=== PATIENT | female | born 1965 | race Two or more races ===

== ENCOUNTER → 2020-04-19 07:55 | Outpatient (BNVA) | payer OTHER, SELFPAY | PROVIDERS: PCP Family Medicine; Visit Provider Hospitalist | DX: J44.9 Chronic obstructive pulmonary disease, unspecified (principal); R91.8 Other nonspecific abnormal finding of lung field; F17.200 Nicotine dependence, unspecified, uncomplicated | CPT/HCPCS: 99204 ==

== ENCOUNTER 2020-05-05 11:10 | Outpatient (REF) | payer OTHER, SELFPAY ==
[2020-05-05 13:09] LABS: Erythrocyte Sedimentation Rate 40 MM/HR (0-20)
[2020-05-05 13:16] LABS: Vitamin B12 470 pg/mL (200-900)
[2020-05-05 13:20] LABS: TSH reflex Free T4 < 0.01 mIU/mL (0.32-4.0)
[2020-05-05 13:58] LABS: Anion Gap 15 (12-20); Blood Urea Nitrogen 10 mg/dL (9-16); C Reactive Protein 1.69 mg/dL (< or = 0.50); Calcium 9.7 mg/dL (8.4-10.2); Carbon Dioxide 27 mmol/L (22-29); Chloride 104 mmol/L (96-108); Estimated Glomerular Filt Rate > 60; Glucose Random 114 mg/dL (60-115); Lactate Dehydrogenase 202 U/L (122-220); Potassium 4.5 mmol/l (3.3-5.1); Sodium 141 mmol/L (135-145)
[2020-05-05 14:18] LABS: Free T4 (Free Thyroxine) 1.94 ng/dL (0.71-1.85)
== END 2020-05-05 11:11 | disposition home or self-care (01) ==
LOC: HO.LAB 11:10
PROVIDERS: PCP Family Medicine; Visit Provider Family Medicine
DX: M79.89 Other specified soft tissue disorders (principal); R00.2 Palpitations; R25.2 Cramp and spasm
CPT/HCPCS: 36415; 80048; 82550; 82607; 83615; 83735; 84439; 84443; 85652; 86140

== ENCOUNTER 2020-05-07 07:56 | Outpatient (REF) | payer OTHER, SELFPAY ==
--- NOTE | 2020-05-07 08:00 | CT_ITS ---
EXAMINATION: CT CHEST WITHOUT CONTRAST CLINICAL INFORMATION: Pulmonary nodules. COMPARISON: CTA chest 04/01/2020. TECHNIQUE: Multidetector volumetric CT imaging of the chest was done. Axial MIP volume rendering provided. Sagittal and coronal reformatted images were obtained. This CT examination was performed using dose optimization techniques as appropriate, variously including the following: *Automated exposure control *Adjustment of mA and/or kV according to patient size (this includes techniques or standardized protocols for targeted exams where dose is matched to indication/reason for exam; i.e. extremities or head) *Use of iterative reconstruction technique DLP: 146 mGy-cm. FINDINGS: CASH APPLICATION CLERK: Unremarkable. LUNGS: The lungs are hyperinflated from centrilobular emphysema but no acute pneumonic process. There are small right apical cyst. There is a 2 mm calcified nodule left upper lobe image 185/5, a subpleural 2 mm nodular density right upper lobe axial image 186/5, a 2 mm calcified nodule left upper lobe axial image 246/5, a 1 mm intrabronchial nodules in right upper lobe on axial image 222/5 and 229/5, a 3 mm nodule right lower lobe superior segment axial image 244/5 and a 7 mm nodule right upper lower lobe adjacent to the major fissure axial image 260/5. There are several additional calcified and noncalcified scattered nodules throughout both lungs. There are 3 mm nodules along the right minor fissure axial image 269/5. MEDIASTINUM: The thyroid lobes are symmetric and normal. The central trachea and the bronchi are widely patent. Heart size and the great vessels are normal caliber. There is a 1 cm pretracheal lymph node and small shotty lymph nodes in the para-aortic space. PLEURA: There is no pleural effusion. No pleural mass or thickening. AXILLA: No abnormal size lymph nodes seen. UPPER ABDOMEN: Visualized liver, spleen, pancreas and bilateral adrenal glands are unremarkable. The gallbladder has been surgically removed. OSSEOUS STRUCTURES: No lytic or sclerotic process seen. CT/CT chest wo con IMPRESSION: Bilateral scattered pulmonary nodules, largest nodule measuring 7 mm in the right lower lobe superior segment adjacent to the major fissure appears stable dating to 11/20/2019 exam. Additional smaller pulmonary nodules and daniela fissural nodules are stable as well. No new nodules. No acute process.
--- NOTE | 2020-05-07 09:10 | MR_ITS ---
EXAMINATION: MR KNEE WITHOUT AND WITH CONTRAST, LEFT CLINICAL INFORMATION: Soft tissue mass left tibial tuberosity COMPARISON: Radiographs 02/11/2020 ultrasound 03/17/2020 TECHNIQUE: MRI of the knee was performed before and after the intravenous administration of 10 mL Gadavist on a high-field scanner. The area of palpable concern is outlined by skin markers. FINDINGS: MENISCI: Medial meniscus: Minimal inner margin irregularity of the posterior horn. Otherwise intact. Lateral meniscus: Intact. LIGAMENTS: Cruciate: Intact. Collateral: Intact. EXTENSOR MECHANISM: Intact. ARTICULAR CARTILAGE/BONE: Patellofemoral compartment: Mild articular cartilage thinning of the central trochlea. Medial compartment: Mild cartilage thinning throughout the weightbearing aspect with mild surface irregularity of the posterolateral weightbearing femoral condyle. Lateral compartment: Normal. JOINT FLUID AND BURSAE: No significant joint effusion. There is no focal fluid collection, soft tissue mass, or abnormal enhancement in the area of palpable concern, between the skin markers superficial to the proximal tibia/tibial tubercle. MR/MR knee LT wo/w con IMPRESSION: No enhancing soft tissue mass or focal fluid collection to account for a clinically palpable abnormality at the anterior aspect of the proximal tibia. Minimal inner margin irregularity of the posterior horn of the medial meniscus. Menisci are otherwise intact. Mild patellofemoral/medial compartment osteoarthritis.
== END 2020-05-07 07:57 | disposition home or self-care (01) ==
LOC: HO.CT 07:56
PROVIDERS: PCP Family Medicine; Visit Provider Hospitalist
DX: M79.89 Other specified soft tissue disorders (principal); R91.8 Other nonspecific abnormal finding of lung field
CPT/HCPCS: 71250; 73723

== ENCOUNTER 2020-05-07 08:35 | Outpatient (REF) | payer OTHER, SELFPAY | END 2020-05-07 08:36 | disposition home or self-care (01) | LOC: HO.MRI 08:35 | PROVIDERS: PCP Family Medicine; Visit Provider Family Medicine | DX: Z13.89 Encounter for screening for other disorder (principal) ==

== ENCOUNTER → 2020-05-13 09:47 | Outpatient (BNVA) | payer OTHER, SELFPAY | PROVIDERS: PCP Family Medicine; Referring Provider Family Medicine; Visit Provider Internal Medicine Cardiovascular Disease | DX: R00.2 Palpitations (principal); I10 Essential (primary) hypertension; E05.90 Thyrotoxicosis, unspecified without thyrotoxic crisis or storm; F17.200 Nicotine dependence, unspecified, uncomplicated | CPT/HCPCS: 93005; 99202 ==

== ENCOUNTER 2020-05-17 07:45 | Outpatient (REF) | payer OTHER, SELFPAY ==
--- NOTE | 2020-05-17 | PFT_ITS ---
FLOWS: FEV1 of 55% of predicted at 1.73 L. FVC 68% of predicted at 2.61 L. FEV1 to FVC ratio of 0.66. Positive bronchodilator response. LUNG VOLUMES: Total lung capacity 83% of predicted at 4.70 L. Residual volume 117% of predicted at 2.44 L. Slow vital capacity 63% of predicted at 2.27 L. Expiratory reserve volume 24% of predicted at 0.38 L. Diffusion capacity is moderately decreased. IMPRESSION: Moderate to severe obstructive ventilatory defect with positive bronchodilator response. Decreased expiratory reserve volume suggests extrathoracic restriction likely secondary to abdominal obesity. Decreased diffusion capacity suggests emphysema. MD YANY Santoyo/MODL / [id number]
== END 2020-05-17 07:46 | disposition home or self-care (01) ==
LOC: HO.RESP 07:45
PROVIDERS: PCP Family Medicine; Visit Provider Family Medicine
DX: J44.9 Chronic obstructive pulmonary disease, unspecified (principal)
CPT/HCPCS: 94060; 94727; 94729

== ENCOUNTER 2020-05-26 12:20 | Outpatient (REF) | payer OTHER, SELFPAY ==
[2020-05-26 13:11] LABS: MANUAL DIFF FLAG NO
[2020-05-26 13:22] LABS: Basophils Percent Auto 0.4 % (0-2); Eosinophils Absolute Auto 0.1 X10*3/uL (0.0-0.4); Eosinophils Percent Auto 2.2 % (0-4); Hemoglobin 13.3 g/dl (12.0-16.0); Imm Gran Abs Auto 0.01 X10*3/uL (0.00-0.03); Imm Gran Pct Auto 0.2 % (0.0-0.4); Lymphocytes Absolute Auto 1.7 X10*3/uL (1.2-4.9); Lymphocytes Percent Auto 30.5 % (20-40); Mean Corpuscular HGB Conc 31.7 g/dl (31.0-35.0); Mean Corpuscular Hemoglobin 25.2 pg (27.0-33.0); Mean Corpuscular Volume 79.5 fL (80-98); Mean Platelet Volume 9.7 fL (9.4-12.3); Monocytes Absolute Auto 0.4 X10*3/uL (0.1-1.2); Monocytes Percent Auto 7.4 % (2-11); Neutrophils Absolute Auto 3.3 X10*3/uL (2.0-8.3); Neutrophils Percent Auto 59.3 % (45-73); Platelet Count 390 X10*3/uL (160-400); Red Blood Count 5.28 X10*6/uL (4.20-5.50); Red Cell Distribution Width 13.6 % (11.0-16.0); White Blood Count 5.6 X10*3/uL (4.8-10.8)
[2020-05-26 13:32] LABS: Alanine Aminotransferase 30 U/L (0-31); Albumin Level 4.2 g/dL (3.5-5.0); Alkaline Phosphatase 101 U/L (39-117); Anion Gap 13 (12-20); Aspartate Amino Transferase 26 U/L (5-31); Bilirubin Total 0.4 mg/dL (0.0-1.0); Blood Urea Nitrogen 11 mg/dL (9-16); Calcium 9.1 mg/dL (8.4-10.2); Carbon Dioxide 29 mmol/L (22-29); Chloride 101 mmol/L (96-108); Estimated Glomerular Filt Rate > 60; Glucose Random 109 mg/dL (60-115); Potassium 4.4 mmol/l (3.3-5.1); Sodium 139 mmol/L (135-145); Total Protein 7.2 g/dL (6.5-8.0)
[2020-05-26 13:56] LABS: T4 Thyroxine 7.2 ug/dL (4.5-12.0); TSH reflex Free T4 < 0.01 mIU/mL (0.32-4.0)
[2020-05-26 14:33] LABS: Free T4 (Free Thyroxine) 0.91 ng/dL (0.71-1.85)
[2020-05-27 07:42] LABS: Triiodothyronine T3 Free 2.9 pg/mL (2.3-4.2); Triiodothyronine T3 Total 92 ng/dL (76-181)
[2020-05-27 09:37] LABS: Thyroglobulin Antibodies 234 IU/mL (< or = 1)
[2020-05-31 19:11] LABS: Thyroid Stimulating Immunoglob 104 % baseline (<140)
== END 2020-05-26 12:21 | disposition home or self-care (01) ==
LOC: HO.LAB 12:20
PROVIDERS: PCP Family Medicine; Visit Provider Family Medicine
DX: E05.90 Thyrotoxicosis, unspecified without thyrotoxic crisis or storm (principal)
CPT/HCPCS: 36415; 80053; 84436; 84439; 84443; 84445; 84480; 84481; 85025; 86800

== ENCOUNTER 2020-05-27 12:31 | Outpatient (REF) | payer OTHER, SELFPAY | END 2020-05-27 12:32 | disposition home or self-care (01) | LOC: HO.LAB 12:31 | PROVIDERS: Visit Provider Internal Medicine | DX: Z20.828 Contact with and (suspected) exposure to other viral communicable diseases (principal) | CPT/HCPCS: C9803; U0003 ==

== ENCOUNTER 2020-06-02 10:42 | Outpatient (REF) | payer OTHER, SELFPAY ==
--- NOTE | 2020-06-02 | MM_ITS ---
EXAMINATION: MM SCREENING DIGITAL BREAST TOMOSYNTHESIS, BILATERAL CLINICAL INFORMATION: Screening. Asymptomatic. The lifetime risk of breast cancer based on the Tyrer-Cuzick Model is 17%. COMPARISON: Outside mammography 01/08/2018, 06/14/2017, 12/13/2016, 12/08/2016, 06/18/2014 ([place]). TECHNIQUE: Digital breast tomosynthesis is performed in both the craniocaudal and mediolateral oblique views along with computer-aided detection (CAD). Synthesized 2D images are generated from the tomosynthesis. FINDINGS: The breasts are heterogeneously dense, which may obscure small masses (ACR BI-RADS breast composition Category c). There are regional bilateral punctate and moderately coarse calcifications in each breast, more numerous on the left. Calcifications are overall increased since prior outside exams. There is no focal suspicious grouping or ductal distribution. There are scattered bilateral oil cysts with fine calcified rims, left outer quadrant and at least 3 on the right. There is no significant mass or architectural abnormality or developing density 4.8 cm mass central right breast noted on prior exam is no longer demonstrated. The axilla and skin contours are unremarkable. MM/MM tomosynthesis screening BI IMPRESSION: No significant changes from prior studies. ASSESSMENT: BI-RADS 2: Benign RECOMMENDATION: Routine annual mammography screening. This patient's information was entered into a reminder system with a target due date for their next mammogram.
== END 2020-06-02 10:43 | disposition home or self-care (01) ==
LOC: HO.MAMMO 10:42
PROVIDERS: PCP Family Medicine; Visit Provider Family Medicine
DX: Z12.31 Encounter for screening mammogram for malignant neoplasm of breast (principal)
CPT/HCPCS: 77063; 77067

== ENCOUNTER → 2020-06-04 09:38 | Outpatient (REF) | payer OTHER, SELFPAY ==
--- NOTE | 2020-06-04 09:43 | CA_ITS ---
Transthoracic Echocardiogram Patient (Last, First, Middle): Virginie Martins, Gender: Female Date of : 1965 Age: 54 Procedure Date: 06/04/2020 Procedure Type: Transthoracic Echocardiogram Location: OP Height: 172.72 cm Weight: 99.79 kg BSA: 2.13 m2 Heart Rate: bpm BP: 138 / 66 mmHg Prison Officer: Cristina MD: Vikas Bañuelos MD Symptoms: I10 - Essential (primary) hypertension Study Quality: Good ECG Rhythm: Sinus Conclusions: - The left ventricular systolic function is normal. The visually estimated ejection fraction is between 60-65%. - No obvious valvular pathology seen on this study. Findings Left Ventricle Normal left ventricular cavity size. There is normal left ventricular wall thickness. The left ventricular systolic function is normal. The visually estimated ejection fraction is between 60-65%. There is no evidence of regional wall motion abnormalities. Diastolic function is normal for age. Right Ventricle Normal right ventricular cavity size and systolic function. Atria Both atria are normal in size. Aortic Valve There is a normal trileaflet aortic valve. There is no aortic valve stenosis. There is no aortic valve regurgitation. Mitral Valve The mitral valve appears normal. There is trace mitral valve regurgitation. There is no mitral valve stenosis. Pulmonic Valve The pulmonic valve was not well visualized. Tricuspid Valve Normal tricuspid valve structure. There is trace tricuspid valve regurgitation. The pulmonary artery systolic pressure is normal. Great Vessels The aortic annulus, sinuses of valsalva, and asc aorta are normal in size. Venous The inferior vena cava is normal in size and collapses greater than 50% with inspiration. Pericardium/Pleural There is no evidence of pericardial effusion. Prior Study Comparison No prior study available for comparison. Recommendations, Care & Conclusions No obvious valvular pathology seen on this study. Measurements 2D Linear Measurements RVIDd: 2.18 RVIDd Index: 1.02 IVSd: 0.96 0.6-0.9/0.6-1.0 cm LVIDd: 5.51 3.9-5.3/4.2-5.9 cm LVIDd Index: 2.59 2.4-3.2/2.2-3.1 cm/m2 LVIDs: 3.53 2.0-3.6 cm LVPWd: 0.92 0.7-1.1 cm Ao Root: 2.60 2.1-3.5 cm LA Diam: 3.70 2.7-3.8/3.0-4.0 cm LAIDs Index: 1.74 1.5-2.3 cm/m2 LV Mass: 246.43 67-162/88-224 g LV Mass Index: 115.70 43-95/49-115 g/m2 LVOT Diam: 2.00 3.0+(-)1.3 cm 2D Systolic Function EF 4C: 57.60 >55% EF 2C: 68.50 >55% EF BiP: 62.70 >55% Mitral Valve MV Pk E: 0.88 MV PK A: 0.92 MV Decel Time: 252.00 E/A: 1.00 E'Lateral: 8.27 E'Medial: 10.10 E/E' Med: 8.70 E/E' Lat: 10.70 Aortic Valve AoV Pk Benito: 1.64 AoV Mn Benito: 1.20 AoV VTI: 0.37 AoV Pk Grad: 11.00 Aov Mn Grad: 6.00 LYNSEY Cont.VTI: 2.54 LVOT LVOT Pk Benito: 1.29 LVOT Mn Benito: 0.86 LVOT VTI: 0.30 LVOT Pk Grad: 7.00 LVOT Mn Grad: 3.00 LVOT Diam: 2.00 LVOT Area: 3.14 Diastolic Function MV Pk E: 0.88 MV Pk A: 0.92 E/A: 1.00 E'Medial: 10.10 E/E' Med: 8.70 E' Laterial: 8.27 E/E' Lat: 10.70 Tricuspid Valve TR Pk Benito: 2.42 TR Pk Grad: 23.00 RA Press: 3.00 RVSP: 26.00 Great Vessels Aorta Ao Root-2D: 2.60 2.0-3.7 cm Ao Asc: 3.00 2.1-3.4 cm Ao Arch: 2.70 Updated in Other Vendor System with Status of Final Aníbal Sparks MD electronically signed on 06/05/2020 1:17:30 PM with status of Final
== END ==
LOC: HO.CARD 09:38
PROVIDERS: Visit Provider Internal Medicine Cardiovascular Disease
DX: I10 Essential (primary) hypertension (principal); R00.2 Palpitations
CPT/HCPCS: 93306

== ENCOUNTER 2020-06-17 08:47 | Outpatient (REF) | payer OTHER, SELFPAY ==
--- NOTE | 2020-06-17 | US_ITS ---
EXAMINATION: US THYROID CLINICAL INFORMATION: Thyrotoxicosis. COMPARISON: None TECHNIQUE: Linear transducer marie-scale and color Doppler examination with attention to the region of the thyroid. FINDINGS: SIZE: Measurements of the thyroid lobes and nodules are given in sagittal, anteroposterior and transverse dimensions respectively. Right Thyroid Lobe: 4.3 x 1.8 x 1.6 cm, volume 6.5 mL. Parenchyma: The gland echotexture is homogeneous. Thyroid vascularity is normal. Left Thyroid Lobe: 3.2 x 1.5 x 1.4 cm, volume 3.5 mL. Parenchyma: The gland echotexture is homogeneous. Thyroid vascularity is normal. Isthmus: 0.3 cm in maximum AP dimension. RIGHT THYROID LOBE: No nodules. ISTHMUS: No nodules. LEFT THYROID LOBE: No nodules. NODES: No lymphadenopathy is seen in the tissue surrounding the thyroid gland. US/US thyroid IMPRESSION: Mild right thyroid lobe enlargement compared to left. No focal lesion seen.
== END 2020-06-17 08:48 | disposition home or self-care (01) ==
LOC: HO.US 08:47
PROVIDERS: Visit Provider Family Medicine
DX: E05.90 Thyrotoxicosis, unspecified without thyrotoxic crisis or storm (principal)
CPT/HCPCS: 76536

== ENCOUNTER → 2020-07-01 10:49 | Outpatient (BNVA) | payer OTHER, SELFPAY | PROVIDERS: PCP Family Medicine; Referring Provider Family Medicine; Visit Provider Internal Medicine | DX: Z13.89 Encounter for screening for other disorder (principal) | CPT/HCPCS: Q3014 ==

== ENCOUNTER 2020-07-19 08:39 | Outpatient (REF) | payer OTHER, SELFPAY ==
[2020-07-19 12:00] LABS: Free T4 (Free Thyroxine) 0.41 ng/dL (0.71-1.85); Thyroid Stimulating Hormone 56.42 uIU/mL (0.32-4.0)
[2020-07-20 07:57] LABS: Triiodothyronine T3 Total 41 ng/dL (76-181)
[2020-07-20 12:12] LABS: Thyroglobulin Antibodies 106 IU/mL (< or = 1); Thyroid Peroxidase Antibodies 54 IU/mL (<9)
[2020-07-22 14:33] LABS: Thyroid Stimulating Immunoglob 111 % baseline (<140)
[2020-07-24 23:13] LABS: Thyrotropin Receptor Antibody >40.00 IU/L (<=2.00)
== END 2020-07-19 08:40 | disposition home or self-care (01) ==
LOC: HO.LAB 08:39
PROVIDERS: Absent Provider Internal Medicine; PCP Family Medicine; Visit Provider Hospitalist
DX: J44.9 Chronic obstructive pulmonary disease, unspecified (principal); R91.8 Other nonspecific abnormal finding of lung field; R00.2 Palpitations; G47.33 Obstructive sleep apnea (adult) (pediatric); E05.90 Thyrotoxicosis, unspecified without thyrotoxic crisis or storm
CPT/HCPCS: 36415; 83520; 84439; 84443; 84445; 84480; 86376; 86800; 99212

== ENCOUNTER → 2020-08-09 12:50 | Outpatient (BNVA) | payer OTHER, SELFPAY | PROVIDERS: PCP Family Medicine; Visit Provider Internal Medicine Cardiovascular Disease | DX: Z76.89 Persons encountering health services in other specified circumstances (principal) | CPT/HCPCS: Q3014 ==

== ENCOUNTER → 2020-08-25 11:20 | Outpatient (BNVA) | payer OTHER, SELFPAY | PROVIDERS: Visit Provider Internal Medicine | DX: Z76.89 Persons encountering health services in other specified circumstances (principal) | CPT/HCPCS: Q3014 ==

== ENCOUNTER 2020-08-26 09:42 | Outpatient (REF) | payer OTHER, SELFPAY ==
[2020-08-26 11:21] LABS: Thyroid Stimulating Hormone 32.71 uIU/mL (0.32-4.0)
[2020-08-27 07:48] LABS: Triiodothyronine T3 Total 68 ng/dL (76-181)
== END 2020-08-26 09:43 | disposition home or self-care (01) ==
LOC: HO.LAB 09:42
PROVIDERS: Visit Provider Internal Medicine
DX: E03.9 Hypothyroidism, unspecified (principal)
CPT/HCPCS: 36415; 84439; 84443; 84480

== ENCOUNTER → 2020-09-22 09:10 | Outpatient (BNVA) | payer OTHER, SELFPAY | PROVIDERS: PCP Internal Medicine; Visit Provider Hospitalist | DX: J44.9 Chronic obstructive pulmonary disease, unspecified (principal); R91.8 Other nonspecific abnormal finding of lung field; G47.33 Obstructive sleep apnea (adult) (pediatric) | CPT/HCPCS: Q3014 ==

== ENCOUNTER → 2020-10-06 12:41 | Outpatient (REF) | payer OTHER, SELFPAY ==
[2020-10-06 14:56] LABS: Free T4 (Free Thyroxine) 1.04 ng/dL (0.71-1.85); Thyroid Stimulating Hormone 5.42 uIU/mL (0.32-4.0)
[2020-10-07 04:11] LABS: Triiodothyronine T3 Total 94 ng/dL (76-181)
== END ==
LOC: HO.SL 12:41
PROVIDERS: Absent Provider Internal Medicine; PCP Internal Medicine; Visit Provider Hospitalist
DX: G47.33 Obstructive sleep apnea (adult) (pediatric) (principal); E03.9 Hypothyroidism, unspecified
CPT/HCPCS: 36415; 84439; 84443; 84480; 95806

== ENCOUNTER → 2020-10-20 09:34 | Outpatient (BNVA) | payer OTHER, SELFPAY | PROVIDERS: PCP Internal Medicine; Visit Provider Internal Medicine Endocrinology, Diabetes & Metabolism | DX: Z13.89 Encounter for screening for other disorder (principal) | CPT/HCPCS: Q3014 ==

== ENCOUNTER → 2020-10-22 13:20 | Outpatient (BNVA) | payer OTHER, SELFPAY | PROVIDERS: PCP Internal Medicine; Visit Provider Hospitalist | DX: G47.33 Obstructive sleep apnea (adult) (pediatric) (principal); R91.8 Other nonspecific abnormal finding of lung field; J44.9 Chronic obstructive pulmonary disease, unspecified; F17.200 Nicotine dependence, unspecified, uncomplicated | CPT/HCPCS: 99212 ==

== ENCOUNTER → 2020-10-25 12:52 | Outpatient (BNVA) | payer OTHER, SELFPAY | PROVIDERS: PCP Internal Medicine; Visit Provider Internal Medicine Cardiovascular Disease | DX: I10 Essential (primary) hypertension (principal); J44.9 Chronic obstructive pulmonary disease, unspecified; R00.2 Palpitations | CPT/HCPCS: Q3014 ==

== ENCOUNTER 2020-11-11 08:01 | Outpatient (REF) | payer OTHER, SELFPAY ==
[2020-11-11 09:04] LABS: Glucose Fasting 145 mg/dL (60-99)
[2020-11-11 09:14] LABS: Estimated Average Glucose 117 mg/dL; Hemoglobin A1c % 5.7 %
[2020-11-11 09:30] LABS: Free T4 (Free Thyroxine) 0.99 ng/dL (0.71-1.85)
== END 2020-11-11 08:02 | disposition home or self-care (01) ==
LOC: HO.LAB 08:01
PROVIDERS: Internal Medicine; PCP Internal Medicine; Visit Provider Internal Medicine Endocrinology, Diabetes & Metabolism
DX: E05.90 Thyrotoxicosis, unspecified without thyrotoxic crisis or storm (principal); R73.03 Prediabetes
CPT/HCPCS: 36415; 82947; 83036; 84439; 84443

== ENCOUNTER 2020-11-12 08:01 | Outpatient (REF) | payer OTHER, SELFPAY ==
[2020-11-12 09:17] LABS: Glucose Fasting 145 mg/dL (60-99)
[2020-11-12 10:30] LABS: Glucose 1 Hour 316 mg/dL
[2020-11-12 11:38] LABS: Glucose 2 Hour 234 mg/dL
== END 2020-11-12 08:02 | disposition home or self-care (01) ==
LOC: HO.LAB 08:01
PROVIDERS: PCP Internal Medicine; Visit Provider Internal Medicine Endocrinology, Diabetes & Metabolism
DX: R73.03 Prediabetes (principal)
CPT/HCPCS: 36415

== ENCOUNTER 2020-12-04 08:39 | Emergency (ER) | payer OTHER, SELFPAY | END 2020-12-04 10:09 | disposition left against medical advice (07) | PROVIDERS: Emergency Provider Emergency Medicine; PCP Internal Medicine | DX: R07.9 Chest pain, unspecified (principal) ==

== ENCOUNTER 2020-12-19 15:14 | Emergency (ER) | payer OTHER, SELFPAY ==
--- NOTE | ~2020-12-19 | XR_ITS ---
EXAMINATION: XR TIBIA AND FIBULA, LEFT CLINICAL INFORMATION: Pain COMPARISON: 02/11/2020 plain films of the knee TECHNIQUE: AP and lateral views of the left tibia and fibula were obtained. FINDINGS: The bones and soft tissues are normal. No fracture. No osseous lesions. XR/XR tibia fibula LT 2V IMPRESSION: Normal left tibia and fibula.
[2020-12-19 15:47] VITALS: BP 143/67; PULSE 72; RESP 16; TEMP 36.7; O2SAT 97; BMI 33.4
[2020-12-19 16:43] LABS: MANUAL DIFF FLAG NO
[2020-12-19 16:47] LABS: Basophils Percent Auto 0.4 % (0-2); Eosinophils Absolute Auto 0.2 X10*3/uL (0.0-0.4); Eosinophils Percent Auto 2.9 % (0-4); Hematocrit 43.8 % (37-47); Hemoglobin 14.3 g/dl (12.0-16.0); Imm Gran Abs Auto 0.01 X10*3/uL (0.00-0.03); Imm Gran Pct Auto 0.2 % (0.0-0.4); Lymphocytes Absolute Auto 1.9 X10*3/uL (1.2-4.9); Lymphocytes Percent Auto 33.9 % (20-40); Mean Corpuscular HGB Conc 32.6 g/dl (31.0-35.0); Mean Corpuscular Hemoglobin 28.4 pg (27.0-33.0); Mean Corpuscular Volume 87.1 fL (80-98); Mean Platelet Volume 9.7 fL (9.4-12.3); Monocytes Absolute Auto 0.3 X10*3/uL (0.1-1.2); Monocytes Percent Auto 5.6 % (2-11); Neutrophils Absolute Auto 3.2 X10*3/uL (2.0-8.3); Platelet Count 304 X10*3/uL (160-400); Red Blood Count 5.03 X10*6/uL (4.20-5.50); Red Cell Distribution Width 13.9 % (11.0-16.0); White Blood Count 5.5 X10*3/uL (4.8-10.8)
[2020-12-19 16:51] LABS: Prothrombin Time 12.3 SEC (10.8-13.0)
[2020-12-19 17:21] LABS: Anion Gap 15 (12-20); Blood Urea Nitrogen 10 mg/dL (9-16); Calcium 9.6 mg/dL (8.4-10.2); Carbon Dioxide 25 mmol/L (22-29); Chloride 105 mmol/L (96-108); Creatinine Clr Calc Pharmacy 96.9; Estimated Glomerular Filt Rate > 60; Glucose Random 161 mg/dL (60-115); Potassium 4.2 mmol/L (3.3-5.1); Sodium 141 mmol/L (135-145)
--- NOTE | 2020-12-19 18:03 | ED.EXTPRO ---
HPI - Extremity Problem General Chief complaint: Extremity Problem Stated complaint: lump behind knee Time Seen by Provider: 12/19/20 17:02 History of Present Illness HPI Narrative: Patient complains of painful lump on the bright area, triage note said in the back of the leg but she has no complaints in the back of her leg all complaints are about a painful lump over the bright area, she denies any calf pain she denies any posterior leg pain she denies any chest pain or shortness of breath no fever chills no injury Related Data Home Medications Medication Instructions Recorded Confirmed albuterol sulfate 2.5 mg INHALATION QID PRN 04/10/20 12/31/20 albuterol sulfate 90 mcg/actuation 2 puff INHALATION Q4-6H PRN 04/10/20 12/31/20 aerosol inhaler alprazolam 1 mg tablet 1 mg PO BID PRN 04/10/20 12/31/20 nicotine 10 mg inhalation cartridge 0 inh INHALATION 04/10/20 12/31/20 omeprazole 20 mg capsule,delayed 20 mg PO BID 04/10/20 12/31/20 release sumatriptan 20 mg/actuation nasal 20 mg INTRANASAL DAILY PRN 04/10/20 12/31/20 spray vitamin B complex-folic acid 0.4 1 tab PO DAILY 04/10/20 12/31/20 mg tablet escitalopram oxalate 20 mg tablet 20 mg PO DAILY 04/19/20 12/31/20 ropinirole 1 mg tablet 3 mg PO BID tab 10/20/20 12/31/20 ondansetron HCl 4 mg tablet 4 mg PO TID PRN 12/31/20 12/31/20 Previous Rx's Medication Instructions Recorded umeclidinium 62.5 mcg-vilanterol 1 inh INHALATION DAILY 30 Days #60 04/19/20 25 mcg/actuation powdr for ea inhalation fluticasone propionate 220 1 puff INHALATION BID 30 Days #12 g 09/22/20 mcg/actuation HFA aerosol inhaler blood sugar diagnostic #50 ea 11/16/20 lancets 28 gauge #50 ea 11/16/20 blood-glucose meter 1 ea MISCELLANEOUS .Once a day 30 12/14/20 Days #1 ea levothyroxine 100 mcg tablet 100 mcg PO DAILY 90 Days #90 tab 12/31/20 metformin 500 mg tablet,extended 500 mg PO DAILY 30 Days #30 tab 12/31/20 release 24hr Allergies Allergy/AdvReac Type Severity Reaction Status Date / Time Tetanus Vaccines and Toxoid Allergy Intermediate SWELLING, Verified 12/19/20 15:53 [TETANUS VACCINES & TOXOID] REDNESS adhesive tape Allergy Unknown BLISTERS Verified 12/19/20 15:53 surgical tape Allergy Unknown hives/boils Uncoded 12/19/20 15:53 Review of Systems Review of Systems: Positive for lump on right leg Negatives are no fever no chills no dizziness no weakness no fainting no numbness weakness or tingling no chest pain no shortness of breath no calf pain no leg swelling no rash Yes all other systems are reviewed and are negative PMFSH Past Medical History Source: nursing notes reviewed Medical History Asthma-COPD overlap syndrome Hypertension Hypothyroidism Obesity (BMI 30-39.9) BOY (obstructive sleep apnea) Palpitations Prediabetes Pulmonary nodules Tobacco dependence Type 2 diabetes mellitus Surgical History H/O arthroscopy of right knee H/O excision of ganglion cyst H/O hand surgery H/O release of tendon H/O wrist surgery History of colon resection History of esophagogastroduodenoscopy (EGD) Hx of cholecystectomy Hx of colonoscopy Hx of lithotripsy Status post tendon repair Status post trigger finger release Family History Family History Father Myocardial infarction Hypertension Diabetes CVD (cardiovascular disease) Mother Restless leg syndrome Diabetes Paternal Aunt Breast cancer Uterine cancer Social History Social History (Updated 12/31/20 @ 09:04 by CHRISTA Tatum) Patient Tobacco Use Status: Former Tobacco user Years Smoked: 36 Physical Exam Vital Signs: Vital Signs: Last Vital Signs Temp 98.1 F 12/19/20 15:47 Pulse 72 12/19/20 15:47 Resp 16 12/19/20 15:47 BP 143/67 H 12/19/20 15:47 Pulse Ox 97 12/19/20 15:47 Body Mass Index 33.4 General appearance no acute distress Head is normocephalic atraumatic Neck is supple Respiratory no distress Extremities full range of motion x4 including right foot ankle knee and hip The right lower leg has a pretibial mass which is normal in color it is not red warm or fluctuant it is mildly tender, skin is intact there is no discharge or wound, there is no calf tenderness no posterior leg tenderness, neurovascular intact distal The back normal range of motion The skin no rash Neuro no gross motor or sensory deficits Course Course Course Narrative: X-ray was normal, no evidence of any malignancy on x-ray I advised patient I am not sure what the lump on her right leg is and it would be rivera to follow-up to see if it needs removal or biopsy and she understands that she needs to follow closely for further evaluation of this mass on her pretibial area MDM - Extremity (Nontraumatic) Lab Data Result diagrams: 12/19/20 16:39 12/19/20 16:39 Labs: Lab Results 12/19/20 12/19/20 12/19/20 Range/Units 16:39 16:39 16:39 WBC 5.5 (4.8-10.8) X10*3/uL RBC 5.03 (4.20-5.50) X10*6/uL Hgb 14.3 (12.0-16.0) g/dl Hct 43.8 (37-47) % MCV 87.1 (80-98) fL MCH 28.4 (27.0-33.0) pg MCHC 32.6 (31.0-35.0) g/dl RDW 13.9 (11.0-16.0) % Plt Count 304 (160-400) X10*3/uL MPV 9.7 (9.4-12.3) fL Immature Gran % (Auto) 0.2 (0.0-0.4) % Neut % (Auto) 57.0 (45-73) % Lymph % (Auto) 33.9 (20-40) % [place] % (Auto) 5.6 (2-11) % Eos % (Auto) 2.9 (0-4) % Baso % (Auto) 0.4 (0-2) % Lymph # (Auto) 1.9 (1.2-4.9) X10*3/uL [place] # (Auto) 0.3 (0.1-1.2) X10*3/uL Eos # (Auto) 0.2 (0.0-0.4) X10*3/uL Baso # (Auto) 0.0 (0.0-0.2) X10*3/uL Abs Immat Gran (auto) 0.01 (0.00-0.03) X10*3/uL Absolute Neuts (auto) 3.2 (2.0-8.3) X10*3/uL Absolute Nucleated RBC 0.000 (0.0-0.012) X10*3/uL Nucleated RBC % (auto) 0.0 (0.0-0.2) /100WBC PT 12.3 (10.8-13.0) SEC INR 1.0 (0.9-1.1) Sodium 141 (135-145) mmol/L Potassium 4.2 (3.3-5.1) mmol/L Chloride 105 (96-108) mmol/L Carbon Dioxide 25 (22-29) mmol/L Anion Gap 15 (12-20) BUN 10 (9-16) mg/dL Creatinine 0.81 (0.5-1.4) mg/dL Estim Creat Clear Calc 96.9 Estimated GFR > 60 Random Glucose 161 H D (60-115) mg/dL Calcium 9.6 (8.4-10.2) mg/dL Magnesium 2.0 (1.6-2.6) mg/dL Discharge Plan Discharge Clinical Impression: Lower leg mass Patient Disposition: Home, Self-Care Additional Instructions: X-ray of her lower leg was normal The painful lump is likely a soft tissue mass , as I am not sure what it is it is important that you follow-up with both primary doctor and orthopedist or surgeon for further evaluation They will decide if it should be removed or biopsied or further imaging Return any time any worse condition or concerns Prescriptions: No Action (DME) FreeStyle Test Strip See Rx Instructions .ROUTE .MEDSUPPLY Qty: 50 RF: 6 (DME) lancets [FreeStyle Lancets] 28 gauge misc See Rx Instructions .ROUTE .MEDSUPPLY Qty: 50 RF: 6 blood-glucose meter [FreeStyle Lite Meter] Kit 1 ea miscellaneous .Once a day 30 Days Qty: 1 RF: 0 escitalopram oxalate [Lexapro] 20 mg tablet 20 mg PO DAILY RF: 0 Anoro Ellipta 62.5-25 mcg/actuation blister with device 1 inh inhalation DAILY 30 Days Qty: 60 RF: 11 Nicotrol 10 mg cartridge 0 inh inhalation RF: 0 alprazolam 1 mg tablet 1 mg PO BID PRN (Reason: anxiety) RF: 0 vitamin B complex-folic acid 0.4 mg tablet 1 tab PO DAILY RF: 0 sumatriptan 20 mg/actuation spray,non-aerosol 20 mg intranasal DAILY PRNRF: 0 albuterol sulfate 90 mcg/actuation HFA aerosol inhaler 2 puff inhalation Q4-6H PRNRF: 0 albuterol sulfate 2.5 mg /3 mL (0.083 %) solution for nebulization 2.5 mg inhalation QID PRNRF: 0 omeprazole 20 mg capsule,delayed release(DR/EC) 20 mg PO BID RF: 0 ropinirole 1 mg tablet 3 mg PO BID RF: 0 ondansetron HCl 4 mg tablet 4 mg PO TID PRN (Reason: anxiety) RF: 0 Flovent HFA 220 mcg/actuation HFA aerosol inhaler 1 puff inhalation BID 30 Days Qty: 12 RF: 11 levothyroxine 100 mcg tablet 100 mcg PO DAILY 90 Days Qty: 90 RF: 1 metformin 500 mg tablet extended release 24hr 500 mg PO DAILY 30 Days Qty: 30 RF: 4 Referrals: Gladis Phillip MD [Physician] - 2 days (Painful left leg lump) Hayes Phan MD [Physician] - 2 days (Left leg painful soft tissue lump) Interventions: ED Discharge Assessment Last Done: 12/19/20 18:22 Discharge Date/Time: 12/19/20 18:24
== END 2020-12-19 18:24 | disposition home or self-care (01) ==
PROVIDERS: Emergency Provider Emergency Medicine; PCP Internal Medicine
DX: R22.42 Localized swelling, mass and lump, left lower limb (principal); M79.662 Pain in left lower leg; E11.9 Type 2 diabetes mellitus without complications; F17.210 Nicotine dependence, cigarettes, uncomplicated
CPT/HCPCS: 36415; 73590; 80048; 83735; 85025; 85610; 99283

== ENCOUNTER 2020-12-28 10:03 | Outpatient (REF) | payer OTHER, SELFPAY ==
--- NOTE | ~2020-12-28 | XR_ITS ---
EXAMINATION: XR KNEE, RIGHT XR KNEE, LEFT CLINICAL INFORMATION: Knee pain COMPARISON: Radiographs left lower leg 12/19/2020, left knee 02/11/2020. TECHNIQUE: The right knee is imaged in 5 views including upright AP view with weightbearing. The left knee is imaged in 4 views including upright AP view with weightbearing. FINDINGS: Right: Normal bony mineralization. No fracture, dislocation, or suprapatellar effusion. There is no joint narrowing or erosive change or chondrocalcinosis. Axial view patella shows no lateralization or tilting. Hoffa's fat pad unremarkable. Left: Normal bony mineralization. No fracture, dislocation, or suprapatellar effusion. There is no joint narrowing or erosive change or chondrocalcinosis. Axial view patella shows no lateralization or tilting. Hoffa's fat pad unremarkable. XR/XR knee RT 4V IMPRESSION: Normal bilateral knees.
--- NOTE | ~2020-12-28 | XR_ITS ---
EXAMINATION: XR KNEE, RIGHT XR KNEE, LEFT CLINICAL INFORMATION: Knee pain COMPARISON: Radiographs left lower leg 12/19/2020, left knee 02/11/2020. TECHNIQUE: The right knee is imaged in 5 views including upright AP view with weightbearing. The left knee is imaged in 4 views including upright AP view with weightbearing. FINDINGS: Right: Normal bony mineralization. No fracture, dislocation, or suprapatellar effusion. There is no joint narrowing or erosive change or chondrocalcinosis. Axial view patella shows no lateralization or tilting. Hoffa's fat pad unremarkable. Left: Normal bony mineralization. No fracture, dislocation, or suprapatellar effusion. There is no joint narrowing or erosive change or chondrocalcinosis. Axial view patella shows no lateralization or tilting. Hoffa's fat pad unremarkable. XR/XR knee LT 4V IMPRESSION: Normal bilateral knees.
[2020-12-28 11:58] LABS: Rheumatoid Factor < 15.0 IU/mL (<15.0)
[2020-12-28 12:06] LABS: Free T4 (Free Thyroxine) 0.81 ng/dL (0.71-1.85); Thyroid Stimulating Hormone 5.14 uIU/mL (0.32-4.0)
[2020-12-31 10:07] LABS: Anti Nuclear Antibody Pattern Nuclear, Homogeneous; Anti Nuclear Antibody Screen POSITIVE (NEGATIVE)
[2020-12-31 14:36] LABS: Cyclic Citrullinated Peptide <16 UNITS
== END 2020-12-28 10:04 | disposition home or self-care (01) ==
LOC: HO.LAB 10:03
PROVIDERS: Absent Provider Internal Medicine; PCP Internal Medicine; Visit Provider Internal Medicine Endocrinology, Diabetes & Metabolism
DX: M25.561 Pain in right knee (principal); M25.562 Pain in left knee; E03.8 Other specified hypothyroidism; E06.3 Autoimmune thyroiditis
CPT/HCPCS: 36415; 73564; 84439; 84443; 86038; 86039; 86200; 86431

== ENCOUNTER → 2020-12-31 09:01 | Outpatient (BNVA) | payer OTHER, SELFPAY | PROVIDERS: PCP Internal Medicine; Visit Provider Internal Medicine Endocrinology, Diabetes & Metabolism | CPT/HCPCS: Q3014 ==

== ENCOUNTER → 2021-01-03 09:28 | Outpatient (BNVA) | payer OTHER, SELFPAY | PROVIDERS: PCP Internal Medicine; Visit Provider Dietitian, Registered | DX: E11.9 Type 2 diabetes mellitus without complications (principal) | CPT/HCPCS: 97802 ==

== ENCOUNTER → 2021-01-05 14:43 | Outpatient (BNVA) | payer OTHER, SELFPAY | PROVIDERS: PCP Internal Medicine; Visit Provider Surgery | DX: R22.42 Localized swelling, mass and lump, left lower limb (principal); I10 Essential (primary) hypertension; E11.9 Type 2 diabetes mellitus without complications; E03.9 Hypothyroidism, unspecified; E66.9 Obesity, unspecified; G47.33 Obstructive sleep apnea (adult) (pediatric); Z68.33 Body mass index [BMI] 33.0-33.9, adult; Z87.891 Personal history of nicotine dependence; Z88.7 Allergy status to serum and vaccine; Z88.8 Allergy status to other drugs, medicaments and biological substances; Z79.51 Long term (current) use of inhaled steroids; Z79.84 Long term (current) use of oral hypoglycemic drugs; Z79.899 Other long term (current) drug therapy | CPT/HCPCS: 99202 ==

== ENCOUNTER 2021-01-20 11:00 | Outpatient (REF) | payer OTHER, SELFPAY ==
[2021-01-20 13:44] LABS: Free T4 (Free Thyroxine) 0.88 ng/dL (0.71-1.85); Thyroid Stimulating Hormone 6.45 uIU/mL (0.32-4.0)
[2021-01-20 14:02] LABS: Erythrocyte Sedimentation Rate 10 MM/HR (0-20)
[2021-01-21 11:11] LABS: Complement C3 121 mg/dL (83-193)
[2021-01-22 14:42] LABS: Anti DNA DS Antibody 1 IU/mL; Antibody to SS-A Antigen <1.0 NEG AI (<1.0 NEG); Antibody to SS-B Antigen <1.0 NEG AI (<1.0 NEG)
[2021-01-26 14:11] LABS: Cyclic Citrullinated Peptide <16 UNITS
== END 2021-01-20 11:01 | disposition home or self-care (01) ==
LOC: HO.LAB 11:00
PROVIDERS: Internal Medicine Endocrinology, Diabetes & Metabolism; PCP Internal Medicine; Visit Provider Hospitalist
DX: J44.9 Chronic obstructive pulmonary disease, unspecified (principal); R91.8 Other nonspecific abnormal finding of lung field; G47.33 Obstructive sleep apnea (adult) (pediatric); E03.8 Other specified hypothyroidism; E06.3 Autoimmune thyroiditis; F17.200 Nicotine dependence, unspecified, uncomplicated; Z79.899 Other long term (current) drug therapy
CPT/HCPCS: 36415; 84439; 84443; 85652; 86160; 86200; 86225; 86235; 99212

== ENCOUNTER → 2021-02-28 12:01 | Outpatient (BNVA) | payer OTHER, SELFPAY | PROVIDERS: PCP Internal Medicine; Visit Provider Dietitian, Registered | DX: E11.9 Type 2 diabetes mellitus without complications (principal); Z79.84 Long term (current) use of oral hypoglycemic drugs | CPT/HCPCS: 97803 ==

== ENCOUNTER 2021-03-02 15:36 | Emergency (ER) | payer OTHER, SELFPAY | END 2021-03-02 17:59 | disposition left against medical advice (07) | PROVIDERS: Emergency Provider Emergency Medicine; PCP Internal Medicine | DX: R22.2 Localized swelling, mass and lump, trunk (principal) ==

== ENCOUNTER 2021-03-27 00:29 | Emergency (ER) | payer OTHER, SELFPAY ==
--- NOTE | ~2021-03-27 | CT_ITS ---
EXAMINATION: CT ABDOMEN AND PELVIS WITH CONTRAST CLINICAL INFORMATION: Epigastric pain. COMPARISON: 01/14/2020 TECHNIQUE: Multidetector volumetric images were obtained from the superior aspect of the liver through the pubic symphysis following administration 85 mL of Omnipaque 350 intravenous contrast. Sagittal and coronal reformatted images were obtained on the technologist's workstation. Oral contrast: No This CT examination was performed using dose optimization techniques as appropriate, variously including the following: *Automated exposure control *Adjustment of mA and/or kV according to patient size (this includes techniques or standardized protocols for targeted exams where dose is matched to indication/reason for exam; i.e. extremities or head) *Use of iterative reconstruction technique DLP: 807 mGy-cm FINDINGS: LUNG BASES: The visualized lung bases are unremarkable. LIVER, GALLBLADDER, AND BILIARY TREE: The liver is normal in size, shape, and attenuation. No focal hepatic lesion or biliary ductal dilatation is present. Cholecystectomy. PANCREAS: Unremarkable. SPLEEN: Unremarkable. ADRENAL GLANDS: Unremarkable. KIDNEYS AND URETERS: The kidneys are normal in size, shape, and attenuation. There are a few bilateral punctate nonobstructive intrarenal calculi suspected. No ureteral calculi. No hydronephrosis. No perinephric stranding. BLADDER: Unremarkable. GASTROINTESTINAL TRACT: Status post sigmoid colectomy with intact anastomosis within the pelvis. Scattered colonic diverticula. No evidence of diverticulitis. Normal appendix. Stomach and small bowel unremarkable. ABDOMINAL WALL: Small epigastric midline omental fat-containing hernia without inflammation. LYMPH NODES: Normal. VASCULAR: Unremarkable. PELVIC VISCERA: Unremarkable. OSSEOUS STRUCTURES: Unremarkable. CT/CT abdomen pelvis w con IMPRESSION: No acute findings within the abdomen or pelvis to explain the patient's symptomatology. Scattered colonic diverticula without evidence of diverticulitis. Cholecystectomy. Query punctate bilateral nonobstructive intrarenal calculi.
--- NOTE | ~2021-03-27 | XR_ITS ---
EXAMINATION: XR CHEST CLINICAL INFORMATION: Palpitations COMPARISON: CT chest dated 05/07/2020 TECHNIQUE: Frontal view of the chest was obtained. FINDINGS: No significant abnormality is noted involving the heart, lungs, mediastinum, bony thorax or soft tissues. XR/XR chest 1V IMPRESSION: Unremarkable examination.
[2021-03-27 00:33] VITALS: BP 242/120; PULSE 68; O2SAT 98
[2021-03-27 00:34] VITALS: BP 153/60; PULSE 65; RESP 14; TEMP 37; O2SAT 98; BMI 33.4
--- NOTE | 2021-03-27 00:43 | ECG_ITS ---
Test Reason : PALPITATIONS Blood Pressure : / mmHG Vent. Rate : 065 BPM Atrial Rate : 065 BPM P-R Int : 134 ms QRS Dur : 094 ms QT Int : 412 ms P-R-T Axes : 053 023 013 degrees QTc Int : 428 ms Normal sinus rhythm Normal ECG When compared with ECG of 01-APR-2020 15:18, No significant change was found Referred By: Generic ED Physician Electronically Signed By:LUKAS MILLER
[2021-03-27 00:50] LABS: MANUAL DIFF FLAG NO
[2021-03-27 00:51] LABS: Basophils Percent Auto 0.6 % (0-2); Eosinophils Absolute Auto 0.3 X10*3/uL (0.0-0.4); Eosinophils Percent Auto 3.5 % (0-4); Hematocrit 41.8 % (37-47); Imm Gran Abs Auto 0.01 X10*3/uL (0.00-0.03); Imm Gran Pct Auto 0.1 % (0.0-0.4); Lymphocytes Percent Auto 42.1 % (20-40); Mean Corpuscular HGB Conc 33.5 g/dl (31.0-35.0); Mean Corpuscular Hemoglobin 29.7 pg (27.0-33.0); Mean Corpuscular Volume 88.7 fL (80-98); Mean Platelet Volume 9.6 fL (9.4-12.3); Monocytes Absolute Auto 0.5 X10*3/uL (0.1-1.2); Monocytes Percent Auto 6.8 % (2-11); Neutrophils Absolute Auto 3.4 X10*3/uL (2.0-8.3); Neutrophils Percent Auto 46.9 % (45-73); Platelet Count 275 X10*3/uL (160-400); Red Blood Count 4.71 X10*6/uL (4.20-5.50); Red Cell Distribution Width 15.5 % (11.0-16.0); White Blood Count 7.2 X10*3/uL (4.8-10.8)
[2021-03-27 01:07] LABS: Anion Gap 12 (12-20); Blood Urea Nitrogen 14 mg/dL (9-16); Carbon Dioxide 28 mmol/L (22-29); Chloride 105 mmol/L (96-108); Creatinine Clr Calc Pharmacy 90.2; Estimated Glomerular Filt Rate > 60; Glucose Random 146 mg/dL (60-115); Sodium 141 mmol/L (135-145)
[2021-03-27 01:11] VITALS: BP 155/62; PULSE 68; RESP 15; O2SAT 97
[2021-03-27 01:12] LABS: Troponin-I High Sensitivity < 3.5 ng/L (<3.5-17.0)
[2021-03-27 01:28] LABS: Thyroid Stimulating Hormone 28.86 uIU/mL (0.32-4.0)
--- NOTE | 2021-03-27 01:46 | ED_ITS ---
HPI - Arrhythmia/Palpitations General Chief Complaint: Arrhythmia/Palpitations Stated Complaint: Heart palpitations Time Seen by Provider: 03/27/21 00:50 Source: patient Mode of arrival: EMS History of Present Illness HPI narrative: 55-year-old female with history diabetes, Michael's, BOY, COPD who is brought in via EMS for onset of palpitations while watching TV and this was associated with headache some mild dizziness and patient states that she had arm discomfort ?if felt heavy?. But otherwise denies any visual/speech/auditory abnormalities in denies any unilateral weakness/numbness/tingling. Otherwise patient has had some mild nausea and states that she had some pain radiating into her neck. Related Data Home Medications Medication Instructions Recorded Confirmed albuterol sulfate 2.5 mg INHALATION QID PRN 04/10/20 01/20/21 albuterol sulfate 90 mcg/actuation 2 puff INHALATION Q4-6H PRN 04/10/20 01/20/21 aerosol inhaler alprazolam 1 mg tablet 1 mg PO BID PRN 04/10/20 01/20/21 nicotine 10 mg inhalation cartridge 0 inh INHALATION 04/10/20 01/20/21 omeprazole 20 mg capsule,delayed 20 mg PO BID 04/10/20 01/20/21 release sumatriptan 20 mg/actuation nasal 20 mg INTRANASAL DAILY PRN 04/10/20 01/20/21 spray vitamin B complex-folic acid 0.4 1 tab PO DAILY 04/10/20 01/20/21 mg tablet escitalopram oxalate 20 mg tablet 20 mg PO DAILY 04/19/20 01/20/21 (Lexapro) ropinirole 1 mg tablet 3 mg PO BID tab 10/20/20 01/20/21 ondansetron HCl 4 mg tablet 4 mg PO TID PRN 12/31/20 01/20/21 fluticasone propionate 50 spray INTRANASAL 01/20/21 01/20/21 mcg/actuation nasal spray,suspension meloxicam 15 mg tablet 15 mg PO DAILY 01/20/21 01/20/21 nabumetone 750 mg tablet 750 mg PO BID 01/20/21 01/20/21 tizanidine 2 mg tablet 2 mg PO Q8H PRN 01/20/21 01/20/21 vitamin B complex 1 tab PO DAILY 01/20/21 01/20/21 Previous Rx's Medication Instructions Recorded umeclidinium 62.5 mcg-vilanterol 1 inh INHALATION DAILY 30 Days #60 04/19/20 25 mcg/actuation powdr for ea inhalation (Anoro Ellipta) fluticasone propionate 220 1 puff INHALATION BID 30 Days #12 g 09/22/20 mcg/actuation HFA aerosol inhaler (Flovent HFA) blood sugar diagnostic (FreeStyle #50 ea 11/16/20 Test) lancets 28 gauge (FreeStyle #50 ea 11/16/20 Lancets) blood-glucose meter (FreeStyle 1 ea MISCELLANEOUS .Once a day 30 12/14/20 Lite Meter) Days #1 ea metformin 500 mg tablet,extended 500 mg PO DAILY 30 Days #30 tab 12/31/20 release 24hr hydroxychloroquine 200 mg tablet 200 mg PO DAILY #90 tab 01/20/21 levothyroxine 112 mcg tablet 112 mcg PO DAILY 30 Days #30 tab 03/01/21 Allergies Allergy/AdvReac Type Severity Reaction Status Date / Time adhesive tape Allergy Severe BLISTERS Verified 01/20/21 11:37 Tetanus Vaccines and Toxoid Allergy Intermediate SWELLING, Verified 01/20/21 11:37 [TETANUS VACCINES & TOXOID] REDNESS surgical tape Allergy Severe hives/boils Uncoded 01/20/21 11:37 Review of Systems Review of Systems: Pertinent positives and negatives as stated in HPI 10 point review of systems otherwise negative. [facility] Past Medical History Source: nursing notes reviewed Medical History Asthma-COPD overlap syndrome Hypertension Hypothyroidism Obesity (BMI 30-39.9) BOY (obstructive sleep apnea) Palpitations Prediabetes Pulmonary nodules Tobacco dependence Type 2 diabetes mellitus Surgical History H/O arthroscopy of right knee H/O excision of ganglion cyst H/O hand surgery H/O release of tendon H/O wrist surgery History of colon resection History of esophagogastroduodenoscopy (EGD) Hx of cholecystectomy Hx of colonoscopy Hx of lithotripsy Status post tendon repair Status post trigger finger release Family History Family History Father Myocardial infarction Hypertension Diabetes CVD (cardiovascular disease) Mother Restless leg syndrome Diabetes Paternal Aunt Breast cancer Uterine cancer Social History Social History Patient Tobacco Use Status: Former Tobacco user Years Smoked: 36 Advance Directives: No Advance Directives Information Provided: No Physical Exam Vital Signs: Vital Signs: Last Vital Signs Temp 98.6 F 03/27/21 00:34 Pulse 61 03/27/21 03:46 Resp 16 03/27/21 03:46 BP 166/62 H 03/27/21 03:46 Pulse Ox 98 03/27/21 03:46 Body Mass Index 33.4 VITAL SIGNS: Reviewed. GENERAL: Well developed, well nourished, in no acute distress. HEAD: Normocephalic/atraumatic EYES: PERRLA, EOMI OROPHARYNX: no oral lesions noted, posterior pharynx clear LUNGS: Normal breath sounds. No adventitious sounds or accessory muscle use. SpO2<97> CARDIOVASCULAR: Regular rate and rhythm without noted murmurs, no JVD or lower extremity edema, symmetrical radial ABDOMEN: Soft, small mass possible hernia at incision on abdomen, non-distended with bowel sounds. SKIN: Inspection of the skin reveals no rashes NEUROLOGIC: Alert and oriented x 4. Strength and sensation to light touch were grossly intact x 4. Course Course Course Narrative: 55-year-old female with history and clinical presentation concerning for possible incarcerated hernia and patient currently feeling better than prior to EMS arrival and transportation. Review of all investigations without acute findings other than an elevated TSH level which was communicated with the patient. She was recommended to follow up with the primary care provider for adjustment of her Synthroid. Otherwise, no specific etiology was identified for patient's presenting symptoms to was encouraged once again to follow-up with her primary care provider. MDM - Arrhythmia/Palpitations Lab Data Result diagrams: 03/27/21 00:46 03/27/21 00:46 Labs: Lab Results 03/27/21 03/27/21 03/27/21 Range/Units 00:46 00:46 00:46 WBC 7.2 (4.8-10.8) X10*3/uL RBC 4.71 (4.20-5.50) X10*6/uL Hgb 14.0 (12.0-16.0) g/dl Hct 41.8 (37-47) % MCV 88.7 (80-98) fL MCH 29.7 (27.0-33.0) pg MCHC 33.5 (31.0-35.0) g/dl RDW 15.5 (11.0-16.0) % Plt Count 275 (160-400) X10*3/uL MPV 9.6 (9.4-12.3) fL Immature Gran % (Auto) 0.1 (0.0-0.4) % Neut % (Auto) 46.9 (45-73) % Lymph % (Auto) 42.1 H (20-40) % [place] % (Auto) 6.8 (2-11) % Eos % (Auto) 3.5 (0-4) % Baso % (Auto) 0.6 (0-2) % Lymph # (Auto) 3.0 (1.2-4.9) X10*3/uL [place] # (Auto) 0.5 (0.1-1.2) X10*3/uL Eos # (Auto) 0.3 (0.0-0.4) X10*3/uL Baso # (Auto) 0.0 (0.0-0.2) X10*3/uL Abs Immat Gran (auto) 0.01 (0.00-0.03) X10*3/uL Absolute Neuts (auto) 3.4 (2.0-8.3) X10*3/uL Absolute Nucleated RBC 0.000 (0.0-0.012) X10*3/uL Nucleated RBC % (auto) 0.0 (0.0-0.2) /100WBC Sodium 141 (135-145) mmol/L Potassium 4.0 (3.3-5.1) mmol/L Chloride 105 (96-108) mmol/L Carbon Dioxide 28 (22-29) mmol/L Anion Gap 12 (12-20) BUN 14 (9-16) mg/dL Creatinine 0.87 (0.5-1.4) mg/dL Estim Creat Clear Calc 90.2 Estimated GFR > 60 Random Glucose 146 H (60-115) mg/dL Calcium 10.0 (8.4-10.2) mg/dL Troponin I High Sens < 3.5 (<3.5-17.0) ng/L Lipase 72 (8-78) U/L TSH 28.86 H (0.32-4.0) uIU/mL Ethyl Alcohol mg/dL 03/27/21 Range/Units 00:46 WBC (4.8-10.8) X10*3/uL RBC (4.20-5.50) X10*6/uL Hgb (12.0-16.0) g/dl Hct (37-47) % MCV (80-98) fL MCH (27.0-33.0) pg MCHC (31.0-35.0) g/dl RDW (11.0-16.0) % Plt Count (160-400) X10*3/uL MPV (9.4-12.3) fL Immature Gran % (Auto) (0.0-0.4) % Neut % (Auto) (45-73) % Lymph % (Auto) (20-40) % [place] % (Auto) (2-11) % Eos % (Auto) (0-4) % Baso % (Auto) (0-2) % Lymph # (Auto) (1.2-4.9) X10*3/uL [place] # (Auto) (0.1-1.2) X10*3/uL Eos # (Auto) (0.0-0.4) X10*3/uL Baso # (Auto) (0.0-0.2) X10*3/uL Abs Immat Gran (auto) (0.00-0.03) X10*3/uL Absolute Neuts (auto) (2.0-8.3) X10*3/uL Absolute Nucleated RBC (0.0-0.012) X10*3/uL Nucleated RBC % (auto) (0.0-0.2) /100WBC Sodium (135-145) mmol/L Potassium (3.3-5.1) mmol/L Chloride (96-108) mmol/L Carbon Dioxide (22-29) mmol/L Anion Gap (12-20) BUN (9-16) mg/dL Creatinine (0.5-1.4) mg/dL Estim Creat Clear Calc Estimated GFR Random Glucose (60-115) mg/dL Calcium (8.4-10.2) mg/dL Troponin I High Sens (<3.5-17.0) ng/L Lipase (8-78) U/L TSH (0.32-4.0) uIU/mL Ethyl Alcohol < 10 mg/dL Discharge Plan Discharge Clinical Impression: Palpitations, Hypothyroidism Patient Disposition: Home, Self-Care Instructions: Heart Palpitations (ED) Additional Instructions: 1. Resume all home medications as prescribed. 2. Please follow-up with your primary care provider to did discuss adjustment of your levo thyroxine as well as possible Gastroenterology referral for stomach fullness. Return to the ER for acute worsening of your symptoms. Prescriptions: No Action (DME) FreeStyle Test Strip See Rx Instructions .ROUTE .MEDSUPPLY Qty: 50 RF: 6 (DME) lancets [FreeStyle Lancets] 28 gauge misc See Rx Instructions .ROUTE .MEDSUPPLY Qty: 50 RF: 6 blood-glucose meter [FreeStyle Lite Meter] Kit 1 ea miscellaneous .Once a day 30 Days Qty: 1 RF: 0 hydroxychloroquine 200 mg tablet 200 mg PO DAILY Qty: 90 RF: 0 levothyroxine 112 mcg tablet 112 mcg PO DAILY 30 Days Qty: 30 RF: 3 escitalopram oxalate [Lexapro] 20 mg tablet 20 mg PO DAILY RF: 0 Anoro Ellipta 62.5-25 mcg/actuation blister with device 1 inh inhalation DAILY 30 Days Qty: 60 RF: 11 Nicotrol 10 mg cartridge 0 inh inhalation RF: 0 alprazolam 1 mg tablet 1 mg PO BID PRN (Reason: anxiety) RF: 0 vitamin B complex-folic acid 0.4 mg tablet 1 tab PO DAILY RF: 0 sumatriptan 20 mg/actuation spray,non-aerosol 20 mg intranasal DAILY PRNRF: 0 albuterol sulfate 90 mcg/actuation HFA aerosol inhaler 2 puff inhalation Q4-6H PRNRF: 0 albuterol sulfate 2.5 mg /3 mL (0.083 %) solution for nebulization 2.5 mg inhalation QID PRNRF: 0 omeprazole 20 mg capsule,delayed release(DR/EC) 20 mg PO BID RF: 0 ropinirole 1 mg tablet 3 mg PO BID RF: 0 ondansetron HCl 4 mg tablet 4 mg PO TID PRN (Reason: anxiety) RF: 0 Flovent HFA 220 mcg/actuation HFA aerosol inhaler 1 puff inhalation BID 30 Days Qty: 12 RF: 11 metformin 500 mg tablet extended release 24hr 500 mg PO DAILY 30 Days Qty: 30 RF: 4 tizanidine 2 mg tablet 2 mg PO Q8H PRN (Reason: muscle spasm) RF: 0 nabumetone 750 mg tablet 750 mg PO BID RF: 0 fluticasone propionate 50 mcg/actuation spray,suspension intranasal RF: 0 vitamin B complex Tablet 1 tab PO DAILY RF: 0 meloxicam 15 mg tablet 15 mg PO DAILY RF: 0 Referrals: Physician,Unknown [Primary Care Provider] - 2 days
[2021-03-27 02:32] LABS: Ethanol < 10 mg/dL
[2021-03-27 02:34] LABS: Lipase 72 U/L (8-78)
[2021-03-27] MEDS: iohexoL 350 MG/ML 100 ML INFUS..BTL 85 ML IV (03:04)
[2021-03-27 03:46] VITALS: BP 166/62; PULSE 61; RESP 16; O2SAT 98
== END 2021-03-27 04:58 | disposition home or self-care (01) ==
PROVIDERS: Emergency Provider Student in an Organized Health Care Education/Training Program
DX: R00.2 Palpitations (principal); E03.9 Hypothyroidism, unspecified; E11.9 Type 2 diabetes mellitus without complications; G47.33 Obstructive sleep apnea (adult) (pediatric); Z79.899 Other long term (current) drug therapy; Z87.891 Personal history of nicotine dependence
CPT/HCPCS: 36415; 71045; 74177; 80048; 82077; 83690; 84443; 84484; 85025; 93005; 96365; 96375; 99284; Q9967

== ENCOUNTER 2021-04-13 09:04 | Outpatient (REF) | payer OTHER, SELFPAY ==
--- NOTE | ~2021-04-13 | CT_ITS ---
EXAMINATION: CT CHEST WITHOUT CONTRAST CLINICAL INFORMATION: Follow-up pulmonary nodules COMPARISON: Previous chest CT scan most recent April 2020 TECHNIQUE: Multidetector volumetric CT imaging of the chest was done. Axial MIP volume rendering provided. Sagittal and coronal reformatted images were obtained. This CT examination was performed using dose optimization techniques as appropriate, variously including the following: *Automated exposure control *Adjustment of mA and/or kV according to patient size (this includes techniques or standardized protocols for targeted exams where dose is matched to indication/reason for exam; i.e. extremities or head) *Use of iterative reconstruction technique DLP: 171 mGy-cm FINDINGS: LUNGS: There is a new peripheral or subpleural slightly semisolid right lower lobe nodule axial image 404 series 4 measuring 4 mm. On sagittal and coronal reconstructed images this appears linear and may represent an area of scarring or atelectasis. There is new or increasing scarring or subsegmental atelectasis seen in the posterior medial costophrenic sulcus of the right lower lobe adjacent to a small diaphragmatic hernia axial image 4 series 4, coronal reconstructed image 3 and sagittal reconstructed image 85. Pulmonary nodules are otherwise stable. Largest pulmonary nodule is a 4 x 7 mm peripheral or subpleural right lower lobe nodule adjacent axial image there is evidence of mild paraseptal emphysema. No endobronchial or endotracheal lesion is seen. MEDIASTINUM: The mediastinum is normal. PLEURA: There is no pleural effusion. No pleural mass or thickening. AXILLA: No lymphadenopathy. UPPER ABDOMEN: The gallbladder has been removed. OSSEOUS STRUCTURES: Unremarkable. CT/CT chest wo con IMPRESSION: Small right posterior medial diaphragmatic hernia containing fat and increasing atelectasis or scarring in the adjacent right lower lobe. New 4 mm semisolid peripheral or subpleural right lower lobe nodule slightly more superiorly. On sagittal and coronal constructed images this appears linear and may represent scarring or subsegmental atelectasis as well. Otherwise small pulmonary nodules are stable.
== END 2021-04-13 09:05 | disposition home or self-care (01) ==
LOC: HO.CT 09:04
PROVIDERS: Visit Provider Hospitalist
DX: R91.8 Other nonspecific abnormal finding of lung field (principal)
CPT/HCPCS: 71250

== ENCOUNTER → 2021-04-18 12:41 | Outpatient (BNVA) | payer OTHER, SELFPAY | PROVIDERS: PCP Internal Medicine; Referring Provider Internal Medicine; Visit Provider Internal Medicine Cardiovascular Disease | DX: R00.2 Palpitations (principal) | CPT/HCPCS: 99212 ==

== ENCOUNTER 2021-04-28 09:15 | Outpatient (REF) | payer OTHER, SELFPAY ==
[2021-04-28 10:47] LABS: Free T4 (Free Thyroxine) 1.26 ng/dL (0.71-1.85); Thyroid Stimulating Hormone 5.94 uIU/mL (0.32-4.0)
== END 2021-04-28 09:16 | disposition home or self-care (01) ==
LOC: HO.LAB 09:15
PROVIDERS: PCP Internal Medicine; Visit Provider Internal Medicine
DX: G47.33 Obstructive sleep apnea (adult) (pediatric) (principal); R91.8 Other nonspecific abnormal finding of lung field; J44.9 Chronic obstructive pulmonary disease, unspecified; E03.8 Other specified hypothyroidism; E06.3 Autoimmune thyroiditis; F17.200 Nicotine dependence, unspecified, uncomplicated; Z71.6 Tobacco abuse counseling
CPT/HCPCS: 36415; 84439; 84443; 99212

== ENCOUNTER → 2021-05-02 09:29 | Outpatient (BNVA) | payer OTHER, SELFPAY | PROVIDERS: PCP Internal Medicine; Visit Provider Internal Medicine ==

== ENCOUNTER → 2021-05-18 08:19 | Outpatient (BNVA) | payer OTHER, SELFPAY | PROVIDERS: PCP Internal Medicine; Visit Provider Internal Medicine | DX: E03.9 Hypothyroidism, unspecified (principal); Z79.899 Other long term (current) drug therapy | CPT/HCPCS: Q3014 ==

== ENCOUNTER 2021-06-12 12:19 | Emergency (ER) | payer OTHER, SELFPAY ==
[2021-06-12 12:24] VITALS: BP 200/100; PULSE 74; O2SAT 98; BMI 34.2
--- NOTE | 2021-06-12 12:26 | ED_ITS ---
HPI - Abdominal Pain General Chief Complaint: Abdominal Pain Stated Complaint: abd pain Time Seen by Provider: 06/12/21 12:26 Source: patient Mode of arrival: EMS Limitations: no limitations History of Present Illness HPI narrative: 55-year-old female presents for 2 days of left flank pain that radiates to her left abdomen. Pain is intermittent. She has had left abdomen pain before, but today is that it is much worse when she bends down or lifts something heavy. States it feels like kidney stone which she has had in the past. She is nauseous. She has had diarrhea for the past 3 days. No vomiting. No dark, tarry, or bloody stools. No fevers. She is postmenopausal. She is vaccinated for COVID. She feels nauseous when she eats. The pain is worse after she eats. No chest pain, no shortness of breath, no cough, no fever. She is newly diagnosed with abdominal hernias, she reports umbilical and hiatal. Sees Dr. Morse, surgeon at [facility]. She is waiting for an appointment to obtain surgery for her hernias. She has had cholecystectomy and bowel resection for diverticulitis MD elicited complaint: abdominal pain and flank pain Pertinent past history: kidney stones and other (abd hernias) Onset (ago): day(s) (2) Pain Consistency: intermittent Location: LUQ, LLQ and L flank Severity: severe Pain scale (0-10): 10 Quality: stabbing and sharp Radiation: LUQ and LLQ Exacerbating factors: eating Relieving factors: rest Context: history of similar episodes Associated symptoms: nausea and diarrhea Related Data Hx Last Menstrual Period: post menopausal Home Medications Medication Instructions Recorded Confirmed albuterol sulfate 2.5 mg INHALATION QID PRN 04/10/20 05/18/21 albuterol sulfate 90 mcg/actuation 2 puff INHALATION Q4-6H PRN 04/10/20 05/18/21 aerosol inhaler alprazolam 1 mg tablet 1 mg PO BID PRN 04/10/20 05/18/21 nicotine 10 mg inhalation cartridge 0 inh INHALATION 04/10/20 05/18/21 omeprazole 20 mg capsule,delayed 20 mg PO BID 04/10/20 05/18/21 release sumatriptan 20 mg/actuation nasal 20 mg INTRANASAL DAILY PRN 04/10/20 05/18/21 spray vitamin B complex-folic acid 0.4 1 tab PO DAILY 04/10/20 05/18/21 mg tablet escitalopram oxalate 20 mg tablet 20 mg PO DAILY 04/19/20 05/18/21 (Lexapro) ropinirole 1 mg tablet 3 mg PO BID tab 10/20/20 05/18/21 ondansetron HCl 4 mg tablet 4 mg PO TID PRN 12/31/20 05/18/21 fluticasone propionate 50 spray INTRANASAL 01/20/21 05/18/21 mcg/actuation nasal spray,suspension meloxicam 15 mg tablet 15 mg PO DAILY 01/20/21 05/18/21 nabumetone 750 mg tablet 750 mg PO BID 01/20/21 05/18/21 tizanidine 2 mg tablet 2 mg PO Q8H PRN 01/20/21 05/18/21 vitamin B complex 1 tab PO DAILY 01/20/21 05/18/21 trazodone 50 mg tablet 50 - 150 mg PO BEDTIME PRN 04/28/21 05/18/21 Previous Rx's Medication Instructions Recorded fluticasone propionate 220 1 puff INHALATION BID 30 Days #12 g 09/22/20 mcg/actuation HFA aerosol inhaler (Flovent HFA) blood sugar diagnostic (FreeStyle #50 ea 11/16/20 Test) lancets 28 gauge (FreeStyle #50 ea 11/16/20 Lancets) blood-glucose meter (FreeStyle 1 ea MISCELLANEOUS .Once a day 30 12/14/20 Lite Meter) Days #1 ea metformin 500 mg tablet,extended 500 mg PO DAILY 30 Days #30 tab 12/31/20 release 24hr hydroxychloroquine 200 mg tablet 200 mg PO DAILY #90 tab 01/20/21 umeclidinium 62.5 mcg-vilanterol 1 ea PO DAILY #60 ea 04/13/21 25 mcg/actuation powdr for inhalation (Anoro Ellipta) levothyroxine 137 mcg tablet 137 mcg PO DAILY 30 Days #30 tab 05/18/21 Allergies Allergy/AdvReac Type Severity Reaction Status Date / Time adhesive tape Allergy Severe BLISTERS Verified 05/18/21 08:37 Tetanus Vaccines and Toxoid Allergy Intermediate SWELLING, Verified 05/18/21 08:37 [TETANUS VACCINES & TOXOID] REDNESS surgical tape Allergy Severe hives/boils Uncoded 05/18/21 08:37 Review of Systems Constitutional: Denies body ache(s), Denies chills, Denies fatigue, Denies fever(s), Denies headache(s), Denies malaise and Denies weakness Eyes: Denies diplopia Denies vertigo, Denies dizziness, Denies otalgia, Denies headache(s), Denies mouth pain, Denies post nasal drip, Denies sinus pain, Denies sinus pressure, Denies sore throat and Denies throat swelling Cardiovascular: Denies chest pain, Denies syncope, Denies leg edema, Denies lightheadedness, Denies Loss of Consciousness, Denies palpitations and Denies dyspnea Respiratory: Denies chest congestion, Denies cough and Denies dyspnea Gastrointestinal: Reports abdominal pain, Reports bloating, Denies hematochezia, Denies coffee ground emesis, Denies constipation, Denies fecal incontinence, Reports diarrhea, Reports nausea, Denies vomiting and Denies hematemesis Genitourinary: Denies hematuria, Denies dysuria, Denies pelvic pain, Reports flank pain (left), Denies urinary incontinence, Denies urinary hesitancy and Denies urinary urgency Skin/Breast: Denies rash Denies confusion, Denies vertigo, Denies dizziness, Denies syncope, Denies headache(s) and Denies weakness Psychiatric: Denies anxiety, Denies confusion and Denies depression Endocrine: Denies fatigue and Denies palpitations Allergic/Immunologic: Denies throat swelling Physical Exam Vital Signs: Vital Signs: Last Vital Signs Temp 98.3 F 06/12/21 12:28 Pulse 63 06/12/21 12:28 BP 180/74 H 06/12/21 12:28 Pulse Ox 99 06/12/21 12:28 Body Mass Index 34.2 Const: General: alert, awake and acute distress (d/t pain) moderate; No confusion Nutritional Appearance: obese morbidly obese Orientation/consciousness: patient oriented x3 and No confusion Limitations: no limitations HENMT: Head: Yes normal to inspection, Yes normocephalic and Yes atraumatic Ears: hearing grossly normal bilaterally, external ears normal, TM's normal bilaterally and EAC's normal General nose exam: Normal external nose present Face and sinus: Yes normal facial exam and Yes sinuses nontender Mouth: Normal oral and palatal mucosa present Throat: Yes posterior oropharynx normal Eyes: Conjunctivae: conjunctivae normal Pupils: Equal, round and reactive pupils present EOM: EOMs intact bilaterally Neck: Neck: Yes full ROM, Yes no lymphadenopathy and Yes supple Resp: Effort & Inspection: normal respiratory effort and able to speak in complete sentences Auscultation: clear to auscultation bilaterally, no c rackles, no rales, no rhonchi and no wheezes Cardio: Rate: regular rate Rhythm: regular rhythm Heart sounds: S1 normal heart sound present and S2 normal heart sound present GI: Inspection: Yes Abdominal panniculus present and Yes obesity Palpation (GI): Soft to palpation, Tenderness to palpation present (GI) in the RUQ, Guarding due to palpation present (GI) in the RUQ and not rigid Percussion: Yes normal to percussion Auscultation: normal bowel sounds : General: Yes CVA tenderness on the left Back/Spine/Pelvis: Back: CVA tenderness Skin: General skin exam: no rashes or lesions noted Neuro: General: patient oriented x3 and No confusion Cranial nerves: Yes Equal, round and reactive pupils present Extrem: General: Yes normal to inspection and Yes full ROM Psych: Appearance: grossly normal Affect: normal affect Attitude: cooperative Thought process: Normal thought process present Course Course Course Narrative: 55-year-old female the radiates to her left type abdomen and lower abdomen. On exam, patient is in, is moaning. She has left CVA tenderness. Patient is not tender on her upper left or lower left abdomen, abdomen is soft with normal bowel sounds, patient has right upper quadrant pain and tenderness. Patient was only tender in her right upper quadrant during my palpation. Pt has had a cholecystectomy. Will get labs,, CT abdomen pelvis. Reevaluation(s) Reevaluation #1: RN tells me that patient became tearful and agitated because she was in a bed in the hallway and another patient was on BiPAP which reminded her of her mother. Patient eloped before further workup could be done Discharge Plan Discharge Clinical Impression: Acute left flank pain Patient Disposition: Elopement Prescriptions: No Action (DME) FreeStyle Test Strip See Rx Instructions .ROUTE .MEDSUPPLY Qty: 50 RF: 6 (DME) lancets [FreeStyle Lancets] 28 gauge misc See Rx Instructions .ROUTE .MEDSUPPLY Qty: 50 RF: 6 blood-glucose meter [FreeStyle Lite Meter] Kit 1 ea miscellaneous .Once a day 30 Days Qty: 1 RF: 0 hydroxychloroquine 200 mg tablet 200 mg PO DAILY Qty: 90 RF: 0 Anoro Ellipta 62.5-25 mcg/actuation blister with device 1 ea PO DAILY Qty: 60 RF: 3 escitalopram oxalate [Lexapro] 20 mg tablet 20 mg PO DAILY RF: 0 Nicotrol 10 mg cartridge 0 inh inhalation RF: 0 alprazolam 1 mg tablet 1 mg PO BID PRN (Reason: anxiety) RF: 0 vitamin B complex-folic acid 0.4 mg tablet 1 tab PO DAILY RF: 0 sumatriptan 20 mg/actuation spray,non-aerosol 20 mg intranasal DAILY PRNRF: 0 albuterol sulfate 90 mcg/actuation HFA aerosol inhaler 2 puff inhalation Q4-6H PRNRF: 0 albuterol sulfate 2.5 mg /3 mL (0.083 %) solution for nebulization 2.5 mg inhalation QID PRNRF: 0 omeprazole 20 mg capsule,delayed release(DR/EC) 20 mg PO BID RF: 0 ropinirole 1 mg tablet 3 mg PO BID RF: 0 ondansetron HCl 4 mg tablet 4 mg PO TID PRN (Reason: anxiety) RF: 0 Flovent HFA 220 mcg/actuation HFA aerosol inhaler 1 puff inhalation BID 30 Days Qty: 12 RF: 11 metformin 500 mg tablet extended release 24hr 500 mg PO DAILY 30 Days Qty: 30 RF: 4 trazodone 50 mg tablet 50 - 150 mg PO BEDTIME PRNRF: 0 tizanidine 2 mg tablet 2 mg PO Q8H PRN (Reason: muscle spasm) RF: 0 nabumetone 750 mg tablet 750 mg PO BID RF: 0 fluticasone propionate 50 mcg/actuation spray,suspension intranasal RF: 0 vitamin B complex Tablet 1 tab PO DAILY RF: 0 meloxicam 15 mg tablet 15 mg PO DAILY RF: 0 levothyroxine 137 mcg tablet 137 mcg PO DAILY 30 Days Qty: 30 RF: 4 PMFSH Past Medical History Medical History Asthma-COPD overlap syndrome Hypertension Hypothyroidism Obesity (BMI 30-39.9) BOY (obstructive sleep apnea) Palpitations Prediabetes Pulmonary nodules Tobacco dependence Type 2 diabetes mellitus Surgical History H/O arthroscopy of right knee H/O excision of ganglion cyst H/O hand surgery H/O release of tendon H/O wrist surgery History of colon resection History of esophagogastroduodenoscopy (EGD) Hx of cholecystectomy Hx of colonoscopy Hx of lithotripsy Status post tendon repair Status post trigger finger release Hx Last Menstrual Period: post menopausal Family History Family History Father Myocardial infarction Hypertension Diabetes CVD (cardiovascular disease) Mother Restless leg syndrome Diabetes Paternal Aunt Breast cancer Uterine cancer Social History Social History Alcohol intake: never Patient Tobacco Use Status: Current everyday Tobacco user Years Smoked: 36 Use of substances other than those prescribed or required for medical reasons: No Advance Directives: No Advance Directives Information Provided: No
[2021-06-12 12:28] VITALS: BP 180/74; PULSE 63; TEMP 36.8; O2SAT 99
--- NOTE | 2021-06-12 13:44 | PC.NURSE ---
pt requested to have her bed moved as she is outside the room of a pt who is on biPap and it is giving her PTSD as her mom of COPD. pt tearful. explained there is limited space, will re-evaluate after IV and blood work completed. IV not completed as pt a difficult stick, pt not at bedside when t/w returned to explain that another RN will look for an IV with an u/s.
--- NOTE | 2021-06-12 13:58 | PC.NURSE ---
Pt not in bed, NICHO Murphy made aware
== END 2021-06-12 14:20 | disposition left against medical advice (07) ==
PROVIDERS: Emergency Provider Emergency Medicine; PCP Internal Medicine
DX: R10.9 Unspecified abdominal pain (principal); Z87.442 Personal history of urinary calculi; E11.9 Type 2 diabetes mellitus without complications; I10 Essential (primary) hypertension; F17.200 Nicotine dependence, unspecified, uncomplicated
CPT/HCPCS: 99284

== ENCOUNTER 2021-07-17 11:37 | Emergency (ER) | payer OTHER, SELFPAY ==
[2021-07-17 12:52] VITALS: BP 149/64; PULSE 68; RESP 18; TEMP 36; O2SAT 97; BMI 34.9
[2021-07-17 14:14] VITALS: BP 95/76; PULSE 70; RESP 16; TEMP 35.2; O2SAT 98
--- NOTE | 2021-07-17 14:38 | ED.SKABFB ---
HPI - Skin/Abscess/Foreign Bdy General Chief complaint: Skin/Abscess/Foreign Body Stated complaint: cyst on back Time Seen by Provider: 07/17/21 14:38 History of Present Illness HPI narrative: Patient complains of lump on back that has become increasingly painful over past several days Related Data Home Medications Medication Instructions Recorded Confirmed albuterol sulfate 2.5 mg INHALATION QID PRN 04/10/20 05/18/21 albuterol sulfate 90 mcg/actuation 2 puff INHALATION Q4-6H PRN 04/10/20 05/18/21 aerosol inhaler alprazolam 1 mg tablet 1 mg PO BID PRN 04/10/20 05/18/21 nicotine 10 mg inhalation cartridge 0 inh INHALATION 04/10/20 05/18/21 omeprazole 20 mg capsule,delayed 20 mg PO BID 04/10/20 05/18/21 release sumatriptan 20 mg/actuation nasal 20 mg INTRANASAL DAILY PRN 04/10/20 05/18/21 spray vitamin B complex-folic acid 0.4 1 tab PO DAILY 04/10/20 05/18/21 mg tablet escitalopram oxalate 20 mg tablet 20 mg PO DAILY 04/19/20 05/18/21 (Lexapro) ropinirole 1 mg tablet 3 mg PO BID tab 10/20/20 05/18/21 ondansetron HCl 4 mg tablet 4 mg PO TID PRN 12/31/20 05/18/21 fluticasone propionate 50 spray INTRANASAL 01/20/21 05/18/21 mcg/actuation nasal spray,suspension meloxicam 15 mg tablet 15 mg PO DAILY 01/20/21 05/18/21 nabumetone 750 mg tablet 750 mg PO BID 01/20/21 05/18/21 tizanidine 2 mg tablet 2 mg PO Q8H PRN 01/20/21 05/18/21 vitamin B complex 1 tab PO DAILY 01/20/21 05/18/21 trazodone 50 mg tablet 50 - 150 mg PO BEDTIME PRN 04/28/21 05/18/21 Previous Rx's Medication Instructions Recorded fluticasone propionate 220 1 puff INHALATION BID 30 Days #12 g 09/22/20 mcg/actuation HFA aerosol inhaler (Flovent HFA) blood sugar diagnostic (FreeStyle #50 ea 11/16/20 Test) lancets 28 gauge (FreeStyle #50 ea 11/16/20 Lancets) blood-glucose meter (FreeStyle 1 ea MISCELLANEOUS .Once a day 30 12/14/20 Lite Meter) Days #1 ea metformin 500 mg tablet,extended 500 mg PO DAILY 30 Days #30 tab 12/31/20 release 24hr hydroxychloroquine 200 mg tablet 200 mg PO DAILY #90 tab 01/20/21 umeclidinium 62.5 mcg-vilanterol 1 ea PO DAILY #60 ea 04/13/21 25 mcg/actuation powdr for inhalation (Anoro Ellipta) levothyroxine 137 mcg tablet 137 mcg PO DAILY 30 Days #30 tab 05/18/21 doxycycline hyclate 100 mg capsule 100 mg PO BID 7 Days #14 cap 07/17/21 ibuprofen 600 mg tablet 600 mg PO Q6H PRN #14 tab 07/17/21 oxycodone 5 mg tablet 5 mg PO Q6H PRN #10 tab 07/17/21 Allergies Allergy/AdvReac Type Severity Reaction Status Date / Time adhesive tape Allergy Severe BLISTERS Verified 05/18/21 08:37 Tetanus Vaccines and Toxoid Allergy Intermediate SWELLING, Verified 05/18/21 08:37 [TETANUS VACCINES & TOXOID] REDNESS surgical tape Allergy Severe hives/boils Uncoded 05/18/21 08:37 Review of Systems Review of Systems: Positive for painful lump on back Negative no fever no chills no abdominal pain no other back pain no changes to bowel or bladder no numbness weakness or tingling Yes all other systems are reviewed and are negative PMFSH Past Medical History Source: nursing notes reviewed Medical History Asthma-COPD overlap syndrome Hypertension Hypothyroidism Obesity (BMI 30-39.9) BOY (obstructive sleep apnea) Palpitations Prediabetes Pulmonary nodules Tobacco dependence Type 2 diabetes mellitus Surgical History H/O arthroscopy of right knee H/O excision of ganglion cyst H/O hand surgery H/O release of tendon H/O wrist surgery History of colon resection History of esophagogastroduodenoscopy (EGD) Hx of cholecystectomy Hx of colonoscopy Hx of lithotripsy Status post tendon repair Status post trigger finger release Family History Family History Father Myocardial infarction Hypertension Diabetes CVD (cardiovascular disease) Mother Restless leg syndrome Diabetes Paternal Aunt Breast cancer Uterine cancer Social History Social History Alcohol intake: never Patient Tobacco Use Status: Current everyday Tobacco user Years Smoked: 36 Advance Directives: No Advance Directives Information Provided: No Patient : No Physical Exam Vital Signs: Vital Signs: Last Vital Signs Temp 95.3 F L 07/17/21 14:14 Pulse 70 07/17/21 14:14 Resp 16 07/17/21 14:14 BP 95/76 07/17/21 14:14 Pulse Ox 98 07/17/21 14:14 BMI result Body Mass Index 34.9 General appearance no distress Head is normocephalic atraumatic neck is supple Respiratory no distress Extremities full range of motion x4 The back in the central mid back there is of fluctuant tender area that is not red or warm with no discharge no surrounding erythema Back otherwise has full range of motion with no other tenderness Neurovascular intact distal, motor and say bright are symmetric and intact Course Course Course Narrative: Procedure note for back abscess Anesthesia is 6 cc of 1% lidocaine Wound cleaned with Betadine A small incision is made with discharge of copious pus and thick itch easy whitish material as well Packing was placed and dressing is applied Discharge Plan Discharge Clinical Impression: Infected sebaceous cyst of skin Patient Disposition: Home, Self-Care Additional Instructions: The cyst on her back had become infected so when I drained it there was lots of thick white cystic material as well as copious pus Packing was placed and needs to be removed in 2 days You can return to the ER in 2 days for packing removal wound check Return any time for fever, worse pain and swelling, spreading redness any sign of infection or worsening infection You can follow routinely with surgeon to see if any other procedures needed for complete cyst removal Prescriptions: New doxycycline hyclate 100 mg capsule 100 mg PO BID 7 Days Qty: 14 RF: 0 ibuprofen 600 mg tablet 600 mg PO Q6H PRN (Reason: pain) Qty: 14 RF: 0 oxycodone 5 mg tablet 5 mg PO Q6H PRN (Reason: pain) Qty: 10 RF: 0 No Action (DME) FreeStyle Test Strip See Rx Instructions .ROUTE .MEDSUPPLY Qty: 50 RF: 6 (DME) lancets [FreeStyle Lancets] 28 gauge misc See Rx Instructions .ROUTE .MEDSUPPLY Qty: 50 RF: 6 blood-glucose meter [FreeStyle Lite Meter] Kit 1 ea miscellaneous .Once a day 30 Days Qty: 1 RF: 0 hydroxychloroquine 200 mg tablet 200 mg PO DAILY Qty: 90 RF: 0 Anoro Ellipta 62.5-25 mcg/actuation blister with device 1 ea PO DAILY Qty: 60 RF: 3 escitalopram oxalate [Lexapro] 20 mg tablet 20 mg PO DAILY RF: 0 Nicotrol 10 mg cartridge 0 inh inhalation RF: 0 alprazolam 1 mg tablet 1 mg PO BID PRN (Reason: anxiety) RF: 0 vitamin B complex-folic acid 0.4 mg tablet 1 tab PO DAILY RF: 0 sumatriptan 20 mg/actuation spray,non-aerosol 20 mg intranasal DAILY PRNRF: 0 albuterol sulfate 90 mcg/actuation HFA aerosol inhaler 2 puff inhalation Q4-6H PRNRF: 0 albuterol sulfate 2.5 mg /3 mL (0.083 %) solution for nebulization 2.5 mg inhalation QID PRNRF: 0 omeprazole 20 mg capsule,delayed release(DR/EC) 20 mg PO BID RF: 0 ropinirole 1 mg tablet 3 mg PO BID RF: 0 ondansetron HCl 4 mg tablet 4 mg PO TID PRN (Reason: anxiety) RF: 0 Flovent HFA 220 mcg/actuation HFA aerosol inhaler 1 puff inhalation BID 30 Days Qty: 12 RF: 11 metformin 500 mg tablet extended release 24hr 500 mg PO DAILY 30 Days Qty: 30 RF: 4 trazodone 50 mg tablet 50 - 150 mg PO BEDTIME PRNRF: 0 tizanidine 2 mg tablet 2 mg PO Q8H PRN (Reason: muscle spasm) RF: 0 nabumetone 750 mg tablet 750 mg PO BID RF: 0 fluticasone propionate 50 mcg/actuation spray,suspension intranasal RF: 0 vitamin B complex Tablet 1 tab PO DAILY RF: 0 meloxicam 15 mg tablet 15 mg PO DAILY RF: 0 levothyroxine 137 mcg tablet 137 mcg PO DAILY 30 Days Qty: 30 RF: 4 Referrals: Vernon Parsons MD [Physician] - 10 days (Infected sebaceous cyst drained but cyst cavity remains) Stand Alone Forms: Work/School Release
== END 2021-07-17 15:15 | disposition home or self-care (01) ==
PROVIDERS: Emergency Provider Emergency Medicine; PCP Internal Medicine
DX: L02.212 Cutaneous abscess of back [any part, except buttock and flank] (principal); L72.3 Sebaceous cyst; I10 Essential (primary) hypertension; E11.9 Type 2 diabetes mellitus without complications
CPT/HCPCS: 10060; 99284

== ENCOUNTER 2021-07-19 10:11 | Emergency (ER) | payer OTHER, SELFPAY ==
[2021-07-19 11:09] VITALS: BP 149/78; PULSE 71; RESP 18; TEMP 36.3; O2SAT 98; BMI 37.1
--- NOTE | 2021-07-19 11:23 | ED.SKABFB ---
HPI - Skin/Abscess/Foreign Bdy General Chief complaint: Skin/Abscess/Foreign Body Stated complaint: cyst packing removal Time Seen by Provider: 07/19/21 11:23 Source: patient Mode of arrival: ambulatory Limitations: no limitations History of Present Illness HPI narrative: 55-year-old female with abscess to her back that was incised and drained and packed approximately 3 days ago. States he has been very itchy since it was done states is coming in for packing removal. She denies fevers chills cough nausea vomiting or diarrhea. States he has an appointment to have this patient's cyst removed this week. MD complaint: abscess/boil Onset (ago): day(s) Tetanus up to date: yes Location: back Severity: mild Severity scale (1-10): 1 Quality: pruritic Pain Consistency: constant Related Data Home Medications Medication Instructions Recorded Confirmed albuterol sulfate 2.5 mg INHALATION QID PRN 04/10/20 05/18/21 albuterol sulfate 90 mcg/actuation 2 puff INHALATION Q4-6H PRN 04/10/20 05/18/21 aerosol inhaler alprazolam 1 mg tablet 1 mg PO BID PRN 04/10/20 05/18/21 nicotine 10 mg inhalation cartridge 0 inh INHALATION 04/10/20 05/18/21 omeprazole 20 mg capsule,delayed 20 mg PO BID 04/10/20 05/18/21 release sumatriptan 20 mg/actuation nasal 20 mg INTRANASAL DAILY PRN 04/10/20 05/18/21 spray vitamin B complex-folic acid 0.4 1 tab PO DAILY 04/10/20 05/18/21 mg tablet escitalopram oxalate 20 mg tablet 20 mg PO DAILY 04/19/20 05/18/21 (Lexapro) ropinirole 1 mg tablet 3 mg PO BID tab 10/20/20 05/18/21 ondansetron HCl 4 mg tablet 4 mg PO TID PRN 12/31/20 05/18/21 fluticasone propionate 50 spray INTRANASAL 01/20/21 05/18/21 mcg/actuation nasal spray,suspension meloxicam 15 mg tablet 15 mg PO DAILY 01/20/21 05/18/21 nabumetone 750 mg tablet 750 mg PO BID 01/20/21 05/18/21 tizanidine 2 mg tablet 2 mg PO Q8H PRN 01/20/21 05/18/21 vitamin B complex 1 tab PO DAILY 01/20/21 05/18/21 trazodone 50 mg tablet 50 - 150 mg PO BEDTIME PRN 04/28/21 05/18/21 Previous Rx's Medication Instructions Recorded fluticasone propionate 220 1 puff INHALATION BID 30 Days #12 g 09/22/20 mcg/actuation HFA aerosol inhaler (Flovent HFA) blood sugar diagnostic (FreeStyle #50 ea 11/16/20 Test) lancets 28 gauge (FreeStyle #50 ea 11/16/20 Lancets) blood-glucose meter (FreeStyle 1 ea MISCELLANEOUS .Once a day 12/14/20 Lite Meter) Days #1 ea metformin 500 mg tablet,extended 500 mg PO DAILY 30 Days #30 tab 12/31/20 release 24hr hydroxychloroquine 200 mg tablet 200 mg PO DAILY #90 tab 01/20/21 umeclidinium 62.5 mcg-vilanterol 1 ea PO DAILY #60 ea 04/13/21 25 mcg/actuation powdr for inhalation (Anoro Ellipta) levothyroxine 137 mcg tablet 137 mcg PO DAILY 30 Days #30 tab 05/18/21 doxycycline hyclate 100 mg capsule 100 mg PO BID 7 Days #14 cap 07/17/21 ibuprofen 600 mg tablet 600 mg PO Q6H PRN #14 tab 07/17/21 oxycodone 5 mg tablet 5 mg PO Q6H PRN #10 tab 07/17/21 Allergies Allergy/AdvReac Type Severity Reaction Status Date / Time adhesive tape Allergy Severe BLISTERS Verified 07/19/21 11:09 Tetanus Vaccines and Toxoid Allergy Intermediate SWELLING, Verified 07/19/21 11:09 [TETANUS VACCINES & TOXOID] REDNESS surgical tape Allergy Severe hives/boils Uncoded 05/18/21 08:37 Review of Systems Review of Systems: Review of systems: General: Patient denies any fever chills recent illness or falls Musculoskeletal: Denies back pain or body aches or other injuries HEENT: denies headache, runny nose, ear pain Respiratory: denies shortness of breath, cough Cardiovascular: no chest pain or palpitations : denies dysuria, frequency Abdomen: no nausea vomiting denies abdominal pain Extremities: no swelling, no pain Skin: no diaphoresis Yes all other systems are reviewed and are negative [facility] Past Medical History Medical History Asthma-COPD overlap syndrome Hypertension Hypothyroidism Obesity (BMI 30-39.9) BOY (obstructive sleep apnea) Palpitations Prediabetes Pulmonary nodules Tobacco dependence Type 2 diabetes mellitus Surgical History H/O arthroscopy of right knee H/O excision of ganglion cyst H/O hand surgery H/O release of tendon H/O wrist surgery History of colon resection History of esophagogastroduodenoscopy (EGD) Hx of cholecystectomy Hx of colonoscopy Hx of lithotripsy Status post tendon repair Status post trigger finger release Family History Family History Father Myocardial infarction Hypertension Diabetes CVD (cardiovascular disease) Mother Restless leg syndrome Diabetes Paternal Aunt Breast cancer Uterine cancer Social History Social History Alcohol intake: never Patient Tobacco Use Status: Current everyday Tobacco user Years Smoked: 36 Advance Directives: No Advance Directives Information Provided: No Physical Exam Vital Signs: Vital Signs: Last Vital Signs Temp 97.4 F 07/19/21 11:09 Pulse 71 07/19/21 11:09 Resp 18 07/19/21 11:09 BP 149/78 H 07/19/21 11:09 Pulse Ox 98 07/19/21 11:09 BMI result Body Mass Index 37.1 A focus exam was done to the back patient had dressing placed over the wound was able to remove the dressing and the packing came right out short space packing patient tolerated procedure well General: Well-appearing well-nourished in no signs of distress HEENT: Normocephalic atraumatic Neck: No signs of JVD, no masses no tenderness or lymphadenopathy Cardiovascular: Regular rate and rhythm Respiratory: Clear to auscultation bilaterally Abdomen: Soft nontender no masses Extremities: Normal pedal pulses no signs of edema Skin: Dry warm no rashes Back: No tenderness full ROM Course Course Course Narrative: Packing was removed and give patient a lot does have an appointment to see surgeon and tires patient's sister next week. Discharge Plan Discharge Clinical Impression: Abscess of skin or subcutaneous tissue Patient Disposition: Home, Self-Care Instructions: Abscess Follow-up (ED) Additional Instructions: Please keep your appointment to see the doctor please replace her dressing and clean the area and shower for approximately 2 minutes twice a day. If you have any other concerns or pain please do not hesitate to return to the emergency department. Prescriptions: No Action (DME) FreeStyle Test Strip See Rx Instructions .ROUTE .MEDSUPPLY Qty: 50 RF: 6 (DME) lancets [FreeStyle Lancets] 28 gauge misc See Rx Instructions .ROUTE .MEDSUPPLY Qty: 50 RF: 6 blood-glucose meter [FreeStyle Lite Meter] Kit 1 ea miscellaneous .Once a day 30 Days Qty: 1 RF: 0 hydroxychloroquine 200 mg tablet 200 mg PO DAILY Qty: 90 RF: 0 Anoro Ellipta 62.5-25 mcg/actuation blister with device 1 ea PO DAILY Qty: 60 RF: 3 doxycycline hyclate 100 mg capsule 100 mg PO BID 7 Days Qty: 14 RF: 0 ibuprofen 600 mg tablet 600 mg PO Q6H PRN (Reason: pain) Qty: 14 RF: 0 oxycodone 5 mg tablet 5 mg PO Q6H PRN (Reason: pain) Qty: 10 RF: 0 escitalopram oxalate [Lexapro] 20 mg tablet 20 mg PO DAILY RF: 0 Nicotrol 10 mg cartridge 0 inh inhalation RF: 0 alprazolam 1 mg tablet 1 mg PO BID PRN (Reason: anxiety) RF: 0 vitamin B complex-folic acid 0.4 mg tablet 1 tab PO DAILY RF: 0 sumatriptan 20 mg/actuation spray,non-aerosol 20 mg intranasal DAILY PRNRF: 0 albuterol sulfate 90 mcg/actuation HFA aerosol inhaler 2 puff inhalation Q4-6H PRNRF: 0 albuterol sulfate 2.5 mg /3 mL (0.083 %) solution for nebulization 2.5 mg inhalation QID PRNRF: 0 omeprazole 20 mg capsule,delayed release(DR/EC) 20 mg PO BID RF: 0 ropinirole 1 mg tablet 3 mg PO BID RF: 0 ondansetron HCl 4 mg tablet 4 mg PO TID PRN (Reason: anxiety) RF: 0 Flovent HFA 220 mcg/actuation HFA aerosol inhaler 1 puff inhalation BID 30 Days Qty: 12 RF: 11 metformin 500 mg tablet extended release 24hr 500 mg PO DAILY 30 Days Qty: 30 RF: 4 trazodone 50 mg tablet 50 - 150 mg PO BEDTIME PRNRF: 0 tizanidine 2 mg tablet 2 mg PO Q8H PRN (Reason: muscle spasm) RF: 0 nabumetone 750 mg tablet 750 mg PO BID RF: 0 fluticasone propionate 50 mcg/actuation spray,suspension intranasal RF: 0 vitamin B complex Tablet 1 tab PO DAILY RF: 0 meloxicam 15 mg tablet 15 mg PO DAILY RF: 0 levothyroxine 137 mcg tablet 137 mcg PO DAILY 30 Days Qty: 30 RF: 4
== END 2021-07-19 11:43 | disposition home or self-care (01) ==
PROVIDERS: Emergency Provider Student in an Organized Health Care Education/Training Program; PCP Internal Medicine
DX: Z48.01 Encounter for change or removal of surgical wound dressing (principal); L02.212 Cutaneous abscess of back [any part, except buttock and flank]; I10 Essential (primary) hypertension; E11.9 Type 2 diabetes mellitus without complications; F17.200 Nicotine dependence, unspecified, uncomplicated
CPT/HCPCS: 99283

== ENCOUNTER → 2021-07-21 15:22 | Outpatient (BNVA) | payer OTHER, SELFPAY | PROVIDERS: PCP Internal Medicine; Referring Provider Internal Medicine; Visit Provider Surgery | DX: Z48.817 Encounter for surgical aftercare following surgery on the skin and subcutaneous tissue (principal); L72.3 Sebaceous cyst | CPT/HCPCS: 99202 ==

== ENCOUNTER → 2021-08-18 08:29 | Outpatient (BNVA) | payer OTHER, SELFPAY | PROVIDERS: PCP Internal Medicine; Visit Provider Nurse Practitioner Family | DX: L72.9 Follicular cyst of the skin and subcutaneous tissue, unspecified (principal); M79.7 Fibromyalgia; E66.9 Obesity, unspecified; E06.3 Autoimmune thyroiditis; M47.816 Spondylosis without myelopathy or radiculopathy, lumbar region; E11.9 Type 2 diabetes mellitus without complications; R91.8 Other nonspecific abnormal finding of lung field | CPT/HCPCS: 99202; 99212 ==

== ENCOUNTER 2021-08-24 09:18 | Outpatient (REF) | payer OTHER, SELFPAY ==
[2021-08-24 12:40] LABS: Free T4 (Free Thyroxine) 1.15 ng/dL (0.71-1.85); Thyroid Stimulating Hormone 0.91 uIU/mL (0.32-4.0)
== END 2021-08-24 09:19 | disposition home or self-care (01) ==
LOC: HO.LAB 09:18
PROVIDERS: PCP Internal Medicine; Visit Provider Internal Medicine
DX: E03.9 Hypothyroidism, unspecified (principal)
CPT/HCPCS: 36415; 84439; 84443

== ENCOUNTER → 2021-08-31 13:31 | Outpatient (BNVA) | payer OTHER, SELFPAY | PROVIDERS: PCP Internal Medicine; Visit Provider Internal Medicine | DX: E03.9 Hypothyroidism, unspecified (principal) | CPT/HCPCS: 99212 ==

== ENCOUNTER → 2021-09-01 08:11 | Outpatient (BNVA) | payer OTHER, SELFPAY | PROVIDERS: PCP Internal Medicine; Visit Provider Nurse Practitioner Family | DX: M47.816 Spondylosis without myelopathy or radiculopathy, lumbar region (principal); M79.7 Fibromyalgia; M25.511 Pain in right shoulder | CPT/HCPCS: 99212 ==

== ENCOUNTER → 2021-09-19 13:54 | Outpatient (BNVA) | payer OTHER, SELFPAY | PROVIDERS: PCP Internal Medicine; Referring Provider Internal Medicine; Visit Provider Internal Medicine Cardiovascular Disease | DX: R06.00 Dyspnea, unspecified (principal); R00.2 Palpitations; E03.9 Hypothyroidism, unspecified; E06.3 Autoimmune thyroiditis; E55.9 Vitamin D deficiency, unspecified; E11.9 Type 2 diabetes mellitus without complications; I10 Essential (primary) hypertension; J44.9 Chronic obstructive pulmonary disease, unspecified; M79.7 Fibromyalgia; R91.8 Other nonspecific abnormal finding of lung field; F17.210 Nicotine dependence, cigarettes, uncomplicated; Z88.7 Allergy status to serum and vaccine; Z88.9 Allergy status to unspecified drugs, medicaments and biological substances; Z79.84 Long term (current) use of oral hypoglycemic drugs; Z79.899 Other long term (current) drug therapy | CPT/HCPCS: 99212 ==

== ENCOUNTER 2021-09-23 12:40 | Outpatient (REF) | payer OTHER, SELFPAY ==
[2021-09-23 13:13] VITALS: BP 160/64; PULSE 80; RESP 16; TEMP 36.4; O2SAT 96
[2021-09-23 13:15] VITALS: BMI 36.5
--- NOTE | 2021-09-23 15:19 | P.OP_ITS ---
Operative Note Operative Note Date of Service: 09/23/21 Narrative: Preoperative diagnosis: Sebaceous cyst midback Postoperative diagnosis: Sebaceous cyst midback Procedure: Excision of sebaceous cyst midback Surgeon: Vernon Parsons MD Animal Care Service Worker: No physician Anesthesia: Local lidocaine 1% with epinephrine Indications for procedure: 55-year-old female with a previous history of an infected sebaceous cyst of the midback presenting today for wider excision. Operative findings: 1.5 cm epidermal inclusion cyst/sebaceous cyst with some inflammatory changes surrounding the cyst but no evidence of abscess. Specimen: Sebaceous cyst cyst midback Estimated blood loss: 2 mL Complications: None Procedure details: Patient was brought to the OR and placed in a left lateral decubitus position. The site of the cyst was identified by the patient in the mid back. After assuring informed consent the skin was prepped with Betadine and draped in a sterile fashion. Local anesthesia consisting of lidocaine 1% with epinephrine was infiltrated around the lesion. Elliptical incision oriented longitudinally was then created carried out through subcutaneous tissue. Incision was continued around the cyst wall using sharp dissection. The lesion was completely excised and sent to pathology for further examination. After assuring adequate hemostasis the dermis was reapproximated using interrupted 3-0 Polysorb sutures. Skin was then closed using interrupted 3-0 nylon sutures. Sterile dressings consisting of 2 x 2 gauze and Tegaderm were then applied. The patient tolerated the procedure well. Sponge, instrument, and needle counts were reported as correct. The patient was transferred to PACU in stable condition.
== END 2021-09-23 12:41 | disposition home or self-care (01) ==
LOC: HO.MS 12:40
PROVIDERS: PCP Internal Medicine; Visit Provider Surgery
PROC: (CPT 11402; principal; 2021-09-23 13:20)
DX: L72.3 Sebaceous cyst (principal)
CPT/HCPCS: 11402; 88304

== ENCOUNTER → 2021-09-29 08:12 | Outpatient (BNVA) | payer OTHER, SELFPAY | PROVIDERS: PCP Internal Medicine; Visit Provider Nurse Practitioner Family | DX: Z51.81 Encounter for therapeutic drug level monitoring (principal); F11.20 Opioid dependence, uncomplicated; M47.816 Spondylosis without myelopathy or radiculopathy, lumbar region; M25.511 Pain in right shoulder; M79.7 Fibromyalgia | CPT/HCPCS: 99212 ==

== ENCOUNTER → 2021-09-30 09:55 | Outpatient (BNVA) | payer OTHER, SELFPAY | PROVIDERS: PCP Internal Medicine; Referring Provider Internal Medicine; Visit Provider Surgery | DX: Z48.817 Encounter for surgical aftercare following surgery on the skin and subcutaneous tissue (principal); Z87.2 Personal history of diseases of the skin and subcutaneous tissue | CPT/HCPCS: 99211 ==

== ENCOUNTER → 2021-10-06 12:52 | Outpatient (BNVA) | payer OTHER, SELFPAY | PROVIDERS: PCP Internal Medicine; Referring Provider Internal Medicine; Visit Provider Surgery | DX: Z09 Encounter for follow-up examination after completed treatment for conditions other than malignant neoplasm (principal); Z87.2 Personal history of diseases of the skin and subcutaneous tissue | CPT/HCPCS: 99212 ==

== ENCOUNTER → 2021-10-27 08:06 | Outpatient (BNVA) | payer OTHER, SELFPAY | PROVIDERS: PCP Internal Medicine; Visit Provider Nurse Practitioner Family | DX: Z51.81 Encounter for therapeutic drug level monitoring (principal); F11.20 Opioid dependence, uncomplicated; M47.816 Spondylosis without myelopathy or radiculopathy, lumbar region; M25.511 Pain in right shoulder; M79.7 Fibromyalgia; Z98.890 Other specified postprocedural states | CPT/HCPCS: 99212 ==

== ENCOUNTER → 2021-11-24 08:00 | Outpatient (BNVA) | payer OTHER, SELFPAY | PROVIDERS: PCP Internal Medicine; Visit Provider Nurse Practitioner Family | DX: Z51.81 Encounter for therapeutic drug level monitoring (principal); F11.20 Opioid dependence, uncomplicated; M47.816 Spondylosis without myelopathy or radiculopathy, lumbar region; M79.7 Fibromyalgia; Z98.890 Other specified postprocedural states | CPT/HCPCS: 99212 ==

== ENCOUNTER 2021-11-28 09:25 | Outpatient (REF) | payer OTHER, SELFPAY ==
[2021-11-28 11:08] LABS: MANUAL DIFF FLAG NO
[2021-11-28 11:47] LABS: Basophils Percent Auto 0.5 % (0-2); Eosinophils Absolute Auto 0.1 X10*3/uL (0.0-0.4); Eosinophils Percent Auto 1.7 % (0-4); Hematocrit 41.9 % (37.0-47.0); Imm Gran Abs Auto 0.02 X10*3/uL (0.00-0.03); Imm Gran Pct Auto 0.3 % (0.0-0.4); Lymphocytes Absolute Auto 2.1 X10*3/uL (1.2-4.9); Lymphocytes Percent Auto 33.4 % (20-40); Mean Corpuscular HGB Conc 33.4 g/dl (31.0-35.0); Mean Corpuscular Hemoglobin 28.2 pg (27.0-33.0); Mean Corpuscular Volume 84.5 fL (80.0-98.0); Mean Platelet Volume 9.6 fL (9.4-12.3); Monocytes Absolute Auto 0.4 X10*3/uL (0.1-1.2); Monocytes Percent Auto 6.9 % (2-11); Neutrophils Absolute Auto 3.6 x10*3/uL (2.0-8.3); Neutrophils Percent Auto 57.2 % (45-73); Platelet Count 305 X10*3/uL (160-400); Red Blood Count 4.96 X10*6/uL (4.20-5.50); Red Cell Distribution Width 14.2 % (11.0-16.0); White Blood Count 6.3 X10*3/uL (4.8-10.8)
[2021-11-28 12:02] LABS: Estimated Average Glucose 160 mg/dL; Hemoglobin A1c % 7.2 %
[2021-11-28 12:15] LABS: Anion Gap 13 (12-20); Blood Urea Nitrogen 9 mg/dL (9-16); Calcium 9.5 mg/dL (8.4-10.2); Carbon Dioxide 27 mmol/L (22-29); Chloride 101 mmol/L (96-108); Cholesterol 220 mg/dL; Estimated Glomerular Filt Rate > 60; Glucose Random 143 mg/dL (60-115); HDL Cholesterol 46 mg/dL; LDL Cholesterol Calculated 136 mg/dl; Sodium 137 mmol/L (135-145); Triglycerides 191 mg/dL
[2021-11-28 12:47] LABS: Creatinine Urine 39.55 mg/dL; Microalbumin Urine < 5.0 mg/L
== END 2021-11-28 09:26 | disposition home or self-care (01) ==
LOC: HO.LAB 09:25
PROVIDERS: PCP Internal Medicine; Referring Provider Internal Medicine; Visit Provider Internal Medicine Cardiovascular Disease
DX: Z00.00 Encounter for general adult medical examination without abnormal findings (principal); R00.2 Palpitations; I10 Essential (primary) hypertension
CPT/HCPCS: 36415; 80048; 80061; 82043; 83036; 85025; 93005; 99212

== ENCOUNTER → 2021-12-22 09:22 | Outpatient (BNVA) | payer OTHER, SELFPAY | PROVIDERS: PCP Internal Medicine; Visit Provider Nurse Practitioner Family | DX: Z51.81 Encounter for therapeutic drug level monitoring (principal); F11.20 Opioid dependence, uncomplicated; M47.816 Spondylosis without myelopathy or radiculopathy, lumbar region; M79.7 Fibromyalgia; Z98.890 Other specified postprocedural states | CPT/HCPCS: 99212 ==

== ENCOUNTER 2022-01-18 11:27 | Emergency (ER) | payer OTHER, SELFPAY ==
--- NOTE | ~2022-01-18 | CT_ITS ---
EXAMINATION: CT ABDOMEN AND PELVIS WITHOUT CONTRAST CLINICAL INFORMATION: Bilateral flank pain with question of calculi or hydronephrosis COMPARISON: CT abdomen pelvis 03/27/2021 TECHNIQUE: Multidetector volumetric imaging was performed from the superior aspect of the liver through the pubic symphysis. Sagittal and coronal reformatted images were obtained on the technologist's workstation. This CT examination was performed using dose optimization techniques as appropriate, variously including the following: *Automated exposure control *Adjustment of mA and/or kV according to patient size (this includes techniques or standardized protocols for targeted exams where dose is matched to indication/reason for exam; i.e. extremities or head) *Use of iterative reconstruction technique DLP: 814 mGy-cm FINDINGS: LUNG BASES: The visualized lung bases are unremarkable. LIVER, GALLBLADDER, AND BILIARY TREE: The liver is enlarged measuring 17.5 cm in greatest length and demonstrates decreased attenuation compared to the spleen consistent with hepatic steatosis. No focal hepatic lesion or biliary ductal dilatation is present. Status post cholecystectomy. PANCREAS: Unremarkable. SPLEEN: Unremarkable. ADRENAL GLANDS: Unremarkable. KIDNEYS AND URETERS: The kidneys are normal in size, shape, and attenuation. Again seen is a tiny punctate nonobstructing stone in the left kidney. No hydronephrosis, hydroureter, or other calculi seen. No perinephric stranding. BLADDER: Unremarkable. GASTROINTESTINAL TRACT: A sigmoid anastomosis is present with no evidence of a recurrent mass or obstruction. The small and large bowel are otherwise unremarkable. The appendix is unremarkable. ABDOMINAL WALL: No significant hernia is appreciated. LYMPH NODES: No retroperitoneal lymphadenopathy. VASCULAR: Calcific plaque present in the abdominal aorta without aneurysm. PELVIC VISCERA: Unremarkable. OSSEOUS STRUCTURES: Unremarkable. CT/CT abdomen pelvis wo con IMPRESSION: 1. A cause for the bilateral flank pain has not been found. 2. Mildly enlarged fatty liver 3. Stable appearance of punctate nonobstructing left renal calculus. 4. Rectal anastomosis without recurrent mass or obstruction. Fleischner guidelines were followed.
[2022-01-18 12:10] VITALS: BP 127/71; PULSE 82; RESP 18; TEMP 36.7; O2SAT 96; BMI 37.6
[2022-01-18 13:16] LABS: Appearance Urine CLEAR; Color Urine YELLOW; Glucose Urine UA NEG (NEG); Leukocyte Esterase Urine NEG (NEG); Nitrite Urine NEG (NEG); Urine Blood NEG (NEG); Urine Ketones NEG (NEG); Urine Protein NEG (NEG-TRACE)
[2022-01-18 14:06] LABS: MANUAL DIFF FLAG NO
[2022-01-18 14:07] LABS: Basophils Percent Auto 0.4 % (0-2); Eosinophils Absolute Auto 0.1 X10*3/uL (0.0-0.4); Eosinophils Percent Auto 2.4 % (0-4); Hematocrit 41.2 % (37.0-47.0); Hemoglobin 13.3 g/dl (12.0-16.0); Imm Gran Abs Auto 0.01 X10*3/uL (0.00-0.03); Imm Gran Pct Auto 0.2 % (0.0-0.4); Mean Corpuscular HGB Conc 32.3 g/dl (31.0-35.0); Mean Corpuscular Hemoglobin 27.1 pg (27.0-33.0); Mean Corpuscular Volume 84.1 fL (80.0-98.0); Mean Platelet Volume 9.2 fL (9.4-12.3); Monocytes Absolute Auto 0.3 X10*3/uL (0.1-1.2); Monocytes Percent Auto 5.3 % (2-11); Neutrophils Percent Auto 55.7 % (45-73); Platelet Count 313 X10*3/uL (160-400); Red Cell Distribution Width 14.6 % (11.0-16.0); White Blood Count 5.4 X10*3/uL (4.8-10.8)
[2022-01-18 14:44] LABS: Alanine Aminotransferase 26 U/L (0-31); Albumin Level 4.1 g/dL (3.5-5.0); Alkaline Phosphatase 115 U/L (39-117); Aspartate Amino Transferase 16 U/L (5-31); Bilirubin Total 0.4 mg/dL (0.0-1.0); Blood Urea Nitrogen 8 mg/dL (9-16); Calcium 9.3 mg/dL (8.4-10.2); Creatinine Clr Calc Pharmacy 100.6; Estimated Glomerular Filt Rate > 60; Glucose Random 148 mg/dL (60-115)
[2022-01-18 14:52] LABS: Anion Gap 13 (12-20); Carbon Dioxide 29 mmol/L (22-29); Chloride 100 mmol/L (96-108); Potassium 4.2 mmol/L (3.3-5.1); Sodium 138 mmol/L (135-145)
--- NOTE | 2022-01-18 17:15 | ED_ITS ---
HPI - Abdominal Pain General Chief Complaint: Abdominal Pain Stated Complaint: pain in both kidneys traveling to abd Time Seen by Provider: 01/18/22 16:54 Source: patient Mode of arrival: ambulatory Limitations: no limitations History of Present Illness HPI narrative: 56-year-old female who presents emergency department for evaluation of bilateral flank pain radiating to her lower abdomen since 11/25/2021. The patient states she has a history of kidney stones. She states that on 11/25/2021 she had a sudden onset of bilateral flank pain and this pain radiates to her lower abdominal area bilaterally. She states the pain has been constant since onset. The pain is a sharp pain which is 10/10 and does not wax or wane in intensity. The patient did see her urologist and had an ultrasound on 01/04/2022 which re vealed a left kidney stone otherwise was unremarkable. The neurologist wanted the patient to get a CT scan to further evaluate the pain but this test is not been scheduled yet. Patient states that the pain is gotten worse since she cannot tolerate the pain so she came to the emergency room to be evaluated. Patient states she does have chronic pain secondary to fibromyalgia and she takes oxycodone 5 mg 3 times a day. She denied fever, chills, sore throat, cough, chest pain, shortness of breath, dyspnea on exertion, nausea, vomiting, diarrhea. She has noted urinary frequency with no dysuria. She denies change in bowel movements, dark black stools or bloody stools. She states that she has gained approximately 20 lb she attributes this to her thyroid disease. Patient has a history of diverticulitis and states that she had 1 ft of colon removed proximally 5 years ago. She also has a history of a cholecystectomy. MD elicited complaint: flank pain Pertinent past history: diverticulitis and kidney stones Onset (ago): month(s) (3) Pain Consistency: constant Location: L flank and R flank Severity: severe Pain scale (0-10): 10 Quality: stabbing and sharp Radiation: LLQ and RLQ Migration to: no migration Exacerbating factors: nothing Relieving factors: nothing Associated symptoms: other (Frequency) Treatments prior to arrival: prescription analgesics (Oxycodone for abnormalities) Related Data Home Medications Medication Instructions Recorded Confirmed albuterol sulfate 90 mcg/actuation 2 puff inhalation Q4-6H PRN 04/10/20 09/30/21 aerosol inhaler alprazolam 1 mg tablet 1 mg PO BID PRN anxiety 04/10/20 09/30/21 duloxetine 60 mg capsule,delayed 60 mg PO DAILY 08/18/21 09/30/21 release ropinirole 3 mg tablet 3 mg PO BEDTIME 10/06/21 amitriptyline 75 mg tablet 75 mg PO BEDTIME 11/28/21 omeprazole 20 mg capsule,delayed 20 mg PO BID 11/28/21 release Previous Rx's Medication Instructions Recorded lancets 28 gauge (FreeStyle #50 ea 11/16/20 Lancets) umeclidinium 62.5 mcg-vilanterol 1 ea PO DAILY #60 ea 04/13/21 25 mcg/actuation powdr for inhalation (Anoro Ellipta) diclofenac sodium 1 % topical gel 4 g topical QID PRN pain 30 days 09/01/21 (Arthritis Pain (diclofenac)) #100 grams naloxone 4 mg/actuation nasal 4 mg intranasal Q2M PRN opioid 09/01/21 spray (Narcan) overdose #2 ea albuterol sulfate 2.5 mg (3 mL) inhalation QID PRN 09/19/21 shortness of breath or wheezing #180 mL hydrochlorothiazide 12.5 mg tablet 12.5 mg PO DAILY #60 tabs 09/19/21 levothyroxine 137 mcg tablet 137 mcg PO DAILY 30 days #30 tabs 10/12/21 Flovent HFA 220 mcg/actuation 1 puff PO BID #12 grams 12/20/21 aerosol inhaler (fluticasone propionate) oxycodone 5 mg tablet 5 mg PO TID PRN pain 30 days #90 12/22/21 tabs Allergies Allergy/AdvReac Type Severity Reaction Status Date / Time adhesive tape Allergy Severe BLISTERS Verified 01/18/22 12:10 Tetanus Vaccines and Toxoid Allergy Intermediate SWELLING, Verified 01/18/22 12:10 [TETANUS VACCINES & TOXOID] REDNESS surgical tape Allergy Severe hives/boils Uncoded 11/28/21 09:57 Review of Systems Review of Systems Yes all other systems are reviewed and are negative [facility] Past Medical History [facility] Narrative: Social history: She smokes 6 cigarettes per day times 38 years, she denies alcohol use she states she has not drank alcohol in the 18 years. She denies drug use. Medical History Asthma-COPD overlap syndrome Fibromyalgia Michael's thyroiditis Hypertension Hypothyroidism Mixed irritable bowel syndrome Obesity (BMI 30-39.9) BOY (obstructive sleep apnea) Palpitations Prediabetes Pulmonary nodules Tobacco dependence Type 2 diabetes mellitus Vitamin D deficiency Surgical History H/O arthroscopy of right knee H/O excision of ganglion cyst H/O hand surgery H/O release of tendon H/O wrist surgery History of colon resection History of esophagogastroduodenoscopy (EGD) History of excision of mass (09/28/21) Hx of cholecystectomy Hx of colonoscopy Hx of lithotripsy Status post tendon repair Status post trigger finger release Family History Family History Father Myocardial infarction Hypertension Diabetes CVD (cardiovascular disease) Mother Restless leg syndrome Diabetes Paternal Aunt Breast cancer Uterine cancer Social History Social History Alcohol intake: former Patient Tobacco Use Status: Current everyday Tobacco user Cigarettes Per Day: 2 Years Smoked: 30 +/- Advance Directives: Yes Advance Directives Information Provided: No Advance Directives on File: No Physical Exam ED Vital Signs: Vital Signs - 24 hr 01/18/22 12:10 01/18/22 17:31 Temperature 98.0 F 98.0 F Pulse Rate 82 71 Respiratory Rate 18 18 Blood Pressure 127/71 143/80 H Pulse Oximetry 96 98 Oxygen Delivery Method Room Air Room Air BMI result Body Mass Index 37.6 Const General: cooperative and no acute distress Orientation/consciousness: oriented to person and oriented to place Limitations: no limitations HENMT Head: Yes normal to inspection, Yes normocephalic and Yes atraumatic Ears: external ears normal General nose exam: Normal external nose present Face and sinus: Yes normal facial exam Mouth: Normal oral and palatal mucosa present Throat: Yes posterior oropharynx normal Eyes General: appearance normal, both eyes and all related structures Pupils: Equal, round and reactive pupils present Neck Neck: Yes normal visual inspection, Yes no lymphadenopathy, Yes trachea midline and Yes supple Chest Chest palpation & inspection: normal inspection of the chest and normal palpation of entire chest wall Resp Effort & Inspection: normal respiratory effort and able to speak in complete sentences Auscultation: clear to auscultation bilaterally Cardio Rate: regular rate Rhythm: regular rhythm Heart sounds: S1 normal heart sound present, S2 normal heart sound present and no murmurs GI Inspection: Yes normal to inspection Palpation (GI): Soft to palpation, Tenderness to palpation present (GI) in the LLQ (Moderate) and in the RLQ (Moderate) and no guarding Auscultation: normal bowel sounds General: Yes no CVA tenderness Back/Spine/Pelvis Back: no CVA tenderness Skin General skin exam: no rashes or lesions noted Neuro General: oriented to person and oriented to place Cranial nerves: Yes CN's II-XII intact bilaterally and Yes Equal, round and reactive pupils present Cognition (Neuro): normal cognition Motor exam (neuro): 5/5 motor strength present throughout Extrem General: Yes normal to inspection Psych Appearance: grossly normal Speech and movement: Normal speech and movement present Affect: normal affect Attitude: cooperative Thought process: Normal thought process present Thought content: Normal thought content present Course Course Course Narrative: 17 20: 56-year-old female who presents emergency department for evaluation of bilateral flank pain radiating to her lower abdomen with sudden onset on 11/25, the pain is been constant and 10/10 not relieved by her oxycodone that she takes for fibromyalgia. Patient had an ultrasound on 01/04/2022 that really revealed a left kidney stone otherwise was unremarkable. Patient's vital signs were normal. Physical examination did reveal bilateral lower abdominal tenderness. Laboratory evaluation revealed a normal CBC. CMP revealed a glucose of 148 otherwise was unremarkable. Lipase was normal at 17. I did order a CT scan of the abdomen pelvis without IV contrast to further evaluate her abdominal pain. She was also given oxycodone 10 mg orally. 1939: The patient's CT scan of the abdomen pelvis without IV contrast did reveal a punctate left renal stone otherwise has no other acute finding to explain the patient's symptoms. I did discuss this with the patient is possible this could be secondary to musculoskeletal pain or related to her fibromyalgia. Patient did feel better after receiving 10 mg of oxycodone orally. She was advised to contact her fibromyalgia provider to discuss further pain management options. Patient was given printed and verbal instructions and discharged home. MDM - Abdominal Pain Lab Data Result diagrams: 01/18/22 14:02 01/18/22 14:02 Labs: Lab Results 01/18/22 01/18/22 01/18/22 Range/Units 12:51 14:02 14:02 WBC 5.4 (4.8-10.8) X10*3/uL RBC 4.90 (4.20-5.50) X10*6/uL Hgb 13.3 (12.0-16.0) g/dl Hct 41.2 (37.0-47.0) % MCV 84.1 (80.0-98.0) fL MCH 27.1 (27.0-33.0) pg MCHC 32.3 (31.0-35.0) g/dl RDW 14.6 (11.0-16.0) % Plt Count 313 (160-400) X10*3/uL MPV 9.2 L (9.4-12.3) fL Immature Gran % (Auto) 0.2 (0.0-0.4) % Neut % (Auto) 55.7 (45-73) % Lymph % (Auto) 36.0 (20-40) % [place] % (Auto) 5.3 (2-11) % Eos % (Auto) 2.4 (0-4) % Baso % (Auto) 0.4 (0-2) % Lymph # (Auto) 2.0 (1.2-4.9) X10*3/uL [place] # (Auto) 0.3 (0.1-1.2) X10*3/uL Eos # (Auto) 0.1 (0.0-0.4) X10*3/uL Baso # (Auto) 0.0 (0.0-0.2) X10*3/uL Abs Immat Gran (auto) 0.01 (0.00-0.03) X10*3/uL Absolute Neuts (auto) 3.0 (2.0-8.3) x10*3/uL Absolute Nucleated RBC 0.000 (0.0-0.012) X10*3/uL Nucleated RBC % (auto) 0.0 (0.0-0.2) /100WBC Sodium 138 (135-145) mmol/L Potassium 4.2 (3.3-5.1) mmol/L Chloride 100 (96-108) mmol/L Carbon Dioxide 29 (22-29) mmol/L Anion Gap 13 (12-20) BUN 8 L (9-16) mg/dL Creatinine 0.82 (0.5-1.4) mg/dL Estim Creat Clear Calc 100.6 Estimated GFR > 60 Random Glucose 148 H (60-115) mg/dL Calcium 9.3 (8.4-10.2) mg/dL Total Bilirubin 0.4 (0.0-1.0) mg/dL AST 16 (5-31) U/L ALT 26 (0-31) U/L Alkaline Phosphatase 115 (39-117) U/L Total Protein 7.0 (6.5-8.0) g/dL Albumin 4.1 (3.5-5.0) g/dL Lipase 17 (8-78) U/L Urine Color YELLOW Urine Appearance CLEAR Urine pH 7.0 (5.0-8.0) Ur Specific [place] 1.010 (1.005-1.025) Urine Protein NEG (NEG-TRACE) MG/DL Urine Glucose (UA) NEG (NEG) MG/DL Urine Ketones NEG (NEG) MG/DL Urine Blood NEG (NEG) Urine Nitrite NEG (NEG) Ur Leukocyte Esterase NEG (NEG) Discharge Plan Discharge Clinical Impression: Bilateral flank pain Patient Disposition: Home, Self-Care Instructions: Flank Pain (ED) Additional Instructions: Your complete blood count was normal. Your comprehensive metabolic panel was normal. Your lipase was normal Your urinalysis was negative blood in the urine. The CT scan of your abdomen pelvis revealed a punctate stone in the left kidney but this is not the cause of your pain. Please see the radiology impression below and show this to your urologist. Your pain may be due to musculoskeletal pain an I advised you to contact your fibromyalgia provider to discuss further management of your pain. You should also discussed your pain with your urologist. Follow-up with your doctor in 2 days. Please return to the emergency department if your symptoms get worse or if you develop any symptoms that are concerning to you. CT abdomen pelvis 03/27/2021 IMPRESSION: 1.? A cause for the bilateral flank pain has not been found. 2.? Mildly enlarged fatty liver 3.? Stable appearance of punctate nonobstructing left renal calculus. 4.? Rectal anastomosis without recurrent mass or obstruction. Dictated By:Jose Ryan MD Prescriptions: No Action (DME) lancets [FreeStyle Lancets] 28 gauge misc See Rx Instructions .ROUTE .MEDSUPPLY Qty: 50 6RF Rx Instructions: Once a day Anoro Ellipta 62.5-25 mcg/actuation blister with device 1 ea PO DAILY Qty: 60 3RF albuterol sulfate 2.5 mg /3 mL (0.083 %) solution for nebulization 2.5 mg inhalation QID PRN (Reason: shortness of breath or wheezing) Qty: 180 0RF levothyroxine 137 mcg tablet 137 mcg PO DAILY 30 Days Qty: 30 2RF Flovent HFA 220 mcg/actuation HFA aerosol inhaler 1 puff PO BID Qty: 12 0RF alprazolam 1 mg tablet 1 mg PO BID PRN (Reason: anxiety) albuterol sulfate 90 mcg/actuation HFA aerosol inhaler 2 puff inhalation Q4-6H PRN hydrochlorothiazide 12.5 mg tablet 12.5 mg PO DAILY Qty: 60 3RF diclofenac sodium [Arthritis Pain (diclofenac)] 1 % gel 4 g topical QID PRN (Reason: pain) 30 Days Qty: 100 0RF Rx Instructions: apply to affected areas up to four times per day. naloxone [Narcan] 4 mg/actuation spray,non-aerosol 4 mg intranasal Q2M PRN (Reason: opioid overdose) Qty: 2 1RF Rx Instructions: spray 1 dose into ONE nostril; alternate nostrils w each dose until help arrives amitriptyline 75 mg tablet 75 mg PO BEDTIME omeprazole 20 mg capsule,delayed release(DR/EC) 20 mg PO BID ropinirole 3 mg tablet 3 mg PO BEDTIME oxycodone 5 mg tablet 5 mg PO TID PRN (Reason: pain) 30 Days Qty: 90 0RF Rx Instructions: Partial Fill upon patient request. duloxetine 60 mg capsule,delayed release(DR/EC) 60 mg PO DAILY
[2022-01-18 17:19] LABS: Lipase 17 U/L (8-78)
[2022-01-18] MEDS: oxyCODONE HCl Immed Release 5 MG TABLET 10 MG PO (17:29)
[2022-01-18 17:31] VITALS: BP 143/80; PULSE 71; RESP 18; TEMP 36.7; O2SAT 98
--- NOTE | 2022-01-18 17:35 | PC.NURSE ---
PATIENT A/O 4 PEARRLA . HEART BEAT REGULAR AT 72 BEATS PER MINUTE . LUNGS CLEAR . SKIN PINK WARM AND DRY . ABDOMEN SOFT AND DISTENDED. REBOUND TENDERNESS NOTED ON LEFT SIDE . POSITIVE BOWEL SOUNDS IN ALL FOUR QUADRANTS . PATIENT REPORTS PAIN 10/10 , MEDICATED ORDERED . PATIENT AWAITING TRANSPORT TO CT. AWARE OF PLAN OF CARE .
== END 2022-01-18 19:52 | disposition home or self-care (01) ==
PROVIDERS: Emergency Provider Emergency Medicine Emergency Medical Services; PCP Internal Medicine
DX: R10.9 Unspecified abdominal pain (principal); Z87.442 Personal history of urinary calculi; Z90.49 Acquired absence of other specified parts of digestive tract; E11.9 Type 2 diabetes mellitus without complications; I10 Essential (primary) hypertension; F17.200 Nicotine dependence, unspecified, uncomplicated
CPT/HCPCS: 36415; 74176; 80053; 81003; 83690; 85025; 99284

== ENCOUNTER → 2022-01-19 09:56 | Outpatient (BNVA) | payer OTHER, SELFPAY | PROVIDERS: PCP Internal Medicine; Visit Provider Nurse Practitioner Family | DX: M79.7 Fibromyalgia (principal); G89.29 Other chronic pain; M54.9 Dorsalgia, unspecified; M47.816 Spondylosis without myelopathy or radiculopathy, lumbar region; Z79.891 Long term (current) use of opiate analgesic | CPT/HCPCS: 99212 ==

== ENCOUNTER 2022-01-23 11:24 | Outpatient (REF) | payer OTHER, SELFPAY ==
[2022-01-23 12:56] LABS: Free T4 (Free Thyroxine) 1.48 ng/dL (0.71-1.85); Thyroid Stimulating Hormone 0.28 uIU/mL (0.32-4.0); Vitamin D 25-OH Total 15.6 ng/mL (>30)
== END 2022-01-23 11:25 | disposition home or self-care (01) ==
LOC: HO.LAB 11:24
PROVIDERS: PCP Internal Medicine; Visit Provider Internal Medicine
DX: E03.9 Hypothyroidism, unspecified (principal); E55.9 Vitamin D deficiency, unspecified
CPT/HCPCS: 36415; 82306; 84439; 84443

== ENCOUNTER 2022-02-15 08:43 | Outpatient (REF) | payer OTHER, SELFPAY ==
--- NOTE | ~2022-02-15 | CT_ITS ---
EXAMINATION: CT CHEST WITHOUT CONTRAST CLINICAL INFORMATION: Nonspecific abnormal finding of lungs. COMPARISON: CT chest 04/14/2021. TECHNIQUE: Multidetector volumetric CT imaging of the chest was done. Axial MIP volume rendering provided. Sagittal and coronal reformatted images were obtained. This CT examination was performed using dose optimization techniques as appropriate, variously including the following: *Automated exposure control *Adjustment of mA and/or kV according to patient size (this includes techniques or standardized protocols for targeted exams where dose is matched to indication/reason for exam; i.e. 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 There are bilateral several pulmonary nodules. The largest nodules are an 8 mm nodule right lower lobe adjacent to major fissure, axial image 257/7, stable; 5 mm nodules in right upper and middle lobe attached to the major fissure on axial slice 252/7 and 257/7. Previously visualized 4 mm nodule pleural-based right lower lobe is not visualized at this time. Again visualized is scarring in the posterior medial segment right lower lobe, stable. MEDIASTINUM: The thyroid lobes are symmetrical and normal. The central trachea and the bronchi are widely patent. Heart size and the great vessels are normal caliber. No pericardial effusion seen. No abnormal-size mediastinal or hilar lymph nodes seen. PLEURA: There is no pleural effusion. No pleural mass or thickening. AXILLA: There are small shotty lymph nodes in the axilla with largest lymph node measuring 7 mm. UPPER ABDOMEN: Visualized liver, spleen, pancreas and bilateral adrenal glands unremarkable. The gallbladder has been surgically removed. OSSEOUS STRUCTURES: Unremarkable. CT/CT chest wo con IMPRESSION: Resolution of new nodules seen in the right lower lobe on the last exam. There are no new nodules visualized. Multiple bilateral pulmonary nodules are stable. Patchy area of scarring or atelectasis right lower lobe medial basal segment is stable. No abnormal mediastinal or axillary lymphadenopathy. Fleischner guidelines were followed.
== END 2022-02-15 08:44 | disposition home or self-care (01) ==
LOC: HO.CT 08:43
PROVIDERS: PCP Internal Medicine; Visit Provider Hospitalist
DX: R91.8 Other nonspecific abnormal finding of lung field (principal)
CPT/HCPCS: 71250

== ENCOUNTER 2022-02-15 09:09 | Emergency (ER) | payer OTHER, SELFPAY ==
[2022-02-15 09:46] VITALS: BMI 36.5
[2022-02-15 09:49] VITALS: BP 132/74; PULSE 85; RESP 20; TEMP 37; O2SAT 96
[2022-02-15 10:03] LABS: MANUAL DIFF FLAG NO
[2022-02-15 10:10] LABS: Basophils Percent Auto 0.5 % (0-2); Eosinophils Absolute Auto 0.2 X10*3/uL (0.0-0.4); Eosinophils Percent Auto 2.7 % (0-4); Hematocrit 41.3 % (37.0-47.0); Hemoglobin 13.7 g/dl (12.0-16.0); Imm Gran Abs Auto 0.01 X10*3/uL (0.00-0.03); Imm Gran Pct Auto 0.2 % (0.0-0.4); Lymphocytes Absolute Auto 1.8 X10*3/uL (1.2-4.9); Mean Corpuscular HGB Conc 33.2 g/dl (31.0-35.0); Mean Corpuscular Hemoglobin 27.8 pg (27.0-33.0); Mean Corpuscular Volume 83.8 fL (80.0-98.0); Mean Platelet Volume 9.3 fL (9.4-12.3); Monocytes Absolute Auto 0.4 X10*3/uL (0.1-1.2); Neutrophils Absolute Auto 3.5 x10*3/uL (2.0-8.3); Neutrophils Percent Auto 59.6 % (45-73); Platelet Count 338 X10*3/uL (160-400); Red Blood Count 4.93 X10*6/uL (4.20-5.50); Red Cell Distribution Width 14.7 % (11.0-16.0); White Blood Count 5.9 X10*3/uL (4.8-10.8)
[2022-02-15 10:17] LABS: Appearance Urine HAZY; Color Urine YELLOW; Glucose Urine UA NEG (NEG); Leukocyte Esterase Urine NEG (NEG); Nitrite Urine NEG (NEG); Specific Gravity - Urine <= 1.005 (1.005-1.025); Urine Blood NEG (NEG); Urine Ketones NEG (NEG); Urine Protein NEG (NEG-TRACE)
[2022-02-15 13:45] LABS: Anion Gap 15 (12-20); Blood Urea Nitrogen 7 mg/dL (9-16); Calcium 9.1 mg/dL (8.4-10.2); Carbon Dioxide 25 mmol/L (22-29); Chloride 102 mmol/L (96-108); Creatinine Clr Calc Pharmacy 95.5; Estimated Glomerular Filt Rate > 60; Glucose Random 215 mg/dL (60-115); Potassium 3.9 mmol/L (3.3-5.1); Sodium 138 mmol/L (135-145)
== END 2022-02-15 11:58 | disposition left against medical advice (07) ==
PROVIDERS: Emergency Provider Emergency Medicine; PCP Internal Medicine
DX: R10.9 Unspecified abdominal pain (principal); Z79.899 Other long term (current) drug therapy
CPT/HCPCS: 36415; 80048; 81003; 85025; 99282; 99283

== ENCOUNTER → 2022-02-16 10:18 | Outpatient (BNVA) | payer OTHER, SELFPAY | PROVIDERS: PCP Internal Medicine; Visit Provider Nurse Practitioner Family | DX: M79.7 Fibromyalgia (principal); M54.9 Dorsalgia, unspecified; M47.816 Spondylosis without myelopathy or radiculopathy, lumbar region; G89.29 Other chronic pain; E11.9 Type 2 diabetes mellitus without complications; R25.1 Tremor, unspecified; E05.90 Thyrotoxicosis, unspecified without thyrotoxic crisis or storm; Z98.890 Other specified postprocedural states; Z79.891 Long term (current) use of opiate analgesic | CPT/HCPCS: 99212 ==

== ENCOUNTER 2022-02-28 08:25 | Outpatient (REF) | payer OTHER, SELFPAY ==
[2022-02-28 10:15] LABS: Free T4 (Free Thyroxine) 1.41 ng/dL (0.71-1.85); Thyroid Stimulating Hormone 0.37 uIU/mL (0.32-4.0)
== END 2022-02-28 08:26 | disposition home or self-care (01) ==
LOC: HO.LAB 08:25
PROVIDERS: PCP Internal Medicine; Visit Provider Internal Medicine
DX: E03.9 Hypothyroidism, unspecified (principal)
CPT/HCPCS: 36415; 84439; 84443

== ENCOUNTER → 2022-03-13 12:22 | Outpatient (BNVA) | payer OTHER, SELFPAY | PROVIDERS: PCP Internal Medicine; Visit Provider Internal Medicine | DX: E03.9 Hypothyroidism, unspecified (principal) | CPT/HCPCS: 99212; Q3014 ==

== ENCOUNTER → 2022-03-14 10:08 | Outpatient (BNVA) | payer OTHER, SELFPAY | PROVIDERS: PCP Internal Medicine; Visit Provider Nurse Practitioner Family | DX: Z51.81 Encounter for therapeutic drug level monitoring (principal) | CPT/HCPCS: 99211 ==

== ENCOUNTER → 2022-04-11 11:10 | Outpatient (BNVA) | payer OTHER, SELFPAY | PROVIDERS: PCP Internal Medicine; Visit Provider Nurse Practitioner Family | DX: M79.671 Pain in right foot (principal); M79.672 Pain in left foot; M79.7 Fibromyalgia; M54.9 Dorsalgia, unspecified; G89.29 Other chronic pain; M47.816 Spondylosis without myelopathy or radiculopathy, lumbar region | CPT/HCPCS: 99212 ==

== ENCOUNTER → 2022-04-26 12:37 | Outpatient (BNVA) | payer OTHER, SELFPAY | PROVIDERS: PCP Internal Medicine; Referring Provider Internal Medicine; Visit Provider Internal Medicine Cardiovascular Disease | DX: R00.2 Palpitations (principal); R06.09 Other forms of dyspnea | CPT/HCPCS: 99212 ==

== ENCOUNTER → 2022-05-01 09:53 | Outpatient (BNVA) | payer OTHER, SELFPAY | PROVIDERS: PCP Internal Medicine; Visit Provider Hospitalist | DX: J44.9 Chronic obstructive pulmonary disease, unspecified (principal); G47.33 Obstructive sleep apnea (adult) (pediatric); R91.8 Other nonspecific abnormal finding of lung field; F17.200 Nicotine dependence, unspecified, uncomplicated; Z71.6 Tobacco abuse counseling | CPT/HCPCS: 99212 ==

== ENCOUNTER → 2022-05-11 08:35 | Outpatient (BNVA) | payer OTHER, SELFPAY | PROVIDERS: PCP Internal Medicine; Visit Provider Nurse Practitioner Family | DX: Z51.81 Encounter for therapeutic drug level monitoring (principal); F11.20 Opioid dependence, uncomplicated | CPT/HCPCS: 99211 ==

== ENCOUNTER → 2022-05-24 07:46 | Outpatient (REF) | payer OTHER, SELFPAY ==
--- NOTE | 2022-05-24 07:49 | CA_ITS ---
Acquisition Time: 2022-05-24 08:55:15 Total Exercise Time: 00:03:43 Test Indications: Dyspnea Medications: SEE H Protocol: SANTANA Max HR: 144 BPM 87% of Pred: 164 BPM Max BP: 230/070 mmHG Max Work Load: 5.4 METS Exercise stress test with exercise 3 min 43 sec of Santana protocol, achieving 87% MPHR, with moderate to severe shortness of breath, no chest discomfort, with isolated PVCs and few ventricular cuplets, with hypertensive response to exercise with baseline BP 152/80 which codi to a max of 230/70, with nondiagnostic EKGs for ischemia due to baseline EKG abnormality: downsloping ST depression with T inversion inferiorly and V3-V6. In recovery her breathing improved to baseline and BP came down to 138/78. Test reviewed with Dr Bañuelos. Referred By: Vikas Bañuelos Overread By: AISSATOU FOSTER
--- NOTE | 2022-05-24 07:49 | HM_ITS ---
* Total monitoring time 2 days and 20 hours. * Underlying rhythm is sinus. Average ventricular rate 81/Min. Range 67 to 119/Min. * Rare supraventricular and ventricular ectopy. * No significant pauses or AV blocks. * No diary submitted. MTDD
== END ==
LOC: HO.CARD 07:46
PROVIDERS: PCP Internal Medicine; Visit Provider Internal Medicine Cardiovascular Disease
DX: R06.09 Other forms of dyspnea (principal)
CPT/HCPCS: 93017; 93242

== ENCOUNTER 2022-06-12 09:37 | Outpatient (REF) | payer OTHER, SELFPAY ==
[2022-06-12 11:47] LABS: Anion Gap 17 (12-20); Blood Urea Nitrogen 11 mg/dL (9-16); Calcium 9.9 mg/dL (8.4-10.2); Carbon Dioxide 25 mmol/L (22-29); Chloride 101 mmol/L (96-108); Estimated Glomerular Filt Rate > 60; Glucose Random 120 mg/dL (60-115); Potassium 4.3 mmol/L (3.3-5.1); Sodium 139 mmol/L (135-145)
== END 2022-06-12 09:38 | disposition home or self-care (01) ==
LOC: HO.LAB 09:37
PROVIDERS: PCP Internal Medicine; Visit Provider Nurse Practitioner Family
DX: M79.7 Fibromyalgia (principal); M47.816 Spondylosis without myelopathy or radiculopathy, lumbar region; R94.39 Abnormal result of other cardiovascular function study; G89.29 Other chronic pain; F17.210 Nicotine dependence, cigarettes, uncomplicated; Z79.891 Long term (current) use of opiate analgesic
CPT/HCPCS: 36415; 80048; 99212

== ENCOUNTER 2022-06-20 09:19 | Emergency (ER) | payer OTHER, SELFPAY ==
[2022-06-20 09:21] VITALS: BP 172/71; PULSE 92; RESP 16; TEMP 36.6; O2SAT 95; BMI 36.5
[2022-06-20 09:39] LABS: MANUAL DIFF FLAG NO
[2022-06-20 09:44] LABS: Appearance Urine Clear; Color Urine Yellow; Glucose Urine UA >=1000 mg/dL (Negative); Leukocyte Esterase Urine Negative (Negative); Nitrite Urine Negative (Negative); PH 6.5 (5.0-9.0); Specific Gravity - Urine >= 1.030 (1.005-1.025); UMIC TRIGGER UACC YES; Urine Blood Large (3+) (Negative); Urine Ketones Trace mg/dL (Negative); Urine Protein Trace mg/dL (Neg-Trace)
[2022-06-20 09:45] LABS: Basophils Percent Auto 0.4 % (0-2); Eosinophils Absolute Auto 0.2 X10*3/uL (0.0-0.4); Eosinophils Percent Auto 2.5 % (0-4); Hematocrit 49.1 % (37.0-47.0); Hemoglobin 15.7 g/dl (12.0-16.0); Imm Gran Abs Auto 0.03 X10*3/uL (0.00-0.03); Imm Gran Pct Auto 0.4 % (0.0-0.4); Lymphocytes Absolute Auto 1.8 X10*3/uL (1.2-4.9); Lymphocytes Percent Auto 21.4 % (20-40); Mean Corpuscular Hemoglobin 25.9 pg (27.0-33.0); Mean Corpuscular Volume 80.9 fL (80.0-98.0); Monocytes Absolute Auto 0.4 X10*3/uL (0.1-1.2); Monocytes Percent Auto 4.9 % (2-11); Neutrophils Percent Auto 70.4 % (45-73); Platelet Count 397 X10*3/uL (160-400); Red Blood Count 6.07 X10*6/uL (4.20-5.50); Red Cell Distribution Width 17.4 % (11.0-16.0); White Blood Count 8.4 X10*3/uL (4.8-10.8)
[2022-06-20 09:56] LABS: Bacteria Urine 4+ (None Seen); Hyaline Casts Urine 0-2 /LPF (0-2); WBC Urine 0-5 /HPF (0-5)
[2022-06-20 10:00] LABS: Anion Gap 17 (12-20); Blood Urea Nitrogen 15 mg/dL (9-16); Calcium 9.9 mg/dL (8.4-10.2); Carbon Dioxide 24 mmol/L (22-29); Chloride 100 mmol/L (96-108); Creatinine Clr Calc Pharmacy 83.6; Estimated Glomerular Filt Rate 59; Glucose Random 201 mg/dL (60-115); Potassium 3.7 mmol/L (3.3-5.1); Sodium 137 mmol/L (135-145)
== END 2022-06-20 14:35 | disposition left against medical advice (07) ==
PROVIDERS: Emergency Provider Emergency Medicine; PCP Internal Medicine
DX: N23 Unspecified renal colic (principal); Z79.899 Other long term (current) drug therapy
CPT/HCPCS: 36415; 80048; 81001; 85025; 99282; 99283

== ENCOUNTER → 2022-07-11 08:04 | Outpatient (BNVA) | payer OTHER, SELFPAY | PROVIDERS: PCP Internal Medicine; Visit Provider Nurse Practitioner Family | DX: Z13.89 Encounter for screening for other disorder (principal) ==

== ENCOUNTER → 2022-08-09 08:25 | Outpatient (BNVA) | payer OTHER, SELFPAY | PROVIDERS: PCP Internal Medicine; Referring Provider Internal Medicine; Visit Provider Internal Medicine Cardiovascular Disease | DX: I25.10 Atherosclerotic heart disease of native coronary artery without angina pectoris (principal); R00.2 Palpitations; R06.09 Other forms of dyspnea | CPT/HCPCS: 93005; 99212 ==

== ENCOUNTER 2022-08-10 08:05 | Outpatient (REF) | payer OTHER, SELFPAY ==
--- NOTE | ~2022-08-10 | XR_ITS ---
EXAMINATION: XR LUMBOSACRAL SPINE CLINICAL INFORMATION: Dorsalgia COMPARISON: None TECHNIQUE: Three views of the lumbosacral spine. FINDINGS: There is normal lumbar lordosis. The vertebral heights, alignment and disc heights are normal. No visible acute fracture, dislocation or lytic process seen. The paravertebral soft tissues are normal. There are surgical cece in the right upper quadrant. XR/XR lumbar spine 2-3V IMPRESSION: Unremarkable lumbar spine exam. No visible acute fracture, dislocation or lytic process seen.
== END 2022-08-10 08:06 | disposition home or self-care (01) ==
LOC: HO.XRAY 08:05
PROVIDERS: PCP Internal Medicine; Visit Provider Nurse Practitioner Family
DX: M47.816 Spondylosis without myelopathy or radiculopathy, lumbar region (principal); M54.9 Dorsalgia, unspecified; G89.29 Other chronic pain
CPT/HCPCS: 72100; 99212

== ENCOUNTER → 2022-09-07 08:28 | Outpatient (BNVA) | payer OTHER, SELFPAY | PROVIDERS: PCP Internal Medicine; Visit Provider Nurse Practitioner Family | DX: Z13.89 Encounter for screening for other disorder (principal) ==

== ENCOUNTER → 2022-10-05 08:37 | Outpatient (BNVA) | payer OTHER, SELFPAY | PROVIDERS: PCP Internal Medicine; Visit Provider Anesthesiology ==

== ENCOUNTER → 2022-10-27 10:25 | Outpatient (BNVA) | payer OTHER, SELFPAY | PROVIDERS: PCP Internal Medicine; Visit Provider Hospitalist | DX: J44.9 Chronic obstructive pulmonary disease, unspecified (principal); R91.8 Other nonspecific abnormal finding of lung field; G47.33 Obstructive sleep apnea (adult) (pediatric); F17.210 Nicotine dependence, cigarettes, uncomplicated; Z79.899 Other long term (current) drug therapy | CPT/HCPCS: 99212 ==

== ENCOUNTER → 2022-11-15 09:00 | Outpatient (REF) | payer OTHER, SELFPAY | LOC: HO.SL 09:00 | PROVIDERS: PCP Internal Medicine; Visit Provider Hospitalist | DX: G47.33 Obstructive sleep apnea (adult) (pediatric) (principal) | CPT/HCPCS: 95806 ==

== ENCOUNTER 2022-11-29 18:41 | Emergency (ER) | payer OTHER, SELFPAY ==
--- NOTE | ~2022-11-29 | XR_ITS ---
EXAMINATION: XR ELBOW, RIGHT CLINICAL INFORMATION: Pain COMPARISON: None available. TECHNIQUE: AP, lateral, and oblique views of the right elbow. FINDINGS: The bones and soft tissues are normal. No fracture or joint effusion. Alignment is anatomic. Joint spaces are maintained. XR/XR elbow RT min 3V IMPRESSION: Normal right elbow.
[2022-11-29 19:02] VITALS: BP 140/57; PULSE 84; RESP 18; TEMP 36.8; O2SAT 96; BMI 37.3
--- NOTE | 2022-11-29 19:23 | ED.EXTPRO ---
HPI - Extremity Problem General Chief complaint: Extremity Injury, Upper Stated complaint: R arm pain. Time Seen by Provider: 11/29/22 19:24 Source: patient Mode of arrival: ambulatory Limitations: no limitations History of Present Illness HPI Narrative: 57 yo female with history of asthma/copd, BOY, DM2, CAD, fibromyalgia and chronic back pain on chronic opiates who presents to the ER for evaluation of 6 weeks of right elbow pain s/p tendonitis surgery at [facility]. She reports worsening pain at the medial aspect of the elbow as well as numbness to the skin. He called his surgeon who told her that is was the nerves waking up. She reports she has been taking her prescribed ibuprofen and oxycodone with minimal relief. She states she also has pain in her bicep that is new, she had bicep bruising post-op that resolved. No radiation or pain. No distal numbness, tingling or weakness. She denies any swelling of the upper extremity. She has an appointment with her surgeon tomorrow. MD Complaint: extremity pain and joint pain Onset (ago): week(s) (6) Pain Consistency: constant Location: right and elbow Severity scale (1-10): 8 Quality: aching and sharp Radiation: proximal Relieving factors: nothing Exacerbating factors: range of motion and palpation Associated symptoms: denies other symptoms Context: recent surgery/procedure Related Data Home Medications Medication Instructions Recorded Confirmed alprazolam 1 mg tablet 1 mg PO BID PRN anxiety 04/10/20 10/05/22 duloxetine 60 mg capsule,delayed 60 mg PO DAILY 08/18/21 10/05/22 release ropinirole 3 mg tablet 3 mg PO BEDTIME 10/06/21 10/05/22 amitriptyline 75 mg tablet 75 mg PO BEDTIME 11/28/21 10/05/22 omeprazole 20 mg capsule,delayed 20 mg PO BID 11/28/21 10/05/22 release aripiprazole 2 mg tablet 2 mg PO DAILY 02/16/22 10/05/22 empagliflozin 25 mg tablet 25 mg PO DAILY 04/11/22 10/05/22 (Jardiance) metformin 500 mg tablet 500 mg PO BID 04/26/22 10/05/22 CPAP (CPAP Machine/Device) 10/27/22 nebulizers 10/27/22 Previous Rx's Medication Instructions Recorded lancets 28 gauge (FreeStyle #50 ea 05/04/21 Lancets) naloxone 4 mg/actuation nasal 4 mg intranasal Q2M PRN opioid 09/01/21 spray (Narcan) overdose #2 ea albuterol sulfate 2.5 mg/3 mL 2.5 mg (3 mL) inhalation QID PRN 09/19/21 (0.083 %) solution for nebulization shortness of breath or wheezing #180 mL levothyroxine 125 mcg tablet 125 mcg PO DAILY 30 days #30 tabs 01/23/22 Flovent HFA 220 mcg/actuation 1 puff PO BID #12 grams 02/20/22 aerosol inhaler (fluticasone propionate) albuterol sulfate 90 mcg/actuation 2 puff inhalation Q4-6H PRN 05/01/22 aerosol inhaler shortness of breath or wheezing #8.5 grams umeclidinium 62.5 mcg-vilanterol 1 ea inhalation DAILY #60 ea 05/01/22 25 mcg/actuation powdr for inhalation (Anoro Ellipta) aspirin 81 mg tablet,delayed 81 mg PO DAILY #90 tabs 06/29/22 release (Adult Aspirin Regimen) atorvastatin 40 mg tablet 40 mg PO BEDTIME #90 tabs 06/29/22 Allergies Allergy/AdvReac Type Severity Reaction Status Date / Time adhesive tape Allergy Severe BLISTERS Verified 10/27/22 10:46 Tetanus Vaccines and Toxoid Allergy Intermediate SWELLING, Verified 10/27/22 10:46 [TETANUS VACCINES & TOXOID] REDNESS surgical tape Allergy Severe hives/boils Uncoded 10/27/22 10:46 Review of Systems Review of Systems: Yes all other systems are reviewed and are negative PMFSH Past Medical History Medical History Asthma-COPD overlap syndrome Fibromyalgia Michael's thyroiditis Hypertension Hypothyroidism Mixed irritable bowel syndrome Obesity (BMI 30-39.9) BOY (obstructive sleep apnea) Palpitations Prediabetes Pulmonary nodules Tobacco dependence Type 2 diabetes mellitus Vitamin D deficiency Surgical History H/O arthroscopy of right knee H/O excision of ganglion cyst H/O hand surgery H/O release of tendon H/O wrist surgery History of colon resection History of esophagogastroduodenoscopy (EGD) History of excision of mass (09/28/21) Hx of cholecystectomy Hx of colonoscopy Hx of lithotripsy Status post tendon repair Status post trigger finger release Family History Family History Father Myocardial infarction Hypertension Diabetes CVD (cardiovascular disease) Mother Restless leg syndrome Diabetes Paternal Aunt Breast cancer Uterine cancer Social History Social History Alcohol intake: former Patient Tobacco Use Status: Current everyday Tobacco user Cigarettes Per Day: 3 Years Smoked: 30 +/- Advance Directives: No Advance Directives Information Provided: No Physical Exam Vital Signs: Vital Signs: Last Vital Signs Temp 98.3 F 11/29/22 19:02 Pulse 84 11/29/22 19:02 Resp 18 11/29/22 19:02 BP 140/57 H 11/29/22 19:02 Pulse Ox 96 11/29/22 19:02 O2 Del Method Room Air 11/29/22 19:02 BMI result Body Mass Index 37.3 Appearance: Alert. Oriented X3. No acute distress. HEENT: normal inspection CVS: Normal heart rate and rhythm. Pulses normal. Respiratory: No respiratory distress. Skin: Skin warm and dry. Normal skin color. Normal skin turgor. No rashes. Extremities: well healed surgical scar over the lateral aspect of the posterior right elbow. normal active and passive ROM. the anterior aspect of the medial right elbow is tender with decreased sensation. distal bicep tendon is tender. equal and symmetrical strength throughout. NV intact distally. no swelling of the RUE Neuro: Oriented X 3. No motor deficit. No sensory deficit. Medications Administered Discontinued Medications Generic Name Dose Route Start Last Admin Trade Name Freq PRN Reason Stop Dose Admin Ketorolac Tromethamine 30 mg 11/29/22 19:24 11/29/22 19:47 Ketorolac Tromethamine 30 Mg/Ml Vial IM 11/29/22 19:25 30 mg ONCE ONE Administration Medical Decision Making Medical Decision Making MDM Narrative: 57 yo female presents to the ER for evaluation of right medial elbow pain, numbness and bicep pain s/p surgery on the elbow 6 weeks ago. Exam not c/w DVT. She has some sensory deficit over a patch of skin, ?nerve damage or nerve recovery from sugery. Given IM toradol with improvement in the pain. She is declining need for additional medications at this time. She will f/u with her surgeon tomorrow. Differential Diagnosis Differential Diagnoses: The differential diagnosis associated with the presentation includes post-op neuropathy, muscle strain, nerve damage, tendonitis Independent Interpretation I performed an independent interpretation of an: Plain X-Ray Interpretation: normal right elbow Radiology Impression Discussion of test interpretation with radiology: I have reviewed the radiologist's reading. Radiologist Impression: EXAMINATION: XR ELBOW, RIGHT CLINICAL INFORMATION: Pain? COMPARISON: None available.? TECHNIQUE: AP, lateral, and oblique views of the right elbow. FINDINGS: The bones and soft tissues are normal. No fracture or joint effusion. Alignment is anatomic. Joint spaces are maintained.? XR/XR elbow RT min 3V IMPRESSION: Normal right elbo External Record Review External record reviewed: Outpatient record, Prior outpatient labs and Prior outpatient radiology Tests considered The following testing was considered but not selected: us w/ doppler, but no clinical signs of dvt Prescription Management I considered prescription management with: Pain Medication Chronic Conditions Patient?s care impacted by: Other (chronic pain, fibromyalgia) Critical Care Time Critical Care Time Critical Care Time: No Discharge Plan Discharge Clinical Impression: Elbow pain Patient Disposition: Home, Self-Care Instructions: Arm Pain (ED) Additional Instructions: Follow up with your surgeon tomorrow Take tylenol 975 mg every 6 hours and ibuprofen 800 mg every 6-8 hours (take with food) If you develop new or worsening symptoms call 911 or come back to the ER for further evaluation. Prescriptions: No Action (DME) lancets [FreeStyle Lancets] 28 gauge misc See Rx Instructions .ROUTE .MEDSUPPLY Qty: 50 6RF Rx Instructions: Once a day albuterol sulfate 2.5 mg /3 mL (0.083 %) solution for nebulization 2.5 mg inhalation QID PRN (Reason: shortness of breath or wheezing) Qty: 180 0RF levothyroxine 125 mcg tablet 125 mcg PO DAILY 30 Days Qty: 30 3RF Flovent HFA 220 mcg/actuation HFA aerosol inhaler 1 puff PO BID Qty: 12 0RF aspirin [Adult Aspirin Regimen] 81 mg tablet,delayed release (DR/EC) 81 mg PO DAILY Qty: 90 3RF atorvastatin 40 mg tablet 40 mg PO BEDTIME Qty: 90 3RF alprazolam 1 mg tablet 1 mg PO BID PRN (Reason: anxiety) naloxone [Narcan] 4 mg/actuation spray,non-aerosol 4 mg intranasal Q2M PRN (Reason: opioid overdose) Qty: 2 1RF Rx Instructions: spray 1 dose into ONE nostril; alternate nostrils w each dose until help arrives Anoro Ellipta 62.5-25 mcg/actuation blister with device 1 ea inhalation DAILY Qty: 60 11RF albuterol sulfate 90 mcg/actuation HFA aerosol inhaler 2 puff inhalation Q4-6H PRN (Reason: shortness of breath or wheezing) Qty: 8.5 10RF amitriptyline 75 mg tablet 75 mg PO BEDTIME omeprazole 20 mg capsule,delayed release(DR/EC) 20 mg PO BID ropinirole 3 mg tablet 3 mg PO BEDTIME aripiprazole 2 mg tablet 2 mg PO DAILY duloxetine 60 mg capsule,delayed release(DR/EC) 60 mg PO DAILY Jardiance 25 mg tablet 25 mg PO DAILY metformin 500 mg tablet 500 mg PO BID (DME) nebulizers Misc See Rx Instructions .ROUTE Rx Instructions: As directed (DME) CPAP Machine/Device Device See Rx Instructions .ROUTE Rx Instructions: As directed Interventions: ED Discharge Assessment Last Done: 11/29/22 20:19 Discharge Date/Time: 11/29/22 20:21
[2022-11-29] MEDS: Ketorolac Tromethamine 30 MG/ML VIAL IM (19:47)
== END 2022-11-29 20:21 | disposition home or self-care (01) ==
PROVIDERS: Emergency Provider Emergency Medicine; PCP Internal Medicine
DX: M25.521 Pain in right elbow (principal); F17.210 Nicotine dependence, cigarettes, uncomplicated; E11.9 Type 2 diabetes mellitus without complications; I25.10 Atherosclerotic heart disease of native coronary artery without angina pectoris; Z71.6 Tobacco abuse counseling; Z79.899 Other long term (current) drug therapy; Z79.84 Long term (current) use of oral hypoglycemic drugs
CPT/HCPCS: 73080; 96372; 99283; 99284; J1885

== ENCOUNTER 2022-12-16 07:29 | Outpatient (REF) | payer OTHER, SELFPAY ==
--- NOTE | ~2022-12-16 | MM_ITS ---
EXAMINATION: MM SCREENING DIGITAL BREAST TOMOSYNTHESIS, BILATERAL CLINICAL INFORMATION: Screening. Asymptomatic. The lifetime risk of breast cancer based on the Tyrer-Cuzick Model is 16%. COMPARISON: Mammography: 06/02/2020, outside mammography 01/08/2018 ([place]). TECHNIQUE: Digital breast tomosynthesis is performed in both the craniocaudal and mediolateral oblique views along with computer-aided detection (CAD). Synthesized 2D images are generated from the tomosynthesis. FINDINGS: The breasts are heterogeneously dense, which may obscure small masses (ACR BI-RADS breast composition Category c). There are numerous bilateral regional punctate and some coarse calcifications in each breast similar in number and distribution from prior study. There are also scattered bilateral oil cyst with benign fine calcified rims. The axilla and skin contours are unremarkable. Left breast shows no significant mass and no architectural abnormality or developing density. Right breast has new oval equal attenuation mass with partly obscured margins anterior upper outer breast within 3 cm of nipple measuring approximately 1.6 x 1.2 cm. Patient will be recalled for additional imaging. MM/MM tomosynthesis screening BI IMPRESSION: Right: -Oval mass anterior upper outer quadrant with partly obscured margins 1.6 x 1.2 cm. Left: -No mammographic evidence of malignancy. ASSESSMENT: BI-RADS 0: Incomplete - Need Additional Imaging Evaluation RECOMMENDATION: 1. Additional views right breast for margins: spot CC, spot ML. 2. Targeted ultrasound right breast. 3. Radiology department staff will contact the patient for additional imaging. This patient's information was entered into a reminder system with a target due date for their next mammogram.
== END 2022-12-16 07:30 | disposition home or self-care (01) ==
LOC: HO.MAMMO 07:29
PROVIDERS: PCP Internal Medicine; Visit Provider Internal Medicine
DX: Z12.31 Encounter for screening mammogram for malignant neoplasm of breast (principal)
CPT/HCPCS: 77063; 77067

== ENCOUNTER 2022-12-20 11:07 | Emergency (ER) | payer OTHER, SELFPAY ==
--- NOTE | ~2022-12-20 | CT_ITS ---
EXAMINATION: CT ABDOMEN AND PELVIS WITH CONTRAST CLINICAL INFORMATION: Left lower quadrant pain COMPARISON: 01/18/2022 TECHNIQUE: Multidetector volumetric images were obtained from the superior aspect of the liver through the pubic symphysis following administration 85 mL of Omnipaque 350 intravenous contrast. Sagittal and coronal reformatted images were obtained on the technologist's workstation. Oral contrast: No This CT examination was performed using dose optimization techniques as appropriate, variously including the following: *Automated exposure control *Adjustment of mA and/or kV according to patient size (this includes techniques or standardized protocols for targeted exams where dose is matched to indication/reason for exam; i.e. extremities or head) *Use of iterative reconstruction technique DLP: 770 mGy-cm FINDINGS: LUNG BASES: The visualized lung bases are unremarkable. LIVER, GALLBLADDER, AND BILIARY TREE: The liver is enlarged measuring 18.9 cm in greatest length with decreased attenuation consistent with hepatic steatosis. No focal hepatic lesion or biliary ductal dilatation is present. Status post cholecystectomy. PANCREAS: Unremarkable. SPLEEN: Unremarkable. ADRENAL GLANDS: Unremarkable. KIDNEYS AND URETERS: The kidneys are normal in size, shape, and attenuation. No hydronephrosis, hydroureter, or calculi seen. No perinephric stranding. BLADDER: Unremarkable. GASTROINTESTINAL TRACT: A sigmoid anastomosis is present. Colonic diverticula are present without evidence of diverticulitis. The small and large bowel are otherwise unremarkable. The appendix is unremarkable. ABDOMINAL WALL: No significant hernia is appreciated. LYMPH NODES: Normal. VASCULAR: Unremarkable. PELVIC VISCERA: The uterus and adnexa are unremarkable. OSSEOUS STRUCTURES: Unremarkable. CT/CT abdomen pelvis w IV con IMPRESSION: 1. A cause for the patient's acute left lower quadrant pain has not been found. 2. Incidental note made of an enlarged fatty liver, sigmoid anastomosis without obstruction, colonic diverticula without diverticulitis and other findings described above. Fleischner guidelines were followed.
[2022-12-20 12:24] VITALS: BP 137/70; PULSE 76; RESP 18; TEMP 36.6; O2SAT 98; BMI 35.4
--- NOTE | 2022-12-20 12:26 | ED_ITS ---
HPI - General Adult General Chief complaint: Abdominal Pain Stated complaint: kiney pain/ diverticulitis Time Seen by Provider: 12/20/22 14:01 Source: patient Mode of arrival: ambulatory Limitations: no limitations History of Present Illness HPI narrative: 57-year-old female history of diverticulitis with bowel resection approximately 6 years ago at [facility] presents to the emergency department concerned that she is having another flare of this. She states the past 2 weeks she has been having nausea some loose stools and left lower quadrant abdominal pain. She has had this in the past and is taking Bentyl with relief. She states she is no longer getting any relief she denies fevers or chills denies chest pain cough or shortness of breath. Related Data Home Medications Medication Instructions Recorded Confirmed alprazolam 1 mg tablet 1 mg PO BID PRN anxiety 04/10/20 12/20/22 duloxetine 60 mg capsule,delayed 60 mg PO DAILY 08/18/21 12/20/22 release ropinirole 3 mg tablet 3 mg PO BEDTIME 10/06/21 12/20/22 amitriptyline 75 mg tablet 75 mg PO BEDTIME 11/28/21 12/20/22 omeprazole 20 mg capsule,delayed 20 mg PO BID 11/28/21 12/20/22 release aripiprazole 2 mg tablet 2 mg PO DAILY 02/16/22 12/20/22 empagliflozin 25 mg tablet 25 mg PO DAILY 04/11/22 12/20/22 (Jardiance) metformin 500 mg tablet 500 mg PO BID 04/26/22 12/20/22 CPAP (CPAP Machine/Device) 10/27/22 nebulizers 10/27/22 glipizide 2.5 mg tablet, extended 2.5 mg PO DAILY 12/20/22 12/20/22 release 24 hr hydrochlorothiazide 12.5 mg tablet 12.5 mg PO DAILY 12/20/22 12/20/22 ibuprofen 800 mg tablet 800 mg PO Q8H PRN Pain 12/20/22 12/20/22 meloxicam 15 mg tablet 15 mg PO DAILY 12/20/22 12/20/22 oxycodone 5 mg tablet 5 mg PO TID PRN Pain 12/20/22 12/20/22 Previous Rx's Medication Instructions Recorded lancets 28 gauge (FreeStyle #50 ea 11/16/20 Lancets) naloxone 4 mg/actuation nasal 4 mg intranasal Q2M PRN opioid 09/01/21 spray (Narcan) overdose #2 ea albuterol sulfate 2.5 mg/3 mL 2.5 mg (3 mL) inhalation QID PRN 09/19/21 (0.083 %) solution for nebulization shortness of breath or wheezing #180 mL levothyroxine 125 mcg tablet 125 mcg PO DAILY 30 days #30 tabs 01/23/22 albuterol sulfate 90 mcg/actuation 2 puff inhalation Q4-6H PRN 05/01/22 aerosol inhaler shortness of breath or wheezing #8.5 grams umeclidinium 62.5 mcg-vilanterol 1 ea inhalation DAILY #60 ea 05/01/22 25 mcg/actuation powdr for inhalation (Anoro Ellipta) aspirin 81 mg tablet,delayed 81 mg PO DAILY #90 tabs 06/29/22 release (Adult Aspirin Regimen) atorvastatin 40 mg tablet 40 mg PO BEDTIME #90 tabs 06/29/22 Flovent HFA 220 mcg/actuation 1 puff inhalation BID #12 grams 12/13/22 aerosol inhaler (fluticasone propionate) ondansetron 4 mg disintegrating 4 mg PO Q6H #14 tabs 12/20/22 tablet Allergies Allergy/AdvReac Type Severity Reaction Status Date / Time adhesive tape Allergy Severe BLISTERS Verified 12/20/22 12:24 Tetanus Vaccines and Toxoid Allergy Intermediate SWELLING, Verified 12/20/22 12:24 [TETANUS VACCINES & TOXOID] REDNESS surgical tape Allergy Severe hives/boils Uncoded 12/20/22 12:24 Review of Systems Review of Systems: Review of systems: General: Patient denies any fever chills recent illness or falls Musculoskeletal: Denies back pain or body aches or other injuries HEENT: denies headache, runny nose, ear pain Respiratory: denies shortness of breath, cough Cardiovascular: no chest pain or palpitations : denies dysuria, frequency Abdomen: diarrhea nausea no vomiting llq abdominal pain Extremities: no swelling, no pain Skin: no diaphoresis Yes all other systems are reviewed and are negative PMFSH Past Medical History Medical History Asthma-COPD overlap syndrome Fibromyalgia Michael's thyroiditis Hypertension Hypothyroidism Mixed irritable bowel syndrome Obesity (BMI 30-39.9) BOY (obstructive sleep apnea) Palpitations Prediabetes Pulmonary nodules Tobacco dependence Type 2 diabetes mellitus Vitamin D deficiency Surgical History H/O arthroscopy of right knee H/O excision of ganglion cyst H/O hand surgery H/O release of tendon H/O wrist surgery History of colon resection History of esophagogastroduodenoscopy (EGD) History of excision of mass (09/28/21) Hx of cholecystectomy Hx of colonoscopy Hx of lithotripsy Status post tendon repair Status post trigger finger release Family History Family History Father Myocardial infarction Hypertension Diabetes CVD (cardiovascular disease) Mother Restless leg syndrome Diabetes Paternal Aunt Breast cancer Uterine cancer Social History Social History Alcohol intake: former Patient Tobacco Use Status: Current everyday Tobacco user Cigarettes Per Day: 3 Years Smoked: 30 +/- Advance Directives: No Physical Exam ED Vital Signs: Vital Signs - 24 hr 12/20/22 12:24 12/20/22 14:56 Temperature 98 F Pulse Rate 76 Respiratory Rate 18 18 Blood Pressure 137/70 Pulse Oximetry 98 BMI result Body Mass Index 35.4 General: Well-appearing well-nourished in no signs of distress HEENT: Normocephalic atraumatic Neck: No signs of JVD, no masses no tenderness or lymphadenopathy Cardiovascular: Regular rate and rhythm Respiratory: Clear to auscultation bilaterally Abdomen: Soft llq tenderness does have a mass above some midline scarring from previous resection Extremities: Normal pedal pulses no signs of edema Skin: Dry warm no rashes Back: No tenderness full ROM Course Course Course Narrative: RME- 57-year-old female presents for evaluation of left lower quadrant abdominal pain with diarrhea, nausea. History of diverticulitis reports this feels similar. Plan for labs, CT scan of the abdomen pelvis. The patient reports symptoms started 2 weeks ago. Reevaluation(s) Reevaluation #1: 1631 Patient is feeling much better CT and labs are all okay. I will send home with PCP follow up. Medications Administered Discontinued Medications Generic Name Dose Route Start Last Admin Trade Name Freq PRN Reason Stop Dose Admin Sodium Chloride 1,000 mls @ 999 mls/hr 12/20/22 14:15 12/20/22 15:57 Ns IV 12/20/22 15:15 Infused .Q1H1M HOME Infusion Iohexol 100 ml 12/20/22 15:31 12/20/22 15:31 Iohexol 350 Mg/Ml 100 Ml Infus..Btl IV 12/20/22 15:32 85 ml ONCE ONE Administration Morphine Sulfate 4 mg 12/20/22 14:13 12/20/22 14:56 Morphine Sulfate 4 Mg/Ml Cartridge IVPUSH 12/20/22 14:14 4 mg ONCE ONE Administration Protocol Ondansetron HCl 4 mg 12/20/22 14:13 12/20/22 14:56 Ondansetron Hcl 4 Mg/2 Ml Vial IVPUSH 12/20/22 14:14 4 mg ONCE ONE Administration Medical Decision Making Medical Decision Making MDM Narrative: Concern for intraabdominal issue will need CT labs so far Differential Diagnosis Differential Diagnoses: The differential diagnosis associated with the presentation includes Hernia bowel obstruction, diverticulitis Admission/Observation Consideration of admission/observation: Escalation of care including admission/observation considered with normal labs and negative CT not warranted. Lab Data [facility] Lab Attestation statement: I reviewed the patient's lab results. 12/20/22 13:26 12/20/22 13:26 Labs: Lab Results 12/20/22 12/20/22 Range/Units 13:26 13:26 WBC 6.1 (4.8-10.8) X10*3/uL RBC 5.45 (4.20-5.50) X10*6/uL Hgb 14.6 (12.0-16.0) g/dl Hct 45.5 (37.0-47.0) % MCV 83.5 (80.0-98.0) fL MCH 26.8 L (27.0-33.0) pg MCHC 32.1 (31.0-35.0) g/dl RDW 15.9 (11.0-16.0) % Plt Count 283 D (160-400) X10*3/uL MPV 9.3 L (9.4-12.3) fL Immature Gran % (Auto) 0.2 (0.0-0.4) % Neut % (Auto) 45.3 (45-73) % Lymph % (Auto) 40.1 H (20-40) % [place] % (Auto) 6.4 (2-11) % Eos % (Auto) 7.2 H (0-4) % Baso % (Auto) 0.8 (0-2) % Lymph # (Auto) 2.5 (1.2-4.9) X10*3/uL [place] # (Auto) 0.4 (0.1-1.2) X10*3/uL Eos # (Auto) 0.4 (0.0-0.4) X10*3/uL Baso # (Auto) 0.1 (0.0-0.2) X10*3/uL Abs Immat Gran (auto) 0.01 (0.00-0.03) X10*3/uL Absolute Neuts (auto) 2.8 (2.0-8.3) x10*3/uL Absolute Nucleated RBC 0.000 (0.0-0.012) X10*3/uL Nucleated RBC % (auto) 0.0 (0.0-0.2) /100WBC Sodium 141 (135-145) mmol/L Potassium 4.1 (3.3-5.1) mmol/L Chloride 105 (96-108) mmol/L Carbon Dioxide 24 (22-29) mmol/L Anion Gap 16 (12-20) BUN 11 (9-16) mg/dL Creatinine 0.83 (0.5-1.4) mg/dL Estim Creat Clear Calc 95.1 Estimated GFR > 60 Random Glucose 146 H (60-115) mg/dL Calcium 10.0 (8.4-10.2) mg/dL Total Bilirubin 0.4 (0.0-1.0) mg/dL AST 17 (5-31) U/L ALT 25 (0-31) U/L Alkaline Phosphatase 104 (39-117) U/L Total Protein 7.3 (6.5-8.0) g/dL Albumin 4.1 (3.5-5.0) g/dL Lipase 28 (8-78) U/L Independent Interpretation I performed an independent interpretation of an: CT Scan Radiology Impression Discussion of test interpretation with radiology: I have reviewed the radiologist's reading. External Record Review External record reviewed: Inpatient record Has had 2 CT scans for flank pain over the past year as well as visits for abscess Discharge Plan Discharge Clinical Impression: Abdominal pain Patient Disposition: Home, Self-Care Instructions: Abdominal Pain (ED) Additional Instructions: Please call to follow up with your doctor. If you have any other concerns please return to the ED. Prescriptions: New ondansetron 4 mg tablet,disintegrating 4 mg PO Q6H Qty: 14 0RF No Action (DME) lancets [FreeStyle Lancets] 28 gauge misc See Rx Instructions .ROUTE .MEDSUPPLY Qty: 50 6RF Rx Instructions: Once a day albuterol sulfate 2.5 mg /3 mL (0.083 %) solution for nebulization 2.5 mg inhalation QID PRN (Reason: shortness of breath or wheezing) Qty: 180 0RF levothyroxine 125 mcg tablet 125 mcg PO DAILY 30 Days Qty: 30 3RF aspirin [Adult Aspirin Regimen] 81 mg tablet,delayed release (DR/EC) 81 mg PO DAILY Qty: 90 3RF atorvastatin 40 mg tablet 40 mg PO BEDTIME Qty: 90 3RF Flovent HFA 220 mcg/actuation HFA aerosol inhaler 1 puff inhalation BID Qty: 12 0RF ibuprofen 800 mg tablet 800 mg PO Q8H PRN (Reason: Pain) meloxicam 15 mg tablet 15 mg PO DAILY glipizide 2.5 mg tablet extended release 24hr 2.5 mg PO DAILY oxycodone 5 mg tablet 5 mg PO TID PRN (Reason: Pain) hydrochlorothiazide 12.5 mg tablet 12.5 mg PO DAILY alprazolam 1 mg tablet 1 mg PO BID PRN (Reason: anxiety) naloxone [Narcan] 4 mg/actuation spray,non-aerosol 4 mg intranasal Q2M PRN (Reason: opioid overdose) Qty: 2 1RF Rx Instructions: spray 1 dose into ONE nostril; alternate nostrils w each dose until help arrives Anoro Ellipta 62.5-25 mcg/actuation blister with device 1 ea inhalation DAILY Qty: 60 11RF albuterol sulfate 90 mcg/actuation HFA aerosol inhaler 2 puff inhalation Q4-6H PRN (Reason: shortness of breath or wheezing) Qty: 8.5 10RF amitriptyline 75 mg tablet 75 mg PO BEDTIME omeprazole 20 mg capsule,delayed release(DR/EC) 20 mg PO BID ropinirole 3 mg tablet 3 mg PO BEDTIME aripiprazole 2 mg tablet 2 mg PO DAILY duloxetine 60 mg capsule,delayed release(DR/EC) 60 mg PO DAILY Jardiance 25 mg tablet 25 mg PO DAILY metformin 500 mg tablet 500 mg PO BID (DME) nebulizers Misc See Rx Instructions .ROUTE Rx Instructions: As directed (DME) CPAP Machine/Device Device See Rx Instructions .ROUTE Rx Instructions: As directed
[2022-12-20 13:32] LABS: MANUAL DIFF FLAG NO
[2022-12-20 13:34] LABS: Basophils Absolute Auto 0.1 X10*3/uL (0.0-0.2); Basophils Percent Auto 0.8 % (0-2); Eosinophils Absolute Auto 0.4 X10*3/uL (0.0-0.4); Eosinophils Percent Auto 7.2 % (0-4); Hematocrit 45.5 % (37.0-47.0); Hemoglobin 14.6 g/dl (12.0-16.0); Imm Gran Abs Auto 0.01 X10*3/uL (0.00-0.03); Imm Gran Pct Auto 0.2 % (0.0-0.4); Lymphocytes Absolute Auto 2.5 X10*3/uL (1.2-4.9); Lymphocytes Percent Auto 40.1 % (20-40); Mean Corpuscular HGB Conc 32.1 g/dl (31.0-35.0); Mean Corpuscular Hemoglobin 26.8 pg (27.0-33.0); Mean Corpuscular Volume 83.5 fL (80.0-98.0); Mean Platelet Volume 9.3 fL (9.4-12.3); Monocytes Absolute Auto 0.4 X10*3/uL (0.1-1.2); Monocytes Percent Auto 6.4 % (2-11); Neutrophils Absolute Auto 2.8 x10*3/uL (2.0-8.3); Neutrophils Percent Auto 45.3 % (45-73); Platelet Count 283 X10*3/uL (160-400); Red Blood Count 5.45 X10*6/uL (4.20-5.50); Red Cell Distribution Width 15.9 % (11.0-16.0); White Blood Count 6.1 X10*3/uL (4.8-10.8)
[2022-12-20 13:53] LABS: Alanine Aminotransferase 25 U/L (0-31); Albumin Level 4.1 g/dL (3.5-5.0); Alkaline Phosphatase 104 U/L (39-117); Anion Gap 16 (12-20); Aspartate Amino Transferase 17 U/L (5-31); Bilirubin Total 0.4 mg/dL (0.0-1.0); Blood Urea Nitrogen 11 mg/dL (9-16); Carbon Dioxide 24 mmol/L (22-29); Chloride 105 mmol/L (96-108); Creatinine Clr Calc Pharmacy 95.1; Estimated Glomerular Filt Rate > 60; Glucose Random 146 mg/dL (60-115); Lipase 28 U/L (8-78); Potassium 4.1 mmol/L (3.3-5.1); Sodium 141 mmol/L (135-145); Total Protein 7.3 g/dL (6.5-8.0)
[2022-12-20 14:56] VITALS: RESP 18
[2022-12-20] MEDS: 0.9 % Sodium Chloride 1,000 ML 999 ML IV (14:56)
[2022-12-20] MEDS: Morphine Sulfate 4 MG/ML CARTRIDGE IVPUSH (14:56)
[2022-12-20] MEDS: ondansetron HCL 4 MG/2 ML VIAL IVPUSH (14:56)
--- NOTE | 2022-12-20 15:05 | PHA.MEDREC ---
Pharmacy Consult ? Medication Reconciliation Pharmacy has completed the medication reconciliation. Patient had list at home
[2022-12-20] MEDS: iohexoL 350 MG/ML 100 ML INFUS..BTL IV (15:31)
== END 2022-12-20 16:38 | disposition home or self-care (01) ==
PROVIDERS: Physician Assistant; Emergency Provider Student in an Organized Health Care Education/Training Program; PCP Internal Medicine
DX: R10.32 Left lower quadrant pain (principal); E11.9 Type 2 diabetes mellitus without complications; I10 Essential (primary) hypertension; Z79.891 Long term (current) use of opiate analgesic; Z79.899 Other long term (current) drug therapy; Z79.02 Long term (current) use of antithrombotics/antiplatelets; Z79.84 Long term (current) use of oral hypoglycemic drugs
CPT/HCPCS: 36415; 74177; 80053; 83690; 85025; 96361; 96374; 96375; 99284; J2270; J2405; Q9967

== ENCOUNTER 2023-01-01 12:16 | Outpatient (REF) | payer OTHER, SELFPAY ==
--- NOTE | ~2023-01-01 | MM_ITS ---
EXAMINATION: MM DIAGNOSTIC DIGITAL BREAST TOMOSYNTHESIS, RIGHT US DIAGNOSTIC ULTRASOUND BREAST, RIGHT CLINICAL INFORMATION: Recall from screening for oval mass anterior upper outer right breast with partly obscured margins, under 2 cm. TC score 16%. COMPARISON: Prior mammography exams including most recent 12/16/2022. TECHNIQUE: Digital breast tomosynthesis is performed. 2D images are generated from the tomosynthesis. The following views are obtained: Spot CC, spot ML. Ultrasound right breast is targeted to the upper outer quadrant using grayscale imaging and color Doppler without and with harmonics. FINDINGS: The breasts are heterogeneously dense, which may obscure small masses (ACR BI-RADS breast composition Category c). Additional views confirm a 1.5 cm smooth circumscribed mass upper outer right breast. Ultrasound demonstrates a simple cyst 10:00 position 4 cm from nipple measuring 1.3 cm. Margins are circumscribed. There is increased through-transmission of sound. No associated color flow. The finding corresponds to the mass on mammography. There are a few scattered small satellite cysts in the interrogated area measuring under 0.5 cm. No solid mass or architectural abnormality. Results are discussed with the patient at time of visit. MM/MM tomosynthesis added views R IMPRESSION: -Simple cyst upper outer quadrant right breast corresponding to recent mammography. ASSESSMENT: BI-RADS 2: Benign RECOMMENDATION: Routine annual mammography screening. This patient's information was entered into a reminder system with a target due date for their next mammogram.
== END 2023-01-01 12:17 | disposition home or self-care (01) ==
LOC: HO.MAMMO 12:16
PROVIDERS: PCP Internal Medicine; Visit Provider Internal Medicine
DX: N63.11 Unspecified lump in the right breast, upper outer quadrant (principal)
CPT/HCPCS: 76642; 77061; 77065

== ENCOUNTER 2023-02-02 08:43 | Outpatient (AMB) | payer OTHER, SELFPAY ==
[2023-02-02 08:52] VITALS: BP 132/68; PULSE 81; O2SAT 97; BMI 36.9
--- NOTE | 2023-02-02 08:52 | MHC.OFFVIS ---
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 She states that she has had asthma most of her life as a child and was based on the fact that she was a premature baby. The patient continued to smoke throughout her life. More recently she started developing worsening shortness of breath and cough. She did have a rescue inhaler that she could use as needed. Back in early March the patient started developing worsening shortness of breath in addition to cough and chest discomfort. She was evaluated in the ED and her D-dimer was elevated. She did have a CT scan of the chest PE protocol the ruled out any evidence of pulmonary emboli. However, she did have pulmonary nodules noted some calcified and some noncalcified. It appears that the right-sided nodule has grown slightly from 0.5 cm to 0.[address] last [address] scan. The patient also had evidence of chronic bronchitis and also mild degree of emphysema in the upper lung zones. Currently she is feeling better. She stop smoking about a week ago and she used using the Nicotrol inhaler as needed. Patient also had a DNA swab which was normal for the alpha-1 genotype,MM. 05/01/2022 the patient is here for a pulmonary follow-up visit the patient is still complaining some dyspnea symptoms with activity and cough. The cough tends to be productive in nature. Sepv-ia-vteylnqs severity. She still struggling with smoking although she is down to about 6 cigarettes a day. She is following closely with Cardiology regarding her coronary artery disease and a family history. The patient has a minute pulmonary nodules pick her last CT scan was over the summer demonstrating stable pulmonary nodules no new nodules noted. Therefore, since she is still smoking she is high risk for cancer will go ahead and assigned her to the lung cancer screening program sometime over the summer of 2022. 10/27/2022 the patient is here for pulmonary follow-up visit. She is having significant daytime drowsiness. Her Columbus score is elevated 1224. She was taking care of a sick family member. While she was sleeping with them they became very concerned because she would stop breathing. She was making the other family member very nervous about her health. The patient is also having concerns about heart disease. So therefore she wants to start using CPAP. The patient already has an old CPAP from before she has a diagnosis of sleep apnea. However, she is no longer active with [facility]. Will go ahead and request a home sleep study in order to address her obstructive sleep apnea on to get her active with the [facility] in order to get supplies for her CPAP. She also continues use respiratory medicine was good response. 02/02/2023 the patient is here for pulmonary follow-up visit. The patient did have a sleep study. The patient had a very mild degree of sleep apnea. Her Columbus score was 5.4. in addition to this the patient did have also some hypoxia for about 5 minutes. The the patient can consider positional therapy versus restarting her CPAP. In addition to that she continues with current respiratory therapy that is beer appears to be affecting beneficial. she continues to have sleep dyspnea on exertion. Mild in severity. Does improve with her current respiratory regimen. She would also benefit from pulmonary rehabilitation. The patient is also participating in the lung cancer screening program. Her next CT scans can be arcus of 2022. [facility] Medical History Asthma-COPD overlap syndrome Fibromyalgia Michael's thyroiditis Hypertension Hypothyroidism Mixed irritable bowel syndrome Obesity (BMI 30-39.9) BOY (obstructive sleep apnea) Palpitations Prediabetes Pulmonary nodules Tobacco dependence Type 2 diabetes mellitus Vitamin D deficiency Surgical History H/O arthroscopy of right knee H/O excision of ganglion cyst H/O hand surgery H/O release of tendon H/O wrist surgery History of colon resection History of esophagogastroduodenoscopy (EGD) History of excision of mass (09/28/21) Hx of cholecystectomy Hx of colonoscopy Hx of lithotripsy Status post tendon repair Status post trigger finger release Family History Father Myocardial infarction Hypertension Diabetes CVD (cardiovascular disease) Mother Restless leg syndrome Diabetes Paternal Aunt Breast cancer Uterine cancer Social History Alcohol intake: former Patient Tobacco Use Status: Current everyday Tobacco user Cigarettes Per Day: 3 Years Smoked: 30 +/- Review of Systems Const Reports daytime sleepiness, Reports fatigue, Reports headache(s), Reports snoring and Denies weakness ENT Denies dizziness, Reports headache(s), Denies lip swelling and Denies tongue swelling Card Denies chest pain, Denies chest pain with activity, Denies syncope, Denies rapid heart rate, Denies pedal edema, Denies edema, Denies leg edema, Denies lightheadedness, Denies palpitations, Denies dyspnea, Denies dyspnea on exertion and Denies orthopnea Resp Denies cough, Denies dyspnea, Denies dyspnea on exertion and Reports snoring GI Denies hematochezia and Denies change in stool character Musc Denies abnormal gait, Denies muscle weakness, Denies numbness, Denies radiating pain into limb and Denies tingling Neuro Denies abnormal gait, Denies dizziness, Denies syncope, Reports headache(s), Denies numbness, Denies tingling and Denies weakness Psych Denies no additional complaints Endo Reports fatigue and Denies palpitations Gerson/Lymph Denies easy bleeding and Denies lymphadenopathy Aller/Immun Denies lip swelling and Denies tongue swelling Physical Exam Vital Signs: Last Vital Signs Pulse 81 02/02/23 08:52 BP 132/68 02/02/23 08:52 Pulse Ox 97 02/02/23 08:52 Oxygen Delivery Method Room Air 02/02/23 08:52 BMI result Body Mass Index 36.9 Const General: alert HEENT Head: Yes atraumatic Neck Neck: Yes normal visual inspection, Yes full ROM and Yes no lymphadenopathy Chest Chest palpation & inspection: normal inspection of the chest Resp Auscultation: no wheezes and diminished lung sounds Cardio Rate: regular rate Rhythm: regular rhythm Heart sounds: S1 normal heart sound present and S2 normal heart sound present GI Palpation (GI): Soft to palpation and nontender Auscultation: normal bowel sounds Skin General skin exam: rashes and/or lesions noted Immunizations pneumoc 20-brad conj-dip cr(PF) Performing Provider: Jose Johnson MD Administered by: Ml Arita LPN on 02/02/23 09:46 Dose Route Admin Location Lot Number Expiration Date NDC Computer [employer]ware [employer] 0.5 mL IM Left Deltoid [id number] 05/15/24 0068-1721-19 [employer] VIS Given Date VIS Provided VIS Publication Date 02/02/23 Single Vaccine 22 Eligibility Eligibility Date Funding Source Not VFC Eligible 02/02/23 Private Assessment & Plan Assessment & Plan (1) BOY (obstructive sleep apnea): Code(s): G47.33 - Obstructive sleep apnea (adult) (pediatric) (2) Tobacco dependence: Code(s): F17.200 - Nicotine dependence, unspecified, uncomplicated (3) Pulmonary nodules: Comment: largest nodule 7mm nodule 11/2019, 05/04 was unchanged Code(s): R91.8 - Other nonspecific abnormal finding of lung field (4) Asthma-COPD overlap syndrome: Code(s): J44.9 - Chronic obstructive pulmonary disease, unspecified Plan pulmonary rehab continue Anoro daily continue Flovent HFA short-acting beta agonist as needed LDCT program for 02/2023 positional sleep therapy or restart PAP therapy Follow-up in 6 months Orders: Orders Pneumococcal 20 Immunization 02/02/23 J44.9 - Chronic obstructive pulmonary disease, unspecified Medications: Changed From albuterol sulfate 90 mcg/actuation 2 puffs inhalation Q4-6H PRN 8.5 grams 10RF shortness of breath or wheezing To albuterol sulfate 90 mcg/actuation 2 puffs inhalation Q4-6H PRN 8.5 grams 11RF shortness of breath or wheezing Refilled Flovent HFA 220 mcg/actuation (fluticasone propionate) 1 puff inhalation BID 12 grams 12RF NS Quality Reporting (2019) Adult ([facility] 138//) Smoking risk assessment performed?: Yes Patient Tobacco Use Status: Current everyday Tobacco user Coding Level of Care Code Est Pt Level 4 (09890) Diagnoses BOY (obstructive sleep apnea) G47.33 Tobacco dependence F17.200 Pulmonary nodules R91.8 Asthma-COPD overlap syndrome J44.9 Time Spent (min) 18
== END 2023-02-02 09:17 | disposition home or self-care (01) ==
PROVIDERS: PCP Internal Medicine; Visit Provider Hospitalist
DX: G47.33 Obstructive sleep apnea (adult) (pediatric) (principal); F17.200 Nicotine dependence, unspecified, uncomplicated; R91.8 Other nonspecific abnormal finding of lung field; J44.9 Chronic obstructive pulmonary disease, unspecified
CPT/HCPCS: 99214

== ENCOUNTER → 2023-02-02 08:43 | Outpatient (BNVA) | payer OTHER, SELFPAY | PROVIDERS: Visit Provider Hospitalist | DX: J44.9 Chronic obstructive pulmonary disease, unspecified (principal); G47.33 Obstructive sleep apnea (adult) (pediatric); R91.8 Other nonspecific abnormal finding of lung field; F17.200 Nicotine dependence, unspecified, uncomplicated; Z23 Encounter for immunization | CPT/HCPCS: 90471; 90677; 99212 ==

== ENCOUNTER 2023-02-02 09:36 | Outpatient (REF) | payer OTHER, SELFPAY ==
[2023-02-02 13:55] LABS: MANUAL DIFF FLAG NO
[2023-02-02 14:10] LABS: Basophils Absolute Auto 0.1 X10*3/uL (0.0-0.2); Basophils Percent Auto 1.1 % (0-2); Eosinophils Absolute Auto 0.5 X10*3/uL (0.0-0.4); Eosinophils Percent Auto 7.4 % (0-4); Hematocrit 48.2 % (37.0-47.0); Hemoglobin 15.2 g/dl (12.0-16.0); Imm Gran Abs Auto 0.01 X10*3/uL (0.00-0.03); Imm Gran Pct Auto 0.2 % (0.0-0.4); Lymphocytes Absolute Auto 2.5 X10*3/uL (1.2-4.9); Lymphocytes Percent Auto 38.7 % (20-40); Mean Corpuscular HGB Conc 31.5 g/dl (31.0-35.0); Mean Corpuscular Hemoglobin 27.1 pg (27.0-33.0); Mean Corpuscular Volume 86.1 fL (80.0-98.0); Monocytes Absolute Auto 0.4 X10*3/uL (0.1-1.2); Neutrophils Absolute Auto 3.1 x10*3/uL (2.0-8.3); Neutrophils Percent Auto 46.6 % (45-73); Platelet Count 349 X10*3/uL (160-400); Red Cell Distribution Width 15.6 % (11.0-16.0); White Blood Count 6.5 X10*3/uL (4.8-10.8)
[2023-02-02 14:28] LABS: Cholesterol 203 mg/dL; HDL Cholesterol 40 mg/dL; LDL Cholesterol Calculated 114 mg/dl; Triglycerides 247 mg/dL
[2023-02-02 14:42] LABS: TSH reflex Free T4 0.79 uIU/mL (0.32-4.0)
== END 2023-02-02 09:37 | disposition home or self-care (01) ==
LOC: HO.HHCL 09:36
PROVIDERS: Internal Medicine Cardiovascular Disease; Visit Provider Internal Medicine
DX: Z00.00 Encounter for general adult medical examination without abnormal findings (principal); I25.10 Atherosclerotic heart disease of native coronary artery without angina pectoris; E03.9 Hypothyroidism, unspecified; E06.3 Autoimmune thyroiditis; J44.9 Chronic obstructive pulmonary disease, unspecified; G47.30 Sleep apnea, unspecified; G47.33 Obstructive sleep apnea (adult) (pediatric); F17.200 Nicotine dependence, unspecified, uncomplicated; R91.8 Other nonspecific abnormal finding of lung field; Z23 Encounter for immunization
CPT/HCPCS: 36415; 80061; 84443; 85025; 90471; 90677; 99212

== ENCOUNTER 2023-02-27 09:34 | Outpatient (REF) | payer OTHER, SELFPAY ==
--- NOTE | ~2023-02-27 | US_ITS ---
EXAMINATION: US VENOUS ULTRASOUND WITH DOPPLER LOWER EXTREMITY, LEFT CLINICAL INFORMATION: Left lower extremity pain and edema. COMPARISON: Venous ultrasound dated 02/11/2020. TECHNIQUE: Ultrasound of the deep veins is performed from the hip to the calf with compression sonography and color and pulse Doppler assessment. Spectral analysis with color-flow imaging is performed. FINDINGS: LEFT SIDE: GREATER SAPHENOUS VEIN: The left saphenofemoral junction diameter is 1.0 cm. There is no reflux. The left proximal thigh diameter is 0.5 cm. There is no reflux. The left mid thigh diameter is 0.4 cm. The reflux time is 316 ms. The left above-knee diameter is 0.5 cm. There is no reflux. The left at-knee diameter is 0.5 cm. There is no reflux. The left below-knee diameter is 0.3 cm. There is no reflux. The left mid calf diameter is 0.3 cm. There is no reflux. The left ankle diameter is 0.3 cm. There is no reflux. MEDIAL ACCESSORY GREATER SAPHENOUS VEIN: The left saphenofemoral junction diameter is 0.5 cm. There is no reflux LESSER SAPHENOUS VEIN: The left saphenopopliteal junction diameter is 0.6 cm. There is no reflux. The left mid calf diameter is 0.3 cm. There is no reflux. The left distal calf diameter is 0.3 cm. There is no reflux. LEFT DEEP VENOUS SYSTEM: There is no deep venous thrombosis or reflux on the left. US/US venous duplex LE LT IMPRESSION: There is mild, nonhemodynamically significant reflux of the above-knee segment of the left greater saphenous vein. There is, however, no hemodynamically significant reflux seen of the left greater or lesser saphenous veins.
== END 2023-02-27 09:35 | disposition home or self-care (01) ==
LOC: HO.US 09:34
PROVIDERS: PCP Internal Medicine; Visit Provider Internal Medicine
DX: I87.2 Venous insufficiency (chronic) (peripheral) (principal)
CPT/HCPCS: 93971

== ENCOUNTER 2023-04-26 08:45 | Outpatient (AMB) | payer OTHER, SELFPAY ==
--- NOTE | 2023-04-26 09:05 | A.OFFVIS_ITS ---
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 Pt states she has a soft tissue mass/ fluid build up on her left calf. States this started right before Covid. Pt states she has swelling and pain. Accompanied by: Self / Same As Patient Allergies adhesive tape Allergy (Severe, Verified 04/26/23 09:10) BLISTERS Tetanus Vaccines and Toxoid [TETANUS VACCINES & TOXOID] Allergy (Intermediate, Verified 04/26/23 09:10) SWELLING, REDNESS surgical tape Allergy (Severe, Uncoded 04/26/23 09:10) hives/boils HPI TELEX OPERATOR HHC Referral for VV HPI Details Very pleasant 57-year-old female presents for evaluation regarding left lower extremity pain. Upon discussion with her she denies any significant swelling but has this rib left pretibial lump that has been quite painful for her. She reports that it is pinpoint tenderness there. Not associated with any movement. She of note has been seen by a pain management with a diagnosis of fibromyalgia. In addition had been seen by General surgery for an infected gerson aceous cyst. She now presents for evaluation of this left lower extremity. Of note she has had noninvasive venous reflux testing performed by the primary care team FORMERLY [facility] Medical History Vitamin D deficiency Mixed irritable bowel syndrome Michael's thyroiditis Fibromyalgia Type 2 diabetes mellitus Obesity (BMI 30-39.9) Prediabetes Hypothyroidism BOY (obstructive sleep apnea) Hypertension Palpitations Tobacco dependence Pulmonary nodules Asthma-COPD overlap syndrome Surgical History History of excision of mass (09/28/21) Status post tendon repair History of esophagogastroduodenoscopy (EGD) H/O hand surgery Hx of colonoscopy Hx of lithotripsy Status post trigger finger release History of colon resection H/O excision of ganglion cyst H/O arthroscopy of right knee H/O wrist surgery H/O release of tendon Hx of cholecystectomy Family History Father Myocardial infarction Hypertension Diabetes CVD (cardiovascular disease) Mother Restless leg syndrome Diabetes Paternal Aunt Breast cancer Uterine cancer Social History Alcohol intake: former Patient Tobacco Use Status: Current everyday Tobacco user Cigarettes Per Day: 3 Years Smoked: 30 +/- Review of Systems Const All systems reviewed & are unremarkable except as noted in HPI and below Reports no additional complaints ENT Reports Normal hearing present Card Denies chest pain, Denies chest pain at rest, Denies chest pain with activity and Denies pedal edema Resp Denies cough GI Denies abdominal pain Musc Denies abnormal gait, Denies muscle cramps and Denies radiating pain into limb Skin/Breast Denies skin ulcer and Denies wounds Neuro Reports Normal hearing present and Denies abnormal gait Psych Reports no additional complaints Physical Exam Vital Signs: BMI result Body Mass Index 36.8 Const General: cooperative, healthy appearing and comfortable Orientation/consciousness: oriented to person, oriented to place and oriented to time HEENT Head: Yes normal to inspection Neck Neck: Yes normal visual inspection Carotids: no bruits Chest Chest palpation & inspection: normal inspection of the chest Resp Effort & Inspection: normal respiratory effort and able to speak in complete sentences Auscultation: clear to auscultation bilaterally, no crackles, no rales, no rhonchi and no wheezes Cardio Rate: regular rate Rhythm: regular rhythm Heart sounds: S1 normal heart sound present and S2 normal heart sound present Bruits: no carotid bruits Peripheral pulses: Peripheral pulses 2+ throughout GI Inspection: Yes normal to inspection Skin Other: Left pretibial swelling - palpable dorsalis pedis pulses. Wounds: no wounds Hair: normal Neuro General: oriented to person, oriented to place and oriented to time Cranial nerves: Yes CN's II-XII intact bilaterally and Yes Normal hearing present Cognition (Neuro): normal cognition Motor exam (neuro): 5/5 motor strength present throughout Extrem Other: venous exam: No significant superficial varicosities or spider telangiectasias, minimal edema General: No clubbing, No cyanosis and No edema Psych Appearance: grossly normal Mental Status: mental status grossly normal Speech and movement: Normal speech and movement present Results Reviewed Results Reviewed: Brief summary of venous insufficiency testing is as follows: left great saphenous vein: negative - reflux velocity low end diameter small left small saphenous vein: negative left accessory vein: none present Please note there is no evidence of any venous aneurysms or significant tortuos ity Bedside ultrasound performed no evidence of any significant varicosities in the area of pain Left tib-fib x-ray dated 12/19/2020 was negative for any significant findings. Assessment & Plan Assessment & Plan (1) Mass of left lower extremity: Code(s): R22.42 - Localized swelling, mass and lump, left lower limb Plan: In short there is concern of a left lower extremity mass. It is unusual that there is pinpoint tenderness at that location. Will plan for CT scan of the left lower extremity. Will have patient follow-up after testing. Should this hospitalist nocturnist physician to be a mass may require referral to General surgery. Thank you for allowing us to assist in her care Orders: Orders CT lower leg LT wo IV con Today R22.42 - Localized swelling, mass and lump, left lower limb Quality Reporting (2019) Adult ([facility] 13809/06/68) Smoking risk assessment performed?: Yes Patient Tobacco Use Status: Current everyday Tobacco user Coding Level of Care Code New Pt Level 4 (19179) Diagnoses Mass of left lower extremity R22.42
[2023-04-26 09:06] VITALS: BMI 36.8
== END 2023-04-26 09:58 | disposition home or self-care (01) ==
PROVIDERS: PCP Internal Medicine; Visit Provider Surgery Vascular Surgery
DX: R22.42 Localized swelling, mass and lump, left lower limb (principal)
CPT/HCPCS: 99203

== ENCOUNTER → 2023-04-26 08:45 | Outpatient (BNVA) | payer OTHER, SELFPAY | PROVIDERS: PCP Internal Medicine; Visit Provider Surgery Vascular Surgery ==

== ENCOUNTER 2023-06-13 07:21 | Outpatient (REF) | payer OTHER, SELFPAY ==
--- NOTE | ~2023-06-13 | CT_ITS ---
EXAMINATION: CT LEG WITHOUT CONTRAST, LEFT LOWER CLINICAL INFORMATION: Left pretibial mass. COMPARISON: Left lower extremity venous ultrasound dated 02/27/2023. Left knee radiographs dated 12/28/2020. TECHNIQUE: Contiguous axial CT images of the left lower leg were obtained without contrast. Sagittal and coronal reformats were provided and reviewed. This CT examination was performed using dose optimization techniques as appropriate, variously including the following: *Automated exposure control *Adjustment of mA and/or kV according to patient size (this includes techniques or standardized protocols for targeted exams where dose is matched to indication/reason for exam; i.e. extremities or head) *Use of iterative reconstruction technique DLP: 301 mGy-cm FINDINGS: No acute fracture or dislocation. No joint space narrowing or marginal osteophytes. No concerning lytic or blastic osseous lesion. Mild soft tissue stranding along the anterior aspect of the tibial diaphysis. No discrete fluid collection or significant soft tissue mass. No joint effusion. The visualized muscles and tendons are grossly intact, however, evaluation is limited on CT examination. CT/CT lower leg LT wo IV con IMPRESSION: 1. Mild soft tissue stranding along the anterior aspect of the tibial diaphysis. No discrete fluid collection or soft tissue mass. 2. No acute osseous abnormality.
== END 2023-06-13 07:22 | disposition home or self-care (01) ==
LOC: HO.CT 07:21
PROVIDERS: PCP Internal Medicine; Visit Provider Surgery Vascular Surgery
DX: R22.42 Localized swelling, mass and lump, left lower limb (principal)
CPT/HCPCS: 73700

== ENCOUNTER 2023-06-20 09:25 | Outpatient (AMB) | payer OTHER, SELFPAY ==
[2023-06-20 10:02] VITALS: BP 140/72; PULSE 80; BMI 35.5
--- NOTE | 2023-06-20 10:02 | A.OFFVIS_ITS ---
Intake Vital Signs 06/20/23 10:02 Height 5 ft 8 in Weight 233 lb 3.985 oz BMI 35.5 BP 140/72 H Blood Pressure Location Lt brachial Position Sitting Pulse 80 Pulse Source Pulse Oximeter Intake Visit Reasons: follow up Intake Note: f/ up patient have mild chest pain since yesterday Hunter Required: No Accompanied by: Self / Same As Patient Allergies adhesive tape Allergy (Severe, Verified 06/20/23 10:04) BLISTERS Tetanus Vaccines and Toxoid [TETANUS VACCINES & TOXOID] Allergy (Intermediate, Verified 06/20/23 10:04) SWELLING, REDNESS surgical tape Allergy (Severe, Uncoded 04/26/23 09:10) hives/boils Medication List - Last Reconciled 06/20/23 by Vikas Bañuelos MD albuterol sulfate 2.5 mg (3 mL) inhalation QID PRN albuterol sulfate 90 mcg/actuation 2 puffs inhalation Q4-6H PRN alprazolam 1 mg PO BID PRN amitriptyline 75 mg PO BEDTIME aripiprazole 2 mg PO DAILY CPAP (CPAP Machine/Device) As directed dulaglutide (Trulicity) 1.5 mg subcut QWEEK duloxetine 60 mg PO DAILY ezetimibe 10 mg PO DAILY Flovent HFA 220 mcg/actuation (fluticasone propionate) 1 puff inhalation BID NS glipizide ER 2.5 mg PO DAILY hydrochlorothiazide 12.5 mg PO DAILY ibuprofen 800 mg PO Q8H PRN lancets (FreeStyle Lancets) Once a day levothyroxine 125 mcg PO DAILY 30 days naloxone 4 mg/actuation (Narcan) 4 mg intranasal Q2M PRN nebulizers As directed omeprazole 20 mg PO BID ondansetron 4 mg PO Q6H oxycodone 5 mg PO TID PRN ropinirole 3 mg PO BEDTIME umeclidinium-vilanterol 62.5-25 mcg/actuation (Anoro Ellipta) 1 ea PO DAILY HPI HPI Comments History of Present Illness Details 57-year-old female here for follow-up. She was seen for dyspnea on exertion and palpitations. 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 She has been on levothyroxine at this stage. She is diabetic and has COPD. She has been complaining of shortness of breath with exertion as well as palpitations. She is saying she gets palpitations every day. She also had her Apple watch with her and was showing episodes of atrial fibrillation recorded by the watch . Rhythm strips actually showed sinus rhythm and there was no atrial fibrillation I have reassured her. She has dyspnea on exertion which was previously thought to be due to COPD. She is still smoking few cigarettes a day. I have advised her to stop smoking. She has no exertional chest discomfort. Strong family history of coronary disease with her father dying at age 62 after 3 heart attacks. She was referred for exercise stress test but developed moderate to severe dyspnea the stress test was limited. Subsequent to that she was referred for are coronary CTA. This showed left arm Lint coronary system with normal left main and scattered mild calcifications in proximal to mid segment of the LAD with less than 50% stenosis. Om 1 had less than 50% mild stenosis. PDA was felt to be small in size and patent and some areas could not be seen clearly but overall was felt to be normal. She also had a Holter monitor which did not show any arrhythmia. She is returning and is trying to walk more and lose weight. She still gets short of breath. She is smoking couple of cigarettes a day. No chest discomfort. Occasionally feels palpitations with activity. 06/20/2023: She returns for follow-up. She has been doing well and exercising regularly. Off and on she has felt some pressure-like feeling in his chest lasting for few seconds. She had some symptoms before she came to the office also. We did an EKG which showed nonspecific ST changes. She previously had an exercise stress test which was limited by dyspnea due to underlying COPD and lung disease. She continues to smoke 6 cigarettes per day. We discussed about smoking cessation. She also had background history of Michael's thyroiditis which is stable at this point. Blood pressure is mildly elevated. [facility] Medical History Vitamin D deficiency Mixed irritable bowel syndrome Michael's thyroiditis Fibromyalgia Type 2 diabetes mellitus Obesity (BMI 30-39.9) Prediabetes Hypothyroidism BOY (obstructive sleep apnea) Hypertension Palpitations Tobacco dependence Pulmonary nodules Asthma-COPD overlap syndrome Surgical History History of excision of mass (09/28/21) Status post tendon repair History of esophagogastroduodenoscopy (EGD) H/O hand surgery Hx of colonoscopy Hx of lithotripsy Status post trigger finger release History of colon resection H/O excision of ganglion cyst H/O arthroscopy of right knee H/O wrist surgery H/O release of tendon Hx of cholecystectomy Family History Father Myocardial infarction Hypertension Diabetes CVD (cardiovascular disease) Mother Restless leg syndrome Diabetes Paternal Aunt Breast cancer Uterine cancer Social History Alcohol intake: former Patient Tobacco Use Status: Current everyday Tobacco user Cigarettes Per Day: 3 Years Smoked: 30 +/- Review of Systems Const Reports chills, Reports fatigue, Reports fever(s), Reports frequent falls, Reports weakness, Reports weight gain and Reports weight loss ENT Reports dizziness Card Reports chest pain, Reports leg edema, Reports lightheadedness, Reports palpitations, Reports dyspnea and Reports dyspnea on exertion Resp Reports cough, Reports dyspnea and Reports dyspnea on exertion GI Reports hematochezia Musc Reports abnormal gait, Reports muscle weakness, Reports numbness, Reports radiating pain into limb and Reports tingling Neuro Reports abnormal gait, Reports dizziness, Reports frequent falls, Reports numbness, Reports tingling and Reports weakness Endo Reports fatigue and Reports palpitations Physical Exam Vital Signs: Last Vital Signs Pulse 80 06/20/23 10:02 BP 140/72 H 06/20/23 10:02 BMI result Body Mass Index 35.5 GENERAL APPEARANCE: in no acute distress, pleasant. NECK: no carotid bruit, no jugular venous distention. SKIN: no suspicious lesions, warm and dry. HEART: no murmurs, regular rate and rhythm. LUNGS: clear to auscultation bilaterally. ABDOMEN: soft, nontender. EXTREMITIES: mild edema. PERIPHERAL PULSES: equal. NEUROLOGIC: No gross deficits, AAO X 3 Office Procedures EKG Details: Sinus rhythm 79 beats per minute, normal axis, nonspecific ST changes, QTC 444 milliseconds. [id number], Complete Assessment & Plan Assessment & Plan (1) RIVER (dyspnea on exertion): Code(s): R06.09 - Other forms of dyspnea (2) Abnormal stress ECG with treadmill: Code(s): R94.39 - Abnormal result of other cardiovascular function study (3) Hypertension: Code(s): I10 - Essential (primary) hypertension Plan Pleasant 57 year female who is here for follow-up. She has background history of hypothyroidism due to Michael's thyroiditis. She is stable at this point. She had palpitations previously which were due to hyperthyroidism. She has hypertension and blood pressure is mildly elevated. She is complaining of some pressure-like feeling off and on. She previously had a stress test which was limited due to dyspnea. We discussed about further assessment given the fact that her thyroid issues are stable at this point. We have decided to a coronary CTA which we will arrange. She is taking ezetimibe which was added on top atorvastatin but she thought that this is a replacement and she has stopped using atorvastatin. I have advised her to resume the atorvastatin. We will repeat lipid panel in few months. Follow-up in few months. Thank you for allowing me to participate in the care of your patient. Please feel free to contact me if you have any questions. Orders: Orders CT Cardiac Coronary Angio Today R94.39 - Abnormal result of other cardiovascular function study Medications: New atorvastatin 40 mg PO DAILY 60 tabs 3RF E11.9 - Type 2 diabetes mellitus without complications Changed From ondansetron 4 mg PO Q6H 14 tabs 0RF To ondansetron 4 mg PO Q6H Quality Reporting (2019) Adult ([facility] 138/09/06/68) Smoking risk assessment performed?: Yes Patient Tobacco Use Status: Current everyday Tobacco user Coding Level of Care Code Est Pt Level 4 (95864) Diagnoses RIVER (dyspnea on exertion) R06.09 Abnormal stress ECG with treadmill R94.39 Hypertension I10 CPT Codes EKG - CPT: 71717-[id number], Complete ([id number])
== END 2023-06-20 10:44 | disposition home or self-care (01) ==
PROVIDERS: PCP Internal Medicine; Visit Provider Internal Medicine Cardiovascular Disease
DX: R06.09 Other forms of dyspnea (principal); R94.39 Abnormal result of other cardiovascular function study; I10 Essential (primary) hypertension
CPT/HCPCS: 93010; 99214

== ENCOUNTER → 2023-06-20 09:25 | Outpatient (BNVA) | payer OTHER, SELFPAY | PROVIDERS: PCP Internal Medicine; Visit Provider Internal Medicine Cardiovascular Disease | DX: R06.09 Other forms of dyspnea (principal); R94.39 Abnormal result of other cardiovascular function study; I10 Essential (primary) hypertension | CPT/HCPCS: 93005; 99212 ==

== ENCOUNTER 2023-06-28 09:17 | Outpatient (AMB) | payer OTHER, SELFPAY ==
--- NOTE | 2023-06-28 09:19 | MHC.OFFVIS ---
Intake Intake Visit Reasons: CT Left LE for pretibial Mass Intake Note: pt here for a fallow CT left LE for pretibial Mass .PT states that her swelling on her left leg is getting worst by the day and she has a lot of pain She states that she is on 5mg oxycodone 3 times a day but it only helps a little Allergies adhesive tape Allergy (Severe, Verified 06/28/23 09:23) BLISTERS Tetanus Vaccines and Toxoid [TETANUS VACCINES & TOXOID] Allergy (Intermediate, Verified 06/28/23 09:23) SWELLING, REDNESS surgical tape Allergy (Severe, Uncoded 04/26/23 09:10) hives/boils HPI CT Left LE for pretibial Mass HPI Details Very pleasant 57-year-old female presents for evaluation regarding left lower extremity swelling pain. She has this pretibial swelling that is been of concern for her. She had been seen by General surgery regarding an infected sebaceous cyst. He had been sent over for venous insufficiency testing which had shown to be negative. At her last visit there was concern that the swelling may have some hardness to it. She underwent a CT scan of that leg she now presents for routine follow-up. [facility] Medical History Vitamin D deficiency Mixed irritable bowel syndrome Michael's thyroiditis Fibromyalgia Type 2 diabetes mellitus Obesity (BMI 30-39.9) Prediabetes Hypothyroidism BOY (obstructive sleep apnea) Hypertension Palpitations Tobacco dependence Pulmonary nodules Asthma-COPD overlap syndrome Surgical History History of excision of mass (09/28/21) Status post tendon repair History of esophagogastroduodenoscopy (EGD) H/O hand surgery Hx of colonoscopy Hx of lithotripsy Status post trigger finger release History of colon resection H/O excision of ganglion cyst H/O arthroscopy of right knee H/O wrist surgery H/O release of tendon Hx of cholecystectomy Family History Father Myocardial infarction Hypertension Diabetes CVD (cardiovascular disease) Mother Restless leg syndrome Diabetes Paternal Aunt Breast cancer Uterine cancer Social History Alcohol intake: former Patient Tobacco Use Status: Current everyday Tobacco user Cigarettes Per Day: 3 Years Smoked: 30 +/- Review of Systems Const Reports as per HPI ENT Reports no additional complaints Card Denies chest pain, Denies chest pain at rest and Denies chest pain with activity Resp Denies chest congestion and Denies cough GI Reports no additional complaints Musc Details: pain over varicosities, aching of lower extremities, swelling, cramping, heaviness and tiredness, itching Denies abnormal gait Skin/Breast Reports pruritus and Denies wounds Neuro Reports no additional complaints and Denies abnormal gait Psych Denies no additional complaints Physical Exam Const General: cooperative, healthy appearing and comfortable Orientation/consciousness: oriented to person, oriented to place and oriented to time Neck Carotids: no bruits Chest Chest palpation & inspection: normal inspection of the chest and normal palpation of entire chest wall Resp Effort & Inspection: normal respiratory effort and able to speak in complete sentences Cardio Rate: regular rate Heart sounds: S1 normal heart sound present and S2 normal heart sound present Peripheral pulses: Peripheral pulses 2+ throughout GI Inspection: Yes normal to inspection Skin Other: +2 edema, large rope-like varicosities greater than 4 mm CEAP Classification C4 - skin color changes Ep - Etiology Primary As - superficial veins P - reflux General skin exam: dry skin Neuro General: oriented to person, oriented to place and oriented to time Extrem Other: Right in cm: Thigh 71 Knee 54 Calf 49.5 Ankle 28.5 Left in cm: Thigh 73 Knee 55 Calf 51 Ankle 29 Hip/abdomen 109 Right lower extremity: full ROM, normal capillary refill and edema Left lower extremity: full ROM, normal capillary refill and edema Psych Mental Status: mental status grossly normal Results Reviewed Results Reviewed: CT scan dated 06/13/2023 demonstrates no concern of a discrete mass Assessment & Plan Assessment & Plan (1) Mass of left lower extremity: Code(s): R22.42 - Localized swelling, mass and lump, left lower limb Plan: CT scan was negative for any discrete mass. Will plan for lymphedema treatment (2) Lymphedema: Code(s): I89.0 - Lymphedema, not elsewhere classified Plan: In short the patient has late on sent lymphedema. The patient has been on conservative treatment for at least 3 months with minimal relief. Patient has tried 30 mm of mercury compression garments, elevation, exercise healthy diet and doing manual says self MLD to the best of their ability for over 4 weeks but with no significant relief. She has been compliant with the program but has provided minimal relief. In addition on physical we are noticing hyperpigmentation, lymphorrhea, and hyperplasia. It appears that she has stage 2 lymphedema. Patient has completed multiple forms of conservative therapy yet significant symptoms remain. Patient requires the use of a pneumatic compression device which we will assist in trying to have the patient obtain them. A pneumatic compression device will help reduce swelling and other lymphedema comorbidities. Thank you for allowing us to assist in this patient's care. Quality Reporting (2019) Adult ([facility] 138/09/06/68) Smoking risk assessment performed?: Yes Patient Tobacco Use Status: Current everyday Tobacco user Coding Level of Care Code Est Pt Level 4 (11256) Diagnoses Mass of left lower extremity R22.42 Lymphedema I89.0
== END 2023-06-28 09:52 | disposition home or self-care (01) ==
PROVIDERS: PCP Internal Medicine; Visit Provider Surgery Vascular Surgery
DX: I89.0 Lymphedema, not elsewhere classified (principal); R22.42 Localized swelling, mass and lump, left lower limb
CPT/HCPCS: 99214

== ENCOUNTER → 2023-06-28 09:17 | Outpatient (BNVA) | payer OTHER, SELFPAY | PROVIDERS: PCP Internal Medicine; Visit Provider Surgery Vascular Surgery | DX: I89.0 Lymphedema, not elsewhere classified (principal); R22.42 Localized swelling, mass and lump, left lower limb | CPT/HCPCS: 99212 ==

== ENCOUNTER 2023-08-10 08:24 | Outpatient (AMB) | payer OTHER, SELFPAY ==
[2023-08-10 08:48] VITALS: PULSE 86; O2SAT 96; BMI 35.1
--- NOTE | 2023-08-10 08:48 | A.OFFVIS_ITS ---
Intake Vital Signs 08/10/23 08:48 Height 5 ft 8 in Weight 231 lb 2 oz BMI 35.1 Pulse 86 Pulse Source Pulse Oximeter Pulse Oximetry (%) 96 Oxygen Delivery Method Room Air Intake Visit Reasons: copd Endoscopy Technican Required: No Allergies adhesive tape Allergy (Severe, Verified 08/10/23 08:49) BLISTERS Tetanus Vaccines and Toxoid [TETANUS VACCINES & TOXOID] Allergy (Intermediate, Verified 08/10/23 08:49) SWELLING, REDNESS surgical tape Allergy (Severe, Uncoded 08/10/23 08:49) hives/boils HPI HPI Comments History of Present Illness Details The patient is a 57-year-old woman with a known history of asthma in addition to tobacco dependency. She states that she has had asthma most of her life as a child and was based on the fact that she was a premature baby. The patient continued to smoke throughout her life. More recently she started developing worsening shortness of breath and cough. She did have a rescue inhaler that she could use as needed. Back in early March the patient started developing worsening shortness of breath in addition to cough and chest discomfort. She was evaluated in the ED and her D-dimer was elevated. She did have a CT scan of the chest PE protocol the ruled out any evidence of pulmonary emboli. However, she did have pulmonary nodules noted some calcified and some noncalcified. It appears that the right-sided nodule has grown slightly from 0.5 cm to 0.[address] scan. The patient also had evidence of chronic bronchitis and also mild degree of emphysema in the upper lung zones. Currently she is feeling better. She stop smoking about a week ago and she used using the Nicotrol inhaler as needed. Patient also had a DNA swab which was normal for the alpha-1 genotype,MM. 05/01/2022 the patient is here for a pul monary follow-up visit the patient is still complaining some dyspnea symptoms with activity and cough. The cough tends to be productive in nature. Iemx-wl-clolkfjr severity. She still struggling with smoking although she is down to about 6 cigarettes a day. She is following closely with Cardiology regarding her coronary artery disease and a family history. The patient has a minute pulmonary nodules pick her last CT scan was over the summer demonstrating stable pulmonary nodules no new nodules noted. Therefore, since she is still smoking she is high risk for cancer will go ahead and assigned her to the lung cancer screening program sometime over the summer of 2022. 10/27/2022 the patient is here for pulmigue arias follow-up visit. She is having significant daytime drowsiness. Her Vermillion score is elevated 12/24. She was taking care of a sick family member. While she was sleeping with them they became very concerned because she would stop breathing. She was making the other family member very nervous about her health. The patient is also having concerns about heart disease. So therefore she wants to start using CPAP. The patient already has an old CPAP from before she has a diagnosis of sleep apnea. However, she is no longer active with [employer]. Will go ahead and request a home sleep study in order to address her obstructive sleep apnea on to get her active with the [employer] in order to get supplies for her CPAP. She also continues use respiratory medicine was good response. 02/02/2023 the patient is here for pulmonary follow-up visit. The patient did have a sleep study. The patient had a very mild degree of sleep apnea. Her Vermillion score was 5.4. in addition to this the patient did have also some hypoxia for about 5 minutes. The the patient can consider positional therapy versus restarting her CPAP. In addition to that she continues with current resp iratory therapy that is beer appears to be affecting beneficial. she continues to have sleep dyspnea on exertion. Mild in severity. Does improve with her current respiratory regimen. She would also benefit from pulmonary rehabilitation. The patient is also participating in the lung cancer screening program. Her next CT scans can be arc of 2022. 08/10/2023 the patient is here for a pulkate riversary follow-up visit. She is complaining of significant dyspnea on exertion. In with minimal activity she is getting very winded. She has a hard time going up a flight of stairs. She does need to go up a flight of stairs to get to her home. She usually leads to stopping between. Denies any chest pressures. Sometimes she does have palpitations any increased heart rate even at rest. She has been using Anoro that has been effective for. She does feel some chest tightness and wheezing. Mild in severity. We did look at her CT scan of the chest she had back in 2021. She does have pulmonary nodules that had not changed from 2020. Still the patient has had risk and does require to have a CT scan at this time. If the nodules are stable in her next CT scan no additional imaging studies may be warranted. In the meantime we did go for walking oximetry. The patient did become significantly dyspneic with a dyspnea score of 8/10. Heart rate was initially not increasing staying about 100 to throughout the ambulation. However, then when she has had down the heart rate quickly jumped to 130 beats per minute. Seems to be narrow complex and regular. We did look at her coronary artery CT scan. Appeared that she had a mild single-vessel disease of the obtuse marginal branch. I am concerned with the potential cardiac component so therefore I will go ahead and order a stress echo. In the meantime will also follow-up with PFTs and CT scan to follow-up pulmonary nodules. Will optimize respiratory regimen by switching her from the Anoro to Trelegy. If the patient has any worsening symptoms or increased palpitations then she should quickly be evaluated. FORMERLY [facility], [facility] Medical History (Updated 08/10/23 @ 09:24 by Jose Johnson MD) Dyspnea Vitamin D deficiency Mixed irritable bowel syndrome Michael's thyroiditis Fibromyalgia Type 2 diabetes mellitus Obesity (BMI 30-39.9) Prediabetes Hypothyroidism BOY (obstructive sleep apnea) Hypertension Palpitations Tobacco dependence Pulmonary nodules Asthma-COPD overlap syndrome Surgical History History of excision of mass (09/28/21) Status post tendon repair History of esophagogastroduodenoscopy (EGD) H/O hand surgery Hx of colonoscopy Hx of lithotripsy Status post trigger finger release History of colon resection H/O excision of ganglion cyst H/O arthroscopy of right knee H/O wrist surgery H/O release of tendon Hx of cholecystectomy Family History Father Myocardial infarction Hypertension Diabetes CVD (cardiovascular disease) Mother Restless leg syndrome Diabetes Paternal Aunt Breast cancer Uterine cancer Social History Alcohol intake: former Patient Tobacco Use Status: Current everyday Tobacco user Cigarettes Per Day: 3 Years Smoked: 30 +/- Review of Systems Const Reports daytime sleepiness, Reports fatigue, Reports headache(s), Reports snoring and Denies weakness ENT Denies dizziness, Reports headache(s), Denies lip swelling and Denies tongue swelling Card Denies chest pain, Denies chest pain with activity, Denies syncope, Denies rapid heart rate, Denies pedal edema, Denies edema, Denies leg edema, Denies lightheadedness, Reports palpitations, Denies dyspnea, Reports dyspnea on exertion and Denies orthopnea Resp Denies cough, Denies dyspnea, Reports dyspnea on exertion, Reports snoring and Reports wheezing GI Denies hematochezia and Denies change in stool character Musc Denies abnormal gait, Denies muscle weakness, Denies numbness, Denies radiating pain into limb and Denies tingling Neuro Denies abnormal gait, Denies dizziness, Denies syncope, Reports headache(s), Denies numbness, Denies tingling and Denies weakness Psych Denies no additional complaints Endo Reports fatigue and Reports palpitations Gerson/Lymph Denies easy bleeding and Denies lymphadenopathy Aller/Immun Denies lip swelling, Denies tongue swelling and Reports wheezing Physical Exam Vital Signs: Last Vital Signs Pulse 86 08/10/23 08:48 Pulse Ox 96 08/10/23 08:48 Oxygen Delivery Method Room Air 08/10/23 08:48 BMI result Body Mass Index 35.1 Const General: alert HEENT Head: Yes atraumatic Neck Neck: Yes normal visual inspection, Yes full ROM and Yes no lymphadenopathy Chest Chest palpation & inspection: normal inspection of the chest Resp Effort & Inspection: normal respiratory effort Auscultation: wheezes and diminished lung sounds Cardio Rate: regular rate and tachycardic (sinus tach after exercise 130) Rhythm: regular rhythm Heart sounds: S1 normal heart sound present and S2 normal heart sound present GI Palpation (GI): Soft to palpation and nontender Auscultation: normal bowel sounds Skin General skin exam: rashes and/or lesions noted Assessment & Plan Assessment & Plan (1) Dyspnea: Code(s): R06.00 - Dyspnea, unspecified Qualifiers: Dyspnea type: dyspnea on exertion Qualified Code(s): R06.09 - Other forms of dyspnea (2) BOY (obstructive sleep apnea): Comment: very mild Code(s): G47.33 - Obstructive sleep apnea (adult) (pediatric) (3) Tobacco dependence: Code(s): F17.200 - Nicotine dependence, unspecified, uncomplicated (4) Pulmonary nodules: Comment: largest nodule 7mm nodule 11/2019, 05/04 was unchanged Code(s): R91.8 - Other nonspecific abnormal finding of lung field (5) Asthma-COPD overlap syndrome: Code(s): J44.9 - Chronic obstructive pulmonary disease, unspecified Plan stop Anoro daily and start Trelegy 200 short-acting beta agonist as needed CT chest PFTs positional sleep therapy or restart PAP therapy Follow-up in 2 months Orders: Orders CT chest wo IV con 4 Weeks R91.8 - Other nonspecific abnormal finding of lung field PFT pulmonary function test 6 Weeks J44.9 - Chronic obstructive pulmonary disease, unspecified CA echo stress exercise Today R06.00 - Dyspnea, unspecified Medications: New wiiabwnlhsr-fkxckffog-mtllyhis 200-62.5-25 mcg (Trelegy Ellipta) 1 inh inhalation DAILY 30 days 60 ea 12RF Refilled albuterol sulfate 2.5 mg (3 mL) inhalation QID PRN 180 mL 11RF shortness of breath or wheezing J44.9 - Chronic obstructive pulmonary disease, unspecified Quality Reporting (2019) Adult ([facility] 138//) Smoking risk assessment performed?: Yes Patient Tobacco Use Status: Current everyday Tobacco user Coding Level of Care Code Est Pt Level 4 (19723) Diagnoses Dyspnea on exertion R06.09 Dyspnea type: dyspnea on exertion BOY (obstructive sleep apnea) G47.33 Tobacco dependence F17.200 Pulmonary nodules R91.8 Asthma-COPD overlap syndrome J44.9 Time Spent (min) 18
== END 2023-08-10 09:15 | disposition home or self-care (01) ==
PROVIDERS: PCP Internal Medicine; Visit Provider Hospitalist
DX: R06.09 Other forms of dyspnea (principal); G47.33 Obstructive sleep apnea (adult) (pediatric); F17.200 Nicotine dependence, unspecified, uncomplicated; R91.8 Other nonspecific abnormal finding of lung field; J44.9 Chronic obstructive pulmonary disease, unspecified
CPT/HCPCS: 99214

== ENCOUNTER → 2023-08-10 08:24 | Outpatient (BNVA) | payer OTHER, SELFPAY | PROVIDERS: PCP Internal Medicine; Visit Provider Hospitalist | DX: J44.9 Chronic obstructive pulmonary disease, unspecified (principal); R06.09 Other forms of dyspnea; R91.8 Other nonspecific abnormal finding of lung field; G47.33 Obstructive sleep apnea (adult) (pediatric) | CPT/HCPCS: 99212 ==

== ENCOUNTER 2023-08-27 10:24 | Outpatient (REF) | payer OTHER, SELFPAY ==
[2023-08-27 12:40] LABS: Creatinine Urine 59.53 mg/dL; Microalbumin Urine < 5.0 mg/L
== END 2023-08-27 10:25 | disposition home or self-care (01) ==
LOC: HO.HHCL 10:24
PROVIDERS: Visit Provider Internal Medicine
DX: E11.65 Type 2 diabetes mellitus with hyperglycemia (principal)
CPT/HCPCS: 82043; 82570

== ENCOUNTER 2023-09-07 07:03 | Outpatient (REF) | payer OTHER, SELFPAY ==
--- NOTE | ~2023-09-07 | CT_ITS ---
EXAMINATION: CT CHEST WITHOUT CONTRAST CLINICAL INFORMATION: Abnormal lung findings COMPARISON: 02/15/2022 TECHNIQUE: Multidetector volumetric CT imaging of the chest was done. Axial MIP volume rendering provided. Sagittal and coronal reformatted images were obtained. This CT examination was performed using dose optimization techniques as appropriate, variously including the following: *Automated exposure control *Adjustment of mA and/or kV according to patient size (this includes techniques or standardized protocols for targeted exams where dose is matched to indication/reason for exam; i.e. extremities or head) *Use of iterative reconstruction technique DLP: 206 mGy-cm FINDINGS: LUNGS: Central airways are patent. Left upper lobe 3 mm nodule (6:209) and 3 mm nodule (6:166) are unchanged since 2021. Right middle lobe 3 mm nodule (6:269), unchanged. Right lower lobe 9 mm nodule adjacent to the major fissure may reflect intrapulmonary lymph node. Right upper lobe 3 mm nodule (6:99), unchanged. No new or enlarging pulmonary nodule. PLEURA: No pleural effusion. MEDIASTINUM: No cardiomegaly. Aorta and pulmonary artery are normal in caliber. No mediastinal adenopathy. Lack of IV contrast limits evaluation for hilar adenopathy. CORONARY ARTERY CALCIFICATION: Coronary artery calcification is present. CHEST WALL/AXILLA: No axillary or internal mammary lymphadenopathy. UPPER ABDOMEN: Status post cholecystectomy. OSSEOUS STRUCTURES: Unremarkable. CT/CT chest wo IV con IMPRESSION: Bilateral pulmonary nodules measuring up to 9 mm are unchanged. No new or enlarging pulmonary nodule. According to the UPDATED 2017 Fleischner Society recommendations, the advised followup imaging for multiple solid nodules, the largest measuring 6 mm or greater, is: LOW RISK PATIENT: CT at 3-6 months, then consider CT at 18-24 months. HIGH RISK PATIENT: CT at 3-6 months, then at 18-24 months.
== END 2023-09-07 07:04 | disposition home or self-care (01) ==
LOC: HO.CT 07:03
PROVIDERS: PCP Internal Medicine; Visit Provider Hospitalist
DX: R91.8 Other nonspecific abnormal finding of lung field (principal)
CPT/HCPCS: 71250

== ENCOUNTER → 2023-09-10 12:25 | Outpatient (REF) | payer OTHER, SELFPAY ==
--- NOTE | 2023-09-10 12:28 | CA_ITS ---
Acquisition Time: 2023-09-10 12:44:06 Total Exercise Time: 00:03:00 Test Indications: Dyspnea Medications: SEE H Protocol: JAYME Max HR: 166 BPM 101% of Pred: 163 BPM Max BP: 206/070 mmHG Max Work Load: 4.6 METS Exercise stress test exercise 3 min of Jayme protocol achieving 92% MPHR, with moderate to severe SOB, no chest discomfort, with isolated PVCs and PACs and atrial runs, with exaggerated response to exercise, with hotizontal depression V4, and scooping V5-V6. Echo images obtained by tech at rest and immediately post peak exercise. Definiy contrast used.Test reviewed with Dr. Sparks. Referred By: Jose Johnson Overread By: Martina Main
== END ==
LOC: HO.CARD 12:25
PROVIDERS: PCP Internal Medicine; Visit Provider Hospitalist
DX: R06.00 Dyspnea, unspecified (principal)
CPT/HCPCS: 93350; Q9957

== ENCOUNTER → 2023-09-10 12:28 | Outpatient (BNV) | payer OTHER, SELFPAY | PROVIDERS: PCP Internal Medicine; Visit Provider Nurse Practitioner | DX: R06.02 Shortness of breath (principal) | CPT/HCPCS: 93016; 93018; 93350; 93352 ==

== ENCOUNTER 2023-09-15 | Outpatient (REF) | payer OTHER, SELFPAY ==
--- NOTE | 2023-09-15 09:19 | PFT_ITS ---
Flows: FEV1: 65 % of predicted at 1.89 L FVC: 74 % of predicted at 2.76 L FEV1/FVC: 68 % Bronchodilator response: Absent Volumes: No lung volume measurements available secondary to a technical issue. Diffusion capacity: Mildly decreased, corrects to normal after adjustment for alveolar ventilation. Impression: Moderate obstructive ventilatory defect with no bronchodilator response. No lung volume measurements available secondary to a technical issue. Decreased diffusion capacity suggests emphysema. MTDD
[2023-09-15 11:23] VITALS: PULSE 92; RESP 16; O2SAT 96
== END 2023-09-15 00:01 | disposition home or self-care (01) ==
LOC: HO.RESP
PROVIDERS: PCP Internal Medicine; Visit Provider Hospitalist
DX: J44.9 Chronic obstructive pulmonary disease, unspecified (principal)
CPT/HCPCS: 94010; 94640; 94727; 94729

== ENCOUNTER → 2023-09-15 09:19 | Outpatient (BNV) | payer OTHER, SELFPAY | PROVIDERS: PCP Internal Medicine; Visit Provider Internal Medicine Pulmonary Disease | DX: J44.9 Chronic obstructive pulmonary disease, unspecified (principal) | CPT/HCPCS: 94060; 94729 ==

== ENCOUNTER 2023-10-12 08:48 | Outpatient (AMB) | payer MEDICARE, SELFPAY ==
--- NOTE | 2023-10-12 09:02 | A.OFFVIS_ITS ---
Intake Vital Signs 10/12/23 09:03 Height 5 ft 8 in Weight 229 lb 15.074 oz BMI 35.0 Pulse 82 Pulse Source Pulse Oximeter Pulse Oximetry (%) 96 Oxygen Delivery Method Room Air Intake Visit Reasons: copd Radiologic Therapist Required: No Allergies adhesive tape Allergy (Severe, Verified 10/12/23 09:05) BLISTERS Tetanus Vaccines and Toxoid [TETANUS VACCINES & TOXOID] Allergy (Intermediate, Verified 10/12/23 09:05) SWELLING, REDNESS surgical tape Allergy (Severe, Uncoded 10/12/23 09:05) hives/boils HPI HPI Comments History of Present Illness Details The patient is a 58-year-old woman with a known history of asthma in addition to tobacco dependency. She states that she has had asthma most of her life as a child and was based on the fact that she was a premature baby. The patient continued to smoke throughout her life. More recently she started developing worsening shortness of breath and cough. She did have a rescue inhaler that she could use as needed. Back in early March the patient started developing worsening shortness of breath in addition to cough and chest discomfort. She was evaluated in the ED and her D-dimer was elevated. She did have a CT scan of the chest PE protocol the ruled out any evidence of pulmonary emboli. However, she did have pulmonary nodules noted some calcified and some noncalcified. It appears that the right-sided nodule has grown slightly from 0.5 cm to 0.[address] scan. The patient also had evidence of chronic bronchitis and also mild degree of emphysema in the upper lung zones. Currently she is feeling better. She stop smoking about a week ago and she used using the Nicotrol inhaler as needed. Patient also had a DNA swab which was normal for the alpha-1 genotype,MM. 02/02/2023 the patient is here for pulmon juana follow-up visit. The patient did have a sleep study. The patient had a very mild degree of sleep apnea. Her Bejou score was 5.4. in addition to this the patient did have also some hypoxia for about 5 minutes. The the patient can consider positional therapy versus restarting her CPAP. In addition to that she continues with current respiratory therapy that is beer appears to be affecting beneficial. she continues to have sleep dyspnea on exertion. Mild in severity. Does improve with her current respiratory regimen. She would also benefit from pulmonary rehabilitation. The patient is also participating in the lung cancer screening program. Her next CT scans can be arcus of 2022. 08/10/2023 the patient is here for a pulm onary follow-up visit. She is complaining of significant dyspnea on exertion. In with minimal activity she is getting very winded. She has a hard time going up a flight of stairs. She does need to go up a flight of stairs to get to her home. She usually leads to stopping between. Denies any chest pressures. Sometimes she does have palpitations any increased heart rate even at rest. She has been using Anoro that has been effective for. She does feel some chest tightness and wheezing. Mild in severity. We did look at her CT scan of the chest she had back in 2021. She does have pulmonary nodules that had not changed from 2020. Still the patient has had risk and does require to have a CT scan at this time. If the nodules are stable in her next CT scan no additional imaging studies may be warranted. In the meantime we did go for walking oximetry. The patient did become significantly dyspneic with a dyspnea score of 8/10. Heart rate was initially not increasing staying about 100 to throughout the ambulation. However, then when she has had down the heart rate quickly jumped to 130 beats per minute. Seems to be narrow complex and regular. We did look at her coronary artery CT scan. Appeared that she had a mild single-vessel disease of the obtuse marginal branch. I am concerned with the potential cardiac component so therefore I will go ahead and order a stress echo. In the meantime will also follow-up with PFTs and CT scan to follow-up pulmonary nodules. Will optimize respiratory regimen by switching her from the Anoro to Trelegy. If the patient has any worsening symptoms or increased palpitations then she should quickly be evaluated. 10/12/2023 the patient is here for a pulm onary follow-up visit. The patient cristo tran has been complaining of increasing dyspnea on exertion. Ozdh-tz-qrsivbam severity. He feels like he has been getting worse the Trelegy inhaler has been helpful. She does have a rescue inhaler she does not typically use. The patient will benefit from pulmonary rehabilitation at this time. She unfortunately continues to smoke although she is cut down significantly down to about 2-3 cigarettes a day. We talked about smoking cessation whenever she is ready completely she should come up with a quit date. We did look at her last CT scan of the chest. Her pulmonary nodules appear to be stable. The patient also underwent pulmonary function studies demonstrating moderate COPD although it appears that is improved when compared to a few years back suggesting that the medications are helping. The patient also had a abnormal stress test. She will be following up with a senior devops engineer soon. If Cardiology feels that she is doing okay she should start to pulmonary rehabilitation. FORMERLY [facility], [facility] Medical History (Updated 10/12/23 @ 09:27 by Jose Johnson MD) Pulmonary hypertension Dyspnea Vitamin D deficiency Mixed irritable bowel syndrome Michael's thyroiditis Fibromyalgia Type 2 diabetes mellitus Obesity (BMI 30-39.9) Prediabetes Hypothyroidism BOY (obstructive sleep apnea) Hypertension Palpitations Tobacco dependence Pulmonary nodules Asthma-COPD overlap syndrome Surgical History History of excision of mass (09/28/21) Status post tendon repair History of esophagogastroduodenoscopy (EGD) H/O hand surgery Hx of colonoscopy Hx of lithotripsy Status post trigger finger release History of colon resection H/O excision of ganglion cyst H/O arthroscopy of right knee H/O wrist surgery H/O release of tendon Hx of cholecystectomy Family History Father Myocardial infarction Hypertension Diabetes CVD (cardiovascular disease) Mother Restless leg syndrome Diabetes Paternal Aunt Breast cancer Uterine cancer Social History Alcohol intake: former Patient Tobacco Use Status: Current everyday Tobacco user Cigarettes Per Day: 3 Years Smoked: 30 +/- Review of Systems Const Reports daytime sleepiness, Reports fatigue, Reports headache(s), Reports snoring and Denies weakness ENT Denies dizziness, Reports headache(s), Denies lip swelling and Denies tongue swelling Card Denies chest pain, Denies chest pain with activity, Denies syncope, Denies rapid heart rate, Denies pedal edema, Denies edema, Denies leg edema, Denies lightheadedness, Reports palpitations, Denies dyspnea, Reports dyspnea on exertion and Denies orthopnea Resp Denies cough, Denies dyspnea, Reports dyspnea on exertion, Reports snoring and Reports wheezing GI Denies hematochezia and Denies change in stool character Musc Denies abnormal gait, Denies muscle weakness, Denies numbness, Denies radiating pain into limb and Denies tingling Neuro Denies abnormal gait, Denies dizziness, Denies syncope, Reports headache(s), Denies numbness, Denies tingling and Denies weakness Psych Denies no additional complaints Endo Reports fatigue and Reports palpitations Gerson/Lymph Denies easy bleeding and Denies lymphadenopathy Aller/Immun Denies lip swelling, Denies tongue swelling and Reports wheezing Physical Exam Vital Signs: Last Vital Signs Pulse 82 10/12/23 09:03 Pulse Ox 96 10/12/23 09:03 Oxygen Delivery Method Room Air 10/12/23 09:03 BMI result Body Mass Index 35.0 Const General: alert HEENT Head: Yes atraumatic Neck Neck: Yes normal visual inspection, Yes full ROM and Yes no lymphadenopathy Chest Chest palpation & inspection: normal inspection of the chest Resp Effort & Inspection: normal respiratory effort Auscultation: wheezes and diminished lung sounds Cardio Rate: regular rate and tachycardic (sinus tach after exercise 130) Rhythm: regular rhythm Heart sounds: S1 normal heart sound present and S2 normal heart sound present GI Palpation (GI): Soft to palpation and nontender Auscultation: normal bowel sounds Skin General skin exam: rashes and/or lesions noted Assessment & Plan Assessment & Plan (1) Dyspnea: Code(s): R06.00 - Dyspnea, unspecified Qualifiers: Dyspnea type: dyspnea on exertion Qualified Code(s): R06.09 - Other forms of dyspnea (2) BOY (obstructive sleep apnea): Comment: very mild Code(s): G47.33 - Obstructive sleep apnea (adult) (pediatric) (3) Tobacco dependence: Code(s): F17.200 - Nicotine dependence, unspecified, uncomplicated (4) Pulmonary nodules: Comment: largest nodule 7mm nodule 11/2019, 05/04 was unchanged Code(s): R91.8 - Other nonspecific abnormal finding of lung field (5) Asthma-COPD overlap syndrome: Code(s): J44.9 - Chronic obstructive pulmonary disease, unspecified (6) Pulmonary hypertension: Code(s): I27.20 - Pulmonary hypertension, unspecified Plan continue Trelegy 200 short-acting beta agonist as needed start Pulmonary rehab once her cardiac evaluation is completed Lasix x 3 days overnight oximetry Follow-up in 3-4 months Orders: Orders Overnight Pulse Oximetry 10/12/23 Medications: New furosemide (Lasix) 20 mg PO DAILY 7 days 7 tabs 0RF Quality Reporting (2019) Adult ([facility] 138/09/06/68) Smoking risk assessment performed?: Yes Patient Tobacco Use Status: Current everyday Tobacco user Coding Level of Care Code Est Pt Level 4 (84671) Diagnoses Dyspnea on exertion R06.09 Dyspnea type: dyspnea on exertion BOY (obstructive sleep apnea) G47.33 Tobacco dependence F17.200 Pulmonary nodules R91.8 Asthma-COPD overlap syndrome J44.9 Pulmonary hypertension I27.20 Time Spent (min) 17
[2023-10-12 09:03] VITALS: PULSE 82; O2SAT 96; BMI 35.0
== END 2023-10-12 09:35 | disposition home or self-care (01) ==
PROVIDERS: PCP Internal Medicine; Visit Provider Hospitalist
DX: R06.09 Other forms of dyspnea (principal); G47.33 Obstructive sleep apnea (adult) (pediatric); F17.200 Nicotine dependence, unspecified, uncomplicated; R91.8 Other nonspecific abnormal finding of lung field; J44.9 Chronic obstructive pulmonary disease, unspecified; I27.20 Pulmonary hypertension, unspecified
CPT/HCPCS: 99214

== ENCOUNTER → 2023-10-12 08:48 | Outpatient (BNVA) | payer MEDICARE, SELFPAY | PROVIDERS: PCP Internal Medicine; Visit Provider Hospitalist | DX: J44.9 Chronic obstructive pulmonary disease, unspecified (principal); G47.33 Obstructive sleep apnea (adult) (pediatric); R91.8 Other nonspecific abnormal finding of lung field; R06.09 Other forms of dyspnea; I27.20 Pulmonary hypertension, unspecified; F17.210 Nicotine dependence, cigarettes, uncomplicated | CPT/HCPCS: 99212 ==

== ENCOUNTER 2023-11-07 09:15 | Outpatient (AMB) | payer OTHER, SELFPAY ==
[2023-11-07 09:45] VITALS: BP 140/70; BMI 36.6
--- NOTE | 2023-11-07 09:45 | MHC.OFFVIS ---
Vital Signs 11/07/23 09:45 Height 5 ft 8 in Weight 240 lb 11.916 oz BMI 36.6 BP 140/70 H Blood Pressure Location Lt brachial Position Sitting Pulse Source Pulse Oximeter Intake Visit Reasons: 4 mth f/up Intake Note: pt states that she its doing fine. 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 Accompanied by: Self / Same As Patient Allergies adhesive tape Allergy (Severe, Verified 10/12/23 09:05) BLISTERS Tetanus Vaccines and Toxoid [TETANUS VACCINES & TOXOID] Allergy (Intermediate, Verified 10/12/23 09:05) SWELLING, REDNESS surgical tape Allergy (Severe, Uncoded 10/12/23 09:05) hives/boils Medication List - Last Reconciled 11/07/23 by Vikas Bañuelos MD albuterol sulfate 90 mcg/actuation 2 puffs inhalation Q4-6H PRN albuterol sulfate 2.5 mg (3 mL) inhalation QID PRN alprazolam 0.5 mg PO QID PRN amitriptyline 75 mg PO BEDTIME aripiprazole 2 mg PO DAILY atorvastatin 40 mg PO DAILY CPAP (CPAP Machine/Device) As directed dulaglutide (Trulicity) mg subcut duloxetine 60 mg PO DAILY ezetimibe 10 mg PO DAILY ukbnbeksdhw-enqxxsxqe-hhjfimvu 200-62.5-25 mcg (Trelegy Ellipta) 1 inh inhalation DAILY 30 days hydrochlorothiazide 12.5 mg PO DAILY ibuprofen 800 mg PO Q8H PRN lancets (FreeStyle Lancets) Once a day levothyroxine 125 mcg PO DAILY 30 days naloxone 4 mg/actuation (Narcan) 4 mg intranasal Q2M PRN nebulizers As directed nebulizers As directed omeprazole 20 mg PO BID oxycodone 5 mg PO TID PRN ropinirole 3 mg PO BEDTIME HPI Comments Details: 58-year-old female here for follow-up. She was seen for dyspnea on exertion and palpitations. 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 She has been on levothyroxine at this stage. She is diabetic and has COPD. She has been complaining of shortness of breath with exertion as well as palpitations. She is saying she gets palpitations every day. She also had her Apple watch with her and was showing episodes of atrial fibrillation recorded by the watch . Rhythm strips actually showed sinus rhythm and there was no atrial fibrillation I have reassured her. She has dyspnea on exertion which was previously thought to be due to COPD. She is still smoking few cigarettes a day. I have advised her to stop smoking. She has no exertional chest discomfort. Strong family history of coronary disease with her father dying at age 62 after 3 heart attacks. She was referred for exercise stress test but developed moderate to severe dyspnea the stress test was limited. Subsequent to that she was referred for are coronary CTA. This showed left arm Lint coronary system with normal left main and scattered mild calcifications in proximal to mid segment of the LAD with less than 50% stenosis. Om 1 had less than 50% mild stenosis. PDA was felt to be small in size and patent and some areas could not be seen clearly but overall was felt to be normal. She also had a Holter monitor which did not show any arrhythmia. She is returning and is trying to walk more and lose weight. She still gets short of breath. She is smoking couple of cigarettes a day. No chest discomfort. Occasionally feels palpitations with activity. 06/20/2023: She returns for follow-up. She has been doing well and exercising regularly. Off and on she has felt some pressure-like feeling in his chest lasting for few seconds. She had some symptoms before she came to the office also. We did an EKG which showed nonspecific ST changes. She previously had an exercise stress test which was limited by dyspnea due to underlying COPD and lung disease. She continues to smoke 6 cigarettes per day. We discussed about smoking cessation. She also had background history of Michael's thyroiditis which is stable at this point. Blood pressure is mildly elevated. 11/07/23: She returns for follow-up. She previously had coronary CTA performed with chest discomfort which showed less than 50% lad and less than 50% circumflex stenosis. Blood pressure is mildly elevated. She had a chest CT performed through pulmonology which showed coronary calcifications. She would subsequently underwent stress echocardiogram. She was able to exercise for 3 minutes on Santana protocol achieving 4.6 metabolic equivalents with a maximum blood pressure of 2/0 6 x 70. She had moderate to severe shortness of breath with some horizontal ST depressions in V4. Echo images were essentially normal. She did have exercise induced mild pulmonary hypertension likely due to underlying diastolic dysfunction. She was getting some Lasix for lower extremity edema and was saying that her breathing was better while taking it. Her blood pressure today is 140/70. She already is taking hydrochlorothiazide 12.5 mg daily. She gets some migraine headaches and has taken nitroglycerin before with reasonable tolerance. [facility]LY [facility] Medical History (Updated 10/12/23 @ 09:27 by Jose Johnson MD) Pulmonary hypertension Dyspnea Vitamin D deficiency Mixed irritable bowel syndrome Michael's thyroiditis Fibromyalgia Type 2 diabetes mellitus Obesity (BMI 30-39.9) Prediabetes Hypothyroidism BOY (obstructive sleep apnea) Hypertension Palpitations Tobacco dependence Pulmonary nodules Asthma-COPD overlap syndrome Surgical History History of excision of mass (09/28/21) Status post tendon repair History of esophagogastroduodenoscopy (EGD) H/O hand surgery Hx of colonoscopy Hx of lithotripsy Status post trigger finger release History of colon resection H/O excision of ganglion cyst H/O arthroscopy of right knee H/O wrist surgery H/O release of tendon Hx of cholecystectomy Family History Father Myocardial infarction Hypertension Diabetes CVD (cardiovascular disease) Mother Restless leg syndrome Diabetes Paternal Aunt Breast cancer Uterine cancer Social History Alcohol intake: former Patient Tobacco Use Status: Current everyday Tobacco user Cigarettes Per Day: 3 Years Smoked: 30 +/- Review of Systems Const Denies chills, Denies fatigue, Denies fever(s), Denies frequent falls, Denies weakness, Denies weight gain and Denies weight loss ENT Denies dizziness Card Denies chest pain, Denies leg edema, Denies lightheadedness, Denies palpitations, Denies dyspnea and Denies dyspnea on exertion Resp Denies cough, Denies dyspnea and Denies dyspnea on exertion GI Denies hematochezia Musc Denies abnormal gait, Denies muscle weakness, Denies numbness, Denies radiating pain into limb and Denies tingling Neuro Denies abnormal gait, Denies dizziness, Denies frequent falls, Denies numbness, Denies tingling and Denies weakness Endo Denies fatigue and Denies palpitations Physical Exam Vital Signs: Last Vital Signs BP 140/70 H 11/07/23 09:45 BMI result Body Mass Index 36.6 GENERAL APPEARANCE: in no acute distress, pleasant. NECK: no carotid bruit, no jugular venous distention. SKIN: no suspicious lesions, warm and dry. HEART: no murmurs, regular rate and rhythm. LUNGS: clear to auscultation bilaterally. ABDOMEN: soft, nontender. EXTREMITIES: mild edema. PERIPHERAL PULSES: equal. NEUROLOGIC: No gross deficits, AAO X 3 Quality Reporting (2019) Adult ([facility] 138/09/06/68) Smoking risk assessment performed?: Yes Patient Tobacco Use Status: Current everyday Tobacco user Assessment & Plan Assessment & Plan (1) Pulmonary hypertension: Code(s): I27.20 - Pulmonary hypertension, unspecified Category: Medical (2) Dyspnea: Code(s): R06.00 - Dyspnea, unspecified Category: Medical Qualifiers: Dyspnea type: dyspnea on exertion Qualified Code(s): R06.09 - Other forms of dyspnea (3) Hypertension: Code(s): I10 - Essential (primary) hypertension Category: Medical Plan 58-year-old female who is here for follow-up. She had dyspnea on exertion and had coronary CTA performed which showed less than 50% lad and circumflex stenosis with calcification. She had chest CT performed which did show coronary calcification and I have explained to her that she will see this in her future reports also. She is already on atorvastatin 40 mg daily. She had an exercise stress test where she had hypertensive response to exercise and was only able to exercise for 3 minutes on treadmill with shortness of breath. She had exercise-related elevation of pulmonary pressures which is usually a marker for elevated left ventricular end-diastolic pressure with exercise due to diastolic dysfunction. Her main complaint is shortness of breath. She also has felt better with diuretics in the past. Currently because she is on hydrochlorothiazide I do not want to mix furosemide with that because of electrolyte issues. Adding isosorbide mononitrate 30 mg daily. If she tolerates it well then we will titrate it to 60 mg. I have advised her to take Tylenol with it for few days so she does not get bad headaches and stop the medication. She will see us back in few months. I think she is fine to start pulmonary rehabilitation. This will help her functional capacity and if she loses some weight it may help her diastolic dysfunction too. Thank you for allowing me to participate in the care of your patient. Please feel free to contact me if you have any questions. Coding Level of Care Code Est Pt Level 4 (87438) Diagnoses Pulmonary hypertension I27.20 Dyspnea on exertion R06.09 Dyspnea type: dyspnea on exertion Hypertension I10
== END 2023-11-07 10:13 | disposition home or self-care (01) ==
PROVIDERS: PCP Internal Medicine; Visit Provider Internal Medicine Cardiovascular Disease
DX: I27.20 Pulmonary hypertension, unspecified (principal); R06.09 Other forms of dyspnea; I10 Essential (primary) hypertension
CPT/HCPCS: 99214

== ENCOUNTER → 2023-11-07 09:15 | Outpatient (BNVA) | payer OTHER, SELFPAY | PROVIDERS: PCP Internal Medicine; Visit Provider Internal Medicine Cardiovascular Disease | DX: I27.20 Pulmonary hypertension, unspecified (principal); I10 Essential (primary) hypertension; R06.09 Other forms of dyspnea | CPT/HCPCS: 99212 ==

== ENCOUNTER 2023-12-28 08:59 | Outpatient (REF) | payer OTHER, SELFPAY ==
[2023-12-28 11:53] LABS: Creatinine Urine 140.19 mg/dL; Microalbum/Creatinine Ratio Ur 24.2 ug/mg cr (<30)
== END 2023-12-28 09:00 | disposition home or self-care (01) ==
LOC: HO.HHCL 08:59
PROVIDERS: Visit Provider Internal Medicine
DX: Z13.89 Encounter for screening for other disorder (principal)
CPT/HCPCS: 82043; 82570

== ENCOUNTER 2024-01-01 07:32 | Outpatient (REF) | payer OTHER, SELFPAY | END 2024-01-01 07:33 | disposition home or self-care (01) | LOC: HO.MAMMO 07:32 | PROVIDERS: PCP Internal Medicine; Visit Provider Internal Medicine | DX: Z12.31 Encounter for screening mammogram for malignant neoplasm of breast (principal) | CPT/HCPCS: 77063; 77067 ==

== ENCOUNTER → 2024-01-01 07:45 | Outpatient (BNV) | payer OTHER, SELFPAY | PROVIDERS: PCP Internal Medicine; Visit Provider Radiology Diagnostic Radiology | DX: Z12.31 Encounter for screening mammogram for malignant neoplasm of breast (principal) | CPT/HCPCS: 77063; 77067 ==

== ENCOUNTER 2024-03-04 20:57 | Emergency (ER) | payer OTHER, SELFPAY ==
[2024-03-04 21:04] VITALS: BP 170/82; BP 171/72; PULSE 80; PULSE 90; RESP 18; TEMP 36.2; O2SAT 96; O2SAT 98; BMI 36.5
[2024-03-04 21:24] LABS: MANUAL DIFF FLAG NO
[2024-03-04 21:30] LABS: Basophils Percent Auto 0.4 % (0-2); Eosinophils Absolute Auto 0.2 X10*3/uL (0.0-0.4); Eosinophils Percent Auto 2.2 % (0-4); Hematocrit 42.6 % (37.0-47.0); Hemoglobin 14.4 g/dl (12.0-16.0); Imm Gran Abs Auto 0.02 X10*3/uL (0.00-0.03); Imm Gran Pct Auto 0.3 % (0.0-0.4); Lymphocytes Absolute Auto 2.4 X10*3/uL (1.2-4.9); Mean Corpuscular HGB Conc 33.8 g/dl (31.0-35.0); Mean Corpuscular Hemoglobin 27.5 pg (27.0-33.0); Mean Corpuscular Volume 81.3 fL (80.0-98.0); Mean Platelet Volume 9.3 fL (9.4-12.3); Monocytes Absolute Auto 0.5 X10*3/uL (0.1-1.2); Monocytes Percent Auto 6.7 % (2-11); Neutrophils Absolute Auto 4.1 x10*3/uL (2.0-8.3); Neutrophils Percent Auto 56.4 % (45-73); Platelet Count 308 X10*3/uL (160-400); Red Blood Count 5.24 X10*6/uL (4.20-5.50); White Blood Count 7.2 X10*3/uL (4.8-10.8)
[2024-03-04 21:48] LABS: Alanine Aminotransferase 34 U/L (0-31); Albumin Level 4.1 g/dL (3.5-5.0); Alkaline Phosphatase 96 U/L (39-117); Anion Gap 14 (12-20); Aspartate Amino Transferase 18 U/L (5-31); Bilirubin Total 0.3 mg/dL (0.0-1.0); Blood Urea Nitrogen 11 mg/dL (9-16); Carbon Dioxide 24 mmol/L (22-29); Chloride 105 mmol/L (96-108); Creatinine Clr Calc Pharmacy 108.5; Estimated Glomerular Filt Rate > 60; Glucose Random 150 mg/dL (60-115); Potassium 3.4 mmol/L (3.3-5.1); Sodium 140 mmol/L (135-145); Total Protein 7.6 g/dL (6.5-8.0)
== END 2024-03-05 01:11 | disposition left against medical advice (07) ==
PROVIDERS: Emergency Provider Emergency Medicine; PCP Internal Medicine
DX: R51.9 Headache, unspecified (principal); H92.02 Otalgia, left ear; R42 Dizziness and giddiness; Z53.21 Procedure and treatment not carried out due to patient leaving prior to being seen by health care provider
CPT/HCPCS: 36415; 80053; 85025; 99281

== ENCOUNTER 2024-03-21 08:50 | Outpatient (AMB) | payer MEDICARE, SELFPAY ==
[2024-03-21 09:13] VITALS: BP 140/78; PULSE 84; O2SAT 98; BMI 36.5
--- NOTE | 2024-03-21 09:13 | A.OFFVIS_ITS ---
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 She states that she has had asthma most of her life as a child and was based on the fact that she was a premature baby. The patient continued to smoke throughout her life. More recently she started developing worsening shortness of breath and cough. She did have a rescue inhaler that she could use as needed. Back in early March the patient started developing worsening shortness of breath in addition to cough and chest discomfort. She was evaluated in the ED and her D-dimer was elevated. She did have a CT scan of the chest PE protocol the ruled out any evidence of pulmonary emboli. However, she did have pulmonary nodules noted some calcified and some noncalcified. It appears that the right-sided nodule has grown slightly from 0.5 cm to 0.[address] scan. The patient also had evidence of chronic bronchitis and also mild degree of emphysema in the upper lung zones. Currently she is feeling better. She stop smoking about a week ago and she used using the Nicotrol inhaler as needed. Patient also had a DNA swab which was normal for the alpha-1 genotype,MM. 02/02/2023 the patient is here for pulmonary follow-up visit. The patient did have a sleep study. The patient had a very mild degree of sleep apnea. Her Ishpeming score was 5.4. in addition to this the patient did have also some hypoxia for about 5 minutes. The the patient can consider positional therapy versus restarting her CPAP. In addition to that she continues with current respiratory therapy that is beer appears to be affecting beneficial. she continues to have sleep dyspnea on exertion. Mild in severity. Does improve with her current respiratory regimen. She would also benefit from pulmonary rehabilitation. The patient is also participating in the lung cancer screening program. Her next CT scans can be arcus of 2022. 08/10/2023 the patient is here for a pulmonary follow-up visit. She is complaining of significant dyspnea on exertion. In with minimal activity she is getting very winded. She has a hard time going up a flight of stairs. She does need to go up a flight of stairs to get to her home. She usually leads to stopping between. Denies any chest pressures. Sometimes she does have palpitations any increased heart rate even at rest. She has been using Anoro that has been effective for. She does feel some chest tightness and wheezing. Mild in severity. We did look at her CT scan of the chest she had back in 2021. She does have pulmonary nodules that had not changed from 2020. Still the patient has had risk and does require to have a CT scan at this time. If the nodules are stable in her next CT scan no additional imaging studies may be warranted. In the meantime we did go for walking oximetry. The patient did become significantly dyspneic with a dyspnea score of 8/10. Heart rate was initially not increasing staying about 100 to throughout the ambulation. However, then when she has had down the heart rate quickly jumped to 130 beats per minute. Seems to be narrow complex and regular. We did look at her coronary artery CT scan. Appeared that she had a mild single-vessel disease of the obtuse marginal branch. I am concerned with the potential cardiac component so therefore I will go ahead and order a stress echo. In the meantime will also follow-up with PFTs and CT scan to follow-up pulmonary nodules. Will optimize respiratory regimen by switching her from the Anoro to Trelegy. If the patient has any worsening symptoms or increased palpitations then she should quickly be evaluated. 10/12/2023 the patient is here for a pulmonary follow-up visit. The patient overall has been complaining of increasing dyspnea on exertion. Sgfm-oz-fqlmohfz severity. He feels like he has been getting worse the Trelegy inhaler has been helpful. She does have a rescue inhaler she does not typically use. The patient will benefit from pulmonary rehabilitation at this time. She unfortunately continues to smoke although she is cut down significantly down to about 2-3 cigarettes a day. We talked about smoking cessation whenever she is ready completely she should come up with a quit date. We did look at her last CT scan of the chest. Her pulmonary nodules appear to be stable. The patient also underwent pulmonary function studies demonstrating moderate COPD although it appears that is improved when compared to a few years back suggesting that the medications are helping. The patient also had a abnormal stress test. She will be following up with a electrician master soon. If Cardiology feels that she is doing okay she should start to pulmonary rehabilitation. 03/21/2024 the patient is here for pulmonary follow-up visit. Overall she is doing well. She did have a full cardiac workup which was reassuring. She does have some underlying CAD but is currently being treated medically. Therefore, we did review her PFTs and the patient is a great candidate for pulmonary rehabilitation. Will go ahead and submit a referral. The patient will continue with current respiratory therapy. She is having some headaches in the morning. Will go ahead and check an overnight oximetry to make sure the oxygen levels are stable while sleeping. Will continue to monitor her lung cancer screening program. The patient has been working on quitting smoking which is reassuring. Will follow-up in 6-8 months. The patient has any issues prior to that she will call for an earlier assessment. [facility] Medical History (Updated 10/12/23 @ 09:27 by Jose Johnson MD) Pulmonary hypertension Dyspnea Vitamin D deficiency Mixed irritable bowel syndrome Michael's thyroiditis Fibromyalgia Type 2 diabetes mellitus Obesity (BMI 30-39.9) Prediabetes Hypothyroidism BOY (obstructive sleep apnea) Hypertension Palpitations Tobacco dependence Pulmonary nodules Asthma-COPD overlap syndrome Surgical History History of excision of mass (09/28/21) Status post tendon repair History of esophagogastroduodenoscopy (EGD) H/O hand surgery Hx of colonoscopy Hx of lithotripsy Status post trigger finger release History of colon resection H/O excision of ganglion cyst H/O arthroscopy of right knee H/O wrist surgery H/O release of tendon Hx of cholecystectomy Family History Father Myocardial infarction Hypertension Diabetes CVD (cardiovascular disease) Mother Restless leg syndrome Diabetes Paternal Aunt Breast cancer Uterine cancer Social History Alcohol intake: former Patient Tobacco Use Status: Current everyday Tobacco user Cigarettes Per Day: 3 Years Smoked: 30 +/- Review of Systems Const Reports daytime sleepiness, Reports fatigue, Reports headache(s), Reports snoring and Denies weakness ENT Denies dizziness, Reports headache(s), Denies lip swelling and Denies tongue swelling Card Denies chest pain, Denies chest pain with activity, Denies syncope, Denies rapid heart rate, Denies pedal edema, Denies edema, Denies leg edema, Denies lightheadedness, Reports palpitations, Denies dyspnea, Reports dyspnea on exertion and Denies orthopnea Resp Denies cough, Denies dyspnea, Reports dyspnea on exertion, Reports snoring and Reports wheezing GI Denies hematochezia and Denies change in stool character Musc Denies abnormal gait, Denies muscle weakness, Denies numbness, Denies radiating pain into limb and Denies tingling Neuro Denies abnormal gait, Denies dizziness, Denies syncope, Reports headache(s), Denies numbness, Denies tingling and Denies weakness Psych Denies no additional complaints Endo Reports fatigue and Reports palpitations Gerson/Lymph Denies easy bleeding and Denies lymphadenopathy Aller/Immun Denies lip swelling, Denies tongue swelling and Reports wheezing Physical Exam Vital Signs: Last Vital Signs Pulse 84 03/21/24 09:13 BP 140/78 H 03/21/24 09:13 Pulse Ox 98 03/21/24 09:13 Oxygen Delivery Method Room Air 03/21/24 09:13 BMI result Body Mass Index 36.5 Const General: alert HEENT Head: Yes atraumatic Neck Neck: Yes normal visual inspection, Yes full ROM and Yes no lymphadenopathy Chest Chest palpation & inspection: normal inspection of the chest Resp Effort & Inspection: normal respiratory effort Auscultation: diminished lung sounds Cardio Rate: regular rate and tachycardic (sinus tach after exercise 130) Rhythm: regular rhythm Heart sounds: S1 normal heart sound present and S2 normal heart sound present GI Palpation (GI): Soft to palpation and nontender Auscultation: normal bowel sounds Skin General skin exam: rashes and/or lesions noted Quality Reporting (2019) Adult ([facility] 138/2/22/69) Smoking risk assessment performed?: Yes Patient Tobacco Use Status: Current everyday Tobacco user Assessment & Plan Assessment & Plan (1) Pulmonary hypertension: Code(s): I27.20 - Pulmonary hypertension, unspecified Category: Medical (2) Dyspnea: Code(s): R06.00 - Dyspnea, unspecified Category: Medical Qualifiers: Dyspnea type: dyspnea on exertion Qualified Code(s): R06.09 - Other forms of dyspnea (3) Asthma-COPD overlap syndrome: Code(s): J44.9 - Chronic obstructive pulmonary disease, unspecified Category: Medical (4) BOY (obstructive sleep apnea): Comment: very mild Code(s): G47.33 - Obstructive sleep apnea (adult) (pediatric) Category: Medical (5) Tobacco dependence: Code(s): F17.200 - Nicotine dependence, unspecified, uncomplicated Category: Medical (6) Pulmonary nodules: Comment: largest nodule 7mm nodule 11/2019, 05/04 was unchanged Code(s): R91.8 - Other nonspecific abnormal finding of lung field Category: Medical Plan continue Trelegy 200 short-acting beta agonist as needed start singulair start Pulmonary rehab overnight oximetry on RA Follow-up in 3-4 months Orders: Orders Pulmonary Rehab 03/21/24 J44.9 - Chronic obstructive pulmonary disease, unspecified, R06.09 - Other forms of dyspnea Overnight Pulse Oximetry 03/21/24 J44.9 - Chronic obstructive pulmonary disease, unspecified Medications: New montelukast (Singulair) 10 mg PO BEDTIME 30 tabs 11RF 30 days J45.909 - Unspecified asthma, uncomplicated Changed From albuterol sulfate 90 mcg/actuation 2 puffs PO Q4-6H PRN 8.5 grams 0RF for wheezing To albuterol sulfate 90 mcg/actuation 2 puffs PO Q6H PRN 8.5 grams 11RF for wheezing 30 days Coding Level of Care Code Est Pt Level 4 (94664) Complex EM visit Add On G2211 Diagnoses Pulmonary hypertension I27.20 Dyspnea on exertion R06.09 Dyspnea type: dyspnea on exertion Asthma-COPD overlap syndrome J44.9 BOY (obstructive sleep apnea) G47.33 Tobacco dependence F17.200 Pulmonary nodules R91.8 Time Spent (min) 17
== END 2024-03-21 09:31 | disposition home or self-care (01) ==
PROVIDERS: PCP Internal Medicine; Visit Provider Hospitalist
DX: I27.20 Pulmonary hypertension, unspecified (principal); R06.09 Other forms of dyspnea; J44.9 Chronic obstructive pulmonary disease, unspecified; G47.33 Obstructive sleep apnea (adult) (pediatric); F17.200 Nicotine dependence, unspecified, uncomplicated; R91.8 Other nonspecific abnormal finding of lung field
CPT/HCPCS: 99214; G2211

== ENCOUNTER → 2024-03-21 08:50 | Outpatient (BNVA) | payer MEDICARE, SELFPAY | PROVIDERS: PCP Internal Medicine; Visit Provider Hospitalist | DX: J44.9 Chronic obstructive pulmonary disease, unspecified (principal); R06.09 Other forms of dyspnea; R91.8 Other nonspecific abnormal finding of lung field; I27.20 Pulmonary hypertension, unspecified; G47.33 Obstructive sleep apnea (adult) (pediatric); F17.210 Nicotine dependence, cigarettes, uncomplicated | CPT/HCPCS: 99212 ==

== ENCOUNTER 2024-04-22 09:26 | Outpatient (REF) | payer MEDICARE, SELFPAY ==
[2024-04-22 11:39] LABS: MANUAL DIFF FLAG NO
[2024-04-22 11:43] LABS: Basophils Percent Auto 0.3 % (0-2); Eosinophils Absolute Auto 0.1 X10*3/uL (0.0-0.4); Eosinophils Percent Auto 1.7 % (0-4); Hematocrit 44.4 % (37.0-47.0); Hemoglobin 14.7 g/dl (12.0-16.0); Imm Gran Abs Auto 0.01 X10*3/uL (0.00-0.03); Imm Gran Pct Auto 0.2 % (0.0-0.4); Lymphocytes Absolute Auto 2.2 X10*3/uL (1.2-4.9); Lymphocytes Percent Auto 33.7 % (20-40); Mean Corpuscular HGB Conc 33.1 g/dl (31.0-35.0); Mean Corpuscular Hemoglobin 27.3 pg (27.0-33.0); Mean Corpuscular Volume 82.5 fL (80.0-98.0); Monocytes Absolute Auto 0.4 X10*3/uL (0.1-1.2); Monocytes Percent Auto 5.6 % (2-11); Neutrophils Absolute Auto 3.9 x10*3/uL (2.0-8.3); Neutrophils Percent Auto 58.5 % (45-73); Platelet Count 286 X10*3/uL (160-400); Red Blood Count 5.38 X10*6/uL (4.20-5.50); Red Cell Distribution Width 14.6 % (11.0-16.0); White Blood Count 6.6 X10*3/uL (4.8-10.8)
[2024-04-22 12:16] LABS: Creatinine Urine 193.55 mg/dL; Microalbum/Creatinine Ratio Ur 8.2 ug/mg cr (<30)
[2024-04-22 12:25] LABS: Alanine Aminotransferase 20 U/L (0-31); Alkaline Phosphatase 110 U/L (39-117); Anion Gap 15 (12-20); Aspartate Amino Transferase 13 U/L (5-31); Bilirubin Total 0.4 mg/dL (0.0-1.0); Blood Urea Nitrogen 11 mg/dL (9-16); Calcium 9.7 mg/dL (8.4-10.2); Carbon Dioxide 22 mmol/L (22-29); Chloride 106 mmol/L (96-108); Cholesterol 154 mg/dL (<200); Estimated Glomerular Filt Rate > 60; Glucose Random 197 mg/dL (60-115); HDL Cholesterol 46 mg/dL (>40); LDL Cholesterol Calculated 79 mg/dL (<100); Sodium 139 mmol/L (135-145); TSH reflex Free T4 < 0.01 uIU/mL (0.32-4.0); Total Protein 7.4 g/dL (6.5-8.0); Triglycerides 149 mg/dL (<150)
[2024-04-22 12:57] LABS: HIV AB/AG Nonreactive (Nonreactive); HIV Num 1 0.04 S/CO (0.00-0.99)
[2024-04-22 13:35] LABS: Reflex LDLD? No
[2024-04-22 14:06] LABS: Free T4 (Free Thyroxine) 1.75 ng/dL (0.71-1.85)
[2024-04-23 20:18] LABS: HCV Log PCR <1.18 NOT DETECTED Log IU/mL (NOT DETECTED); HepC Viral Load <15 NOT DETECTED IU/mL (NOT DETECTED)
== END 2024-04-22 09:27 | disposition home or self-care (01) ==
LOC: HO.HHCL 09:26
PROVIDERS: Visit Provider Internal Medicine
DX: E11.65 Type 2 diabetes mellitus with hyperglycemia (principal)
CPT/HCPCS: 36415; 80053; 80061; 82043; 82570; 84439; 84443; 85025; 87389; 87522

== ENCOUNTER 2024-05-12 14:21 | Emergency (ER) | payer MEDICARE, SELFPAY ==
--- NOTE | ~2024-05-12 | US_ITS ---
EXAMINATION: US TRIPLEX LOWER EXTREMITY, LEFT CLINICAL INFORMATION: Left lower extremity pain and swelling COMPARISON: None available. TECHNIQUE: Color-flow triplex imaging with spectral analysis and compression Doppler were performed on the left lower extremity. FINDINGS: Respiratory variation, normal compression and augmented flow are noted throughout the left lower extremity. The visualized common femoral vein, superficial femoral vein, profunda femoral vein, popliteal vein and midcalf peroneal and posterior tibial venous segments show no evidence of deep venous thrombosis. There is no Florence's cyst. US/US venous duplex LE LT IMPRESSION: No evidence of deep venous thrombosis involving the left lower extremity. Electronically signed by: Ken Melissa MD 05/12/2024 04:30 PM EDT RP
--- NOTE | ~2024-05-12 | XR_ITS ---
EXAMINATION: XR KNEE, LEFT CLINICAL INFORMATION: Left knee pain, no trauma COMPARISON: None available. TECHNIQUE: Four views of the left knee. FINDINGS: No fracture or joint effusion. Alignment is anatomic. Joint spaces are maintained. No abnormal soft tissue calcification. XR/XR knee LT 3V IMPRESSION: Normal left knee. Electronically signed by: Landon Cristina MD 05/12/2024 03:40 PM EDT
--- NOTE | 2024-05-12 14:52 | ED.LOWEXIN ---
HPI - Extremity Injury (Lower) General Chief Complaint: General Medical Stated Complaint: Lknee pain Time Seen by Provider: 05/12/24 17:08 Source: patient, RN notes reviewed and old records reviewed Mode of arrival: ambulatory History of Present Illness ED Provider: Nisreen Sunshine PA-C HPI Narrative: 58-year-old female with a past medical history pulmonary hypertension, Michael's, fibromyalgia, diabetes, hypothyroid, BOY, HTN, asthma/COPD overlap syndrome, presenting to the ED complaining of atraumatic left knee pain and swelling x3 weeks. Does admit to using stationary bike which is new for her. Denies known injury, direct trauma or fall, numbness, tingling, weakness, SOB. Related Data Home Medications ?Medication ?Instructions ?Recorded ?Confirmed duloxetine 60 mg capsule,delayed 60 mg PO DAILY 08/18/21 11/07/23 release ropinirole 3 mg tablet 3 mg PO BEDTIME 10/06/21 11/07/23 amitriptyline 75 mg tablet 75 mg PO BEDTIME 11/28/21 11/07/23 omeprazole 20 mg capsule,delayed 20 mg PO BID 11/28/21 11/07/23 release aripiprazole 2 mg tablet 2 mg PO DAILY 02/16/22 11/07/23 CPAP (CPAP Machine/Device) 10/27/22 nebulizers 10/27/22 ibuprofen 800 mg tablet 800 mg PO Q8H PRN Pain 12/20/22 11/07/23 oxycodone 5 mg tablet 5 mg PO TID PRN Pain 12/20/22 06/20/23 nebulizers 10/12/23 alprazolam 0.5 mg tablet 0.5 mg PO QID PRN 11/07/23 11/07/23 dulaglutide 3 mg/0.5 mL mg subcut 11/07/23 11/07/23 subcutaneous pen injector (Trulicity) Previous Rx's ?Medication ?Instructions ?Recorded lancets 28 gauge (FreeStyle #50 ea 11/16/20 Lancets) naloxone 4 mg/actuation nasal 4 mg intranasal Q2M PRN opioid 09/01/21 spray (Narcan) overdose #2 ea levothyroxine 125 mcg tablet 125 mcg PO DAILY 30 days #30 tabs 01/23/22 ezetimibe 10 mg tablet 10 mg PO DAILY #60 tabs 02/02/23 atorvastatin 40 mg tablet 40 mg PO DAILY #60 tabs 06/20/23 hydrochlorothiazide 12.5 mg tablet 12.5 mg PO DAILY #90 tabs 06/20/23 albuterol sulfate 2.5 mg/3 mL 2.5 mg (3 mL) inhalation QID PRN 08/10/23 (0.083 %) solution for nebulization shortness of breath or wheezing #180 mL fluticasone fur. 200 mcg-umeclid 1 inh inhalation DAILY 30 days #60 08/10/23 62.5 mcg-vilant 25 mcg ea inhalat.powder (Trelegy Ellipta) isosorbide mononitrate 30 mg 30 mg PO DAILY #60 tabs 11/07/23 tablet,extended release 24 hr albuterol sulfate 90 mcg/actuation 2 puff PO Q6H PRN for wheezing 30 03/21/24 aerosol inhaler days #8.5 grams montelukast 10 mg tablet 10 mg PO BEDTIME 30 days #30 tabs 03/21/24 (Singulair) acetaminophen 500 mg tablet 500 mg PO Q6H PRN fever or pain 05/12/24 (Tylenol Extra Strength) #14 tabs diclofenac sodium 1 % topical gel 2 g topical QID 7 days #100 grams 05/12/24 (Aleve (diclofenac)) naproxen 500 mg tablet 500 mg PO BID PRN pain 10 days #20 05/12/24 tabs Allergies Allergy/AdvReac Type Severity Reaction Status Date / Time adhesive tape Allergy Severe BLISTERS Verified 05/12/24 14:55 Tetanus Vaccines and Toxoid Allergy Intermediate SWELLING, Verified 05/12/24 14:55 [TETANUS VACCINES & TOXOID] REDNESS surgical tape Allergy Severe hives/boils Uncoded 03/21/24 09:15 Review of Systems Review of Systems: Yes all other systems are reviewed and are negative Constitutional: Constitutional: Reports as per [facility] Past Medical History Attestation statement: The following information was validated with the patient. Source: old records reviewed Medical History Pulmonary hypertension Dyspnea Vitamin D deficiency Mixed irritable bowel syndrome Michael's thyroiditis Fibromyalgia Type 2 diabetes mellitus Obesity (BMI 30-39.9) Prediabetes Hypothyroidism BOY (obstructive sleep apnea) Hypertension Palpitations Tobacco dependence Pulmonary nodules Asthma-COPD overlap syndrome Surgical History History of excision of mass (09/28/21) Status post tendon repair History of esophagogastroduodenoscopy (EGD) H/O hand surgery Hx of colonoscopy Hx of lithotripsy Status post trigger finger release History of colon resection H/O excision of ganglion cyst H/O arthroscopy of right knee H/O wrist surgery H/O release of tendon Hx of cholecystectomy Family History Family History Father Myocardial infarction Hypertension Diabetes CVD (cardiovascular disease) Mother Restless leg syndrome Diabetes Paternal Aunt Breast cancer Uterine cancer Social History Social History Alcohol intake: former Patient Tobacco Use Status: Current everyday Tobacco user Cigarettes Per Day: 3 Years Smoked: 30 +/- Do you have a plan to hurt others: No Plan Physical Exam Vital Signs: Vital Signs: Last Vital Signs Temp 98.5 F 05/12/24 14:53 Pulse 91 05/12/24 14:53 Resp 18 05/12/24 14:53 BP 158/64 H 05/12/24 14:53 Pulse Ox 97 05/12/24 14:53 O2 Del Method Room Air 05/12/24 14:53 BMI result Body Mass Index 34.1 Const: General: cooperative, healthy appearing and no acute distress Orientation/consciousness: patient oriented x3 Limitations: no limitations HEENT: Head: Yes normal to inspection and Yes atraumatic Ears: hearing grossly normal bilaterally General nose exam: Normal external nose present Face and sinus: Yes normal facial exam Eyes: General: appearance normal, both eyes and all related structures EOM: EOMs intact bilaterally Neck: Neck: Yes normal visual inspection and Yes no meningeal signs Resp: Effort & Inspection: normal respiratory effort and no respiratory distress Cardio: Rate: regular rate Skin: Rashes: no rashes Wounds: no wounds Neuro: General: patient oriented x3, tone normal and no meningeal signs Cranial nerves: Yes CN's II-XII intact bilaterally Gait exam (Neuro): Normal gait present Extrem: Other: Left knee with appreciable swelling. Diffusely tender to palpation. Limited ROM secondary to pain. Ambulating with antalgic/limping gait. No erythema/warmth. No calf tenderness. Neurovascularly intact distally. No crepitus. No discoloration Course Course Course Narrative: This is a Rapid Medical Exam performed in triage by Nisreen Sunshine PA-C. Full HPI, ROS and PE to be performed by primary ED provider. 58-year-old female with a past medical history pulmonary hypertension, lymphedema, Michael's, fibromyalgia, diabetes, BOY, asthma/COPD presenting to the ED c/o atraumatic left knee pain x3 weeks PE: +LLE swelling appreciated. L knee ttp. NV intact Plan: ultrasound and x-ray 1712-- US venous duplex LE LT IMPRESSION: No evidence of deep venous thrombosis involving the left lower extremity. XR knee LT 3V IMPRESSION: Normal left knee. > Richy wrap applied. Results discussed with patient including worrisome signs and symptoms and strict return precautions, and when to return to the emergency department. They verbalized understanding and feel safe for discharge at this time. Medical Decision Making Medical Decision Making MDM Narrative: 58-year-old female with a past medical history pulmonary hypertension, Michael's, fibromyalgia, diabetes, hypothyroid, BOY, HTN, asthma/COPD overlap syndrome, presenting to the ED complaining of atraumatic left knee pain and swelling x3 weeks. On exam vital signs stable, NAD, nontoxic appearing, physical exam as noted above. Concern for tendinopathy vs MSK pain/strain vs meniscal injury vs DVT. Low suspicion for PE. No evidence of septic joint/arthritis Plan: X-ray, ultrasound Please refer to course for remaining clinical decision making, interpretation of labs/imaging results, and discussions with consultants and/or family members. Differential Diagnosis Differential Diagnoses: The differential diagnosis associated with the presentation includes As above Independent Interpretation I performed an independent interpretation of an: Plain X-Ray and Ultrasound Radiology Impression Discussion of test interpretation with radiology: I have reviewed the radiologist's reading. External Record Review External record reviewed: Inpatient record, Office record, Outpatient record, Prior outpatient labs, Prior outpatient radiology, Primary care record and Outside ED record Tests considered The following testing was considered but not selected: As above Prescription Management I considered prescription management with: Pain Medication Chronic Conditions Patient?s care impacted by: Other Social Determinants Patient?s care significantly limited by Social Determinants of Health including: Low income, Problems related to primary support group, Unemployment, Problems related to employment and Other Social Determinant of Health Discharge Plan Discharge Clinical Impression: Acute knee pain Patient Disposition: Home, Self-Care Instructions: Knee Pain (ED), Arthralgia (ED) Additional Instructions: Your ultrasound and x-ray were unremarkable Wear Richy wrap for compression and stability Ice and elevate Naproxen as an anti-inflammatory/pain medicine, take with food In addition take Tylenol Diclofenac topical gel as a topical anti-inflammatory pain medication, apply to your knee If symptoms persist or worsen, pain becomes unbearable, area becomes red return to the ED Prescriptions: New acetaminophen [Tylenol Extra Strength] 500 mg tablet 500 mg PO Q6H PRN (Reason: fever or pain) Qty: 14 0RF naproxen 500 mg tablet 500 mg PO BID PRN (Reason: pain) 10 Days Qty: 20 0RF diclofenac sodium [Aleve (diclofenac)] 1 % gel 2 g topical QID 7 Days Qty: 100 0RF Rx Instructions: apply to single elbow, wrist or hand; for hand includes palm/fingers/back of hand No Action (DME) lancets [FreeStyle Lancets] [facility] See Rx Instructions .ROUTE .MEDSUPPLY Qty: 50 6RF Rx Instructions: Once a day levothyroxine 125 mcg tablet 125 mcg PO DAILY 30 Days Qty: 30 3RF ezetimibe 10 mg tablet 10 mg PO DAILY Qty: 60 3RF hydrochlorothiazide 12.5 mg tablet 12.5 mg PO DAILY Qty: 90 3RF ibuprofen 800 mg tablet 800 mg PO Q8H PRN (Reason: Pain) oxycodone 5 mg tablet 5 mg PO TID PRN (Reason: Pain) naloxone [Narcan] 4 mg/actuation spray,non-aerosol 4 mg intranasal Q2M PRN (Reason: opioid overdose) Qty: 2 1RF Rx Instructions: spray 1 dose into ONE nostril; alternate nostrils w each dose until help arrives amitriptyline 75 mg tablet 75 mg PO BEDTIME omeprazole 20 mg capsule,delayed release(DR/EC) 20 mg PO BID ropinirole 3 mg tablet 3 mg PO BEDTIME aripiprazole 2 mg tablet 2 mg PO DAILY duloxetine 60 mg capsule,delayed release(DR/EC) 60 mg PO DAILY (DME) nebulizers Misc See Rx Instructions .ROUTE Rx Instructions: As directed (DME) CPAP Machine/Device Device See Rx Instructions .ROUTE Rx Instructions: As directed (DME) nebulizers [facility] [place] See Rx Instructions .ROUTE Rx Instructions: As directed Trelelaury Ellipta 200-62.5-25 mcg blister with device 1 inh inhalation DAILY 30 Days Qty: 60 12RF albuterol sulfate 2.5 mg /3 mL (0.083 %) solution for nebulization 2.5 mg inhalation QID PRN (Reason: shortness of breath or wheezing) Qty: 180 11RF atorvastatin 40 mg tablet 40 mg PO DAILY Qty: 60 3RF Trulicity 3 mg/0.5 mL pen injector subcut alprazolam 0.5 mg tablet 0.5 mg PO QID PRN isosorbide mononitrate 30 mg tablet extended release 24 hr 30 mg PO DAILY Qty: 60 3RF montelukast [Singulair] 10 mg tablet 10 mg PO BEDTIME 30 Days Qty: 30 11RF albuterol sulfate 90 mcg/actuation HFA aerosol inhaler 2 puff PO Q6H PRN (Reason: for wheezing) 30 Days Qty: 8.5 11RF Referrals: [facility] [Provider Group] - 1 week Virginie Monet MD [Primary Care Provider] - Print Language: Lao
[2024-05-12 14:53] VITALS: BP 158/64; PULSE 91; RESP 18; TEMP 36.9; O2SAT 97; BMI 34.1
[2024-05-12 17:21] VITALS: BP 151/63; PULSE 86; RESP 18; TEMP 36.8; O2SAT 97
== END 2024-05-12 17:22 | disposition home or self-care (01) ==
PROVIDERS: Emergency Provider Internal Medicine; PCP Internal Medicine
DX: M25.562 Pain in left knee (principal); M79.662 Pain in left lower leg; M79.89 Other specified soft tissue disorders
CPT/HCPCS: 73562; 93971; 99282; 99284

== ENCOUNTER 2024-05-15 19:05 | Emergency (ER) | payer OTHER, SELFPAY ==
[2024-05-15 19:23] VITALS: BP 176/75; PULSE 111; RESP 18; TEMP 36.3; O2SAT 97; BMI 36.4
--- NOTE | 2024-05-15 19:24 | ED_ITS ---
HPI - General Adult General Chief complaint: General Medical Stated complaint: blood sugar 466 Time Seen by Provider: 05/16/24 00:12 Source: patient Mode of arrival: ambulatory Limitations: no limitations History of Present Illness ED Provider: Dr. Salas HPI narrative: patient is 58 yo DM on ozempic and metformin who presents with increasing sugars. She has had increasing thirst and blurry vision for a week, noticed that she has been urinating a lot and took her sugar today and it was 466. No fever, no UTI symptoms Onset (ago): day(s) Related Data Home Medications ?Medication ?Instructions ?Recorded ?Confirmed duloxetine 60 mg capsule,delayed 60 mg PO DAILY 08/18/21 11/07/23 release ropinirole 3 mg tablet 3 mg PO BEDTIME 10/06/21 11/07/23 amitriptyline 75 mg tablet 75 mg PO BEDTIME 11/28/21 11/07/23 omeprazole 20 mg capsule,delayed 20 mg PO BID 11/28/21 11/07/23 release aripiprazole 2 mg tablet 2 mg PO DAILY 02/16/22 11/07/23 CPAP (CPAP Machine/Device) 10/27/22 nebulizers 10/27/22 ibuprofen 800 mg tablet 800 mg PO Q8H PRN Pain 12/20/22 11/07/23 oxycodone 5 mg tablet 5 mg PO TID PRN Pain 12/20/22 06/20/23 nebulizers 10/12/23 alprazolam 0.5 mg tablet 0.5 mg PO QID PRN 11/07/23 11/07/23 dulaglutide 3 mg/0.5 mL mg subcut 11/07/23 11/07/23 subcutaneous pen injector (Trulicity) Previous Rx's ?Medication ?Instructions ?Recorded lancets 28 gauge (FreeStyle #50 ea 11/16/20 Lancets) naloxone 4 mg/actuation nasal 4 mg intranasal Q2M PRN opioid 09/01/21 spray (Narcan) overdose #2 ea levothyroxine 125 mcg tablet 125 mcg PO DAILY 30 days #30 tabs 01/23/22 ezetimibe 10 mg tablet 10 mg PO DAILY #60 tabs 02/02/23 atorvastatin 40 mg tablet 40 mg PO DAILY #60 tabs 06/20/23 hydrochlorothiazide 12.5 mg tablet 12.5 mg PO DAILY #90 tabs 06/20/23 albuterol sulfate 2.5 mg/3 mL 2.5 mg (3 mL) inhalation QID PRN 08/10/23 (0.083 %) solution for nebulization shortness of breath or wheezing #180 mL fluticasone fur. 200 mcg-umeclid 1 inh inhalation DAILY 30 days #60 08/10/23 62.5 mcg-vilant 25 mcg ea inhalat.powder (Trelegy Ellipta) isosorbide mononitrate 30 mg 30 mg PO DAILY #60 tabs 11/07/23 tablet,extended release 24 hr albuterol sulfate 90 mcg/actuation 2 puff PO Q6H PRN for wheezing 30 03/21/24 aerosol inhaler days #8.5 grams montelukast 10 mg tablet 10 mg PO BEDTIME 30 days #30 tabs 03/21/24 (Singulair) acetaminophen 500 mg tablet 500 mg PO Q6H PRN fever or pain 05/12/24 (Tylenol Extra Strength) #14 tabs diclofenac sodium 1 % topical gel 2 g topical QID 7 days #100 grams 05/12/24 (Aleve (diclofenac)) naproxen 500 mg tablet 500 mg PO BID PRN pain 10 days #20 05/12/24 tabs Allergies Allergy/AdvReac Type Severity Reaction Status Date / Time adhesive tape Allergy Severe BLISTERS Verified 05/15/24 19:25 Tetanus Vaccines and Toxoid Allergy Intermediate SWELLING, Verified 05/15/24 19:25 [TETANUS VACCINES & TOXOID] REDNESS surgical tape Allergy Severe hives/boils Uncoded 05/15/24 19:25 Review of Systems 2 Review of Systems: Yes all other systems are reviewed and are negative Neurologic: Denies Sensory deficit (Neuro) [facility] Past Medical History Medical History Pulmonary hypertension Dyspnea Vitamin D deficiency Mixed irritable bowel syndrome Michael's thyroiditis Fibromyalgia Type 2 diabetes mellitus Obesity (BMI 30-39.9) Prediabetes Hypothyroidism OBY (obstructive sleep apnea) Hypertension Palpitations Tobacco dependence Pulmonary nodules Asthma-COPD overlap syndrome Surgical History History of excision of mass (09/28/21) Status post tendon repair History of esophagogastroduodenoscopy (EGD) H/O hand surgery Hx of colonoscopy Hx of lithotripsy Status post trigger finger release History of colon resection H/O excision of ganglion cyst H/O arthroscopy of right knee H/O wrist surgery H/O release of tendon Hx of cholecystectomy Family History Family History Father Myocardial infarction Hypertension Diabetes CVD (cardiovascular disease) Mother Restless leg syndrome Diabetes Paternal Aunt Breast cancer Uterine cancer Social History Social History Alcohol intake: current Alcohol intake frequency: 3 or more drinks per day Patient Tobacco Use Status: Current everyday Tobacco user Cigarettes Per Day: 3 Years Smoked: 30 +/- Smoked in Last 30 Days: No Use of substances other than those prescribed or required for medical reasons: No Advance Directives: Yes Advance Directives Information Provided: No Advance Directives on File: No Do you have a plan to hurt others: No Plan Physical Exam ED Vital Signs: Vital Signs - 24 hr 05/15/24 19:23 05/16/24 00:39 05/16/24 02:18 Temperature 97.3 F 98.9 F 98.6 F Pulse Rate 111 H 95 96 Respiratory Rate 18 16 16 Blood Pressure 176/75 H 135/90 H 129/62 Pulse Oximetry 97 98 95 Oxygen Delivery Method Room Air Room Air Room Air BMI result Body Mass Index 36.4 Const Nutritional Appearance: obese Orientation/consciousness: oriented to person and patient oriented x3 Limitations: no limitations HENMT Head: Yes normal to inspection Ears: external ears normal General nose exam: Normal external nose present Mouth: Normal oral and palatal mucosa present and oropharynx normal Throat: Yes posterior oropharynx normal Eyes General: appearance normal, both eyes and all related structures Neck Neck: Yes normal visual inspection Chest Chest palpation & inspection: normal inspection of the chest Resp Auscultation: clear to auscultation bilaterally Cardio Jugular venous distension: no JVD Rate: regular rate Rhythm: regular rhythm Heart sounds: S1 normal heart sound present and S2 normal heart sound present GI Inspection: Yes normal to inspection Palpation (GI): Soft to palpation, nontender and No hepatosplenomegaly present Auscultation: normal bowel sounds General: Yes no CVA tenderness Back/Spine/Pelvis Back: no CVA tenderness Skin General skin exam: no rashes or lesions noted Neuro General: oriented to person and patient oriented x3 Cranial nerves: Yes CN's II-XII intact bilaterally Motor exam (neuro): 5/5 motor strength present throughout Sensory Exam: No Sensory deficit (Neuro) Extrem General: Yes normal to inspection Psych Appearance: grossly normal Course Course Course Narrative: RME, this is a rapid medical exam performed by Charanjit Barry please refer to primary provider for complete H&P- 58 year old female with past medical history significant for type 2 diabetes, obesity, coronary artery disease, hypothyroidism, hypertension presents for evaluation of high blood sugar. She reports that her blood sugar was 466 just prior to arrival. Plan for labs including betaohydroxybutyrate. Reevaluation(s) Reevaluation #1: patient hydrated, sugar has come down will dc home Time: 04:14 Medications Administered Discontinued Medications Generic Name Dose Route Start Last Admin Trade Name Freq PRN Reason Stop Dose Admin Sodium Chloride 1,000 mls @ 999 mls/hr 05/16/24 00:30 05/16/24 03:08 Ns IVCONT 05/16/24 02:30 999 mls/hr .Q1H1M HOME Administration Insulin Human Lispro 10 unit 05/16/24 00:19 05/16/24 01:42 Insulin Lispro 100 Unit/Ml 3 Ml Vial SUBCUT 05/16/24 00:20 10 unit ONCE ONE Administration Medical Decision Making Differential Diagnosis Differential Diagnoses: The differential diagnosis associated with the presentation includes (UTI, hyperglycemia, dka) Admission/Observation Consideration of admission/observation: Escalation of care including admission/observation considered (upon arrival patient considered for admission) Lab Data 05/15/24 19:41 05/15/24 19:41 Labs: Lab Results 05/15/24 05/16/24 05/16/24 Range/Units 19:41 00:47 03:15 WBC 7.2 (4.8-10.8) X10*3/uL RBC 5.21 (4.20-5.50) X10*6/uL Hgb 14.2 (12.0-16.0) g/dl Hct 42.0 (37.0-47.0) % MCV 80.6 (80.0-98.0) fL MCH 27.3 (27.0-33.0) pg MCHC 33.8 (31.0-35.0) g/dl RDW 14.0 (11.0-16.0) % Plt Count 311 (160-400) X10*3/uL MPV 9.5 (9.4-12.3) fL Immature Gran % (Auto) 0.3 (0.0-0.4) % Neut % (Auto) 53.1 (45-73) % Lymph % (Auto) 36.5 (20-40) % [place] % (Auto) 7.5 (2-11) % Eos % (Auto) 2.2 (0-4) % Baso % (Auto) 0.4 (0-2) % Lymph # (Auto) 2.6 (1.2-4.9) X10*3/uL [place] # (Auto) 0.5 (0.1-1.2) X10*3/uL Eos # (Auto) 0.2 (0.0-0.4) X10*3/uL Baso # (Auto) 0.0 (0.0-0.2) X10*3/uL Abs Immat Gran (auto) 0.02 (0.00-0.03) X10*3/uL Absolute Neuts (auto) 3.9 (2.0-8.3) x10*3/uL Absolute Nucleated RBC 0.000 (0.0-0.012) X10*3/uL Nucleated RBC % (auto) 0.0 (0.0-0.2) /100WBC Sodium 132 L (135-145) mmol/L Potassium 3.6 (3.3-5.1) mmol/L Chloride 98 (96-108) mmol/L Carbon Dioxide 23 (22-29) mmol/L Anion Gap 15 (12-20) BUN 10 (9-16) mg/dL Creatinine 1.06 (0.5-1.4) mg/dL Estim Creat Clear Calc 74.6 Estimated GFR 53 POC Glucose 264 H (60-115) mg/dL Random Glucose 463 H* (60-115) mg/dL Calcium 9.6 (8.4-10.2) mg/dL Total Bilirubin 0.3 (0.0-1.0) mg/dL AST 11 (5-31) U/L ALT 19 (0-31) U/L Alkaline Phosphatase 121 H (39-117) U/L Total Protein 6.9 (6.5-8.0) g/dL Albumin 3.7 (3.5-5.0) g/dL Lipase 45 (8-78) U/L Beta-Hydroxybutyrate 0.12 (0.02-0.27) mmol/L Urine Color Yellow Urine Appearance Clear Urine pH 6.0 (5.0-9.0) Ur Specific [place] >= 1.030 H (1.005-1.025) Urine Protein Trace (Neg-Trace) mg/dL Urine Glucose (UA) >=1000 H (Negative) mg/dL Urine Ketones Negative (Negative) mg/dL Urine Blood Negative (Negative) Urine Nitrite Negative (Negative) Ur Leukocyte Esterase Negative (Negative) Urine RBC 0-2 (0-2) /HPF Urine WBC 0-5 (0-5) /HPF Ur Squamous Epith Cells 3-5 (0-2) /HPF Urine Bacteria None Seen (None Seen) Hyaline Casts 0-2 (0-2) /LPF External Record Review External record reviewed: Outpatient record and Prior outpatient labs Prescription Management I considered prescription management with: Antibiotic (no evidence of UTI) Chronic Conditions Patient?s care impacted by: Diabetes Discharge Plan Discharge Clinical Impression: Acute hyperglycemia Patient Disposition: Home, Self-Care Instructions: Diabetic Hyperglycemia (ED) Additional Instructions: You must see your doctor soon to make adjustments to your medication Prescriptions: No Action (DME) lancets [FreeStyle Lancets] 28 gauge misc See Rx Instructions .ROUTE .MEDSUPPLY Qty: 50 6RF Rx Instructions: Once a day levothyroxine 125 mcg tablet 125 mcg PO DAILY 30 Days Qty: 30 3RF ezetimibe 10 mg tablet 10 mg PO DAILY Qty: 60 3RF hydrochlorothiazide 12.5 mg tablet 12.5 mg PO DAILY Qty: 90 3RF ibuprofen 800 mg tablet 800 mg PO Q8H PRN (Reason: Pain) oxycodone 5 mg tablet 5 mg PO TID PRN (Reason: Pain) acetaminophen [Tylenol Extra Strength] 500 mg tablet 500 mg PO Q6H PRN (Reason: fever or pain) Qty: 14 0RF naproxen 500 mg tablet 500 mg PO BID PRN (Reason: pain) 10 Days Qty: 20 0RF diclofenac sodium [Aleve (diclofenac)] 1 % gel 2 g topical QID 7 Days Qty: 100 0RF Rx Instructions: apply to single elbow, wrist or hand; for hand includes palm/fingers/back of hand naloxone [Narcan] 4 mg/actuation spray,non-aerosol 4 mg intranasal Q2M PRN (Reason: opioid overdose) Qty: 2 1RF Rx Instructions: spray 1 dose into ONE nostril; alternate nostrils w each dose until help arrives amitriptyline 75 mg tablet 75 mg PO BEDTIME omeprazole 20 mg capsule,delayed release(DR/EC) 20 mg PO BID ropinirole 3 mg tablet 3 mg PO BEDTIME aripiprazole 2 mg tablet 2 mg PO DAILY duloxetine 60 mg capsule,delayed release(DR/EC) 60 mg PO DAILY (DME) nebulizers Misc See Rx Instructions .ROUTE Rx Instructions: As directed (DME) CPAP Machine/Device Device See Rx Instructions .ROUTE Rx Instructions: As directed (DME) nebulizers Misc See Rx Instructions .ROUTE Rx Instructions: As directed Trelegy Ellipta 200-62.5-25 mcg blister with device 1 inh inhalation DAILY 30 Days Qty: 60 12RF albuterol sulfate 2.5 mg /3 mL (0.083 %) solution for nebulization 2.5 mg inhalation QID PRN (Reason: shortness of breath or wheezing) Qty: 180 11RF atorvastatin 40 mg tablet 40 mg PO DAILY Qty: 60 3RF Trulicity 3 mg/0.5 mL pen injector subcut alprazolam 0.5 mg tablet 0.5 mg PO QID PRN isosorbide mononitrate 30 mg tablet extended release 24 hr 30 mg PO DAILY Qty: 60 3RF montelukast [Singulair] 10 mg tablet 10 mg PO BEDTIME 30 Days Qty: 30 11RF albuterol sulfate 90 mcg/actuation HFA aerosol inhaler 2 puff PO Q6H PRN (Reason: for wheezing) 30 Days Qty: 8.5 11RF Referrals: Virginie Monet MD [Primary Care Provider] - 1 day Print Language: Portuguese
[2024-05-15 19:45] LABS: MANUAL DIFF FLAG NO
[2024-05-15 19:46] LABS: Basophils Percent Auto 0.4 % (0-2); Eosinophils Absolute Auto 0.2 X10*3/uL (0.0-0.4); Eosinophils Percent Auto 2.2 % (0-4); Hemoglobin 14.2 g/dl (12.0-16.0); Imm Gran Abs Auto 0.02 X10*3/uL (0.00-0.03); Imm Gran Pct Auto 0.3 % (0.0-0.4); Lymphocytes Absolute Auto 2.6 X10*3/uL (1.2-4.9); Lymphocytes Percent Auto 36.5 % (20-40); Mean Corpuscular HGB Conc 33.8 g/dl (31.0-35.0); Mean Corpuscular Hemoglobin 27.3 pg (27.0-33.0); Mean Corpuscular Volume 80.6 fL (80.0-98.0); Mean Platelet Volume 9.5 fL (9.4-12.3); Monocytes Absolute Auto 0.5 X10*3/uL (0.1-1.2); Monocytes Percent Auto 7.5 % (2-11); Neutrophils Absolute Auto 3.9 x10*3/uL (2.0-8.3); Neutrophils Percent Auto 53.1 % (45-73); Platelet Count 311 X10*3/uL (160-400); Red Blood Count 5.21 X10*6/uL (4.20-5.50); White Blood Count 7.2 X10*3/uL (4.8-10.8)
[2024-05-15 20:04] LABS: Beta-Hydroxybutyrate 0.12 mmol/L (0.02-0.27)
[2024-05-15 20:18] LABS: Alanine Aminotransferase 19 U/L (0-31); Albumin Level 3.7 g/dL (3.5-5.0); Alkaline Phosphatase 121 U/L (39-117); Anion Gap 15 (12-20); Aspartate Amino Transferase 11 U/L (5-31); Bilirubin Total 0.3 mg/dL (0.0-1.0); Blood Urea Nitrogen 10 mg/dL (9-16); Calcium 9.6 mg/dL (8.4-10.2); Carbon Dioxide 23 mmol/L (22-29); Chloride 98 mmol/L (96-108); Creatinine Clr Calc Pharmacy 74.6; Estimated Glomerular Filt Rate 53; Glucose Random 463 mg/dL (60-115); Lipase 45 U/L (8-78); Potassium 3.6 mmol/L (3.3-5.1); Sodium 132 mmol/L (135-145); Total Protein 6.9 g/dL (6.5-8.0)
[2024-05-16 00:39] VITALS: BP 135/90; PULSE 95; RESP 16; TEMP 37.2; O2SAT 98
--- NOTE | 2024-05-16 00:47 | MHC.EDTECH ---
This pct just assumed care of Patient ,vitals taken ,Patient urine sample collected and sent to lab .
[2024-05-16 00:55] LABS: Appearance Urine Clear; Color Urine Yellow; Glucose Urine UA >=1000 mg/dL (Negative); Leukocyte Esterase Urine Negative (Negative); Nitrite Urine Negative (Negative); Specific Gravity - Urine >= 1.030 (1.005-1.025); UMIC TRIGGER UACC YES; Urine Blood Negative (Negative); Urine Ketones Negative (Negative); Urine Protein Trace mg/dL (Neg-Trace)
[2024-05-16 00:57] LABS: Bacteria Urine None Seen (None Seen); Hyaline Casts Urine 0-2 /LPF (0-2); RBC Urine 0-2 /HPF (0-2); WBC Urine 0-5 /HPF (0-5)
--- NOTE | 2024-05-16 01:05 | PC.NURSE ---
Pt is a pleasant 58 y/o female who presents from home for evaluation of a high sugar that has been steadiliy increasing over the past week. Pt reports this has never happened before. Pt reports visual changes, nausea, and left flank pain. No reported fevers. Last food intake was yesterday morning and last fluid intake last night at 1900 hours. Denies any recent fever/chills, recent travel or trauma. IV access established left hand, pt has very tiny veins.
[2024-05-16] MEDS: 0.9 % Sodium Chloride 1,000 ML 999 ML IVCONT ×2 (01:17→03:08)
[2024-05-16] MEDS: Insulin Lispro 100 UNIT/ML 3 ML VIAL 10 UNIT SUBCUT (01:42)
[2024-05-16 02:18] VITALS: BP 129/62; PULSE 96; RESP 16; TEMP 37; O2SAT 95
[2024-05-16 03:22] LABS: Glucose, Whole Blood 264 mg/dL (60-115)
[2024-05-16 04:17] VITALS: BP 141/63; PULSE 90; RESP 16; TEMP 36.7; O2SAT 97
[2024-05-16] MEDS: Insulin Lispro 100 UNIT/ML 3 ML VIAL SUBCUT (04:24)
[2024-05-16 04:40] VITALS: BP 176/75; PULSE 111; RESP 16; TEMP 36.3; O2SAT 97
== END 2024-05-16 04:46 | disposition home or self-care (01) ==
PROVIDERS: Physician Assistant; Emergency Provider Emergency Medicine; PCP Internal Medicine
DX: E11.65 Type 2 diabetes mellitus with hyperglycemia (principal); R35.0 Frequency of micturition; R11.2 Nausea with vomiting, unspecified; Z79.84 Long term (current) use of oral hypoglycemic drugs; Z79.85 Long-term (current) use of injectable non-insulin antidiabetic drugs; F17.210 Nicotine dependence, cigarettes, uncomplicated; Z79.899 Other long term (current) drug therapy
CPT/HCPCS: 36415; 80053; 81001; 82010; 82947; 83690; 85025; 96360; 96361; 99284

== ENCOUNTER 2024-05-20 07:00 | Outpatient (RCR) | payer MEDICARE, OTHER, SELFPAY | END 2024-06-27 07:16 | disposition home or self-care (01) | LOC: HO.PR 07:00 | PROVIDERS: PCP Internal Medicine; Visit Provider Hospitalist | DX: J44.9 Chronic obstructive pulmonary disease, unspecified (principal); R06.09 Other forms of dyspnea | CPT/HCPCS: 94618; 94625; 99212 ==

== ENCOUNTER 2024-07-07 08:19 | Outpatient (AMB) | payer OTHER, SELFPAY ==
[2024-07-07 08:26] VITALS: BMI 36.4
--- NOTE | 2024-07-07 08:26 | A.OFFVIS_ITS ---
Vital Signs 07/07/24 08:26 Height 5 ft 8 in Weight 239 lb 6 oz BMI 36.4 Intake Visit Reasons: Left knee pain and giving way Intake Note: Virginie is a 58 year old female who presents with complaints of progressively worsening left knee pain and giving way. She describes her pain as sharp in nature. The patient states that her symptoms have gotten worse over the last 4 years. Most of the pain is along the medial and anterior aspects of her left knee. She states that her left knee will give out several times per day. She has failed the last 6 weeks of conservative treatment which has included Tylenol, ibuprofen and physical therapy exercises. The patient states that she has not been able to ride a stationary bike because of her pain. Allergies adhesive tape Allergy (Severe, Verified 07/07/24 08:26) BLISTERS Tetanus Vaccines and Toxoid [TETANUS VACCINES & TOXOID] Allergy (Intermediate, Verified 07/07/24 08:26) SWELLING, REDNESS surgical tape Allergy (Severe, Uncoded 07/07/24 08:26) hives/boils Medication List - Last Reconciled 07/07/24 by Pete Varela MD acetaminophen (Tylenol Extra Strength) 500 mg PO Q6H PRN albuterol sulfate 90 mcg/actuation 2 puffs PO Q6H PRN 30 days albuterol sulfate 2.5 mg (3 mL) inhalation QID PRN amitriptyline 75 mg PO BEDTIME aripiprazole 2 mg PO DAILY atorvastatin 40 mg PO DAILY CPAP (CPAP Machine/Device) As directed duloxetine 60 mg PO DAILY [id number] 200-62.5-25 mcg (Trelegy Ellipta) 1 inh inhalation DAILY 30 days hydrochlorothiazide 12.5 mg PO DAILY ibuprofen 800 mg PO Q8H PRN isosorbide mononitrate ER 30 mg PO DAILY lancets (FreeStyle Lancets) Once a day levothyroxine 125 mcg PO DAILY 30 days montelukast (Singulair) 10 mg PO BEDTIME 30 days naloxone 4 mg/actuation (Narcan) 4 mg intranasal Q2M PRN naproxen 500 mg PO BID PRN 10 days nebulizers As directed nebulizers As directed omeprazole 20 mg PO BID oxycodone 5 mg PO TID PRN ropinirole 3 mg PO BEDTIME semaglutide (Ozempic) 0.5 mg subcut QWEEK [facility] Medical History Pulmonary hypertension Dyspnea Vitamin D deficiency Mixed irritable bowel syndrome Michael's thyroiditis Fibromyalgia Type 2 diabetes mellitus Obesity (BMI 30-39.9) Prediabetes Hypothyroidism BOY (obstructive sleep apnea) Hypertension Palpitations Tobacco dependence Pulmonary nodules Asthma-COPD overlap syndrome Surgical History History of excision of mass (09/28/21) Status post tendon repair History of esophagogastroduodenoscopy (EGD) H/O hand surgery Hx of colonoscopy Hx of lithotripsy Status post trigger finger release History of colon resection H/O excision of ganglion cyst H/O arthroscopy of right knee H/O wrist surgery H/O release of tendon Hx of cholecystectomy Family History Father Myocardial infarction Hypertension Diabetes CVD (cardiovascular disease) Mother Restless leg syndrome Diabetes Paternal Aunt Breast cancer Uterine cancer Social History Alcohol intake: current Alcohol intake frequency: 3 or more drinks per day Patient Tobacco Use Status: Current everyday Tobacco user Cigarettes Per Day: 3 Years Smoked: 30 +/- Physical Exam Vital Signs: BMI result Body Mass Index 36.4 Const Other: Well-nourished well-developed very friendly female awake alert and oriented x3 in no acute distress Extrem Other: Bilateral lower extremity examination shows good capillary refill, no skin lesions noted, normal sensation light touch Left knee examination shows a minimal effusion, minimal range of motion, tenderness along her medial joint line, positive Pasquale's test, no instability Quality Reporting (2019) Adult ([facility] 138/09/06/68) Smoking risk assessment performed?: Yes Patient Tobacco Use Status: Current everyday Tobacco user Results Reviewed Results Reviewed: Standing full weight-bearing x-rays of the patient's left knee show mild diffuse joint space narrowing, no acute bony abnormalities Assessment & Plan Assessment & Plan (1) Tear of medial meniscus of left knee: Code(s): S83.242A - Other tear of medial meniscus, current injury, left knee, initial encounter Category: Medical Plan Ms. Martins presents with progressively worsening left knee pain and mechanical symptoms most likely due to a tear of her medial meniscus. I will send the patient for an MRI of her left knee for further evaluation. I will see her back once the MRI is completed to discuss the findings and treatment options. Feel free to call me at any time should questions regarding her orthopedic management arise. Thank you very much for asking me to see this very friendly patient. I spent 20 minutes in reviewing the patient's records and imaging studies, seeing the patient and documenting in the medical record. Orders: Orders MR knee LT wo con Today S83.242A - Other tear of medial meniscus, current injury, left knee, initial encounter Coding Level of Care Code New Pt Level 3 (20819) Complex EM visit Add On G2211 Diagnoses Tear of medial meniscus of left knee S83.242A
== END 2024-07-07 08:55 | disposition home or self-care (01) ==
PROVIDERS: PCP Internal Medicine; Visit Provider Orthopaedic Surgery
DX: S83.242A Other tear of medial meniscus, current injury, left knee, initial encounter (principal)
CPT/HCPCS: 99203; G2211

== ENCOUNTER → 2024-07-07 08:19 | Outpatient (BNVA) | payer OTHER, SELFPAY | PROVIDERS: PCP Internal Medicine; Visit Provider Orthopaedic Surgery | DX: S83.242A Other tear of medial meniscus, current injury, left knee, initial encounter (principal) | CPT/HCPCS: 99202 ==

== ENCOUNTER 2024-08-01 13:53 | Outpatient (REF) | payer OTHER, SELFPAY ==
--- NOTE | ~2024-08-01 | MR_ITS ---
CLINICAL HISTORY: S83.242A - Other tear of medial meniscus, current injury, left knee, ini... MR left knee without gadolinium Comparison: None Findings: No acute fracture or pathologic bone lesion. Moderate-size simple appearing effusion. No tears of the cruciate or collateral ligaments. Patellar retinacula and iliotibial band are intact. Quadriceps, patellar, popliteus, and flexor tendons are intact. There is a tear of the posterior horn of the medial meniscus extending to the inferior articular surface. There are no other meniscal tears. IMPRESSION: Posterior horn medial meniscal tear with joint effusion. This document has been electronically signed by: Landon Steele MD on 08/02/2024 08:54:22
== END 2024-08-01 13:54 | disposition home or self-care (01) ==
LOC: HO.MRI 13:53
PROVIDERS: PCP Internal Medicine; Visit Provider Orthopaedic Surgery
DX: S83.242A Other tear of medial meniscus, current injury, left knee, initial encounter (principal)
CPT/HCPCS: 73721

== ENCOUNTER → 2024-08-01 13:59 | Outpatient (BNV) | payer OTHER, SELFPAY | PROVIDERS: PCP Internal Medicine; Visit Provider Specialist | DX: S83.242A Other tear of medial meniscus, current injury, left knee, initial encounter (principal) | CPT/HCPCS: 73721 ==

== ENCOUNTER 2024-08-13 11:28 | Outpatient (AMB) | payer OTHER, SELFPAY ==
--- NOTE | 2024-08-13 11:30 | MHC.OFFVIS ---
Vital Signs 08/13/24 11:31 Height 5 ft 8 in Weight 239 lb 6 oz BMI 36.4 Intake Visit Reasons: OV-LT knee MRI review Intake Note: Virginie is a 58 year old female who presents with complaints of progressively worsening left knee pain and giving way. She describes her pain as sharp in nature. The patient states that her symptoms have gotten worse over the last 4 years. Most of the pain is along the medial and anterior aspects of her left knee. She states that her left knee will give out several times per day. She has failed the last 6 weeks of conservative treatment which has included Tylenol, ibuprofen and physical therapy exercises. The patient states that she has not been able to ride a stationary bike because of her pain. Allergies adhesive tape Allergy (Severe, Verified 08/13/24 11:31) BLISTERS Tetanus Vaccines and Toxoid [TETANUS VACCINES & TOXOID] Allergy (Intermediate, Verified 08/13/24 11:31) SWELLING, REDNESS surgical tape Allergy (Severe, Uncoded 08/13/24 11:31) hives/boils Medication List - Last Reconciled 08/13/24 by Pete Varela MD acetaminophen (Tylenol Extra Strength) 500 mg PO Q6H PRN albuterol sulfate 90 mcg/actuation 2 puffs PO Q6H PRN 30 days albuterol sulfate 2.5 mg (3 mL) inhalation QID PRN amitriptyline 75 mg PO BEDTIME aripiprazole 2 mg PO DAILY atorvastatin 40 mg PO DAILY CPAP (CPAP Machine/Device) As directed duloxetine 60 mg PO DAILY [id number] 200-62.5-25 mcg (Trelegy Ellipta) 1 inh inhalation DAILY 30 days hydrochlorothiazide 12.5 mg PO DAILY ibuprofen 800 mg PO Q8H PRN isosorbide mononitrate ER 30 mg PO DAILY lancets (FreeStyle Lancets) Once a day levothyroxine 125 mcg PO DAILY 30 days montelukast (Singulair) 10 mg PO BEDTIME 30 days naloxone 4 mg/actuation (Narcan) 4 mg intranasal Q2M PRN naproxen 500 mg PO BID PRN 10 days nebulizers As directed nebulizers As directed omeprazole 20 mg PO BID oxycodone 5 mg PO TID PRN ropinirole 3 mg PO BEDTIME semaglutide (Ozempic) 0.5 mg subcut QWEEK [facility] Medical History Pulmonary hypertension Dyspnea Vitamin D deficiency Mixed irritable bowel syndrome Michael's thyroiditis Fibromyalgia Type 2 diabetes mellitus Obesity (BMI 30-39.9) Prediabetes Hypothyroidism BOY (obstructive sleep apnea) Hypertension Palpitations Tobacco dependence Pulmonary nodules Asthma-COPD overlap syndrome Surgical History History of excision of mass (09/28/21) Status post tendon repair History of esophagogastroduodenoscopy (EGD) H/O hand surgery Hx of colonoscopy Hx of lithotripsy Status post trigger finger release History of colon resection H/O excision of ganglion cyst H/O arthroscopy of right knee H/O wrist surgery H/O release of tendon Hx of cholecystectomy Family History Father Myocardial infarction Hypertension Diabetes CVD (cardiovascular disease) Mother Restless leg syndrome Diabetes Paternal Aunt Breast cancer Uterine cancer Social History Alcohol intake: current Alcohol intake frequency: 3 or more drinks per day Patient Tobacco Use Status: Current everyday Tobacco user Cigarettes Per Day: 3 Years Smoked: 30 +/- Physical Exam Vital Signs: BMI result Body Mass Index 36.4 Const Other: Well-nourished well-developed very friendly female awake alert and oriented x3 in no acute distress Extrem Other: Bilateral lower extremity examination shows good capillary refill, no skin lesions noted, normal sensation light touch Left knee examination shows a minimal effusion, minimal crepitus with range of motion, tenderness along her medial joint line, positive Pasquale's test, no Quality Reporting (2019) Adult ([facility] 138/09/06/68) Smoking risk assessment performed?: Yes Patient Tobacco Use Status: Current everyday Tobacco user Results Reviewed Results Reviewed: Standing full weight-bearing x-rays of the patient's left knee show minimal joint space narrowing, no acute bony abnormalities MRI of the patient's left knee shows mild diffuse degenerative changes as well as a tear of the medial meniscus Assessment & Plan Assessment & Plan (1) Tear of medial meniscus of left knee: Code(s): S83.242A - Other tear of medial meniscus, current injury, left knee, initial encounter Category: Medical Plan Ms. Martins presents with progressively worsening left knee pain and mechanical symptoms due to a medial meniscus tear. I had a lengthy discussion with the patient regarding the treatment options. At this point she has failed continued non operative treatments. The risks and benefits of left knee arthroscopic surgery were discussed at length with the patient. The patient wishes to proceed with surgery. Surgery will most likely involve left knee arthroscopic partial medial meniscectomy. The patient does understand that she may not get 100% relief of her symptoms depending on the severity of her degenerative changes. The patient will be scheduled for next available date. She will follow-up as instructed. Feel free to call me at any time should questions regarding her orthopedic management arise. I spent 22 minutes in reviewing the patient's records and imaging studies, seeing the patient and documenting in the medical record. Coding Level of Care Code Est Pt Level 3 (78779) Complex EM visit Add On G2211 Diagnoses Tear of medial meniscus of left knee S83.242A
[2024-08-13 11:31] VITALS: BMI 36.4
--- OUTSIDE RECORDS SUMMARY | 2024-08-13 13:55 | XMS_ITS | Encounter Summary ---
Author Organization [employer] Address [address] [facility] [address] 7t [place] [address] Care Team Providers Care Oral And Maxillofacial Surgeon Name Role Phone Virginie Monet MD Primary Care Provide r Reason for Visit * Reason Comments Med Refill Encounter Details Date Type Department Care Team ([facility] st Contact Info) Description 01/03/2024 Refill [facility]INE 230 [place], [place] [phone] Virginie Monet MD 230 [place], [place] [phone] Anxiety Social History Tobacco Use Types Packs/Day Years Used Date Smoking Tobacco: Every Day Cigarettes Passive Smoke Exposure: Current Smokeless Tobacco: Never Comments:5 cigarettes daily Alcohol Use Standard Drinks/Week Comments Never 0 (1 standard drink = 0.6 oz pur e alcohol) Alcohol Answer Date Recorded Frequency of Alcohol Consumption Not on file 05/29/2023 Average Number of Drinks Not on file 023 Frequency of Binge Drinking Not on file 05/16 Score 0 05/29/2023 Depression Answer Date Recorded Patient Health Questionnaire-9 Score 0 05/29/2023 Patient Health Questionnaire-9 Score 0 05/29/2023 Last PHQ-9: Questionnaire Data Not on file 1 07/29/2022 Housing Stability Answer Date Recorded What is your housing situation today? I have kamini eason 04/30/[address] you li ve. Do you have problems with any of the following? None of the above 04/30/2023 Food Insecurity Answer Date Recorded Within the past 12 months, y ou worried that your food would run out before you got money to buy more: Never True 04/30/2023 Within the past 12 months,th e food you bought just didn't last and you didn't have enough money to get more: Never True Transportation Answer Date Recorded In the past 12 months, has l ack of transportation kept you from medical appts, meetings, work or from getting things needed for daily living? No 04/30/2023 Utilities Answer Date Recorded In the past 12 months, has t he electric, gas, oil or water company threatened to shut off services in your home? No 04/30/2023 Depression Answer Date Recorded Patient Health Questionnaire-2 Score 0 05/29/2023 Comments Unknown Sex and Gender Information Value Date Recorded Sex Assigned at Female 05/15/2022 10:18 AM EDT Legal Sex Female 10:18 AM EDT Gender Identity Female 05/15/2022 10:18 AM EDT Sexual Orientation Choose not to disclose 2021 10:18 AM EDT documented as of this encounter Plan of Treatment Upcoming Encounters Date Type Department Care Team (Late st Contact Info) Description 09/09/2024 9:45 AM EST Office Visit [address] [address] 09/16/2024 10:45 AM EST Office Visit [address] [address] Virginie Monet MD [address] [place] [address] documented as of this encounter Visit Diagnoses Diagnosis Anxiety Anxiety state, unspecified documented in this encounter Additional Health Concerns Assessment Noted Time PHQ-9 Depression Total Score: 0 05/29/20 23 2:13 PM EST documented as of this encounter Care Teams Oral And Maxillofacial Surgeon Relationship Specialty Start Date End Date Virginie Monet MD [address] [place] [address] PCP - General Family Medicine 07/30/20 documented as of this encounter
--- OUTSIDE RECORDS SUMMARY | 2024-08-13 13:55 | XMS_ITS | Encounter Summary ---
Author Organization [employer] Address 75 [facility] 7t [place] [address] Care Team Providers Care Crusher And Binder Operator Name Role Phone Virginie Monet MD Primary Care Provide r Reason for Visit * Reason Onset Date Comments Med Refill 02/05/2023 Encounter Details Date Type Department Care Team ([facility] st Contact Info) Description 02/05/2023 Telephone [facility] MED[facility]INE 230 [place], [place] [phone] Virginie Monet MD 230 [place] [address] Med Refill Social History Tobacco Use Types Packs/Day Years Used Date Smoking Tobacco: Every Day Cigarettes Smokeless Tobacco: Never Comments:5 cigarettes daily Alcohol Use Standard Drinks/Week Comments Never 0 (1 standard drink = 0.6 oz pur e alcohol) Depression Answer Date Recorded Patient Health Questionnaire-9 Score 0 11/14/2022 Depression Answer Date Recorded Patient Health Questionnaire-2 Score 0 11/14/2022 Comments Unknown Sex and Gender Information Value Date Recorded Sex Assigned at Female 05/15/2022 10:18 AM EDT Legal Sex Female 10:18 AM EDT Gender Identity Female 05/15/2022 10:18 AM EDT Sexual Orientation Choose not to disclose 2021 10:18 AM EDT COVID-19 Exposure Response Date Recorded In the last 10 days, have yo u been in contact with someone who was confirmed or suspected to have Coronavirus/COVID-19? No / Unsure 01/12/2023 8:33 AM EDT documented as of this encounter Miscellaneous Notes * Telephone Encounter - Elsa Ramos - 02/05/2023 12:01 PM EDT Tc from pt requesting med refill for medication oxyCODONE (Roxicodone) 5 MG immediate release tablet. documented in this encounter Plan of Treatment Upcoming Encounters Date Type Department Care Team (Late st Contact Info) Description 09/09/2024 9:45 AM EST Office Visit [facility] [address] [place] [address] 09/16/2024 10:45 AM EST Office Visit [address] [address] Virginie Monet MD [address] [place] [address] documented as of this encounter Visit Diagnoses Not on filedocumented in this encounter Additional Health Concerns Assessment Noted Time PHQ-9 Depression Total Score: 0 11/15/19 23 9:09 AM EDT documented as of this encounter Care Teams Crusher And Binder Operator Relationship Specialty Start Date End Date Virginie Monet MD [address] [place] [phone] PCP - General Family Medicine 07/30/20 documented as of this encounter
--- OUTSIDE RECORDS SUMMARY | 2024-08-13 13:55 | XMS_ITS | Encounter Summary ---
Author Organization [employer] Address 75 [facility] 7t [place] [address] Care Team Providers Care Container Maker Name Role Phone Virginie Monet MD Primary Care Provide r Reason for Visit * Reason Onset Date Comments Appointment Request 02/05/2024 Encounter Details Date Type Department Care Team ([facility] Contact Info) Description 02/05/2024 Telephone [facility] 230 [place], [place] [phone] Virginie Monet MD 230 [place] [address] Appointment Request Social History Tobacco Use Types Packs/Day Years [...] Answer Date Recorded Patient Health Questionnaire-9 Score 15 01/14/2024 Patient Health Questionnaire-9 Score 15 01/14/2024 Last PHQ-9: Questionnaire Data Not on file 0 01/14/2024 Housing Stability Answer Date Recorded What is [...] Answer Date Recorded Patient Health Questionnaire-2 Score 6 01/14/2024 Comments Unknown Sex and Gender Information Value Date Recorded Sex Assigned at Female 05/15/2022 10:18 AM EDT Legal Sex Female 10:18 AM EDT Gender Identity Female 05/15/2022 10:18 AM EDT Sexual Orientation Choose not to disclose 2021 10:18 AM EDT documented as of this encounter Miscellaneous Notes * Telephone Encounter - Chicho Raman - 02/05/2024 8:04 AM EDT Tc from patient calling to cancel appt for 02/04 due to not feeling well please return call to patient to reschedule documented in this encounter Plan of Treatment Upcoming Encounters Date Type Department Care Team (Late st Contact Info) Description 09/09/2024 9:45 AM EST Office Visit [facility] [address] [place] [address] 09/16/2024 10:45 AM EST Office Visit [facility] [address] [place] [address] Virginie Monet MD [address] [place] [address] documented as of this encounter Visit Diagnoses Not on filedocumented in this encounter Additional Health Concerns Assessment Noted Time PHQ-9 Depression Total Score: 15 024 11:32 AM EDT documented as of this encounter Care Teams Container Maker Relationship Specialty Start Date End Date Virginie Monet MD [address] [place] [address] PCP - General Family Medicine 07/30/20 documented as of this encounter
--- OUTSIDE RECORDS SUMMARY | 2024-08-13 13:55 | XMS_ITS | Encounter Summary ---
Author Organization [employer] Address [address] [facility] [address] 7t [place] [address] Care Team Providers Care Nursing Home Assistant Administrator Name Role Phone Virginie Monet MD Primary Care Provide r Encounter Details Date Type Department Care Team ([facility] Contact Info) Description 10/12/2023 Orders Only [facility]INE 230 [place], [place] [phone] Virginie Monet MD [address] [place] [address] Social History Tobacco Use Types Packs/Day Years [...] Description 09/09/2024 9:45 AM EST Office Visit [address] [address] 09/16/2024 10:45 AM EST Office Visit [address] [address] Virginie Monet MD [address] [place] [address] documented as of this encounter Visit Diagnoses Not on filedocumented in this encounter Additional Health Concerns Assessment Noted Time PHQ-9 Depression Total Score: 0 05/29/20 23 2:13 PM EST documented as of this encounter Care Teams Nursing Home Assistant Administrator Relationship Specialty Start Date End Date Virginie Monet MD [address] [place] [address] PCP - General Family Medicine 07/30/20 documented as of this encounter
--- OUTSIDE RECORDS SUMMARY | 2024-08-13 13:55 | XMS_ITS | Encounter Summary ---
Author Organization [employer] Address [address] [facility] [address] 7t [place] [address] Care Team Providers Care Slip Tender Name Role Phone Virginie Monet MD Primary Care Provide r Encounter Details Date Type Department Care Team ([facility] Contact Info) Description 05/19/2024 Orders Only [facility] 230 [place], [place] [phone] Virginie Monet MD 230 [place], [place] [phone] Social History Tobacco Use Types Packs/Day Years [...] Patient Health Questionnaire-2 Score 6 01/14/2024 Comments No Sex and Gender Information Value Date Recorded [...] Description 09/09/2024 9:45 AM EST Office Visit [facility] [address] [place] [address] 09/16/2024 10:45 AM EST Office Visit [address] [address] Virginie Monet MD [address] [place] [address] documented as of this encounter Visit Diagnoses Not on filedocumented in this encounter Additional Health Concerns Assessment Noted Time PHQ-9 Depression Total Score: 15 024 11:32 AM EDT documented as of this encounter Care Teams Slip Tender Relationship Specialty Start Date End Date Virginie Monet MD [address] [place] [address] PCP - General Family Medicine 07/30/20 documented as of this encounter
--- OUTSIDE RECORDS SUMMARY | 2024-08-13 13:55 | XMS_ITS | Encounter Summary ---
Author Organization [employer] Address [address] [facility] [address] 7t [place] [address] Care Team Providers Care Stress Test Technician Name Role Phone Virginie Monet MD Primary Care Provide r Reason for Visit * Reason Comments Med Refill Encounter Details Date Type Department Care Team ([facility] st Contact Info) Description 07/23/2024 Refill [facility] 230 [place], [place] [phone] Virginie Monet MD 230 [place], [place] [phone] Depression, unspecified depression type Social History Tobacco Use Types Packs/Day Years [...] Description 09/09/2024 9:45 AM EST Office Visit [facility] [address] [place] [address] 09/16/2024 10:45 AM EST Office Visit [address] [address] Virginie Monet MD [address] [place] [address] documented as of this encounter Visit Diagnoses Diagnosis Depression, unspecified depression type documented in this encounter Additional Health Concerns Assessment Noted Time PHQ-9 Depression Total Score: 15 024 11:32 AM EDT documented as of this encounter Care Teams Stress Test Technician Relationship Specialty Start Date End Date Virginie Monet MD [address] [place] [address] PCP - General Family Medicine 07/30/20 documented as of this encounter
--- OUTSIDE RECORDS SUMMARY | 2024-08-13 13:55 | XMS_ITS | Encounter Summary ---
Author Organization [employer] Address [address] [facility] [address] 7t [place] [address] Care Team Providers Care Shake Packer Name Role Phone Virginie Monet MD Primary Care Provide r Reason for Visit * Reason Comments Med Refill Encounter Details Date Type Department Care Team ([facility] st Contact Info) Description 08/01/2024 Refill [facility] MEDICINE 230 [place], [place] [phone] Virginie Monet MD 230 [place], [place] [phone] Essential hypertension Social History Tobacco Use Types Packs/Day Years [...] Description 09/09/2024 9:45 AM EST Office Visit [facility] MEDICINE [address] [place] [address] 09/16/2024 10:45 AM EST Office Visit [address] [address] Virginie Monet MD 230 [place] [address] documented as of this encounter Visit Diagnoses Diagnosis Essential hypertension Unspecified essential hypertension documented in this encounter Additional Health Concerns Assessment Noted Time PHQ-9 Depression Total Score: 15 024 11:32 AM EDT documented as of this encounter Care Teams Shake Packer Relationship Specialty Start Date End Date Virginie Monet MD [address] [place] [address] PCP - General Family Medicine 07/30/20 documented as of this encounter
--- OUTSIDE RECORDS SUMMARY | 2024-08-13 13:55 | XMS_ITS | Encounter Summary ---
Author Organization [employer] Address [address] [facility] [address] 7t [place] [address] Care Team Providers Care Preparation Supervisor Freezing Name Role Phone Virginie Monet MD Primary Care Provide r Reason for Visit * Reason Onset Date Comments Nurse Triage 05/19/2024 Encounter Details Date Type Department Care Team ([facility] st Contact Info) Description 05/19/2024 Telephone [facility] MEDICINE 230 [place], [place] [phone] Virginie Monet MD 230 [place] [address] Nurse Triage Social History Tobacco Use Types Packs/Day Years [...] encounter Miscellaneous Notes * Telephone Encounter - Vivien Mercer RN - 05/19/2024 1:25 PM EST Call returned to Virginie Martins to triage below. Reports having elevated BS reading of 406mg/dL. Per pt has not been able to obtain Humalog rx that was sent on 05/16/24. Pt is having mild dry mouth and urianry frequency. Pt denies any MENA. Pt alert and oriented. Pt has already taken AM dose of Metformin. Pt advised of notes from t/c encounter regarding new rx for Humolog sent. Pt advised to follow up with Pharmacy. If not able to obtain insulin today can return to [facility] for exam today and possible insulin admin to reduce BS until Humalog processed at pharmacy. Advised to increase water intake, avoid added sugars, carbs or sugary drinks. Pt agrees. Sent to PCP as FYI> Protocol Used: Diabetes - High Blood Sugar (Adult) Protocol-Based Disposition: Discuss with PCP and Callback by Nurse within 1 Hour Future Appointments Date Time Provider Department Center 05/27/2024 9:45 AM [facility] CHRONIC [facility] MEDICINE [facility] 05/29/2024 11:30 AM [facility] RED TEAM NURSE MEDICINE [facility] Video visit offer not recorded Positive Triage Question: * Blood glucose > 400 mg/dL (22.2 mmol/L) * All higher-acuity triage questions were negative Care Advice Discussed: * High Blood Sugar (Hyperglycemia) * Treatment - Liquids * Continue Insulin * Diabetes Pills * Reasons To Call Back - Blood glucose over 300 mg/dL (16.7 mmol/L), two or more times in a row. - You become worse * Telephone Encounter - Gamaliel Mathew - 05/19/2024 1:08 PM EST Symptom: High Blood Sugar - Caller Reports Outcome: Talk to a nurse or provider within 15 minutes Reason: Known blood sugar above 300 The caller accepted this outcome. Please contact at [phone] documented in this encounter Plan of Treatment Upcoming Encounters Date Type Department Care Team (Late st Contact Info) Description 09/09/2024 9:45 AM EST Office Visit [facility] MEDICINE [address] [place] [address] 09/16/2024 10:45 AM EST Office Visit [address] [address] Virginie Monet MD [address] [place] [address] documented as of this encounter Visit Diagnoses Not on filedocumented in this encounter Additional Health Concerns Assessment Noted Time PHQ-9 Depression Total Score: 15 024 11:32 AM EDT documented as of this encounter Care Teams Preparation Supervisor Freezing Relationship Specialty Start Date End Date Virginie Monet MD [address] [place] [address] PCP - General Family Medicine 07/30/20 documented as of this encounter
--- OUTSIDE RECORDS SUMMARY | 2024-08-13 13:55 | XMS_ITS | Encounter Summary ---
Author Organization [employer] Address 75 [facility] 7t [place] [address] Care Team Providers Care Photographer'S Assistant Name Role Phone Virginie Monet MD Primary Care Provide r Reason for Visit * Reason Onset Date Comments Medication Question 05/19/2024 Encounter Details Date Type Department Care Team ([facility] Contact Info) Description 05/19/2024 Telephone [facility]ICINE 230 [place], [place] [phone] Virginie Monet MD 230 [place] [address] Medication Question Social History Tobacco Use Types Packs/Day Years [...] encounter Miscellaneous Notes * Telephone Encounter - Delmis Mcnamara RN - 05/19/2024 4:24 PM EST Tc [facility] requesting clarification on script for pen needle 31G x 5 mm misc on how often pt should be using pen needle, states directions need to be more specific. Message forwarded to provider for review. * Telephone Encounter - Gamaliel Mathew - 05/19/2024 2:59 PM EST Tc kalie kelly with [facility] requesting clarification on script for pen needle 31G x 5 mmmisc , states directions need to be more specific. Please contact at [phone] documented in this encounter Plan of Treatment Upcoming Encounters Date Type Department Care Team (Late st Contact Info) Description 09/09/2024 9:45 AM EST Office Visit [facility] 230 [place] [address] 09/16/2024 10:45 AM EST Office Visit [facility] 230 [place] [address] Virginie Monet MD 230 [place] [address] documented as of this encounter Visit Diagnoses Not on filedocumented in this encounter Additional Health Concerns Assessment Noted Time PHQ-9 Depression Total Score: 15 024 11:32 AM EDT documented as of this encounter Care Teams Photographer'S Assistant Relationship Specialty Start Date End Date Virginie Monet MD 230 [place] [address] PCP - General Family Medicine 07/30/20 documented as of this encounter
--- OUTSIDE RECORDS SUMMARY | 2024-08-13 13:55 | XMS_ITS | Encounter Summary ---
Author Organization [employer] Address 75 [facility] 7t [place] [address] Care Team Providers Care Special Diet Cook Name Role Phone Virginie Monet MD Primary Care Provide r Reason for Visit * Reason Onset Date Comments Appointment Request 07/28/2024 Encounter Details Date Type Department Care Team ([facility] Contact Info) Description 07/28/2024 Telephone [facility] MEDICINE 230 [place], [place] [phone] Virginie Monet MD 230 [place] [address] Appointment Request Social History Tobacco Use Types [...] encounter Miscellaneous Notes * Telephone Encounter - Benita Mahmood RN - 07/30/2024 8:53 AM EST Return TC to patient, chronic pain group rescheduled for 08/12/24 @ 9:45am * Telephone Encounter - Avel Reyes - 07/28/2024 4:48 PM EST TC from pt tested positive for covid and had to cancel pain management group . Would like to reschedule for the next group . documented in this encounter Plan of Treatment Upcoming Encounters Date Type Department Care Team (Late st Contact Info) Description 09/09/2024 9:45 AM EST Office Visit [facility] MEDICINE [address] [place] [address] 09/16/2024 10:45 AM EST Office Visit [facility] MEDICINE [address] [place] [address] Virginie Monet MD [address] [place] [address] documented as of this encounter Visit Diagnoses Not on filedocumented in this encounter Additional Health Concerns Assessment Noted Time PHQ-9 Depression Total Score: 15 024 11:32 AM EDT documented as of this encounter Care Teams Special Diet Cook Relationship Specialty Start Date End Date Virginie Monet MD 230 [facility] [place] [address] PCP - General Family Medicine 07/30/20 documented as of this encounter
--- OUTSIDE RECORDS SUMMARY | 2024-08-13 13:55 | XMS_ITS | Encounter Summary ---
Author Organization [employer] Address 75 [facility] 7t [place] [address] Care Team Providers Care Heavy Equipment Sales Manager Name Role Phone Virginie Monet MD Primary Care Provide r Reason for Visit * Reason Onset Date Comments Med Refill 06/04/2024 Encounter Details Date Type Department Care Team ([facility] Contact Info) Description 06/04/2024 Telephone [facility]INE 230 [place], [place] [phone] Virginie Monet MD 230 [place] [address] Med Refill Social History Tobacco Use Types [...] * Telephone Encounter - Elsa Ramos - 06/04/2024 8:23 AM EST TC from pt requesting medication refill. Medications needing refill : oxyCODONE (Roxicodone) 5 MG immediate release tablet To be sent to: [id number] - [place], [place] - [address] [facility] documented in this encounter Plan of Treatment Upcoming Encounters Date Type Department Care Team (Late st Contact Info) Description 09/09/2024 9:45 AM EST Office Visit [facility] [address] [place] [phone] 09/16/2024 10:45 AM EST Office Visit [facility] 230 [place] [address] Virginie Monet MD 230 [place] [address] documented as of this encounter Visit Diagnoses Not on filedocumented in this encounter Additional Health Concerns Assessment Noted Time PHQ-9 Depression Total Score: 15 024 11:32 AM EDT documented as of this encounter Care Teams Heavy Equipment Sales Manager Relationship Specialty Start Date End Date Virginie Monet MD 230 [place] [address] PCP - General Family Medicine 07/30/20 documented as of this encounter
--- OUTSIDE RECORDS SUMMARY | 2024-08-13 13:55 | XMS_ITS | Data Portability ---
Author Organization [employer] Address [address] [place] [phone] Care Team Providers Care Medical Accounting Clerk Name Role Phone HIM CCA OTHER SHANKAR SON Primary Care Provider Assessment No assessment recorded. Plan of Treatment Reminders Order Date Submit Date Provider Last Modified By Organization Details Last Modified Time Details Appointments None record ed. Lab None record ed. Referral None record ed. Procedures None record ed. Surgeries None record ed. Imaging None record ed. Medication Orders None record ed. Patient TargetsNo targets recorded. Patient InstructionsNo instructions recorded. Reason for Referral None Reported. Medical Equipment None Reported. Medications Name Sig Start Date Stop Date Status Note LastModified by Organization Details LastModified Time atorvastatin 40 mg tablet TAKE 1 TABLET BY MOUTH DAILY active Not Available Not Available Not Available metformin 500 mg tablet TAKE 1 TABLET BY MOUTH TWICE DAILY WITH THE MORNING AND EVENING MEAL active Not Available Not Available No t Available primidone 50 mg tablet TAKE 1 TABLET BY MOUTH TWICE DAILY active Not Available Not Available No t Available albuterol sulfate 2.5 mg/3 mL (0.083 %) solution for nebulization INHALE 3 MLS FOUR TIMES DAILY NEEDED FOR SHORTNESS OF BREATH OR WHEEZING active Not Available Not Available Not Available ibuprofen 800 mg tablet active Not Available Not Available Not Available amitriptylin e 75 mg tablet active Not Available Not Available Not Available prednisone 20 mg tablet active Not Available Not Available Not Available isosorbide mononitrate ER 30 mg tablet,exten ded release 24 hr TAKE 1 TABLET BY MOUTH DAILY active Not Available Not Available Not Available ropinirole 3 mg tablet TAKE 1 TABLET BY MOUTH DAILY active Not Available Not Available Not Available alprazolam 0.5 mg tablet TAKE 1 TABLET BY MOUTH FOUR TIMES DAILY NEEDED FOR ACUTE ANXIETY active Not Available Not Available No t Available 1-4 [employer] Ultra Test strips USE DIRECTED TWICE DAILY active Not Available Not Available Not Available glipizide ER 2.5 mg tablet, extended release 24 hr active Not Available Not Available Not Available levothyroxin e 125 mcg tablet active Not Available Not Available Not Available omeprazole 20 mg capsule,smita yed release TAKE 1 CAPSULE BY MOUTH IN THE MORNING AND AT BEDTIME active Not Available Not Available No t Available furosemide 20 mg tablet TAKE 1 TABLET BY MOUTH DAILY FOR 7 DAYS active Not Available Not Available N ot Available polyethylene glycol 3350 17 gram/dose oral powder active Not Available Not Available Not Available albuterol sulfate HFA 90 mcg/actuatio n aerosol inhaler INHALE 2 PUFFS BY MOUTH EVERY 4 TO 6 HOURS NEEDED FOR WHEEZING active Not Available Not Available No t Available sumatriptan 20 mg/actuation nasal spray USE 1 SPRAY IN EACH NOSTRIL EVERY DAY NEEDED active Not Available Not Available No t Available amoxicillin 875 mg-potassium clavulanate 125 mg tablet TAKE 1 TABLET BY MOUTH TWICE DAILY active Not Available Not Available No t Available oxycodone 5 mg tablet active Not Available Not Available No t Available duloxetine 60 mg capsule,smita yed release active Not Available Not Available Not Available Flovent HFA 220 mcg/actuatio n aerosol inhaler INHALE 1 PUFF BY MOUTH TWICE DAILY active Not Available Not Available No t Available aripiprazole 2 mg tablet active Not Available Not Available Not Available hydrochlorot hiazide 12.5 mg tablet TAKE 1 TABLET BY MOUTH DAILY active Not Available Not Available Not Available diclofenac 1 % topical gel APPLY 1 INCH TOPICALLY TO AFFECTED AREA EVERY MORNING AND EVERY NIGHT AT BEDTIME active Not Available Not Available N ot Available blood pressure test kit-large cuff USE TO CHECK BLOOD PRESSURE ONCE DAILY active Not Available Not Available N ot Available Anoro Ellipta 62.5 mcg-25 mcg/actuatio n powder for inhalation INHALE 1 PUFF BY MOUTH DAILY active Not Available Not Available Not Available Trulicity 1.5 mg/0.5 mL subcutaneous pen injector INJECT ONE PEN (=1.5MG) SUBCUTANEOU SLY ONCE A WEEK DIRECTED active Not Available Not Available No t Available Trulicity 0.75 mg/0.5 mL subcutaneous pen injector ADMINISTER 0.75 MG UNDER THE SKIN 1 TIME EVERY WEEK active Not Available Not Available N ot Available OneTouch Delica Plus Lancet 30 gauge USE DIRECTED TWICE DAILY active Not Available Not Available Not Available Sodium Fluoride 5000 Plus 1.1 % dental cream BRUSH TEETH EVERY MORNING AND AT BEDTIME DIRECTED active Not Available Not Available Not Available Trulicity 3 mg/0.5 mL subcutaneous pen injector ADMINISTER 3 MG UNDER THE SKIN 1 TIME EVERY WEEK active Not Available Not Available No t Available Trelegy Ellipta 200 mcg-62.5 mcg-25 mcg powder for inhalation INHALE 1 PUFF BY MOUTH DAILY active Not Available Not Available Not Available [employer]ant COVID-19 Rapid At-Home kit TEST DIRECTED TODAY active Not Available Not Available No t Available Ozempic 0.25 mg or 0.5 mg (2 mg/3 mL) subcutaneous pen injector INJECT 0.5 MG UNDER THE SKIN EVERY WEEK active Not Available Not Available N ot Available Vitals Date Recorded Respiratory rate Heart rate Body temperature Oxygen saturation Oxygen saturation in Arterial blood by Pulse oximetry Systolic blood pressure Diastolic blood pressure Provider Name and Address Organization Details Last Updated DateTime 4 16 /min 88 /min 99.2 [degF] 98 % 98 % 200 mm[Hg] 110 mm[Hg] Not Available [facility] - production 4 20:21:08 Social History None recorded. Functional Status None recorded. Mental Status None recorded. Family History Nothing Reported. Medical History No medical history recorded. Gynecological HistoryNo gynecological history recorded. Obstetrics History GPAL:G 0 P 0 0 0 0 Past Encounters Encounter ID Performer Location Encounter Start Date Encounter Closed Date Diagnosis/Indication Diagnosis SNOMED-CT Code Diagnosis ICD10 Code Diagnosis Note [id number] Bryce Rivera MD [facility] [address] [place] [phone] 03/04/2024 20:21:06 03/04/2024 22:03:09 Headache 11620579 R51.9 Reports a history of migraines, but this headache is different. Noted to be significan tly hypertensi ve. Stroke screen negative. Given change in semiology of headache associated with significan t hypertensi on, will refer to the ED for CT imaging, considerat ion of hypertensi ve emergency, etc. Health Concerns Section Related Observation LastModified by Organization Detai ls LastModified Time None Recorded Concern Status LastModified by Organization Details LastModified Time None Recorded Advance Directives Directive None Recorded Payers Encounter Date Sequence Insurance Name Policy Number Policy Wills Covered Member ID Wills Member ID Guarantor Name 03/04/2024 1 [facility] - DOS ON OR AFTER 2022 - DUAL ELIGIBLE - SKILLED NURSING OPTIONS AND ONE CARE (MEDICARE REPLACEMENT/ADV ANTAGE - HMO) Shankar Martins [id number] Shankar Martins Notes Date Note Type Note Provider Name and Address Organization Details Recorded Time 03/04/2024 text/html [facility] Nurse Triage Notes (Racheal Pabon): Reason For Request: Pt reporting severe headache for 3 weeks>suffers from migraines and has taken medication with no improvements>162/90 BP Chief Complaints: Headache PMH: Hypertension, Other Allergies: No Known Pain Assessment: Level 10 out of 10 Comments: Mobile Service Rv Technician verified the member's name//address and phone number. Headache x3 weeks. Left sided headache and left ear. History of Migraines. Took Sumatriptan nasal spray as prescribed. Takes as needed. BP 162/90. Takes Isosorbide daily. No recent changes in BP medicaiton. Denies chest pain or shortness of breath. No head trauma. Speech clear. Answering questions appropriately. Education provided on the response time and the member was advised to monitor reported s/s and seek emergency treatment if needed. ................... ................... ................... ................... ................... ................... ................... ........ Freelance Recruiter Note From Ho Joe: Dispatched to the call address for the patient with a headache. pt. was found alert and oriented x3 in her apartment c/o a tension headache for 3 weeks history of migraines but not feeling similar to her migraine headaches. she had been taking all of her medications and nothing relieved the pain. pt. noted she was concerned her blood pressure was high as well. positive dizziness worsening when standing up and noted a family history of strokes and aneurysm. no blood thinners on medication list. pt. vitals assessed on scene. -stroke scale findings -chest pain -sob -blurred vision -abd pain -nvd -weakness -urinary issues -bowel issues. pt. assessment airway open and patent breathing non labored circulation +radial pulse -heent abnormalities -jvd -tracheal deviation +and= chest rise and fall abd soft and non tender pelvis in tact +cms in all extremities -dcapbtls -stroke scale findings. C contacted and noted the patient should be evaluated at the emergency room due to symptoms and the headache being different than her normal migraines. Pt. agreed to transport and agreed to go by ambulance. 911 contacted [facility] on scene and [facility] took patient care. all times are approx.report completed by sarah joe ................... ................... ................... ................... ................... ................... ................... ........ Disposition: Fulfilled Bryce Rivera MD [address] [place] [address],[address], [place], [phone], [employer] 03/04/2024 21:30:34 OBGyn Episode No OBEpisode recorded.
--- OUTSIDE RECORDS SUMMARY | 2024-08-13 13:55 | XMS_ITS | Encounter Summary ---
Author Organization [employer] Address [address] [place] [address] Care Team Providers Care Director Of Materials Management Name Role Phone Virginie Monet MD Primary Care Provide r Encounter Details Date Type Department Care Team ([facility] Contact Info) Description 10/31/2023 Telephone [facility] [address] [place], [place] [phone] Virginie Monet MD [address] [place] [address] Social History Tobacco Use Types Packs/Day Years [...] encounter Miscellaneous Notes * Telephone Encounter - Valery Braswell RN - 10/31/2023 11:32 AM EDT Faxed referral for NEW CAR SALESPERSON services for Ry today, per patient request. documented in this encounter Plan of Treatment Upcoming Encounters Date Type Department Care Team (Late st Contact Info) Description 09/09/2024 9:45 AM EST Office Visit [address] [address] 09/16/2024 10:45 AM EST Office Visit [facility] [address] [place] [address] Virginie Monet MD [address] [place] [address] documented as of this encounter Visit Diagnoses Not on filedocumented in this encounter Additional Health Concerns Assessment Noted Time PHQ-9 Depression Total Score: 0 05/29/20 23 2:13 PM EST documented as of this encounter Care Teams Director Of Materials Management Relationship Specialty Start Date End Date Virginie Monet MD [address] [place] [phone] PCP - General Family Medicine 07/30/20 documented as of this encounter
--- OUTSIDE RECORDS SUMMARY | 2024-08-13 13:55 | XMS_ITS | Encounter Summary ---
Author Organization [employer] Address [address] [place] [address] Care Team Providers Care E D Tech Name Role Phone Virginie Monet MD Primary Care Provide r Reason for Visit * Reason Comments Med Refill Encounter Details Date Type Department Care Team ([facility] st Contact Info) Description 08/05/2024 Refill [facility] [address] [place], [place] [phone] Virginie Monet MD [address] [place], [place] [phone] Michael's thyroiditis Social History Tobacco Use Types Packs/Day Years [...] Description 09/09/2024 9:45 AM EST Office Visit [facility] [address] [place] [address] 09/16/2024 10:45 AM EST Office Visit [facility] [address] [place] [address] Virginie Monet MD [address] [place] [address] documented as of this encounter Visit Diagnoses Diagnosis Michael's thyroiditis Chronic lymphocytic thyroiditis documented in this encounter Additional Health Concerns Assessment Noted Time PHQ-9 Depression Total Score: 15 024 11:32 AM EDT documented as of this encounter Care Teams E D Tech Relationship Specialty Start Date End Date Virginie Monet MD [address] [place] [address] PCP - General Family Medicine 07/30/20 documented as of this encounter
--- OUTSIDE RECORDS SUMMARY | 2024-08-13 13:55 | XMS_ITS | Encounter Summary ---
Author Organization [employer] Address [address] [facility] 7t [place] [address] Care Team Providers Care Seaming Inspector Name Role Phone Virginie Monet MD Primary Care Provide r Encounter Details Date Type Department Care Team (Latest Contact Info) Description 08/12/2024 Travel Social History Tobacco Use Types Packs/Day Years [...] Description 09/09/2024 9:45 AM EST Office Visit [address] [address] 09/16/2024 10:45 AM EST Office Visit [address] [address] Virginie Monet MD [address] [place] [address] documented as of this encounter Visit Diagnoses Not on filedocumented in this encounter Additional Health Concerns Assessment Noted Time PHQ-9 Depression Total Score: 15 024 11:32 AM EDT documented as of this encounter Care Teams Seaming Inspector Relationship Specialty Start Date End Date Virginie Monet MD [address] [place] [address] PCP - General Family Medicine 07/30/20 documented as of this encounter
--- OUTSIDE RECORDS SUMMARY | 2024-08-13 13:55 | XMS_ITS | Encounter Summary ---
Author Organization [employer] Address [address] [facility] 7t [place] [address] Care Team Providers Care Junior High School Teacher Name Role Phone Virginie Monet MD Primary Care Provide r Reason for Visit * Reason Onset Date Comments Referral 10/02/2022 Encounter Details Date Type Department Care Team ([facility] Contact Info) Description 10/02/2022 Telephone [facility] [address] [place], [place] [phone] Virginie Monet MD [address] [place] [address] Referral Social History Tobacco Use Types Packs/Day Years Used Date Smoking Tobacco: Every Day Cigarettes Smokeless Tobacco: Never Alcohol Use Standard Drinks/Week Comments Never 0 (1 standard drink = 0.6 oz pur e alcohol) Comments Unknown Sex and Gender Information Value [...] suspected to have Coronavirus/COVID-19? No / Unsure 09/29/2022 10:37 AM EDT documented as of this encounter Miscellaneous Notes * Telephone Encounter - Karissa Napoles - 10/03/2022 8:47 AM EDT TC jens Doran regarding message below. Explained to her that we don't generate scripts or referrals for OT evaluation for lift chairs. * Telephone Encounter - Elsa Ramos - 10/02/2022 2:04 PM EDT Tc from [facility]er care asst requesting a referral for occupational therapy evaluation for pt to be able to get a shower chair and electric lift chair . Please call to clarify at phone # [phone]. documented in this encounter Plan of Treatment Upcoming Encounters Date Type Department Care Team (Late st Contact Info) Description 09/09/2024 9:45 AM EST Office Visit [address] [address] 09/16/2024 10:45 AM EST Office Visit [address] [address] Virginie Monet MD [address] [place] [address] documented as of this encounter Visit Diagnoses Not on filedocumented in this encounter Care Teams Junior High School Teacher Relationship Specialty Start Date End Date Virginie Monet MD [address] [place] [address] PCP - General Family Medicine 07/30/20 documented as of this encounter
--- OUTSIDE RECORDS SUMMARY | 2024-08-13 13:55 | XMS_ITS | Encounter Summary ---
Author Organization [employer] Address [address] [facility] 7t [place] [address] Care Team Providers Care Kiln Operator Helper Name Role Phone Virginie Monet MD Primary Care Provide r Encounter Details Date Type Department Care Team ([facility] Contact Info) Description 08/01/2024 Orders Only [facility] External Provider, [facility] Social History Tobacco Use Types Packs/Day Years [...] Description 09/09/2024 9:45 AM EST Office Visit [address] [address] 09/16/2024 10:45 AM EST Office Visit [address] [address] Virginie Monet MD [address] [place] [address] documented as of this encounter Procedures Procedure Name Priority Date/Time Associated Diagnosis Comments MR KNEE WO CONTRAST LEFT Routine 08/02/2024 8:54 AM EST documented in this encounter Results * MR Knee w/o Contrast Left (08/02/2024 8:54 AM EST) Anatomical Region Laterality Modality Magnetic Resonan ce 08/02/2024 8:54 AM EST Narrative 08/02/2024 8:56 AM EST ? [facility] ?[address] ?[place] [address] ? Magnetic Resonance Report ? Signed ? Patient: Martins,Anastasia ?MR#: [id number] ?? 07 ? : 1965 ?Acct:[id number] ? Age/Sex: 58 / F ?ADM Date: 01/17/25 ? Loc: HO.MRI ? Attending Dr: Pete Varela MD ? Ordering Physician: Pete Varela MD ?? Date of Service: 08/01/24 ?? Procedure(s): MR knee LT wo con ?? Accession Number(s): [id number] ? cc: Virginie Monet MD; Pete Varela MD ? CLINICAL HISTORY: S83.242A - Other tear of medial meniscus, current injury, left knee, ini... ? MR left knee without gadolinium ? Comparison: None ? Findings: ?? No acute fracture or pathologic bone lesion. ?? Moderate-size simple appearing effusion. ? No tears of the cruciate or collateral ligaments. ?? Patellar retinacula and iliotibial band are intact. ?? Quadriceps, patellar, popliteus, and flexor tendons are intact. ? There is a tear of the posterior horn of the medial meniscus extending to ?? the inferior articular surface. ?? There are no other meniscal tears. ? IMPRESSION: ?? Posterior horn medial meniscal tear with joint effusion. ? This document has been electronically signed by: Landon Steele MD on ?? 08/02/2024 08:54:22 ? Dictated By: ?Landon Steele MD ? Signed By: ?<Electronically signed by Landon Steele MD in OV> ?08/02/24 0855 ? DD/ 3 ? TD/TT: 08/02/24853 ? Clam Digger: ? Procedure Note Gema, Image - 08/02/2024 [place] [id number] Magnetic Resonance Report Signed Patient: Virginie Martins AMR#: [id number] 07 : 1965Acct:[id number] Age/Sex: 58 / FADM Date: 08/01/24 Loc: HO.MRI Attending Dr: Pete Varela MD Ordering Physician: Pete Varela MD Date of Service: 08/01/24 Procedure(s): MR knee LT wo con Accession Number(s): [id number] cc: Virginie Monet MD; Pete Varela MD CLINICAL HISTORY: S83.242A - Other tear of medial meniscus, currentinjury, left knee, ini... MR left knee without gadolinium Comparison: None Findings: No acute fracture or pathologic bone lesion. Moderate-size simple appearing effusion. No tears of the cruciate or collateral ligaments. Patellar retinacula and iliotibial band are intact. Quadriceps, patellar, popliteus, and flexor tendons are intact. There is a tear of the posterior horn of the medial meniscus extending to the inferior articular surface. There are no other meniscal tears. IMPRESSION: Posterior horn medial meniscal tear with joint effusion. This document has been electronically signed by: Landon Steele MD on 08/02/2024 08:54:22 Dictated By: Landon Steele MD Signed By: <Electronically signed by Landon Steele MD in OV> 08/02/24 0855 DD/ TD/TT: 08/02/2454 Clam Digger: [facility] External Provider IMG MRI PROCEDURES Final Result documented in this encounter Visit Diagnoses Not on filedocumented in this encounter Additional Health Concerns Assessment Noted Time PHQ-9 Depression Total Score: 15 024 11:32 AM EDT documented as of this encounter Care Teams Kiln Operator Helper Relationship Specialty Start Date End Date Virginie Monet MD [address] [place] [phone] PCP - General Family Medicine 07/30/20 documented as of this encounter
--- OUTSIDE RECORDS SUMMARY | 2024-08-13 13:55 | XMS_ITS | Encounter Summary ---
Author Organization [employer] Address [address] 7[address] [place] [address] Care Team Providers Care Placement Coordinator Name Role Phone Virginie Monet MD Primary Care Provide r Reason for Visit * Reason Comments Med Refill Encounter Details Date Type Department Care Team ([facility] st Contact Info) Description 07/17/2024 Refill [facility] 230 [place], [place] [phone] Jerrica Green NP 230 [place], [place] [phone] Type 2 diabetes mellitus with hyperglycemia, without long-term current use of insulin ([facility]) Social History Tobacco Use Types Packs/Day Years [...] the past 12 months, has t he [employer], gas, oil or water company threatened to [...] Description 09/09/2024 9:45 AM EST Office Visit [address] [address] 09/16/2024 10:45 AM EST Office Visit [address] [address] Virginie Monet MD [address] [place] [address] documented as of this encounter Visit Diagnoses Diagnosis Type 2 diabetes mellitus with hyperglycemia, without long-term current use of insulin ([facility]) documented in this encounter Additional Health Concerns Assessment Noted Time PHQ-9 Depression Total Score: 15 024 11:32 AM EDT documented as of this encounter Care Teams Placement Coordinator Relationship Specialty Start Date End Date Virginie Monet MD [address] [place] [address] PCP - General Family Medicine 07/30/20 documented as of this encounter
--- OUTSIDE RECORDS SUMMARY | 2024-08-13 13:55 | XMS_ITS | Encounter Summary ---
Author Organization [employer] Address [address] [place] [address] Care Team Providers Care Treater Helper Name Role Phone Virginie Monet MD Primary Care Provide r Reason for Visit * Reason Onset Date Comments Nurse Triage 12/14/2023 Encounter Details Date Type Department Care Team ([facility] st Contact Info) Description 12/14/2023 Telephone [facility] 230 [place], [place] [phone] Virginie Monet MD 230 [place] [address] Nurse Triage Social History Tobacco Use Types [...] encounter Miscellaneous Notes * Telephone Encounter - Saqib Ramos - 12/14/2023 8:58 AM EDT TC from pt requesting medication refill. Medications needing refill : oxyCODONE (Roxicodone) 5 MG immediate release tablet To be sent to: [facility] documented in this encounter Plan of Treatment Upcoming Encounters Date Type Department Care Team (Late st Contact Info) Description 09/09/2024 9:45 AM EST Office Visit [facility] [address] [place] [address] 09/16/2024 10:45 AM EST Office Visit [facility] [address] [place] [address] Virginie Monet MD [address] [place] [address] documented as of this encounter Visit Diagnoses Diagnosis Chronic bilateral low back pain without sciatica documented in this encounter Additional Health Concerns Assessment Noted Time PHQ-9 Depression Total Score: 0 05/29/20 23 2:13 PM EST documented as of this encounter Care Teams Treater Helper Relationship Specialty Start Date End Date Virginie Monet MD [address] [place] [address] PCP - General Family Medicine 07/30/20 documented as of this encounter
--- OUTSIDE RECORDS SUMMARY | 2024-08-13 13:55 | XMS_ITS | Encounter Summary ---
Author Organization [employer] Address [address] [facility] 7t [place] [address] Care Team Providers Care Canceling And Cutting Control Clerk Name Role Phone Virginie Monet MD Primary Care Provide r Encounter Details Date Type Department Care Team ([facility] Contact Info) Description 08/23/2022 Orders Only [facility] MEDICINE [address] [place] [phone] Yolanda Rose DO [address] [place] [phone] Social History Tobacco Use Types Packs/Day Years Used Date Smoking Tobacco: Never Assessed Comments Unknown Sex and Gender Information Value Date Recorded Sex Assigned at Female 05/15/2022 10:18 AM EDT Legal Sex Female 10:18 AM EDT Gender Identity Female 05/15/2022 10:18 AM EDT Sexual Orientation Choose not to disclose 2021 10:18 AM EDT documented as of this encounter Plan of Treatment Upcoming Encounters Date Type Department Care Team (Late Contact Info) Description 09/09/2024 9:45 AM EST Office Visit [facility] MEDICINE [address] [place] [address] [phone] 09/16/2024 10:45 AM EST Office Visit [facility] MEDICINE [address] [place] [address] [phone] Virginie Monet MD [address] [place] [phone] documented as of this encounter Visit Diagnoses Not on filedocumented in this encounter Care Teams Canceling And Cutting Control Clerk Relationship Specialty Start Date End Date Virginie Monet MD [address] [place] [address] PCP - General Family Medicine 07/30/20 documented as of this encounter
--- OUTSIDE RECORDS SUMMARY | 2024-08-13 13:55 | XMS_ITS | Encounter Summary ---
Author Organization [employer] Address [address] [facility] [address] 7[address] [place] [address] Care Team Providers Care Indoor Plant Technician Name Role Phone Virginie Monet MD Primary Care Provide r Reason for Visit * Reason Comments Med Refill Encounter Details Date Type Department Care Team ([facility] st Contact Info) Description 01/22/2024 Refill [facility] MEDICINE [address] [place], [place] [phone] Virginie Monet MD [address] [place], [place] [phone] Anxiety Social History Tobacco Use Types Packs/Day [...] Description 09/09/2024 9:45 AM EST Office Visit [facility] MEDICINE [address] [place] [phone] 09/16/2024 10:45 AM EST Office Visit [address] [address] Virginie Monet MD [address] [place] [phone] documented as of this encounter Visit Diagnoses Diagnosis Anxiety Anxiety state, unspecified documented in this encounter Additional Health Concerns Assessment Noted Time PHQ-9 Depression Total Score: 15 024 11:32 AM EDT documented as of this encounter Care Teams Indoor Plant Technician Relationship Specialty Start Date End Date Virginie Monet MD [address] [place] [phone] PCP - General Family Medicine 07/30/20 documented as of this encounter
--- OUTSIDE RECORDS SUMMARY | 2024-08-13 13:55 | XMS_ITS | Encounter Summary ---
Author Organization [employer] Address [address] [facility] [address] 7[address] [place] [address] Care Team Providers Care Care Team Assistant Name Role Phone Virginie Monet MD Primary Care Provide r Reason for Visit * Reason Onset Date Comments Med Refill 07/30/2024 Encounter Details Date Type Department Care Team ([facility] st Contact Info) Description 07/30/2024 Refill [facility] MEDICINE [address] [place], [place] [phone] Virginie Monet MD [address] [place] [address] Chronic bilateral low back pain without sciatica Social History Tobacco Use Types Packs/Day Years [...] the past 12 months, has t he [employer] gas, oil or water company threatened to [...] encounter Miscellaneous Notes * Telephone Encounter - Stephen Ross - 07/30/2024 8:47 AM EST TC from pt requesting medication refill. Medications needing refill : oxyCODONE (Roxicodone) 5 MG immediate release tablet To be sent to: [id number] [place] - [address] [facility] [place] documented in this encounter Plan of Treatment Upcoming Encounters Date Type Department Care Team (Late st Contact Info) Description 09/09/2024 9:45 AM EST Office Visit [facility] MEDICINE [address] [place] [phone] 09/16/2024 10:45 AM EST Office Visit [facility] MEDICINE [address] [place] [phone] Virginie Monet MD [address] [place] [address] documented as of this encounter Visit Diagnoses Diagnosis Chronic bilateral low back pain without sciatica documented in this encounter Additional Health Concerns Assessment Noted Time PHQ-9 Depression Total Score: 15 024 11:32 AM EDT documented as of this encounter Care Teams Care Team Assistant Relationship Specialty Start Date End Date Virginie Monet MD [address] [place] [address] PCP - General Family Medicine 07/30/20 documented as of this encounter
--- OUTSIDE RECORDS SUMMARY | 2024-08-13 13:55 | XMS_ITS | Encounter Summary ---
Author Organization [employer] Address [address] [facility] [address] 7[address] [place] [address] Care Team Providers Care Rn Transport Name Role Phone Virginie Monet MD Primary Care Provide r Encounter Details Date Type Department Care Team ([facility] st Contact Info) Description 08/12/2024 9:45 AM EST Office Visit [facility] MEDICINE [address] [place] [address] Racheal Flynn FNP [address] [place] [address] Fibromyalgia (Primary Dx); Long-term current use of opiate analgesic Social History Tobacco Use Types Packs/Day Years [...] AM EDT documented as of this encounter Progress Notes * Racheal Flynn, DESTINY - 08/12/2024 9:45 AM EST Subjective: Virginie Martins is a 58 y.o. female w/ PMH hypothyroidism anxiety asthma, depression, HTN, fibromyalgia, chronic low back pain, DM2, GERD, IBS who presents to the office for - Chronic Pain Clinic Group visits. Initial Group visit: 09/11/23 Group Visit Number: 5 Last PCP visit: 04/08/2024, Dr Shah Group Confidentiality last signed: 09/11/23 Group Topic: Functional Pain Goals - Following with [facility] Ortho for left knee pain and instability. Recently completed MRI and has follow up pending with Ortho team to review results and discuss management/plan Chronic Pain History: Associated Diagnosis: Fibromyalgia Current pharm tx: oxycodone 5mg [id number]; Xanax 0.5mg TID PRN Medication: States taking medication as prescribed. Related Specialists: Ortho Functional Goals: improvement of left knee pain and mobility Other substance use: Tobacco: every day, 1/4 pack Marijuana: never Alcohol: never Illicit substances: denies Review of Systems Constitutional: Negative. Respiratory: Negative. Cardiovascular: Negative. Musculoskeletal: Positive for arthralgias and back pain. Skin: Negative. Physical Exam Constitutional: Appearance: Normal appearance. HENT: Head: Normocephalic and atraumatic. Skin: General: Skin is warm and dry. Capillary Refill: Capillary refill takes less than 2 seconds. Neurological: General: No focal deficit present. Mental Status: She is alert and oriented to person, place, and time. Psychiatric: Mood and Affect: Mood normal. Behavior: Behavior normal. Problem List Items Addressed This Visit Musculoskeletal Fibromyalgia - Primary Current Assessment & Plan - Pt attended and participated in group today - urine tox and pill count as expected - continue to explore and use non-pharmacological modalities for chronic pain treatment Other Long-term current use of opiate analgesic Overview Medication: oxycodone 5mg Q8H PRN Indication: fibromyalgia Last SENIOR DATA QUALITY ANALYST Agreement: 01/09/24 Relevant Orders POCT AIMEE-14 Urine Drug Screen (Completed) Follow up: 1-2 months for [facility]. Follow up as scheduled with PCP, sooner as needed * Krupa Gonzalez RN - 08/12/2024 9:45 AM EST .SENIOR DATA QUALITY ANALYST medical numerical control operator: PDMP reviewed today. Last fill date: 07/30/24 (Oxycodone 5mg tid PRN) count was (51), anticipated (44) to be remaining. ..UTOX completed. Positive for (OXY, THC), Negative for AMP, BAR, BUP, BZO, CLARI, FTY, MDMA, MET, MOP, MTD, PCP, TCA. UTOX as expected. documented in this encounter Miscellaneous Notes * Assessment & Plan Note - DESTINY Banegas - 08/12/2024 2:36 PM ESTAssociated Problem(s): Fibromyalgia - Pt attended and participated in group today - urine tox and pill count as expected - continue to explore and use non-pharmacological modalities for chronic pain treatment documented in this encounter Plan of Treatment Upcoming Encounters Date Type Department Care Team (Late st Contact Info) Description 09/09/2024 9:45 AM EST Office Visit [address] [address] 09/16/2024 10:45 AM EST Office Visit [facility] [address] [place] [address] Virginie Monet MD [address] [place] [address] documented as of this encounter Procedures Procedure Name Priority Date/Time Associated Diagnosis Comments POCT AIMEE-14 URINE DRUG SCREEN Routine 08/12/2024 1:45 PM EST Long-term current use of opiate analgesic documented in this encounter Results * POCT AIMEE-14 Urine Drug Screen (08/12/2024 1:45 PM EST) THC Positive Oxycodone Screen, Urine Positive Urine Urine specimen obtained by clean catch procedure / Unknown 08/12/2024 1:45 PM EST Narrative Krupa Gonzalez RN - 08/12/2024 1:45 PM EST ..UTOX cup Lot#[id number] Exp. 04/09/26 Internal Pass Control Racheal Flynn SUPERVISOR PIT [employer] AUXILIARIES POINT OF CARE TEST ENTER/EDIT ORDERABLES Final Result documented in this encounter Visit Diagnoses Diagnosis Fibromyalgia- Primary Unspecified myalgia and myositis Long-term current use of opiate analgesic Encounter for long-term (current) use of other medications documented in this encounter Additional Health Concerns Assessment Noted Time PHQ-9 Depression Total Score: 15 024 11:32 AM EDT documented as of this encounter Care Teams Rn Transport Relationship Specialty Start Date End Date Virginie Monet MD [address] [place] [phone] PCP - General Family Medicine 07/30/20 documented as of this encounter
--- OUTSIDE RECORDS SUMMARY | 2024-08-13 13:56 | XMS_ITS | Clinical Summary ---
Author Organization [facility] Address [address] [place] [address] Care Team Providers Care Otolaryngology Surgeon Name Role Phone Unavailable Primary Care Provider Unavailabl e Social History Tobacco Use Types Packs/Day Years Used Date Smoking Tobacco: Never Assessed Sex and Gender Information Value Date Recorded Sex Assigned at Not on file Gender Identity Not on file Sexual Orientation Not on file Plan of Treatment Health Maintenance Due Date Last Done Comments DTaP,Tdap,and Td Vaccines (1 - Tdap) 1984 Hepatitis B Vaccines (1 of 3 - 19+ 3-dose series) 1984 Cervical Cancer Screening: Pap Smear 1986 Zoster Vaccines (1 of 2) 10/07/2015 Breast Cancer Screening 01/09/2020 01/09/20 18, 06/14/2017, 12/13/2016, Additional history exists COVID-19 Vaccine ( - 2023- season) 2024 Influenza Vaccine (#1) 2024 04/09/2013 Pneumococcal Vaccine: Pediatrics (0 to 5 Years) and At-Risk Patients (6 to 64 Years) Aged Out 11/16/2016 No longer eligible based on patient's age to complete this topic HIB Vaccines Aged Out No longer eligi ble based on patient's age to complete this topic HPV Vaccines Aged Out No longer eligi ble based on patient's age to complete this topic Hepatitis A Vaccines Aged Out No long er eligible based on patient's age to complete this topic IPV Vaccines Aged Out No longer eligi ble based on patient's age to complete this topic MMR Vaccines Aged Out No longer eligi ble based on patient's age to complete this topic Meningococcal ACWY Vaccine Aged Out N o longer eligible based on patient's age to complete this topic RSV Immunization Patients Under 20 months Aged Out No longer eligible based on patient's age to complete this topic Varicella Vaccines Aged Out No longer eligible based on patient's age to complete this topic Procedures Procedure Name Priority Date/Time Associated Diagnosis Comments DX MAMMO INCL CAD BI Routine 01/08/2018 1:39 PM EDT Mammographic microcalcification found on diagnostic imaging of breast from Last 3 Months or Most Recently Relevant to Health Maintenance Results * DX MAMMO INCL CAD BI (01/08/2018 1:39 PM EDT) Anatomical Region Laterality Modality Mammography 06/14/2017 9:25 AM EST Narrative 03/03/2019 2:37 PM EDT This is a summary report. The complete report is available in the patient's medical record. If you cannot access the medical record, please contact the sending organization for a detailed fax or copy. According to schedulers notation, patient has not responded radiology department's efforts to schedule follow-up mammogram to reassess left breast calcifications. Bilateral diagnostic digital mammogram: History: Follow-up left breast calcifications Bilateral diagnostic digital mammogram interpreted with the benefit of CAD and compared with prior screening studies as remote as 06/11/2013. Magnification views left breast were compared with prior left breast magnification views as remote as 12/13/2016. Breast tissue pattern is diffusely dense bilaterally limiting the sensitivity of mammography. Bilateral breast calcifications are stable in appearance when compared with recent studies. Magnification views left breast in 1 year has been scheduled to achieve two-year stability for scattered calcifications in the upper-outer quadrant. Rounded mass with obscured margins is seen in the central aspect right breast corresponding to large simple cyst demonstrated on 2013 ultrasound. Impression: Probably benign finding. Magnification views left breast at time of patient's anticipated yearly mammogram has been scheduled. BI-RADS 3-probably benign finding Procedure Note Ashu Tiwari - 08/20/2023 This is a summary report. The complete report is available in thepatient's medical record. If you cannot access the medical record, pleasecontact the sending organization for a detailed fax or copy. According to schedulers notation, patient has not responded radiologydepartment's efforts to schedule follow-up mammogram to reassess left breast calcifications. Bilateral diagnostic digital mammogram: History: Follow-up left breast calcifications Bilateral diagnostic digital mammogram interpreted with the benefit of CADand compared with prior screening studies as remote as 06/11/2013.Magnification views left breast were compared with prior left breastmagnification views as remote as 12/13/2016. Breast tissue pattern is diffusely dense bilaterally limiting thesensitivity of mammography. Bilateral breast calcifications are stable inappearance when compared with recent studies. Magnification views leftbreast in 1 year has been scheduled to achieve two-year stability forscattered calcifications in the upper-outer quadrant. Rounded mass with obscured margins is seen in the central aspect rightbreast corresponding to large simple cyst demonstrated on 2013ultrasound. Impression: Probably benign finding. Magnification views left breast attime of patient's anticipated yearly mammogram has been scheduled. BI-RADS 3-probably benign finding Gurpreet Tsai MD IMG BI PROCEDURES from Last 3 Months or Most Recently Relevant to Health Maintenance
--- OUTSIDE RECORDS SUMMARY | 2024-08-13 13:56 | XMS_ITS | Encounter Summary ---
Author Organization [email or web address] Address [address] [place] [address] Care Team Providers Care Immigration Judge Name Role Phone Virginie Monet MD Primary Care Provide r Reason for Visit * Reason Onset Date Comments Appointment Request 06/25/2023 Encounter Details Date Type Department Care Team ([facility] Contact Info) Description 06/25/2023 Telephone [facility] MEDICINE [address] [place], [place] [phone] Virginie Monet MD [address] [place] [address] Appointment Request Social History Tobacco Use Types [...] * Telephone Encounter - Chicho Raman - 06/25/2023 9:57 AM EST Tc from patient requesting a call back to r/s appt on 06/25 fiction and nonfiction writer prose did cancel appt per patient request documented in this encounter Plan of Treatment Upcoming Encounters Date Type Department Care Team (Late st Contact Info) Description 09/09/2024 9:45 AM EST Office Visit [address] [address] 09/16/2024 10:45 AM EST Office Visit [facility] MEDICINE [address] [place] [phone] Virginie Monet MD [address] [place] [phone] documented as of this encounter Visit Diagnoses Not on filedocumented in this encounter Additional Health Concerns Assessment Noted Time PHQ-9 Depression Total Score: 0 05/29/20 23 2:13 PM EST documented as of this encounter Care Teams Immigration Judge Relationship Specialty Start Date End Date Virginie Monet MD [address] [place] [address] PCP - General Family Medicine 07/30/20 documented as of this encounter
--- OUTSIDE RECORDS SUMMARY | 2024-08-13 13:56 | XMS_ITS | Clinical Summary ---
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 Same with red grapes and red onion Banana 11/14/2022 Tetanus Immune Globulin Swelling 09/16/2020 Tetanus Toxoids High 05/12/2024 Other Reaction(s): SWELLING, REDNESS Wound Dressing Adhesive 09/16/2020 Other reaction(s): Blisters Medications * This document contains information received from the source organization and may not represent a complete record from that organization. albuterol 108 (90 Base) MCG/ACT inhaler Inhale 2 puffs every 4 (four) hours. 2020 Active B Complex Vitamins (RA B-Complex with B-12) tablet Take 1 tablet by mouth in the morning. 2020 Active diclofenac (Voltaren) 50 MG EC tablet Take 1 tablet by mouth in the morning and at bedtime. 2020 Active fluticasone (Flonase Allergy Relief) 50 MCG/ACT nasal spray Administer 1-2 sprays into affected nostril(s) in the morning. 2020 Active lactulose (Chronulac) 10 GM/15ML solution Take 15 mL by mouth in the morning and 15 mL at noon and 15 mL in the evening and 15 mL before bedtime. For constipation.. 2017 Active Lidocaine 4 % patch 1 patch by Other route if needed each day. Apply to L upper tibia daily prn daily 2019 Active loperamide (Imodium A-D) 2 MG tablet Take 2 tablets by mouth. Take 2 tablets by oral route after 1st loose stool and 1 tablet (2mg) after each next bowel movement; do not exceed 16 mg in 24 hours 2020 Active ondansetron (Zofran) 4 MG tablet Take 1 tablet by mouth in the morning and at bedtime. Take 2 tablet by oral route 2 times every day 2017 Active rOPINIRole (Requip) 4 MG tablet Take 1 tablet by mouth at bedtime. 2020 Active SUMAtriptan (Imitrex) 20 MG/ACT nasal spray Administer 1 spray into affected nostril(s) See administration instructions. [place] 1 spray by intranasal route once; if headache returns, dose may be repeated once and after 2 hours, do not exceed 40 mg per day. Active tiZANidine (Zanaflex) 6 MG capsule Take 1 capsule by mouth every 6 (six) hours. Take 1 capsule by oral route every 6-8 hours as needed not to exceed 3 doses in 24 hours. 2020 Active Umeclidinium-Cole anterol (Anoro Ellipta) 62.5-25 MCG/ACT aerosol powder Inhale 1 puff in the morning. Inhale 1 puff by inhalation route every day at the same time each day. Active Continuous Blood Gluc Sensor (FreeStyle Shane 2 Sensor) miscIndications: Type 2 diabetes mellitus without complication, without long-term current use of insulin ([facility]) Use 1 sensor every 14 days per package directions 2 each 2022 Active Continuous Blood Gluc Pipe Organ Mechanic Apprentice (FreeStyle Shane 2 [place]) deviceIndication s:Type 2 diabetes mellitus without complication, without long-term current use of insulin ([facility]) Use reader for CGM per package directions 1 each 2022 Active Aspirin Low Dose 81 MG EC tablet Take 81 mg by mouth in the morning. 2021 Active atorvastatin (Lipitor) 40 MG tablet Take 1 tablet by mouth at bedtime. 2022 Active Flovent HFA 220 MCG/ACT inhaler Inhale 1 puff 2 times daily. 2022 Active Narcan 4 MG/0.1ML nasal spray CALL 911. SPR CONTENTS OF ONE SPRAYER (0.1ML) INTO ONE NOSTRIL. REPEAT IN 2-3 MIN IF SYMPTOMS OF OPIOID EMERGENCY PERSIST, ALTERNATE NOSTRILS 2021 Active ondansetron ODT (Zofran-ODT) 4 MG disintegrating tablet DISSOLVE 1 TABLET ON THE TONGUE EVERY 6 HOURS 2022 Active SUMAtriptan (Tosymra) 10 MG/ACT nasal spray Inhale 10 mg. 2020 Active rOPINIRole (Requip) 3 MG tablet Take 3 mg by mouth in the morning. 2022 Active glycerin (Adult) 2 g suppository Insert 1 suppository (2 g) into the rectum if needed each day for constipation. 90 suppository 3 2022 Active mineral oil enema Insert 1 enema into the rectum if needed in the morning and at bedtime for constipation. 266 mL 2 2022 Active Continuous Blood Gluc Sensor (Dexcom G7 Sensor) miscIndications: Type 2 diabetes mellitus with hyperglycemia, without long-term current use of insulin (CMS/HCC) 1 each 3 times daily. 1 each 2022 Active nicotine (Nicotrol) 10 MG inhalerIndicatio ns:Smoker Inhale 1 puff in the morning. Inhale (1 UNITS) by inhalation route 6 times every day as needed for smoking cravings. 168 each 1 2022 Active Blood Glucose Monitoring Suppl (ONE TOUCH ULTRA 2) w/Device kitIndications:T ype 2 diabetes mellitus with hyperglycemia, without long-term current use of insulin (CMS/HCC) Use to monitor blood glucose twice daily 1 kit 2022 Active albuterol (2.5 MG/3ML) 0.083% nebulizer solution Take 3 mL (2.5 mg) by nebulization every 6 (six) hours if needed for wheezing or shortness of breath. 75 mL 1 2022 Active Blood Pressure Monitor kitIndications:E ssential hypertension Use as directed 3x/week 1 kit 2022 Active metFORMIN (Glucophage) 500 MG tabletIndication s:Prediabetes TAKE 1 TABLET BY MOUTH TWICE DAILY WITH THE MORNING AND EVENING MEAL 180 tablet 1 2022 Active primidone (Mysoline) 50 MG tablet Take 50 mg by mouth 2 times daily. 2023 Active meloxicam (Mobic) 15 MG tablet Take 15 mg by mouth in the morning. 2022 Active Trelegy Ellipta 200-62.5-25 MCG/ACT aerosol powder INHALE 1 PUFF BY MOUTH DAILY 2023 Active isosorbide mononitrate ER (Imdur) 30 MG 24 hr tablet Take 30 mg by mouth Once per day. 2023 Active Blood Pressure Monitoring (Blood Pressure Cuff) miscIndications: Essential hypertension 1 each Once daily. 1 each 2023 Active semaglutide (Ozempic) 2 MG/1.5ML solution pen-injectorIndi cations:Type 2 diabetes mellitus with hyperglycemia, without long-term current use of insulin ([facility]) Inject 0.5 mg under the skin 1 (one) time per week. 1 each 12 2023 Active ARIPiprazole (Abilify) 2 MG tabletIndication s:Depression, unspecified depression type TAKE 1 TABLET(2 MG) BY MOUTH IN THE MORNING 30 tablet 1 2023 Active Sodium Fluoride 5000 Plus 1.1 % cream BRUSH TEETH EVERY MORNING AND AT BEDTIME DIRECTED 2023 Active Lancets (ComvivaTouch Delica Plus [id number]) miscIndications: Type 2 diabetes mellitus with hyperglycemia, without long-term current use of insulin ([facility]) USE DIRECTED TWICE DAILY 100 each 11 2023 Active OneTouch Ultra Test test stripIndications :Type 2 diabetes mellitus with hyperglycemia, without long-term current use of insulin ([facility]) USE DIRECTED TWICE DAILY 100 strip 11 2023 Active amitriptyline (Elavil) 75 MG tabletIndication s:Fibromyalgia TAKE 1 TABLET(75 MG) BY MOUTH AT BEDTIME 90 tablet 2023 Active ibuprofen 800 MG tabletIndication s:Pain in both hands TAKE 1 TABLET(800 MG) BY MOUTH EVERY 8 HOURS WITH FOOD NEEDED FOR MODERATE PAIN OR MILD PAIN 30 tablet 1 2023 Active polyethylene glycol, PEG, 3350 (Glycolax) 17 GM/SCOOP powder MIX 17 GRAMS(1 CAPFUL) INTO 8 TO 12 OUNCES OF FLUID LIKE WATER AND DRINK BY MOUTH EVERY NIGHT AT BEDTIME NEEDED CONSTIPATION 510 g 1 2023 Active ALPRAZolam (Xanax) 0.5 MG tabletIndication s:Anxiety TAKE 1 TABLET BY MOUTH NEEDED EVERY MORNING, EVERY AFTERNOON, AND EVERY NIGHT AT BEDTIME FOR UP TO 15 DAYS 45 tablet 2023 Active nicotine (Nicoderm CQ) 21 MG/24HR patch Place 1 patch on the skin 1 (one) time each day at the same time. 30 patch 2023 Active insulin lispro (HumaLOG Jacob KwikPen) 100 UNIT/ML injectionIndicat ions:Type 2 diabetes mellitus with hyperglycemia, without long-term current use of insulin ([facility]) Check blood sugar before 1 meal ( breakfast or lunch) if sugar >250-299 administer 3 units, if 300-349, administer 6 units, if >350 administer 9 units and call office. 1 each 2023 Active pen needle 31G x 5 mm miscIndications: Type 2 diabetes mellitus with hyperglycemia, without long-term current use of insulin ([facility]) Use as instructed 100 each 12 05/16 Active omeprazole (PriLOSEC) [address] capsule TAKE 1 CAPSULE BY MOUTH IN THE MORNING AND AT BEDTIME 180 capsule 1 2023 Active insulin lispro (HumaLOG KWIKPEN) 100 UNIT/ML injectionIndicat ions:Type 2 diabetes mellitus with hyperglycemia, without long-term current use of insulin ([facility]) ADMINISTER ONCE A DAY WITH 1 MEAL, 3U FOR BLOOD SUGAR BETWEEN 250-299, 6U FOR BLOOD SUGAR 300-349,FOR BLOOD SUGAR>400 INJECT 9U AND CALL CLINIC 3 mL 1 2024 Active DULoxetine (Cymbalta) [address] capsuleIndicatio ns:Depression, unspecified depression type TAKE 1 CAPSULE(60 MG) BY MOUTH IN THE MORNING 90 capsule 2024 Active oxyCODONE (Roxicodone) 5 MG immediate release tabletIndication s:Chronic bilateral low back pain without sciatica Take 1 tablet (5 mg) by mouth every 8 (eight) hours if needed for severe pain for up to 28 days. 84 tablet 08/27 Active losartan-hydroCH LOROthiazide (Hyzaar) 50-12.5 MG tabletIndication s:Essential hypertension TAKE 1 TABLET BY MOUTH DAILY 30 tablet 2 2024 Active levothyroxine (Synthroid, Levoxyl) 125 MCG tabletIndication s:Michael's thyroiditis TAKE 1 TABLET(125 MCG) BY MOUTH DAILY BEFORE BREAKFAST 30 tablet 3 2024 Active amoxicillin-clav ulanate (Augmentin) 875-125 MG tablet Take 1 tablet by mouth 2 times daily. 14 tablet 08/12 Discontinued( Therapy completed) HYDROmorphone (Dilaudid) 2 MG tablet Take 2 mg by mouth every 6 (six) hours if needed. 08/12 Discontinued( Therapy completed) levothyroxine (Synthroid, Levoxyl) 125 MCG tabletIndication s:Michael's thyroiditis TAKE 1 TABLET(125 MCG) BY MOUTH DAILY BEFORE BREAKFAST 30 tablet 3 08/06 Discontinued losartan-hydroCH LOROthiazide (Hyzaar) 50-12.5 MG tabletIndication s:Essential hypertension Take 1 tablet by mouth Once per day. 30 tablet 2 08/01 Discontinued DULoxetine (Cymbalta) [address] capsuleIndicatio ns:Depression, unspecified depression type TAKE 1 CAPSULE(60 MG) BY MOUTH IN THE MORNING 90 capsule 07/23 Discontinued insulin lispro (HumaLOG) 100 UNIT/ML injectionIndicat ions:Type 2 diabetes mellitus with hyperglycemia, without long-term current use of insulin ([facility]) For blood sugar between 250-299, administer 3 units, for blood sugar between 300-349 administer 6 units, for blood sugar >400 administer 9 units and call clinic 1 each 1 07/17 Discontinued oxyCODONE (Roxicodone) 5 MG immediate release tabletIndication s:Chronic bilateral low back pain without sciatica Take 1 tablet (5 mg) by mouth every 8 (eight) hours if needed for severe pain for up to 28 days. Do not start before July 02, 2024. 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: 01/09/24 BOY (obstructive sleep apnea) 05/27/2024 Overview (05/27/2024): very mild Pulmonary hypertension 05/27/2024 Right shoulder pain 05/27/2024 Spondylosis of lumbar region without myelopathy or radiculopathy 05/27/2024 Status post trigger finger release 05/27/2024 Overview (05/27/2024): 10/14/2021 Tremor of both hands 05/27/2024 Type 2 diabetes mellitus 05/27/2024 Vitamin D deficiency 05/27/2024 Acute pain of left knee 05/16/2024 Bursitis of left knee 05/16/2024 Assessment & Plan (05/16/2024 2:38 PM EDT): Advised to put ice on affected area, immobilization with knee brace given today at the clinic, she will keep it on for the next 2-3 weeks (can take it off at rest and at night). Use cane for ambulation. Refer to PT and continue Tylenol prn. Diet is high in sugar 05/16/2024 Dizzy 05/16/2024 Anxiety 01/14/2024 Assessment & Plan (04/08/2024 10:43 AM EDT): Dr Radha Schulz (psychiatrist) phone [phone], is now taking over of her mental health and will take over her medications for mental health Diverticular disease 09/11/2023 Epigastric hernia 09/11/2023 Incisional hernia 09/11/2023 Osteoarthritis 09/11/2023 Assessment & Plan (10/11/2023 11:50 AM EDT): C/w PRN meds Patient will go to medical records for guidance for new MAINTENANCE DEPARTMENT TECHNICIAN services Pain in both hands 08/27/2023 Assessment & Plan (10/11/2023 11:51 AM EDT): As above Class 2 severe obesity due t o excess calories with serious comorbidity in adult 05/29/2023 Assessment & Plan (05/16/2024 10:23 AM EDT): Discussed re weight reduction options including exercise, life style modifications, diet and referral to epic cadence specialists. Recommended to decrease soda and sugary beverage consumption, increase protein intake with meals (at least 1 portion of protein with each meal) to assist with satiety, increase dietary fiber Recommended at least 150 min/week of moderate intensity exercise. Colon cancer screening 05/29/2023 Tobacco dependence 04/11/2023 Venous insufficiency 02/14/2023 Assessment & Plan (02/14/2023 2:18 PM EDT): I will order a doppler US to r/o venous insufficiency Constipation 01/05/2023 Assessment & Plan (01/05/2023 8:16 AM EDT): No evidence of acute abdomen for obastuction. -trial of mineral oil enema, glycerin sppositaories, miralax and manual extraction and breathingl manuvers -seek medical care if no bowel movement 24 hours after the above tried, fever, pain or other concerns Acquired hypothyroidism 11/14/2022 Assessment & Plan (11/14/2022 10:12 AM EDT): TSH will be check and medication will be adjust accordingly Chronic bilateral low back pain without sciatica 11/14/2022 Assessment & Plan (04/22/2024 1:32 PM EDT): Virginie participated in chronic pain group to the fullest extent of her desires and abilities Urine tox and pill count not performed, as was as expected one month ago Continue to use multiple modalities of pain management Assessment & Plan (03/11/2024 9:34 PM EDT): Patient participated in chronic pain group to her fullest extent Urine tox and pill count as expected Continue to use multiple modalities of pain management Assessment & Plan (12/31/2023 2:45 PM EDT): Patient will now take oxycodone 10mg in the morning and then 5mg at night Continue to follow with pain management Assessment & Plan (10/11/2023 11:52 AM EDT): MAINTENANCE DEPARTMENT TECHNICIAN services will be requested Assessment & Plan (11/14/2022 10:15 AM EDT): Please refer to HPI, I will re-start patient on oxycodone 5mg Q 8hrs I extensibly explain to her she will be under strict contract for this and I will not either increase dose or continue prescribing this medication under any circumstance if contract is broken Vaginal itching 11/14/2022 Assessment & Plan (11/14/2022 10:20 AM EDT): likley yeast infection, patient on jardiance and with uncontrolled DM, I will prescribe trail of clotrimazole vaginal cream Polycythemia 09/29/2022 Assessment & Plan (11/14/2022 10:12 AM EDT): CBC will be check for monitoring Assessment & Plan (09/29/2022 12:47 PM EDT): Most likely related to smoking Pt is quitting smoking Check CBC in 6 weeks Type 2 diabetes mellitus wit h hyperglycemia, without long-term current use of insulin 09/25/2022 Assessment & Plan (05/16/2024 5:12 PM EDT): Elevated blood sugars in setting of missing dose of ozempic Pt resumed ozemic 0.5 mg dose per week today May utilizing sliding scale one meal per day Educated regarding risk of hypoglycemia Pt comfortable with administration of insulin at home Aware sugars should normalize throughout the week Aware of uc hours Assessment & Plan (05/16/2024 10:22 AM EDT): Reason of Hyperglycemia due to Pt missing Ozempic for 2 weeks. Advised to restart Ozempic and continue all other medications and follow up with PCP as scheduled. Assessment & Plan (04/08/2024 10:41 AM EDT): Diabetes is: not controlled but improved - Lab Results Component Value Date HGBA1C 7.4 (A) 04/08/2024 HGBA1C 8.2 (A) 12/31/2023 HGBA1C 6.9 (A) 08/27/2023 - Lab Results Component Value Date MICROALBUR 34.0 12/28/2023 CREATININE 0.83 12/20/2022 -Changes: none - Diabetic eye exam:referral today - Diabetic foot exam:up to date - Continue lifestyle modifications - Continue current medications - Follow up: 3 months Assessment & Plan (12/31/2023 2:44 PM EDT): Diabetes is: not controlled - Lab Results Component Value Date HGBA1C 8.2 (A) 12/31/2023 HGBA1C 6.9 (A) 08/27/2023 HGBA1C 7.9 (A) 05/29/2023 - Lab Results Component Value Date MICROALBUR 34.0 12/28/2023 CREATININE 0.83 12/20/2022 -Changes: I disocntinue her trulicity and I will start patient on ozempic, it is my medical opinion this will help lower her A1c - Diabetic eye exam:up to date - Diabetic foot exam:up to date - Continue lifestyle modifications - Follow up: 3 months Assessment & Plan (10/11/2023 11:51 AM EDT): I will put again trulicity 1.5mg weekly I ask patient to log glucose for next appointment, continue also with rest of her medications Assessment & Plan (08/27/2023 10:20 AM EST): Improving - Lab Results Component Value Date HGBA1C 6.9 (A) 08/27/2023 HGBA1C 7.9 (A) 05/29/2023 HGBA1C 8.6 (A) 02/14/2023 - Lab Results Component Value Date CREATININE 0.83 12/20/2022 - Diabetic eye exam:has an appointment 10/31/23 - Diabetic foot exam:referral to podiatry today - Continue lifestyle modifications - Continue current medications Assessment & Plan (05/29/2023 3:04 PM EST): Improving - Lab Results Component Value Date HGBA1C 7.9 (A) 05/29/2023 HGBA1C 8.6 (A) 02/14/2023 HGBA1C 8.0 (A) 11/14/2022 - Lab Results Component Value Date CREATININE 0.83 12/20/2022 - - Diabetic eye exam:upcoming appointment - Diabetic foot exam:pending - Continue lifestyle modifications - Continue current medications, I bette up on dose of trulicity Assessment & Plan (02/14/2023 2:20 PM EDT): - Lab Results Component Value Date HGBA1C 8.6 (A) 02/14/2023 HGBA1C 8.0 (A) 11/14/2022 HGBA1C 7.6 (A) 09/29/2022 - Lab Results Component Value Date CREATININE 0.83 12/20/2022 - Diabetic eye exam:up to date - Continue lifestyle modifications -c/w glipizide and metformin , I discontinue jardiance and I started her on trulicity 0.75mg weekly Assessment & Plan (11/14/2022 10:11 AM EDT): A1c is going up to 8 Lab Results Component Value Date HGBA1C 7.6 (A) 09/29/2022 - Lab Results Component Value Date CREATININE 0.97 06/20/2022 - Diabetic eye exam: pending - Diabetic foot exam: pending - Continue lifestyle modifications Continue with metformin and jardiance I added today glipizide 2.5mg daily - Assessment & Plan (09/29/2022 12:47 PM EDT): Significantly improved. No change in medications FU with PCP Blurring of visual image 06/17/2022 Essential hypertension 06/17/2022 Assessment & Plan (05/16/2024 5:13 PM EDT): Above goal today, Return to clinic for bp check with team nursing Monitor at home Assessment & Plan (04/08/2024 10:43 AM EDT): Not control I discontinue hydrochlorothiazide and start her on Hyzaar 12.5/50mg, c/w isosorbide 30mg daily I advise low Na diet and weight reduction Log blood pressure Assessment & Plan (12/31/2023 2:42 PM EDT): - Aerobic exercise to reduce BP. Initial goal of 30 min walk 3-5x/week. Increase as tolerated. - low-sodium diet (goal: <2g/day) and heart healthy diet such as DASH to reduce BP and prevent ASCVD. - Home BP monitoring 1-2 x day with goal of <140/90. - Seek immediate medical attention for chest pain, palpitations, SOB, syncope, or sudden changes in mental status. - Do not change or discontinue current prescriptions without first consulting health care provider Assessment & Plan (08/27/2023 10:19 AM EST): - Aerobic exercise to reduce BP. Initial goal of 30 min walk 3-5x/week. Increase as tolerated. - low-sodium diet (goal: <2g/day) and heart healthy diet such as DASH to reduce BP and prevent ASCVD. - Home BP monitoring 1-2 x day with goal of <140/90. - Seek immediate medical attention for chest pain, palpitations, SOB, syncope, or sudden changes in mental status. - Do not change or discontinue current prescriptions without first consulting health care provider Assessment & Plan (02/14/2023 2:18 PM EDT): - Aerobic exercise to reduce BP. Initial goal of 30 min walk 3-5x/week. Increase as tolerated. - low-sodium diet (goal: <2g/day) and heart healthy diet such as DASH to reduce BP and prevent ASCVD. - Home BP monitoring 1-2 x day with goal of <140/90. - Seek immediate medical attention for chest pain, palpitations, SOB, syncope, or sudden changes in mental status. - Do not change or discontinue current prescriptions without first consulting health care provider Assessment & Plan (11/14/2022 10:09 AM EDT): Maintenance: BMP: up to date Lipid Panel: up to date - Aerobic exercise to reduce BP. Initial goal of 30 min walk 3-5x/week. Increase as tolerated. - low-sodium diet (goal: <2g/day) and heart healthy diet such as DASH to reduce BP and prevent ASCVD. - Home BP monitoring 1-2 x day with goal of <140/90. - Seek immediate medical attention for chest pain, palpitations, SOB, syncope, or sudden changes in mental status. - Do not change or discontinue current prescriptions without first consulting health care provider -Today BP is in the high side it is likely due to acute on chronic pain, If BP is still high after pain is control and is taking medications as prescribed call back Foot pain 06/17/2022 Gastroesophageal reflux disease 06/17/2022 Assessment & Plan (12/31/2023 2:42 PM EDT): I advise patient to avoid NSAIDs, spicy and acid food, I advise to eat at the same time every day, I advise to elevate the head of the bed and take medications as prescribe Hiatal hernia 06/17/2022 Irritable bowel syndrome 06/17/2022 Migraine without aura, not refractory 06/17/2022 Palpitations 06/17/2022 Peripheral venous insufficiency 06/17/2022 Positive REUBEN (antinuclear antibody) 06/17/2022 Restless legs 06/17/2022 Sebaceous cyst 06/17/2022 Skin tag 06/17/2022 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 Assessment & Plan (09/29/2022 12:48 PM EDT): Pt taking suboptimal dose of levothyroxine. prescription for levothyroxine .125 sent to pharmacy. Pt to recheck TSH in 6 weeks. Asthma-chronic obstructive p ulmonary disease overlap syndrome 06/16/2020 Assessment & Plan (08/27/2023 10:18 AM EST): Better control after specialist escalated her treatment she is no on trellegy doing better Hepatitis A 07/02/2019 Fibromyalgia 05/02/2019 Assessment & Plan (08/12/2024 2:36 PM EST): - Pt attended and participated in group today - urine tox and pill count as expected - continue to explore and use non-pharmacological modalities for chronic pain treatment Assessment & Plan (05/27/2024 2:31 PM EST): Pt attended and participated in group today - urine tox and pill count as expected - followup in one month for theme reflections - continue to explore and use non-pharmacological modalities for chronic pain treatment Assessment & Plan (10/11/2023 11:50 AM EDT): Patient was educated about multidisciplinary approach for her condition, it was advise cardiovascular exercise, maintain hydration, treat anxiety/depression and take medications as directed Assessment & Plan (09/12/2023 10:37 AM EST): Urine tox and pill count as expected 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 Restart amitriptyline qhs and levothyroxine .125 Check TSH in 3 weeks Follow up closely with provider, will refer to N. Multiple nodules of lung 11/22/2018 Kidney stone 09/10/2018 Menopausal syndrome 05/09/2018 Dyslipidemia 01/04/2018 Depression, recurrent 12/26/2017 Assessment & Plan (03/11/2024 9:33 PM EDT): Virginie spoke with today about getting a referral for OP therapy Assessment & Plan (09/29/2022 12:49 PM EDT): Pt has been taking lower dose of aripiprazole due to lack of provider Migraine without status migrainosus, not intract able 12/26/2017 Mild intermittent asthma 12/26/2017 Obesity 12/26/2017 Peptic ulcer 12/26/2017 Resolved Problems Problem Noted Date Diagnosed Date Resolved Date Prediabetes 01/04/2018 04/22/2024 Encounters Date Type Department Care Team Description 08/12/2024 9:45 AM EST Office Visit [facility] [address] [place] [phone] Racheal Flynn FNP Fibromyalgia (Primary Dx); Long-term current use of opiate analgesic 08/12/2024 Travel 08/05/2024 Refill [facility] [address] [place] [address] Virginie Monet MD 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 Orders Only [facility] External Provider, [facility] 08/01/2024 Refill [facility] [address] [place] [phone] Virginie Monet MD Essential hypertension 07/30/2024 Refill [facility] [address] [place] [address] Virginie Monet MD Chronic bilateral low back pain without sciatica 07/28/2024 Telephone [facility] [address] [place] [address] Virginie Monet MD Appointment Request 07/23/2024 Refill [facility] [address] [place] [address] Virginie Monet MD Depression, unspecified depression type 07/17/2024 Refill [facility] [address] [place] [address] Jerrica Green NP Type 2 diabetes mellitus with hyperglycemia, without long-term current use of insulin ([facility]) 07/01/2024 Refill [facility] [address] [place] [address] Virginie Monet MD Chronic bilateral low back pain without sciatica 06/30/2024 Telephone [facility] [address] [place] [phone] Virginie Monet MD Durable Medical Equipment 06/24/2024 Telephone [facility] [address] [place] [phone] Virginie Monet MD 06/20/2024 Refill [facility] [address] [place] [address] Bridgette Mahmood MD 06/04/2024 Refill [facility] [address] [place] [address] Krupa Gonzalez RN Chronic bilateral low back pain without sciatica 06/04/2024 Telephone [facility] [address] [place] [phone] Virginie Monet MD Nurse Triage 06/04/2024 Telephone [facility] [address] [place] [address] Virginie Monet MD Med Refill 06/02/2024 Telephone [facility] [address] [place] [phone] Virginie Monet MD Durable Medical Equipment 05/28/2024 Telephone [facility] [address] [place] [phone] Benita Mahmood, KELSEY BPI Scoring 05/27/2024 9:45 AM EST Office Visit [facility] [address] [place] [phone] Dahiana Foreman MD Osteoarthritis, unspecified osteoarthritis type, unspecified site (Primary Dx); Opioid contract exists; Fibromyalgia 05/27/2024 Travel 05/21/2024 Telephone [facility] [address] [place] [phone] Virginie Monet MD Durable Medical Equipment 05/20/2024 Telephone [facility] [address] [place] [phone] Delmis Mcnamara, KELSEY 05/19/2024 Telephone [facility] [address] [place] [phone] Virginie Monet MD Nurse Triage 05/19/[address] [address] Virginie Monet MD Medication Question 05/19/2024 Orders Only [facility] [address] [place] [phone] Virginie Monet MD 05/19/[address] [address] Virginie Monet MD Nurse Triage 05/19/[address] [phone] Virginie Monet MD Medication Question 05/16/2024 3:20 PM EDT Office Visit [facility] [address] [address] Jerrica Green NP Type 2 diabetes mellitus with hyperglycemia, without long-term current use of insulin ([facility]) (Primary Dx); Diet is high in sugar; High blood sugar; Dizzy; Type 2 diabetes mellitus without complication, without long-term current use of insulin ([facility]); Essential hypertension 05/16/2024 9:00 AM EDT Office Visit [address] [phone] Reuben Agarwal MD Bursitis of other bursa of left knee (Primary Dx); Class 2 severe obesity due to excess calories with serious comorbidity and body mass index (BMI) of 36.0 to 36.9 in adult (CMS/HCC); Acute pain of left knee; Type 2 diabetes mellitus with hyperglycemia, without long-term current use of insulin (CMS/HCC); Dietary counseling; Exercise counseling 05/16/[address] [address] Benita Zayas, RN Appointment Request 05/16/[address] [address] Virginie Monet MD ER Follow-up 05/16/2024 Travel 05/16/2024 Orders Only GENERIC EXTERNAL DATA DEPARTMENT Provider, Generic External Data 05/15/2024 Orders Only GENERIC EXTERNAL DATA DEPARTMENT Provider, Generic External Data 05/13/2024 Telephone [facility] [address] [place] [address] [phone] Virginie Monet MD ER Follow-up from Last 3 Months Immunizations Name Administration Dates Next Due Influenza, IIV3, injectable 04/09/2013 Influenza, Split (incl. amandeep fied surface antigen) 12/21/2014,03/06/2014 Influenza, injectable, quadr ivalent, preservative free, pediatric 04/09/2013 Pfizer Covid-19 Vaccine 12+ 08/09/2021,,01/05/2021 Pfizer Covid-19 Vaccine 12+ akin-sucrose (Cabrera Cap) 08/09/2021 Pneumococcal Conjugate PCV 20 02/02/2023 Pneumococcal Polysaccharide PPSV23 11/16/2016 Social History Tobacco Use Types Packs/Day Years Used Date Smoking Tobacco: Every Day Cigarettes Passive Smoke Exposure: Current Smokeless Tobacco: Never Tobacco Cessation:Ready to Q uit: Not Asked; Counseling Given: Not Answered Comments:5 cigarettes daily Alcohol Use Standard Drinks/Week [...] not to disclose 2021 10:18 AM EDT Last Filed Vital Signs Vital Sign Reading Time Taken Comments Blood Pressure 159/80 05/16/2024 3:25 PM EDT Pulse 99 05/16/2024 3:25 PM EDT Temperature 36.8 ??C (98.2 ??F) 05/16/2024 8:49 AM ED T Respiratory Rate 18 05/16/2024 3:25 PM EDT Oxygen Saturation 100% 05/16/2024 3:25 PM EDT Inhaled Oxygen Concentration - - Weight 109 kg (239 lb 8 oz) 05/16/2024 8:49 AM E DT Height 172.7 cm (5' 8 ) 05/16/2024 3:25 PM EDT Body Mass Index 36.42 05/16/2024 8:49 AM EDT Plan of Treatment Upcoming Encounters Date Type Department Care Team (Late st Contact Info) Description 09/09/2024 9:45 AM EST Office Visit [facility] [address] [place] [phone] 09/16/2024 10:45 AM EST Office Visit [facility] [address] [place] [phone] Virginie Monet MD [address] [place] [phone] Health Maintenance Due Date Last Done Comments CT Colonography 1965 Colonoscopy 1965 Colorectal Cancer Screening 1965 FIT DNA/Cologuard 1965 FIT 1965 FOBT 1965 Sigmoidoscopy 1965 Diabetes: Foot Exam 10/07/1975 Eye Exam 10/07/1975 Alcohol/Substance Use Screening 1977 DTaP/Tdap/Td Vaccines (1 - Tdap) 1984 Hepatitis A Vaccines (1 of 2 - Risk 2-dose series) 1984 Hepatitis B Vaccines (1 of 3 - 19+ 3-dose series) 1984 Zoster Vaccines (1 of 2) 10/07/2015 Pap Smear 02/27/2021 02/27/2018 Cervical Cancer Screening 02/27/2023 HPV/Cotest 02/27/2023 02/27/2018 COVID-19 Vaccine ( season) 2024 06/19/2022, 08/09/2021, 08/09/2021, Additional history exists Influenza Vaccine (#1) 2024 5, 03/06/2014, 04/09/2013, Additional history exists Diabetes: Hemoglobin A1C 07/08/2024 024, 12/31/2023, 08/27/2023, Additional history exists Depression Monitoring (PHQ-9) 07/16/2024 01/14/2024, 01/14/2024 SDOH Screening 08/21/2024 08/21/2023 Mammogram 12/31/2024 01/01/2024, 12/14, 01/01/2023, Additional history exists Depression Screening 01/13/2025 01/14/2024, 01/14/20 Diabetes: Urine Protein Screening 04/22/2025 04/22/2024, 12/28/2023, 08/27/2023, Additional history exists Lipid Panel 04/22/2025 04/22/2024, 02/02/2023 Tobacco Screening 05/27/2025 05/27/2024 RSV Patients and Patients Aged 60 years or older (1 - 1-dose 75+ series) 2040 Pneumococcal Vaccine: Pediatrics (0 to 5 Years) and At-Risk Patients (6 to 49) Years) Completed 02/02/2023, 11/16/2016 HIV Screening Completed 04/22/2024 Hepatitis C Screening Completed 04/22/2024 HIB Vaccines Aged Out No longer eligi ble based on patient's age to complete this topic HPV Vaccines Aged Out No longer eligi ble based on patient's age to complete this topic IPV Vaccines Aged Out No longer eligi ble based on patient's age to complete this topic Meningococcal Vaccine Aged Out No mae rodney eligible based on patient's age to complete this topic RSV under 20 months Aged Out No longe r eligible based on patient's age to complete this topic Rotavirus Vaccines Aged Out No longer eligible based on patient's age to complete this topic Procedures Procedure Name Priority Date/Time Associated Diagnosis Comments POCT AIMEE-14 URINE DRUG SCREEN Routine 08/12/2024 1:45 PM EST Long-term current use of opiate analgesic MR KNEE WO CONTRAST LEFT Routine 08/02/2024 8:54 AM EST POCT AIMEE-14 URINE DRUG SCREEN Routine 05/28/2024 7:39 AM EST Osteoarthritis, unspecified osteoarthritis type, unspecified site POCT GLUCOSE Routine 05/16/2024 3:32 PM EDT High blood sugar POCT HEMOGLOBIN Routine 05/16/2024 3:31 PM EDT Dizzy GLUCOSE, WHOLE BLOOD Routine 05/16/2024 3:15 AM EDT URINALYSIS, COMPLETE, WITH REFLEX TO CULTURE Routine 05/16/2024 12:47 AM EDT LIPASE Routine 05/15/2024 7:41 PM EDT COMPREHENSIVE METABOLIC PANEL Routine 05/15/2024 7:41 PM EDT BETA-HYDROXYBUTYRATE Routine 05/15/2024 7:41 PM EDT CBC WITH AUTO DIFFERENTIAL Routine 05/15/2024 7:41 PM EDT HEPATITIS C VIRAL RNA, QUANTITATIVE, REAL-TIME PCR Routine 04/22/2024 9:30 AM EDT Type 2 diabetes mellitus with hyperglycemia, without long-term current use of insulin (CMS/HCC) HIV 1/2 ANTIGEN/ANTIBODY, FOURTH GENERATION W/RFL Routine 04/22/2024 9:30 AM EDT Type 2 diabetes mellitus with hyperglycemia, without long-term current use of insulin (CMS/HCC) ALBUMIN, RANDOM URINE W/CREATININE Routine 04/22/2024 9:30 AM EDT Type 2 diabetes mellitus with hyperglycemia, without long-term current use of insulin (CMS/HCC) LIPID PANEL WITH REFLEX TO DIRECT LDL Routine 04/22/2024 9:30 AM EDT Type 2 diabetes mellitus with hyperglycemia, without long-term current use of insulin (CMS/HCC) POCT GLYCATED HEMOGLOBIN, TOTAL Routine 04/08/2024 9:31 AM EDT Type 2 diabetes mellitus with hyperglycemia, without long-term current use of insulin (CMS/HCC) BI MAMMOGRAM SCREENING TOMOSYNTHESIS BILATERAL Routine 01/01/2024 8:00 AM EDT ZZZ HISTORICAL HPV MRNA E6/E7 Routine 02/27/2018 3:34 PM EDT PAP SMEAR Routine 02/27/2018 12:00 AM EDT from Last 3 Months or Most Recently Relevant to Health Maintenance Results * POCT AIMEE-14 Urine Drug Screen (08/12/2024 1:45 PM EST) Only the most recent of2 resultswithin the time period is included. THC Positive Oxycodone Screen, Urine Positive Urine Urine specimen obtained by clean catch procedure / Unknown 08/12/2024 1:45 PM EST Narrative Krupa Gonzalez RN - 08/12/2024 1:45 PM EST ..UTOX cup Lot#[id number] Exp. 04/09/26 Internal Pass Control us Racheal Flynn PATTERN CHANGER AND REPAIRER POINT OF CARE TEST ENTER/EDIT ORDERABLES Final Result * MR Knee w/o Contrast Left (08/02/2024 8:54 AM EST) Anatomical Region Laterality Modality Magnetic Resonan ce 08/02/2024 8:54 AM EST Narrative 08/02/2024 8:56 AM EST ? [facility] ?[address] ?[place] [address] ? Magnetic Resonance Report ? Signed ? Patient: Martins,Anastasia ?MR#: [id number] ?? 07 ? : 1965 ?Acct:[id number] ? Age/Sex: 58 / F ?ADM Date: 08/01/24 ? Loc: HO.MRI ? Attending Dr: Pete Varela MD ? Ordering Physician: Pete Varela MD ?? Date of Service: 08/01/24 ?? Procedure(s): MR knee LT wo con ?? Accession Number(s): [id number] ? cc: Virginie Monet MD; Pete Varela MD ? CLINICAL HISTORY: S89.993A - Other tear of medial meniscus, current [...] MD in OV> ?08/02/24 0855 ? DD/ 0854 ? TD/TT: 08/02/24 0854 ? Vp Of Global Marketing: ? Procedure Note Mauricio Ribeiro - 08/02/[address] [address] Magnetic Resonance Report Signed Patient: Virginie Martins AMR#: [id number] 07 : 1965Acct:[id number] Age/Sex: 58 / FADM Date: 08/01/24 Loc: HO.MRI Attending Dr: Pete Varela MD Ordering Physician: Pete Varela MD Date of Service: 08/01/24 Procedure(s): MR knee LT wo con Accession Number(s): [id number] cc: Virginie Monet MD; Pete Varela MD [...] Steele MD in OV> 08/02/24 0855 DD/ 0854 TD/TT: 08/02/24 0854 Vp Of Global Marketing: [facility] External Provider IMG MRI PROCEDURES Final Result * (ABNORMAL) POCT Glucose (05/16/2024 3:32 PM EDT) Glucose Blood, POC 406(A) 60 - 200 mg/dL QC Media Lot # [id number] Lot# Expiration Date [id number] Blood Capillary blood specimen / Unknown 05/16/2024 3:32 PM EDT Jerrica Green NP POINT OF CARE TEST ENTER/EDIT OR DERABLES Final Result * POCT Hemoglobin (05/16/2024 3:31 PM EDT) Hemoglobin 13.9 12.0 - 15.0 QC Media Lot # [id number] Lot# Expiration Date Blood 05/16/2024 3:31 PM EDT Jerrica Green NP POINT OF CARE TEST ENTER/EDIT OR DERABLES Final Result * (ABNORMAL) Glucose, Whole Blood (05/16/2024 3:15 AM EDT) Glucose, Whole Blood 264(H) 60 - 115 mg/dL [facility] Comment:METER #: [id number] 05/16/2024 3:15 AM EDT 05/16/2024 3:21 AM EDT Generic External Data Provider LAB BLOOD ORDERAB LES Final Result [facility] [address] [place] [phone] * (ABNORMAL) Urinalysis, Complete, with Reflex to Culture (05/16/2024 12:47 AM EDT) Color Urine Yellow [facility] Appearance Urine Clear [facility] PH 6.0 5.0 - 9.0 [facility] Glucose Urine UA >=1000(A) Negative mg/dL [facility] Urine Blood Negative Negative [facility] Specific [place] - Urine >=1.030(H) 1.005 - 1.025 [facility] Urine Protein Trace Neg-Trace mg/dL [facility] Urine Ketones Negative Negative mg/dL [facility] Nitrite Urine Negative Negative [facility] Leukocyte Esterase Urine Negative Negative [facility] RBC Urine 0-2 0 - 2 /HPF [facility] Urine WBC 0-5 0 - 5 /HPF [facility] Urine Squamous Epithelial Cell 3-5 0 - 2 /HPF [facility] Urine Bacteria None Seen None Seen [facility] Hyaline Casts, Urine 0-2 0 - 2 /LPF [facility] 05/16/2024 12:4 7 AM EDT 05/16/2024 12:51 AM EDT Narrative [facility] - 05/16/2024 12:59 AM EDT [id number], Clean Catch Generic External Data Provider LAB URINE ORDERAB LES Final Result Performing Organization Address City/[facility]/ZIP Co de Phone Number [facility] [address] [place] [phone] * Beta-Hydroxybutyrate (05/15/2024 7:41 PM EDT) Beta-Hydroxybut yrate 0.12 0.02 - 0.27 mmol/L [facility] 05/15/2024 7:41 PM EDT 05/15/2024 7:43 PM EDT Generic External Data Provider LAB BLOOD ORDERAB LES Final Result Performing Organization Address [facility] de Phone Number [facility] [address] [place] [phone] * CBC auto differential (05/15/2024 7:41 PM EDT) White Blood Count 7.2 4.8 - 10.8 X10*3/uL [facility] Red Blood Count 5.21 4.20 - 5.50 X10*6/uL [facility] Hemoglobin 14.2 12.0 - 16.0 g/dl [facility] Hematocrit 42.0 37.0 - 47.0 % [facility] Mean Corpuscular Volume 80.6 80.0 - 98.0 fL [facility] Mean Corpuscular Hemoglobin 27.3 27.0 - 33.0 pg [facility] Mean Corpuscular HGB Conc 33.8 31.0 - 35.0 g/dl [facility] Red Cell Distribution Width 14.0 11.0 - 16.0 % [facility] Platelet Count 311 160 - 400 X10*3/uL [facility] Mean Platelet Volume 9.5 9.4 - 12.3 fL [facility] Neutrophils Percent Auto 53.1 45 - 73 % [facility] Imm Gran Pct Auto 0.3 0.0 - 0.4 % [facility] Lymphocytes Percent Auto 36.5 20 - 40 % [facility] Monocytes Percent Auto 7.5 2 - 11 % [facility] Eosinophils Percent Auto 2.2 0 - 4 % [facility] Basophils Percent Auto 0.4 0 - 2 % [facility] NRBC Pct Auto 0.0 0.0 - 0.2 /100WBC [facility] Neutrophils Absolute Auto 3.9 2.0 - 8.3 x10*3/uL [facility] Imm Gran Abs Auto 0.02 0.00 - 0.03 X10*3/uL [facility] Lymphocytes Absolute Auto 2.6 1.2 - 4.9 X10*3/uL [facility] Monocytes Absolute Auto 0.5 0.1 - 1.2 X10*3/uL [facility] Eosinophils Absolute Auto 0.2 0.0 - 0.4 X10*3/uL [facility] Basophils Absolute Auto 0.0 0.0 - 0.2 X10*3/uL [facility] NRBC Abs Auto 0.000 0.0 - 0.012 X10*3/uL [facility] 05/15/2024 7:41 PM EDT 05/15/2024 7:43 PM EDT us Generic External Data Provider LAB BLOOD ORDERAB LES Final Result [facility] [address] [place] [phone] * Lipase (05/15/2024 7:41 PM EDT) Lipase 45 8 - 78 U/L [facility] 05/15/2024 7:41 PM EDT 05/15/2024 7:43 PM EDT us Generic External Data Provider LAB BLOOD ORDERAB LES Final Result [facility] [address] [place] [phone] * (ABNORMAL) Comprehensive Metabolic Panel (05/15/2024 7:41 PM EDT) Sodium 132(L) 135 - 145 mmol/L [facility] Potassium 3.6 3.3 - 5.1 mmol/L [facility] Chloride 98 96 - 108 mmol/L [facility] Carbon Dioxide 23 22 - 29 mmol/L [facility] Anion Gap 15 12 - 20 [facility] Urea Nitrogen (BUN) 10 9 - 16 mg/dL [facility] Creatinine, Serum 1.06 0.5 - 1.4 mg/dL [facility] Creatinine Clr Calc Pharmacy 74.6 [facility] Comment:Provided height and weight: 172.72 cm,108.6 kg.eGFR (calculated from the MDRD study equation) and eCrCl(calculated from the Cockcroft-Gault equation) are based ondifferent parameters and may not yield comparable results.If eCrCl result is absurd, please check patient'sheight/weight. Estimated Glomerular Filt Rate 53 [facility] Comment:NOTE: For -Am erican individuals, multiply the result by 1.210.Chronic Kidney Disease: Estimated GFR < 60 mL/min/1.40y3Eypvar Kidney Disease: Estimated GFR < 15 mL/min/1.73m2 Glucose 463(HH) 60 - 115 mg/dL [facility] Comment:Critical value for t est(s): GLUR Results called to and readback by:YARA Person calling: KUSF Date: 60-26-70Yqgr:2017 Calcium 9.6 8.4 - 10.2 mg/dL [facility] Bilirubin, Total 0.3 0.0 - 1.0 mg/dL [facility] Aspartate Amino Transferase 11 5 - 31 U/L [facility] Alanine Aminotransferase 19 0 - 31 U/L [facility] Total Protein 6.9 6.5 - 8.0 g/dL [facility] Albumin Level 3.7 3.5 - 5.0 g/dL [facility] Alkaline Phosphatase 121(H) 39 - 117 U/L [facility] 05/15/2024 7:41 PM EDT 05/15/2024 7:43 PM EDT us Generic External Data Provider LAB BLOOD ORDERAB LES Final Result [facility] [address] [place] [phone] * Lipid Panel with Reflex to Direct LDL (04/22/2024 9:30 AM EDT) Triglycerides 149 <150 mg/dL [facility] Comment:Desirable Triglyceri de: less than 150 mg/dLBorderline High Triglyceride 150-199 mg/dLHigh Triglyceride: 200-499 mg/dLVery High Triglyceride: greater than or equal to 5OO mg/dL Cholesterol 154 <200 mg/dL [facility] Comment:Desirable Cholestero l: less than 200 mg/dLBorderline High Cholesterol: 200-239 mg/dLHigh Cholesterol: greater than 239 mg/dL LDL Cholesterol Calculated 79 <100 mg/dL [facility] Comment:Desirable LDL: less than 100 mg/dLNear Optimal/Above Optimal LDL: 110- 129 mg/dLBorderline High LDL: 130-159 mg/dLHigh LDL: 160-189 mg/dLVery High LDL: greater than or equal to 190 mg/dL HDL Cholesterol 46 >40 mg/dL [facility] Comment:Desirable HDL: great er than 40 mg/dL Note: This HDL assay may give artificially low results in patients with liver disease. Blood 04/22/2024 9:30 AM EDT 04/22/2024 11:35 AM EDT us Virginie Lopez MD LAB BLOOD ORDERABLES Final Result Performing Organization Address [facility]/ZIP Co de Phone Number [facility] [address] [place] [phone] * Hepatitis C Viral RNA, Quantitative, Real-Time PCR (04/22/2024 9:30 AM EDT) Hepatitis C Viral Load <15 NOT DETECTED NOT DETECTED IU/mL [facility] HCV Log PCR <1.18 NOT DETECTED NOT DETECTED Log IU/mL [facility] Comment:For additional infor mation, please refer [email or web address]/[email or web address](This link is being provided for informational/educational purposes only.)THIS TEST WAS PERFORMED AT:[employer] [place] [phone] PERRY MD Blood 04/22/2024 9:30 AM EDT 04/22/2024 11:35 AM EDT Virginie Lopez MD LAB BLOOD ORDERABLES Final Result Performing Organization Address [facility] de Phone Number [facility] [address] [place] [phone] * Albumin, Random Urine W/Creatinine (04/22/2024 9:30 AM EDT) Creatinine, Urine 193.55 mg/dL [facility] Microalbumin Urine 16.0 mg/L [facility] Microalbum Creatinine Ratio Ur 8.2 <30 ug/mg cr [facility] Comment:Albumin/Creatinine R atio Reference Ranges: Normal: < 30 ug/mg creatinine Microalbuminuria: 30 - 300 ug/mg creatinineClinical Albuminuria: > 300 ug/mg creatinine Urine (Urine, Random) 04/22/2024 9:30 AM EDT 04/22/2024 11:23 AM EDT Virginie Lopez MD LAB URINE ORDERABLES Final Result Performing Organization Address [facility]/ZIP Co de Phone Number [facility] [address] [place] [phone] * HIV-1/2 Antigen and Antibodies, Fourth Generation, with Reflexes (04/22/2024 9:30 AM EDT) HIV AB/AG Nonreactive Nonreactive [facility] Comment:HIV-1 p24 Ag and/or HIV-1/HIV-2 Ab not detected.A test result that is nonreactive does not exclude thepossibility of exposure to or infection with HIV-1 and/orHIV-2. Nonreactive results in this assay for individualswith prior exposure to HIV-1 and/or HIV-2 may be due toantigen and antibody levels that are below the limit ofdetection of this assay.The OUYA HIV Ag/Ab Combo assay result andsupplemental assay results should be interpreted inconjunction with the patient's clinical presentation,history and other laboratory results. If the results areinconsistent with clinical evidence, additional testing issuggested to confirm the result. Blood Venous blood specimen / Unknown 04/22/2024 9:30 AM EDT 04/22/2024 11:35 AM EDT Virginie Lopez MD LAB BLOOD ORDERABLES Final Result Performing Organization Address [facility] [facility] Co de Phone Number [facility] [address] [place] [phone] * (ABNORMAL) POCT HGB A1C (04/08/2024 9:31 AM EDT) Hemoglobin A1C 7.4(A) 4.0 - 6.0 % QC Media Lot # [id number] Lot# Expiration Date ,889 Blood 04/08/2024 9:31 AM EDT Virginie Lopez MD POINT OF CARE TEST EN TER/EDIT ORDERABLES Final Result * BI Mammogram Screening Tomosynthesis Bilateral (01/01/2024 8:00 AM EDT) Anatomical Region Laterality Modality Breast Bilateral Mammography 01/01/2024 8:00 AM EDT Narrative 01/29/2024 3:53 PM EDT ? [facility] ? [address] ?[place] [address] ? Mammography Report ? Signed ? Patient: Martins,Anastasia ?MR#: [id number] ?? 07 ? : 1965 ?Acct:[id number] ? Age/Sex: 58 / F ?ADM Date: 01/01/24 ? Loc: HO.MAMMO ? Attending Dr: Virginie Lopez MD ? Ordering Physician: Virginie Monet MD ?Results: ?? 1Negative ? Date of Service: 01/01/24 ?Follow Up: 1 Year From Orig ?? inal Mammogram ? Procedure(s): MM tomosynthesis screening BI ?? Accession Number(s): [id number] ? cc: Virginie Monet MD ? EXAMINATION: ?? MM SCREENING DIGITAL BREAST TOMOSYNTHESIS, BILATERAL ? CLINICAL INFORMATION: ? Screening. Asymptomatic. ? COMPARISON: ?? Mammography: This study is compared with prior exams dating back to ?? 2018. ? TECHNIQUE: ?? Digital breast tomosynthesis is performed in both the craniocaudal and ?? mediolateral oblique views along with computer-aided detection (CAD). ?? Synthesized 2D images are generated from the tomosynthesis. ? FINDINGS: ?? The breasts are heterogeneously dense, which may obscure small masses ?? (ACR BI-RADS breast composition Category c). ? There are no significant masses, abnormal calcifications, or other ?? abnormalities. ? MM/MM tomosynthesis screening BI ?? IMPRESSION: ?? No mammographic evidence of malignancy. ? ASSESSMENT: ? BI-RADS BI-RADS 1 - Negative ? RECOMMENDATION: ?? Routine annual mammography screening. ? 1 year F/U ? This examination should not preclude the clinical evaluation of a ?? suspicious palpable abnormality. ? This patient's information was entered into a reminder system with a ?? target due date for their next mammogram. ? Dictated By: ?Rebecca Morales MD ? Signed By: ?<Electronically signed by Rebecca Morales MD in OV> ? 01/29/24 1549 ? DD/ 0800 ? TD/TT: ? Vp Of Global Marketing: ? Procedure Note Mauricio Ribeiro - 01/29/2024 [facility] [address] [place] [address] Mammography Report Signed Patient: Virginie Martins AMR#: [id number] 07 : 1965Acct:[id number] Age/Sex: 58 / FADM Date: 01/01/24 Loc: HO.MAMMO Attending Dr: Virginie Lopez MD Ordering Physician: Virginie Monet MDResults: 1Negative Date of Service: 01/01/24Follow Up: 1 Year From Orig inal Mammogram Procedure(s): MM tomosynthesis screening BI Accession Number(s): [id number] cc: Virginie Monet MD EXAMINATION: MM SCREENING DIGITAL BREAST TOMOSYNTHESIS, BILATERAL CLINICAL INFORMATION: Screening. Asymptomatic. COMPARISON: Mammography: This study is compared with prior exams dating back to 2018. TECHNIQUE: Digital breast tomosynthesis is performed in both the craniocaudal and mediolateral oblique views along with computer-aided detection (CAD). Synthesized 2D images are generated from the tomosynthesis. FINDINGS: The breasts are heterogeneously dense, which may obscure small masses (ACR BI-RADS breast composition Category c). There are no significant masses, abnormal calcifications, or other abnormalities. MM/MM tomosynthesis screening BI IMPRESSION: No mammographic evidence of malignancy. ASSESSMENT: BI-RADS BI-RADS 1 - Negative RECOMMENDATION: Routine annual mammography screening. 1 year F/U This examination should not preclude the clinical evaluation of a suspicious palpable abnormality. This patient's information was entered into a reminder system with a target due date for their next mammogram. Dictated By: Rebecca Morales MD Signed By: <Electronically signed by Rebecca Morales MD in OV> 01/29/24 1549 DD/ 0800 TD/TT: Vp Of Global Marketing: Virginie Lopez MD IMG BI PROCEDURES Fin al Result * HPV mRNA E6/E7 (02/27/2018 3:34 PM EDT) HPV mRNA E6/E7 Not Detected NOT DETECTED [facility] Comment: This test was performed using the APTIMA(R) HPV Assay ([employer] This assay detects E6/E7 viral messenger RNA (mRNA) from 14 high-risk HPV types (16,18,31,33,35,39,45,51, 52,56,58,59,66,68). For additional information please refer to: http://education.[employer].Circle of Moms/faq/DWK133v2 (This link is being provided for informational/ educational purposes only.) The analytical performance characteristics of this assay have been determined by [facility] [place], [place]. The modifications have not been cleared or approved by the FDA. This assay has been validated pursuant to the CLIA regulations and is used for clinical purposes. Test Performed by [facility], [address] [place], [place] Adriel Barclay M.D., Ph.D., Director of Laboratories , [facility] [id number] Please note: ??Effective 03/27/2016, HPV testing will be performed using [employer]'s APTIMA test which targets mRNA. Detecting mRNA instead of DNA, as in older methods, offers significant improvements in specificity. 02/27/2018 3:34 PM EDT Ela Kern CNM HISTORICAL/NON ORDERABLE LABS Final Result [facility] [address] * Pap Smear (02/27/2018 12:00 AM EDT) Swab Ela Kern CNM LAB CYTOLOGY ORDERABLES F inal Result Performing Organization Address City/[facility]/ZIP Co de Phone Number [facility] [address] [place] [address] [phone] from Last 3 Months or Most Recently Relevant to Health Maintenance Insurance - ONE [employer] Care Teams Golf Club Repairer Relationship Specialty Start Date End Date Virginie Monet MD [address] [place] [address] PCP - General Family Medicine 07/30/20
== END 2024-08-13 12:10 | disposition home or self-care (01) ==
PROVIDERS: PCP Internal Medicine; Visit Provider Orthopaedic Surgery
DX: S83.242A Other tear of medial meniscus, current injury, left knee, initial encounter (principal)
CPT/HCPCS: 99213; G2211

== ENCOUNTER → 2024-08-13 11:28 | Outpatient (BNVA) | payer OTHER, SELFPAY | PROVIDERS: PCP Internal Medicine; Visit Provider Orthopaedic Surgery | DX: S83.242A Other tear of medial meniscus, current injury, left knee, initial encounter (principal) | CPT/HCPCS: 99212 ==

== ENCOUNTER 2024-08-26 08:53 | Outpatient (AMB) | payer OTHER, SELFPAY ==
[2024-08-26 09:08] VITALS: BP 152/80; PULSE 78; O2SAT 96; BMI 36.2
--- NOTE | 2024-08-26 09:08 | MHC.OFFVIS ---
Vital Signs 08/26/24 09:08 Height 5 ft 8 in Weight 238 lb BMI 36.2 BP 152/80 H Blood Pressure Location Lt brachial Position Sitting Pulse 78 Pulse Source Pulse Oximeter Pulse Oximetry (%) 96 Oxygen Delivery Method Room Air Intake Visit Reasons: Asthma-COPD/L Knee Arthroscopy (Dr. Varela) Housing And Residence Life Director Required: No Marble Supervisor: Marble Supervisor offered & declined Accompanied by: Self / Same As Patient Allergies adhesive tape Allergy (Severe, Verified 08/26/24 09:10) BLISTERS Tetanus Vaccines and Toxoid [TETANUS VACCINES & TOXOID] Allergy (Intermediate, Verified 08/26/24 09:10) SWELLING, REDNESS surgical tape Allergy (Severe, Uncoded 08/26/24 09:10) hives/boils Medication List - Last Reconciled 08/26/24 by Ml Arita LPN acetaminophen (Tylenol Extra Strength) 500 mg PO Q6H PRN albuterol sulfate 90 mcg/actuation 2 puffs PO Q6H PRN 30 days albuterol sulfate 2.5 mg (3 mL) inhalation QID PRN amitriptyline 75 mg PO BEDTIME aripiprazole 2 mg PO DAILY atorvastatin 40 mg PO DAILY CPAP (CPAP Machine/Device) As directed duloxetine 60 mg PO DAILY lirdvxgxggg-qkgkdbvnp-docunuic 200-62.5-25 mcg (Trelegy Ellipta) 1 inh inhalation DAILY 30 days hydrochlorothiazide 12.5 mg PO DAILY ibuprofen 800 mg PO Q8H PRN isosorbide mononitrate ER 30 mg PO DAILY lancets (FreeStyle Lancets) Once a day levothyroxine 125 mcg PO DAILY 30 days montelukast (Singulair) 10 mg PO BEDTIME 30 days naloxone 4 mg/actuation (Narcan) 4 mg intranasal Q2M PRN naproxen 500 mg PO BID PRN 10 days nebulizers As directed nebulizers As directed omeprazole 20 mg PO BID oxycodone 5 mg PO TID PRN ropinirole 3 mg PO BEDTIME semaglutide (Ozempic) 0.5 mg subcut QWEEK HPI HPI Asthma-COPD/L Knee Arthroscopy (Dr. Varela): Details: Virginie is a pleasant 58 year old female, current smoker, with underlying asthma COPD overlap syndrome, pulmonary hypertension, DMII and hypertension. She is under the care of Dr. Johnson and presents today for preoperative pulmonary evaluation for proposed left knee arthroscopy with Dr. Varela next month. At baseline, she has been well controlled on Trelegy and Singulair, requiring albuterol infrequently. She currently denies any respiratory symptoms and reports improvements in dyspnea since pulmonary rehab. She denies any recent URI or need for abx/prednisone in the last 2-3 months. She denies prior need for supplemental oxygen, prior overnight oximetry unremarkable. PFT performed 09/2023 revealed moderate obstructive defect, with mildly decreased DLCO. [facility] Medical History Pulmonary hypertension Dyspnea Vitamin D deficiency Mixed irritable bowel syndrome Michael's thyroiditis Fibromyalgia Type 2 diabetes mellitus Obesity (BMI 30-39.9) Prediabetes Hypothyroidism BOY (obstructive sleep apnea) Hypertension Palpitations Tobacco dependence Pulmonary nodules Asthma-COPD overlap syndrome Surgical History History of excision of mass (09/28/21) Status post tendon repair History of esophagogastroduodenoscopy (EGD) H/O hand surgery Hx of colonoscopy Hx of lithotripsy Status post trigger finger release History of colon resection H/O excision of ganglion cyst H/O arthroscopy of right knee H/O wrist surgery H/O release of tendon Hx of cholecystectomy Family History Father Myocardial infarction Hypertension Diabetes CVD (cardiovascular disease) Mother Restless leg syndrome Diabetes Paternal Aunt Breast cancer Uterine cancer Social History (Updated 08/26/24 @ 09:13 by Ml Arita LPN) Alcohol intake: current Alcohol intake frequency: 3 or more drinks per day Patient Tobacco Use Status: Current everyday Tobacco user Cigarettes Per Day: 6 Years Smoked: 30 +/- Review of Systems Const Denies chills, Denies excessive sweating, Denies fever(s), Denies headache(s) and Denies night sweats Eyes Denies dry eyes, Denies irritation and Denies itchy eyes ENT Reports Normal hearing present and Denies headache(s) Card Denies chest pain, Denies chest pain at rest, Denies chest pain with activity, Denies claudication, Denies leg edema, Denies dyspnea, Denies dyspnea on exertion, Denies orthopnea and Denies paroxysmal nocturnal dyspnea Resp Denies chest congestion, Denies cough, Denies excessive phlegm production, Denies pain on inspiration, Denies pain with cough, Denies dyspnea, Denies dyspnea on exertion, Denies stridor and Denies wheezing Musc Denies myalgias Neuro Reports Normal hearing present and Denies headache(s) Endo Denies excessive sweating Gerson/Lymph Denies lymphadenopathy Aller/Immun Denies itchy eyes, Denies seasonal rhinorrhea and Denies wheezing Physical Exam Vital Signs: Last Vital Signs Pulse 78 08/26/24 09:08 BP 152/80 H 08/26/24 09:08 Pulse Ox 96 08/26/24 09:08 Oxygen Delivery Method Room Air 08/26/24 09:08 BMI result Body Mass Index 36.2 Const General: cooperative, healthy appearing, comfortable, no acute distress, well developed and alert Nutritional Appearance: obese Orientation/consciousness: patient oriented x3 Limitations: no limitations HEENT Head: Yes normal to inspection, Yes normocephalic and Yes atraumatic Ears: hearing grossly normal bilaterally and external ears normal Eyes General: appearance normal, both eyes and all related structures Eyelids: Yes eyelids normal Sclerae: sclerae normal EOM: EOMs intact bilaterally Neck Neck: Yes normal visual inspection and Yes no lymphadenopathy Lymphatic: no lymphadenopathy noted Chest Chest palpation & inspection: normal inspection of the chest Resp Effort & Inspection: normal respiratory effort, able to speak in complete sentences, no audible wheezes, no cough, no stridor, not tachypneic, no tripod positioning and no use of accessory muscles Auscultation: clear to auscultation bilaterally Cardio Jugular venous distension: no JVD Rate: regular rate Rhythm: regular rhythm Skin Other: warm, dry General skin exam: no rashes or lesions noted Neuro General: patient oriented x3 Cranial nerves: Yes Normal hearing present Cognition (Neuro): normal cognition Gait exam (Neuro): Normal gait present Extrem General: Yes normal to inspection, Yes capillary refill normal, Yes no clubbing, cyanosis or edema and Yes no pedal edema Psych Appearance: grossly normal and well kempt Speech and movement: Normal speech and movement present and Clear speech present Affect: normal affect Attitude: cooperative Thought process: Normal thought process present Thought content: Normal thought content present Insight: Good insight present (Psych) Judgement: Good judgement present (Psych) Quality Reporting (2019) Adult ([facility] 138/2/) Smoking risk assessment performed?: Yes Patient Tobacco Use Status: Current everyday Tobacco user Assessment & Plan Assessment & Plan (1) Pulmonary hypertension: Code(s): I27.20 - Pulmonary hypertension, unspecified Category: Medical (2) Asthma-COPD overlap syndrome: Code(s): J44.9 - Chronic obstructive pulmonary disease, unspecified Category: Medical (3) Tobacco dependence: Code(s): F17.200 - Nicotine dependence, unspecified, uncomplicated Category: Medical (4) Pulmonary nodules: Comment: largest nodule 7mm nodule 11/2019, 05/04 was unchanged Code(s): R91.8 - Other nonspecific abnormal finding of lung field Category: Medical (5) Encounter for preoperative pulmonary examination: Code(s): Z01.811 - Encounter for preprocedural respiratory examination Category: Medical Plan Virginie presents for preoperative pulmonary evaluation for proposed left knee arthroscopy with Dr. Varela. She denies respiratory symptoms at this time, respiratory exam unremarkable and VSS WNL. Smoking cessation reviewed. She has been doing quite well on Trelegy and Singulair, requiring albuterol infrequently and is medically optimized from a pulmonary prospective. She has not required steroids or antibiotics in the last three months. At this time, she is considered low risk for perioperative pulmonary complications. Consider bronchodilators during the perioperative period. All questions were answered and patient is in agreement of plan. Will follow up for regularly scheduled appointment with Dr. Johnson or sooner if needed. Coding Level of Care Code Est Pt Level 4 (21508) Complex EM visit Add On G2211 Diagnoses Pulmonary hypertension I27.20 Asthma-COPD overlap syndrome J44.9 Tobacco dependence F17.200 Pulmonary nodules R91.8 Encounter for preoperative pulmonary examination Z01.811
--- OUTSIDE RECORDS SUMMARY | 2024-08-26 09:34 | XMS_ITS | Encounter Summary ---
Author Organization [employer] Address [address] [place] [address] Care Team Providers Care Sole Splitter Name Role Phone Virginie Monet MD Primary Care Provide r Encounter Details Date Type Department Care Team ([facility] Contact Info) Description 10/12/2023 Orders Only [facility] [address] [place], [place] [phone] Virginie Monet MD [address] [place] [address] Social History Tobacco Use Types Packs/Day Years [...] Description 09/09/2024 9:45 AM EST Office Visit [address] [address] 09/16/2024 10:45 AM EST Office Visit [address] [address] Virginie Monet MD [address] [place] [phone] documented as of this encounter Visit Diagnoses Not on filedocumented in this encounter Additional Health Concerns Assessment Noted Time PHQ-9 Depression Total Score: 0 05/29/20 23 2:13 PM EST documented as of this encounter Care Teams Sole Splitter Relationship Specialty Start Date End Date Virginie Monet MD [address] [place] [phone] PCP - General Family Medicine 07/30/20 documented as of this encounter
--- OUTSIDE RECORDS SUMMARY | 2024-08-26 09:34 | XMS_ITS | Encounter Summary ---
Author Organization [employer] Address [address] [place] [address] Care Team Providers Care Professor Of Psychology Name Role Phone Virginie Monet MD Primary Care Provide r Encounter Details Date Type Department Care Team ([facility] Contact Info) Description 10/31/2023 Telephone [facility] [address] [place], [place] [phone] Virginie Monet MD [address] [place] [address] Social History Tobacco Use Types Packs/Day Years [...] 10/31/2023 11:32 AM EDT Faxed referral for MOVIE THEATER MANAGER services for Ry today, per patient request. documented in this encounter Plan of Treatment Upcoming Encounters Date Type Department Care Team (Late st Contact Info) Description 09/09/2024 9:45 AM EST Office Visit [address] [address] 09/16/2024 10:45 AM EST Office Visit [facility] [address] [place] [phone] Virginie Monet MD [address] [place] [phone] documented as of this encounter Visit Diagnoses Not on filedocumented in this encounter Additional Health Concerns Assessment Noted Time PHQ-9 Depression Total Score: 0 05/29/20 23 2:13 PM EST documented as of this encounter Care Teams Professor Of Psychology Relationship Specialty Start Date End Date Virginie Monet MD [address] [place] [phone] PCP - General Family Medicine 07/30/20 documented as of this encounter
--- OUTSIDE RECORDS SUMMARY | 2024-08-26 09:34 | XMS_ITS | Data Portability ---
Author Organization [employer] Address [address] [place] [phone] Care Team Providers Care Creative Engagement Director Name Role Phone HIM CCA OTHER SHANKAR SON Primary Care Provider [phone] Assessment No assessment recorded. Plan of Treatment [...] Not Available Not Available No t Available [employer] Ultra Test strips USE DIRECTED TWICE DAILY [...] active Not Available Not Available Not Available [employer] COVID-19 Rapid At-Home kit TEST DIRECTED TODAY [...] SNOMED-CT Code Diagnosis ICD10 Code Diagnosis Note [id number] Bryce Rivera MD Main - instED [address] [place] [phone] 03/04/2024 20:21:06 03/04/2024 22:03:09 Headache [id number] R51.9 Reports a history of migraines, but [...] Wills Member ID Guarantor Name 03/04/2024 1 [facility] - DOS ON OR AFTER 2022 - DUAL ELIGIBLE - NURSING HOME OPTIONS AND ONE CARE (MEDICARE REPLACEMENT/ADV ANTAGE - HMO) Shankar Martins [id number] Shankar Martins Notes Date Note Type Note Provider Name and Address Organization Details Recorded Time 03/04/2024 text/html CRC Nurse Triage Notes (Racheal Pabon): Reason For Request: Pt reporting severe headache for 3 weeks>suffers from migraines and has taken medication with no improvements>162/90 BP Chief Complaints: Headache PMH: Hypertension, Other Allergies: No Known Pain Assessment: Level 10 out of 10 Comments: Warper Fixer verified the member's name//address and phone number. [...] ................... ................... ................... ................... ................... ................... ........ Shank Skinner Note From Ho Joe: Dispatched to the [...] agreed to go by ambulance. 911 contacted [facility] on scene and [facility] took patient care. all times are approx.report completed by sarah joe ................... ................... ................... ................... ................... ................... ................... ........ Disposition: Fulfilled Bryce Rivera MD [address] [place] [address],[address], [place], [phone], [employer] 03/04/2024 21:30:34 OBGyn Episode No OBEpisode recorded.
--- OUTSIDE RECORDS SUMMARY | 2024-08-26 09:35 | XMS_ITS | Encounter Summary ---
Author Organization [employer] Address [address]t [place] [address] Care Team Providers Care Plastic Eye Technician Name Role Phone Virginie Monet MD Primary Care Provide r Encounter Details Date Type Department Care Team ([facility] Contact Info) Description 08/23/2022 Orders Only [facility] [address] [place] [phone] Yolanda Roes DO [address] [place] [phone] Social History Tobacco Use Types Packs/Day Years [...] Office Visit [facility] [address] [place] [address] [phone] 09/16/2024 10:45 AM EST Office Visit [facility] [address] [place] [address] [phone] Virginie Monet MD [address] [place] [phone] documented as of this encounter Visit Diagnoses Not on filedocumented in this encounter Care Teams Plastic Eye Technician Relationship Specialty Start Date End Date Virginie Monet MD [address] [place] [address] PCP - General Family Medicine 07/30/20 documented as of this encounter
--- OUTSIDE RECORDS SUMMARY | 2024-08-26 09:35 | XMS_ITS | Encounter Summary ---
Author Organization [employer] Address [address] [place] [address] Care Team Providers Care Hydraulic Jack Adjuster Name Role Phone Virginie Monet MD Primary Care Provide r Reason for Visit * Reason Onset Date Comments Appointment Request 06/25/2023 Encounter Details Date Type Department Care Team ([facility] Contact Info) Description 06/25/2023 Telephone [facility] [address] [place], [place] [phone] Virginie Monet MD [address] [place] [address] Appointment Request Social History Tobacco Use Types [...] call back to r/s appt on 06/25 com writer did cancel appt per patient request documented in this encounter Plan of Treatment Upcoming Encounters Date Type Department Care Team (Late st Contact Info) Description 09/09/2024 9:45 AM EST Office Visit [address] [address] 09/16/2024 10:45 AM EST Office Visit [facility] [address] [place] [phone] Virginie Monet MD [address] [place] [phone] documented as of this encounter Visit Diagnoses Not on filedocumented in this encounter Additional Health Concerns Assessment Noted Time PHQ-9 Depression Total Score: 0 05/29/20 23 2:13 PM EST documented as of this encounter Care Teams Hydraulic Jack Adjuster Relationship Specialty Start Date End Date Virginie Monet MD [address] [place] [address] PCP - General Family Medicine 07/30/20 documented as of this encounter
--- OUTSIDE RECORDS SUMMARY | 2024-08-26 09:35 | XMS_ITS | Encounter Summary ---
Author Organization [employer] Address [address] [facility] 7[address] [place] [address] Care Team Providers Care Remediation Bioanalytics Consultant Name Role Phone Virginie Monet MD Primary Care Provide r Reason for Visit * Reason Onset Date Comments Med Refill 06/04/2024 Encounter Details Date Type Department Care Team ([facility] Contact Info) Description 06/04/2024 Telephone [facility] [address] [place], [place] [phone] Virginie Monet MD [address] [place] [address] Med Refill Social History Tobacco Use Types [...] immediate release tablet To be sent to: [id number] - [place], [place] - [address] [facility] documented in this encounter Plan of Treatment Upcoming Encounters Date Type Department Care Team (Late st Contact Info) Description 09/09/2024 9:45 AM EST Office Visit [facility] [address] [place] [address] [phone] 09/16/2024 10:45 AM EST Office Visit [facility] [address] [place] [address] Virginie Monet MD [address] [place] [address] documented as of this encounter Visit Diagnoses Not on filedocumented in this encounter Additional Health Concerns Assessment Noted Time PHQ-9 Depression Total Score: 15 024 11:32 AM EDT documented as of this encounter Care Teams Remediation Bioanalytics Consultant Relationship Specialty Start Date End Date Virginie Monet MD [address] [place] [address] PCP - General Family Medicine 07/30/20 documented as of this encounter
--- OUTSIDE RECORDS SUMMARY | 2024-08-26 09:35 | XMS_ITS | Encounter Summary ---
Author Organization [employer] Address [address] [place] [address] Care Team Providers Care Correspondence Specialist Name Role Phone Virginie Monet MD Primary Care Provide r Reason for Visit * Reason Onset Date Comments Nurse Triage 05/19/2024 Encounter Details Date Type Department Care Team ([facility] st Contact Info) Description 05/19/2024 Telephone [facility] MEDICINE [address] [place], [place] [phone] Virginie Monet MD [address] [place] [address] Nurse Triage Social History Tobacco Use Types [...] to obtain insulin today can return to [facility] for exam today and possible insulin admin [...] Time Provider Department Center 05/27/2024 9:45 AM [facility] CHRONIC PAIN CLINIC MEDICINE [facility] 05/29/2024 11:30 AM [facility] RED TEAM NURSE MEDICINE [facility] Video visit offer not recorded Positive [...] caller accepted this outcome. Please contact at [phone] documented in this encounter Plan of Treatment Upcoming Encounters Date Type Department Care Team (Late st Contact Info) Description 09/09/2024 9:45 AM EST Office Visit [facility] [address] [place] [phone] 09/16/2024 10:45 AM EST Office Visit [address] [address] Virginie Monet MD [address] [place] [address] documented as of this encounter Visit Diagnoses Not on filedocumented in this encounter Additional Health Concerns Assessment Noted Time PHQ-9 Depression Total Score: 15 024 11:32 AM EDT documented as of this encounter Care Teams Correspondence Specialist Relationship Specialty Start Date End Date Virginie Monet MD [address] [place] [address] PCP - General Family Medicine 07/30/20 documented as of this encounter
--- OUTSIDE RECORDS SUMMARY | 2024-08-26 09:35 | XMS_ITS | Encounter Summary ---
Author Organization [employer] Address [address] 7[address] [place] [address] Care Team Providers Care Aging Box Hand Name Role Phone Virginie Monet MD Primary Care Provide r Reason for Visit * Reason Comments Med Refill Encounter Details Date Type Department Care Team ([facility] st Contact Info) Description 08/01/2024 Refill [facility] MED[facility]INE [address] [place], [place] [phone] Virginie Monet MD [address] [place], [place] [phone] Essential hypertension Social History Tobacco Use Types [...] EST Office Visit [facility] [address] [place] [address] 09/16/2024 10:45 AM EST Office Visit [address] [address] Virginie Monet MD [address] [place] [address] documented as of this encounter Visit Diagnoses Diagnosis Essential hypertension Unspecified essential hypertension documented in this encounter Additional Health Concerns Assessment Noted Time PHQ-9 Depression Total Score: 15 024 11:32 AM EDT documented as of this encounter Care Teams Aging Box Hand Relationship Specialty Start Date End Date Virginie Monet MD [address] [place] [phone] PCP - General Family Medicine 07/30/20 documented as of this encounter
--- OUTSIDE RECORDS SUMMARY | 2024-08-26 09:35 | XMS_ITS | Clinical Summary ---
Author Organization [employer] Address [address] 7t [place] [address] Care Team Providers Care Binding Printer Name Role Phone Virginie Monet MD Primary [...] spray into affected nostril(s) See administration instructions. Banks 1 spray by intranasal route once; if [...] complication, without long-term current use of insulin ([facility]) Use 1 sensor every 14 days per package directions 2 each 2022 Active Continuous Blood Gluc Boat Hand (FreeStyle Shane 2 [place]) deviceIndication s:Type 2 diabetes mellitus without complication, without long-term current use of insulin ([facility]) Use reader for CGM per package directions [...] hyperglycemia, without long-term current use of insulin ([facility]) Inject 0.5 mg under the skin 1 (one) time per week. 1 each 12 2023 Active ARIPiprazole (Abilify) 2 MG tabletIndication s:Depression, unspecified depression type TAKE 1 TABLET(2 MG) BY MOUTH IN THE MORNING 30 tablet 1 2023 Active Sodium Fluoride 5000 Plus 1.1 % cream BRUSH TEETH EVERY MORNING AND AT BEDTIME DIRECTED 2023 Active Lancets (SumZeroTouch Delica Plus Omhemr79W) miscIndications: Type 2 diabetes mellitus with hyperglycemia, without long-term current use of insulin ([facility]) USE DIRECTED TWICE DAILY 100 each 11 2023 Active OneTouch Ultra Test test stripIndications :Type 2 diabetes mellitus with hyperglycemia, without long-term current use of insulin ([facility]) USE DIRECTED TWICE DAILY 100 strip 11 [...] hyperglycemia, without long-term current use of insulin ([facility]) Check blood sugar before 1 meal ( breakfast or lunch) if sugar >250-299 administer 3 units, if 300-349, administer 6 units, if >350 administer 9 units and call office. 1 each 2023 Active pen needle 31G x 5 mm miscIndications: Type 2 diabetes mellitus with hyperglycemia, without long-term current use of insulin ([facility]) Use as instructed 100 each 12 05/16 Active omeprazole (PriLOSEC) [address] capsule TAKE 1 CAPSULE BY MOUTH IN THE MORNING AND AT BEDTIME 180 capsule 1 2023 Active insulin lispro (HumaLOG KWIKPEN) 100 UNIT/ML injectionIndicat ions:Type 2 diabetes mellitus with hyperglycemia, without long-term current use of insulin ([facility]) ADMINISTER ONCE A DAY WITH 1 MEAL, [...] per day. 30 tablet 2 08/01 Discontinued oxyCODONE (Roxicodone) 5 MG immediate release [...] oxycodone 5mg Q8H PRN Indication: fibromyalgia Last [employer] Agreement: 01/09/24 BOY (obstructive sleep apnea) 05/27/2024 [...] AM EDT): Dr Radha Schulz (psychiatrist) phone [phone], is now taking over of her mental health and will take over her medications for mental health Diverticular disease 09/11/2023 Epigastric hernia 09/11/2023 Incisional hernia 09/11/2023 Osteoarthritis 09/11/2023 Assessment & Plan (10/11/2023 11:50 AM EDT): C/w PRN meds Patient will go to medical records for guidance for new WEIGHT ANALYST services Pain in both hands 08/27/2023 Assessment & Plan (10/11/2023 11:51 AM EDT): As above Class 2 severe obesity due t o excess calories with serious comorbidity in adult 05/29/2023 Assessment & Plan (05/16/2024 10:23 AM EDT): Discussed re weight reduction options including exercise, life style modifications, diet and referral to it security specialist. Recommended to decrease soda and sugary beverage [...] Assessment & Plan (10/11/2023 11:52 AM EDT): WEIGHT ANALYST services will be requested Assessment & Plan [...] Assessment & Plan (11/14/2022 10:20 AM EDT): ushaley yeast infection, patient on jardiance and with [...] pill count as expected Pt prefers individual [employer] appointments, will schedule with Benita Mahmood RN [...] in 3 weeks Follow up closely with MH provider, will refer to N. Multiple nodules of lung 11/22/2018 Kidney stone 09/10/2018 Menopausal syndrome 05/09/2018 Dyslipidemia 01/04/2018 Depression, recurrent 12/26/2017 Assessment & Plan (03/11/2024 9:33 PM EDT): Virginie spoke with today about getting a referral for OP therapy Assessment & Plan (09/29/2022 12:49 PM EDT): Pt has been taking lower dose of aripiprazole due to lack of MH provider Migraine without status migrainosus, not intract able 12/26/2017 Mild intermittent asthma 12/26/2017 Obesity 12/26/2017 Peptic ulcer 12/26/2017 Resolved Problems Problem Noted Date Diagnosed Date Resolved Date Prediabetes 01/04/2018 04/22/2024 Encounters Date Type Department Care Team Description 08/12/2024 9:45 AM EST Office Visit [facility] [address] [place] [address] Racheal Flynn, ARNP Fibromyalgia (Primary Dx); Long-term current use of opiate analgesic 08/12/2024 Travel 08/05/[address] 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 [address] [place] [address] Virginie Monet MD Essential hypertension 07/30/2024 Refill [facility] [address] [place] [address] Virginie Monet MD Chronic bilateral low back pain without sciatica 07/28/[address] [facility] [address] [place] [address] Virginie Monet MD Appointment Request 07/23/[address] [facility] [address] [place] [address] Virginie Monet MD Depression, unspecified depression type 07/17/[address] [facility] [address] [place] [address] Jerrica Green NP Type 2 diabetes mellitus with hyperglycemia, without long-term current use of insulin ([facility]) 07/01/[address] [facility] [address] [place] [address] Virginie Monet MD Chronic bilateral low back pain without sciatica 06/30/[address] [facility] [address] [place] [address] Virginie Monet MD Durable Medical Equipment 06/24/[address] [facility] [address] [place] [address] Virginie Monet MD 06/20/[address] [facility] [address] [place], [place] [phone] Bridgette Mahmood MD 06/04/[address] [facility] [address] [place] [address] Krupa Gonzalez, summer nanny bilateral low back pain without sciatica 06/04/[address] [address] Virginie Monet MD Nurse Triage 06/04/[address] [address] Virginie Monet MD Med Refill 06/02/[address] [address] Virginie Monet MD Durable Medical Equipment 05/28/[address] [address] Benita Mahmood RN BPI Scoring 05/27/2024 9:45 AM EST Office Visit [address] [address] Dahiana Foreman MD Osteoarthritis, unspecified osteoarthritis type, unspecified site (Primary Dx); Opioid contract exists; Fibromyalgia 05/27/2024 Travel from Last 3 Months Immunizations Name Administration [...] Description 09/09/2024 9:45 AM EST Office Visit [facility] [address] [place] [address] 09/16/2024 10:45 AM EST Office Visit [facility] [address] [place] [address] Virginie Monet MD [address] [place] [address] Health Maintenance Due Date Last Done Comments [...] - 1-dose 75+ series) 2040 Pneumococcal Vaccine: 50+ Years Completed 02/02/2023, 11/16/2016 HIV Screening Completed 04/22/2024 [...] EST Osteoarthritis, unspecified osteoarthritis type, unspecified site HEPATITIS C VIRAL RNA, QUANTITATIVE, REAL-TIME PCR Routine 04/22/2024 9:30 AM EDT Type 2 diabetes mellitus with hyperglycemia, without long-term current use of insulin ([facility]) HIV 1/2 ANTIGEN/ANTIBODY, FOURTH GENERATION W/RFL Routine 04/22/2024 9:30 AM EDT Type 2 diabetes mellitus with hyperglycemia, without long-term current use of insulin ([facility]/HCC) ALBUMIN, RANDOM URINE W/CREATININE Routine 04/22/2024 9:30 AM EDT Type 2 diabetes mellitus with hyperglycemia, without long-term current use of insulin (CMS/HCC) LIPID PANEL WITH REFLEX TO DIRECT LDL Routine 04/22/2024 9:30 AM EDT Type 2 diabetes mellitus with hyperglycemia, without long-term current use of insulin ([facility]) POCT GLYCATED HEMOGLOBIN, TOTAL Routine 04/08/2024 9:31 AM EDT Type 2 diabetes mellitus with hyperglycemia, without long-term current use of insulin (CMS/[facility]) BI MAMMOGRAM SCREENING TOMOSYNTHESIS BILATERAL Routine 01/01/2024 [...] - 08/12/2024 1:45 PM EST ..[employer] cup Lot#[id number] Exp. 04/09/26 Internal Pass Control Racheal Flynn ARNP POINT OF CARE TEST ENTER/EDIT ORDERABLES Final Result * MR Knee w/o Contrast Left (08/02/2024 8:54 AM EST) Anatomical Region Laterality Modality Magnetic Resonan ce 08/02/2024 8:54 AM EST Narrative 08/02/2024 8:56 AM EST ? [facility] ?[address] ?[place], [place] [address] ? Magnetic Resonance Report ? Signed ? Patient: Martins,Anastasia ?MR#: [id number] ?? 07 ? : 1965 ?Acct:[id number] ? Age/Sex: 58 / F ?ADM Date: 08/01/24 ? Loc: HO.MRI ? Attending Dr: Pete Varela MD ? Ordering Physician: Pete Varela MD ?? Date of Service: 08/01/24 ?? Procedure(s): MR knee LT wo con ?? Accession Number(s): [id number] ? cc: Virginie Monet MD; Pete Varela MD ? CLINICAL HISTORY: S83.032A - Other tear of medial meniscus, current [...] on ?? 08/02/2024 08:54:22 ? Dictated By: ?Bodne,Landon MD ? Signed By: ?<Electronically signed by Landon Steele MD in OV> ?08/02/24 0855 ? DD/ 0854 ? TD/TT: 08/02/24 0854 ? Operational Intelligence Analyst: ? Procedure Note Mauricio Ribeiro - 08/02/[address] [address] Magnetic Resonance Report Signed Patient: Virginie Martins AMR#: [id number] 07 : 1965Acct:[id number] Age/Sex: 58 / FADM Date: 08/01/24 Loc: HO.MRI Attending Dr: Pete Varela MD Ordering Physician: Pete Varela MD Date of Service: 08/01/24 Procedure(s): MR knee LT wo con Accession Number(s): [id number] cc: Virginie Monet MD; Pete Varela MD [...] 08/02/24 0855 DD/ 0854 TD/TT: 08/02/24 0854 Operational Intelligence Analyst: [facility] External Provider IMG MRI PROCEDURES Final Result * Lipid Panel with Reflex to Direct LDL (04/22/2024 9:30 AM EDT) Triglycerides 149 <150 mg/dL [facility] Comment:Desirable Triglyceri de: less than 150 mg/dLBorderline High Triglyceride 150-199 mg/dLHigh Triglyceride: 200-499 mg/dLVery High Triglyceride: greater than or equal to 5OO mg/dL Cholesterol 154 <200 mg/dL [facility] Comment:Desirable Cholestero l: less than 200 mg/dLBorderline High Cholesterol: 200-239 mg/dLHigh Cholesterol: greater than 239 mg/dL LDL Cholesterol Calculated 79 <100 mg/dL [facility] Comment:Desirable LDL: less than 100 mg/dLNear Optimal/Above Optimal LDL: 110- 129 mg/dLBorderline High LDL: 130-159 mg/dLHigh LDL: 160-189 mg/dLVery High LDL: greater than or equal to 190 mg/dL HDL Cholesterol 46 >40 mg/dL [facility] Comment:Desirable HDL: great er than 40 mg/dL Note: This HDL assay may give artificially low results in patients with liver disease. Blood 04/22/2024 9:30 AM EDT 04/22/2024 11:35 AM EDT us Virginie Lopez MD LAB BLOOD ORDERABLES Final Result Performing Organization Address [facility]/ZIP Co de Phone Number [facility] [address] [place] [address] [phone] * Hepatitis C Viral RNA, Quantitative, Real-Time PCR (04/22/2024 9:30 AM EDT) Pathologist [facility] Hepatitis C Viral Load <15 NOT DETECTED NOT DETECTED IU/mL [facility] HCV Log PCR <1.18 NOT DETECTED NOT DETECTED Log IU/mL [facility] Comment:For additional infor mation, please refer tohttp://education.[employer]/faq/CGR87t2(This link is being provided for informational/educational purposes only.)THIS TEST WAS PERFORMED AT:[facility] [place] [id number] PERRY MD Blood 04/22/2024 9:30 AM EDT 04/22/2024 11:35 AM EDT us Virginie Lopez MD LAB BLOOD ORDERABLES Final Result Performing Organization Address [facility]/ZIP Co de Phone Number [facility] [address] [place] [address] [phone] * Albumin, Random Urine W/Creatinine (04/22/2024 9:30 AM EDT) Creatinine, Urine 193.55 mg/dL [facility] Microalbumin Urine 16.0 mg/L [facility] Microalbum Creatinine Ratio Ur 8.2 <30 ug/mg cr [facility] Comment:Albumin/Creatinine R atio Reference Ranges: Normal: < 30 ug/mg creatinine Microalbuminuria: 30 - 300 ug/mg creatinineClinical Albuminuria: > 300 ug/mg creatinine Urine (Urine, Random) 04/22/2024 9:30 AM EDT 04/22/2024 11:23 AM EDT us Virgiine Lopez MD LAB URINE ORDERABLES Final Result Performing Organization Address [facility]/ZIP Co de Phone Number [facility] [address] [place] [address] [phone] * HIV-1/2 Antigen and Antibodies, Fourth Generation, with Reflexes (04/22/2024 9:30 AM EDT) HIV AB/AG Nonreactive Nonreactive [facility] Comment:HIV-1 p24 Ag and/or HIV-1/HIV-2 Ab not detected.A test result that is nonreactive does not exclude thepossibility of exposure to or infection with HIV-1 and/orHIV-2. Nonreactive results in this assay for individualswith prior exposure to HIV-1 and/or HIV-2 may be due toantigen and antibody levels that are below the limit ofdetection of this assay.The [employer] HIV Ag/Ab Combo assay result andsupplemental assay results should be interpreted inconjunction with the patient's clinical presentation,history and other laboratory results. If the results areinconsistent with clinical evidence, additional testing issuggested to confirm the result. Blood Venous blood specimen / Unknown 04/22/2024 9:30 AM EDT 04/22/2024 11:35 AM EDT us Virginie Lopez MD LAB BLOOD ORDERABLES Final Result Performing Organization Address [facility]/ZIP Co de Phone Number [facility] [address] [place] [address] [phone] * (ABNORMAL) POCT HGB A1C (04/08/2024 9:31 AM EDT) Hemoglobin A1C 7.4(A) 4.0 - 6.0 % QC Media Lot # [id number] Lot# Expiration Date Blood 04/08/2024 9:31 AM EDT us Virginie Lopez MD POINT OF CARE TEST EN TER/EDIT ORDERABLES Final Result * BI Mammogram Screening Tomosynthesis Bilateral (01/01/2024 8:00 AM EDT) Anatomical Region Laterality Modality Breast Bilateral Mammography 01/01/2024 8:00 AM EDT Narrative 01/29/2024 3:53 PM EDT ? [facility] ? [address] ?[place] [address] ? Mammography Report ? Signed ? Patient: Virginie Martins ?MR#: [id number] ?? 07 ? : 1965 ?Acct:[id number] ? Age/Sex: 58 / F ?ADM Date: 12/31/ ? Loc: HO.MAMMO ? Attending Dr: Virginie Lopez MD ? Ordering Physician: Virginie Monet MD ?Results: ?? 1Negative ? Date of Service: 12/31/ ?Follow Up: 1 Year From Orig ?? inal Mammogram ? Procedure(s): MM tomosynthesis screening BI ?? Accession Number(s): [id number] ? cc: Virginie Monet MD ? EXAMINATION: [...] 1549 ? DD/ 0800 ? TD/TT: ? Operational Intelligence Analyst: ? Procedure Note Gema, Image - 01/29/2024 [facility] [address] [place] [address] [place] [address] Mammography Report Signed Patient: Virginie Martins AMR#: [id number] 07 : 1965Acct:[id number] Age/Sex: 58 / FADM Date: 01/01/24 Loc: ANA MARIA Attending Dr: Virginie Lopez MD Ordering Physician: Virginie Monet MDResults: 1Negative Date of Service: 01/01/24Follow Up: 1 Year From Orig inal Mammogram Procedure(s): MM tomosynthesis screening BI Accession Number(s): [id number] cc: Virginie Monet MD EXAMINATION: MM SCREENING [...] in OV> 01/29/24 1549 DD/ 0800 TD/TT: Operational Intelligence Analyst: Virginie Lopez MD IM BI PROCEDURES Fin al Result * HPV mRNA E6/E7 (02/27/2018 3:34 PM EDT) HPV mRNA E6/E7 Not Detected NOT DETECTED [facility] Comment: This test was performed using the APTIMA(R) HPV Assay ([employer] This assay detects E6/E7 viral messenger RNA (mRNA) from 14 high-risk HPV types (16,18,31,33,35,39,45,51, 52,56,58,59,66,68). For additional information please refer to: http://education.Clicks for [employer]/faq/BFW077r9 (This link is being provided for informational/ educational purposes only.) The analytical performance characteristics of this assay have been determined by [employer] [place], [place]. The modifications have not been cleared or approved by the FDA. This assay has been validated pursuant to the CLIA regulations and is used for clinical purposes. Test Performed by [employer] [place], [facility], [address] [place] [address] Adriel Barclay M.D., Ph.D., Director of Laboratories , CLIA [id number] Please note: ??Effective 03/27/2016, HPV testing will be performed using [employer] APTIMA test which targets mRNA. Detecting mRNA instead of DNA, as in older methods, offers significant improvements in specificity. 02/27/2018 3:34 PM EDT Ela Kern CNM HISTORICAL/NON ORDERABLE LABS Final Result Performing Organization Address City/[facility]/ZIP Co de Phone Number [facility] [address] [place] [address] * Pap Smear (02/27/2018 12:00 AM EDT) Swab Ela Kern CNM LAB CYTOLOGY ORDERABLES F inal Result Performing Organization Address City/[facility]/ZIP Co de Phone Number [facility] [address] [place] [address] [phone] from Last 3 Months or Most Recently Relevant to Health Maintenance Insurance [facility] * Guarantor: Virginie Martins Account Type Relation to Patient Date of Phone Billing Address Personal/Family Self [address] Care Teams Binding Printer Relationship Specialty Start Date End Date Virginie Monet MD [address] [place] [phone] PCP - General Family Medicine 07/30/20
--- OUTSIDE RECORDS SUMMARY | 2024-08-26 09:35 | XMS_ITS | Encounter Summary ---
Author Organization [employer] Address [address] [place] [address] Care Team Providers Care Open Pit Quarry Supervisor Name Role Phone Virginie Monet MD Primary Care Provide r Encounter Details Date Type Department Care Team ([facility] Contact Info) Description 05/19/2024 Orders Only [facility] [address] [place], [place] [phone] Virginie Monet MD [address] [place], [place] [phone] Social History Tobacco Use Types Packs/Day Years [...] Description 09/09/2024 9:45 AM EST Office Visit [facility] [address] [place] [phone] 09/16/2024 10:45 AM EST Office Visit [address] [address] Virginie Monet MD [address] [place] [address] documented as of this encounter Visit Diagnoses Not on filedocumented in this encounter Additional Health Concerns Assessment Noted Time PHQ-9 Depression Total Score: 15 024 11:32 AM EDT documented as of this encounter Care Teams Open Pit Quarry Supervisor Relationship Specialty Start Date End Date Virginie Monet MD [address] [place] [phone] PCP - General Family Medicine 07/30/20 documented as of this encounter
--- OUTSIDE RECORDS SUMMARY | 2024-08-26 09:35 | XMS_ITS | Encounter Summary ---
Author Organization [employer] Address 75 [facility] 7t [place] [address] Care Team Providers Care Camouflage Specialist Name Role Phone Virginie Monet MD Primary Care Provide r Reason for Visit * Reason Onset Date Comments Appointment Request 07/28/2024 Encounter Details Date Type Department Care Team ([facility] Contact Info) Description 07/28/2024 Telephone [facility] MEDICINE [address] [place], [place] [phone] Virginie Monet MD 230 [place] [address] Appointment Request Social History Tobacco Use Types [...] Description 09/09/2024 9:45 AM EST Office Visit [facility] MEDICINE [address] [place] [address] 09/16/2024 10:45 AM EST Office Visit [facility] MEDICINE [address] [place] [address] Virginie Monet MD [address] [place] [address] documented as of this encounter Visit Diagnoses Not on filedocumented in this encounter Additional Health Concerns Assessment Noted Time PHQ-9 Depression Total Score: 15 024 11:32 AM EDT documented as of this encounter Care Teams Camouflage Specialist Relationship Specialty Start Date End Date Virginie Monet MD 230 [facility] [place] [address] PCP - General Family Medicine 07/30/20 documented as of this encounter
--- OUTSIDE RECORDS SUMMARY | 2024-08-26 09:35 | XMS_ITS | Encounter Summary ---
Author Organization [employer] Address 75 [facility] 7t [place] [address] Care Team Providers Care Concrete Panel Installer Name Role Phone Virginie Monet MD Primary Care Provide r Encounter Details Date Type Department Care Team ([facility] Contact Info) Description 08/01/2024 Orders Only [facility] External Provider, [facility] Social History Tobacco Use Types Packs/Day Years [...] Description 09/09/2024 9:45 AM EST Office Visit [address] [address] 09/16/2024 10:45 AM EST Office Visit [address] [address] Virginie Monet MD [address] [place] [address] documented as of this encounter Procedures Procedure Name Priority Date/Time Associated Diagnosis Comments MR KNEE WO CONTRAST LEFT Routine 08/02/2024 8:54 AM EST documented in this encounter Results * MR Knee w/o Contrast Left (08/02/2024 8:54 AM EST) Anatomical Region Laterality Modality Magnetic Resonan ce 08/02/2024 8:54 AM EST Narrative 08/02/2024 8:56 AM EST ? [facility] ?[address] ?[place] [address] ? Magnetic Resonance Report ? Signed ? Patient: Martins,Anastasia ?MR#: [id number] ?? 07 ? : 1965 ?Acct:[id number] ? Age/Sex: 58 / F ?ADM Date: 01/17/25 ? Loc: HO.MRI ? Attending Dr: Pete Varela MD ? Ordering Physician: Pete Varela MD ?? Date of Service: 08/01/24 ?? Procedure(s): MR knee LT wo con ?? Accession Number(s): [id number] ? cc: Virginie Monet MD; Pete Varela [...] ? DD/ 3 ? TD/TT: 08/02/24853 ? Assembling Inspector: ? Procedure Note Gema, Image - 08/02/2024 [place] [address] Magnetic Resonance Report Signed Patient: Virginie Martins AMR#: [id number] [birth year] : 1965Acct:[id number] Age/Sex: 58 / FADM Date: 08/01/24 Loc: HO.MRI Attending Dr: Pete Varela MD Ordering Physician: Pete Varela MD Date of Service: 08/01/24 Procedure(s): MR knee LT wo con Accession Number(s): [id number] cc: Virginie Monet MD; Pete Varela MD [...] in OV> 08/02/24 0855 DD/ TD/TT: 08/02/2454 Assembling Inspector: [facility] External Provider IMG MRI PROCEDURES Final Result documented in this encounter Visit Diagnoses Not on filedocumented in this encounter Additional Health Concerns Assessment Noted Time PHQ-9 Depression Total Score: 15 024 11:32 AM EDT documented as of this encounter Care Teams Concrete Panel Installer Relationship Specialty Start Date End Date Virginie Monet MD [address] [place] [address] PCP - General Family Medicine 07/30/20 documented as of this encounter
--- OUTSIDE RECORDS SUMMARY | 2024-08-26 09:35 | XMS_ITS | Encounter Summary ---
Author Organization [employer] Address [address] [facility] [address] 7t [place] [address] Care Team Providers Care Barber Tool Sharpener Name Role Phone Virginie Monet MD Primary Care Provide r Reason for Visit * Reason Onset Date Comments Med Refill 07/30/2024 Encounter Details Date Type Department Care Team ([facility] st Contact Info) Description 07/30/2024 Refill [facility] MEDICINE 230 [place], [place] [phone] Virginie Monet MD 230 [place] [address] Chronic bilateral low back pain without sciatica [...] the past 12 months, has t he [employer], gas, oil or water company threatened to [...] immediate release tablet To be sent to: [id number][id number] [place] - [facility] [place] documented in this encounter Plan of Treatment Upcoming Encounters Date Type Department Care Team (Late st Contact Info) Description 09/09/2024 9:45 AM EST Office Visit [facility] MEDICINE [address] [place] [address] 09/16/2024 10:45 AM EST Office Visit [facility] MEDICINE [address] [place] [address] Virgniie Monet MD 230 [place] [address] documented as of this encounter Visit Diagnoses Diagnosis Chronic bilateral low back pain without sciatica documented in this encounter Additional Health Concerns Assessment Noted Time PHQ-9 Depression Total Score: 15 024 11:32 AM EDT documented as of this encounter Care Teams Barber Tool Sharpener Relationship Specialty Start Date End Date Virginie Monet MD 230 [place] [address] PCP - General Family Medicine 07/30/20 documented as of this encounter
--- OUTSIDE RECORDS SUMMARY | 2024-08-26 09:35 | XMS_ITS | Encounter Summary ---
Author Organization [employer] Address [address] [facility] [address] 7t [place] [address] Care Team Providers Care Educational Therapist Name Role Phone Virginie Monet MD Primary Care Provide r Reason for Visit * Reason Comments Med Refill Encounter Details Date Type Department Care Team ([facility] st Contact Info) Description 08/05/2024 Refill [facility] MEDICINE 230 [place], [place] [phone] Virginie Monet MD 230 [place], [place] [phone] Michael's thyroiditis Social History Tobacco Use Types [...] Description 09/09/2024 9:45 AM EST Office Visit [facility] MEDICINE [address] [place] [address] 09/16/2024 10:45 AM EST Office Visit [facility] MEDICINE [address] [place] [address] Virginie Monet MD [address] [place] [address] documented as of this encounter Visit Diagnoses Diagnosis Michael's thyroiditis Chronic lymphocytic thyroiditis documented in this encounter Additional Health Concerns Assessment Noted Time PHQ-9 Depression Total Score: 15 024 11:32 AM EDT documented as of this encounter Care Teams Educational Therapist Relationship Specialty Start Date End Date Virginie Monet MD [address] [place] [address] PCP - General Family Medicine 07/30/20 documented as of this encounter
--- OUTSIDE RECORDS SUMMARY | 2024-08-26 09:35 | XMS_ITS | Encounter Summary ---
Author Organization [employer] Address 75 [facility] 7t [place] [address] Care Team Providers Care Emergency Medicine Specialist Name Role Phone Virginie Monet MD Primary Care Provide r Reason for Visit * Reason Onset Date Comments Appointment Request 02/05/2024 Encounter Details Date Type Department Care Team ([facility] Contact Info) Description 02/05/2024 Telephone [facility] MEDICINE 230 [place], [place] [phone] Virginie Monet MD 230 [place] [address] Appointment Request Social History Tobacco Use Types [...] Description 09/09/2024 9:45 AM EST Office Visit [facility] MEDICINE [address] [place] [address] 09/16/2024 10:45 AM EST Office Visit [facility] MEDICINE [address] [place] [address] Virginie Monet MD [address] [place] [address] documented as of this encounter Visit Diagnoses Not on filedocumented in this encounter Additional Health Concerns Assessment Noted Time PHQ-9 Depression Total Score: 15 024 11:32 AM EDT documented as of this encounter Care Teams Emergency Medicine Specialist Relationship Specialty Start Date End Date Virginie Monet MD 230 [place] [address] PCP - General Family Medicine 07/30/20 documented as of this encounter
--- OUTSIDE RECORDS SUMMARY | 2024-08-26 09:35 | XMS_ITS | Encounter Summary ---
Author Organization [employer] Address 75 [facility] 7t [place] [address] Care Team Providers Care Geophysical Drafter Name Role Phone Virginie Monet MD Primary [...] Description 09/09/2024 9:45 AM EST Office Visit [address] [address] 09/16/2024 10:45 AM EST Office Visit [address] [address] Virginie Monet MD [address] [place] [address] documented as of this encounter Visit Diagnoses Not on filedocumented in this encounter Additional Health Concerns Assessment Noted Time PHQ-9 Depression Total Score: 15 024 11:32 AM EDT documented as of this encounter Care Teams Geophysical Drafter Relationship Specialty Start Date End Date Virginie Monet MD [address] [place] [address] PCP - General Family Medicine 07/30/20 documented as of this encounter
--- OUTSIDE RECORDS SUMMARY | 2024-08-26 09:35 | XMS_ITS | Encounter Summary ---
Author Organization [employer] Address [address] [facility] [address] 7t [place] [address] Care Team Providers Care Ceramic Maker Demonstrator Name Role Phone Virginie Monet MD Primary Care Provide r Reason for Visit * Reason Onset Date Comments Nurse Triage 12/14/2023 Encounter Details Date Type Department Care Team ([facility] st Contact Info) Description 12/14/2023 Telephone [facility] MEDICINE 230 [place], [place] [phone] Virginie Monet MD 230 [place] [address] Nurse Triage Social History Tobacco Use Types [...] immediate release tablet To be sent to: [facility] documented in this encounter Plan of Treatment Upcoming Encounters Date Type Department Care Team (Late st Contact Info) Description 09/09/2024 9:45 AM EST Office Visit [facility] MEDICINE [address] [place] [address] 09/16/2024 10:45 AM EST Office Visit [facility] MEDICINE [address] [place] [address] Virginie Monet MD [address] [place] [address] documented as of this encounter Visit Diagnoses Diagnosis Chronic bilateral low back pain without sciatica documented in this encounter Additional Health Concerns Assessment Noted Time PHQ-9 Depression Total Score: 0 05/29/20 23 2:13 PM EST documented as of this encounter Care Teams Ceramic Maker Demonstrator Relationship Specialty Start Date End Date Virginie Monet MD 230 [place] [address] PCP - General Family Medicine 07/30/20 documented as of this encounter
--- OUTSIDE RECORDS SUMMARY | 2024-08-26 09:35 | XMS_ITS | Encounter Summary ---
Author Organization [employer] Address 75 [facility] 7t [place] [address] Care Team Providers Care Senior Sales Administrator Name Role Phone Virginie Monet MD Primary Care Provide r Reason for Visit * Reason Onset Date Comments Medication Question 05/19/2024 Encounter Details Date Type Department Care Team ([facility] Contact Info) Description 05/19/[address] [facility] MEDICINE 230 [place], [place] [phone] Virginie Monet MD 230 [place] [address] Medication Question Social History Tobacco Use Types [...] to be more specific. Please contact at [phone] documented in this encounter Plan of Treatment Upcoming Encounters Date Type Department Care Team (Late st Contact Info) Description 09/09/2024 9:45 AM EST Office Visit [facility] MEDICINE 230 [place] [address] 09/16/2024 10:45 AM EST Office Visit [facility] MEDICINE 230 [place] [address] Virginie Monet MD 230 [place] [address] documented as of this encounter Visit Diagnoses Not on filedocumented in this encounter Additional Health Concerns Assessment Noted Time PHQ-9 Depression Total Score: 15 024 11:32 AM EDT documented as of this encounter Care Teams Senior Sales Administrator Relationship Specialty Start Date End Date Virginie Monet MD 230 [place] [address] PCP - General Family Medicine 07/30/20 documented as of this encounter
--- OUTSIDE RECORDS SUMMARY | 2024-08-26 09:35 | XMS_ITS | Encounter Summary ---
Author Organization [employer] Address [address] [facility] [address] 7t [place] [address] Care Team Providers Care Bone Process Operator Name Role Phone Virginie Monet MD Primary Care Provide r Reason for Visit * Reason Comments Med Refill Encounter Details Date Type Department Care Team ([facility] st Contact Info) Description 01/03/2024 Refill [facility] MEDICINE 230 [place], [place] [phone] Virginie Monet MD 230 [place], [place] [phone] Anxiety Social History Tobacco Use Types Packs/Day [...] 09/09/2024 9:45 AM EST Office Visit [address] [address] 09/16/2024 10:45 AM EST Office Visit [address] [address] Virginie Monet MD [address] [place] [address] documented as of this encounter Visit Diagnoses Diagnosis Anxiety Anxiety state, unspecified documented in this encounter Additional Health Concerns Assessment Noted Time PHQ-9 Depression Total Score: 0 05/29/20 23 2:13 PM EST documented as of this encounter Care Teams Bone Process Operator Relationship Specialty Start Date End Date Virginie Monet MD [address] [place] [address] PCP - General Family Medicine 07/30/20 documented as of this encounter
--- OUTSIDE RECORDS SUMMARY | 2024-08-26 09:35 | XMS_ITS | Encounter Summary ---
Author Organization [employer] Address 75 [facility] 7t [place] [address] Care Team Providers Care Parimutuel Ticket Cashier Name Role Phone Virginie Monet MD Primary Care Provide r Reason for Visit * Reason Onset Date Comments Med Refill 02/05/2023 Encounter Details Date Type Department Care Team ([facility] st Contact Info) Description 02/05/2023 Telephone [facility] MEDICINE 230 [place], [place] [phone] Virginie Monet MD 230 [place] [address] Med Refill Social History Tobacco Use Types [...] Description 09/09/2024 9:45 AM EST Office Visit [facility] MEDICINE [address] [place] [address] 09/16/2024 10:45 AM EST Office Visit [address] [address] Virginie Monet MD [address] [place] [address] documented as of this encounter Visit Diagnoses Not on filedocumented in this encounter Additional Health Concerns Assessment Noted Time PHQ-9 Depression Total Score: 0 11/15/19 23 9:09 AM EDT documented as of this encounter Care Teams Parimutuel Ticket Cashier Relationship Specialty Start Date End Date Virginie Monet MD [address] [place] [address] PCP - General Family Medicine 07/30/20 documented as of this encounter
--- OUTSIDE RECORDS SUMMARY | 2024-08-26 09:35 | XMS_ITS | Encounter Summary ---
Author Organization [employer] Address 75 [facility] 7t [place] [address] Care Team Providers Care Video Editing Internship Name Role Phone Virginie Monet MD Primary Care Provide r Reason for Visit * Reason Onset Date Comments Referral 10/02/2022 Encounter Details Date Type Department Care Team ([facility] Contact Info) Description 10/02/2022 Telephone [facility] MEDICINE 230 [place], [place] [phone] Virginie Monet MD 230 [place] [address] Referral Social History Tobacco Use Types Packs/Day [...] 2:04 PM EDT Tc from Andreea Waller continuum of care manager requesting a referral for occupational therapy evaluation for pt to be able to get a shower chair and electric lift chair . Please call to clarify at phone # [phone]. documented in this encounter Plan of Treatment Upcoming Encounters Date Type Department Care Team (Late st Contact Info) Description 09/09/2024 9:45 AM EST Office Visit [address] [address] 09/16/2024 10:45 AM EST Office Visit [address] [address] Virginie Monet MD [address] [place] [address] documented as of this encounter Visit Diagnoses Not on filedocumented in this encounter Care Teams Video Editing Internship Relationship Specialty Start Date End Date Virginie Monet MD [address] [place] [address] PCP - General Family Medicine 07/30/20 documented as of this encounter
--- OUTSIDE RECORDS SUMMARY | 2024-08-26 09:35 | XMS_ITS | Encounter Summary ---
Author Organization [employer] Address [address] [facility] [address] 7t [place] [address] Care Team Providers Care Solid Waste Disposal Manager Name Role Phone Virginie Monet MD Primary Care Provide r Encounter Details Date Type Department Care Team ([facility] st Contact Info) Description 08/12/2024 9:45 AM EST Office Visit [facility] MEDICINE 230 [place] [address] Racheal Flynn, DESTINY [address] [place] [address] Fibromyalgia (Primary Dx); Long-term current use of [...] Topic: Functional Pain Goals - Following with [facility] for left knee pain and instability. Recently completed MRI and has follow up pending with Ortho team to review results and discuss management/plan Chronic Pain History: Associated Diagnosis: Fibromyalgia Current pharm tx: oxycodone 5mg [id number]; Xanax 0.5mg TID PRN Medication: States taking [...] oxycodone 5mg Q8H PRN Indication: fibromyalgia Last FISH GRADER Agreement: 01/09/24 Relevant Orders POCT [id number]-14 Urine Drug Screen (Completed) Follow up: 1-2 months for [facility]. Follow up as scheduled with PCP, sooner as needed * Krupa Gonzalez RN - 08/12/2024 9:45 AM EST .FISH GRADER pad assembler: PDMP reviewed today. Last fill date: 07/30/24 [...] Description 09/09/2024 9:45 AM EST Office Visit [address] [address] 09/16/2024 10:45 AM EST Office Visit [facility] 230 [place] [address] Virginie Monet MD 230 [place] [address] documented as of this encounter Procedures Procedure [...] - 08/12/2024 1:45 PM EST ..UTOX cup Lot#[id number] Exp. 04/09/26 Internal Pass Control Racheal Flynn FIRE DISPATCHER POINT OF CARE TEST ENTER/EDIT ORDERABLES Final Result documented in this encounter Visit Diagnoses Diagnosis Fibromyalgia- Primary Unspecified myalgia and myositis Long-term current use of opiate analgesic Encounter for long-term (current) use of other medications documented in this encounter Additional Health Concerns Assessment Noted Time PHQ-9 Depression Total Score: 15 024 11:32 AM EDT documented as of this encounter Care Teams Solid Waste Disposal Manager Relationship Specialty Start Date End Date Virginie Monet MD [address] [place] [address] PCP - General Family Medicine 07/30/20 documented as of this encounter
--- OUTSIDE RECORDS SUMMARY | 2024-08-26 09:35 | XMS_ITS | Encounter Summary ---
Author Organization [employer] Address [address] [facility] [address] 7t [place] [address] Care Team Providers Care Principal Associate Name Role Phone Virginie Monet MD Primary Care Provide r Reason for Visit * Reason Comments Med Refill Encounter Details Date Type Department Care Team ([facility] st Contact Info) Description 01/22/2024 Refill [facility] MEDICINE 230 [place], [place] [phone] Virginie Monet MD 230 [place], [place] [phone] Anxiety Social History Tobacco Use Types Packs/Day [...] Description 09/09/2024 9:45 AM EST Office Visit [facility] MEDICINE [address] [place] [address] 09/16/2024 10:45 AM EST Office Visit [address] [address] Virginie Monet MD [address] [place] [address] documented as of this encounter Visit Diagnoses Diagnosis Anxiety Anxiety state, unspecified documented in this encounter Additional Health Concerns Assessment Noted Time PHQ-9 Depression Total Score: 15 024 11:32 AM EDT documented as of this encounter Care Teams Principal Associate Relationship Specialty Start Date End Date Virginie Monet MD [address] [place] [address] PCP - General Family Medicine 07/30/20 documented as of this encounter
== END 2024-08-26 09:34 | disposition home or self-care (01) ==
PROVIDERS: PCP Internal Medicine; Visit Provider Nurse Practitioner Family
DX: I27.20 Pulmonary hypertension, unspecified (principal); J44.9 Chronic obstructive pulmonary disease, unspecified; F17.200 Nicotine dependence, unspecified, uncomplicated; R91.8 Other nonspecific abnormal finding of lung field; Z01.811 Encounter for preprocedural respiratory examination
CPT/HCPCS: 99214; G2211

== ENCOUNTER → 2024-08-26 08:53 | Outpatient (BNVA) | payer OTHER, SELFPAY | PROVIDERS: PCP Internal Medicine; Visit Provider Nurse Practitioner Family | DX: Z01.811 Encounter for preprocedural respiratory examination (principal); J44.89 Other specified chronic obstructive pulmonary disease; R91.8 Other nonspecific abnormal finding of lung field; I27.20 Pulmonary hypertension, unspecified; I10 Essential (primary) hypertension; F17.210 Nicotine dependence, cigarettes, uncomplicated | CPT/HCPCS: 99212 ==

== ENCOUNTER 2024-09-16 13:04 | Outpatient (AMB) | payer OTHER, SELFPAY ==
[2024-09-16 13:24] VITALS: BP 138/80; BMI 34.9
--- NOTE | 2024-09-16 13:24 | A.OFFVIS_ITS ---
Vital Signs 09/16/24 13:24 Height 5 ft 8 in Weight 229 lb 11.547 oz BMI 34.9 BP 138/80 Blood Pressure Location Lt brachial Position Sitting Intake Visit Reasons: left knee with Dr. Varela 09/22/24 clearance Gyroscope Repairer Required: No Accompanied by: Self / Same As Patient Allergies adhesive tape Allergy (Severe, Verified 08/26/24 09:10) BLISTERS Tetanus Vaccines and Toxoid [TETANUS VACCINES & TOXOID] Allergy (Intermediate, Verified 08/26/24 09:10) SWELLING, REDNESS surgical tape Allergy (Severe, Uncoded 08/26/24 09:10) hives/boils Medication List - Last Reconciled 09/16/24 by Maurilio Olsen NP acetaminophen (Tylenol Extra Strength) 500 mg PO Q6H PRN albuterol sulfate 90 mcg/actuation 2 puffs PO Q6H PRN 30 days albuterol sulfate 2.5 mg (3 mL) continuous nebulization QID PRN amitriptyline 75 mg PO BEDTIME aripiprazole 2 mg PO DAILY atorvastatin 40 mg PO DAILY CPAP (CPAP Machine/Device) As directed duloxetine 60 mg PO DAILY fbjinojitlt-aizfxfqnl-xabzsfyz 200-62.5-25 mcg (Trelegy Ellipta) 1 inh inhalation DAILY 30 days hydrochlorothiazide 12.5 mg PO DAILY ibuprofen 800 mg PO Q8H PRN isosorbide mononitrate ER 30 mg PO DAILY lancets (FreeStyle Lancets) Once a day levothyroxine 125 mcg PO DAILY 30 days naloxone 4 mg/actuation (Narcan) 4 mg intranasal Q2M PRN naproxen 500 mg PO BID PRN 10 days nebulizers As directed nebulizers As directed omeprazole 20 mg PO BID oxycodone 5 mg PO TID PRN ropinirole 3 mg PO BEDTIME semaglutide (Ozempic) 0.5 mg subcut QWEEK HPI Comments Details: This is a 58-year-old female patient with a medical history of hypertension, diabetes, COPD, pulmonary hypertension, tobacco use, and coronary artery disease. Patient is presenting today for a preoperative cardiovascular evaluation prior to an upcoming left knee arthroscopy with next week. The patient was previously seen in the office for shortness of breath but has been doing well since the pulmonary rehabilitation. Patient states she has been unable to continue the rehab for the past few months due to her left knee meniscal tear. The patient notes that she has been working on losing weight otherwise. Today, patient denies any exertional chest pain, shortness of breath, palpitations, dizziness, fatigue, orthopnea, PND, leg edema, presyncope, or syncope. Patient reports being compliant with her medications. [facility] Medical History Pulmonary hypertension Dyspnea Vitamin D deficiency Mixed irritable bowel syndrome Michael's thyroiditis Fibromyalgia Type 2 diabetes mellitus Obesity (BMI 30-39.9) Prediabetes Hypothyroidism BOY (obstructive sleep apnea) Hypertension Palpitations Tobacco dependence Pulmonary nodules Asthma-COPD overlap syndrome Surgical History History of excision of mass (09/28/21) Status post tendon repair History of esophagogastroduodenoscopy (EGD) H/O hand surgery Hx of colonoscopy Hx of lithotripsy Status post trigger finger release History of colon resection H/O excision of ganglion cyst H/O arthroscopy of right knee H/O wrist surgery H/O release of tendon Hx of cholecystectomy Family History Father Myocardial infarction Hypertension Diabetes CVD (cardiovascular disease) Mother Restless leg syndrome Diabetes Paternal Aunt Breast cancer Uterine cancer Social History Alcohol intake: former Patient Tobacco Use Status: Current everyday Tobacco user Cigarettes Per Day: 6 Years Smoked: 30 +/- Review of Systems Const Denies chills, Denies fatigue, Denies fever(s), Denies weight gain and Denies weight loss ENT Denies dizziness Card Denies chest pain, Denies leg edema, Denies lightheadedness, Denies palpitations, Denies dyspnea on exertion, Denies orthopnea and Denies other Resp Denies cough and Denies dyspnea on exertion GI Denies hematochezia and Denies change in stool character Musc Denies abnormal gait, Denies muscle weakness, Denies numbness, Denies radiating pain into limb and Denies tingling Neuro Denies abnormal gait, Denies dizziness, Denies numbness and Denies tingling Endo Denies fatigue and Denies palpitations Physical Exam Vital Signs: Last Vital Signs BP 138/80 09/16/24 13:24 BMI result Body Mass Index 34.9 Const General: cooperative, healthy appearing, comfortable and no acute distress Orientation/consciousness: patient oriented x3 HEENT Head: Yes normal to inspection Neck Neck: Yes normal visual inspection, Yes trachea midline and Yes supple Chest Chest palpation & inspection: normal inspection of the chest Resp Effort & Inspection: normal respiratory effort Auscultation: clear to auscultation bilaterally, no crackles, no rales, no rhonchi and no wheezes Cardio Jugular venous distension: no JVD Palpation: normal PMI Rate: regular rate Rhythm: regular rhythm Heart sounds: S1 normal heart sound present, S2 normal heart sound present, no click, no gallops, no murmurs and no rubs Peripheral pulses: Peripheral pulses 2+ throughout GI Inspection: Yes normal to inspection Palpation (GI): Soft to palpation Auscultation: normal bowel sounds Skin General skin exam: no rashes or lesions noted Neuro General: patient oriented x3 Extrem General: Yes normal to inspection, No no pedal edema and No calf tenderness Psych Appearance: grossly normal Mental Status: mental status grossly normal Speech and movement: Normal speech and movement present Office Procedures EKG Details: EKG today showed normal sinus rhythm with occasional PVCs, rate 88 beats per minute, nonspecific ST-T wave abnormality, [place], [place]. [id number], Complete Quality Reporting (2019) Adult ([facility] 138/09/06/68) Smoking risk assessment performed?: Yes Patient Tobacco Use Status: Current everyday Tobacco user Assessment & Plan Assessment & Plan (1) Pulmonary hypertension: Code(s): I27.20 - Pulmonary hypertension, unspecified Category: Medical Plan: 09/10/2023-patient underwent stress ECHO where during the exercise portion patient requested to stop the test in 3 minutes achieving 92% MPHR with moderate to severe shortness of breath and hypotensive response to exercise. Echo portion short exercise related elevation of the pulmonary pressures. In the past for shortness of breath she was on Lasix but was DC then continued on hydrochlorothiazide due to electrolyte issues. Clinically euvolemic today and patient denies any shortness of breath. (2) Coronary artery disease: Code(s): I25.10 - Atherosclerotic heart disease of [place] coronary artery without angina pectoris Category: Medical Plan: 07/03/2023- patient underwent coronary CTA that showed less than 50% calcifications in the LAD and circumflex. Last LDL 79, not at goal. Continue statin therapy. We will repeat labs. Ideally LDL goal less than 70. (3) Hypertension: Code(s): I10 - Essential (primary) hypertension Category: Medical Plan: Blood pressure today is well-controlled. No med changes at this time. Patient is on Imdur for migraine headaches that was switched from nitroglycerin previously. Advised the patient to continue monitoring blood pressures at home. Ideally blood pressure goal less than 130/84. (4) Type 2 diabetes mellitus: Code(s): E11.9 - Type 2 diabetes mellitus without complications Category: Medical Qualifiers: Diabetes mellitus complication status: without complication Diabetes mellitus long term care social worker insulin use: without senior living use Qualified Code(s): E11.9 - Type 2 diabetes mellitus without complications Plan: Continue aggressive diabetes management. No recent A1c, ideally A1c goal less than 7.0. (5) Pre-operative cardiovascular examination: Code(s): Z01.810 - Encounter for preprocedural cardiovascular examination Plan: EKG today shows normal sinus rhythm. At this time, patient can proceed with her left knee surgery with the consideration that patient is at low cardiac risk complications. Follow-up in the office. In the interim, patient will call us with any concerns or change in symptoms. This note was generated using voice recognition software. While every effort has been made to ensure accuracy and proper ambulance driver paramedic, there may be occasional errors that could affect the content or meaning of the described symptoms. Orders: Orders AMB EKG-In Office Today Z01.810 - Encounter for preprocedural cardiovascular examination Lipid Panel Today I25.10 - Atherosclerotic heart disease of [place] coronary artery without angina pectoris Coding Level of Care Code Est Pt Level 4 (53043) Complex EM visit Add On G2211 Diagnoses Pulmonary hypertension I27.20 Coronary artery disease I25.10 Hypertension I10 Type 2 diabetes mellitus without complication, without long-term current use of insulin E11.9 Diabetes mellitus complication status: without complication Diabetes mellitus senior living insulin use: without senior living use Pre-operative cardiovascular examination Z01.810 CPT Codes EKG - CPT: 85449-[id number], Complete ([id number]) Time Spent (min) 34 Comment Time spent in reviewing the chart, test results, assessment, counseling and documentation.
--- OUTSIDE RECORDS SUMMARY | 2024-09-16 16:19 | XMS_ITS | Encounter Summary ---
Author Organization [employer] Address [address] [facility] 7t [place] [address] Care Team Providers Care System Architect Name Role Phone Virginie Monet MD Primary Care Provide r Encounter Details Date Type Department Care Team (Latest Contact Info) Description 09/16/2024 Travel Social History Tobacco Use Types Packs/Day [...] Date Recorded Patient Health Questionnaire-9 Score 0 09/16/2024 Patient Health Questionnaire-9 Score 0 09/16/2024 Last PHQ-9: Questionnaire Data Not on file 0 09/16/2024 Housing Stability Answer Date Recorded What is [...] Date Recorded Patient Health Questionnaire-2 Score 0 09/16/2024 Comments No Sex and Gender Information Value Date Recorded Sex Assigned at Female 05/15/2022 10:18 AM EDT Legal Sex Female 10:18 AM EDT Gender Identity Female 05/15/2022 10:18 AM EDT Sexual Orientation Choose not to disclose 2021 10:18 AM EDT documented as of this encounter Plan of Treatment Upcoming Encounters Date Type Department Care Team (Late st Contact Info) Description 11/04/2024 9:45 AM EDT Office Visit [facility] [address] [place] [address] documented as of this encounter Visit Diagnoses Not on filedocumented in this encounter Additional Health Concerns Assessment Noted Time PHQ-9 Depression Total Score: 0 09/17/19 25 10:52 AM EST documented as of this encounter Care Teams System Architect Relationship Specialty Start Date End Date Virginie Monet MD [address] [place] [address] PCP - General Family Medicine 07/30/20 documented as of this encounter
--- OUTSIDE RECORDS SUMMARY | 2024-09-16 16:19 | XMS_ITS | Encounter Summary ---
Author Organization [employer] Address [address] [facility] 7t [place] [address] Care Team Providers Care Unit Supervisor Name Role Phone Virginie Monet MD Primary Care Provide r Reason for Visit * Reason Onset Date Comments Referral 10/02/2022 Encounter Details Date Type Department Care Team ([facility] Contact Info) Description 10/02/2022 Telephone [facility] [address] [place], [place] [phone] Virginie Monet MD [address] [place] [address] Referral Social History Tobacco Use Types Packs/Day [...] 2:04 PM EDT Tc from Andreea Waller critical care nurse specialist requesting a referral for occupational therapy evaluation for pt to be able to get a shower chair and electric lift chair . Please call to clarify at phone # [phone]. documented in this encounter Plan of Treatment Upcoming Encounters Date Type Department Care Team (Late st Contact Info) Description 11/04/2024 9:45 AM EDT Office Visit [facility] [address] [place] [address] documented as of this encounter Visit Diagnoses Not on filedocumented in this encounter Care Teams Unit Supervisor Relationship Specialty Start Date End Date Virginie Monet MD [address] [place] [address] PCP - General Family Medicine 07/30/20 documented as of this encounter
--- OUTSIDE RECORDS SUMMARY | 2024-09-16 16:19 | XMS_ITS | Data Portability ---
Author Organization [employer] Address [address] [place] [phone] Care Team Providers Care Dry Starch Supervisor Name Role Phone HIM CCA OTHER SHANKAR [...] Not Available Not Available No t Available [employer] Ultra Test strips USE DIRECTED TWICE DAILY [...] active Not Available Not Available Not Available [email or web address] COVID-19 Rapid At-Home kit TEST DIRECTED TODAY [...] SNOMED-CT Code Diagnosis ICD10 Code Diagnosis Note [id number] Bryce Rivera MD Main - [facility] [address] [place] [phone] 03/04/2024 20:21:06 03/04/2024 22:03:09 Headache [id number] R51.9 Reports a history of migraines, but [...] Wills Member ID Guarantor Name 03/04/2024 1 [facility] - DOS ON OR AFTER 2022 - DUAL ELIGIBLE - LONG-TERM OPTIONS AND ONE CARE (MEDICARE REPLACEMENT/ADV ANTAGE - HMO) Shankar Martins [id number] Shankar Martins Notes Date Note Type Note Provider Name and Address Organization Details Recorded Time 03/04/2024 text/html CRC Nurse Triage Notes (Racheal Pabon): Reason For Request: Pt reporting severe headache for 3 weeks>suffers from migraines and has taken medication with no improvements>162/90 BP Chief Complaints: Headache PMH: Hypertension, Other Allergies: No Known Pain Assessment: Level 10 out of 10 Comments: Engineering Lab Technician verified the member's name//address and phone [...] ................... ................... ................... ................... ................... ................... ........ Software Validation Engineer Note From Ho Joe: Dispatched to the [...] agreed to go by ambulance. 911 contacted [facility] on scene and [facility] took patient care. all times are approx.report completed by sarah joe ................... ................... ................... ................... ................... ................... ................... ........ Disposition: Fulfilled Bryce Rivera MD [address] [place] [address],[address], [place], [phone], [employer] 03/04/2024 21:30:34 OBGyn Episode No OBEpisode recorded.
--- OUTSIDE RECORDS SUMMARY | 2024-09-16 16:19 | XMS_ITS | Encounter Summary ---
Author Organization [employer] Address [address] [facility] 7t [place] [address] Care Team Providers Care Chain Repairer Name Role Phone Virginie Monet MD Primary Care Provide r Encounter Details Date Type Department Care Team (Late Contact Info) Description 08/23/2022 Orders Only [facility] [address] [place] [phone] Yolanda Rose DO [address] [place] [address] Social History Tobacco Use Types Packs/Day Years [...] Description 11/04/2024 9:45 AM EDT Office Visit [facility] [address] [place] [address] [phone] documented as of this encounter Visit Diagnoses Not on filedocumented in this encounter Care Teams Chain Repairer Relationship Specialty Start Date End Date Virginie Monet MD [address] [place] [address] [phone] PCP - General Family Medicine 07/30/20 documented as of this encounter
--- OUTSIDE RECORDS SUMMARY | 2024-09-16 16:19 | XMS_ITS | Encounter Summary ---
Author Organization [employer] Address [address] [facility] [address] 7[address] [place] [address] Care Team Providers Care Inventory Control Clerk Name Role Phone Virginie Monet MD Primary Care Provide r Encounter Details Date Type Department Care Team ([facility] Contact Info) Description 10/12/2023 Orders Only [facility] [address] [place], [place] [phone] Virginie Monet MD [address] [place] [address] Social History Tobacco Use Types Packs/Day Years [...] Description 11/04/2024 9:45 AM EDT Office Visit [facility] [address] [place] [address] documented as of this encounter Visit Diagnoses Not on filedocumented in this encounter Additional Health Concerns Assessment Noted Time PHQ-9 Depression Total Score: 0 05/29/20 23 2:13 PM EST documented as of this encounter Care Teams Inventory Control Clerk Relationship Specialty Start Date End Date Virginie Monet MD [address] [place] [address] PCP - General Family Medicine 07/30/20 documented as of this encounter
--- OUTSIDE RECORDS SUMMARY | 2024-09-16 16:19 | XMS_ITS | Encounter Summary ---
Author Organization [employer] Address [address] [facility] [facility] [address] 7[address] [place] [address] Care Team Providers Care Brick Layer Name Role Phone Virginie Monet MD Primary Care Provide r Reason for Visit * Reason Comments Med Refill Encounter Details Date Type Department Care Team ([facility] st Contact Info) Description 01/22/2024 Refill [facility] [address] [place], [place] [phone] Virginie Monet MD [address] [place], [place] [phone] Anxiety Social History Tobacco Use Types Packs/Day [...] Description 11/04/2024 9:45 AM EDT Office Visit [facility] [address] [place] [address] documented as of this encounter Visit Diagnoses Diagnosis Anxiety Anxiety state, unspecified documented in this encounter Additional Health Concerns Assessment Noted Time PHQ-9 Depression Total Score: 15 024 11:32 AM EDT documented as of this encounter Care Teams Brick Layer Relationship Specialty Start Date End Date Virginie Monet MD [address] [place] [address] PCP - General Family Medicine 07/30/20 documented as of this encounter
--- OUTSIDE RECORDS SUMMARY | 2024-09-16 16:19 | XMS_ITS | Encounter Summary ---
Author Organization [employer] Address [address] [facility] 7t [place] [address] Care Team Providers Care Control Specialist Name Role Phone Virginie Monet MD Primary Care Provide r Reason for Visit * Reason Onset Date Comments Med Refill 08/27/2024 Encounter Details Date Type Department Care Team ([facility] st Contact Info) Description 08/27/2024 Refill [facility] [address] [place], [place] [phone] Virginie Monet MD [address] [place] [address] Chronic bilateral low back pain without sciatica [...] encounter Miscellaneous Notes * Telephone Encounter - Albertina Sutton - 08/27/2024 8:14 AM EST TC from pt requesting medication refill. Medications needing refill : oxyCODONE (Roxicodone) 5 MG immediate release tablet To be sent to: [id number] - [facility] – [place], [place] - [address] [facility] documented in this encounter Plan of Treatment Upcoming Encounters Date Type Department Care Team (Late st Contact Info) Description 11/04/2024 9:45 AM EDT Office Visit [facility] [address] [place], [place] [phone] documented as of this encounter Visit Diagnoses Diagnosis Chronic bilateral low back pain without sciatica documented in this encounter Additional Health Concerns Assessment Noted Time PHQ-9 Depression Total Score: 15 024 11:32 AM EDT documented as of this encounter Care Teams Control Specialist Relationship Specialty Start Date End Date Virginie Monet MD [address] [place] [address] PCP - General Family Medicine 07/30/20 documented as of this encounter
--- OUTSIDE RECORDS SUMMARY | 2024-09-16 16:19 | XMS_ITS | Encounter Summary ---
Author Organization [employer] Address [address] [facility] [address] [place] [address] Care Team Providers Care Deck Mechanic Name Role Phone Virginie Monet MD Primary Care Provide r Reason for Visit * Reason Comments Med Refill Encounter Details Date Type Department Care Team (Late st Contact Info) Description 08/26/2024 Refill [facility] [address] [place], [place] [phone] Virginie Monet MD [address] [place] [address] Prediabetes Social History Tobacco Use Types Packs/Day Years [...] Description 11/04/2024 9:45 AM EDT Office Visit [facility] [address] [place] [address] documented as of this encounter Visit Diagnoses Diagnosis Prediabetes Other abnormal glucose documented in this encounter Additional Health Concerns Assessment Noted Time PHQ-9 Depression Total Score: 15 024 11:32 AM EDT documented as of this encounter Care Teams Deck Mechanic Relationship Specialty Start Date End Date Virginie Monet MD [address] [place] [address] PCP - General Family Medicine 07/30/20 documented as of this encounter
--- OUTSIDE RECORDS SUMMARY | 2024-09-16 16:19 | XMS_ITS | Encounter Summary ---
Author Organization [employer] Address [address] [facility] [address] [address] [place] [address] Care Team Providers Care Casing Blower Name Role Phone Virginie Monet MD Primary Care Provide r Reason for Visit * Reason Onset Date Comments Nurse Triage 12/14/2023 Encounter Details Date Type Department Care Team ([facility] st Contact Info) Description 12/14/2023 Telephone [facility] [address] [place], [place] [phone] Virginie Monet MD [address] [place] [address] Nurse Triage Social History Tobacco Use Types [...] immediate release tablet To be sent to: [facility] documented in this encounter Plan of Treatment Upcoming Encounters Date Type Department Care Team (Late st Contact Info) Description 11/04/2024 9:45 AM EDT Office Visit [facility] [address] [place] [address] documented as of this encounter Visit Diagnoses Diagnosis Chronic bilateral low back pain without sciatica documented in this encounter Additional Health Concerns Assessment Noted Time PHQ-9 Depression Total Score: 0 05/29/20 23 2:13 PM EST documented as of this encounter Care Teams Casing Blower Relationship Specialty Start Date End Date Virginie Monet MD [address] [place] [address] PCP - General Family Medicine 07/30/20 documented as of this encounter
--- OUTSIDE RECORDS SUMMARY | 2024-09-16 16:19 | XMS_ITS | Encounter Summary ---
Author Organization [employer] Address [address] [facility] [address] 7[address] [place] [address] Care Team Providers Care German Instructor Name Role Phone Virginie Monet MD Primary Care Provide r Encounter Details Date Type Department Care Team ([facility] Contact Info) Description 10/31/2023 Telephone [facility] [address] [place], [place] [phone] Virginie Monet MD [address] [place] [address] Social History Tobacco Use Types Packs/Day Years [...] 10/31/2023 11:32 AM EDT Faxed referral for DATA PROCESSING SPECIALIST services for Ry today, per patient request. documented in this encounter Plan of Treatment Upcoming Encounters Date Type Department Care Team (Late st Contact Info) Description 11/04/2024 9:45 AM EDT Office Visit [facility] [address] [place] [address] documented as of this encounter Visit Diagnoses Not on filedocumented in this encounter Additional Health Concerns Assessment Noted Time PHQ-9 Depression Total Score: 0 05/29/20 23 2:13 PM EST documented as of this encounter Care Teams German Instructor Relationship Specialty Start Date End Date Virginie Monet MD [address] [place] [address] PCP - General Family Medicine 07/30/20 documented as of this encounter
--- OUTSIDE RECORDS SUMMARY | 2024-09-16 16:19 | XMS_ITS | Encounter Summary ---
Author Organization [employer] Address [address] [place] [address] Care Team Providers Care Business Services Specialist Sales Name Role Phone Virginie Monet MD Primary Care Provide r Encounter Details Date Type Department Care Team ([facility] Contact Info) Description 05/19/2024 Orders Only [facility] [address] [place], [place] [phone] Virginie Monet MD [address] [place], [place] [phone] Social History Tobacco Use Types Packs/Day Years [...] Visit [facility] [address] [place] [address] documented as of this encounter Visit Diagnoses Not on filedocumented in this encounter Additional Health Concerns Assessment Noted Time PHQ-9 Depression Total Score: 15 024 11:32 AM EDT documented as of this encounter Care Teams Business Services Specialist Sales Relationship Specialty Start Date End Date Virginie Monet MD [address] [place] [address] PCP - General Family Medicine 07/30/20 documented as of this encounter
--- OUTSIDE RECORDS SUMMARY | 2024-09-16 16:19 | XMS_ITS | Encounter Summary ---
Author Organization [employer] Address [address] [facility] 7[address] [place] [address] Care Team Providers Care Hand Ii Cutter Name Role Phone Virginie Monet MD Primary Care Provide r Reason for Visit * Reason Onset Date Comments Appointment Request 02/05/2024 Encounter Details Date Type Department Care Team ([facility] Contact Info) Description 02/05/2024 Telephone [facility] [address] [place], [place] [phone] Virginie Monet MD [address] [place] [address] Appointment Request Social History Tobacco Use Types [...] Description 11/04/2024 9:45 AM EDT Office Visit [facility] [address] [place] [address] documented as of this encounter Visit Diagnoses Not on filedocumented in this encounter Additional Health Concerns Assessment Noted Time PHQ-9 Depression Total Score: 15 024 11:32 AM EDT documented as of this encounter Care Teams Hand Ii Cutter Relationship Specialty Start Date End Date Virginie Monet MD [address] [place] [address] PCP - General Family Medicine 07/30/20 documented as of this encounter
--- OUTSIDE RECORDS SUMMARY | 2024-09-16 16:19 | XMS_ITS | Encounter Summary ---
Author Organization [employer] Address [address] [place] [address] 7 [place] [address] Care Team Providers Care Darklight Inspector Name Role Phone Virginie Monet MD Primary Care Provide r Reason for Referral * Medications - Closed Specialty Diagnoses / Procedures Referred By Dimas green Referred To Contact Diagnoses Type 2 diabetes mellitus with hyperglycemia, with long-term current use of insulin ([facility]) Virginie Monet MD [address] [place] [phone] Phone: tel: fax: Referral ID Status Reason Start Date Expiration Date Visits Re quested Visits Authorized [id number] Closed 1 1 * Medications - Closed Specialty Diagnoses / Procedures Referred By Dimas green Referred To Contact Diagnoses Type 2 diabetes mellitus with hyperglycemia, with long-term current use of insulin ([facility]) Virginie Monet MD [address] [place] [address] Phone: tel: fax: Referral ID Status Reason Start Date Expiration Date Visits Re quested Visits Authorized [id number] Closed 1 1 Reason for Visit * Reason Comments Follow-up Encounter Details Date Type Department Care Team ([facility] st Contact Info) Description 09/16/2024 10:45 AM EST Office Visit [facility] [address] [place] [phone] Virginie Monet MD [address] [place] [address] Essential hypertension (Primary Dx); Type 2 diabetes mellitus without complication, without long-term current use of insulin (CMS/HCC); Type 2 diabetes mellitus with hyperglycemia, with long-term current use of insulin (CMS/HCC); Tear of meniscus of left knee as current injury, unspecified meniscus, unspecified tear type, initial encounter Social History Tobacco Use Types Packs/Day Years [...] AM EDT documented as of this encounter Last Filed Vital Signs Vital Sign Reading Time Taken Comments Blood Pressure 142/69 09/16/2024 10:51 AM EST Pulse 74 09/16/2024 10:51 AM EST Temperature 36 ??C (96.8 ??F) 09/16/2024 10:51 AM EST Respiratory Rate 20 09/16/2024 10:51 AM EST Oxygen Saturation 98% 09/16/2024 10:51 AM EST Inhaled Oxygen Concentration - - Weight 105 kg (230 lb 12.8 oz) 09/16/2024 10:51 AM EST Height 172.7 cm (5' 8 ) 09/16/2024 10:51 AM EST Body Mass Index 35.09 09/16/2024 10:51 AM EST documented in this encounter Progress Notes * Virginie Lopez MD - 09/16/2024 10:45 AM EST SUBJECTIVE: Virginie Martins is a 58 y.o. year old female who presents for Chronic Disease Management . Acute Concerns: Patient reports her glucose is all over the place and sometimes is high in the mornings in the 200s Patient also reports pain of her left knee due to tear meniscal injury, she is not scheduled for surgery on September 22 of this year Social History Social History Narrative Not on file Patient Active Problem List Diagnosis Hepatitis A Asthma-chronic obstructive pulmonary disease overlap syndrome (CMS/HCC) Blurring of visual image Fibromyalgia Depression, recurrent (CMS/HCC) Dyslipidemia Essential hypertension Foot pain Gastroesophageal reflux disease Michael's thyroiditis Hiatal hernia Irritable bowel syndrome Kidney stone Menopausal syndrome Migraine without aura, not refractory Migraine without status migrainosus, not intractable Mild intermittent asthma Multiple nodules of lung Obesity Palpitations Peptic ulcer Peripheral venous insufficiency Positive REUBEN (antinuclear antibody) Restless legs Sebaceous cyst Skin tag Type 2 diabetes mellitus with hyperglycemia, without long-term current use of insulin (CMS/HCC) Polycythemia Acquired hypothyroidism Chronic bilateral low back pain without sciatica Vaginal itching Constipation Venous insufficiency Tobacco dependence Class 2 severe obesity due to excess calories with serious comorbidity in adult (CMS/HCC) Colon cancer screening Pain in both hands Diverticular disease Epigastric hernia Incisional hernia Osteoarthritis Anxiety Acute pain of left knee Bursitis of left knee Diet is high in sugar Dizzy Abnormal stress ECG with treadmill Acute hyperglycemia Bilateral foot pain Coronary artery disease RIVER (dyspnea on exertion) Lymphedema Mass of left lower extremity Long-term current use of opiate analgesic BOY (obstructive sleep apnea) Pulmonary hypertension ([facility]) Right shoulder pain Spondylosis of lumbar region without myelopathy or radiculopathy Status post trigger finger release Tremor of both hands Type 2 diabetes mellitus with hyperglycemia, with long-term current use of insulin ([facility]) Vitamin D deficiency Tear of meniscus of left knee as current injury No family history on file. Review of Systems Constitutional: Negative. HENT: Negative. Respiratory: Negative. Cardiovascular: Negative. Musculoskeletal: Positive for arthralgias and myalgias. OBJECTIVE: Vitals: 09/16/24 1051 BP: (!) 142/69 BP Location: Left arm Patient Position: Sitting BP Cuff Size: Large adult Pulse: 74 Resp: 20 Temp: 96.8 ??F (36 ??C) TempSrc: Temporal SpO2: 98% Weight: 230 lb 12.8 oz (105 kg) Height: 5' 8 (1.727 m) Physical Exam Constitutional: Appearance: Normal appearance. Cardiovascular: Rate and Rhythm: Normal rate and regular rhythm. Pulmonary: Effort: Pulmonary effort is normal. Breath sounds: Normal breath sounds. Abdominal: General: Abdomen is flat. Palpations: Abdomen is soft. Musculoskeletal: Right lower leg: No edema. Left lower leg: No edema. Neurological: Mental Status: She is alert. Follow Up: Follow up in about 3 months (around 12/17/2024) for chronic conditions . Current Outpatient Medications on File Prior to Visit Medication Sig Dispense Refill albuterol (2.5 MG/3ML) 0.083% nebulizer solution Take 3 mL (2.5 mg) by nebulization every 6 (six) hours if needed for wheezing or shortness of breath. 75 mL 1 albuterol 108 (90 Base) MCG/ACT inhaler Inhale 2 puffs every 4 (four) hours. ALPRAZolam (Xanax) 0.5 MG tablet TAKE 1 TABLET BY MOUTH NEEDED EVERY MORNING, EVERY AFTERNOON, AND EVERY NIGHT AT BEDTIME FOR UP TO 15 DAYS 45 tablet 0 amitriptyline (Elavil) 75 MG tablet TAKE 1 TABLET(75 MG) BY MOUTH AT BEDTIME 90 tablet 0 ARIPiprazole (Abilify) 2 MG tablet TAKE 1 TABLET(2 MG) BY MOUTH IN THE MORNING 30 tablet 1 Aspirin Low Dose 81 MG EC tablet Take 81 mg by mouth in the morning. atorvastatin (Lipitor) 40 MG tablet Take 1 tablet by mouth at bedtime. B Complex Vitamins (RA B-Complex with B-12) tablet Take 1 tablet by mouth in the morning. Blood Glucose Monitoring Suppl (ONE TOUCH ULTRA 2) w/Device kit Use to monitor blood glucose twice daily 1 kit 0 Blood Pressure Monitor kit Use as directed 3x/week 1 kit 0 Blood Pressure Monitoring (Blood Pressure Cuff) misc 1 each Once daily. 1 each 0 Continuous Blood Gluc Cloth Printer (FreeStyle Shane 2 [place]) device Use reader for CGM per package directions 1 each 0 Continuous Blood Gluc Sensor (Dexcom G7 Sensor) misc 1 each 3 times daily. 1 each 0 Continuous Blood Gluc Sensor (FreeStyle Shane 2 Sensor) misc Use 1 sensor every 14 days per packagedirections 2 each 0 diclofenac (Voltaren) 50 MG EC tablet Take 1 tablet by mouth in the morning and at bedtime. DULoxetine (Cymbalta) [address] capsule TAKE 1 CAPSULE(60 MG) BY MOUTH IN THE MORNING 90 capsule 0 Flovent HFA 220 MCG/ACT inhaler Inhale 1 puff 2 times daily. fluticasone (Flonase Allergy Relief) 50 MCG/ACT nasal spray Administer 1-2 sprays into affected nostril(s) in the morning. glycerin (Adult) 2 g suppository Insert 1 suppository (2 g) into the rectum if needed each day for constipation. 90 suppository 3 ibuprofen 800 MG tablet TAKE 1 TABLET(800 MG) BY MOUTH EVERY 8 HOURS WITH FOOD NEEDED FOR MODERATE PAIN OR MILD PAIN 30 tablet 1 insulin lispro (HumaLOG Jacob KwikPen) 100 UNIT/ML injection Check blood sugar before 1 meal ( breakfast or lunch) if sugar >250-299 administer 3 units, if 300-349, administer 6 units, if >350administer 9 units and call office. 1 each 0 insulin lispro (HumaLOG KWIKPEN) 100 UNIT/ML injection ADMINISTER ONCE A DAY WITH 1 MEAL, 3U FOR BLOOD SUGAR BETWEEN 250-299, 6U FOR BLOOD SUGAR 300-349,FOR BLOOD SUGAR>400 INJECT 9U AND CALL CLINIC 3 mL 1 isosorbide mononitrate ER (Imdur) 30 MG 24 hr tablet Take 30 mg by mouth Once per day. lactulose (Chronulac) 10 GM/15ML solution Take 15 mL by mouth in the morning and 15 mL at noon and 15 mL in the evening and 15 mL before bedtime. For constipation.. Lancets (OneTouch Delica Plus [id number]) misc USE DIRECTED TWICE DAILY 100 each 11 levothyroxine (Synthroid, Levoxyl) 125 MCG tablet TAKE 1 TABLET(125 MCG) BY MOUTH DAILY BEFORE BREAKFAST 30 tablet 3 Lidocaine 4 % patch 1 patch by Other route if needed each day. Apply to L upper tibia daily prn daily loperamide (Imodium A-D) 2 MG tablet Take 2 tablets by mouth. Take 2 tablets by oral route after 1st loose stool and 1 tablet (2mg) after each next bowel movement; do not exceed 16 mg in 24 hours losartan-hydroCHLOROthiazide (Hyzaar) 50-12.5 MG tablet TAKE 1 TABLET BY MOUTH DAILY 30 tablet 2 meloxicam (Mobic) 15 MG tablet Take 15 mg by mouth in the morning. metFORMIN (Glucophage) 500 MG tablet TAKE 1 TABLET BY MOUTH TWICE DAILY WITH THE MORNING AND EVENING MEAL 180 tablet 1 mineral oil enema Insert 1 enema into the rectum if needed in the morning and at bedtime for constipation. 266 mL 2 Narcan 4 MG/0.1ML nasal spray CALL 911. SPR CONTENTS OF ONE SPRAYER (0.1ML) INTO ONE NOSTRIL. REPEAT IN 2-3 MIN IF SYMPTOMS OF OPIOID EMERGENCY PERSIST, ALTERNATE NOSTRILS nicotine (Nicoderm CQ) 21 MG/24HR patch Place 1 patch on the skin 1 (one) time each day at the sametime. 30 patch 0 nicotine (Nicotrol) 10 MG inhaler Inhale 1 puff in the morning. Inhale (1 UNITS) by inhalation route 6 times every day as needed for smoking cravings. 168 each 1 omeprazole (PriLOSEC) [address] capsule TAKE 1 CAPSULE BY MOUTH IN THE MORNING AND AT BEDTIME 180 capsule 1 ondansetron (Zofran) 4 MG tablet Take 1 tablet by mouth in the morning and at bedtime. Take 2 tablet by oral route 2 times every day ondansetron ODT (Zofran-ODT) 4 MG disintegrating tablet DISSOLVE 1 TABLET ON THE TONGUE EVERY 6 HOURS OneTouch Ultra Test test strip USE DIRECTED TWICE DAILY 100 strip 11 oxyCODONE (Roxicodone) 5 MG immediate release tablet Take 1 tablet (5 mg) by mouth every 8 (eight) hours if needed for severe pain for up to 28 days. 84 tablet 0 pen needle 31G x 5 mm misc Use as instructed 100 each 12 polyethylene glycol, PEG, 3350 (Glycolax) 17 GM/SCOOP powder MIX 17 GRAMS(1 CAPFUL) INTO 8 TO 12 OUNCES OF FLUID LIKE WATER AND DRINK BY MOUTH EVERY NIGHT AT BEDTIME NEEDED CONSTIPATION 510 g 1 primidone (Mysoline) 50 MG tablet Take 50 mg by mouth 2 times daily. rOPINIRole (Requip) 3 MG tablet Take 3 mg by mouth in the morning. rOPINIRole (Requip) 4 MG tablet Take 1 tablet by mouth at bedtime. Sodium Fluoride 5000 Plus 1.1 % cream BRUSH TEETH EVERY MORNING AND AT BEDTIME DIRECTED SUMAtriptan (Imitrex) 20 MG/ACT nasal spray Administer 1 spray into affected nostril(s) See administration instructions. Dunlap 1 spray by intranasal route once; if headache returns, dose may be repeated once and after 2 hours, do not exceed 40 mg per day. SUMAtriptan (Tosymra) 10 MG/ACT nasal spray Inhale 10 mg. tiZANidine (Zanaflex) 6 MG capsule Take 1 capsule by mouth every 6 (six) hours. Take 1 capsule by oral route every 6-8 hours as needed not to exceed 3 doses in 24 hours. Trelegy Ellipta 200-62.5-25 MCG/ACT aerosol powder INHALE 1 PUFF BY MOUTH DAILY Umeclidinium-Vilanterol (Anoro Ellipta) 62.5-25 MCG/ACT aerosol powder Inhale 1 puff in the morning. Inhale 1 puff by inhalation route every day at the same time each day. [DISCONTINUED] semaglutide (Ozempic) 2 MG/1.5ML solution pen-injector Inject 0.5 mg under the skin 1 (one) time per week. 1 each 12 No current facility-administered medications on file prior to visit. Problem List Items Addressed This Visit Type 2 diabetes mellitus with hyperglycemia, with long-term current use of insulin ([facility]) Diabetes is: not controlled - Lab Results Component Value Date HGBA1C 7.7 (A) 09/16/2024 HGBA1C 7.4 (A) 04/08/2024 HGBA1C 8.2 (A) 12/31/2023 - Lab Results Component Value Date MICROALBUR 16.0 04/22/2024 CREATININE 1.06 05/15/2024 -Changes: I will go up on Ozempic to 1 mg weekly, I will prescribe for patient CGM - Diabetic eye exam: Up-to-date - Diabetic foot exam: Pending - Continue lifestyle modifications - Continue current medications - Follow up: 3 months Relevant Medications semaglutide (Ozempic) 2 MG/1.5ML solution pen-injector Continuous Glucose Cloth Printer (VLN PartnersStyle Shane 3 [place]) device Continuous Glucose Sensor (FreeStyle Shane 3 Plus Sensor) misc glucose blood (FreeStyle Precision Ravin Test) test strip Other Relevant Orders POCT Glucose (Completed) POCT HGB A1C (Completed) Essential hypertension - Primary I advised: - Aerobic exercise to reduce BP. Initial goal of 30 min walk 3-5x/week. Increase as tolerated. - low-sodium diet (goal: <2g/day) and heart healthy diet such as DASH to reduce BP and prevent ASCVD. - Home BP monitoring 1-2 x day with goal of <140/90. - Seek immediate medical attention for chest pain, palpitations, SOB, syncope, or sudden changes inmental status. - Do not change or discontinue current prescriptions without first consulting health care provider Tear of meniscus of left knee as current injury Patient schedule for surgery on 09/22/24 documented in this encounter Miscellaneous Notes * Assessment & Plan Note - Virginie Lopez MD - 09/16/2024 12:30 PM EST Associated Problem(s): Type 2 diabetes mellitus with hyperglycemia, with long- term current use of insulin ([facility]) Diabetes is: not controlled - Lab Results Component Value Date HGBA1C 7.7 (A) 09/16/2024 HGBA1C 7.4 (A) 04/08/2024 HGBA1C 8.2 (A) 12/31/2023 - Lab Results Component Value Date MICROALBUR 16.0 04/22/2024 CREATININE 1.06 05/15/2024 -Changes: I will go up on Ozempic to 1 mg weekly, I will prescribe for patient CGM - Diabetic eye exam: Up-to-date - Diabetic foot exam: Pending - Continue lifestyle modifications - Continue current medications - Follow up: 3 months * Assessment & Plan Note - Virginie Lopez MD - 09/16/2024 12:28 PM EST Associated Problem(s): Essential hypertension I advised: - Aerobic exercise to reduce BP. Initial goal of 30 min walk 3-5x/week. Increase as tolerated. - low-sodium diet (goal: <2g/day) and heart healthy diet such as DASH to reduce BP and prevent ASCVD. - Home BP monitoring 1-2 x day with goal of <140/90. - Seek immediate medical attention for chest pain, palpitations, SOB, syncope, or sudden changes inmental status. - Do not change or discontinue current prescriptions without first consulting health care provider * Assessment & Plan Note - Virginie Lopez MD - 09/16/2024 11:07 AM EST Associated Problem(s): Tear of meniscus of left knee as current injury Patient schedule for surgery on 09/22/24 documented in this encounter Plan of Treatment Upcoming Encounters Date Type Department Care Team (Late st Contact Info) Description 11/04/2024 9:45 AM EDT Office Visit [facility] [address] [place] [address] documented as of this encounter Procedures Procedure Name Priority Date/Time Associated Diagnosis Comments POCT GLYCATED HEMOGLOBIN, TOTAL Routine 09/16/2024 10:52 AM EST Type 2 diabetes mellitus without complication, without long-term current use of insulin ([facility]) Type 2 diabetes mellitus with hyperglycemia, with long-term current use of insulin ([facility]) POCT GLUCOSE Routine 09/16/2024 10:52 AM EST Type 2 diabetes mellitus without complication, without long-term current use of insulin ([facility]) Type 2 diabetes mellitus with hyperglycemia, with long-term current use of insulin ([facility]) documented in this encounter Results * (ABNORMAL) POCT HGB A1C (09/16/2024 10:52 AM EST) Hemoglobin A1C 7.7(A) 4.0 - 6.0 % QC Media Lot # [id number] Lot# Expiration Date Blood 09/16/2024 10:5 2 AM EST us Virginie Lopez MD POINT OF CARE TEST EN TER/EDIT ORDERABLES Final Result * POCT Glucose (09/16/2024 10:52 AM EST) Glucose Blood, POC [id number] 60 - 200 mg/dL QC Media Lot # [id number] Lot# Expiration Date Blood Capillary blood specimen / Unknown 09/16/2024 10:52 AM EST Virginie Lopez MD POINT OF CARE TEST EN TER/EDIT ORDERABLES Final Result documented in this encounter Visit Diagnoses Diagnosis Essential hypertension- Primary Unspecified essential hypertension Type 2 diabetes mellitus without complication, without long-term current use of insulin ([facility]) Type 2 diabetes mellitus with hyperglycemia, with long-term current use of insulin ([facility]) Tear of meniscus of left knee as current injury, unspecified meniscus, unspecified tear type, initial encounter documented in this encounter Additional Health Concerns Assessment Noted Time PHQ-9 Depression Total Score: 0 09/17/19 25 10:52 AM EST documented as of this encounter Care Teams Darklight Inspector Relationship Specialty Start Date End Date Virginie Monet MD [address] [place] [address] PCP - General Family Medicine 07/30/20 documented as of this encounter
--- OUTSIDE RECORDS SUMMARY | 2024-09-16 16:19 | XMS_ITS | Encounter Summary ---
Author Organization [employer] Address [address] [place] [address] Care Team Providers Care Financial Coach Name Role Phone Virginie Monet MD Primary Care Provide r Reason for Visit * Reason Comments Med Refill Encounter Details Date Type Department Care Team ([facility] st Contact Info) Description 01/03/2024 Refill [facility] [address] [place], [place] [phone] Virginie Monet MD [address] [place], [place] [phone] Anxiety Social History Tobacco Use Types Packs/Day [...] Description 11/04/2024 9:45 AM EDT Office Visit [facility] [address] [place] [address] documented as of this encounter Visit Diagnoses Diagnosis Anxiety Anxiety state, unspecified documented in this encounter Additional Health Concerns Assessment Noted Time PHQ-9 Depression Total Score: 0 05/29/20 23 2:13 PM EST documented as of this encounter Care Teams Financial Coach Relationship Specialty Start Date End Date Virginie Monet MD [address] [place] [address] PCP - General Family Medicine 07/30/20 documented as of this encounter
--- OUTSIDE RECORDS SUMMARY | 2024-09-16 16:19 | XMS_ITS | Encounter Summary ---
Author Organization [email or web address] Address [address] [place] [address] Care Team Providers Care Radiation Therapy Technologist Name Role Phone Virginie Monet MD Primary Care Provide r Reason for Visit * Reason Onset Date Comments VIBRATOR EQUIPMENT TESTER Tier 09/09/2024 Encounter Details Date Type Department Care Team ([facility] Contact Info) Description 09/09/2024 Telephone [facility] [address] [place] [address] Racheal Flynn FNP [address] [place] [address] VIBRATOR EQUIPMENT TESTER Tier Social History Tobacco Use Types Packs/Day Years [...] encounter Miscellaneous Notes * Telephone Encounter - DESTINY Bnaegas - 09/09/2024 2:43 PM EST Hi Virginie Shah MD, Virginie Martins is participating in group visits, and we are writing to see what Tier Level you would like for her to be assigned (see below). Thanks! VIBRATOR EQUIPMENT TESTER Information: Medication: oxycodone 5mg Q8H PRN Indication: fibromyalgia Last VIBRATOR EQUIPMENT TESTER Agreement: 01/09/24 Timeline: 01/09/24: utox/pill count as expected 03/11/24: utox/pill count as expected 05/27/24: utox/pill count as expected 08/12/24: utox/pill count as expected 09/09/24: utox/pill count as expected Tier Level Visit Frequency Tier 1 - High Risk Monthly Tier 2 - Moderate Risk Every 3 months Tier 3 - Low Risk Every 4-6 months documented in this encounter Plan of Treatment Upcoming Encounters Date Type Department Care Team ([facility] st Contact Info) Description 11/04/2024 9:45 AM EDT Office Visit [facility] [address] [place] [phone] documented as of this encounter Visit Diagnoses Diagnosis Long-term current use of opiate analgesic- Primary Encounter for long-term (current) use of other medications documented in this encounter Additional Health Concerns Assessment Noted Time PHQ-9 Depression Total Score: 15 024 11:32 AM EDT documented as of this encounter Care Teams Radiation Therapy Technologist Relationship Specialty Start Date End Date Virginie Monet MD [address] [place] [address] PCP - General Family Medicine 07/30/20 documented as of this encounter
--- OUTSIDE RECORDS SUMMARY | 2024-09-16 16:19 | XMS_ITS | Encounter Summary ---
Author Organization [employer] Address [address] [facility] [address] [facility] [address] [place] [address] Care Team Providers Care Laborer Hoisting Name Role Phone Virginie Monet MD Primary Care Provide r Reason for Visit * Reason Onset Date Comments Med Refill 02/05/2023 Encounter Details Date Type Department Care Team ([facility] st Contact Info) Description 02/05/2023 Telephone [facility] MEDICINE [address] [place], [place] [phone] Virginie Monet MD [address] [place] [address] Med Refill Social History Tobacco Use Types [...] Description 11/04/2024 9:45 AM EDT Office Visit [facility] MEDICINE [address] [place] [address] documented as of this encounter Visit Diagnoses Not on filedocumented in this encounter Additional Health Concerns Assessment Noted Time PHQ-9 Depression Total Score: 0 11/15/19 23 9:09 AM EDT documented as of this encounter Care Teams Laborer Hoisting Relationship Specialty Start Date End Date Virginie Monet MD [address] [place] [address] PCP - General Family Medicine 07/30/20 documented as of this encounter
--- OUTSIDE RECORDS SUMMARY | 2024-09-16 16:19 | XMS_ITS | Encounter Summary ---
Author Organization [employer] Address [address] [place] [address] Care Team Providers Care Chief Engineer Name Role Phone Virginie Monet MD Primary Care Provide r Encounter Details Date Type Department Care Team (Latest Contact Info) Description 09/09/2024 Travel Social History Tobacco Use Types Packs/Day [...] Description 11/04/2024 9:45 AM EDT Office Visit [facility] MEDICINE [address] [place] [address] documented as of this encounter Visit Diagnoses Not on filedocumented in this encounter Additional Health Concerns Assessment Noted Time PHQ-9 Depression Total Score: 15 024 11:32 AM EDT documented as of this encounter Care Teams Chief Engineer Relationship Specialty Start Date End Date Virginie Monet MD [address] [place] [address] PCP - General Family Medicine 07/30/20 documented as of this encounter
--- OUTSIDE RECORDS SUMMARY | 2024-09-16 16:19 | XMS_ITS | Encounter Summary ---
Author Organization [email or web address] Address [address] [place] [address] Care Team Providers Care Steam Pan Sponger Name Role Phone Virginie Monet MD Primary Care Provide r Reason for Visit * Reason Comments Med Refill Encounter Details Date Type Department Care Team ([facility] st Contact Info) Description 08/29/2024 Refill [facility] MEDICINE [address] [place], [place] [phone] Virginie Monet MD [address] [place], [place] [phone] Depression, unspecified depression type Social History Tobacco [...] [facility] MEDICINE [address] [place] [address] documented as of this encounter Visit Diagnoses Diagnosis Depression, unspecified depression type documented in this encounter Additional Health Concerns Assessment Noted Time PHQ-9 Depression Total Score: 15 024 11:32 AM EDT documented as of this encounter Care Teams Steam Pan Sponger Relationship Specialty Start Date End Date Virginie Monet MD [address] [place] [address] PCP - General Family Medicine 07/30/20 documented as of this encounter
--- OUTSIDE RECORDS SUMMARY | 2024-09-16 16:19 | XMS_ITS | Encounter Summary ---
Author Organization [employer] Address [address] [place] [address] Care Team Providers Care Regulatory Analyst Name Role Phone Virginie Monet MD Primary Care Provide r Encounter Details Date Type Department Care Team ([facility] st Contact Info) Description 09/09/2024 9:45 AM EST Office Visit [facility] MEDICINE [address] [place] [address] Racheal Flynn FNP [address] [place] [address] Fibromyalgia (Primary Dx); Long-term current use of opiate analgesic; Acute meniscal tear of left knee, subsequent encounter Social History Tobacco Use Types Packs/Day [...] your housing situation today? I have kamini eaosn 04/30/[address] you li [...] the past 12 months, has t he [employer], [employer], oil or water [employer] threatened to shut off services in your [...] this encounter Progress Notes * Racheal Flynn, SHEET PILE HAMMER OPERATOR - 09/09/2024 9:45 AM EST Subjective: Virginie Martins is a 58 y.o. female w/ PMH hypothyroidism, anxiety asthma, depression, HTN, fibromyalgia, chronic low back pain, DM2, GERD, IBS who presents to the office for - Chronic Pain Clinic Group visits. Initial Group visit: 09/11/23 Last PCP visit: 04/08/2024, Dr Shah Group Confidentiality signed: 09/11/23 Group Topic: Bong/Isiah - Following with [facility] Ortho for left knee pain and instability. Completed MRI left knee w/o contraston 08/01/24: Posterior horn medial meniscal tear with joint effusion. She reports planned for upcoming surgery. Chronic Pain History: Associated Diagnosis: Fibromyalgia Current pharm tx: oxycodone 5mg [id number]; Xanax 0.5mg TID PRN Medication: States taking medication as prescribed. Related Specialists: Ortho Functional Goals: improvement of left knee pain and mobility Imaging: MRI left knee Jul 2024 IMPRESSION: Posterior horn medial meniscal tear with joint effusion. Other substance use: Tobacco: every day, 1/4 pack Marijuana: never Alcohol: never Illicit substances: denies Review of Systems Constitutional: Negative. Respiratory: Negative. Cardiovascular: Negative. Musculoskeletal: Positive for arthralgias Skin: Negative. Physical Exam Constitutional: Appearance: Normal appearance. Pulmonary: Effort: Pulmonary effort is normal. Neurological: Mental Status: She is alert and oriented to person, place, and time. Psychiatric: Mood and Affect: Mood normal. Behavior: Behavior normal. Problem List Items Addressed This Visit Musculoskeletal Fibromyalgia - Primary Current Assessment & Plan - Pt attended and participated in group model of care - urine tox and pill count as expected - continue to explore and use non-pharmacological modalities for chronic pain treatment Other Long-term current use of opiate analgesic Overview Medication: oxycodone 5mg Q8H PRN Indication: fibromyalgia Last TELEPHONE MAINTENANCE MECHANIC Agreement: 01/09/24 Current Assessment & Plan Timeline: - 09/09/24: Group visit, utox/pill count wnl Relevant Orders POCT AIMEE-14 Urine Drug Screen (Completed) Other Visit Diagnoses Acute meniscal tear of left knee, subsequent encounter -Continue following with [facility] Ortho with upcoming plan for surgical intervention Follow up: 1-2 months for Group Chronic [facility]. Follow up as scheduled with PCP, sooner as needed * Benita Mahmood RN - 09/09/2024 9:45 AM EST TELEPHONE MAINTENANCE MECHANIC glass mechanic: PDMP reviewed today. Last fill date: 08/28/24 Oxycodone count was 53, anticipated 47 to be remaining. UTOX completed. Positive for OXY, TCA & THC, Negative for AMP, BAR, BUP, BZO, CLARI, FTY, MDMA, MET, MOP, MTD, PCP. UTOX as expected. documented in this encounter Miscellaneous Notes * Assessment & Plan Note - DESTINY Banegas - 09/09/2024 2:42 PM ESTAssociated Problem(s): Long-term current use of opiate analgesic Timeline: - 09/09/24: Group visit, utox/pill count wnl * Assessment & Plan Note - DESTINY Banegas - 09/09/2024 2:40 PM ESTAssociated Problem(s): Fibromyalgia - Pt attended and participated in group model of care - urine tox and pill count as expected - continue to explore and use non-pharmacological modalities for chronic pain treatment documented in this encounter Plan of Treatment Upcoming Encounters Date Type Department Care Team (Late st Contact Info) Description 11/04/2024 9:45 AM EDT Office Visit [facility] MEDICINE [address] [place] [address] documented as of this encounter Procedures Procedure Name Priority Date/Time Associated Diagnosis Comments POCT AIMEE-14 URINE DRUG SCREEN Routine 09/09/2024 1:39 PM EST Long-term current use of opiate analgesic documented in this encounter Results * POCT AIMEE-14 Urine Drug Screen (09/09/2024 1:39 PM EST) THC Positive TCA, Urine Positive Oxycodone Screen, Urine Positive Urine Urine specimen obtained by clean catch procedure / Unknown 09/09/2024 1:39 PM EST Benita Wakefield RN - 09/09/2024 1:39 PM EST UTOX cup Lot#[id number] Exp. 03/04/26 Internal Pass Control us Racheal DIXON POINT OF CARE TEST ENTER/EDIT ORDERABLES Final Result documented in this encounter Visit Diagnoses Diagnosis Fibromyalgia- Primary Unspecified myalgia and myositis Long-term current use of opiate analgesic Encounter for long-term (current) use of other medications Acute meniscal tear of left knee, subsequent encounter documented in this encounter Additional Health Concerns Assessment Noted Time PHQ-9 Depression Total Score: 15 024 11:32 AM EDT documented as of this encounter Care Teams Regulatory Analyst Relationship Specialty Start Date End Date Virginie Monet MD [address] [place] [address] PCP - General Family Medicine 07/30/20 documented as of this encounter
--- OUTSIDE RECORDS SUMMARY | 2024-09-16 16:20 | XMS_ITS | Encounter Summary ---
Author Organization [employer] Address [address] [place] [address] Care Team Providers Care Sales Coach Name Role Phone Virginie Monet MD Primary Care Provide r Reason for Visit * Reason Onset Date Comments Appointment Request 06/25/2023 Encounter Details Date Type Department Care Team ([facility] Contact Info) Description 06/25/2023 Telephone [facility] MEDICINE [address] [place], [place] [phone] Virginie Monet MD [address] [place] [address] Appointment Request Social History Tobacco Use Types [...] call back to r/s appt on 06/25 development writer did cancel appt per patient request documented in this encounter Plan of Treatment Upcoming Encounters Date Type Department Care Team (Late st Contact Info) Description 11/04/2024 9:45 AM EDT Office Visit [facility] MEDICINE [address] [place] [address] documented as of this encounter Visit Diagnoses Not on filedocumented in this encounter Additional Health Concerns Assessment Noted Time PHQ-9 Depression Total Score: 0 05/29/20 23 2:13 PM EST documented as of this encounter Care Teams Sales Coach Relationship Specialty Start Date End Date Virginie Monet MD [address] [place] [address] PCP - General Family Medicine 07/30/20 documented as of this encounter
--- OUTSIDE RECORDS SUMMARY | 2024-09-16 16:20 | XMS_ITS | Encounter Summary ---
Author Organization [employer] Address [address] [facility] [address] [place] [address] Care Team Providers Care Automatic Pad Making Machine Operator Name Role Phone Virginie Monet MD Primary Care Provide r Reason for Visit * Reason Onset Date Comments Med Refill 06/04/2024 Encounter Details Date Type Department Care Team ([facility] Contact Info) Description 06/04/2024 Telephone [facility] MEDICINE [address] [place], [place] [phone] Virginie Monet MD [address] [place] [address] Med Refill Social History Tobacco Use Types [...] immediate release tablet To be sent to: [id number] - [place], [place] - [address] [facility] documented in this encounter Plan of Treatment Upcoming Encounters Date Type Department Care Team (Late st Contact Info) Description 11/04/2024 9:45 AM EDT Office Visit [facility] MEDICINE [address] [place] [address] documented as of this encounter Visit Diagnoses Not on filedocumented in this encounter Additional Health Concerns Assessment Noted Time PHQ-9 Depression Total Score: 15 024 11:32 AM EDT documented as of this encounter Care Teams Automatic Pad Making Machine Operator Relationship Specialty Start Date End Date Virginie Monet MD [address] [place] [address] PCP - General Family Medicine 07/30/20 documented as of this encounter
--- OUTSIDE RECORDS SUMMARY | 2024-09-16 16:20 | XMS_ITS | Clinical Summary ---
Author Organization [employer] Address [address] [facility] [address] [place] [address] Care Team Providers Care Metal Wire Coating Operator Name Role Phone Virginie Monet MD [...] spray into affected nostril(s) See administration instructions. [place] 1 spray by intranasal route once; if [...] complication, without long-term current use of insulin ([facility]) Use 1 sensor every 14 days per package directions 2 each 2022 Active Continuous Blood Gluc Recreation Professor (FreeStyle Shane 2 [place]) deviceIndication s:Type 2 diabetes mellitus without complication, without long-term current use of insulin ([facility]) Use reader for CGM per package [...] as directed 3x/week 1 kit 2022 Active primidone (Mysoline) 50 MG tablet [...] each Once daily. 1 each 2023 Active Sodium Fluoride 5000 Plus 1.1 % cream BRUSH TEETH EVERY MORNING AND AT BEDTIME DIRECTED 2023 Active Lancets (PrysmTouch Delica Plus [id number]) miscIndications: Type 2 diabetes mellitus with hyperglycemia, without long-term current use of insulin ([facility]) USE DIRECTED TWICE DAILY 100 each 11 2023 Active OneTouch Ultra Test test stripIndications :Type 2 diabetes mellitus with hyperglycemia, without long-term current use of insulin ([facility]) USE DIRECTED TWICE DAILY 100 strip [...] hyperglycemia, without long-term current use of insulin ([facility]) Check blood sugar before 1 meal ( breakfast or lunch) if sugar >250-299 administer 3 units, if 300-349, administer 6 units, if >350 administer 9 units and call office. 1 each 2023 Active pen needle 31G x 5 mm miscIndications: Type 2 diabetes mellitus with hyperglycemia, without long-term current use of insulin ([facility]) Use as instructed 100 each 12 05/16 Active omeprazole (PriLOSEC) [address] capsule TAKE 1 CAPSULE BY MOUTH IN THE MORNING AND AT BEDTIME 180 capsule 1 2023 Active insulin lispro (HumaLOG KWIKPEN) 100 UNIT/ML injectionIndicat ions:Type 2 diabetes mellitus with hyperglycemia, without long-term current use of insulin ([facility]) ADMINISTER ONCE A DAY WITH 1 MEAL, 3U FOR BLOOD SUGAR BETWEEN 250-299, 6U FOR BLOOD SUGAR 300-349,FOR BLOOD SUGAR>400 INJECT 9U AND CALL CLINIC 3 mL 1 2024 Active DULoxetine (Cymbalta) [address] capsuleIndicatio ns:Depression, unspecified depression type TAKE 1 CAPSULE(60 MG) BY MOUTH IN THE MORNING 90 capsule 2024 Active losartan-hydroCH LOROthiazide (Hyzaar) 50-12.5 MG tabletIndication s:Essential hypertension TAKE 1 TABLET BY MOUTH DAILY 30 tablet 2 2024 Active levothyroxine (Synthroid, Levoxyl) 125 MCG tabletIndication s:Michael's thyroiditis TAKE 1 TABLET(125 MCG) BY MOUTH DAILY BEFORE BREAKFAST 30 tablet 3 2024 Active metFORMIN (Glucophage) 500 MG tabletIndication s:Prediabetes TAKE 1 TABLET BY MOUTH TWICE DAILY WITH THE MORNING AND EVENING MEAL 180 tablet 1 2024 Active oxyCODONE (Roxicodone) 5 MG immediate release tabletIndication s:Chronic bilateral low back pain without sciatica Take 1 tablet (5 mg) by mouth every 8 (eight) hours if needed for severe pain for up to 28 days. 84 tablet 09/24 Active ARIPiprazole (Abilify) 2 MG tabletIndication s:Depression, unspecified depression type TAKE 1 TABLET(2 MG) BY MOUTH IN THE MORNING 30 tablet 1 2024 Active semaglutide (Ozempic) 2 MG/1.5ML solution pen-injectorIndi cations:Type 2 diabetes mellitus with hyperglycemia, with long-term current use of insulin ([facility]) Inject 1 mg under the skin 1 (one) time per week. 2 each 3 2024 Active Continuous Glucose Recreation Professor (FreeStyle Shane 3 [place]) deviceIndication s:Type 2 diabetes mellitus with hyperglycemia, with long-term current use of insulin (CMS/[facility]) 1 each Once per day. Use as directed for CGM 1 each 2024 Active Continuous Glucose Sensor (FreeStyle Shane 3 Plus Sensor) miscIndications: Type 2 diabetes mellitus with hyperglycemia, with long-term current use of insulin (CMS/[facility]) 1 each every 15 days. Apply 1 every 15 days as directed for CGM 2 each 2024 Active glucose blood (FreeStyle Precision Arvin Test) test stripIndications :Type 2 diabetes mellitus with hyperglycemia, with long-term current use of insulin ([facility]) Use to test blood sugar 2 times daily in case of CGM failure or extremes of BG 100 each 09/16 Active metFORMIN (Glucophage) 500 MG tabletIndication s:Prediabetes TAKE 1 TABLET BY MOUTH TWICE DAILY WITH THE MORNING AND EVENING MEAL 180 tablet 1 08/27 Discontinued semaglutide (Ozempic) 2 MG/1.5ML solution pen-injectorIndi cations:Type 2 diabetes mellitus with hyperglycemia, without long-term current use of insulin ([facility]) Inject 0.5 mg under the skin 1 (one) time per week. 1 each 12 09/16 Discontinued ARIPiprazole (Abilify) 2 MG tabletIndication s:Depression, unspecified depression type TAKE 1 TABLET(2 MG) BY MOUTH IN THE MORNING 30 tablet 1 08/29 Discontinued oxyCODONE (Roxicodone) 5 MG immediate release tabletIndication s:Chronic bilateral low back pain without sciatica Take 1 tablet (5 mg) by mouth every 8 (eight) hours if needed for severe pain for up to 28 days. 84 tablet 08/27 Discontinued( Reorder (will not trigger notification to Pharmacy)) Active Problems Problem Noted Date Diagnosed Date Tear of meniscus of left knee as current injury 09/16/2024 Assessment & Plan (09/16/2024 11:07 AM EST): Patient schedule for surgery on 09/22/24 Abnormal stress ECG with treadmill 05/27/2024 Acute hyperglycemia 05/27/2024 Bilateral foot pain 05/27/2024 Coronary artery disease 05/27/2024 IRVER (dyspnea on exertion) 05/27/2024 Lymphedema 05/27/2024 Mass of left lower extremity 05/27/2024 Long-term current use of opiate analgesic 2023 Overview (09/16/2024): Medication: oxycodone 5mg Q8H PRN Indication: fibromyalgia Last [facility]ATER [facility]AXI [employer]IVER Agreement: 01/09/24 Tier II (WATER TAXI DRIVER visits every 3 months) - last eval 09/16/24 by PCP Assessment & Plan (09/09/2024 2:42 PM EST): Timeline: - 09/09/24: Group visit, utox/pill count wnl BOY (obstructive sleep apnea) 05/27/2024 Overview (05/27/2024): very mild Pulmonary hypertension 05/27/2024 Right shoulder pain 05/27/2024 Spondylosis of lumbar region without myelopathy or radiculopathy 05/27/2024 Status post trigger finger release 05/27/2024 Overview (05/27/2024): 10/14/2021 Tremor of both hands 05/27/2024 Type 2 diabetes mellitus wit h hyperglycemia, with long-term current use of insulin 05/27/2024 Assessment & Plan (09/16/2024 12:30 PM EST): Diabetes is: not controlled - Lab Results [...] current medications - Follow up: 3 months Vitamin D deficiency 05/27/2024 Acute pain of [...] AM EDT): Dr Radha Schulz (psychiatrist) phone [phone], is now taking over of her mental health and will take over her medications for mental health Diverticular disease 09/11/2023 Epigastric hernia 09/11/2023 Incisional hernia 09/11/2023 Osteoarthritis 09/11/2023 Assessment & Plan (10/11/2023 11:50 AM EDT): C/w PRN meds Patient will go to medical records for guidance for new [facility] services Pain in both hands 08/27/2023 Assessment & Plan (10/11/2023 11:51 AM EDT): As above Class 2 severe obesity due t o excess calories with serious comorbidity in adult 05/29/2023 Assessment & Plan (05/16/2024 10:23 AM EDT): Discussed re weight reduction options including exercise, life style modifications, diet and referral to billing collections specialist. Recommended to decrease soda and sugary [...] Assessment & Plan (10/11/2023 11:52 AM EDT): [facility] services will be requested Assessment & Plan [...] 06/17/2022 Essential hypertension 06/17/2022 Assessment & Plan (09/16/2024 12:28 PM EST): I advised: - Aerobic exercise to reduce [...] consulting health care provider Assessment & Plan (05/16/2024 5:13 PM EDT): [...] A 07/02/2019 Fibromyalgia 05/02/2019 Assessment & Plan (09/09/2024 2:40 PM EST): - Pt attended and participated in group model of care - urine tox and pill count as expected - continue to explore and use non-pharmacological modalities for chronic pain treatment Assessment & Plan (08/12/2024 2:36 PM EST): [...] pill count as expected Pt prefers individual W[facility]AXI [employer]IVER appointments, will schedule with Benita Mahmood RN [...] Encounters Date Type Department Care Team Description 09/16/2024 10:45 AM EST Office Visit [facility] [address] [place] [address] Virginie Monet MD Essential hypertension (Primary Dx); Type 2 diabetes mellitus without complication, without long-term current use of insulin ([facility]); Type 2 diabetes mellitus with hyperglycemia, with long-term current use of insulin ([facility]); Tear of meniscus of left knee as current injury, unspecified meniscus, unspecified tear type, initial encounter 09/16/2024 Travel 09/09/2024 9:45 AM EST Office Visit [facility] [address] [place] [address] Racheal Flynn FNP Fibromyalgia (Primary Dx); Long-term current use of opiate analgesic; Acute meniscal tear of left knee, subsequent encounter 09/09/2024 Telephone [facility] [address] [place] [address] Racheal Flynn FNP [facility] [facility] [employer] Tier 09/09/2024 Travel 08/29/2024 Refill [facility] [address] [place] [address] Virginie Monet MD Depression, unspecified depression type 08/27/2024 Refill [facility] [address] [place] [address] Virginie Monet MD Chronic bilateral low back pain without sciatica 08/26/2024 Refill [facility] [address] [place] [address] Virginie Monet MD Prediabetes 08/12/2024 9:45 AM EST Office Visit [facility] [address] [place] [address] Racheal Flynn FNP Fibromyalgia (Primary Dx); Long-term current use of opiate analgesic 08/12/2024 Travel 08/05/2024 Refill [facility] [address] [place] [address] Virginie Monet MD 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 Orders Only [facility] External Provider, [facility] 08/01/2024 Refill [facility] [address] [place] [address] Virginie Monet MD Essential hypertension 07/30/2024 Refill [facility] [address] [place] [address] Virginie Monet MD Chronic bilateral low back pain without sciatica 07/28/2024 Telephone [facility] [address] [place] [address] Virginie Monet MD Appointment Request 07/23/2024 Refill [facility] [address] [place] [address] Virginie Moent MD Depression, unspecified depression type 07/17/2024 Refill [facility] [address] [place] [address] Jerrica Green NP Type 2 diabetes mellitus with hyperglycemia, without long-term current use of insulin ([facility]) 07/01/2024 Refill [facility] [address] [place] [address] Virginie Monet MD Chronic bilateral low back pain without sciatica 06/30/2024 Telephone [facility] [address] [place] [address] Virginie Monet MD Durable Medical Equipment 06/24/2024 Telephone [facility] [address] [place] [address] Virginie Monet MD 06/20/2024 Refill [facility] [address] [place] [address] Bridgette Mahmood MD from Last 3 Months Immunizations Name Administration [...] Mass Index 35.09 09/16/2024 10:51 AM EST Plan of Treatment Upcoming Encounters Date Type Department Care Team (Late st Contact Info) Description 11/04/2024 9:45 AM EDT Office Visit [facility] [address] [place] [phone] Health Maintenance Due Date Last Done Comments [...] 2024 5, 03/06/2014, 04/09/2013, Additional history exists SDOH Screening 08/21/2024 08/21/2023 Diabetes: Hemoglobin A1C 12/17/2024 025, 04/08/2024, 12/31/2023, Additional history exists Mammogram 12/31/2024 01/01/2024, 12/14, 01/01/2023, Additional history exists Diabetes: Urine Protein Screening 04/22/2025 04/22/2024, 12/28/2023, 08/27/2023, Additional history exists Lipid Panel 04/22/2025 04/22/2024, 02/02/2023 Depression Screening 09/16/2025 09/16/2024, 09/17/19 Tobacco Screening 09/16/2025 09/16/2024 RSV Patients and Patients Aged 60 years [...] complication, without long-term current use of insulin (CMS/HCC) Type 2 diabetes mellitus with hyperglycemia, with long-term current use of insulin (CMS/HCC) POCT GLUCOSE Routine 09/16/2024 10:52 AM EST Type 2 diabetes mellitus without complication, without long-term current use of insulin (CMS/HCC) Type 2 diabetes mellitus with hyperglycemia, with long-term current use of insulin (CMS/HCC) POCT AIMEE-14 URINE DRUG SCREEN Routine 09/09/2024 1:39 PM EST Long-term current use of opiate analgesic POCT AIMEE-14 URINE DRUG SCREEN Routine 08/12/2024 1:45 PM EST Long-term current use of opiate analgesic MR KNEE WO CONTRAST LEFT Routine 08/02/2024 8:54 AM EST HEPATITIS C VIRAL RNA, QUANTITATIVE, REAL-TIME PCR [...] Recently Relevant to Health Maintenance Results * (ABNORMAL) POCT HGB A1C (09/16/2024 10:52 AM EST) Hemoglobin A1C 7.7(A) 4.0 - 6.0 % QC Media Lot # [id number] Lot# Expiration Date Blood 09/16/2024 10:5 2 AM EST Virginie Lopez MD POINT OF CARE TEST EN TER/EDIT ORDERABLES Final Result * POCT Glucose (09/16/2024 10:52 AM EST) Glucose Blood, POC 146 60 - 200 mg/dL QC Media Lot # [id number] Lot# Expiration Date Blood Capillary blood specimen / Unknown 09/16/2024 10:52 AM EST Virginie Lopez MD POINT OF CARE TEST EN TER/EDIT ORDERABLES Final Result * POCT AIMEE-14 Urine Drug Screen (09/09/2024 1:39 PM EST) Only the most recent of2 resultswithin the time period is included. THC Positive TCA, Urine Positive Oxycodone Screen, Urine Positive Urine Urine specimen obtained by clean catch procedure / Unknown 09/09/2024 1:39 PM EST Benita Wakefield RN - 09/09/2024 1:39 PM EST UTOX cup Lot#[id number] Exp. 03/04/26 Internal Pass Control Racheal Flynn OIL AND GAS EXPLORATION TECHNICIAN POINT OF CARE TEST ENTER/EDIT ORDERABLES Final Result * MR Knee w/o Contrast Left (08/02/2024 8:54 AM EST) Anatomical Region Laterality Modality Magnetic Resonan ce 08/02/2024 8:54 AM EST Narrative 08/02/2024 8:56 AM EST ? [facility] ?[address] ?[place] [address] ? Magnetic Resonance Report ? Signed ? Patient: Martins,Anastasia ?MR#: [id number] ?? [birth year] ? : 1965 ?Acct:[id number] ? Age/Sex: 58 / F ?ADM Date: 08/01/24 ? Loc: HO.MRI ? Attending Dr: Pete Varela MD ? Ordering Physician: Pete Varela MD ?? Date of Service: 08/01/24 ?? Procedure(s): MR knee LT wo con ?? Accession Number(s): [id number] ? cc: Virginie Monet MD; Pete Varela [...] DD/ 0854 ? TD/TT: 08/02/24 0854 ? Shaker Operator: ? Procedure Note Mauricio Ribeiro - 08/02/[address] [address] Magnetic Resonance Report Signed Patient: Virginie Martins#: [id number] [birth year] : 1965Acct:[id number] Age/Sex: 58 / FADM Date: 08/01/24 Loc: HO.MRI Attending Dr: Pete Varela MD Ordering Physician: Pete Varela MD Date of Service: 08/01/24 Procedure(s): MR knee LT wo con Accession Number(s): [id number] cc: Virginie Monet MD; Pete Varela MD [...] 08/02/24 0855 DD/ 0854 TD/TT: 08/02/24 0854 Shaker Operator: [facility] External Provider IMG MRI PROCEDURES Final Result * Lipid Panel with Reflex to Direct LDL (04/22/2024 9:30 AM EDT) Triglycerides 149 <150 mg/dL [facility] Comment:Desirable Triglyceri de: less than 150 mg/dLBorderline High Triglyceride 150-199 mg/dLHigh Triglyceride: 200-499 mg/dLVery High Triglyceride: greater than or equal to 5OO mg/dL Cholesterol 154 <200 mg/dL [facility] Comment:Desirable Cholestero l: less than 200 mg/dLBorderline High Cholesterol: 200-239 mg/dLHigh Cholesterol: greater than 239 mg/dL LDL Cholesterol Calculated 79 <100 mg/dL [facility] Comment:Desirable LDL: less than 100 mg/dLNear Optimal/Above Optimal LDL: 110- 129 mg/dLBorderline High LDL: 130-159 mg/dLHigh LDL: 160-189 mg/dLVery High LDL: greater than or equal to 190 mg/dL HDL Cholesterol 46 >40 mg/dL [facility] Comment:Desirable HDL: great er than 40 mg/dL Note: This HDL assay may give artificially low results in patients with liver disease. Blood 04/22/2024 9:30 AM EDT 04/22/2024 11:35 AM EDT Virginie Lopez MD LAB BLOOD ORDERABLES Final Result Performing Organization Address [facility] Co de Phone Number [facility] [address] [place] [address] [phone] * Hepatitis C Viral RNA, Quantitative, Real-Time PCR (04/22/2024 9:30 AM EDT) Hepatitis C Viral Load <15 NOT DETECTED NOT DETECTED IU/mL [facility] HCV Log PCR <1.18 NOT DETECTED NOT DETECTED Log IU/mL [facility] Comment:For additional infor екатерина, please refer tohttp://education.[employer]/faq/GUK79f7(This link is being provided for informational/educational purposes only.)THIS TEST WAS PERFORMED AT:[facility] [place] [id number] PERRY MD Blood 04/22/2024 9:30 AM EDT 04/22/2024 11:35 AM EDT us Virginie Lopez MD LAB BLOOD ORDERABLES Final Result Performing Organization Address [facility] de Phone Number [facility] [address] [place] [address] [phone] * Albumin, Random Urine W/Creatinine (04/22/2024 9:30 AM EDT) Creatinine, Urine 193.55 mg/dL [facility] Microalbumin Urine 16.0 mg/L [facility] Microalbum Creatinine Ratio Ur 8.2 <30 ug/mg cr [facility] Comment:Albumin/Creatinine R atio Reference Ranges: Normal: < 30 ug/mg creatinine Microalbuminuria: 30 - 300 ug/mg creatinineClinical Albuminuria: > 300 ug/mg creatinine Urine (Urine, Random) 04/22/2024 9:30 AM EDT 04/22/2024 11:23 AM EDT us Virginie Lopez MD LAB URINE ORDERABLES Final Result Performing Organization Address [facility] Co de Phone Number [facility] [address] [place] [address] [phone] * HIV-1/2 Antigen and Antibodies, Fourth Generation, with Reflexes (04/22/2024 9:30 AM EDT) HIV AB/AG Nonreactive Nonreactive [facility] Comment:HIV-1 p24 Ag and/or HIV-1/HIV-2 Ab not detected.A test result that is nonreactive does not exclude thepossibility of exposure to or infection with HIV-1 and/orHIV-2. Nonreactive results in this assay for individualswith prior exposure to HIV-1 and/or HIV-2 may be due toantigen and antibody levels that are below the limit ofdetection of this assay.The [employer] HIV Ag/Ab Combo assay result andsupplemental assay results should be interpreted inconjunction with the patient's clinical presentation,history and other laboratory results. If the results areinconsistent with clinical evidence, additional testing issuggested to confirm the result. Blood Venous blood specimen / Unknown 04/22/2024 9:30 AM EDT 04/22/2024 11:35 AM EDT us Virginie Lopez MD LAB BLOOD ORDERABLES Final Result Performing Organization Address [facility]/ZIP Co de Phone Number [facility] [address] [place] [address] [phone] * BI Mammogram Screening Tomosynthesis Bilateral (01/01/2024 8:00 AM EDT) Anatomical Region Laterality Modality Breast Bilateral Mammography 01/01/2024 8:00 AM EDT Narrative 01/29/2024 3:53 PM EDT ? [facility] ? [address] ?[place], [place] [address] ? Mammography Report ? Signed ? Patient: Martins,Anastasia ?MR#: [id number] ?? 07 ? : 1965 ?Acct:[id number] ? Age/Sex: 58 / F ?ADM Date: 01/01/24 ? Loc: HO.MAMMO ? Attending Dr: Virginie Lopez MD ? Ordering Physician: Virginie Monet MD ?Results: ?? 1Negative ? Date of Service: 01/01/24 ?Follow Up: 1 Year From Orig ?? inal Mammogram ? Procedure(s): MM tomosynthesis screening BI ?? Accession Number(s): [id number] ? cc: Virginie Monet MD ? EXAMINATION: [...] 1549 ? DD/ 0800 ? TD/TT: ? Shaker Operator: ? Procedure Note Edmarvlad, Image - 01/29/2024 [place] [facility] [address] [place] [address] Mammography Report Signed Patient: Virginie Martins AMR#: [id number] [birth year] : 1965Acct:[id number] Age/Sex: 58 / FADM Date: 01/01/24 Loc: HO.MAMMO Attending Dr: Virginie Lopez MD Ordering Physician: Virginie Monet MDResults: 1Negative Date of Service: 01/01/24Follow Up: 1 Year From Orig inal Mammogram Procedure(s): MM tomosynthesis screening BI Accession Number(s): [id number] cc: Virginie Monet MD EXAMINATION: MM SCREENING [...] in OV> 01/29/24 1549 DD/ 0800 TD/TT: Shaker Operator: Virginie Lopez MD IMG BI PROCEDURES Fin al Result * HPV mRNA E6/E7 (02/27/2018 3:34 PM EDT) HPV mRNA E6/E7 Not Detected NOT DETECTED [facility] Comment: This test was performed using the APTIMA(R) HPV Assay ([employer] This assay detects E6/E7 viral messenger RNA (mRNA) from 14 high-risk HPV types (16,18,31,33,35,39,45,51, 52,56,58,59,66,68). For additional information please refer to: http://education.[employer]/faq/KJM820q6 (This link is being provided for informational/ educational purposes only.) The analytical performance characteristics of this assay have been determined by [facility] [place], [place]. The modifications have not been cleared or approved by the FDA. This assay has been validated pursuant to the CLIA regulations and is used for clinical purposes. Test Performed by [facility], [place], [address] [place] [address] Adriel Barclay M.D., Ph.D., Director of Laboratories , CLIA [id number] Please note: ??Effective 03/27/2016, HPV testing will be performed using [employer]'s APTIMA test which targets mRNA. Detecting mRNA instead of DNA, as in older methods, offers significant improvements in specificity. 02/27/2018 3:34 PM EDT Ela Kern CNM HISTORICAL/NON ORDERABLE LABS Final Result [facility] [address] * Pap Smear (02/27/2018 12:00 AM EDT) Swab Ela Kern CNM LAB CYTOLOGY ORDERABLES F inal Result [facility] [address] [place] [address] [phone] from Last 3 Months or Most Recently Relevant to Health Maintenance Insurance [facility] [facility] Care Teams Metal Wire Coating Operator Relationship Specialty Start Date End Date Virginie Monet MD [address] [place] [address] PCP - General Family Medicine 07/30/20
--- OUTSIDE RECORDS SUMMARY | 2024-09-16 16:20 | XMS_ITS | Clinical Summary ---
Author Organization [facility] it Address [address] [place] [address] Care Team Providers Care Shoe Lining Fitter Name Role Phone Unavailable Primary Care Provider Unavailabl e Social History Tobacco Use Types Packs/Day Years Used Date Smoking Tobacco: Never Assessed Comments Unknown Sex and Gender Information Value Date Recorded Sex Assigned at Not on file Legal Sex Female 9:23 AM EST Gender Identity Not on file Sexual Orientation Not on file Plan of Treatment Health Maintenance Due Date Last Done Comments DTaP,Tdap,and Td Vaccines (1 - Tdap) 1984 Hepatitis B Vaccines (1 of 3 - 19+ 3-dose series) 1984 Cervical Cancer Screening: Pap Smear 1986 Zoster Vaccines (1 of 2) 10/07/2015 Pneumococcal Vaccine: 50+ Years (2 of 2 - PCV) 11/16/2017 11/16/2016 Breast Cancer Screening 01/09/2020 01/09/20 18, 06/14/2017, [...] patient's age to complete this topic Meningococcal B Vacine Aged Out No lo nger eligible based on patient's age to complete [...] has been scheduled. BI-RADS 3-probably benign finding us Gurpreet Tsai MD IMG BI PROCEDURES Edited Result - Final from Last 3 Months or Most Recently Relevant to Health Maintenance
== END 2024-09-16 13:47 | disposition home or self-care (01) ==
PROVIDERS: PCP Internal Medicine
DX: I27.20 Pulmonary hypertension, unspecified (principal); I25.10 Atherosclerotic heart disease of native coronary artery without angina pectoris; I10 Essential (primary) hypertension; E11.9 Type 2 diabetes mellitus without complications; Z01.810 Encounter for preprocedural cardiovascular examination
CPT/HCPCS: 93010; 99214; G2211

== ENCOUNTER → 2024-09-16 13:04 | Outpatient (BNVA) | payer OTHER, SELFPAY | PROVIDERS: PCP Internal Medicine | DX: Z01.810 Encounter for preprocedural cardiovascular examination (principal); I27.20 Pulmonary hypertension, unspecified; I25.10 Atherosclerotic heart disease of native coronary artery without angina pectoris; I10 Essential (primary) hypertension; E11.9 Type 2 diabetes mellitus without complications | CPT/HCPCS: 93005; 99212 ==

== ENCOUNTER 2024-09-22 05:46 | Day surgery (SDC) | payer OTHER, SELFPAY ==
[2024-09-18 11:37] VITALS: BMI 34.8
[2024-09-22] VITALS (7 sets, daily range): BP systolic 123–155; BP diastolic 57–78; PULSE 86–100; RESP 16–18; TEMP 36.1–36.4; O2SAT 94–98; BMI 34.7
[2024-09-22] MEDS: Lactated Ringers 1,000 ML 100 ML IVCONT (07:13)
[2024-09-22 07:15] LABS: Glucose, Whole Blood 204 mg/dL (60-115)
--- NOTE | 2024-09-22 07:21 | HO.ANESPROP2 ---
Documented by User: Mickie Barger NP 09/18/24 14:09 HPI - Anesthesia Eval Consult details Narrative: 58yo F for Left Knee Arthroscopy,parital medial meniscectomy Cardiac optimized. [place] [facility] [place] Pulmo [place]. [place] [facility] [place] Asthma-COPD, smoker Anesthesia Pre-Procedure Meds Is the patient on any of the following meds?: GLP1/DPP4 PMFSH Active Problems Active Problems: All Active Problems Encounter for preoperative pulmonary examination (Acute) Tear of medial meniscus of left knee (Acute) Pulmonary hypertension (Acute) Dyspnea (Acute) Lymphedema (Acute) Mass of left lower extremity (Acute) Coronary artery disease (Acute) Opioid contract exists (Acute) Abnormal stress ECG with treadmill (Acute) Palpitations (Acute) RIVER (dyspnea on exertion) (Acute) Bilateral foot pain (Acute) Tremor of both hands (Acute) Chronic bilateral back pain (Acute) Status post trigger finger release (Acute) Right shoulder pain (Acute) Vitamin D deficiency (Acute) 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 (Acute) Fibromyalgia (Acute) Type 2 diabetes mellitus (Acute) Obesity (BMI 30-39.9) (Acute) Prediabetes (Acute) Hypothyroidism (Acute) BOY (obstructive sleep apnea) (Acute) Mass of soft tissue of left lower extremity (Acute) Hyperthyroidism (Acute) Hypertension (Acute) Palpitations (Acute) Tobacco dependence (Acute) Pulmonary nodules (Acute) Asthma-COPD overlap syndrome (Acute) Past Medical History Medical History (Updated 09/19/24 @ 12:14 by Kait Beckwith PA-C) Coronary artery disease Nicotine dependence, cigarettes, uncomplicated Pulmonary hypertension Dyspnea Vitamin D deficiency Mixed irritable bowel syndrome Michael's thyroiditis Fibromyalgia Type 2 diabetes mellitus Obesity (BMI 30-39.9) Hypothyroidism BOY (obstructive sleep apnea) Hypertension Pulmonary nodules Asthma-COPD overlap syndrome Family History Family History Father Myocardial infarction Hypertension Diabetes CVD (cardiovascular disease) Mother Restless leg syndrome Diabetes Paternal Aunt Breast cancer Uterine cancer Surgical History Surgical History (Updated 09/19/24 @ 15:37 by Kait Beckwith PA-C) History of colon resection History of cholecystectomy History of colonoscopy History of esophagogastroduodenoscopy (EGD) History of lithotripsy History of surgery on right wrist History of excision of mass (09/28/21) History of elbow surgery Status post tendon repair Status post trigger finger release H/O hand surgery H/O excision of ganglion cyst H/O arthroscopy of right knee Social History Social History (Updated 09/18/24 @ 11:43 by Gricelda Hair RN) Are you a primary senior care manager to a significant other at home: No 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 If so, by whom?: No Are you DNR?: No Advance Directives: No (will bring dos) Advance Directives Information Provided: Yes Advance Directives on File: No Recently lost weight without trying: No Poor oral hygiene: No Meds Allergies Allergy/AdvReac Type Severity Reaction Status Date / Time adhesive tape Allergy Severe BLISTERS Verified 09/22/24 06:26 Tetanus Vaccines and Toxoid Allergy Intermediate SWELLING, Verified 09/22/24 06:26 [TETANUS VACCINES & TOXOID] REDNESS surgical tape Allergy Severe hives/boils Uncoded 09/22/24 06:26 Home Medications ?Medication ?Instructions ?Recorded ?Confirmed ?Last Taken ?Type duloxetine 60 mg capsule,delayed 60 mg PO DAILY 08/18/21 09/22/24 09/21/24 History release ropinirole 3 mg tablet 3 mg PO BEDTIME 10/06/21 09/22/24 09/21/24 History amitriptyline 75 mg tablet 75 mg PO BEDTIME 11/28/21 09/22/24 09/21/24 History omeprazole 20 mg capsule,delayed 20 mg PO BID 11/28/21 09/22/24 09/21/24 History release aripiprazole 2 mg tablet 2 mg PO DAILY 02/16/22 09/22/24 09/21/24 History CPAP (CPAP Machine/Device) 10/27/22 09/22/24 09/21/24 History nebulizers 10/27/22 09/22/24 09/21/24 History ibuprofen 800 mg tablet 800 mg PO Q8H PRN Pain 12/20/22 09/22/24 09/21/24 History oxycodone 5 mg tablet 5 mg PO TID PRN Pain 12/20/22 09/22/24 Unknown History nebulizers 10/12/23 09/22/24 09/21/24 History semaglutide 0.25 mg or 0.5 mg (2 0.5 mg subcut QWEEK 07/07/24 09/22/24 09/08/24 History mg/3 mL) subcutaneous pen injector (Ozempic) Exam Height,Weight and Vital Signs: Height 5 ft 8 in Weight 103.873 kg Pertinent Lab Results Pertinent Lab Results: Laboratory Tests 05/15/24 19:41 WBC 7.2 Hgb 14.2 Hct 42.0 Plt Count 311 Sodium 132 L Potassium 3.6 Chloride 98 Carbon Dioxide 23 BUN 10 Creatinine 1.06 Narrative Narrative: EKG 09/2024 EKG Details: EKG today showed normal sinus rhythm with occasional PVCs, rate 88 beats per minute, nonspecific ST-T wave abnormality, normal NH, corrected QT. Stress ECHO 08/2023 Protocol: SANTANA Max HR: 166 BPM 101% of Pred: 163 BPM Max BP: 206/070 mmHG Max Work Load: 4.6 METS Exercise stress test exercise 3 min of Santana protocol achieving 92% MPHR, with moderate to severe SOB, no chest discomfort, with isolated PVCs and PACs and atrial runs, with exaggerated response to exercise, with hotizontal depression V4, and scooping V5-V6. Echo images obtained by tech at rest and immediately post peak exercise. Definiy contrast used.Test reviewed with Dr. Sparks. Exercise echocardiogram reviewed. At rest, there is normal LVEF and wall motion. With peak exercise, there is appropriate augmentation of wall thickening and contractility. There is normal decrease in end-systolic volumes. Resting and post-exercise diastolic parameters are within normal limits. Inadequate TR jet at rest to assess pulmonary hypertension, but post exercise, there is evidence of mild pulmonary hypertension with RVSP 52mmHg (faint doppler signal). Overall, study is non-diagnostic for ischemia due to low workload. Positive for mild exercise induced pulmonary hypertension. Assessment and Plan Assessment Anesthesia Assessment: Chart Reviewed Documented by User: Cyndie Marks DO 09/22/24 07:23 HPI - Anesthesia Eval Anesthesia Pre-Procedure Meds Is the patient on any of the following meds?: GLP1/DPP4 PMFSH Past Medical History Medical History (Updated 09/19/24 @ 12:14 by Kait Beckwith PA-C) Coronary artery disease Nicotine dependence, cigarettes, uncomplicated Pulmonary hypertension Dyspnea Vitamin D deficiency Mixed irritable bowel syndrome Michael's thyroiditis Fibromyalgia Type 2 diabetes mellitus Obesity (BMI 30-39.9) Hypothyroidism BOY (obstructive sleep apnea) Hypertension Pulmonary nodules Asthma-COPD overlap syndrome Family History Family History Father Myocardial infarction Hypertension Diabetes CVD (cardiovascular disease) Mother Restless leg syndrome Diabetes Paternal Aunt Breast cancer Uterine cancer Family history of problems with anesthesia: No Surgical History Surgical History (Updated 09/19/24 @ 15:37 by Kait Beckwith PA-C) History of colon resection History of cholecystectomy History of colonoscopy History of esophagogastroduodenoscopy (EGD) History of lithotripsy History of surgery on right wrist History of excision of mass (09/28/21) History of elbow surgery Status post tendon repair Status post trigger finger release H/O hand surgery H/O excision of ganglion cyst H/O arthroscopy of right knee History of Problems with Anesthesia: No Social History Social History (Updated 09/18/24 @ 11:43 by Gricedla Hair RN) Are you a primary senior care manager to a significant other at home: No 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 If so, by whom?: No Are you DNR?: No Advance Directives: No (will bring dos) Advance Directives Information Provided: Yes Advance Directives on File: No Recently lost weight without trying: No Poor oral hygiene: No Meds Allergies Allergy/AdvReac Type Severity Reaction Status Date / Time adhesive tape Allergy Severe BLISTERS Verified 09/22/24 06:26 Tetanus Vaccines and Toxoid Allergy Intermediate SWELLING, Verified 09/22/24 06:26 [TETANUS VACCINES & TOXOID] REDNESS surgical tape Allergy Severe hives/boils Uncoded 09/22/24 06:26 Home Medications ?Medication ?Instructions ?Recorded ?Confirmed ?Last Taken ?Type duloxetine 60 mg capsule,delayed 60 mg PO DAILY 08/18/21 09/22/24 09/21/24 History release ropinirole 3 mg tablet 3 mg PO BEDTIME 10/06/21 09/22/24 09/21/24 History amitriptyline 75 mg tablet 75 mg PO BEDTIME 11/28/21 09/22/24 09/21/24 History omeprazole 20 mg capsule,delayed 20 mg PO BID 11/28/21 09/22/24 09/21/24 History release aripiprazole 2 mg tablet 2 mg PO DAILY 02/16/22 09/22/24 09/21/24 History CPAP (CPAP Machine/Device) 10/27/22 09/22/24 09/21/24 History nebulizers 10/27/22 09/22/24 09/21/24 History ibuprofen 800 mg tablet 800 mg PO Q8H PRN Pain 12/20/22 09/22/24 09/21/24 History oxycodone 5 mg tablet 5 mg PO TID PRN Pain 12/20/22 09/22/24 Unknown History nebulizers 10/12/23 09/22/24 09/21/24 History semaglutide 0.25 mg or 0.5 mg (2 0.5 mg subcut QWEEK 07/07/24 09/22/24 09/08/24 History mg/3 mL) subcutaneous pen injector (Ozempic) Exam Exam Date and Time: 09/22/24 0720 Height,Weight and Vital Signs: Height 5 ft 8 in Weight 103.873 kg Vital Signs Temperature 97.6 F 09/22/24 06:29 Pulse Rate 92 09/22/24 06:29 Respiratory Rate 16 09/22/24 06:29 Blood Pressure 155/78 H 09/22/24 06:29 Pulse Oximetry 95 09/22/24 06:29 Oxygen Delivery Method Room Air 09/22/24 06:29 Temperature 97.6 F 09/22/24 06:29 Pulse Rate 92 09/22/24 06:29 Respiratory Rate 16 09/22/24 06:29 Blood Pressure 155/78 H 09/22/24 06:29 Pulse Oximetry 95 09/22/24 06:29 Oxygen Delivery Method Room Air 09/22/24 06:29 Airway Mallampati Class: II TM Dist: >3cm Neck ROM: Full Loose/Missing/Broken Teeth: No (patient denies any loose or broken teeth) Heart: S1S2 Lungs: CTAB Assessment and Plan Assessment Anesthesia Assessment: Anesthesia Plan Discussed and Chart Reviewed Final Anesthetic Review Family History of Problems with Anesthesia: No History of Problems with Anesthesia: No NPO: Yes ASA Class: III Final Preanesthetic Review: No Changes in Pt Med Stat, Meds/Allgs Chart Reviewed, Consent Obtained/Reviewed and Anes Risks/Benef Reviewed Patient Risk: Intermediate Procedure Risk: Low Anesthetic Plan Anesthetic Plan: GA and Agree w/ Assess. and Plan Disposition: Standard PACU
[2024-09-22] MEDS: ceFAZolin Sodium/Dextrose,Iso 2 GM/50 ML PIGGYBACK IV (07:35)
--- NOTE | 2024-09-22 08:42 | P.OP_ITS ---
Operative Note Operative Note Date of Service: 09/22/24 Narrative: After the patient was identified as Virginie Martins and her left knee was initialed by myself they were brought to the operating room where general anesthesia was induced by the anesthesiologist in routine fashion. The patient was given 2 g of IV Ancef preoperatively for infection prophylaxis. The patient's left lower extremity was prepped and draped in sterile fashion. A formal time-out was completed. Marcaine was injected into the planned incision sites as well as the patient's left knee joint. A #11 scalpel blade was used to make an anterolateral portal 1 cm proximal to the joint line and 1 cm lateral to the p atellar tendon. Blunt trocar technique was used to enter the suprapatellar pouch with the knee in extension. Diagnostic arthroscopy showed multiple bands of thickened plica which would be excised at the end of the procedure. There were no loose bodies or abnormalities found in either the medial or lateral gutters. The articular surface of the patella showed diffuse grades 1 and 2 degenerative changes. The trochlear groove articular surface showed diffuse grade 1 degenerative changes. The patient's knee was flexed to 45 degrees and a valgus force was placed upon it. The medial compartment was entered. An anteromedial portal was made 1 cm proximal to the joint line and 1 cm medial to the patellar tendon. Probing of the medial meniscus showed a radial tear of the anterior horn. A partial medial meniscectomy was performed using the arthroscopic shaver. Following the partial meniscectomy the remainder of the meniscus tissue was stable. There were diffuse grades 1 and 2 degenerative changes of the medial femoral condyle as well as grade 1 degenerative changes of the medial tibial plateau. The articular surfaces of the medial tibial plateau and medial femoral condyle were already smooth so no chondroplasty was indicated. The patient's knee was placed into a neutral position. There was no injury to the anterior cruciate ligament. The patient's knee was then placed in the figure of 4 position and the lateral compartment was entered. There was no evidence of lateral meniscus tearing. There were minimal degenerative changes of the lateral femoral condyle and lateral tibial plateau. The patient's knee was once again brought into extension and the suprapatellar pouch was entered. The arthroscopic shaver and the ArthroCare Wand were used to excise the thickened bands of plica. The undersurface of the patella was then made smooth using the arthroscopic shaver. The articular surface of the trochlear groove was already smooth so no chondroplasty was indicated. The knee joint was irrigated and then drained. All arthroscopic instruments were removed. The 2 portals were closed with 3-0 nylon interrupted suture. The knee joint was injected with Marcaine. Dry sterile dressing and Richy bandages were placed over the patient's knee. The patient was awoken and extubated in the operating room. The patient was transferred to the recovery room in stable condition.
--- NOTE | 2024-09-22 08:42 | PM.OP ---
Brief Operative Note Date of Service: 09/22/24 Pre-op diagnosis: Left knee medial meniscus tear, left knee degenerative joint disease Post-op diagnosis: same Procedure: Left knee arthroscopic partial medial meniscectomy, left knee arthroscopic chondroplasty of the undersurface of the patella Implants: none Surgeon: Pete Varela MD Anesthesia: GETA Was an Instrument Mechanics Supervisor used for this Procedure?: No Estimated blood loss (mL): 10 Pathology: none sent Condition: stable Disposition: PACU
[2024-09-22] MEDS: cefTRIAXone sodium 1 GM VIAL IVPUSH (08:46)
[2024-09-22] MEDS: oxyCODONE HCl Immed Release 5 MG TABLET PO (08:55)
== END 2024-09-22 10:05 | disposition home or self-care (01) ==
PROVIDERS: PCP Internal Medicine; Visit Provider Orthopaedic Surgery
PROC: (CPT 29870; principal; 2024-09-22 07:30)
DX: S83.242A Other tear of medial meniscus, current injury, left knee, initial encounter (principal); M17.12 Unilateral primary osteoarthritis, left knee; M67.52 Plica syndrome, left knee; M25.562 Pain in left knee; M23.52 Chronic instability of knee, left knee; X58.XXXA Exposure to other specified factors, initial encounter; Y93.9 Activity, unspecified; Y92.9 Unspecified place or not applicable; Y99.9 Unspecified external cause status; M79.7 Fibromyalgia; I27.20 Pulmonary hypertension, unspecified; R91.8 Other nonspecific abnormal finding of lung field; E11.9 Type 2 diabetes mellitus without complications; I10 Essential (primary) hypertension; G47.33 Obstructive sleep apnea (adult) (pediatric); E06.3 Autoimmune thyroiditis; E66.9 Obesity, unspecified; Z79.51 Long term (current) use of inhaled steroids; Z68.36 Body mass index [BMI] 36.0-36.9, adult; Z79.1 Long term (current) use of non-steroidal anti-inflammatories (NSAID); Z87.442 Personal history of urinary calculi; Z79.85 Long-term (current) use of injectable non-insulin antidiabetic drugs; Z79.899 Other long term (current) drug therapy; Z99.89 Dependence on other enabling machines and devices; L23.1 Allergic contact dermatitis due to adhesives; Z88.7 Allergy status to serum and vaccine; Z90.49 Acquired absence of other specified parts of digestive tract; F17.210 Nicotine dependence, cigarettes, uncomplicated
CPT/HCPCS: 29881; 82947; J0131; J0171; J0690; J0696; J1171; J2003; J2405; J2704; J2795; J3010

== ENCOUNTER → 2024-09-22 05:46 | Outpatient (BNV) | payer OTHER, SELFPAY | PROVIDERS: PCP Internal Medicine; Visit Provider Orthopaedic Surgery | DX: S83.242A Other tear of medial meniscus, current injury, left knee, initial encounter (principal) | CPT/HCPCS: 29881 ==

== ENCOUNTER 2024-10-07 10:33 | Outpatient (AMB) | payer OTHER, SELFPAY ==
--- NOTE | 2024-10-07 10:35 | MHC.OFFVIS ---
Intake Visit Reasons: Right knee pain and giving way, Left knee pain Intake Note: Virginie is a 58 year old female who presents with complaints of progressively worsening right knee pain and giving way. She did undergo left knee arthroscopic surgery on 09/22/2024. She reports minimal discomfort in her left knee. She states that she underwent right knee surgery after a sports injury approximately 20 years ago. She did re-injure her right knee approximately 1 year ago. She twisted her knee and had acute onset of pain. Since that time her symptoms have gotten worse in spite of continued non operative treatments. She has tried physical therapy which aggravated her pain. She has also tried Tylenol and anti-inflammatory medicines which gave her no relief. She has had injections in the past which gave her minimal relief. She states that her right knee will give out several times per day. Allergies adhesive tape Allergy (Severe, Verified 10/07/24 10:40) BLISTERS Tetanus Vaccines and Toxoid [TETANUS VACCINES & TOXOID] Allergy (Intermediate, Verified 10/07/24 10:40) SWELLING, REDNESS surgical tape Allergy (Severe, Uncoded 10/07/24 10:40) hives/boils Medication List - Last Reviewed 10/07/24 by CHRISTA Frey acetaminophen (Tylenol Extra Strength) 500 mg PO Q6H PRN albuterol sulfate 90 mcg/actuation 2 puffs PO Q6H PRN 30 days albuterol sulfate 2.5 mg (3 mL) continuous nebulization QID PRN amitriptyline 75 mg PO BEDTIME aripiprazole 2 mg PO DAILY atorvastatin 40 mg PO DAILY CPAP (CPAP Machine/Device) As directed duloxetine 60 mg PO DAILY [id number] 200-62.5-25 mcg (Trelegy Ellipta) 1 inh inhalation DAILY 30 days hydrochlorothiazide 12.5 mg PO DAILY ibuprofen 800 mg PO Q8H PRN isosorbide mononitrate ER 30 mg PO DAILY lancets (FreeStyle Lancets) Once a day levothyroxine 125 mcg PO DAILY 30 days naloxone 4 mg/actuation (Narcan) 4 mg intranasal Q2M PRN nebulizers As directed nebulizers As directed omeprazole 20 mg PO BID oxycodone 5 mg PO Q6H PRN ropinirole 3 mg PO BEDTIME semaglutide (Ozempic) 0.5 mg subcut QWEEK PFSH Medical History (Updated 10/07/24 @ 10:55 by Pete Varela MD) Coronary artery disease Nicotine dependence, cigarettes, uncomplicated Pulmonary hypertension Dyspnea Vitamin D deficiency Mixed irritable bowel syndrome Michael's thyroiditis Fibromyalgia Type 2 diabetes mellitus Obesity (BMI 30-39.9) Hypothyroidism BOY (obstructive sleep apnea) Hypertension Pulmonary nodules Asthma-COPD overlap syndrome Surgical History (Updated 09/19/24 @ 15:37 by Kait Beckwith PA-C) History of colon resection History of cholecystectomy History of colonoscopy History of esophagogastroduodenoscopy (EGD) History of lithotripsy History of surgery on right wrist History of excision of mass (09/28/21) History of elbow surgery Status post tendon repair Status post trigger finger release H/O hand surgery H/O excision of ganglion cyst H/O arthroscopy of right knee Family History Father Myocardial infarction Hypertension Diabetes CVD (cardiovascular disease) Mother Restless leg syndrome Diabetes Paternal Aunt Breast cancer Uterine cancer Social History (Updated 09/18/24 @ 11:43 by Gricelda Hair RN) Are you a primary urgent care technician to a significant other at home: No Do you presently have 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, 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 or older and lives alone: No Alcohol intake: former Patient Tobacco Use Status: Current everyday Tobacco user Tobacco use type: Cigarette Cigarettes Per Day: 6 Years Smoked: 30 Physical Exam Const Other: Well-nourished well-developed very friendly female awake alert and oriented x3 in no acute distress Extrem Other: Left knee examination shows that the surgical incisions are healing well, no erythema, mild discomfort with range of motion, no instability Right knee examination shows a minimal effusion, minimal crepitus with range of motion, tenderness along her medial joint line, positive Pasquale's test, no instability Results Reviewed Results Reviewed: Standing full weight-bearing x-rays of the patient's right knee taken previously show mild joint space narrowing, no acute bony abnormalities Assessment & Plan Assessment & Plan (1) Left knee pain: Code(s): M25.562 - Pain in left knee Category: Medical (2) Tear of medial meniscus of right knee: Code(s): S83.241A - Other tear of medial meniscus, current injury, right knee, initial encounter Category: Medical Plan Ms. Martins is doing well after undergoing left knee arthroscopic surgery on 09/22/2024. Her sutures were removed and Steri-Strips placed over her incisions. She does have progressively worsening right knee pain and mechanical symptoms most likely due to a recurrent medial meniscus tear. Thus, I will send the patient for an MRI of her right knee for further evaluation. I will see her back once the MRI is completed to discuss the findings and treatment options. Feel free to call me at any time should questions regarding her orthopedic management arise. Orders: Orders MR knee RT wo con Today S83.241A - Other tear of medial meniscus, current injury, right knee, initial encounter Coding Level of Care Code Est Pt Level 3 (07800) Complex EM visit Add On G2211 Diagnoses Left knee pain M25.562 Tear of medial meniscus of right knee S83.241A
== END 2024-10-07 10:55 | disposition home or self-care (01) ==
LOC: HO.HOS 10:33
PROVIDERS: PCP Internal Medicine; Visit Provider Orthopaedic Surgery
DX: M25.561 Pain in right knee (principal); S83.242A Other tear of medial meniscus, current injury, left knee, initial encounter
CPT/HCPCS: 99213; G2211

== ENCOUNTER → 2024-10-07 10:33 | Outpatient (BNVA) | payer OTHER, SELFPAY | PROVIDERS: PCP Internal Medicine; Visit Provider Orthopaedic Surgery | DX: M25.562 Pain in left knee (principal); S83.241A Other tear of medial meniscus, current injury, right knee, initial encounter; X58.XXXA Exposure to other specified factors, initial encounter; Y93.9 Activity, unspecified; Y92.9 Unspecified place or not applicable; Y99.9 Unspecified external cause status | CPT/HCPCS: 99212 ==

== ENCOUNTER 2024-10-22 16:28 | Emergency (ER) | payer OTHER, SELFPAY ==
[2024-10-22 17:02] VITALS: BP 187/72; PULSE 100; RESP 18; TEMP 37.7; O2SAT 98; BMI 34.9
--- NOTE | 2024-10-22 17:02 | ED.GENADULT ---
HPI - General Adult General Chief complaint: Abdominal Pain Stated complaint: pain upper right quarter, pain in belly button Time Seen by Provider: 10/22/24 18:59 Related Data Home Medications ?Medication ?Instructions ?Recorded ?Confirmed duloxetine 60 mg capsule,delayed 60 mg PO DAILY 08/18/21 10/07/24 release ropinirole 3 mg tablet 3 mg PO BEDTIME 10/06/21 10/07/24 amitriptyline 75 mg tablet 75 mg PO BEDTIME 11/28/21 10/07/24 omeprazole 20 mg capsule,delayed 20 mg PO BID 11/28/21 10/07/24 release aripiprazole 2 mg tablet 2 mg PO DAILY 02/16/22 10/07/24 CPAP (CPAP Machine/Device) 10/27/22 10/07/24 nebulizers 10/27/22 10/07/24 ibuprofen 800 mg tablet 800 mg PO Q8H PRN Pain 12/20/22 10/07/24 nebulizers 10/12/23 10/07/24 semaglutide 0.25 mg or 0.5 mg (2 0.5 mg subcut QWEEK 07/07/24 10/07/24 mg/3 mL) subcutaneous pen injector ([employer]) Previous Rx's ?Medication ?Instructions ?Recorded lancets 28 gauge (FreeStyle #50 ea 11/16/20 Lancets) naloxone 4 mg/actuation nasal 4 mg intranasal Q2M PRN opioid 09/01/21 spray (Narcan) overdose #2 ea levothyroxine 125 mcg tablet 125 mcg PO DAILY 30 days #30 tabs 01/23/22 atorvastatin 40 mg tablet 40 mg PO DAILY #60 tabs 06/20/23 hydrochlorothiazide 12.5 mg tablet 12.5 mg PO DAILY #90 tabs 06/20/23 albuterol sulfate 90 mcg/actuation 2 puff PO Q6H PRN for wheezing 30 03/21/24 aerosol inhaler days #8.5 grams acetaminophen 500 mg tablet 500 mg PO Q6H PRN fever or pain 05/12/24 (Tylenol Extra Strength) #14 tabs fluticasone fur. 200 mcg-umeclid 1 inh inhalation DAILY 30 days #60 08/26/24 62.5 mcg-vilant 25 mcg ea inhalat.powder (Trelegy Ellipta) albuterol sulfate 2.5 mg/3 mL 2.5 mg (3 mL) continuous 08/29/24 (0.083 %) solution for nebulization nebulization QID PRN for wheezing #180 mL isosorbide mononitrate 30 mg 30 mg PO DAILY #60 tabs 09/03/24 tablet,extended release 24 hr oxycodone 5 mg tablet 5 mg PO Q6H PRN pain #20 tabs 09/22/24 Allergies Allergy/AdvReac Type Severity Reaction Status Date / Time adhesive tape Allergy Severe BLISTERS Verified 10/22/24 17:03 Tetanus Vaccines and Toxoid Allergy Intermediate SWELLING, Verified 10/22/24 17:03 [TETANUS VACCINES & TOXOID] REDNESS surgical tape Allergy Severe hives/boils Uncoded 10/07/24 10:40 [facility] Past Medical History Medical History (Updated 10/23/24 @ 09:02 by Elaina Hull DO) Coronary artery disease Nicotine dependence, cigarettes, uncomplicated Pulmonary hypertension Dyspnea Vitamin D deficiency Mixed irritable bowel syndrome Michael's thyroiditis Fibromyalgia Type 2 diabetes mellitus Obesity (BMI 30-39.9) Hypothyroidism BOY (obstructive sleep apnea) Hypertension Pulmonary nodules Asthma-COPD overlap syndrome Surgical History (Updated 09/19/24 @ 15:37 by Kait Beckwith PA-C) History of colon resection History of cholecystectomy History of colonoscopy History of esophagogastroduodenoscopy (EGD) History of lithotripsy History of surgery on right wrist History of excision of mass (09/28/21) History of elbow surgery Status post tendon repair Status post trigger finger release H/O hand surgery H/O excision of ganglion cyst H/O arthroscopy of right knee Family History Family History Father Myocardial infarction Hypertension Diabetes CVD (cardiovascular disease) Mother Restless leg syndrome Diabetes Paternal Aunt Breast cancer Uterine cancer Social History Social History (Updated 09/18/24 @ 11:43 by Gricelda Hair RN) Are you a primary physician assistant primary care to a significant other at home: No Do you presently have visiting nurse or other home services: Yes (PROCUREMENT MANAGER 3 x week, 2 hours) Alcohol intake: former Patient Tobacco Use Status: Current everyday Tobacco user Tobacco use type: Cigarette Cigarettes Per Day: 6 Years Smoked: 30 Physical Exam ED Vital Signs: Vital Signs - 24 hr 10/22/24 17:02 Temperature 99.8 F Pulse Rate 100 Respiratory Rate 18 Blood Pressure 187/72 H Pulse Oximetry 98 Oxygen Delivery Method Room Air BMI result Body Mass Index 34.9 Course Course Course Narrative: RME, this is a rapid medical exam performed by Charanjit Barry please refer to primary provider for complete H&P- 59-year-old female who is status post cholecystectomy presents for evaluation of mid to right upper abdominal pain. She was associated nausea. Symptoms started 7-10 days ago. She has a temp of 99.8? in triage. Plan for labs, blood cultures, urinalysis. Will defer any advanced imaging. Medical Decision Making Lab Data 10/22/24 18:35 10/22/24 18:35 Labs: Lab Results 10/22/24 Range/Units 18:35 WBC 6.7 (4.8-10.8) X10*3/uL RBC 5.55 H (4.20-5.50) X10*6/uL Hgb 15.2 (12.0-16.0) g/dl Hct 43.7 (37.0-47.0) % MCV 78.7 L (80.0-98.0) fL MCH 27.4 (27.0-33.0) pg MCHC 34.8 (31.0-35.0) g/dl RDW 13.9 (11.0-16.0) % Plt Count 348 (160-400) X10*3/uL MPV 9.1 L (9.4-12.3) fL Immature Gran % (Auto) 0.1 (0.0-0.4) % Neut % (Auto) 56.2 (45-73) % Lymph % (Auto) 33.0 (20-40) % Ralls % (Auto) 8.2 (2-11) % Eos % (Auto) 2.1 (0-4) % Baso % (Auto) 0.4 (0-2) % Lymph # (Auto) 2.2 (1.2-4.9) X10*3/uL Ralls # (Auto) 0.6 (0.1-1.2) X10*3/uL Eos # (Auto) 0.1 (0.0-0.4) X10*3/uL Baso # (Auto) 0.0 (0.0-0.2) X10*3/uL Abs Immat Gran (auto) 0.01 (0.00-0.03) X10*3/uL Absolute Neuts (auto) 3.8 (2.0-8.3) x10*3/uL Absolute Nucleated RBC 0.000 (0.0-0.012) X10*3/uL Nucleated RBC % (auto) 0.0 (0.0-0.2) /100WBC Sodium 141 (135-145) mmol/L Potassium 3.5 (3.3-5.1) mmol/L Chloride 106 (96-108) mmol/L Carbon Dioxide 27 (22-29) mmol/L Anion Gap 12 (12-20) BUN 13 (9-16) mg/dL Creatinine 0.66 (0.5-1.4) mg/dL Estim Creat Clear Calc 112.2 Estimated GFR > 60 Random Glucose 161 H (60-115) mg/dL Lactic Acid 1.9 (0.5-2.0) mmol/L Calcium 10.0 (8.4-10.2) mg/dL Total Bilirubin 0.4 (0.0-1.0) mg/dL AST 38 H (5-31) U/L ALT 59 H (0-31) U/L Alkaline Phosphatase 126 H (39-117) U/L Total Protein 7.8 (6.5-8.0) g/dL Albumin 4.2 (3.5-5.0) g/dL Lipase 41 (8-78) U/L Influenza Type A (PCR) NEGATIVE (Negative) Influenza Type B (PCR) NEGATIVE (Negative) RSV RNA Qual (PCR) NEGATIVE (Negative) SARS-CoV-2 RNA (RT-PCR) NEGATIVE (Negative) Discharge Plan Discharge Clinical Impression: Abdominal pain Patient Disposition: Left W/O Completing Treatment Prescriptions: No Action (DME) lancets [FreeStyle Lancets] 28 gauge misc See Rx Instructions .ROUTE .MEDSUPPLY Qty: 50 6RF Rx Instructions: Once a day levothyroxine 125 mcg tablet 125 mcg PO DAILY 30 Days Qty: 30 3RF hydrochlorothiazide 12.5 mg tablet 12.5 mg PO DAILY Qty: 90 3RF Trelegy Ellipta 200-62.5-25 mcg blister with device 1 inh inhalation DAILY 30 Days Qty: 60 12RF albuterol sulfate 2.5 mg /3 mL (0.083 %) solution for nebulization 2.5 mg continuous nebulization QID PRN (Reason: for wheezing) Qty: 180 0RF isosorbide mononitrate 30 mg tablet extended release 24 hr 30 mg PO DAILY Qty: 60 5RF oxycodone 5 mg tablet 5 mg PO Q6H PRN (Reason: pain) Qty: 20 0RF Rx Instructions: Partial Fill upon patient request. ibuprofen 800 mg tablet 800 mg PO Q8H PRN (Reason: Pain) acetaminophen [Tylenol Extra Strength] 500 mg tablet 500 mg PO Q6H PRN (Reason: fever or pain) Qty: 14 0RF naloxone [Narcan] 4 mg/actuation spray,non-aerosol 4 mg intranasal Q2M PRN (Reason: opioid overdose) Qty: 2 1RF Rx Instructions: spray 1 dose into ONE nostril; alternate nostrils w each dose until help arrives amitriptyline 75 mg tablet 75 mg PO BEDTIME omeprazole 20 mg capsule,delayed release(DR/EC) 20 mg PO BID ropinirole 3 mg tablet 3 mg PO BEDTIME aripiprazole 2 mg tablet 2 mg PO DAILY duloxetine 60 mg capsule,delayed release(DR/EC) 60 mg PO DAILY (DME) nebulizers Misc See Rx Instructions .Route Rx Instructions: As directed (DME) CPAP Machine/Device Device See Rx Instructions .Route Rx Instructions: As directed (DME) nebulizers Misc See Rx Instructions .Route Rx Instructions: As directed Ozempic 0.25 mg or 0.5 mg (2 mg/3 mL) pen injector 0.5 mg subcut QWEEK atorvastatin 40 mg tablet 40 mg PO DAILY Qty: 60 3RF albuterol sulfate 90 mcg/actuation HFA aerosol inhaler 2 puff PO Q6H PRN (Reason: for wheezing) 30 Days Qty: 8.5 11RF Discharge Date/Time: 10/22/24 19:23
--- OUTSIDE RECORDS SUMMARY | 2024-10-22 18:37 | XMS_ITS | Encounter Summary ---
Author Organization [employer] Address [address] [place] [address] Care Team Providers Care Construction Technician Name Role Phone Virginie Monet MD Primary Care Provide r Encounter Details Date Type Department Care Team ([facility] Contact Info) Description 05/19/2024 Orders Only [facility] [address] [place], [place] [phone] Virginie Monet MD [address] [place], [place] [phone] Social History Tobacco Use Types Packs/Day Years [...] Description 11/04/2024 9:45 AM EDT Office Visit [facility] [address] [place] [phone] 12/18/2024 9:00 AM EDT Office Visit [address] [address] Virginie Monet MD [address] [place] [phone] documented as of this encounter Visit Diagnoses Not on filedocumented in this encounter Additional Health Concerns Assessment Noted Time PHQ-9 Depression Total Score: 15 024 11:32 AM EDT documented as of this encounter Care Teams Construction Technician Relationship Specialty Start Date End Date Virginie Monet MD [address] [place] [phone] PCP - General Family Medicine 07/30/20 documented as of this encounter
--- OUTSIDE RECORDS SUMMARY | 2024-10-22 18:37 | XMS_ITS | Encounter Summary ---
Author Organization [employer] Address [address] [place] [address] Care Team Providers Care Fuel Agent Name Role Phone Virginie Monet MD Primary Care Provide r Reason for Visit * Reason Comments Med Refill Encounter Details Date Type Department Care Team ([facility] st Contact Info) Description 10/19/2024 Refill [facility] [address] [place], [place] [phone] Virginie Monet MD [address] [place], [place] [phone] Essential hypertension Social History Tobacco Use Types [...] AM EDT Office Visit [facility] [address] [place] [phone] 12/18/2024 9:00 AM EDT Office Visit [address] [address] Virginie Monet MD [address] [place] [address] documented as of this encounter Visit Diagnoses Diagnosis Essential hypertension Unspecified essential hypertension documented in this encounter Additional Health Concerns Assessment Noted Time PHQ-9 Depression Total Score: 0 09/17/19 25 10:52 AM EST documented as of this encounter Care Teams Fuel Agent Relationship Specialty Start Date End Date Virginie Monet MD [address] [place] [phone] PCP - General Family Medicine 07/30/20 documented as of this encounter
--- OUTSIDE RECORDS SUMMARY | 2024-10-22 18:37 | XMS_ITS | Encounter Summary ---
Author Organization [employer] Address [address] [place] [address] Care Team Providers Care Desizing Machine Operator Head End Name Role Phone Virginie Monet MD Primary Care Provide r Reason for Visit * Reason Comments Med Refill Encounter Details Date Type Department Care Team ([facility] st Contact Info) Description 01/22/2024 Refill [facility] [address] [place], [place] [phone] Virginie Monet MD [address] [place], [place] [phone] Anxiety Social History Tobacco Use Types Packs/Day [...] Description 11/04/2024 9:45 AM EDT Office Visit [facility] [address] [place] [phone] 12/18/2024 9:00 AM EDT Office Visit [address] [address] Virginie Monet MD [address] [place] [address] documented as of this encounter Visit Diagnoses Diagnosis Anxiety Anxiety state, unspecified documented in this encounter Additional Health Concerns Assessment Noted Time PHQ-9 Depression Total Score: 15 024 11:32 AM EDT documented as of this encounter Care Teams Desizing Machine Operator Head End Relationship Specialty Start Date End Date Virginie Monet MD [address] [place] [phone] PCP - General Family Medicine 07/30/20 documented as of this encounter
--- OUTSIDE RECORDS SUMMARY | 2024-10-22 18:37 | XMS_ITS | Encounter Summary ---
Author Organization [employer] Address [address] [facility] 7[address] [place] [address] Care Team Providers Care Promotional Representative Name Role Phone Virginie Monet MD Primary Care Provide r Reason for Visit * Reason Onset Date Comments DRAWING CHECKER 09/17/2024 Encounter Details Date Type Department Care Team ([facility] Contact Info) Description 09/17/2024 Telephone [facility] [address] [place], [place] [phone] Virginie Monet MD [address] [place] [address] DRAWING CHECKER Social History Tobacco Use Types Packs/Day Years [...] * Telephone Encounter - Stephen Ross - 09/17/2024 8:01 AM EST Tc from pt stating that she filled out paper work for more DRAWING CHECKER 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 Contact pt at [phone] documented in this encounter Plan of Treatment Upcoming Encounters Date Type Department Care Team (Late st Contact Info) Description 11/04/2024 9:45 AM EDT Office Visit [facility] [address] [place] [phone] 12/18/2024 9:00 AM EDT Office Visit [facility] [address] [place] [address] Virginie Monet MD [address] [place] [address] documented as of this encounter Visit Diagnoses Not on filedocumented in this encounter Additional Health Concerns Assessment Noted Time PHQ-9 Depression Total Score: 0 09/17/19 25 10:52 AM EST documented as of this encounter Care Teams Promotional Representative Relationship Specialty Start Date End Date Virginie Monet MD [address] [place] [address] PCP - General Family Medicine 07/30/20 documented as of this encounter
--- OUTSIDE RECORDS SUMMARY | 2024-10-22 18:37 | XMS_ITS | Encounter Summary ---
Author Organization [employer] Address [address] [facility] [place] [address] Care Team Providers Care Glass Novelty Maker Name Role Phone Virginie Monet MD Primary Care Provide r Reason for Visit * Reason Onset Date Comments Appointment Request 06/25/2023 Encounter Details Date Type Department Care Team ([facility] Contact Info) Description 06/25/2023 Telephone [facility] [address] [place], [place] [phone] Virginie Monet MD [address] [place] [address] Appointment Request Social History Tobacco Use Types [...] call back to r/s appt on 06/25 health underwriter did cancel appt per patient request documented in this encounter Plan of Treatment Upcoming Encounters Date Type Department Care Team (Late st Contact Info) Description 11/04/2024 9:45 AM EDT Office Visit [facility] [address] [place] [phone] 12/18/2024 9:00 AM EDT Office Visit [facility] [address] [place] [phone] Virginie Monet MD [address] [place] [address] documented as of this encounter Visit Diagnoses Not on filedocumented in this encounter Additional Health Concerns Assessment Noted Time PHQ-9 Depression Total Score: 0 05/29/20 23 2:13 PM EST documented as of this encounter Care Teams Glass Novelty Maker Relationship Specialty Start Date End Date Virginie Monet MD [address] [place] [address] PCP - General Family Medicine 07/30/20 documented as of this encounter
--- OUTSIDE RECORDS SUMMARY | 2024-10-22 18:37 | XMS_ITS | Clinical Summary ---
Author Organization [employer] Address [address] [place] [address] Care Team Providers Care Drawing Frame Tender Name Role Phone Unavailable Primary Care Provider [...] ( - 2023- season) 2024 Influenza Vaccine (Season Ended) 2025 04/09/2013 RSV Immunization Adult Patients (1 - 1-dose 75+ series) 2040 Pneumococcal [...] age to complete this topic Meningococcal B Vaccine Aged Out No l onger eligible based on patient's age to complete [...] corresponding to large simple cyst demonstrated on 2012 ultrasound. Impression: Probably benign finding. Magnification views [...]
--- OUTSIDE RECORDS SUMMARY | 2024-10-22 18:37 | XMS_ITS | Clinical Summary ---
Author Organization [employer] Address [address] [facility] [address] [place] [address] Care Team Providers Care Luster Repairer Name Role Phone Virginie Monet MD [...] spray into affected nostril(s) See administration instructions. [place] 1 spray by intranasal route once; if [...] complication, without long-term current use of insulin ([facility]) Use 1 sensor every 14 days per package directions 2 each 2022 Active Continuous Blood Gluc Pill Machine Operator (FreeStyle Shane 2 Fulton) deviceIndication s:Type 2 diabetes mellitus without complication, without long-term current use of insulin ([facility]) Use reader for CGM per [...] AND AT BEDTIME DIRECTED 2023 Active Lancets (Oasmia PharmaceuticalTouch Delica Plus Satots20W) miscIndications: Type 2 diabetes mellitus with hyperglycemia, without long-term current use of insulin ([facility]) USE DIRECTED TWICE DAILY 100 each 11 2023 Active OneTouch Ultra Test test stripIndications :Type 2 diabetes mellitus with hyperglycemia, without long-term current use of insulin ([facility]) USE DIRECTED TWICE DAILY 100 [...] hyperglycemia, without long-term current use of insulin ([facility]) Check blood sugar before 1 meal ( breakfast or lunch) if sugar >250-299 administer 3 units, if 300-349, administer 6 units, if >350 administer 9 units and call office. 1 each 2023 Active pen needle 31G x 5 mm miscIndications: Type 2 diabetes mellitus with hyperglycemia, without long-term current use of insulin (CMS/HCC) Use as instructed 100 each 12 05/16 Active omeprazole (PriLOSEC) [address] capsule TAKE 1 CAPSULE BY MOUTH IN THE MORNING AND AT BEDTIME 180 capsule 1 2023 Active DULoxetine (Cymbalta) [address] capsuleIndicatio ns:Depression, unspecified depression type TAKE 1 CAPSULE(60 MG) BY MOUTH IN THE MORNING 90 capsule 2024 Active levothyroxine (Synthroid, Levoxyl) 125 MCG tabletIndication s:Michael's thyroiditis TAKE 1 TABLET(125 MCG) BY MOUTH DAILY BEFORE BREAKFAST 30 tablet 3 2024 Active metFORMIN (Glucophage) 500 MG tabletIndication s:Prediabetes TAKE 1 TABLET BY MOUTH TWICE DAILY WITH THE MORNING AND EVENING MEAL 180 tablet 1 2024 Active ARIPiprazole (Abilify) 2 MG tabletIndication s:Depression, unspecified depression type TAKE 1 TABLET(2 MG) BY MOUTH IN THE MORNING 30 tablet 1 2024 Active semaglutide (Ozempic) 2 MG/1.5ML solution pen-injectorIndi cations:Type 2 diabetes mellitus with hyperglycemia, with long-term current use of insulin ([facility]) Inject 1 mg under the skin 1 (one) time per week. 2 each 3 2024 Active oxyCODONE (Roxicodone) 5 MG immediate release tabletIndication s:Chronic bilateral low back pain without sciatica Take 1 tablet (5 mg) by mouth every 8 (eight) hours if needed for severe pain for up to 28 days. 84 tablet 10/24 Active Continuous Glucose Pill Machine Operator (FreeStyle Shane 3 F[place]on) deviceIndication s:Type 2 diabetes mellitus with hyperglycemia, with long-term current use of insulin (CMS/HCC) 1 each Once per day. Use as directed for CGM 1 each 2024 Active Continuous Glucose Sensor (FreeStyle Shane 3 Plus Sensor) miscIndications: Type 2 diabetes mellitus with hyperglycemia, with long-term current use of insulin (CMS/HCC) 1 each every 15 days. Apply 1 every 15 days as directed for CGM 2 each 2024 Active glucose blood (FreeStyle Precision Arvin Test) test stripIndications :Type 2 diabetes mellitus with hyperglycemia, with long-term current use of insulin (CMS/[facility]) Use to test blood sugar 2 times daily in case of CGM failure or extremes of BG 100 each 09/30 Active insulin lispro (HumaLOG) 100 UNIT/ML injectionIndicat ions:Type 2 diabetes mellitus with hyperglycemia, without long-term current use of insulin (CMS/HCC) ADMINISTER PER SLIDING SCALE WITH 1 MEAL ONCE A DAY: 250-299=3U,300-3 49=6U,>400=9U AND CALL CLINIC 3 mL 1 2024 Active losartan-hydroCH LOROthiazide (Hyzaar) 50-12.5 MG tabletIndication s:Essential hypertension TAKE 1 TABLET BY MOUTH DAILY 30 tablet 2 2024 Active insulin lispro (HumaLOG KWIKPEN) 100 UNIT/ML injectionIndicat ions:Type 2 diabetes mellitus with hyperglycemia, without long-term current use of insulin ([facility]/HCC) ADMINISTER ONCE A DAY WITH 1 MEAL, 3U FOR BLOOD SUGAR BETWEEN 250-299, 6U FOR BLOOD SUGAR 300-349,FOR BLOOD SUGAR>400 INJECT 9U AND CALL CLINIC 3 mL 1 10/15 Discontinued losartan-hydroCH LOROthiazide (Hyzaar) 50-12.5 MG tabletIndication s:Essential hypertension TAKE 1 TABLET BY MOUTH DAILY 30 tablet 2 10/20 Discontinued oxyCODONE (Roxicodone) 5 MG immediate release tabletIndication s:Chronic bilateral low back pain without sciatica Take 1 tablet (5 mg) by mouth every 8 (eight) hours if needed for severe pain for up to 28 days. 84 tablet 09/26 Discontinued( Reorder (will not trigger notification to Pharmacy)) Continuous Glucose Pill Machine Operator (FreeStyle Shane 3 [place]on) deviceIndication s:Type 2 diabetes mellitus with hyperglycemia, with long-term current use of insulin ([facility]) 1 each Once per day. Use as directed for CGM 1 each 09/30 Discontinued( Reorder (will not trigger notification to Pharmacy)) Continuous Glucose Sensor (FreeStyle Shane 3 Plus Sensor) miscIndications: Type 2 diabetes mellitus with hyperglycemia, with long-term current use of insulin ([facility]) 1 each every 15 days. Apply 1 every 15 days as directed for CGM 2 each 11 09/30 Discontinued( Reorder (will not trigger notification to Pharmacy)) glucose blood (FreeStyle Precision Arvin Test) test stripIndications :Type 2 diabetes mellitus with hyperglycemia, with long-term current use of insulin ([facility]) Use to test blood sugar 2 times daily in case of CGM failure or extremes of BG 100 each 11 09/30 Discontinued( Reorder (will not trigger notification to [...] oxycodone 5mg Q8H PRN Indication: fibromyalgia Last [employer]CEL [employer] OFFICER Agreement: 01/09/24 Tier II (PARCEL POST OFFICER visits every 3 months) - last eval [...] AM EDT): Dr Radha Schulz (psychiatrist) phone [phone], is now taking over of her mental health and will take over her medications for mental health Diverticular disease 09/11/2023 Epigastric hernia 09/11/2023 Incisional hernia 09/11/2023 Osteoarthritis 09/11/2023 Assessment & Plan (10/11/2023 11:50 AM EDT): C/w PRN meds Patient will go to medical records for guidance for new FILM VAULT SUPERVISOR services Pain in both hands 08/27/2023 Assessment & Plan (10/11/2023 11:51 AM EDT): As above Class 2 severe obesity due t o excess calories with serious comorbidity in adult 05/29/2023 Assessment & Plan (05/16/2024 10:23 AM EDT): Discussed re weight reduction options including exercise, life style modifications, diet and referral to retail customer service specialist. Recommended to decrease soda and sugary [...] Assessment & Plan (10/11/2023 11:52 AM EDT): FILM VAULT SUPERVISOR services will be requested Assessment & Plan [...] pill count as expected Pt prefers individual [employer]CEL POST OFFICER appointments, will schedule with Benita Mahmood RN [...] Encounters Date Type Department Care Team Description 10/19/2024 Refill [facility] [address] [place] [address] Virginie Monet MD Essential hypertension 10/14/2024 Refill [facility] [address] [facility], [place] [phone] Virginie Monet MD Type 2 diabetes mellitus with hyperglycemia, without long-term current use of insulin ([facility]) 10/14/2024 Travel 10/13/2024 Telephone [facility] [address] [place] [address] Siria English RN Results 10/13/2024 Travel 09/26/2024 Refill [facility] [address] [place] [phone] Virginie Monet MD Chronic bilateral low back pain without sciatica 09/22/2024 Orders Only GENERIC EXTERNAL DATA DEPARTMENT Provider, Generic External Data 09/17/[address] [address] Virginie Monet MD FILM VAULT SUPERVISOR 09/16/2024 10:45 AM EST Office Visit [address] [address] Virginie Monet MD Essential hypertension (Primary Dx); Type 2 diabetes mellitus without complication, without long-term current use of insulin ([facility]); Type 2 diabetes mellitus with hyperglycemia, with long-term current use of insulin ([facility]); Tear of meniscus of left knee as current injury, unspecified meniscus, unspecified tear type, initial encounter 09/16/2024 Refill [facility] [address] [place] [phone] Virginie Monet MD Type 2 diabetes mellitus with hyperglycemia, with long-term current use of insulin ([facility]) 09/16/2024 Travel 09/09/2024 9:45 AM EST Office Visit [address] [address] Racheal Flynn FNP Fibromyalgia (Primary Dx); Long-term current use of opiate analgesic; Acute meniscal tear of left knee, subsequent encounter 09/09/2024 Telephone [facility] [address] [place] [address] Racheal Flynn FNP [employer] OFFICER Tier 09/09/2024 Travel 08/29/2024 Refill [facility] [address] [place] [address] Virginie Monet MD Depression, unspecified depression type 08/27/2024 Refill [facility] [address] [place] [phone] Virginie Monet MD Chronic bilateral low back pain without sciatica 08/26/2024 Refill [facility] [address] [place] [address] Virginie Monet MD Prediabetes 08/12/2024 9:45 AM EST Office Visit [facility] [address] [place] [address] Racheal Flynn, DESTINY Fibromyalgia (Primary Dx); Long-term current use of opiate analgesic 08/12/2024 Travel 08/05/2024 Refill [facility] [address] [place] [address] Virginie Monet MD 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 Orders Only [facility] External Provider, [facility] 08/01/2024 Refill [facility] [address] [place], [place] [phone] Virginie Monet MD Essential hypertension 07/30/2024 Refill [facility] [address] [place], [place] [phone] Virginie Monet MD Chronic bilateral low back pain without sciatica 07/28/2024 Telephone [facility] [address] [place], [place] [phone] Virginie Monet MD Appointment Request from Last 3 Months Immunizations Name Administration [...] 9:45 AM EDT Office Visit [facility] [address] [place] [address] 12/18/2024 9:00 AM EDT Office Visit [facility] [address] [place] [address] Virginie Monet MD [address] [place] [address] Health Maintenance Due Date Last Done Comments CT Colonography 1965 FIT DNA/Cologuard 1965 FIT 1965 FOBT [...] Screening 08/21/2024 08/21/2023 Diabetes: Hemoglobin A1C 12/17/2024 032 025, 04/08/2024, 12/31/2023, Additional history exists Mammogram 12/31/2024 01/01/2024, 12/14, 01/01/2023, Additional history exists Diabetes: Urine Protein Screening 04/22/2025 04/22/2024, 12/28/2023, 08/27/2023, Additional history exists Lipid Panel 04/22/2025 04/22/2024, 02/02/2023 Depression Screening 09/16/2025 09/16/2024, 09/17/19 Tobacco Screening 09/16/2025 09/16/2024 Colonoscopy 01/31/2027 01/31/2017 Colorectal Cancer Screening 01/31/2027 RSV Patients and Patients Aged 60 years [...] Procedure Name Priority Date/Time Associated Diagnosis Comments GLUCOSE, WHOLE BLOOD Routine 09/22/2024 7:09 AM EDT POCT GLYCATED HEMOGLOBIN, TOTAL Routine 09/16/2024 10:52 AM EST Type 2 diabetes mellitus without complication, without long-term current use of insulin ([facility]) Type 2 diabetes mellitus with hyperglycemia, with long-term current use of insulin ([facility]) POCT GLUCOSE Routine 09/16/2024 10:52 AM EST Type 2 diabetes mellitus without complication, without long-term current use of insulin ([facility]) Type 2 diabetes mellitus with hyperglycemia, with long-term current use of insulin ([facility]) POCT AIMEE-14 URINE DRUG SCREEN Routine 09/09/2024 [...] PAP SMEAR Routine 02/27/2018 12:00 AM EDT HM COLONOSCOPY Routine 01/31/2017 from Last 3 Months or Most Recently Relevant to Health Maintenance Results * (ABNORMAL) Glucose, Whole Blood (09/22/2024 7:09 AM EDT) Glucose, Whole Blood 204(H) 60 - 115 mg/dL [facility] Comment:METER #: [id number] 09/22/2024 7:09 AM EDT 09/22/2024 7:14 AM EDT Generic External Data Provider LAB BLOOD ORDERAB LES Final Result [facility] [address] [place] [phone] * (ABNORMAL) POCT HGB A1C (09/16/2024 10:52 [...] - 09/09/2024 1:39 PM EST UTOX cup Lot#[id number] Exp. 03/04/26 Internal Pass Control Racheal Flynn GROUP SALES COORDINATOR POINT OF CARE TEST ENTER/EDIT ORDERABLES Final Result * MR Knee w/o Contrast Left (08/02/2024 8:54 AM EST) Anatomical Region Laterality Modality Magnetic Resonan ce 08/02/2024 8:54 AM EST Narrative 08/02/2024 8:56 AM EST ? [facility] ?[address] ?[place], [place] [address] ? Magnetic Resonance Report ? Signed ? Patient: Martins,Anastasia ?MR#: [id number] ?? 07 ? : 1965 ?Acct:[id number] ? Age/Sex: 58 / F ?ADM Date: 08/01/24 ? Loc: HO.MRI ? Attending Dr: Pete Varela MD ? Ordering Physician: Pete Varela MD ?? Date of Service: 08/01/24 ?? Procedure(s): MR knee LT wo con ?? Accession Number(s): [id number] ? cc: Virginie Monet MD; Pete Varela [...] DD/ 0854 ? TD/TT: 08/02/24 0854 ? Clinical Program Director: ? Procedure Note Mauricio Ribeiro - 08/02/[address] [place] [address] Magnetic Resonance Report Signed Patient: Virginie Martins AMR#: [id number] [birth year] : 1965Acct:[id number] Age/Sex: 58 / FADM Date: 08/01/24 Loc: HO.MRI Attending Dr: Pete Varela MD Ordering Physician: Pete Varela MD Date of Service: 08/01/24 Procedure(s): MR knee LT wo con Accession Number(s): [id number] cc: Virginie Monet MD; Pete Varela MD [...] signed by Landon Steele MD in OV> 08/02/2455 DD/ TD/TT: 08/02/24853 Clinical Program Director: [facility] External Provider IMG MRI PROCEDURES Final Result * Lipid Panel with Reflex to Direct LDL (04/22/2024 9:30 AM EDT) Triglycerides 149 <150 mg/dL [facility] Comment:Desirable Triglyceri de: less than 150 mg/dLBorderline High Triglyceride 150-199 mg/dLHigh Triglyceride: 200-499 mg/dLVery High Triglyceride: greater than or equal to 5OO mg/dL Cholesterol 154 <200 mg/dL [facility] Comment:Desirable Cholestero l: less than 200 mg/dLBorderline High Cholesterol: 200-239 mg/dLHigh Cholesterol: greater than 239 mg/dL LDL Cholesterol Calculated 79 <100 mg/dL [facility] Comment:Desirable LDL: less than 100 mg/dLNear Optimal/Above Optimal LDL: 110- 129 mg/dLBorderline High LDL: 130-159 mg/dLHigh LDL: 160-189 mg/dLVery High LDL: greater than or equal to 190 mg/dL HDL Cholesterol 46 >40 mg/dL [facility] Comment:Desirable HDL: great er than 40 mg/dL Note: This HDL assay may give artificially low results in patients with liver disease. Blood 04/22/2024 9:30 AM EDT 04/22/2024 11:35 AM EDT Virginie Lopez MD LAB BLOOD ORDERABLES Final Result Performing Organization Address [facility] de Phone Number [facility] [address] [place] [phone] * Hepatitis C Viral RNA, Quantitative, Real-Time PCR (04/22/2024 9:30 AM EDT) Pathologist [facility] Hepatitis C Viral Load <15 NOT DETECTED NOT DETECTED IU/mL [facility] HCV Log PCR <1.18 NOT DETECTED NOT DETECTED Log IU/mL [facility] Comment:For additional infor mation, please refer tohttp://education.Conviva/faq/GPP83c3(This link is being provided for informational/educational purposes only.)THIS TEST WAS PERFORMED AT:[facility] [place] [phone] PERRY MD Blood 04/22/2024 9:30 AM EDT 04/22/2024 11:35 AM EDT us Virginie Lopez MD LAB BLOOD ORDERABLES Final Result Performing Organization Address [facility] de Phone Number [facility] [address] [place] [phone] * Albumin, Random Urine W/Creatinine (04/22/2024 9:30 AM EDT) Pathologist [facility] Creatinine, Urine 193.55 mg/dL [facility] Microalbumin Urine 16.0 mg/L [facility] Microalbum Creatinine Ratio Ur 8.2 <30 ug/mg cr [facility] Comment:Albumin/Creatinine R atio Reference Ranges: Normal: < 30 ug/mg creatinine Microalbuminuria: 30 - 300 ug/mg creatinineClinical Albuminuria: > 300 ug/mg creatinine Urine (Urine, Random) 04/22/2024 9:30 AM EDT 04/22/2024 11:23 AM EDT us Virginie Lopez MD LAB URINE ORDERABLES Final Result Performing Organization Address [facility] Co de Phone Number [facility] [address] [place] [phone] * HIV-1/2 Antigen and Antibodies, Fourth Generation, with Reflexes (04/22/2024 9:30 AM EDT) HIV AB/AG Nonreactive Nonreactive [facility] Comment:HIV-1 p24 Ag and/or HIV-1/HIV-2 Ab not detected.A test result that is nonreactive does not exclude thepossibility of exposure to or infection with HIV-1 and/orHIV-2. Nonreactive results in this assay for individualswith prior exposure to HIV-1 and/or HIV-2 may be due toantigen and antibody levels that are below the limit ofdetection of this assay.The [employer] HIV Ag/Ab Combo assay result andsupplemental assay results should be interpreted inconjunction with the patient's clinical presentation,history and other laboratory results. If the results areinconsistent with clinical evidence, additional testing issuggested to confirm the result. Blood Venous blood specimen / Unknown 04/22/2024 9:30 AM EDT 04/22/2024 11:35 AM EDT us Virginie Lopez MD LAB BLOOD ORDERABLES Final Result Performing Organization Address City/[facility]/ZIP Co de Phone Number [facility] [address] [place], [place] [address], [place] [phone] * BI Mammogram Screening Tomosynthesis Bilateral (01/01/2024 8:00 AM EDT) Anatomical Region Laterality Modality Breast Bilateral Mammography 01/01/2024 8:00 AM EDT Narrative 01/29/2024 3:53 PM EDT ? [place] [facility] ? [address] ?[place] [address] ? Mammography Report ? Signed ? Patient: Martins,Anastasia ?MR#: [id number] ?? 07 ? : 1965 ?Acct:[id number] ? Age/Sex: 58 / F ?ADM Date: 01/01/24 ? Loc: HO.MAMMO ? Attending Dr: Virginie Lopez MD ? Ordering Physician: Virginie Monet MD ?Results: ?? 1Negative ? Date of Service: 01/01/24 ?Follow Up: 1 Year From Orig ?? inal Mammogram ? Procedure(s): MM tomosynthesis screening BI ?? Accession Number(s): [id number] ? cc: Virginie Monet MD ? EXAMINATION: [...] 1549 ? DD/ 0800 ? TD/TT: ? Clinical Program Director: ? Procedure Note Mauricio Ribeiro - 01/29/[address] [place] [facility] [address] [place] [address] Mammography Report Signed Patient: Virginie Martins AMR#: [id number] [birth year] : 1965Acct:[id number] Age/Sex: 58 / FADM Date: 01/01/24 Loc: HO.MAMMO Attending Dr: Virginie Lopez MD Ordering Physician: Virginie Monet MDResults: 1Negative Date of Service: 01/01/24Follow Up: 1 Year From Orig inal Mammogram Procedure(s): MM tomosynthesis screening BI Accession Number(s): [id number] cc: Virginie Monet MD EXAMINATION: MM SCREENING [...] Morales MD Signed By: <Electronically signed by Rbeecca Morales MD in OV> 01/29/24 1549 DD/ 0800 TD/TT: Clinical Program Director: Virginie Lopez MD IMG BI PROCEDURES Fin al Result * HPV mRNA E6/E7 (02/27/2018 3:34 PM EDT) HPV mRNA E6/E7 Not Detected NOT DETECTED [facility] Comment: This test was performed using the APTIMA(R) HPV Assay ([employer] This assay detects E6/E7 viral messenger RNA (mRNA) from 14 high-risk HPV types (16,18,31,33,35,39,45,51, 52,56,58,59,66,68). For additional information please refer to: http://education.GLADvertising.com.SportID/faq/SXQ428g7 (This link is being provided for informational/ educational purposes only.) The analytical performance characteristics of this assay have been determined by [employer] [place], [place]. The modifications have not been cleared or approved by the FDA. This assay has been validated pursuant to the CLIA regulations and is used for clinical purposes. Test Performed by [facility], [address] [place] [address] Adriel Barclay M.D., Ph.D., Director of Laboratories , [facility] [id number] Please note: ??Effective 03/27/2016, HPV testing will be performed using [employer]'s APTIMA test which targets mRNA. Detecting mRNA instead of DNA, as in older methods, offers significant improvements in specificity. 02/27/2018 3:34 PM EDT Ela [facility] HISTORICAL/NON ORDERABLE LABS Final Result Performing Organization Address City/[facility]/ZIP Co de Phone Number [facility] [address] * Pap Smear (02/27/2018 12:00 AM EDT) Swab Ela [facility] LAB CYTOLOGY ORDERABLES F inal Result Performing Organization Address [facility] Co de Phone Number [facility] [address] [place] [phone] * Colonoscopy (01/31/2017) Colonoscopy Normal Normal Narrative Ashley Recio - 01/31/2017 Repeat colonoscopy in 10 years . Results are in [facility] 01/31/2017 Historical Provider MD HEALTH MAINTENANCE Final Result from Last 3 Months or Most Recently Relevant to Health Maintenance Insurance [facility] Care Teams Luster Repairer Relationship Specialty Start Date End Date Virginie Monet MD [address] [place] [phone] PCP - General Family Medicine 07/30/20
--- OUTSIDE RECORDS SUMMARY | 2024-10-22 18:37 | XMS_ITS | Encounter Summary ---
Author Organization [employer] Address [address] [facility] [address] 7t [place] [address] Care Team Providers Care Casting Repairer Name Role Phone Virginie Monet MD Primary Care Provide r Reason for Visit * Reason Onset Date Comments Nurse Triage 12/14/2023 Encounter Details Date Type Department Care Team ([facility] st Contact Info) Description 12/14/2023 Telephone [facility] [address] [place], [place] [phone] Virginie Monet MD 230 [place] [address] Nurse Triage Social History Tobacco Use Types [...] immediate release tablet To be sent to: [facility] documented in this encounter Plan of Treatment Upcoming Encounters Date Type Department Care Team (Late st Contact Info) Description 11/04/2024 9:45 AM EDT Office Visit [facility] [address] [place] [phone] 12/18/2024 9:00 AM EDT Office Visit [facility] [address] [place] [address] Virginie Monet MD [address] [place] [phone] documented as of this encounter Visit Diagnoses Diagnosis Chronic bilateral low back pain without sciatica documented in this encounter Additional Health Concerns Assessment Noted Time PHQ-9 Depression Total Score: 0 05/29/20 23 2:13 PM EST documented as of this encounter Care Teams Casting Repairer Relationship Specialty Start Date End Date Virginie Monet MD 230 [place] [address] PCP - General Family Medicine 07/30/20 documented as of this encounter
--- OUTSIDE RECORDS SUMMARY | 2024-10-22 18:37 | XMS_ITS | Encounter Summary ---
Author Organization [employer] Address [address] [facility] 7t [place] [address] Care Team Providers Care Combination Presser Name Role Phone Virginie Monet MD Primary Care Provide r Reason for Visit * Reason Onset Date Comments Appointment Request 02/05/2024 Encounter Details Date Type Department Care Team ([facility] Contact Info) Description 02/05/2024 Telephone [facility] 230 [place], [place] [phone] Virginie Monet MD 230 [place] [address] Appointment Request Social History Tobacco Use Types [...] Description 11/04/2024 9:45 AM EDT Office Visit [facility] [address] [place] [phone] 12/18/2024 9:00 AM EDT Office Visit [facility] [address] [place] [address] Virginie Monet MD [address] [place] [address] documented as of this encounter Visit Diagnoses Not on filedocumented in this encounter Additional Health Concerns Assessment Noted Time PHQ-9 Depression Total Score: 15 024 11:32 AM EDT documented as of this encounter Care Teams Combination Presser Relationship Specialty Start Date End Date Virginie Monet MD 230 [place] [address] PCP - General Family Medicine 07/30/20 documented as of this encounter
--- OUTSIDE RECORDS SUMMARY | 2024-10-22 18:37 | XMS_ITS | Encounter Summary ---
Author Organization [employer] Address [address] [facility] [address] 7t [place] [address] Care Team Providers Care Telephone Quotation Clerk Name Role Phone Virginie Monet MD Primary Care Provide r Encounter Details Date Type Department Care Team ([facility] Contact Info) Description 10/31/2023 Telephone [facility] 230 [place], [place] [phone] Virginie Monet MD 230 [place] [address] Social History Tobacco Use Types Packs/Day Years [...] 10/31/2023 11:32 AM EDT Faxed referral for [employer] services for Ry today, per patient request. documented in this encounter Plan of Treatment Upcoming Encounters Date Type Department Care Team (Late st Contact Info) Description 11/04/2024 9:45 AM EDT Office Visit [facility] [address] [place] [address] 12/18/2024 9:00 AM EDT Office Visit [facility] [address] [place] [phone] Virginie Monet MD [address] [place] [address] documented as of this encounter Visit Diagnoses Not on filedocumented in this encounter Additional Health Concerns Assessment Noted Time PHQ-9 Depression Total Score: 0 05/29/20 23 2:13 PM EST documented as of this encounter Care Teams Telephone Quotation Clerk Relationship Specialty Start Date End Date Virginie Monet MD [address] [place] [phone] PCP - General Family Medicine 07/30/20 documented as of this encounter
--- OUTSIDE RECORDS SUMMARY | 2024-10-22 18:37 | XMS_ITS | Encounter Summary ---
Author Organization [employer] Address [address] [facility] 7t [place] [address] Care Team Providers Care Telecommunications Engineer Name Role Phone Virginie Monet MD Primary Care Provide r Reason for Visit * Reason Onset Date Comments Med Refill 02/05/2023 Encounter Details Date Type Department Care Team ([facility] st Contact Info) Description 02/05/2023 Telephone [facility] 230 [place], [place] [phone] Virginie Monet MD 230 [place] [address] Med Refill Social History Tobacco Use Types [...] 9:45 AM EDT Office Visit [facility] [address] [place] [address] 12/18/2024 9:00 AM EDT Office Visit [facility] [address] [place] [phone] Virginie Monet MD [address] [place] [phone] documented as of this encounter Visit Diagnoses Not on filedocumented in this encounter Additional Health Concerns Assessment Noted Time PHQ-9 Depression Total Score: 0 11/15/19 23 9:09 AM EDT documented as of this encounter Care Teams Telecommunications Engineer Relationship Specialty Start Date End Date Virginie Monet MD [address] [place] [phone] PCP - General Family Medicine 07/30/20 documented as of this encounter
--- OUTSIDE RECORDS SUMMARY | 2024-10-22 18:37 | XMS_ITS | Data Portability ---
Author Organization [employer] Address [address] [place] [phone] Care Team Providers Care Rotary Cutter Operator Name Role Phone HIM CCA OTHER SHANKAR [...] Not Available Not Available No t Available [employer] Ultra Test strips USE DIRECTED TWICE DAILY [...] active Not Available Not Available Not Available [employer] COVID-19 Rapid At-Home kit TEST DIRECTED TODAY [...] SNOMED-CT Code Diagnosis ICD10 Code Diagnosis Note [id number] Bryce Rivera MD Main - instED [address] [place] [phone] 03/04/2024 20:21:06 03/04/2024 22:03:09 Headache [id number] R51.9 Reports a history of migraines, but [...] Wills Member ID Guarantor Name 03/04/2024 1 [facility] - DOS ON OR AFTER 2022 - DUAL ELIGIBLE - LONG TERM OPTIONS AND ONE CARE (MEDICARE REPLACEMENT/ADV ANTAGE - HMO) Shankar Martins [id number] Shankar Martins Notes Date Note Type Note Provider Name and Address Organization Details Recorded Time 03/04/2024 text/html [facility] Nurse Triage Notes (Racheal Pabon): Reason For Request: Pt reporting severe headache for 3 weeks>suffers from migraines and has taken medication with no improvements>162/90 BP Chief Complaints: Headache PMH: Hypertension, Other Allergies: No Known Pain Assessment: Level 10 out of 10 Comments: Signal Helper verified the member's name//address and phone number. [...] ................... ................... ................... ................... ................... ................... ........ Presetter Operator Note From Ho Joe: Dispatched to the [...] agreed to go by ambulance. 911 contacted [facility] on scene and [facility] took patient care. all times are approx.report completed by sarah joe ................... ................... ................... ................... ................... ................... ................... ........ Disposition: Fulfilled Bryce Rivera MD [address] [place] [address],[address], [place], [phone], [employer] 03/04/2024 21:30:34 OBGyn Episode No OBEpisode recorded.
--- OUTSIDE RECORDS SUMMARY | 2024-10-22 18:37 | XMS_ITS | Encounter Summary ---
Author Organization [employer] Address [address] [facility] [address] 7t [place] [address] Care Team Providers Care Alemite Operator Name Role Phone Virginie Monet MD Primary Care Provide r Reason for Visit * Reason Comments Med Refill Encounter Details Date Type Department Care Team ([facility] st Contact Info) Description 01/03/2024 Refill [facility] 230 [place], [place] [phone] Virginie Monet MD 230 [place], [place] [phone] Anxiety Social History Tobacco Use Types Packs/Day [...] Description 11/04/2024 9:45 AM EDT Office Visit [facility] [address] [place] [address] 12/18/2024 9:00 AM EDT Office Visit [address] [address] Virginie Monet MD [address] [place] [address] documented as of this encounter Visit Diagnoses Diagnosis Anxiety Anxiety state, unspecified documented in this encounter Additional Health Concerns Assessment Noted Time PHQ-9 Depression Total Score: 0 05/29/20 23 2:13 PM EST documented as of this encounter Care Teams Alemite Operator Relationship Specialty Start Date End Date Virginie Monet MD [address] [place] [phone] PCP - General Family Medicine 07/30/20 documented as of this encounter
--- OUTSIDE RECORDS SUMMARY | 2024-10-22 18:37 | XMS_ITS | Encounter Summary ---
Author Organization [employer] Address [address] [facility] 7t [place] [address] Care Team Providers Care Distributor Cleaner Name Role Phone Virginie Monet MD Primary Care Provide r Encounter Details Date Type Department Care Team ([facility] Contact Info) Description 08/23/[address] [facility] MED[facility]INE [address] [place] [address] [phone] Yolanda Rose DO [address] [place] [phone] Social History Tobacco Use Types Packs/Day Years [...] Department Care Team (Late Contact Info) Description 11/04/2024 9:45 AM EDT Office Visit [facility] [address] [place] [address] [phone] 12/18/2024 9:00 AM EDT Office Visit [facility] [address] [place] [address] [phone] Virginie Monet MD [address] [place] [address] [phone] documented as of this encounter Visit Diagnoses Not on filedocumented in this encounter Care Teams Distributor Cleaner Relationship Specialty Start Date End Date Virginie Monet MD 230 [place] [address] PCP - General Family Medicine 07/30/20 documented as of this encounter
--- OUTSIDE RECORDS SUMMARY | 2024-10-22 18:37 | XMS_ITS | Encounter Summary ---
Author Organization [employer] Address [address] [facility] 7t [place] [address] Care Team Providers Care Director Museum Or Zoo Name Role Phone Virginie Monet MD Primary Care Provide r Reason for Visit * Reason Onset Date Comments Referral 10/02/2022 Encounter Details Date Type Department Care Team ([facility] Contact Info) Description 10/02/2022 Telephone [facility] 230 [place], [place] [phone] Virginie Monet MD 230 [place] [address] Referral Social History Tobacco Use Types Packs/Day [...] 2:04 PM EDT Tc from Andreea Waller complex care nurse practitioner requesting a referral for occupational therapy evaluation for pt to be able to get a shower chair and electric lift chair . Please call to clarify at phone # [phone]. documented in this encounter Plan of Treatment Upcoming Encounters Date Type Department Care Team (Late st Contact Info) Description 11/04/2024 9:45 AM EDT Office Visit [address] [address] 12/18/2024 9:00 AM EDT Office Visit [address] [address] Virginie Monet MD [address] [place] [phone] documented as of this encounter Visit Diagnoses Not on filedocumented in this encounter Care Teams Director Museum Or Zoo Relationship Specialty Start Date End Date Virginie Monet MD [address] [place] [phone] PCP - General Family Medicine 07/30/20 documented as of this encounter
--- OUTSIDE RECORDS SUMMARY | 2024-10-22 18:37 | XMS_ITS | Encounter Summary ---
Author Organization [employer] Address [address] [facility] [address] 7t [place] [address] Care Team Providers Care Assortment Planner Name Role Phone Virginie Monet MD Primary Care Provide r Encounter Details Date Type Department Care Team ([facility] Contact Info) Description 10/12/2023 Orders Only [facility] MED[facility]INE 230 [place], [place] [phone] Virginie Monet MD 230 [place] [address] Social History Tobacco Use Types Packs/Day Years [...] 9:45 AM EDT Office Visit [facility] [address] [place] [address] 12/18/2024 9:00 AM EDT Office Visit [address] [address] Virginie Monet MD [address] [place] [address] documented as of this encounter Visit Diagnoses Not on filedocumented in this encounter Additional Health Concerns Assessment Noted Time PHQ-9 Depression Total Score: 0 05/29/20 23 2:13 PM EST documented as of this encounter Care Teams Assortment Planner Relationship Specialty Start Date End Date Virginie Monet MD [address] [place] [phone] PCP - General Family Medicine 07/30/20 documented as of this encounter
--- OUTSIDE RECORDS SUMMARY | 2024-10-22 18:37 | XMS_ITS | Encounter Summary ---
Author Organization [employer] Address 75 [facility] 7t [place] [address] Care Team Providers Care Foreign Languages Department Chair Name Role Phone Virginie Monet MD Primary Care Provide r Reason for Visit * Reason Onset Date Comments Med Refill 06/04/2024 Encounter Details Date Type Department Care Team ([facility] Contact Info) Description 06/04/2024 Telephone [facility] MEDICINE 230 [place], [place] [phone] Virginie Monet MD 230 [place] [address] Med Refill Social History Tobacco Use Types [...] immediate release tablet To be sent to: [id number] - [place], [place] - [address] [facility] documented in this encounter Plan of Treatment Upcoming Encounters Date Type Department Care Team (Late st Contact Info) Description 11/04/2024 9:45 AM EDT Office Visit [facility] MED[facility] [address] [place] [address] [phone] 12/18/2024 9:00 AM EDT Office Visit [facility] [address] [place] [address] Virginie Monet MD 230 [place] [address] documented as of this encounter Visit Diagnoses Not on filedocumented in this encounter Additional Health Concerns Assessment Noted Time PHQ-9 Depression Total Score: 15 024 11:32 AM EDT documented as of this encounter Care Teams Foreign Languages Department Chair Relationship Specialty Start Date End Date Virginie Monet MD 230 [place] [address] PCP - General Family Medicine 07/30/20 documented as of this encounter
[2024-10-22 18:41] LABS: MANUAL DIFF FLAG NO
[2024-10-22 18:44] LABS: Basophils Percent Auto 0.4 % (0-2); Eosinophils Absolute Auto 0.1 X10*3/uL (0.0-0.4); Eosinophils Percent Auto 2.1 % (0-4); Hematocrit 43.7 % (37.0-47.0); Hemoglobin 15.2 g/dl (12.0-16.0); Imm Gran Abs Auto 0.01 X10*3/uL (0.00-0.03); Imm Gran Pct Auto 0.1 % (0.0-0.4); Lymphocytes Absolute Auto 2.2 X10*3/uL (1.2-4.9); Mean Corpuscular HGB Conc 34.8 g/dl (31.0-35.0); Mean Corpuscular Hemoglobin 27.4 pg (27.0-33.0); Mean Corpuscular Volume 78.7 fL (80.0-98.0); Mean Platelet Volume 9.1 fL (9.4-12.3); Monocytes Absolute Auto 0.6 X10*3/uL (0.1-1.2); Monocytes Percent Auto 8.2 % (2-11); Neutrophils Absolute Auto 3.8 x10*3/uL (2.0-8.3); Neutrophils Percent Auto 56.2 % (45-73); Platelet Count 348 X10*3/uL (160-400); Red Blood Count 5.55 X10*6/uL (4.20-5.50); Red Cell Distribution Width 13.9 % (11.0-16.0); White Blood Count 6.7 X10*3/uL (4.8-10.8)
[2024-10-22 18:57] LABS: Lactic Acid 1.9 mmol/L (0.5-2.0)
[2024-10-22 18:58] LABS: Alanine Aminotransferase 59 U/L (0-31); Albumin Level 4.2 g/dL (3.5-5.0); Alkaline Phosphatase 126 U/L (39-117); Anion Gap 12 (12-20); Aspartate Amino Transferase 38 U/L (5-31); Bilirubin Total 0.4 mg/dL (0.0-1.0); Blood Urea Nitrogen 13 mg/dL (9-16); Carbon Dioxide 27 mmol/L (22-29); Chloride 106 mmol/L (96-108); Creatinine Clr Calc Pharmacy 112.2; Estimated Glomerular Filt Rate > 60; Glucose Random 161 mg/dL (60-115); Lipase 41 U/L (8-78); Potassium 3.5 mmol/L (3.3-5.1); Sodium 141 mmol/L (135-145); Total Protein 7.8 g/dL (6.5-8.0)
--- NOTE | 2024-10-22 19:21 | PC.NURSE ---
PT picked up by provider, pt notified the provider will see her shortly pt declined to stay. LWCT.
[2024-10-22 19:22] LABS: Influenza A PCR NEGATIVE (Negative); Influenza B PCR NEGATIVE (Negative); Resp Syncy Virus RNA Qual PCR NEGATIVE (Negative); SARS COV2 PCR INHOUSE NEGATIVE (Negative)
== END 2024-10-22 19:23 | disposition left against medical advice (07) ==
PROVIDERS: Physician Assistant; Emergency Provider Emergency Medicine; PCP Internal Medicine
DX: R10.11 Right upper quadrant pain (principal); R11.0 Nausea; F17.210 Nicotine dependence, cigarettes, uncomplicated; Z79.899 Other long term (current) drug therapy; Z03.818 Encounter for observation for suspected exposure to other biological agents ruled out
CPT/HCPCS: 0241U; 80053; 83605; 83690; 85025; 87040; 99283; 99284

== ENCOUNTER → 2024-10-23 07:15 | Outpatient (BNV) | payer OTHER, SELFPAY | PROVIDERS: PCP Internal Medicine; Visit Provider Radiology Diagnostic Radiology | DX: S83.241A Other tear of medial meniscus, current injury, right knee, initial encounter (principal) | CPT/HCPCS: 73721 ==

== ENCOUNTER 2024-10-23 07:19 | Outpatient (REF) | payer OTHER, SELFPAY ==
--- NOTE | ~2024-10-23 | MR_ITS ---
EXAMINATION: MR KNEE WITHOUT CONTRAST, RIGHT CLINICAL INFORMATION: Anterior right knee pain. Remote history of surgery for chondromalacia. COMPARISON: No prior MRI. Right knee plain films dated 12/28/2020. TECHNIQUE: MRI of the right knee without contrast was performed using routine sequences on a 1.5 Katya Siemens high-field scanner. FINDINGS: MENISCI: Medial Meniscus: Intact and normal in signal. Lateral Meniscus: Intact and normal in signal. LIGAMENTS: Anterior Cruciate: Intact and normal in signal. Posterior Cruciate: Intact and normal in signal. Medial Collateral: Intact and normal in signal. Lateral Collateral Complex: The biceps femoris tendon, conjoined tendon, fibular collateral ligament, and popliteus tendon are all intact and normal in signal. EXTENSOR MECHANISM: Intact and normal in signal. Incidental note made of increased T2 signal within the suprapatellar fat pad suggestive of fat pad impingement syndrome. PATELLAR RETINACULUM: Bilaterally intact. The medial patellofemoral ligament is intact. BONE: There is a focus of subchondral bone plate edema within the lateral inferior femoral trochlea, with a 6 x 4 mm overlying focus of full-thickness cartilage loss (osteochondral defect) (series 19, image 12; series 17, image 15). JOINTS/CARTILAGE: Medial Compartment: Mild osteoarthritis present. Minimal cartilaginous thinning and eburnation of the weightbearing medial femoral condyle. Medial compartment otherwise normal. Lateral Compartment: Minimal osteoarthritis present. Patellofemoral Compartment: Osteochondral defect in the inferolateral femoral trochlea as detailed above. Patellofemoral compartment otherwise normal. JOINT FLUID AND BURSAE: There is a very small joint effusion. There are no bursal abnormalities. OTHER: The popliteal fossa appears normal. The imaged musculature is normal in signal. MR/MR knee RT wo con IMPRESSION: 1. There is a 6 x 4 mm focus of full-thickness cartilage loss with underlying subchondral bone plate edema in the inferolateral aspect of the femoral trochlea. 2. There is increased signal in the suprapatellar fat pad suggestive of fat pad impingement syndrome. 3. The menisci and major ligamentous structures are intact. 4. Minimal medial and lateral compartment osteoarthritis. Electronically signed by: George Main MD 10/23/2024 08:18 AM EDT
--- OUTSIDE RECORDS SUMMARY | 2024-10-23 07:21 | XMS_ITS | Encounter Summary ---
Author Organization [employer] Address 75 [facility] 7t [place] [address] Care Team Providers Care Child Nurse Name Role Phone Virginie Monet MD Primary Care Provide r Encounter Details Date Type Department Care Team ([facility] Contact Info) Description 10/22/2024 Orders Only GENERIC EXTERNAL DATA DEPARTMENT Provider, Generic External Data Social History Tobacco Use Types Packs/Day Years [...] Upcoming Encounters Date Type Department Care Team ([facility] st Contact Info) Description 11/04/2024 9:45 AM EDT Office Visit [facility] MEDICINE [address] [place] [phone] 12/18/2024 9:00 AM EDT Office Visit [facility] MEDICINE [address] [place] [address] Virginie Monet MD [address] [place] [phone] documented as of this encounter Procedures Procedure Name Priority Date/Time Associated Diagnosis Comments SARS COV2/INFLUENZA A/B AND RSV RNA QL NAAT Routine 10/22/2024 6:35 PM EDT CBC WITH AUTO DIFFERENTIAL Routine 10/22/2024 6:35 PM EDT LIPASE Routine 10/22/2024 6:35 PM EDT LACTIC ACID Routine 10/22/2024 6:35 PM EDT COMPREHENSIVE METABOLIC PANEL Routine 10/22/2024 6:35 PM EDT documented in this encounter Results * SARS-CoV-2 RNA, Influenza A/B, and RSV RNA, Ql NAAT (10/22/2024 6:35 PM EDT) Influenza A PCR NEGATIVE Negative [facility] Influenza B PCR NEGATIVE Negative [facility] Resp Syncy Virus RNA Qual PCR NEGATIVE Negative [facility] SARS COV2 PCR NEGATIVE Negative [facility] Comment:All test results mus t be correlated with clinical findings.Negative results do not preclude SARS-CoV2, influenza Avirus, influenza B virus and/or RSV infectionand should not be used as the sole basis for treatment orother patient management decisions. Negative results must becombined with clinical observations, patient history, andepidemiological information.This test has not been evaluated for monitoring treatment ofinfection.This test has been authorized by the FDA under an EmergencyUse Authorization (EUA) for use by authorized laboratories.Testing performed on the [employer] GeneXpert utilizingreal-time RT-PCR.All SARS CoV2 and positive influenza A/B results arereported to [facility]. 10/22/2024 6:35 PM EDT 10/22/2024 6:39 PM EDT Generic External Data Provider LAB MICROBIOLOGY - GENERAL ORDERABLES Final Result Performing Organization Address [facility]/ZIP Co de Phone Number [facility] [address] [place] [phone] * Lipase (10/22/2024 6:35 PM EDT) Pathologist [facility] Lipase 41 8 - 78 U/L [facility] 10/22/2024 6:35 PM EDT 10/22/2024 6:39 PM EDT Generic External Data Provider LAB BLOOD ORDERAB LES Final Result Performing Organization Address [facility]/ZIP Co de Phone Number [facility] [address] [place] [phone] * (ABNORMAL) Comprehensive Metabolic Panel (10/22/2024 6:35 PM EDT) Pathologist [facility] Sodium 141 135 - 145 mmol/L [facility] Potassium 3.5 3.3 - 5.1 mmol/L [facility] Chloride 106 96 - 108 mmol/L [facility] Carbon Dioxide 27 22 - 29 mmol/L [facility] Anion Gap 12 12 - 20 [facility] Urea Nitrogen (BUN) 13 9 - 16 mg/dL [facility] Creatinine, Serum 0.66 0.5 - 1.4 mg/dL [facility] Creatinine Clr Calc Pharmacy 112.2 [facility] Comment:Provided height and weight: 170.18 cm,101.2 kg.eGFR (calculated from the MDRD study equation) and eCrCl(calculated from the Cockcroft-Gault equation) are based ondifferent parameters and may not yield comparable results.If eCrCl result is absurd, please check patient'sheight/weight. Estimated Glomerular Filt Rate >60 [facility] Comment:Chronic Kidney Disea se: Estimated GFR < 60 mL/min/1.85a1Cdhrrj Kidney Disease: Estimated GFR < 15 mL/min/1.73m2 Glucose 161(H) 60 - 115 mg/dL [facility] Calcium 10.0 8.4 - 10.2 mg/dL [facility] Bilirubin, Total 0.4 0.0 - 1.0 mg/dL [facility] Aspartate Amino Transferase 38(H) 5 - 31 U/L [facility] Alanine Aminotransferase 59(H) 0 - 31 U/L [facility] Total Protein 7.8 6.5 - 8.0 g/dL [facility] Albumin Level 4.2 3.5 - 5.0 g/dL [facility] Alkaline Phosphatase 126(H) 39 - 117 U/L [facility] 10/22/2024 6:35 PM EDT 10/22/2024 6:39 PM EDT us Generic External Data Provider LAB BLOOD ORDERAB LES Final Result [facility] [address] [place] [address] [phone] * Lactic Acid (10/22/2024 6:35 PM EDT) Pathologist [facility] Lactic Acid 1.9 0.5 - 2.0 mmol/L [facility] 10/22/2024 6:35 PM EDT 10/22/2024 6:39 PM EDT us Generic External Data Provider LAB BLOOD ORDERAB LES Final Result [facility] [address] [place] [phone] [phone] * (ABNORMAL) CBC auto differential (10/22/2024 6:35 PM EDT) [facility] White Blood Count 6.7 4.8 - 10.8 X10*3/uL [facility] Red Blood Count 5.55(H) 4.20 - 5.50 X10*6/uL [facility] Hemoglobin 15.2 12.0 - 16.0 g/dl [facility] Hematocrit 43.7 37.0 - 47.0 % [facility] Mean Corpuscular Volume 78.7(L) 80.0 - 98.0 fL [facility] Mean Corpuscular Hemoglobin 27.4 27.0 - 33.0 pg [facility] Mean Corpuscular HGB Conc 34.8 31.0 - 35.0 g/dl [facility] Red Cell Distribution Width 13.9 11.0 - 16.0 % [facility] Platelet Count 348 160 - 400 X10*3/uL [facility] Mean Platelet Volume 9.1(L) 9.4 - 12.3 fL [facility] Neutrophils Percent Auto 56.2 45 - 73 % [facility] Imm Gran Pct Auto 0.1 0.0 - 0.4 % [facility] Lymphocytes Percent Auto 33.0 20 - 40 % [facility] Monocytes Percent Auto 8.2 2 - 11 % [facility] Eosinophils Percent Auto 2.1 0 - 4 % [facility] Basophils Percent Auto 0.4 0 - 2 % [facility] NRBC Pct Auto 0.0 0.0 - 0.2 /100WBC [facility] Neutrophils Absolute Auto 3.8 2.0 - 8.3 x10*3/uL [facility] Imm Gran Abs Auto 0.01 0.00 - 0.03 X10*3/uL [facility] Lymphocytes Absolute Auto 2.2 1.2 - 4.9 X10*3/uL [facility] Monocytes Absolute Auto 0.6 0.1 - 1.2 X10*3/uL [facility] Eosinophils Absolute Auto 0.1 0.0 - 0.4 X10*3/uL [facility] Basophils Absolute Auto 0.0 0.0 - 0.2 X10*3/uL [facility] NRBC Abs Auto 0.000 0.0 - 0.012 X10*3/uL [facility] 10/22/2024 6:35 PM EDT 10/22/2024 6:39 PM EDT us Generic External Data Provider LAB BLOOD ORDERAB LES Final Result [facility] [address] [place] [address] [phone] documented in this encounter Visit Diagnoses Not on filedocumented in this encounter Additional Health Concerns Assessment Noted Time PHQ-9 Depression Total Score: 0 09/17/19 25 10:52 AM EST documented as of this encounter Care Teams Child Nurse Relationship Specialty Start Date End Date Virginie Monet MD [address] [place] [address] PCP - General Family Medicine 07/30/20 documented as of this encounter
--- OUTSIDE RECORDS SUMMARY | 2024-10-23 07:21 | XMS_ITS | Encounter Summary ---
Author Organization [employer] Address 75 [facility] 7t [place] [address] Care Team Providers Care Stage Director Name Role Phone Virginie Monet MD Primary Care Provide r Reason for Visit * Reason Onset Date Comments Med Refill 02/05/2023 Encounter Details Date Type Department Care Team ([facility] st Contact Info) Description 02/05/2023 Telephone [facility] 230 [place], [place] [phone] Virginie Monet MD 230 [place] [address] Med Refill Social History Tobacco Use Types [...] 9:45 AM EDT Office Visit [facility] [address] [place] [address] 12/18/2024 9:00 AM EDT Office Visit [facility] [address] [place] [address] Virginie Monet MD [address] [place] [address] documented as of this encounter Visit Diagnoses Not on filedocumented in this encounter Additional Health Concerns Assessment Noted Time PHQ-9 Depression Total Score: 0 11/15/19 23 9:09 AM EDT documented as of this encounter Care Teams Stage Director Relationship Specialty Start Date End Date Virginie Monet MD [address] [place] [address] PCP - General Family Medicine 07/30/20 documented as of this encounter
--- OUTSIDE RECORDS SUMMARY | 2024-10-23 07:21 | XMS_ITS | Encounter Summary ---
Author Organization [employer] Address [address] [facility] [address] 7t [place] [address] Care Team Providers Care Building Insulation Installer Name Role Phone Virginie Monet MD Primary Care Provide r Reason for Visit * Reason Comments Med Refill Encounter Details Date Type Department Care Team ([facility] st Contact Info) Description 10/19/2024 Refill [facility] 230 [place], [place] [phone] Virginie Monet MD 230 [place], [place] [phone] Essential hypertension Social History Tobacco Use Types [...] 9:45 AM EDT Office Visit [facility] [address] [place] [address] 12/18/2024 9:00 AM EDT Office Visit [address] [address] Virginie Monet MD 230 [place] [address] documented as of this encounter Visit Diagnoses Diagnosis Essential hypertension Unspecified essential hypertension documented in this encounter Additional Health Concerns Assessment Noted Time PHQ-9 Depression Total Score: 0 09/17/19 25 10:52 AM EST documented as of this encounter Care Teams Building Insulation Installer Relationship Specialty Start Date End Date Virginie Monet MD [address] [place] [address] PCP - General Family Medicine 07/30/20 documented as of this encounter
--- OUTSIDE RECORDS SUMMARY | 2024-10-23 07:21 | XMS_ITS | Encounter Summary ---
Author Organization [employer] Address [address] [facility] [address] 7t [place] [address] Care Team Providers Care Regulatory Scientist Name Role Phone Virginie Monet MD Primary Care Provide r Encounter Details Date Type Department Care Team ([facility] Contact Info) Description 05/19/2024 Orders Only [facility] 230 [place], [place] [phone] Virginie Monet MD 230 [place], [place] [phone] Social History Tobacco Use Types Packs/Day Years [...] Description 11/04/2024 9:45 AM EDT Office Visit [facility] [address] [place] [address] 12/18/2024 9:00 AM EDT Office Visit [address] [address] Virginie Monet MD [address] [place] [address] documented as of this encounter Visit Diagnoses Not on filedocumented in this encounter Additional Health Concerns Assessment Noted Time PHQ-9 Depression Total Score: 15 024 11:32 AM EDT documented as of this encounter Care Teams Regulatory Scientist Relationship Specialty Start Date End Date Virginie Monet MD [address] [place] [place] [address] PCP - General Family Medicine 07/30/20 documented as of this encounter
--- OUTSIDE RECORDS SUMMARY | 2024-10-23 07:21 | XMS_ITS | Encounter Summary ---
Author Organization [employer] Address 75 [facility] 7t [place] [address] Care Team Providers Care Medical Office Secretary Name Role Phone Virginie Monet MD Primary Care Provide r Reason for Visit * Reason Onset Date Comments Appointment Request 02/05/2024 Encounter Details Date Type Department Care Team ([facility] Contact Info) Description 02/05/[address] [facility] MEDICINE 230 [place], [place] [phone] Virginie Monet MD 230 [place] [address] Appointment Request Social History Tobacco Use Types [...] Visit [facility] [address] [place] [address] 12/18/2024 9:00 AM EDT Office Visit [facility] [address] [place] [address] Virginie Monet MD [address] [place] [address] documented as of this encounter Visit Diagnoses Not on filedocumented in this encounter Additional Health Concerns Assessment Noted Time PHQ-9 Depression Total Score: 15 024 11:32 AM EDT documented as of this encounter Care Teams Medical Office Secretary Relationship Specialty Start Date End Date Virginie Monet MD 230 [place] [address] PCP - General Family Medicine 07/30/20 documented as of this encounter
--- OUTSIDE RECORDS SUMMARY | 2024-10-23 07:21 | XMS_ITS | Encounter Summary ---
Author Organization [employer] Address [address] [facility] [address] 7t [place] [address] Care Team Providers Care Job Captain Name Role Phone Virginie Monet MD Primary Care Provide r Reason for Visit * Reason Onset Date Comments Nurse Triage 12/14/2023 Encounter Details Date Type Department Care Team ([facility] st Contact Info) Description 12/14/2023 Telephone [facility]INE 230 [place], [place] [phone] Virginie Monet MD 230 [place] [address] Nurse Triage Social History Tobacco Use Types [...] immediate release tablet To be sent to: [facility] documented in this encounter Plan of Treatment Upcoming Encounters Date Type Department Care Team (Late st Contact Info) Description 11/04/2024 9:45 AM EDT Office Visit [facility] [address] [place] [address] 12/18/2024 9:00 AM EDT Office Visit [facility] [address] [place] [address] Virginie Monet MD [address] [place] [address] documented as of this encounter Visit Diagnoses Diagnosis Chronic bilateral low back pain without sciatica documented in this encounter Additional Health Concerns Assessment Noted Time PHQ-9 Depression Total Score: 0 05/29/20 23 2:13 PM EST documented as of this encounter Care Teams Job Captain Relationship Specialty Start Date End Date Virginie Monet MD 230 [place] [address] PCP - General Family Medicine 07/30/20 documented as of this encounter
--- OUTSIDE RECORDS SUMMARY | 2024-10-23 07:21 | XMS_ITS | Encounter Summary ---
Author Organization [email or web address] Address 75 [facility] 7t [place] [address] Care Team Providers Care Data Keyer Name Role Phone Virginie Monet MD Primary Care Provide r Reason for Visit * Reason Onset Date Comments Referral 10/02/2022 Encounter Details Date Type Department Care Team ([facility] Contact Info) Description 10/02/2022 Telephone [facility] 230 [place], [place] [phone] Virginie Monet MD 230 [place] [address] Referral Social History Tobacco Use Types Packs/Day [...] PM EDT Tc from Andreea Waller care manager requesting a referral for occupational therapy evaluation for pt to be able to get a shower chair and electric lift chair . Please call to clarify at phone # [phone]. documented in this encounter Plan of Treatment Upcoming Encounters Date Type Department Care Team (Late st Contact Info) Description 11/04/2024 9:45 AM EDT Office Visit [address] [address] 12/18/2024 9:00 AM EDT Office Visit [address] [address] Virginie Monet MD [address] [place] [address] documented as of this encounter Visit Diagnoses Not on filedocumented in this encounter Care Teams Data Keyer Relationship Specialty Start Date End Date Virginie Monet MD [address] [place] [address] PCP - General Family Medicine 07/30/20 documented as of this encounter
--- OUTSIDE RECORDS SUMMARY | 2024-10-23 07:21 | XMS_ITS | Encounter Summary ---
Author Organization [employer] Address 75 [facility] 7t [place] [address] Care Team Providers Care Infant Lead Teacher Name Role Phone Virginie Monet MD Primary Care Provide r Reason for Visit * Reason Onset Date Comments Med Refill 06/04/2024 Encounter Details Date Type Department Care Team ([facility] Contact Info) Description 06/04/2024 Telephone [facility] MEDICINE 230 [place], [place] [phone] Virginie Monet MD 230 [place] [address] Med Refill Social History Tobacco Use Types [...] immediate release tablet To be sent to: [id number] - [place], [place] - [facility] documented in this encounter Plan of Treatment Upcoming Encounters Date Type Department Care Team (Late st Contact Info) Description 11/04/2024 9:45 AM EDT Office Visit [facility] MEDICINE [address] [place] [address] [phone] 12/18/2024 9:00 AM EDT Office Visit [facility] MED[facility]INE [address] [place] [address] Virginie Monet MD 230 [place] [address] documented as of this encounter Visit Diagnoses Not on filedocumented in this encounter Additional Health Concerns Assessment Noted Time PHQ-9 Depression Total Score: 15 024 11:32 AM EDT documented as of this encounter Care Teams Infant Lead Teacher Relationship Specialty Start Date End Date Virginie Monet MD 230 [place] [address] PCP - General Family Medicine 07/30/20 documented as of this encounter
--- OUTSIDE RECORDS SUMMARY | 2024-10-23 07:21 | XMS_ITS | Encounter Summary ---
Author Organization [employer] Address [address] [facility] [address] 7t [place] [address] Care Team Providers Care Video Control Engineer Name Role Phone Virginie Monet MD Primary Care Provide r Reason for Visit * Reason Comments Med Refill Encounter Details Date Type Department Care Team ([facility] st Contact Info) Description 01/22/[address] [facility] MEDICINE 230 [place], [place] [phone] Virginie Monet MD 230 [place], [place] [phone] Anxiety Social History Tobacco Use Types Packs/Day [...] 11/04/2024 9:45 AM EDT Office Visit [facility] MEDICINE [address] [place] [address] 12/18/2024 9:00 AM EDT Office Visit [address] [address] Virginie Monet MD [address] [place] [address] documented as of this encounter Visit Diagnoses Diagnosis Anxiety Anxiety state, unspecified documented in this encounter Additional Health Concerns Assessment Noted Time PHQ-9 Depression Total Score: 15 024 11:32 AM EDT documented as of this encounter Care Teams Video Control Engineer Relationship Specialty Start Date End Date Virginie Monet MD [address] [place] [address] PCP - General Family Medicine 07/30/20 documented as of this encounter
--- OUTSIDE RECORDS SUMMARY | 2024-10-23 07:21 | XMS_ITS | Encounter Summary ---
Author Organization [employer] Address [address] [facility] [address] 7t [place] [address] Care Team Providers Care Naprapath Name Role Phone Virginie Monet MD Primary Care Provide r Encounter Details Date Type Department Care Team ([facility] Contact Info) Description 10/12/2023 Orders Only [facility]INE 230 [place], [place] [phone] Virginie Monet MD 230 [place] [address] Social History Tobacco Use Types Packs/Day Years [...] Description 11/04/2024 9:45 AM EDT Office Visit [facility] [address] [place] [address] 12/18/2024 9:00 AM EDT Office Visit [address] [address] Virginie Monet MD [address] [place] [address] documented as of this encounter Visit Diagnoses Not on filedocumented in this encounter Additional Health Concerns Assessment Noted Time PHQ-9 Depression Total Score: 0 05/29/20 23 2:13 PM EST documented as of this encounter Care Teams Naprapath Relationship Specialty Start Date End Date Virginie Monet MD [address] [place] [address] PCP - General Family Medicine 07/30/20 documented as of this encounter
--- OUTSIDE RECORDS SUMMARY | 2024-10-23 07:21 | XMS_ITS | Encounter Summary ---
Author Organization [employer] Address 75 [facility] 7t [place] [address] Care Team Providers Care Bilingual Administrative Assistant Name Role Phone Virginie Monet MD Primary Care Provide r Encounter Details Date Type Department Care Team ([facility] Contact Info) Description 08/23/2022 Orders Only [facility] [address] [place] [address] [phone] Yolanda Rose DO [address] [place] [address] Social History Tobacco Use Types Packs/Day Years [...] Description 11/04/2024 9:45 AM EDT Office Visit [facility] [address] [place] [address] [phone] 12/18/2024 9:00 AM EDT Office Visit [facility] [address] [place] [address] [phone] Virginie Monet MD [address] [place] [address] [phone] documented as of this encounter Visit Diagnoses Not on filedocumented in this encounter Care Teams Bilingual Administrative Assistant Relationship Specialty Start Date End Date Virginie Monet MD 230 [place] [address] PCP - General Family Medicine 07/30/20 documented as of this encounter
--- OUTSIDE RECORDS SUMMARY | 2024-10-23 07:21 | XMS_ITS | Encounter Summary ---
Author Organization [employer] Address [address] [facility] [address] 7t [place] [address] Care Team Providers Care Supervisor Mechanic Boilermaking Name Role Phone Virginie oMnet MD Primary Care Provide r Reason for Visit * Reason Comments Med Refill Encounter Details Date Type Department Care Team ([facility] st Contact Info) Description 01/03/2024 Refill [facility] MEDICINE 230 [place], [place] [phone] Virginie Monet MD 230 [place], [place] [phone] Anxiety Social History Tobacco Use Types Packs/Day [...] Description 11/04/2024 9:45 AM EDT Office Visit [facility] [address] [place] [address] 12/18/2024 9:00 AM EDT Office Visit [address] [address] Virginie Monet MD [address] [place] [address] documented as of this encounter Visit Diagnoses Diagnosis Anxiety Anxiety state, unspecified documented in this encounter Additional Health Concerns Assessment Noted Time PHQ-9 Depression Total Score: 0 05/29/20 23 2:13 PM EST documented as of this encounter Care Teams Supervisor Mechanic Boilermaking Relationship Specialty Start Date End Date Virginie Monet MD [address] [place] [address] PCP - General Family Medicine 07/30/20 documented as of this encounter
--- OUTSIDE RECORDS SUMMARY | 2024-10-23 07:21 | XMS_ITS | Encounter Summary ---
Author Organization [employer] Address 75 [facility] [address] 7t [place] [address] Care Team Providers Care Shellfish Shucker Name Role Phone Virginie Monet MD Primary Care Provide r Encounter Details Date Type Department Care Team ([facility] Contact Info) Description 10/31/2023 Telephone [facility] MEDICINE 230 [place], [place] [phone] Virginie Monet MD 230 [place] [address] Social History Tobacco Use Types Packs/Day Years [...] 10/31/2023 11:32 AM EDT Faxed referral for BUCKLE INSPECTOR services for Ry today, per patient request. documented in this encounter Plan of Treatment Upcoming Encounters Date Type Department Care Team (Late st Contact Info) Description 11/04/2024 9:45 AM EDT Office Visit [facility] MEDICINE [address] [place] [address] 12/18/2024 9:00 AM EDT Office Visit [facility] MEDICINE [address] [place] [address] Virginie Monet MD [address] [place] [address] documented as of this encounter Visit Diagnoses Not on filedocumented in this encounter Additional Health Concerns Assessment Noted Time PHQ-9 Depression Total Score: 0 05/29/20 23 2:13 PM EST documented as of this encounter Care Teams Shellfish Shucker Relationship Specialty Start Date End Date Virginie Monet MD [address] [place] [address] PCP - General Family Medicine 07/30/20 documented as of this encounter
--- OUTSIDE RECORDS SUMMARY | 2024-10-23 07:22 | XMS_ITS | Encounter Summary ---
Author Organization [employer] Address 75 [facility] 7t [place] [address] Care Team Providers Care Material Specialist Name Role Phone Virginie Monet MD Primary Care Provide r Reason for Visit * Reason Onset Date Comments GAS SCRUBBER OPERATOR 09/17/2024 Encounter Details Date Type Department Care Team ([facility] Contact Info) Description 09/17/2024 Telephone [facility] MEDICINE 230 [place], [place] [phone] Virginie Monet MD 230 [place] [address] GAS SCRUBBER OPERATOR Social History Tobacco Use Types Packs/Day Years [...] she filled out paper work for more GAS SCRUBBER OPERATOR 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 Contact pt at [phone] documented in this encounter Plan of Treatment Upcoming Encounters Date Type Department Care Team (Late st Contact Info) Description 11/04/2024 9:45 AM EDT Office Visit [facility] MED[facility] [address] [place] [address] 12/18/2024 9:00 AM EDT Office Visit [facility] [address] [place] [address] Virginie Monet MD 230 [place] [address] documented as of this encounter Visit Diagnoses Not on filedocumented in this encounter Additional Health Concerns Assessment Noted Time PHQ-9 Depression Total Score: 0 09/17/19 25 10:52 AM EST documented as of this encounter Care Teams Material Specialist Relationship Specialty Start Date End Date Virginie Monet MD 230 [place] [address] PCP - General Family Medicine 07/30/20 documented as of this encounter
--- OUTSIDE RECORDS SUMMARY | 2024-10-23 07:22 | XMS_ITS | Encounter Summary ---
Author Organization [employer] Address [address] [facility] [address] 7t [place] [address] Care Team Providers Care Wholesale Parts Salesperson Name Role Phone Virginie Monet MD Primary Care Provide r Reason for Visit * Reason Onset Date Comments Appointment Request 06/25/2023 Encounter Details Date Type Department Care Team ([facility] Contact Info) Description 06/25/2023 Telephone [facility] MEDICINE 230 [place], [place] [phone] Virginie Monet MD 230 [place] [address] Appointment Request Social History Tobacco Use Types [...] call back to r/s appt on 06/25 story writer did cancel appt per patient request documented in this encounter Plan of Treatment Upcoming Encounters Date Type Department Care Team (Late st Contact Info) Description 11/04/2024 9:45 AM EDT Office Visit [facility] MEDICINE [address] [place] [address] 12/18/2024 9:00 AM EDT Office Visit [facility]INE [address] [place] [address] Virginie Monet MD [address] [place] [address] documented as of this encounter Visit Diagnoses Not on filedocumented in this encounter Additional Health Concerns Assessment Noted Time PHQ-9 Depression Total Score: 0 05/29/20 23 2:13 PM EST documented as of this encounter Care Teams Wholesale Parts Salesperson Relationship Specialty Start Date End Date Virginie Monet MD 230 [place] [address] PCP - General Family Medicine 07/30/20 documented as of this encounter
--- OUTSIDE RECORDS SUMMARY | 2024-10-23 07:22 | XMS_ITS | Clinical Summary ---
Author Organization [facility] Address [address] [place] [address] Care Team Providers Care Bucket Turner Name Role Phone Unavailable Primary Care Provider [...]
--- OUTSIDE RECORDS SUMMARY | 2024-10-23 07:22 | XMS_ITS | Clinical Summary ---
Author Organization [employer] Address [address] [facility] [address] [place] [address] Care Team Providers Care Cylinder Grinder Name Role Phone Virginie Monet MD Primary [...] spray into affected nostril(s) See administration instructions. [place] Ari 1 spray by intranasal route once; if [...] current use of insulin ([facility]) Use 1 sensor every 14 days per package directions 2 each 2022 Active Continuous Blood Gluc Home Care Associate (FreeStyle Shane 2 [place]) deviceIndication s:Type 2 diabetes mellitus without complication, without long-term current use of insulin ([facility]) Use reader for CGM per package directions [...] AND AT BEDTIME DIRECTED 2023 Active Lancets (VaccsysTouch Delica Plus [id number]) miscIndications: Type 2 diabetes mellitus with hyperglycemia, without long-term current use of insulin ([facility]) USE DIRECTED TWICE DAILY 100 each 11 2023 Active OneTouch Ultra Test test stripIndications :Type 2 diabetes mellitus with hyperglycemia, without long-term current use of insulin ([facility]) USE DIRECTED TWICE DAILY 100 strip 11 [...] current use of insulin ([facility]) Check blood sugar before 1 meal ( [...] current use of insulin ([facility]) Inject 1 mg under the skin 1 (one) time per week. 2 each 3 2024 Active oxyCODONE (Roxicodone) 5 MG immediate release tabletIndication s:Chronic bilateral low back pain without sciatica Take 1 tablet (5 mg) by mouth every 8 (eight) hours if needed for severe pain for up to 28 days. 84 tablet 10/24 Active Continuous Glucose Home Care Associate (FreeStyle Shane 3 [place]) deviceIndication s:Type 2 diabetes mellitus with hyperglycemia, [...] hyperglycemia, with long-term current use of insulin ([facility]) Use to test blood sugar 2 times [...] current use of insulin ([facility]) ADMINISTER ONCE A DAY WITH 1 MEAL, [...] not trigger notification to Pharmacy)) Continuous Glucose Home Care Associate (FreeStyle Shane 3 [place]) deviceIndication s:Type 2 diabetes mellitus with hyperglycemia, with long-term current use of insulin ([facility]) 1 each Once per day. Use as directed for CGM 1 each 09/30 Discontinued( Reorder (will not trigger notification to Pharmacy)) Continuous Glucose Sensor (FreeStyle Shane 3 Plus Sensor) miscIndications: Type 2 diabetes mellitus with hyperglycemia, with long-term current use of insulin ([facility]) 1 each every 15 days. Apply 1 every 15 days as directed for CGM 2 each 11 09/30 Discontinued( Reorder (will not trigger notification to Pharmacy)) glucose blood (FreeStyle Precision Arvin Test) test stripIndications :Type 2 diabetes mellitus with hyperglycemia, with long-term current use of insulin ([facility]) Use to test blood sugar 2 times [...] oxycodone 5mg Q8H PRN Indication: fibromyalgia Last REVISING CLERK Agreement: 01/09/24 Tier II (REVISING CLERK visits every 3 months) - last eval [...] AM EDT): Dr Radha Schulz (psychiatrist) phone [phone], is now taking over of her mental health and will take over her medications for mental health Diverticular disease 09/11/2023 Epigastric hernia 09/11/2023 Incisional hernia 09/11/2023 Osteoarthritis 09/11/2023 Assessment & Plan (10/11/2023 11:50 AM EDT): C/w PRN meds Patient will go to medical records for guidance for new [employer] services Pain in both hands 08/27/2023 Assessment & Plan (10/11/2023 11:51 AM EDT): As above Class 2 severe obesity due t o excess calories with serious comorbidity in adult 05/29/2023 Assessment & Plan (05/16/2024 10:23 AM EDT): Discussed re weight reduction options including exercise, life style modifications, diet and referral to sharepoint specialist. Recommended to decrease soda and sugary [...] Assessment & Plan (10/11/2023 11:52 AM EDT): [employer] services will be requested Assessment & Plan [...] pill count as expected Pt prefers individual REVISING CLERK appointments, will schedule with Benita Mahmood RN [...] Encounters Date Type Department Care Team Description 10/22/2024 Orders Only GENERIC EXTERNAL DATA DEPARTMENT Provider, Generic External Data 10/19/[address] [facility] [address] [place] [address] Virginie Monet MD Essential hypertension 10/14/[address] [facility] [address] [place], [place] [phone] Virginie Monet MD Type 2 diabetes mellitus with hyperglycemia, without long-term current use of insulin ([facility]) 10/14/2024 Travel 10/13/[address] [facility] [address] [place], [place] [phone] Siria English RN Results 10/13/2024 Travel 09/26/[address] [facility] [address] [place] [address] Virginie Monet MD Chronic bilateral low back pain without sciatica 09/22/2024 Orders Only GENERIC EXTERNAL DATA DEPARTMENT Provider, Generic External Data 09/17/[address] [address] Virginie Monet MD [employer] 09/16/2024 10:45 AM EST Office Visit [facility] [address] [place] [address] Virginie Monet MD Essential hypertension (Primary Dx); Type 2 diabetes mellitus without complication, without long-term current use of insulin ([facility]); Type 2 diabetes mellitus with hyperglycemia, with long-term current use of insulin ([facility]); Tear of meniscus of left knee as current injury, unspecified meniscus, unspecified tear type, initial encounter 09/16/[address] [facility] [address] [place] [address] Virginie Monet MD Type 2 diabetes mellitus with hyperglycemia, with long-term current use of insulin ([facility]) 09/16/2024 Travel 09/09/2024 9:45 AM EST Office Visit [facility] [address] [place] [phone] Racheal Flynn FNP Fibromyalgia (Primary Dx); Long-term current use of opiate analgesic; Acute meniscal tear of left knee, subsequent encounter 09/09/2024 Telephone [facility] [address] [place] [address] Racheal Flynn FNP REVISING CLERK Tier 09/09/2024 Travel 08/29/[address] [facility] [address] [place] [address] Virginie Monet MD Depression, unspecified depression type 08/27/[address] [facility] [address] [place] [address] Virginie Monet MD Chronic bilateral low back pain without sciatica 08/26/2024 Refill [facility] [address] [place] [address] Virginie Monet MD Prediabetes 08/12/2024 9:45 AM EST Office Visit [facility] [address] [place] [address] Racheal Flynn, ANIMAL RIDE ATTENDANT Fibromyalgia (Primary Dx); Long-term current use of opiate analgesic 08/12/2024 Travel 08/05/[address] 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 [address] [place] [address] Virginie Monet MD Essential hypertension 07/30/[address] [facility] [address] [place], [place] [phone] Virginie Monet MD Chronic bilateral low back pain without sciatica 07/28/[address] [facility] [address] [place], [place] [phone] Virginie Monet MD Appointment Request from Last 3 Months Immunizations Name Administration Dates Next Due Influenza, IIV3, injectable 04/09/2013 Influenza, Split (incl. amandeep fied surface antigen) 12/21/2014,03/06/2014 Influenza, injectable, quadr ivalent, preservative free, pediatric 04/09/2013 Pfizer Covid-19 Vaccine 12+ 08/09/2021, 1,01/05/2021 Pfizer Covid-19 Vaccine 12+ akin-sucrose (Cabrera Cap) [...] is your housing situation today? I have kaminierich eason 04/30/[address] you [...] 11/04/2024 9:45 AM EDT Office Visit [facility] [address] [place] [phone] 12/18/2024 9:00 AM EDT Office Visit [facility] [address] [place] [phone] Virginie Monet MD [address] [place] [address] Health Maintenance Due Date Last Done Comments [...] Screening 08/21/2024 08/21/2023 Diabetes: Hemoglobin A1C 12/17/2024 03/04/2 025, 04/08/2024, 12/31/2023, Additional history exists Mammogram [...] Procedure Name Priority Date/Time Associated Diagnosis Comments LIPASE Routine 10/22/2024 6:35 PM EDT COMPREHENSIVE METABOLIC PANEL Routine 10/22/2024 6:35 PM EDT LACTIC ACID Routine 10/22/2024 6:35 PM EDT CBC WITH AUTO DIFFERENTIAL Routine 10/22/2024 6:35 PM EDT SARS COV2/INFLUENZA A/B AND RSV RNA QL NAAT Routine 10/22/2024 6:35 PM EDT GLUCOSE, WHOLE BLOOD Routine 09/22/2024 7:09 AM [...] Recently Relevant to Health Maintenance Results * SARS-CoV-2 RNA, Influenza A/B, and RSV RNA, Ql NAAT (10/22/2024 6:35 PM EDT) Pathologist [facility] Influenza A PCR NEGATIVE Negative [facility] Influenza B PCR NEGATIVE Negative [facility] Resp Syncy Virus RNA Qual PCR NEGATIVE Negative [facility] SARS COV2 PCR NEGATIVE Negative [facility] Comment:All test results mus t be [...] use by authorized laboratories.Testing performed on the [employer]am[employer] GeneXpert utilizingreal-time RT-PCR.All SARS CoV2 and positive influenza A/B results arereported to [facility]. 10/22/2024 6:35 PM EDT 10/22/2024 6:39 PM EDT us Generic External Data Provider LAB MICROBIOLOGY - GENERAL ORDERABLES Final Result [facility] [address] [place] [address] [phone] * (ABNORMAL) CBC auto differential (10/22/2024 6:35 PM EDT) White Blood Count 6.7 4.8 - 10.8 X10*3/uL [facility] Red Blood Count 5.55(H) 4.20 - 5.50 X10*6/uL [facility] Hemoglobin 15.2 12.0 - 16.0 g/dl [facility] Hematocrit 43.7 37.0 - 47.0 % [facility] Mean Corpuscular Volume 78.7(L) 80.0 - 98.0 fL [facility] Mean Corpuscular Hemoglobin 27.4 27.0 - 33.0 pg [facility] Mean Corpuscular HGB Conc 34.8 31.0 - 35.0 g/dl [facility] Red Cell Distribution Width 13.9 11.0 - 16.0 % [facility] Platelet Count 348 160 - 400 X10*3/uL [facility] Mean Platelet Volume 9.1(L) 9.4 - 12.3 fL [facility] Neutrophils Percent Auto 56.2 45 - 73 % [facility] Imm Gran Pct Auto 0.1 0.0 - 0.4 % [facility] Lymphocytes Percent Auto 33.0 20 - 40 % [facility] Monocytes Percent Auto 8.2 2 - 11 % [facility] Eosinophils Percent Auto 2.1 0 - 4 % [facility] Basophils Percent Auto 0.4 0 - 2 % [facility] NRBC Pct Auto 0.0 0.0 - 0.2 /100WBC [facility] Neutrophils Absolute Auto 3.8 2.0 - 8.3 x10*3/uL [facility] Imm Gran Abs Auto 0.01 0.00 - 0.03 X10*3/uL [facility] Lymphocytes Absolute Auto 2.2 1.2 - 4.9 X10*3/uL [facility] Monocytes Absolute Auto 0.6 0.1 - 1.2 X10*3/uL [facility] Eosinophils Absolute Auto 0.1 0.0 - 0.4 X10*3/uL [facility] Basophils Absolute Auto 0.0 0.0 - 0.2 X10*3/uL [facility] NRBC Abs Auto 0.000 0.0 - 0.012 X10*3/uL [facility] 10/22/2024 6:35 PM EDT 10/22/2024 6:39 PM EDT Generic External Data Provider LAB BLOOD ORDERAB LES Final Result Performing Organization Address [facility] Co de Phone Number [facility] [address] [place] [phone] * Lipase (10/22/2024 6:35 PM EDT) Lipase 41 8 - 78 U/L [facility] 10/22/2024 6:35 PM EDT 10/22/2024 6:39 PM EDT Generic External Data Provider LAB BLOOD ORDERAB LES Final Result Performing Organization Address [facility] Phone Number [facility] [address] [place] [phone] * Lactic Acid (10/22/2024 6:35 PM EDT) Lactic Acid 1.9 0.5 - 2.0 mmol/L [facility] 10/22/2024 6:35 PM EDT 10/22/2024 6:39 PM EDT Generic External Data Provider LAB BLOOD ORDERAB LES Final Result Performing Organization Address [facility] de Phone Number [facility] [address] [place] [phone] * (ABNORMAL) Comprehensive Metabolic Panel (10/22/2024 6:35 PM EDT) Sodium 141 135 - 145 mmol/L [facility] Potassium 3.5 3.3 - 5.1 mmol/L [facility] Chloride 106 96 - 108 mmol/L [facility] Carbon Dioxide 27 22 - 29 mmol/L [facility] Anion Gap 12 12 - 20 [facility] Urea Nitrogen (BUN) 13 9 - 16 mg/dL [facility] Creatinine, Serum 0.66 0.5 - 1.4 mg/dL [facility] Creatinine Clr Calc Pharmacy 112.2 [facility] Comment:Provided height and weight: 170.18 cm,101.2 kg.eGFR (calculated from the MDRD study equation) and eCrCl(calculated from the Cockcroft-Gault equation) are based ondifferent parameters and may not yield comparable results.If eCrCl result is absurd, please check patient'sheight/weight. Estimated Glomerular Filt Rate >60 [facility] Comment:Chronic Kidney Disea se: Estimated GFR < 60 mL/min/1.37t6Vdtkgu Kidney Disease: Estimated GFR < 15 mL/min/1.73m2 Glucose 161(H) 60 - 115 mg/dL [facility] Calcium 10.0 8.4 - 10.2 mg/dL [facility] Bilirubin, Total 0.4 0.0 - 1.0 mg/dL [facility] Aspartate Amino Transferase 38(H) 5 - 31 U/L [facility] Alanine Aminotransferase 59(H) 0 - 31 U/L [facility] Total Protein 7.8 6.5 - 8.0 g/dL [facility] Albumin Level 4.2 3.5 - 5.0 g/dL [facility] Alkaline Phosphatase 126(H) 39 - 117 U/L [facility] 10/22/2024 6:35 PM EDT 10/22/2024 6:39 PM EDT us Generic External Data Provider LAB BLOOD ORDERAB LES Final Result [facility] [address] [place], [place] [phone] * (ABNORMAL) Glucose, Whole Blood (09/22/2024 7:09 AM EDT) Glucose, Whole Blood 204(H) 60 - 115 mg/dL [facility] Comment:METER #: [id number] 09/22/2024 7:09 AM EDT 09/22/2024 7:14 AM EDT us Generic External Data Provider LAB BLOOD ORDERAB LES Final Result [facility] [address] [place] [phone] * (ABNORMAL) POCT HGB A1C (09/16/2024 [...] specimen / Unknown 09/16/2024 10:52 AM EST us Virginie Lopez MD POINT [...] - 09/09/2024 1:39 PM EST UTOX cup Lot#[id number] Exp. 03/04/26 Internal Pass Control Racheal DIXON POINT OF CARE TEST ENTER/EDIT ORDERABLES Final Result * MR Knee w/o Contrast Left (08/02/2024 8:54 AM EST) Anatomical Region Laterality Modality Magnetic Resonan ce 08/02/2024 8:54 AM EST Narrative 08/02/2024 8:56 AM EST ? [facility] ?[address] ?[place] [address] ? Magnetic Resonance Report ? Signed ? Patient: Martins,Anastasia ?MR#: [id number] ?? 07 ? : 1965 ?Acct:[id number] ? Age/Sex: 58 / F ?ADM Date: 08/01/24 ? Loc: HO.MRI ? Attending Dr: Pete Varela MD ? Ordering Physician: Pete Varela MD ?? Date of Service: 08/01/24 ?? Procedure(s): MR knee LT wo con ?? Accession Number(s): [id number] ? cc: Virginie Monet MD; Pete Varela MD ? CLINICAL HISTORY: S83.363A - Other tear of medial meniscus, current [...] DD/ 0854 ? TD/TT: 08/02/24 0854 ? Contractor [employer]: ? Procedure Note Mauricio Ribeiro - 08/02/[address] [address] Magnetic Resonance Report Signed Patient: Virginie Martins [facility]#: [id number] 07 : 1965Acct:[id number] Age/Sex: 58 / FADM Date: 08/01/24 Loc: HO.MRI Attending Dr: Pete Varela MD Ordering Physician: Pete Varela MD Date of Service: 08/01/24 Procedure(s): MR knee LT wo con Accession Number(s): [id number] cc: Virginie Monet MD; Pete Varela MD [...] in OV> 08/02/24 0855 DD/ TD/TT: 08/02/2454 Contractor [employer]: [facility] External Provider IMG MRI PROCEDURES Final Result * Lipid Panel with Reflex to Direct LDL (04/22/2024 9:30 AM EDT) Triglycerides 149 <150 mg/dL [facility] Comment:Desirable Triglyceri de: less than 150 mg/dLBorderline High Triglyceride 150-199 mg/dLHigh Triglyceride: 200-499 mg/dLVery High Triglyceride: greater than or equal to 5OO mg/dL Cholesterol 154 <200 mg/dL [facility] Comment:Desirable Cholestero l: less than 200 mg/dLBorderline High Cholesterol: 200-239 mg/dLHigh Cholesterol: greater than 239 mg/dL LDL Cholesterol Calculated 79 <100 mg/dL [facility] Comment:Desirable LDL: less than 100 mg/dLNear Optimal/Above Optimal LDL: 110- 129 mg/dLBorderline High LDL: 130-159 mg/dLHigh LDL: 160-189 mg/dLVery High LDL: greater than or equal to 190 mg/dL HDL Cholesterol 46 >40 mg/dL [facility] Comment:Desirable HDL: great er than 40 mg/dL Note: This HDL assay may give artificially low results in patients with liver disease. Blood 04/22/2024 9:30 AM EDT 04/22/2024 11:35 AM EDT Virginie Lopez MD LAB BLOOD ORDERABLES Final Result Performing Organization Address [facility] de Phone Number [facility] [address] [place] [phone] * Hepatitis C Viral RNA, Quantitative, Real-Time PCR (04/22/2024 9:30 AM EDT) [facility] Hepatitis C Viral Load <15 NOT DETECTED NOT DETECTED IU/mL [facility] HCV Log PCR <1.18 NOT DETECTED NOT DETECTED Log IU/mL [facility] Comment:For additional infor екатерина, please refer tohttp://education.[employer]/faq/EQY84m4(This link is being provided for informational/educational purposes only.)THIS TEST WAS PERFORMED AT:[facility] [facility] [place] [phone] PERRY MD Blood 04/22/2024 9:30 AM EDT 04/22/2024 11:35 AM EDT Virginie Lopez MD LAB BLOOD ORDERABLES Final Result Performing Organization Address [facility] de Phone Number [facility] [address] [place] [phone] * Albumin, Random Urine W/Creatinine (04/22/2024 9:30 AM EDT) Creatinine, Urine 193.55 mg/dL [facility] Microalbumin Urine 16.0 mg/L H [facility] Microalbum Creatinine Ratio Ur 8.2 <30 ug/mg cr [facility] Comment:Albumin/Creatinine R atio Reference Ranges: Normal: < 30 ug/mg creatinine Microalbuminuria: 30 - 300 ug/mg creatinineClinical Albuminuria: > 300 ug/mg creatinine Urine (Urine, Random) 04/22/2024 9:30 AM EDT 04/22/2024 11:23 AM EDT us Virginie Lopez MD LAB URINE ORDERABLES Final Result Performing Organization Address [facility] Co de Phone Number [facility] [address] [place] [phone] [phone] * HIV-1/2 Antigen and Antibodies, Fourth Generation, with Reflexes (04/22/2024 9:30 AM EDT) HIV AB/AG Nonreactive Nonreactive [facility] Comment:HIV-1 p24 Ag and/or HIV-1/HIV-2 Ab not detected.A test result that is nonreactive does not exclude thepossibility of exposure to or infection with HIV-1 and/orHIV-2. Nonreactive results in this assay for individualswith prior exposure to HIV-1 and/or HIV-2 may be due toantigen and antibody levels that are below the limit ofdetection of this assay.The [facility] HIV Ag/Ab Combo assay result andsupplemental assay results should be interpreted inconjunction with the patient's clinical presentation,history and other laboratory results. If the results areinconsistent with clinical evidence, additional testing issuggested to confirm the result. Blood Venous blood specimen / Unknown 04/22/2024 9:30 AM EDT 04/22/2024 11:35 AM EDT us Virginie Lopez MD LAB BLOOD ORDERABLES Final Result Performing Organization Address City/[facility]/ZIP Co de Phone Number [facility] [address] [place] [phone] * BI Mammogram Screening Tomosynthesis Bilateral (01/01/2024 8:00 AM EDT) Anatomical Region Laterality Modality Breast Bilateral Mammography 01/01/2024 8:00 AM EDT Narrative 01/29/2024 3:53 PM EDT ? [facility] [place] ? [address] ?[place] [address] ? Mammography Report ? Signed ? Patient: Martins,Anastasia ?MR#: [id number] ?? 07 ? : 1965 ?Acct:[id number] ? Age/Sex: 58 / F ?ADM Date: 01/01/24 ? Loc: HO.MAMMO ? Attending Dr: Virginie Lopez MD ? Ordering Physician: Virginie Monet MD ?Results: ?? 1Negative ? Date of Service: 01/01/24 ?Follow Up: 1 Year From Orig ?? inal Mammogram ? Procedure(s): MM tomosynthesis screening BI ?? Accession Number(s): [id number] ? cc: Virginie Monet MD ? EXAMINATION: ?? MM SCREENING DIGITAL BREAST TOMOSYNTHESIS, BILATERAL ? CLINICAL INFORMATION: ? Screening. Asymptomatic. ? COMPARISON: ?? Mammography: This study is compared with prior exams dating back to ?? 2017. ? TECHNIQUE: ?? Digital breast tomosynthesis is [...] 1549 ? DD/ 0800 ? TD/TT: ? Contractor [employer]: ? Procedure Note Mauricio Ribeiro - 01/29/2024 [facility] [address] [place] [address] Mammography Report Signed Patient: Virginie Martins [facility]#: [id number] 07 : 1965Acct:[id number] Age/Sex: 58 / FADM Date: 01/01/24 Loc: HO.MAMMO Attending Dr: Virginie Lopez MD Ordering Physician: Virginie Monet MDResults: 1Negative Date of Service: 01/01/24Follow Up: 1 Year From Orig inal Mammogram Procedure(s): MM tomosynthesis screening BI Accession Number(s): [id number] cc: Virginie Monet MD EXAMINATION: MM SCREENING [...] in OV> 01/29/24 1549 DD/ 0800 TD/TT: Contractor [employer]: Virginie Lopez MD IMG BI PROCEDURES Fin al Result * HPV mRNA E6/E7 (02/27/2018 3:34 PM EDT) HPV mRNA E6/E7 Not Detected NOT DETECTED [facility] Comment: This test was performed using the APTIMA(R) HPV Assay ([employer] This assay detects E6/E7 viral messenger RNA (mRNA) from 14 high-risk HPV types (16,18,31,33,35,39,45,51, 52,56,58,59,66,68). For additional information please refer to: http://education.[employer]/faq/TUM727k3 (This link is being provided for informational/ educational purposes only.) The analytical performance characteristics of this assay have been determined by [employer] [place], [place]. The modifications have not been cleared or approved by the FDA. This assay has been validated pursuant to the CLIA regulations and is used for clinical purposes. Test Performed by Liz Chen, [facility], [address] [place] [address] Adriel Barclay M.D., Ph.D., Director of Laboratories , [facility] [id number] Please note: ??Effective 03/27/2016, HPV testing will be performed using [employer]'s APTIMA test which targets mRNA. Detecting mRNA instead of DNA, as in older methods, offers significant improvements in specificity. 02/27/2018 3:34 PM EDT Ela WILLS HISTORICAL/NON ORDERABLE LABS Final Result Performing Organization Address City/[facility]/ZIP Co de Phone Number [facility] [facility] [address] * Pap Smear (02/27/2018 12:00 AM EDT) Swab Ela WILLS [facility] CYTOLOGY ORDERABLES F inal Result Performing Organization Address [facility] Co de Phone Number [facility] [address] [place] [address] [phone] * Colonoscopy (01/31/2017) Colonoscopy Normal Normal Narrative Ashley Recio - 01/31/2017 Repeat colonoscopy in 10 years . Results are in [facility] 01/31/2017 Historical Provider MD HEALTH MAINTENANCE Final Result from Last 3 Months or Most Recently Relevant to Health Maintenance Insurance [facility] Care Teams Cylinder Grinder Relationship Specialty Start Date End Date Virginie Monet MD [address] [place] [phone] PCP - General Family Medicine 07/30/20
== END 2024-10-23 07:20 | disposition home or self-care (01) ==
LOC: HO.MRI 07:19
PROVIDERS: PCP Internal Medicine; Visit Provider Orthopaedic Surgery
DX: S83.241A Other tear of medial meniscus, current injury, right knee, initial encounter (principal)
CPT/HCPCS: 73721

== ENCOUNTER 2024-10-24 07:33 | Emergency (ER) | payer OTHER, SELFPAY ==
--- NOTE | ~2024-10-24 | CT_ITS ---
EXAMINATION: CT ABDOMEN AND PELVIS WITH CONTRAST CLINICAL INFORMATION: Left lower quadrant, epigastric, and right upper quadrant pain. Nausea, vomiting, and diarrhea. COMPARISON: None available. TECHNIQUE: Multidetector volumetric images were obtained from the superior aspect of the liver through the pubic symphysis following administration 85 mL of Omnipaque 350 intravenous contrast. Sagittal and coronal reformatted images were obtained on the technologist's workstation. Oral contrast: No This CT examination was performed using dose optimization techniques as appropriate, variously including the following: *Automated exposure control *Adjustment of mA and/or kV according to patient size (this includes techniques or standardized protocols for targeted exams where dose is matched to indication/reason for exam; i.e. extremities or head) *Use of iterative reconstruction technique FINDINGS: Unfortunately, the IV infiltrated during contrast injection. The examination was scanned noncontrast. LUNG BASES: Lung bases are clear. No effusions, heart size normal. Normal GE junction. LIVER, GALLBLADDER, AND BILIARY TREE: The unenhanced liver is normal in size, shape, and attenuation. No focal hepatic lesion or biliary ductal dilatation is present. Gallbladder is surgically absent. PANCREAS: Unremarkable. SPLEEN: Unremarkable. ADRENAL GLANDS: Unremarkable. KIDNEYS AND URETERS: The kidneys are normal in size, shape, and attenuation. No hydronephrosis, hydroureter, or calculi seen. No perinephric stranding. BLADDER: Unremarkable. GASTROINTESTINAL TRACT: There is an anastomosis at the rectosigmoid junction, with unremarkable appearance. Remainder of the colon is normal in course, caliber, and appearance with only minimal diverticulosis of the sigmoid area. The stomach is normal in appearance. The duodenum is normal. The small bowel is normal in course and caliber without inflammatory abnormality. A normal appendix is visualized. No rectal abnormality. ABDOMINAL WALL: There is a tiny left inguinal fat-containing hernia. LYMPH NODES: Normal. VASCULAR: Mild to moderate atheromatous calcification of the aorta and iliac vessels. No aneurysm. PELVIC VISCERA: The uterus and adnexa are unremarkable. OSSEOUS STRUCTURES: No suspicious lytic or blastic bone lesions. Normal imaging appearance. CT/CT abdomen pelvis w IV con IMPRESSION: No acute findings in the abdomen or pelvis. Electronically signed by: George Main MD 10/24/2024 12:20 PM EDT
[2024-10-24 07:36] VITALS: BP 157/69; PULSE 104; RESP 22; TEMP 36; O2SAT 96; BMI 34.0
[2024-10-24 07:52] LABS: MANUAL DIFF FLAG NO
[2024-10-24 07:54] LABS: Basophils Percent Auto 0.3 % (0-2); Eosinophils Absolute Auto 0.1 X10*3/uL (0.0-0.4); Hematocrit 42.9 % (37.0-47.0); Hemoglobin 14.5 g/dl (12.0-16.0); Imm Gran Abs Auto 0.01 X10*3/uL (0.00-0.03); Imm Gran Pct Auto 0.2 % (0.0-0.4); Lymphocytes Absolute Auto 1.7 X10*3/uL (1.2-4.9); Lymphocytes Percent Auto 29.3 % (20-40); Mean Corpuscular HGB Conc 33.8 g/dl (31.0-35.0); Mean Corpuscular Volume 79.9 fL (80.0-98.0); Mean Platelet Volume 9.2 fL (9.4-12.3); Monocytes Absolute Auto 0.4 X10*3/uL (0.1-1.2); Monocytes Percent Auto 6.6 % (2-11); Neutrophils Absolute Auto 3.6 x10*3/uL (2.0-8.3); Neutrophils Percent Auto 61.6 % (45-73); Platelet Count 317 X10*3/uL (160-400); Red Blood Count 5.37 X10*6/uL (4.20-5.50); White Blood Count 5.9 X10*3/uL (4.8-10.8)
[2024-10-24 08:06] LABS: Appearance Urine Cloudy; Bacteria Urine 4+ (None Seen); Color Urine Yellow; Glucose Urine UA Negative (Negative); Hyaline Casts Urine 0-2 /LPF (0-2); Leukocyte Esterase Urine Trace (Negative); Nitrite Urine Negative (Negative); RBC Urine 0-2 /HPF (0-2); Specific Gravity - Urine 1.025 (1.005-1.025); Squamous Epithelial Cell Urine >20 /HPF (0-2); UMIC TRIGGER UACC YES; Urine Blood Negative (Negative); Urine Ketones Trace mg/dL (Negative); Urine Protein Trace mg/dL (Neg-Trace); WBC Urine 0-5 /HPF (0-5)
--- OUTSIDE RECORDS SUMMARY | 2024-10-24 08:19 | XMS_ITS | Encounter Summary ---
Author Organization [employer] Address 75 [facility] 7t [place] [address] Care Team Providers Care Social Economist Name Role Phone Virginie Monet MD Primary Care Provide r Reason for Visit * Reason Onset Date Comments Appointment Request 02/05/2024 Encounter Details Date Type Department Care Team ([facility] Contact Info) Description 02/05/2024 Telephone [facility] [address] [place], [place] [phone] Virginie Monet MD 230 [place] [address] Appointment Request Social History Tobacco Use Types [...] Office Visit [facility] [address] [place] [address] 12/18/2024 9:00 AM EDT Office Visit [facility] [address] [place] [address] Virginie Monet MD [address] [place] [address] documented as of this encounter Visit Diagnoses Not on filedocumented in this encounter Additional Health Concerns Assessment Noted Time PHQ-9 Depression Total Score: 15 024 11:32 AM EDT documented as of this encounter Care Teams Social Economist Relationship Specialty Start Date End Date Virginie Monet MD [address] [place] [address] PCP - General Family Medicine 07/30/20 documented as of this encounter
--- OUTSIDE RECORDS SUMMARY | 2024-10-24 08:19 | XMS_ITS | Encounter Summary ---
Author Organization [employer] Address [address] [facility] [address] 7t [place] [address] Care Team Providers Care Skin Drier Name Role Phone Virginie Monet MD Primary Care Provide r Reason for Visit * Reason Comments Med Refill Encounter Details Date Type Department Care Team ([facility] st Contact Info) Description 01/03/2024 Refill [facility] 230 [place], [place] [phone] Virginie Monet MD 230 [place], [place] [phone] Anxiety Social History Tobacco Use Types Packs/Day [...] 11/04/2024 9:45 AM EDT Office Visit [facility] [address] [place] [address] 12/18/2024 9:00 AM EDT Office Visit [address] [address] Virginie Monet MD [address] [place] [address] documented as of this encounter Visit Diagnoses Diagnosis Anxiety Anxiety state, unspecified documented in this encounter Additional Health Concerns Assessment Noted Time PHQ-9 Depression Total Score: 0 05/29/20 23 2:13 PM EST documented as of this encounter Care Teams Skin Drier Relationship Specialty Start Date End Date Virginie Monet MD [address] [place] [address] PCP - General Family Medicine 07/30/20 documented as of this encounter
--- OUTSIDE RECORDS SUMMARY | 2024-10-24 08:19 | XMS_ITS | Encounter Summary ---
Author Organization [employer] Address [address] [facility] [address] 7t [place] [address] Care Team Providers Care Lodging Facilities Manager Name Role Phone Virginie Monet MD Primary Care Provide r Reason for Visit * Reason Onset Date Comments ER Follow-up 10/23/2024 Encounter Details Date Type Department Care Team ([facility] Contact Info) Description 10/23/[address] [facility] 230 [place], [place] [phone] Nemo Tapia RN 230 [place] [address] ER Follow-up Social History Tobacco Use Types Packs/Day Years [...] encounter Miscellaneous Notes * Telephone Encounter - Nemo Tapia RN - 10/23/2024 4:36 PM EDT Labs from ED noted 10/22/24. No ED note available as pt. LWBS/ Left without treatment. Complaint in ED was abd. Pain. TC placed to pt. Pt. Reports abd. Pain in RUQ and around belly button, worse after eating x 1.5 weeks. Pt. Reports nausea and loose stools approx twice daily as well. Denies vomiting. Pt. Reports taking elvie seltzer without positive effect. Pt. Plans to come to walk in clinic tomorrow for evaluation, advised of possible wait time. documented in this encounter Plan of Treatment Upcoming Encounters Date Type Department Care Team (Late st Contact Info) Description 11/04/2024 9:45 AM EDT Office Visit [facility] [address] [place] [phone] 12/18/2024 9:00 AM EDT Office Visit [facility] [address] [place] [address] Virginie Monet MD 230 [place] [address] documented as of this encounter Visit Diagnoses Not on filedocumented in this encounter Additional Health Concerns Assessment Noted Time PHQ-9 Depression Total Score: 0 09/17/19 25 10:52 AM EST documented as of this encounter Care Teams Lodging Facilities Manager Relationship Specialty Start Date End Date Virginie Monet MD 230 [place] [address] PCP - General Family Medicine 07/30/20 documented as of this encounter
--- OUTSIDE RECORDS SUMMARY | 2024-10-24 08:19 | XMS_ITS | Encounter Summary ---
Author Organization [employer] Address [address] [facility] [address] 7t [place] [address] Care Team Providers Care Drug Safety Assistant Name Role Phone Virginie Monet MD Primary Care Provide r Encounter Details Date Type Department Care Team ([facility] Contact Info) Description 10/12/2023 Orders Only [facility] 230 [place], [place] [phone] Virginie Monet MD 230 [place] [address] Social History Tobacco Use Types Packs/Day Years [...] 9:45 AM EDT Office Visit [facility] [address] [place] [address] 12/18/2024 9:00 AM EDT Office Visit [address] [address] Virginie Monet MD [address] [place] [address] documented as of this encounter Visit Diagnoses Not on filedocumented in this encounter Additional Health Concerns Assessment Noted Time PHQ-9 Depression Total Score: 0 05/29/20 23 2:13 PM EST documented as of this encounter Care Teams Drug Safety Assistant Relationship Specialty Start Date End Date Virginie Monet MD [address] [place] [address] PCP - General Family Medicine 07/30/20 documented as of this encounter
--- OUTSIDE RECORDS SUMMARY | 2024-10-24 08:19 | XMS_ITS | Encounter Summary ---
Author Organization [employer] Address [address] [facility] [address] 7t [place] [address] Care Team Providers Care Factory Expert Name Role Phone Virginie Monet MD Primary Care Provide r Encounter Details Date Type Department Care Team ([facility] Contact Info) Description 10/31/2023 Telephone [facility] 230 [place], [place] [phone] Virginie Monet MD 230 [place] [address] Social History Tobacco Use Types Packs/Day Years [...] 10/31/2023 11:32 AM EDT Faxed referral for HAND CUTTER services for Ry today, per patient request. documented in this encounter Plan of Treatment Upcoming Encounters Date Type Department Care Team (Late st Contact Info) Description 11/04/2024 9:45 AM EDT Office Visit [facility] [address] [place] [address] 12/18/2024 9:00 AM EDT Office Visit [facility] [address] [place] [address] Virginie Monet MD [address] [place] [address] documented as of this encounter Visit Diagnoses Not on filedocumented in this encounter Additional Health Concerns Assessment Noted Time PHQ-9 Depression Total Score: 0 05/29/20 23 2:13 PM EST documented as of this encounter Care Teams Factory Expert Relationship Specialty Start Date End Date Virginie Monet MD [address] [place] [address] PCP - General Family Medicine 07/30/20 documented as of this encounter
--- OUTSIDE RECORDS SUMMARY | 2024-10-24 08:19 | XMS_ITS | Encounter Summary ---
Author Organization [employer] Address 75 [facility] 7t [place] [address] Care Team Providers Care Fish Agent Name Role Phone Virginie Monet MD Primary Care Provide r Reason for Visit * Reason Onset Date Comments Referral 10/02/2022 Encounter Details Date Type Department Care Team ([facility] Contact Info) Description 10/02/2022 Telephone [facility] 230 [place], [place] [phone] Virginie Monet MD 230 [place] [address] Referral Social History Tobacco Use Types Packs/Day [...] 2:04 PM EDT Tc from Andree[employer] Waller summer child caregiver requesting a referral for occupational therapy evaluation for pt to be able to get a shower chair and electric lift chair . Please call to clarify at phone # [phone]. documented in this encounter Plan of Treatment Upcoming Encounters Date Type Department Care Team (Late st Contact Info) Description 11/04/2024 9:45 AM EDT Office Visit [address] [place] [address] [address] 12/18/2024 9:00 AM EDT Office Visit [address] [place] [address] [address] Virginie Monet MD [address] [place] [address] documented as of this encounter Visit Diagnoses Not on filedocumented in this encounter Care Teams Fish Agent Relationship Specialty Start Date End Date Virginie Monet MD [address] [place] [address] PCP - General Family Medicine 07/30/20 documented as of this encounter
--- OUTSIDE RECORDS SUMMARY | 2024-10-24 08:19 | XMS_ITS | Encounter Summary ---
Author Organization [employer] Address 75 [facility] 7t [place] [address] Care Team Providers Care Telehealth Director Name Role Phone Virginie Monet MD Primary Care Provide r Reason for Visit * Reason Onset Date Comments Med Refill 02/05/2023 Encounter Details Date Type Department Care Team ([facility] st Contact Info) Description 02/05/2023 Telephone [facility] 230 [place], [place] [phone] Virginie Monet MD 230 [place] [address] Med Refill Social History Tobacco Use Types [...] 9:45 AM EDT Office Visit [facility] [address] [place] [address] 12/18/2024 9:00 AM EDT Office Visit [facility] [address] [place] [address] Virginie Monet MD [address] [place] [address] documented as of this encounter Visit Diagnoses Not on filedocumented in this encounter Additional Health Concerns Assessment Noted Time PHQ-9 Depression Total Score: 0 11/15/19 23 9:09 AM EDT documented as of this encounter Care Teams Telehealth Director Relationship Specialty Start Date End Date Virginie Monet MD [address] [place] [phone] PCP - General Family Medicine 07/30/20 documented as of this encounter
--- OUTSIDE RECORDS SUMMARY | 2024-10-24 08:19 | XMS_ITS | Encounter Summary ---
Author Organization [employer] Address [address] [facility] [address] 7t [place] [address] Care Team Providers Care Marquetry Worker Name Role Phone Virginie Monet MD Primary Care Provide r Reason for Visit * Reason Comments Med Refill Encounter Details Date Type Department Care Team ([facility] st Contact Info) Description 01/22/2024 Refill [facility] 230 [place], [place] [phone] Virginie Monet MD 230 [place], [place] [phone] Anxiety Social History Tobacco Use Types Packs/Day [...] Description 11/04/2024 9:45 AM EDT Office Visit [facility] [address] [place] [address] 12/18/2024 9:00 AM EDT Office Visit [address] [address] Virginie Monet MD [address] [place] [address] documented as of this encounter Visit Diagnoses Diagnosis Anxiety Anxiety state, unspecified documented in this encounter Additional Health Concerns Assessment Noted Time PHQ-9 Depression Total Score: 15 024 11:32 AM EDT documented as of this encounter Care Teams Marquetry Worker Relationship Specialty Start Date End Date Virginie Monet MD [address] [place] [phone] PCP - General Family Medicine 07/30/20 documented as of this encounter
--- OUTSIDE RECORDS SUMMARY | 2024-10-24 08:19 | XMS_ITS | Encounter Summary ---
Author Organization [employer] Address 75 [facility] 7t [place] [address] Care Team Providers Care Guest Service Host Name Role Phone Virginie Monet MD Primary Care Provide r Encounter Details Date Type Department Care Team ([facility] Contact Info) Description 08/23/2022 Orders Only [facility] [address] [place] [address] [phone] Yolanda Rose DO [address] [place] [address] Social History Tobacco Use Types Packs/Day Years [...] Description 11/04/2024 9:45 AM EDT Office Visit [facility] [address] [place] [address] [phone] 12/18/2024 9:00 AM EDT Office Visit [facility] [address] [place] [address] [phone] Virginie Monet MD [address] [place] [address] [phone] documented as of this encounter Visit Diagnoses Not on filedocumented in this encounter Care Teams Guest Service Host Relationship Specialty Start Date End Date Virginie Monet MD 230 [place] [address] PCP - General Family Medicine 07/30/20 documented as of this encounter
--- OUTSIDE RECORDS SUMMARY | 2024-10-24 08:19 | XMS_ITS | Encounter Summary ---
Author Organization [employer] Address [address] [facility] [address] 7t [place] [address] Care Team Providers Care Switchboard Operator Helper Name Role Phone Virginie Monet MD Primary Care Provide r Reason for Visit * Reason Onset Date Comments Nurse Triage 12/14/2023 Encounter Details Date Type Department Care Team ([facility] st Contact Info) Description 12/14/2023 Telephone [facility] 230 [place], [place] [phone] Virginie Monet MD 230 [place] [address] Nurse Triage Social History Tobacco Use Types [...] immediate release tablet To be sent to: [facility] documented in this encounter Plan of Treatment Upcoming Encounters Date Type Department Care Team (Late st Contact Info) Description 11/04/2024 9:45 AM EDT Office Visit [facility] [address] [place] [address] 12/18/2024 9:00 AM EDT Office Visit [facility] [address] [place] [address] Virginie Monet MD [address] [place] [address] documented as of this encounter Visit Diagnoses Diagnosis Chronic bilateral low back pain without sciatica documented in this encounter Additional Health Concerns Assessment Noted Time PHQ-9 Depression Total Score: 0 05/29/20 23 2:13 PM EST documented as of this encounter Care Teams Switchboard Operator Helper Relationship Specialty Start Date End Date Virginie Monet MD 230 [place] [address] PCP - General Family Medicine 07/30/20 documented as of this encounter
--- OUTSIDE RECORDS SUMMARY | 2024-10-24 08:19 | XMS_ITS | Encounter Summary ---
Author Organization [employer] Address [address] [facility] [address] 7t [place] [address] Care Team Providers Care Laundrette Owner Name Role Phone Virginie Monet MD Primary Care Provide r Encounter Details Date Type Department Care Team ([facility] Contact Info) Description 05/19/2024 Orders Only [facility] 230 [place], [place] [phone] Virginie Monet MD 230 [place], [place] [phone] Social History Tobacco Use Types Packs/Day Years [...] Description 11/04/2024 9:45 AM EDT Office Visit [facility] [address] [place] [phone] 12/18/2024 9:00 AM EDT Office Visit [address] [address] Virginie Monet MD [address] [place] [address] documented as of this encounter Visit Diagnoses Not on filedocumented in this encounter Additional Health Concerns Assessment Noted Time PHQ-9 Depression Total Score: 15 024 11:32 AM EDT documented as of this encounter Care Teams Laundrette Owner Relationship Specialty Start Date End Date Virginie Monet MD [address] [place] [phone] PCP - General Family Medicine 07/30/20 documented as of this encounter
--- OUTSIDE RECORDS SUMMARY | 2024-10-24 08:19 | XMS_ITS | Encounter Summary ---
Author Organization [employer] Address 75 [facility] 7t [place] [address] Care Team Providers Care Natural Gas Basis Trader Name Role Phone Virginie Monet MD Primary Care Provide r Reason for Visit * Reason Onset Date Comments Med Refill 06/04/2024 Encounter Details Date Type Department Care Team ([facility] Contact Info) Description 06/04/2024 Telephone [facility] 230 [place], [place] [phone] Virginie Monet MD 230 [place] [address] Med Refill Social History Tobacco Use Types [...] immediate release tablet To be sent to: [id number] - [place], [place] - [address] [facility] documented in this encounter Plan of Treatment Upcoming Encounters Date Type Department Care Team (Late st Contact Info) Description 11/04/2024 9:45 AM EDT Office Visit [facility] [address] [place] [address] [phone] 12/18/2024 9:00 AM EDT Office Visit [facility] [address] [place] [address] Virginie Monet MD [address] [place] [address] documented as of this encounter Visit Diagnoses Not on filedocumented in this encounter Additional Health Concerns Assessment Noted Time PHQ-9 Depression Total Score: 15 024 11:32 AM EDT documented as of this encounter Care Teams Natural Gas Basis Trader Relationship Specialty Start Date End Date Virginie Monet MD 230 [place] [address] PCP - General Family Medicine 07/30/20 documented as of this encounter
--- OUTSIDE RECORDS SUMMARY | 2024-10-24 08:19 | XMS_ITS | Encounter Summary ---
Author Organization [employer] Address [address] [facility] 7t [place] [address] Care Team Providers Care Paper Slitter Name Role Phone Virginie Monet MD Primary Care Provide r Encounter Details Date Type Department Care Team ([facility] Contact Info) Description 10/22/2024 Orders Only [...] Upcoming Encounters Date Type Department Care Team ([facility] st Contact Info) Description 11/04/2024 9:45 AM EDT Office Visit [facility] MED[facility]INE [address] [place] [phone] 12/18/2024 9:00 AM EDT Office Visit [facility] MED[facility]INE [address] [place] [phone] Virginie Monet MD [address] [place] [phone] Pending Results Name Type Priority Associated Diagnoses Date /Time Blood Culture (First) Microbiology Routine 10/22/2024 6:34 PM EDT documented as of this encounter Procedures Procedure Name Priority Date/Time Associated Diagnosis Comments MR KNEE WO CONTRAST RIGHT Routine 10/23/2024 7:15 AM EDT SARS COV2/INFLUENZA A/B AND RSV RNA QL NAAT Routine 10/22/2024 6:35 PM EDT CBC WITH AUTO DIFFERENTIAL Routine 10/22/2024 6:35 PM EDT LIPASE Routine 10/22/2024 6:35 PM EDT LACTIC ACID Routine 10/22/2024 6:35 PM EDT COMPREHENSIVE METABOLIC PANEL Routine 10/22/2024 6:35 PM EDT BLOOD CULTURE (FIRST) Routine 10/22/2024 6:34 PM EDT BLOOD CULTURE (SECOND) Routine 5:03 PM EDT documented in this encounter Results * MR Knee w/o Contrast Right (10/23/2024 7:15 AM EDT) Anatomical Region Laterality Modality Magnetic Resonan ce 10/23/2024 7:15 AM EDT Narrative 10/23/2024 8:20 AM EDT ? [facility] ?[address] ?[place] [address] ? Magnetic Resonance Report ? Signed ? Patient: Virginie Martins ?MR#: [id number] ?? 07 ? : 1965 ?Acct:[id number] ? Age/Sex: 59 / F ?ADM Date: 10/23/24 ? Loc: HO.MRI ? Attending Dr: Pete Varela MD ? Ordering Physician: Pete Varela MD ?? Date of Service: 10/23/24 ?? Procedure(s): MR knee RT wo con ?? Accession Number(s): [id number] ? cc: Virginie Monet MD; Pete Varela MD ? EXAMINATION: ?? MR KNEE WITHOUT CONTRAST, RIGHT ? CLINICAL INFORMATION: ?? Anterior right knee pain. Remote history of surgery for chondromalacia. ? COMPARISON: ?? No prior MRI. ?? Right knee plain films dated 12/28/2020. ? TECHNIQUE: ?? MRI of the right knee without contrast was performed using routine ?? sequences on a 1.5 Katya Siemens high-field scanner. ? FINDINGS: ? MENISCI: ? Medial Meniscus: Intact and normal in signal. ? Lateral Meniscus: Intact and normal in signal. ? LIGAMENTS: ? Anterior Cruciate: Intact and normal in signal. ?? Posterior Cruciate: Intact and normal in signal. ? Medial Collateral: Intact and normal in signal. ? Lateral Collateral Complex: The biceps femoris tendon, conjoined ?? tendon, fibular collateral ligament, and popliteus tendon are all ?? intact and normal in signal. ? EXTENSOR MECHANISM: ?? Intact and normal in signal. ?? Incidental note made of increased T2 signal within the suprapatellar ?? fat pad suggestive of fat pad impingement syndrome. ? PATELLAR RETINACULUM: ?? Bilaterally intact. The medial patellofemoral ligament is intact. ? BONE: ?? There is a focus of subchondral bone plate edema within the lateral ?? inferior femoral trochlea, with a 6 x 4 mm overlying focus of ?? full-thickness cartilage loss (osteochondral defect) (series 19, image ?? 12; series 17, image 15). ? JOINTS/CARTILAGE: ? Medial Compartment: Mild osteoarthritis present. Minimal cartilaginous ?? thinning and eburnation of the weightbearing medial femoral condyle. ?? Medial compartment otherwise normal. ? Lateral Compartment: Minimal osteoarthritis present. ? Patellofemoral Compartment: Osteochondral defect in the inferolateral ?? femoral trochlea as detailed above. Patellofemoral compartment ?? otherwise normal. ? JOINT FLUID AND BURSAE: ?? There is a very small joint effusion. ?? There are no bursal abnormalities. ? OTHER: ?? The popliteal fossa appears normal. ?? The imaged musculature is normal in signal. ? MR/MR knee RT wo con ?? IMPRESSION: ?? 1. There is a 6 x 4 mm focus of full-thickness cartilage loss with ?? underlying subchondral bone plate edema in the inferolateral aspect of ?? the femoral trochlea. ?? 2. There is increased signal in the suprapatellar fat pad suggestive of ?? fat pad impingement syndrome. ?? 3. The menisci and major ligamentous structures are intact. ?? 4. Minimal medial and lateral compartment osteoarthritis. ? Electronically signed by: ??George Main MD ??10/23/2024 08:18 AM EDT RP ? Dictated By: ?George Main MD ? Signed By: ?<Electronically signed by George Main MD in OV> ?10/23/24 0818 ? DD/ 0715 ? TD/TT: 10/23/24 0750 ? Admitting Coordinator: ? Procedure Note Gema, Mauricio - 10/23/[address] [address] Magnetic Resonance Report Signed Patient: Virginie Martins AMR#: [id number] 07 : 1965Acct:[id number] Age/Sex: 59 / FADM Date: 10/23/24 Loc: HO.MRI Attending Dr: Pete Varela MD Ordering Physician: Pete Varela MD Date of Service: 10/23/24 Procedure(s): MR knee RT wo con Accession Number(s): [id number] cc: Virginie Monet MD; Pete Varela MD EXAMINATION: MR KNEE WITHOUT CONTRAST, RIGHT CLINICAL INFORMATION: Anterior right knee pain. Remote history of surgery for chondromalacia. COMPARISON: No prior MRI. Right knee plain films dated 12/28/2020. TECHNIQUE: MRI of the right knee without contrast was performed using routine sequences on a 1.5 Katya Siemens high-field scanner. FINDINGS: MENISCI: Medial Meniscus: Intact and normal in signal. Lateral Meniscus: Intact and normal in signal. LIGAMENTS: Anterior Cruciate: Intact and normal in signal. Posterior Cruciate: Intact and normal in signal. Medial Collateral: Intact and normal in signal. Lateral Collateral Complex: The biceps femoris tendon, conjoined tendon, fibular collateral ligament, and popliteus tendon are all intact and normal in signal. EXTENSOR MECHANISM: Intact and normal in signal. Incidental note made of increased T2 signal within the suprapatellar fat pad suggestive of fat pad impingement syndrome. PATELLAR RETINACULUM: Bilaterally intact. The medial patellofemoral ligament is intact. BONE: There is a focus of subchondral bone plate edema within the lateral inferior femoral trochlea, with a 6 x 4 mm overlying focus of full-thickness cartilage loss (osteochondral defect) (series 19, image 12; series 17, image 15). JOINTS/CARTILAGE: Medial Compartment: Mild osteoarthritis present. Minimal cartilaginous thinning and eburnation of the weightbearing medial femoral condyle. Medial compartment otherwise normal. Lateral Compartment: Minimal osteoarthritis present. Patellofemoral Compartment: Osteochondral defect in the inferolateral femoral trochlea as detailed above. Patellofemoral compartment otherwise normal. JOINT FLUID AND BURSAE: There is a very small joint effusion. There are no bursal abnormalities. OTHER: The popliteal fossa appears normal. The imaged musculature is normal in signal. MR/MR knee RT wo con IMPRESSION: 1. There is a 6 x 4 mm focus of full-thickness cartilage loss with underlying subchondral bone plate edema in the inferolateral aspect of the femoral trochlea. 2. There is increased signal in the suprapatellar fat pad suggestive of fat pad impingement syndrome. 3. The menisci and major ligamentous structures are intact. 4. Minimal medial and lateral compartment osteoarthritis. Electronically signed by: George Main MD 10/23/2024 08:18 AM EDT Dictated By: George Mani MD Signed By: <Electronically signed by George Main MD in OV> 10/23/24 0818 DD/ 0715 TD/TT: 10/23/24 0750 Admitting Coordinator: [facility] External Provider IMG MRI PROCEDURES Final Result * SARS-CoV-2 RNA, Influenza A/B, and RSV RNA, Ql NAAT (10/22/2024 6:35 PM EDT) Influenza A PCR NEGATIVE Negative [facility] Influenza B PCR NEGATIVE Negative [facility] Resp Syncy Virus RNA Qual PCR NEGATIVE Negative [facility] SARS COV2 PCR NEGATIVE Negative [facility] Comment:All test results mus t be [...] use by authorized laboratories.Testing performed on the [employer] GeneXpert utilizingreal-time RT-PCR.All SARS CoV2 and positive influenza A/B results arereported to [facility]. 10/22/2024 6:35 PM EDT 10/22/2024 6:39 PM EDT us Generic External Data Provider LAB MICROBIOLOGY - GENERAL ORDERABLES Final Result Performing Organization Address City/[facility]/ZIP Co de Phone Number [facility] [address] [place] [phone] * Lipase (10/22/2024 6:35 PM EDT) Lipase 41 8 - 78 U/L [facility] 10/22/2024 6:35 PM EDT 10/22/2024 6:39 PM EDT Generic External Data Provider LAB BLOOD ORDERAB LES Final Result Performing Organization Address [facility] Co de Phone Number [facility] [address] [place] [phone] * (ABNORMAL) Comprehensive Metabolic Panel (10/22/2024 6:35 PM EDT) Sodium 141 135 - 145 mmol/L [facility] Potassium 3.5 3.3 - 5.1 mmol/L [facility] Chloride 106 96 - 108 mmol/L [facility] Carbon Dioxide 27 22 - 29 mmol/L [facility] Anion Gap 12 12 - 20 [facility] Urea Nitrogen (BUN) 13 9 - 16 mg/dL [facility] Creatinine, Serum 0.66 0.5 - 1.4 mg/dL [facility] Creatinine Clr Calc Pharmacy 112.2 [facility] Comment:Provided height and weight: 170.18 cm,101.2 kg.eGFR (calculated from the MDRD study equation) and eCrCl(calculated from the Cockcroft-Gault equation) are based ondifferent parameters and may not yield comparable results.If eCrCl result is absurd, please check patient'sheight/weight. Estimated Glomerular Filt Rate >60 [facility] Comment:Chronic Kidney Disea se: Estimated GFR < 60 mL/min/1.88x5Daupnq Kidney Disease: Estimated GFR < 15 mL/min/1.73m2 Glucose 161(H) 60 - 115 mg/dL [facility] Calcium 10.0 8.4 - 10.2 mg/dL [facility] Bilirubin, Total 0.4 0.0 - 1.0 mg/dL [facility] Aspartate Amino Transferase 38(H) 5 - 31 U/L [facility] Alanine Aminotransferase 59(H) 0 - 31 U/L [facility] Total Protein 7.8 6.5 - 8.0 g/dL [facility] Albumin Level 4.2 3.5 - 5.0 g/dL [facility] Alkaline Phosphatase 126(H) 39 - 117 U/L [facility] 10/22/2024 6:35 PM EDT 10/22/2024 6:39 PM EDT Generic External Data Provider LAB BLOOD ORDERAB LES Final Result Performing Organization Address [facility] Co de Phone Number [facility] [address] [place] [phone] * Lactic Acid (10/22/2024 6:35 PM EDT) [facility] Lactic Acid 1.9 0.5 - 2.0 mmol/L [facility] 10/22/2024 6:35 PM EDT 10/22/2024 6:39 PM EDT Generic External Data Provider LAB BLOOD ORDERAB LES Final Result Performing Organization Address City/[facility] de Phone Number [facility] [address] [place] [phone] * (ABNORMAL) CBC auto differential (10/22/2024 6:35 PM EDT) Pathologist [facility] White Blood Count 6.7 4.8 - 10.8 X10*3/uL [facility] Red Blood Count 5.55(H) 4.20 - 5.50 X10*6/uL [facility] Hemoglobin 15.2 12.0 - 16.0 g/dl [facility] Hematocrit 43.7 37.0 - 47.0 % [facility] Mean Corpuscular Volume 78.7(L) 80.0 - 98.0 fL [facility] Mean Corpuscular Hemoglobin 27.4 27.0 - 33.0 pg [facility] Mean Corpuscular HGB Conc 34.8 31.0 - 35.0 g/dl [facility] Red Cell Distribution Width 13.9 11.0 - 16.0 % [facility] Platelet Count 348 160 - 400 X10*3/uL [facility] Mean Platelet Volume 9.1(L) 9.4 - 12.3 fL [facility] Neutrophils Percent Auto 56.2 45 - 73 % [facility] Imm Gran Pct Auto 0.1 0.0 - 0.4 % [facility] Lymphocytes Percent Auto 33.0 20 - 40 % [facility] Monocytes Percent Auto 8.2 2 - 11 % [facility] Eosinophils Percent Auto 2.1 0 - 4 % [facility] Basophils Percent Auto 0.4 0 - 2 % [facility] NRBC Pct Auto 0.0 0.0 - 0.2 /100WBC [facility] Neutrophils Absolute Auto 3.8 2.0 - 8.3 x10*3/uL [facility] Imm Gran Abs Auto 0.01 0.00 - 0.03 X10*3/uL [facility] Lymphocytes Absolute Auto 2.2 1.2 - 4.9 X10*3/uL [facility] Monocytes Absolute Auto 0.6 0.1 - 1.2 X10*3/uL [facility] Eosinophils Absolute Auto 0.1 0.0 - 0.4 X10*3/uL [facility] Basophils Absolute Auto 0.0 0.0 - 0.2 X10*3/uL [facility] NRBC Abs Auto 0.000 0.0 - 0.012 X10*3/uL [facility] 10/22/2024 6:35 PM EDT 10/22/2024 6:39 PM EDT us Generic External Data Provider LAB BLOOD ORDERAB LES Final Result Performing Organization Address [facility]/ZIP Co de Phone Number [facility] [address] [place] [phone] * Blood Culture (Second) (10/22/2024 5:03 PM EDT) Blood Venous blood specimen / Unknown 10/22/2024 5:03 PM EDT 10/23/2024 10:16 AM EDT Comment:Blood Narrative [facility] - 10/23/2024 10:16 AM EDT Blood Culture (Second) Test not performed NO SPECIMEN RECEIVED; DIFFICULT DRAW Specimen Source: Blood Generic External Data Provider LAB MICROBIOLOGY - GENERAL ORDERABLES Final Result Performing Organization Address [facility] Co de Phone Number [facility] [address] [place] [phone] documented in this encounter Visit Diagnoses Not on filedocumented in this encounter Additional Health Concerns Assessment Noted Time PHQ-9 Depression Total Score: 0 09/17/19 25 10:52 AM EST documented as of this encounter Care Teams Paper Slitter Relationship Specialty Start Date End Date Virginie Monet MD [address] [place] [phone] PCP - General Family Medicine 07/30/20 documented as of this encounter
--- OUTSIDE RECORDS SUMMARY | 2024-10-24 08:19 | XMS_ITS | Encounter Summary ---
Author Organization [employer] Address [address] [facility] [address] [place] [address] Care Team Providers Care Clinical Cytopathologist Name Role Phone Virginie Monet MD Primary Care Provide r Reason for Visit * Reason Comments Med Refill Encounter Details Date Type Department Care Team ([facility] st Contact Info) Description 10/19/2024 Refill [facility] [address] [place], [place] [phone] Virginie Monet MD [address] [place], [place] [phone] Essential hypertension Social History Tobacco Use Types [...] AM EDT Office Visit [facility] [address] [place] [phone] 12/18/2024 9:00 AM EDT Office Visit [address] [address] Virginie Monet MD [address] [place] [phone] documented as of this encounter Visit Diagnoses Diagnosis Essential hypertension Unspecified essential hypertension documented in this encounter Additional Health Concerns Assessment Noted Time PHQ-9 Depression Total Score: 0 09/17/19 25 10:52 AM EST documented as of this encounter Care Teams Clinical Cytopathologist Relationship Specialty Start Date End Date Virginie Monet MD [address] [place] [phone] PCP - General Family Medicine 07/30/20 documented as of this encounter
--- OUTSIDE RECORDS SUMMARY | 2024-10-24 08:19 | XMS_ITS | Data Portability ---
Author Organization [employer] Address [address] [place] [phone] Care Team Providers Care Trench Pipe Layer Helper Name Role Phone HIM CCA OTHER SHANKAR [...] Not Available Not Available No t Available [employer]le[employer] Ultra Test strips USE DIRECTED TWICE DAILY [...] active Not Available Not Available Not Available [place] COVID-19 Rapid At-Home kit TEST DIRECTED TODAY [...] SNOMED-CT Code Diagnosis ICD10 Code Diagnosis Note [id number] Bryce Rivera MD Main - [facility] [address] [place] [phone] 03/04/2024 20:21:06 03/04/2024 22:03:09 Headache [id number] R51.9 Reports a history of migraines, but [...] Wills Member ID Guarantor Name 03/04/2024 1 [facility] - DOS ON OR AFTER 2022 - DUAL ELIGIBLE - [facility] OPTIONS AND ONE CARE (MEDICARE REPLACEMENT/ADV ANTAGE - HMO) Shankar Martins [id number] Shankar Martins Notes Date Note Type Note Provider Name and Address Organization Details Recorded Time 03/04/2024 text/html [facility] Nurse Triage Notes (Racheal Pabon): Reason For Request: Pt reporting severe headache for 3 weeks>suffers from migraines and has taken medication with no improvements>162/90 BP Chief Complaints: Headache PMH: Hypertension, Other Allergies: No Known Pain Assessment: Level 10 out of 10 Comments: Tape Controlled Machine Stitcher verified the member's name//address and phone number. [...] ................... ................... ................... ................... ................... ................... ........ Account Review Specialist Note From Ho Joe: Dispatched to the [...] agreed to go by ambulance. 911 contacted [facility] on scene and [facility] took patient care. all times are approx.report completed by sarah joe ................... ................... ................... ................... ................... ................... ................... ........ Disposition: Fulfilled Bryce Rivera MD [address] [place] [address],[address], [place], [phone], [employer] 03/04/2024 21:30:34 OBGyn Episode No OBEpisode recorded.
--- OUTSIDE RECORDS SUMMARY | 2024-10-24 08:19 | XMS_ITS | Encounter Summary ---
Author Organization [employer] Address [address] [facility] [address] [place] [address] Care Team Providers Care Residential Solar Sales Consultant Name Role Phone Virginie Monet MD Primary Care Provide r Encounter Details Date Type Department Care Team ([facility] Contact Info) Description 10/24/2024 Orders Only GENERIC EXTERNAL DATA DEPARTMENT Provider, [...] Office Visit [facility] [address] [place] [phone] 12/18/2024 9:00 AM EDT Office Visit [facility] [address] [place] [phone] Virginie Monet MD [address] [place] [phone] documented as of this encounter Procedures Procedure Name Priority Date/Time Associated Diagnosis Comments URINALYSIS, COMPLETE, WITH REFLEX TO CULTURE Routine 10/24/2024 7:52 AM EDT CBC WITH AUTO DIFFERENTIAL Routine 10/24/2024 7:48 AM EDT documented in this encounter Results * (ABNORMAL) Urinalysis, Complete, with Reflex to Culture (10/24/2024 7:52 AM EDT) Color Urine Yellow [facility] Appearance Urine Cloudy [facility] PH 6.0 5.0 - 9.0 [facility] Glucose Urine UA Negative Negative mg/dL [facility] Urine Blood Negative Negative [facility] Specific [place] - Urine 1.025 1.005 - 1.025 [facility] Urine Protein Trace Neg-Trace mg/dL [facility] Urine Ketones Trace Negative mg/dL [facility] Nitrite Urine Negative Negative [facility] Leukocyte Esterase Urine Trace(A) Negative [facility] RBC Urine 0-2 0 - 2 /HPF [facility] Urine WBC 0-5 0 - 5 /HPF [facility] Urine Squamous Epithelial Cell >20 0 - 2 /HPF [facility] Urine Bacteria 4+ None Seen [facility] Hyaline Casts, Urine 0-2 0 - 2 /LPF [facility] 10/24/2024 7:52 AM EDT 10/24/2024 7:54 AM EDT Narrative [facility] - 10/24/2024 8:06 AM EDT [id number], Clean Catch us Generic External Data Provider LAB URINE ORDERAB LES Final Result [facility] [address] [place] [phone] * (ABNORMAL) CBC auto differential (10/24/2024 7:48 AM EDT) White Blood Count 5.9 4.8 - 10.8 X10*3/uL [facility] Red Blood Count 5.37 4.20 - 5.50 X10*6/uL [facility] Hemoglobin 14.5 12.0 - 16.0 g/dl [facility] Hematocrit 42.9 37.0 - 47.0 % [facility] Mean Corpuscular Volume 79.9(L) 80.0 - 98.0 fL [facility] Mean Corpuscular Hemoglobin 27.0 27.0 - 33.0 pg [facility] Mean Corpuscular HGB Conc 33.8 31.0 - 35.0 g/dl [facility] Red Cell Distribution Width 14.0 11.0 - 16.0 % [facility] Platelet Count 317 160 - 400 X10*3/uL [facility] Mean Platelet Volume 9.2(L) 9.4 - 12.3 fL [facility] Neutrophils Percent Auto 61.6 45 - 73 % [facility] Imm Gran Pct Auto 0.2 0.0 - 0.4 % [facility] Lymphocytes Percent Auto 29.3 20 - 40 % [facility] Monocytes Percent Auto 6.6 2 - 11 % [facility] Eosinophils Percent Auto 2.0 0 - 4 % [facility] Basophils Percent Auto 0.3 0 - 2 % [facility] NRBC Pct Auto 0.0 0.0 - 0.2 /100WBC [facility] Neutrophils Absolute Auto 3.6 2.0 - 8.3 x10*3/uL [facility] Imm Gran Abs Auto 0.01 0.00 - 0.03 X10*3/uL [facility] Lymphocytes Absolute Auto 1.7 1.2 - 4.9 X10*3/uL [facility] Monocytes Absolute Auto 0.4 0.1 - 1.2 X10*3/uL [facility] Eosinophils Absolute Auto 0.1 0.0 - 0.4 X10*3/uL [facility] Basophils Absolute Auto 0.0 0.0 - 0.2 X10*3/uL [facility] NRBC Abs Auto 0.000 0.0 - 0.012 X10*3/uL [facility] 10/24/2024 7:48 AM EDT 10/24/2024 7:51 AM EDT us Generic External Data Provider LAB BLOOD ORDERAB LES Final Result [facility] [address] [place] [phone] documented in this encounter Visit Diagnoses Not on filedocumented in this encounter Additional Health Concerns Assessment Noted Time PHQ-9 Depression Total Score: 0 09/17/19 25 10:52 AM EST documented as of this encounter Care Teams Residential Solar Sales Consultant Relationship Specialty Start Date End Date Virginie Monet MD [address] [place] [phone] PCP - General Family Medicine 07/30/20 documented as of this encounter
--- OUTSIDE RECORDS SUMMARY | 2024-10-24 08:20 | XMS_ITS | Encounter Summary ---
Author Organization [employer] Address [address] [place] [address] Care Team Providers Care Customer Experience Leader Name Role Phone Virginie Monet MD Primary Care Provide r Reason for Visit * Reason Onset Date Comments Appointment Request 06/25/2023 Encounter Details Date Type Department Care Team ([facility] Contact Info) Description 06/25/2023 Telephone [facility] [address], [place] [phone] Virginie Monet MD [address] [place] [phone] Appointment Request Social History Tobacco Use Types [...] call back to r/s appt on 06/25 play writer did cancel appt per patient request documented in this encounter Plan of Treatment Upcoming Encounters Date Type Department Care Team (Late st Contact Info) Description 11/04/2024 9:45 AM EDT Office Visit [facility] [address] [place] [phone] 12/18/2024 9:00 AM EDT Office Visit [facility] [address] [place] [phone] Virginie Monet MD [address] [place] [phone] documented as of this encounter Visit Diagnoses Not on filedocumented in this encounter Additional Health Concerns Assessment Noted Time PHQ-9 Depression Total Score: 0 05/29/20 23 2:13 PM EST documented as of this encounter Care Teams Customer Experience Leader Relationship Specialty Start Date End Date Virginie Monet MD [address] [place] [phone] PCP - General Family Medicine 07/30/20 documented as of this encounter
--- OUTSIDE RECORDS SUMMARY | 2024-10-24 08:20 | XMS_ITS | Clinical Summary ---
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 [place] 1 spray by intranasal route once; if [...] current use of insulin ([facility]) Use 1 sensor every 14 days per package directions 2 each 2022 Active Continuous Blood Gluc Synthetic Plasterer (FreeStyle Shane 2 [place]) deviceIndication s:Type 2 diabetes mellitus without complication, without long-term current use of insulin ([facility]) Use reader for CGM per [...] AND AT BEDTIME DIRECTED 2023 Active Lancets (AccordTouch Delica Plus [id number]) miscIndications: Type 2 diabetes mellitus with hyperglycemia, without long-term current use of insulin ([facility]) USE DIRECTED TWICE DAILY 100 each 11 2023 Active OneTouch Ultra Test test stripIndications :Type 2 diabetes mellitus with hyperglycemia, without long-term current use of insulin ([facility]) USE DIRECTED TWICE DAILY 100 [...] current use of insulin ([facility]) Check blood sugar before 1 [...] current use of insulin ([facility]) Inject 1 mg under the skin 1 (one) time per week. 2 each 3 2024 Active oxyCODONE (Roxicodone) 5 MG immediate release tabletIndication s:Chronic bilateral low back pain without sciatica Take 1 tablet (5 mg) by mouth every 8 (eight) hours if needed for severe pain for up to 28 days. 84 tablet 10/24 Active Continuous Glucose Synthetic Plasterer (FreeStyle Shane 3 [place]) deviceIndication s:Type 2 diabetes mellitus with hyperglycemia, [...] hyperglycemia, with long-term current use of insulin (CMS/[facility]) Use to test blood sugar [...] not trigger notification to Pharmacy)) Continuous Glucose Synthetic Plasterer (FreeStyle Shane 3 [place]) deviceIndication s:Type 2 diabetes mellitus with hyperglycemia, with long-term current use of insulin ([facility]) 1 each Once per day. Use as directed for CGM 1 each 09/30 Discontinued( Reorder (will not trigger notification to Pharmacy)) Continuous Glucose Sensor (FreeStyle Shane 3 Plus Sensor) miscIndications: Type 2 diabetes mellitus with hyperglycemia, with long-term current use of insulin ([facility]) 1 each every 15 days. Apply 1 every 15 days as directed for CGM 2 each 11 09/30 Discontinued( Reorder (will not trigger notification to Pharmacy)) glucose blood (FreeStyle Precision Arvin Test) test stripIndications :Type 2 diabetes mellitus with hyperglycemia, with long-term current use of insulin ([facility]) Use to test blood sugar [...] oxycodone 5mg Q8H PRN Indication: fibromyalgia Last [facility] Agreement: 01/09/24 Tier II (CO[facility]NER visits every 3 months) - last eval 09/16/24 by PCP Assessment & Plan (09/09/2024 2:42 PM EST): Timeline: - 09/09/24: Group visit, utox/pill count wnl OBY (obstructive sleep apnea) 05/27/2024 Overview (05/27/2024): very [...] AM EDT): Dr Radha Schulz (psychiatrist) phone [phone], is now taking over of her mental health and will take over her medications for mental health Diverticular disease 09/11/2023 Epigastric hernia 09/11/2023 Incisional hernia 09/11/2023 Osteoarthritis 09/11/2023 Assessment & Plan (10/11/2023 11:50 AM EDT): C/w PRN meds Patient will go to medical records for guidance for new MEDICAL MANAGEMENT TRAINER services Pain in both hands 08/27/2023 Assessment & Plan (10/11/2023 11:51 AM EDT): As above Class 2 severe obesity due t o excess calories with serious comorbidity in adult 05/29/2023 Assessment & Plan (05/16/2024 10:23 AM EDT): Discussed re weight reduction options including exercise, life style modifications, diet and referral to digital specialist. Recommended to decrease soda and sugary [...] Assessment & Plan (10/11/2023 11:52 AM EDT): MEDICAL MANAGEMENT TRAINER services will be requested Assessment & Plan [...] pill count as expected Pt prefers individual [facility] appointments, will schedule with Benita Mahmood RN [...] Encounters Date Type Department Care Team Description 10/24/2024 Orders Only GENERIC EXTERNAL DATA DEPARTMENT Provider, Generic External Data 10/23/2024 Telephone [facility] [address] [place] [address] Nemo Tapia RN ER Follow-up 10/22/2024 Orders Only GENERIC EXTERNAL DATA DEPARTMENT Provider, Generic External Data 10/19/2024 Refill [facility] [address] [place] [address] Virginie Monet MD Essential hypertension 10/14/2024 Refill [facility] [address] [place] [address] Virginie Monet MD Type 2 diabetes mellitus with hyperglycemia, without long-term current use of insulin (CMS/HCC) 10/14/2024 Travel 10/13/2024 Telephone [facility] [address] [place] [address] Siria English, KELSEY Results 10/13/2024 Travel 09/26/2024 Refill [facility] [address] [place] [address] Virginie Monet MD Chronic bilateral low back pain without sciatica 09/22/2024 Orders Only GENERIC EXTERNAL DATA DEPARTMENT Provider, Generic External Data 09/17/2024 Telephone [facility] [address] [place] [address] Virginie Monet MD MEDICAL MANAGEMENT TRAINER 09/16/2024 10:45 AM EST Office Visit [facility] [address] [place] [address] Virginie Monet MD Essential hypertension (Primary Dx); Type 2 diabetes mellitus without complication, without long-term current use of insulin (CMS/[facility]); Type 2 diabetes mellitus with hyperglycemia, with long-term current use of insulin (CMS/[facility]); Tear of meniscus of left knee as current injury, unspecified meniscus, unspecified tear type, initial encounter 09/16/2024 Refill [facility] [address] [place] [address] Virginie Monet MD Type 2 diabetes mellitus with hyperglycemia, with long-term current use of insulin (CMS/HCC) 09/16/2024 Travel 09/09/2024 9:45 AM EST Office Visit [facility] [address] [place] [address] Racheal Flynn FNP Fibromyalgia (Primary Dx); Long-term current use of opiate analgesic; Acute meniscal tear of left knee, subsequent encounter 09/09/2024 Telephone [facility] [address] [place], [place] [phone] Racheal Flynn FNP [facility] Tier 09/09/2024 Travel 08/29/2024 Refill [facility] [address] [place], [place] [phone] Virginie Monet MD Depression, unspecified depression type 08/27/2024 Refill [facility] [address] [place] [address] Virginie Monet MD Chronic bilateral low back pain without sciatica 08/26/2024 Refill [facility] [address] [place] [address] Virginie Monet MD Prediabetes 08/12/2024 9:45 AM EST Office Visit [facility] [address] [place] [address] Racheal Flynn, DESTINY Fibromyalgia (Primary Dx); Long-term current use of opiate analgesic 08/12/2024 Travel 08/05/2024 Refill [facility] [address] [place] [address] Virginie Monet MD 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 Orders Only [facility] External Provider, [facility] 08/01/2024 Refill [facility] [address] [place] [address] Virginie Monet MD Essential hypertension 07/30/2024 Refill [facility] [address] [place] [address] Virginie Monet MD Chronic bilateral low back pain without sciatica 07/28/2024 Telephone [facility] [address] [place] [address] Virginie Monet MD Appointment Request from Last [...] 11/04/2024 9:45 AM EDT Office Visit [facility] [address] [place] [address] [phone] 12/18/2024 9:00 AM EDT Office Visit [facility] [address] [place] [address] [phone] Virginie Monet MD [address] [place], [place] [phone] Health Maintenance Due Date Last Done Comments [...] AUTO DIFFERENTIAL Routine 10/24/2024 7:48 AM EDT MR KNEE WO CONTRAST RIGHT Routine 10/23/2024 7:15 AM EDT LIPASE Routine 10/22/2024 6:35 PM EDT COMPREHENSIVE METABOLIC PANEL Routine 10/22/2024 6:35 PM EDT LACTIC ACID Routine 10/22/2024 6:35 PM EDT CBC WITH AUTO DIFFERENTIAL Routine 10/22/2024 6:35 PM EDT SARS COV2/INFLUENZA A/B AND RSV RNA QL NAAT Routine 10/22/2024 6:35 PM EDT BLOOD CULTURE (FIRST) Routine 10/22/2024 6:34 PM EDT BLOOD CULTURE (SECOND) Routine 5:03 PM EDT GLUCOSE, WHOLE BLOOD Routine 09/22/2024 7:09 AM EDT POCT GLYCATED HEMOGLOBIN, TOTAL Routine 09/16/2024 10:52 AM EST Type 2 diabetes mellitus without complication, without long-term current use of insulin ([facility]) Type 2 diabetes mellitus with hyperglycemia, with long-term current use of insulin ([facility]) POCT GLUCOSE Routine 09/16/2024 10:52 AM EST Type 2 diabetes mellitus without complication, without long-term current use of insulin ([facility]) Type 2 diabetes mellitus with hyperglycemia, with long-term current use of insulin ([facility]) POCT AIMEE-14 URINE DRUG SCREEN [...] current use of insulin ([facility]) HIV 1/2 ANTIGEN/ANTIBODY, FOURTH GENERATION W/RFL Routine 04/22/2024 9:30 AM EDT Type 2 diabetes mellitus with hyperglycemia, without long-term current use of insulin ([facility]) ALBUMIN, RANDOM URINE W/CREATININE Routine 04/22/2024 9:30 AM EDT Type 2 diabetes mellitus with hyperglycemia, without long-term current use of insulin ([facility]) LIPID PANEL WITH REFLEX TO DIRECT LDL Routine 04/22/2024 9:30 AM EDT Type 2 diabetes mellitus with hyperglycemia, without long-term current use of insulin ([facility]) BI MAMMOGRAM SCREENING TOMOSYNTHESIS BILATERAL Routine 01/01/2024 8:00 AM EDT ZZZ HISTORICAL HPV MRNA E6/E7 Routine 02/27/2018 3:34 PM EDT PAP SMEAR Routine 02/27/2018 12:00 AM EDT HM COLONOSCOPY Routine 01/31/2017 from Last 3 Months or Most Recently Relevant to Health Maintenance Results * (ABNORMAL) Urinalysis, Complete, with Reflex to Culture (10/24/2024 7:52 AM EDT) Color Urine Yellow [facility] Appearance Urine Cloudy [facility] PH 6.0 5.0 - 9.0 [facility] Glucose Urine UA Negative Negative mg/dL [facility] Urine Blood Negative Negative [facility] Specific Ballinger - Urine 1.025 1.005 - 1.025 [facility] Urine Protein Trace Neg-Trace mg/dL [facility] Urine Ketones Trace Negative mg/dL [facility] Nitrite Urine Negative Negative [facility] Leukocyte Esterase Urine Trace(A) Negative [facility] RBC Urine 0-2 0 - 2 /HPF [facility] Urine WBC 0-5 0 - 5 /HPF [facility] Urine Squamous Epithelial Cell >20 0 - 2 /HPF [facility] Urine Bacteria 4+ None Seen [facility] Hyaline Casts, Urine 0-2 0 - 2 /LPF [facility] 10/24/2024 7:52 AM EDT 10/24/2024 7:54 AM EDT Narrative [facility] - 10/24/2024 8:06 AM EDT [id number], Clean Catch us Generic External Data Provider LAB URINE ORDERAB LES Final Result [facility] [address] [place] [address] [phone] * (ABNORMAL) CBC auto differential (10/24/2024 7:48 AM EDT) Only the most recent of2 resultswithin the time period is included. White Blood Count 5.9 4.8 - 10.8 X10*3/uL [facility] Red Blood Count 5.37 4.20 - 5.50 X10*6/uL [facility] Hemoglobin 14.5 12.0 - 16.0 g/dl [facility] Hematocrit 42.9 37.0 - 47.0 % [facility] Mean Corpuscular Volume 79.9(L) 80.0 - 98.0 fL [facility] Mean Corpuscular Hemoglobin 27.0 27.0 - 33.0 pg [facility] Mean Corpuscular HGB Conc 33.8 31.0 - 35.0 g/dl [facility] Red Cell Distribution Width 14.0 11.0 - 16.0 % [facility] Platelet Count 317 160 - 400 X10*3/uL [facility] Mean Platelet Volume 9.2(L) 9.4 - 12.3 fL [facility] Neutrophils Percent Auto 61.6 45 - 73 % [facility] Imm Gran Pct Auto 0.2 0.0 - 0.4 % [facility] Lymphocytes Percent Auto 29.3 20 - 40 % [facility] Monocytes Percent Auto 6.6 2 - 11 % [facility] Eosinophils Percent Auto 2.0 0 - 4 % [facility] Basophils Percent Auto 0.3 0 - 2 % [facility] NRBC Pct Auto 0.0 0.0 - 0.2 /100WBC [facility] Neutrophils Absolute Auto 3.6 2.0 - 8.3 x10*3/uL [facility] Imm Gran Abs Auto 0.01 0.00 - 0.03 X10*3/uL [facility] Lymphocytes Absolute Auto 1.7 1.2 - 4.9 X10*3/uL [facility] Monocytes Absolute Auto 0.4 0.1 - 1.2 X10*3/uL [facility] Eosinophils Absolute Auto 0.1 0.0 - 0.4 X10*3/uL [facility] Basophils Absolute Auto 0.0 0.0 - 0.2 X10*3/uL [facility] NRBC Abs Auto 0.000 0.0 - 0.012 X10*3/uL [facility] 10/24/2024 7:48 AM EDT 10/24/2024 7:51 AM EDT us Generic External Data Provider LAB BLOOD ORDERAB LES Final Result Performing Organization Address City/State/[facility] Co de Phone Number [facility] [address] [place] [address] [phone] * MR Knee w/o Contrast Right (10/23/2024 7:15 AM EDT) Anatomical Region Laterality Modality Magnetic Resonan ce 10/23/2024 7:15 AM EDT Narrative 10/23/2024 8:20 AM EDT ? [facility] ?[address] ?[place] [address] ? Magnetic Resonance Report ? Signed ? Patient: Martins,Anastasia ?MR#: [id number] ?? 07 ? : 1965 ?Acct:[id number] ? Age/Sex: 59 / F ?ADM Date: 04/10/25 ? Loc: HO.MRI ? Attending Dr: Pete Varela MD ? Ordering Physician: Pete Varela MD ?? Date of Service: 10/23/24 ?? Procedure(s): MR knee RT wo con ?? Accession Number(s): [id number] ? cc: Virginie Monet MD; Pete Varela [...] DD/ 0715 ? TD/TT: 10/23/24 0750 ? Project Surveyor: ? Procedure Note Donpamter, Image - 10/23/2024 [place] [address] Magnetic Resonance Report Signed Patient: Virginie Martins#: [id number] 07 : 1965Acct:[id number] Age/Sex: 59 / FADM Date: 10/23/24 Loc: HO.MRI Attending Dr: Pete Varela MD Ordering Physician: Pete Varela MD Date of Service: 10/23/24 Procedure(s): MR knee RT wo con Accession Number(s): [id number] cc: Virginie Monet MD; Pete Varela MD [...] 10/23/2024 08:18 AM EDT Dictated By: George Main MD Signed By: <Electronically signed by George Main MD in OV> 10/23/24 0818 DD/ 0715 TD/TT: 10/23/24 0750 Project Surveyor: [facility] External Provider IMG MRI PROCEDURES Final Result * SARS-CoV-2 RNA, Influenza A/B, and RSV RNA, Ql NAAT (10/22/2024 6:35 PM EDT) Influenza A PCR NEGATIVE Negative [facility] Influenza B PCR NEGATIVE Negative [facility] Resp Syncy Virus RNA Qual PCR NEGATIVE Negative [facility] SARS COV2 PCR NEGATIVE Negative [facility] Comment:All test results mus t be [...] use by authorized laboratories.Testing performed on the [employer] GeneXpert utilizingreal-time RT-PCR.All SARS CoV2 and positive influenza A/B results arereported to [facility]. 10/22/2024 6:35 PM EDT 10/22/2024 6:39 PM EDT Generic External Data Provider LAB MICROBIOLOGY - GENERAL ORDERABLES Final Result Performing Organization Address [facility] Co de Phone Number [facility] [address] [place] [phone] * Lipase (10/22/2024 6:35 PM EDT) Lipase 41 8 - 78 U/L [facility] 10/22/2024 6:35 PM EDT 10/22/2024 6:39 PM EDT Generic External Data Provider LAB BLOOD ORDERAB LES Final Result Performing Organization Address [facility] Co de Phone Number [facility] [address] [place] [phone] * Lactic Acid (10/22/2024 6:35 PM EDT) Lactic Acid 1.9 0.5 - 2.0 mmol/L [facility] 10/22/2024 6:35 PM EDT 10/22/2024 6:39 PM EDT us Generic External Data Provider LAB BLOOD ORDERAB LES Final Result [facility] [address] [place] [address] [phone] * (ABNORMAL) Comprehensive Metabolic Panel (10/22/2024 6:35 PM EDT) Sodium 141 135 - 145 mmol/L [facility] Potassium 3.5 3.3 - 5.1 mmol/L [facility] Chloride 106 96 - 108 mmol/L [facility] Carbon Dioxide 27 22 - 29 mmol/L [facility] Anion Gap 12 12 - 20 [facility] Urea Nitrogen (BUN) 13 9 - 16 mg/dL [facility] Creatinine, Serum 0.66 0.5 - 1.4 mg/dL [facility] Creatinine Clr Calc Pharmacy 112.2 [facility] Comment:Provided height and weight: 170.18 cm,101.2 kg.eGFR (calculated from the MDRD study equation) and eCrCl(calculated from the Cockcroft-Gault equation) are based ondifferent parameters and may not yield comparable results.If eCrCl result is absurd, please check patient'sheight/weight. Estimated Glomerular Filt Rate >60 [facility] Comment:Chronic Kidney Disea se: Estimated GFR < 60 mL/min/1.25o7Zoooxv Kidney Disease: Estimated GFR < 15 mL/min/1.73m2 Glucose 161(H) 60 - 115 mg/dL [facility] Calcium 10.0 8.4 - 10.2 mg/dL [facility] Bilirubin, Total 0.4 0.0 - 1.0 mg/dL [facility] Aspartate Amino Transferase 38(H) 5 - 31 U/L [facility] Alanine Aminotransferase 59(H) 0 - 31 U/L [facility] Total Protein 7.8 6.5 - 8.0 g/dL [facility] Albumin Level 4.2 3.5 - 5.0 g/dL [facility] Alkaline Phosphatase 126(H) 39 - 117 U/L [facility] 10/22/2024 6:35 PM EDT 10/22/2024 6:39 PM EDT us Generic External Data Provider LAB BLOOD ORDERAB LES Final Result Performing Organization Address [facility] Co de Phone Number [facility] [address] [place] [phone] * Blood Culture (Second) (10/22/2024 5:03 PM EDT) Blood Venous blood specimen / Unknown 10/22/2024 5:03 PM EDT 10/23/2024 10:16 AM EDT Comment:Blood Narrative [facility] - 10/23/2024 10:16 AM EDT Blood Culture (Second) Test not performed NO SPECIMEN RECEIVED; DIFFICULT DRAW Specimen Source: Blood Generic External Data Provider LAB MICROBIOLOGY - GENERAL ORDERABLES Final Result Performing Organization Address [facility] de Phone Number [facility] [address] [place] [phone] * (ABNORMAL) Glucose, Whole Blood (09/22/2024 7:09 AM EDT) Glucose, Whole Blood 204(H) 60 - 115 mg/dL [facility] Comment:METER #: [id number] 09/22/2024 7:09 AM EDT 09/22/2024 7:14 AM EDT us Generic External Data Provider LAB BLOOD ORDERAB LES Final Result Performing Organization Address [facility] Co de Phone Number [facility] [address] [place] [phone] * (ABNORMAL) POCT HGB A1C (09/16/2024 [...] - 09/09/2024 1:39 PM EST UTO[employer] cup Lot#[id number] Exp. 03/04/26 Internal Pass Control Racheal Flynn SENIOR QUALITY ASSURANCE ENGINEER POINT OF CARE TEST ENTER/EDIT ORDERABLES Final Result * MR Knee w/o Contrast Left (08/02/2024 8:54 AM EST) Anatomical Region Laterality Modality Magnetic Resonan ce 08/02/2024 8:54 AM EST Narrative 08/02/2024 8:56 AM EST ? [facility] [facility] ?[address] ?[place] [address] ? Magnetic Resonance Report ? Signed ? Patient: Martins,Anastasia ?MR#: [id number] ?? 07 ? : 1965 ?Acct:[id number] ? Age/Sex: 58 / F ?ADM Date: 08/01/24 ? Loc: HO.MRI ? Attending Dr: Pete Varela MD ? Ordering Physician: Pete Varela MD ?? Date of Service: 08/01/24 ?? Procedure(s): MR knee LT wo con ?? Accession Number(s): [id number] ? cc: Virginie Monet MD; Pete Varela [...] DD/ 0854 ? TD/TT: 08/02/24 0854 ? Project Surveyor: ? Procedure Note Donpamter, Image - 08/02/[address] [address] Magnetic Resonance Report Signed Patient: Virginie Martins#: [id number] 07 : 1965Acct:[id number] Age/Sex: 58 / FADM Date: 08/01/24 Loc: HO.MRI Attending Dr: Pete Varela MD Ordering Physician: Pete Varela MD Date of Service: 08/01/24 Procedure(s): MR knee LT wo con Accession Number(s): [id number] cc: Virginie Monet MD; Pete Varela MD [...] in OV> 08/02/24 0855 DD/ TD/TT: 08/02/2454 Project Surveyor: [facility] External Provider IMG MRI PROCEDURES Final Result * Lipid Panel with Reflex to Direct LDL (04/22/2024 9:30 AM EDT) Triglycerides 149 <150 mg/dL [facility] Comment:Desirable Triglyceri de: less than 150 mg/dLBorderline High Triglyceride 150-199 mg/dLHigh Triglyceride: 200-499 mg/dLVery High Triglyceride: greater than or equal to 5OO mg/dL Cholesterol 154 <200 mg/dL [facility] Comment:Desirable Cholestero l: less than 200 mg/dLBorderline High Cholesterol: 200-239 mg/dLHigh Cholesterol: greater than 239 mg/dL LDL Cholesterol Calculated 79 <100 mg/dL [facility] Comment:Desirable LDL: less than 100 mg/dLNear Optimal/Above Optimal LDL: 110- 129 mg/dLBorderline High LDL: 130-159 mg/dLHigh LDL: 160-189 mg/dLVery High LDL: greater than or equal to 190 mg/dL HDL Cholesterol 46 >40 mg/dL [facility] Comment:Desirable HDL: great er than 40 mg/dL Note: This HDL assay may give artificially low results in patients with liver disease. Blood 04/22/2024 9:30 AM EDT 04/22/2024 11:35 AM EDT Virginie Lopez MD LAB BLOOD ORDERABLES Final Result Performing Organization Address [facility] de Phone Number [facility] [address] [place] [phone] * Hepatitis C Viral RNA, Quantitative, Real-Time PCR (04/22/2024 9:30 AM EDT) Pathologist [facility] Hepatitis C Viral Load <15 NOT DETECTED NOT DETECTED IU/mL [facility] HCV Log PCR <1.18 NOT DETECTED NOT DETECTED Log IU/mL [facility] Comment:For additional infor екатерина, please refer tohttp://education.e-Rewards/faq/XNT13c9(This link is being provided for informational/educational purposes only.)THIS TEST WAS PERFORMED AT:[facility] [place] [phone] PERRY MD Blood 04/22/2024 9:30 AM EDT 04/22/2024 11:35 AM EDT Virginie Lopez MD LAB BLOOD ORDERABLES Final Result Performing Organization Address [facility] de Phone Number [facility] [address] [place] [phone] * Albumin, Random Urine W/Creatinine (04/22/2024 9:30 AM EDT) Pathologist [facility] Creatinine, Urine 193.55 mg/dL [facility] [facility] Microalbumin Urine 16.0 mg/L [facility] Microalbum Creatinine Ratio Ur 8.2 <30 ug/mg cr [facility] Comment:Albumin/Creatinine R atio Reference Ranges: Normal: < 30 ug/mg creatinine Microalbuminuria: 30 - 300 ug/mg creatinineClinical Albuminuria: > 300 ug/mg creatinine Urine (Urine, Random) 04/22/2024 9:30 AM EDT 04/22/2024 11:23 AM EDT us Virginie Lopez MD LAB URINE ORDERABLES Final Result Performing Organization Address [facility]/ZIP Co de Phone Number [facility] [address] [place] [phone] * HIV-1/2 Antigen and Antibodies, Fourth Generation, with Reflexes (04/22/2024 9:30 AM EDT) HIV AB/AG Nonreactive Nonreactive [facility] Comment:HIV-1 p24 Ag and/or HIV-1/HIV-2 Ab not detected.A test result that is nonreactive does not exclude thepossibility of exposure to or infection with HIV-1 and/orHIV-2. Nonreactive results in this assay for individualswith prior exposure to HIV-1 and/or HIV-2 may be due toantigen and antibody levels that are below the limit ofdetection of this assay.The [employer] HIV Ag/Ab Combo assay result andsupplemental assay results should be interpreted inconjunction with the patient's clinical presentation,history and other laboratory results. If the results areinconsistent with clinical evidence, additional testing issuggested to confirm the result. Blood Venous blood specimen / Unknown 04/22/2024 9:30 AM EDT 04/22/2024 11:35 AM EDT us Virginie Lopez MD LAB BLOOD ORDERABLES Final Result Performing Organization Address [facility]/ZIP Co de Phone Number [facility] [address] [place] [phone] * BI Mammogram Screening Tomosynthesis Bilateral (01/01/2024 8:00 AM EDT) Anatomical Region Laterality Modality Breast Bilateral Mammography 01/01/2024 8:00 AM EDT Narrative 01/29/2024 3:53 PM EDT ? [facility] ? [address] ?[place] [address] ? Mammography Report ? Signed ? Patient: Martins,Anastasia ?MR#: [id number] ?? 07 ? : 1965 ?Acct:[id number] ? Age/Sex: 58 / F ?ADM Date: 01/01/24 ? Loc: HO.MAMMO ? Attending Dr: Virginie Lopez MD ? Ordering Physician: Virginie Monet MD ?Results: ?? 1Negative ? Date of Service: 01/01/24 ?Follow Up: 1 Year From Orig ?? inal Mammogram ? Procedure(s): MM tomosynthesis screening BI ?? Accession Number(s): [id number] ? cc: Virginie Monet MD ? EXAMINATION: [...] 1549 ? DD/ 0800 ? TD/TT: ? Project Surveyor: ? Procedure Note Gema, Mauricio - 01/29/2024 [facility] [facility] [address] [place] [address] Mammography Report Signed Patient: Virginie Martins AMR#: [id number] 07 : 1965Acct:[id number] Age/Sex: 58 / FADM Date: 01/01/24 Loc: HO.MAMMO Attending Dr: Virginie Lopez MD Ordering Physician: Virginie Monet MDResults: 1Negative Date of Service: 01/01/24Follow Up: 1 Year From Orig inal Mammogram Procedure(s): MM tomosynthesis screening BI Accession Number(s): [id number] cc: Virginie Monet MD EXAMINATION: MM SCREENING [...] in OV> 01/29/24 1549 DD/ 0800 TD/TT: Project Surveyor: Virginie Lopez MD IMG BI PROCEDURES Fin al Result * HPV mRNA E6/E7 (02/27/2018 3:34 PM EDT) HPV mRNA E6/E7 Not Detected NOT DETECTED [facility] Comment: This test was performed using the APTIMA(R) HPV Assay ([employer] This assay detects E6/E7 viral messenger RNA (mRNA) from 14 high-risk HPV types (16,18,31,33,35,39,45,51, 52,56,58,59,66,68). For additional information please refer to: http://education.e-Rewards/faq/ITG932k6 (This link is being provided for informational/ educational purposes only.) The analytical performance characteristics of this assay have been determined by [employer] [place], [place]. The modifications have not been cleared or approved by the FDA. This assay has been validated pursuant to the CLIA regulations and is used for clinical purposes. Test Performed by [facility], [address] [place], [address] [place], [place] Adriel Barclay M.D., Ph.D., Director of Laboratories , CLIA [id number] Please note: ??Effective 03/27/2016, HPV testing will be performed using [employer]'s APTIMA test which targets mRNA. Detecting mRNA instead of DNA, as in older methods, offers significant improvements in specificity. 02/27/2018 3:34 PM EDT Ela Kern CNM HISTORICAL/NON ORDERABLE LABS Final Result [facility] [address] * Pap Smear (02/27/2018 12:00 AM EDT) Swab Ela Kern CNM LAB CYTOLOGY ORDERABLES F inal Result [facility] [address] [place] [address] [phone] * Colonoscopy (01/31/2017) Colonoscopy Normal Normal Narrative Ashley Recio - 01/31/2017 Repeat colonoscopy in 10 years . Results are in [facility] 01/31/2017 Historical Provider MD HEALTH MAINTENANCE Final Result from Last 3 Months or Most Recently Relevant to Health Maintenance Insurance 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
--- OUTSIDE RECORDS SUMMARY | 2024-10-24 08:20 | XMS_ITS | Encounter Summary ---
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 Contact pt at [phone] documented in this encounter Plan of Treatment Upcoming Encounters Date Type Department Care Team (Late st Contact Info) Description 11/04/2024 9:45 AM EDT Office Visit [facility] MED[facility]INE [address] [place] [phone] 12/18/2024 9:00 AM EDT Office Visit [facility] [address] [place] [phone] Virginie Monet MD [address] [place] [phone] documented as of this encounter Visit Diagnoses Not on filedocumented in this encounter Additional Health Concerns Assessment Noted Time PHQ-9 Depression Total Score: 0 09/17/19 25 10:52 AM EST documented as of this encounter Care Teams Enrober Tender Relationship Specialty Start Date End Date Virginie Monet MD [address] [place] [address] PCP - General Family Medicine 07/30/20 documented as of this encounter
--- OUTSIDE RECORDS SUMMARY | 2024-10-24 08:20 | XMS_ITS | Clinical Summary ---
Author Organization [facility] Address [address] [place] [address] Care Team Providers Care Client Delivery Manager Name Role Phone Unavailable Primary Care Provider [...]
[2024-10-24 08:21] VITALS: BP 170/63; PULSE 94; RESP 16; TEMP 37; O2SAT 97
[2024-10-24 08:21] LABS: Alanine Aminotransferase 42 U/L (0-31); Albumin Level 3.9 g/dL (3.5-5.0); Alkaline Phosphatase 111 U/L (39-117); Anion Gap 15 (12-20); Aspartate Amino Transferase 17 U/L (5-31); Bilirubin Direct 0.2 mg/dL (0.0-0.5); Bilirubin Total 0.3 mg/dL (0.0-1.0); Blood Urea Nitrogen 11 mg/dL (9-16); Calcium 9.7 mg/dL (8.4-10.2); Carbon Dioxide 23 mmol/L (22-29); Chloride 105 mmol/L (96-108); Creatinine Clr Calc Pharmacy 114.3; Estimated Glomerular Filt Rate > 60; Glucose Random 235 mg/dL (60-115); Lipase 46 U/L (8-78); Magnesium 1.8 mg/dL (1.6-2.6); Potassium 3.6 mmol/L (3.3-5.1); Sodium 139 mmol/L (135-145); Total Protein 7.2 g/dL (6.5-8.0)
--- NOTE | 2024-10-24 09:55 | PC.NURSE ---
Addendum entered by Jo-Ann Franklin 10/24/24 11:07: attempted and iv access but the pt is extremely difficult stick, tried once and failed and the pt refused a second attempt Original Note: pt is alert and oriented, skin appropriate for ethnicity, respirations even and unlabored, pt is reporting medial and right upper abd pain x1 week, with n/v/d, bowel sounds in all 4 quadrants, abd soft but slightly tender on the upper right, pt has hx of cholecystectomy years ago, and Hep C years ago
[2024-10-24 10:11] VITALS: BP 142/54; PULSE 82; RESP 16; TEMP 36.4; O2SAT 98
--- NOTE | 2024-10-24 10:27 | ED_ITS ---
HPI - Abdominal Pain General Chief Complaint: Abdominal Pain Stated Complaint: upper abd pain Time Seen by Provider: 10/24/24 09:56 Source: patient, RN notes reviewed and old records reviewed Mode of arrival: ambulatory Limitations: no limitations History of Present Illness ED Provider: Nisreen Sunshine PA-C HPI narrative: 59 year old female with PMHx asthma, COPD, CAD, HTN, Hashimotos thyroiditis, BOY, T2DM, Hep C (tx 30 years ago), diverticulitis s/p colectomy, cholecystectomy, presenting to ED c/o worsening RUQ abd pain radiating to back with associated, N/V/D x 1.5 weeks. She describes the abd pain as constant dull, worse after eating/drinking. Denies fevers, CP, SOB, urinary complaints, blood in vomit/stool, recent sickness/sick contacts. Denies alc/drug use. Reports smoking 6 cigarettes daily. MD elicited complaint: abdominal pain Related Data Home Medications ?Medication ?Instructions ?Recorded ?Confirmed duloxetine 60 mg capsule,delayed 60 mg PO DAILY 08/18/21 10/07/24 release ropinirole 3 mg tablet 3 mg PO BEDTIME 10/06/21 10/07/24 amitriptyline 75 mg tablet 75 mg PO BEDTIME 11/28/21 10/07/24 omeprazole 20 mg capsule,delayed 20 mg PO BID 11/28/21 10/07/24 release aripiprazole 2 mg tablet 2 mg PO DAILY 02/16/22 10/07/24 CPAP (CPAP Machine/Device) 10/27/22 10/07/24 nebulizers 10/27/22 10/07/24 ibuprofen 800 mg tablet 800 mg PO Q8H PRN Pain 12/20/22 10/07/24 nebulizers 10/12/23 10/07/24 semaglutide 0.25 mg or 0.5 mg (2 0.5 mg subcut QWEEK 07/07/24 10/07/24 mg/3 mL) subcutaneous pen injector (Ozempic) Previous Rx's ?Medication ?Instructions ?Recorded lancets 28 gauge (FreeStyle #50 ea 11/16/20 Lancets) naloxone 4 mg/actuation nasal 4 mg intranasal Q2M PRN opioid 09/01/21 spray (Narcan) overdose #2 ea levothyroxine 125 mcg tablet 125 mcg PO DAILY 30 days #30 tabs 01/23/22 atorvastatin 40 mg tablet 40 mg PO DAILY #60 tabs 06/20/23 hydrochlorothiazide 12.5 mg tablet 12.5 mg PO DAILY #90 tabs 06/20/23 albuterol sulfate 90 mcg/actuation 2 puff PO Q6H PRN for wheezing 30 03/21/24 aerosol inhaler days #8.5 grams acetaminophen 500 mg tablet 500 mg PO Q6H PRN fever or pain 05/12/24 (Tylenol Extra Strength) #14 tabs fluticasone fur. 200 mcg-umeclid 1 inh inhalation DAILY 30 days #60 08/26/24 62.5 mcg-vilant 25 mcg ea inhalat.powder (Trelegy Ellipta) albuterol sulfate 2.5 mg/3 mL 2.5 mg (3 mL) continuous 08/29/24 (0.083 %) solution for nebulization nebulization QID PRN for wheezing #180 mL isosorbide mononitrate 30 mg 30 mg PO DAILY #60 tabs 09/03/24 tablet,extended release 24 hr oxycodone 5 mg tablet 5 mg PO Q6H PRN pain #20 tabs 09/22/24 Allergies Allergy/AdvReac Type Severity Reaction Status Date / Time adhesive tape Allergy Severe BLISTERS Verified 10/24/24 07:39 Tetanus Vaccines and Toxoid Allergy Intermediate SWELLING, Verified 10/24/24 07:39 [TETANUS VACCINES & TOXOID] REDNESS surgical tape Allergy Severe hives/boils Uncoded 10/24/24 07:39 Review of Systems Review of Systems Yes all other systems are reviewed and are negative Constitutional: Reports as per [facility] Past Medical History Attestation statement: The following information was validated with the patient. Source: old records reviewed Medical History Coronary artery disease Nicotine dependence, cigarettes, uncomplicated Pulmonary hypertension Dyspnea Vitamin D deficiency Mixed irritable bowel syndrome Michael's thyroiditis Fibromyalgia Type 2 diabetes mellitus Obesity (BMI 30-39.9) Hypothyroidism BOY (obstructive sleep apnea) Hypertension Pulmonary nodules Asthma-COPD overlap syndrome Surgical History History of colon resection History of cholecystectomy History of colonoscopy History of esophagogastroduodenoscopy (EGD) History of lithotripsy History of surgery on right wrist History of excision of mass (09/28/21) History of elbow surgery Status post tendon repair Status post trigger finger release H/O hand surgery H/O excision of ganglion cyst H/O arthroscopy of right knee Family History Family History Father Myocardial infarction Hypertension Diabetes CVD (cardiovascular disease) Mother Restless leg syndrome Diabetes Paternal Aunt Breast cancer Uterine cancer Social History Social History Are you a primary animal care supervisor to a significant other at home: No Do you presently have visiting nurse or other home services: Yes (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, 2 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) Alcohol intake: former Patient Tobacco Use Status: Current everyday Tobacco user Tobacco use type: Cigarette Cigarettes Per Day: 6 Years Smoked: 30 Smoked in Last 30 Days: Yes Use of substances other than those prescribed or required for medical reasons: No Advance Directives: No Advance Directives Information Provided: Yes Physical Exam ED Vital Signs: Vital Signs - 24 hr 10/24/24 07:36 10/24/24 08:21 10/24/24 10:11 Temperature 96.8 F 98.6 F 97.6 F Pulse Rate 104 H 94 82 Respiratory Rate 22 H 16 16 Blood Pressure 157/69 H 170/63 H 142/54 H Pulse Oximetry 96 97 98 Oxygen Delivery Method Room Air Room Air Room Air 10/24/24 12:18 Temperature 97.3 F Pulse Rate 93 Respiratory Rate 18 Blood Pressure 126/61 Pulse Oximetry 98 Oxygen Delivery Method Room Air BMI result Body Mass Index 34.0 Const General: cooperative, healthy appearing and no acute distress Orientation/consciousness: patient oriented x3 Limitations: no limitations HENMT Head: Yes normal to inspection and Yes atraumatic Ears: hearing grossly normal bilaterally General nose exam: Normal external nose present Face and sinus: Yes normal facial exam Eyes General: appearance normal, both eyes and all related structures EOM: EOMs intact bilaterally Neck Neck: Yes normal visual inspection and Yes no meningeal signs Resp Effort & Inspection: normal respiratory effort and no respiratory distress Auscultation: clear to auscultation bilaterally Cardio Rate: regular rate Heart sounds: S1 normal heart sound present and S2 normal heart sound present GI Other: Previous surgical scars noted. Inspection: Yes normal to inspection, No abdominal wall ecchymosis and Yes scar Palpation (GI): Soft to palpation, Tenderness to palpation present (GI) in the epigastrum, in the LLQ and in the RUQ; with no rebound tenderness and not rigid General: Yes no CVA tenderness Back/Spine/Pelvis Back: no CVA tenderness Skin General skin exam: no rashes or lesions noted and scars Rashes: no rashes Wounds: no wounds Neuro General: patient oriented x3, tone normal and no meningeal signs Cranial nerves: Yes CN's II-XII intact bilaterally Gait exam (Neuro): Normal gait present Extrem General: Yes normal to inspection Course Course Course Narrative: -1114-- no leukocytosis. Labs otherwise reassuring. Glucose elevated to 235, will repeat after IVF - ALT chronically elevated - UA contaminated CT abdomen pelvis w IV con IMPRESSION: No acute findings in the abdomen or pelvis > IV infiltrated after contrast injected. Warm packs applied >1319-- patient requesting discharge at this time. Recommen close PCP/GI follow-up - patient left prior to discharge paperwork Medical Decision Making Medical Decision Making [facility] Narrative: 59 year old female with PMHx asthma, COPD, CAD, HTN, Hashimotos thyroiditis, BOY, T2DM, Hep C (tx 30 years ago), diverticulitis s/p colectomy, cholecystectomy, presenting to ED c/o worsening RUQ abd pain radiating to back with associated, N/V/D x 1.5 weeks. on exam initially hypertensive and tachycardic likely from pain, NAD, nontoxic appearing, abdomen soft with epigastric / RUQ and left lower quadrant tenderness, no rebound or guarding. Concern for diverticulitits vs CBD dilation vs pancreatitis vs ?appendicitis vs gastroenteritis vs nephrolithiasis/renal stone. Lower suspicion for SBO, pyelonephritis, mesenteric ischemia, AAA, aortic dissection, acute RI, DKA. Low suspicion for severe sepsis at this time Plan: labs, UA, CT abd/pelvis, IVF, pain control Differential Diagnosis Differential Diagnoses: The differential diagnosis associated with the presentation includes As above Admission/Observation Consideration of admission/observation: Escalation of care including admission/observation considered Lab Data [facility] Lab Attestation statement: I reviewed the patient's lab results. 10/24/24 07:48 10/24/24 07:48 Labs: Lab Results 10/24/24 10/24/24 Range/Units 07:48 07:52 WBC 5.9 (4.8-10.8) X10*3/uL RBC 5.37 (4.20-5.50) X10*6/uL Hgb 14.5 (12.0-16.0) g/dl Hct 42.9 (37.0-47.0) % MCV 79.9 L (80.0-98.0) fL MCH 27.0 (27.0-33.0) pg MCHC 33.8 (31.0-35.0) g/dl RDW 14.0 (11.0-16.0) % Plt Count 317 (160-400) X10*3/uL MPV 9.2 L (9.4-12.3) fL Immature Gran % (Auto) 0.2 (0.0-0.4) % Neut % (Auto) 61.6 (45-73) % Lymph % (Auto) 29.3 (20-40) % Moffat % (Auto) 6.6 (2-11) % Eos % (Auto) 2.0 (0-4) % Baso % (Auto) 0.3 (0-2) % Lymph # (Auto) 1.7 (1.2-4.9) X10*3/uL M[place]at # (Auto) 0.4 (0.1-1.2) X10*3/uL Eos # (Auto) 0.1 (0.0-0.4) X10*3/uL Baso # (Auto) 0.0 (0.0-0.2) X10*3/uL Abs Immat Gran (auto) 0.01 (0.00-0.03) X10*3/uL Absolute Neuts (auto) 3.6 (2.0-8.3) x10*3/uL Absolute Nucleated RBC 0.000 (0.0-0.012) X10*3/uL Nucleated RBC % (auto) 0.0 (0.0-0.2) /100WBC Sodium 139 (135-145) mmol/L Potassium 3.6 (3.3-5.1) mmol/L Chloride 105 (96-108) mmol/L Carbon Dioxide 23 (22-29) mmol/L Anion Gap 15 (12-20) BUN 11 (9-16) mg/dL Creatinine 0.66 (0.5-1.4) mg/dL Estim Creat Clear Calc 114.3 Estimated GFR > 60 Random Glucose 235 H (60-115) mg/dL Calcium 9.7 (8.4-10.2) mg/dL Magnesium 1.8 (1.6-2.6) mg/dL Total Bilirubin 0.3 (0.0-1.0) mg/dL Direct Bilirubin 0.2 (0.0-0.5) mg/dL AST 17 (5-31) U/L ALT 42 H (0-31) U/L Alkaline Phosphatase 111 (39-117) U/L Total Protein 7.2 (6.5-8.0) g/dL Albumin 3.9 (3.5-5.0) g/dL Lipase 46 (8-78) U/L Urine Color Yellow Urine Appearance Cloudy Urine pH 6.0 (5.0-9.0) Ur Specific [place] 1.025 (1.005-1.025) Urine Protein Trace (Neg-Trace) mg/dL Urine Glucose (UA) Negative (Negative) mg/dL Urine Ketones Trace (Negative) mg/dL Urine Blood Negative (Negative) Urine Nitrite Negative (Negative) Ur Leukocyte Esterase Trace H (Negative) Urine RBC 0-2 (0-2) /HPF Urine WBC 0-5 (0-5) /HPF Ur Squamous Epith Cells >20 (0-2) /HPF Urine Bacteria 4+ (None Seen) Hyaline Casts 0-2 (0-2) /LPF Independent Interpretation I performed an independent interpretation of an: CT Scan Radiology Impression Discussion of test interpretation with radiology: I have reviewed the radiologist's reading. External Record Review External record reviewed: Inpatient record, Office record, Outpatient record, Prior outpatient labs, Prior outpatient radiology, Primary care record and Outside ED record Tests considered The following testing was considered but not selected: As above Prescription Management I considered prescription management with: Pain Medication and Other Chronic Conditions Patient?s care impacted by: Diabetes Social Determinants Patient?s care significantly limited by Social Determinants of Health including: Other Social Determinant of Health Medications Administered Discontinued Medications Generic Name Dose Route Start Last Admin Trade Name Freq PRN Reason Stop Dose Admin Al Hydroxide/Mg Hydroxide 30 ml 10/24/24 12:44 10/24/24 13:14 Magnesium Hydrox/Alum Hydrox 30 Ml Oral.Susp PO 10/24/24 12:45 Not Given ONCE ONE Dicyclomine HCl 20 mg 10/24/24 12:44 10/24/24 13:14 Dicyclomine Hcl 10 Mg Capsule PO 10/24/24 12:45 Not Given ONCE ONE Famotidine 20 mg 10/24/24 12:44 10/24/24 13:14 Famotidine 20 Mg Tablet PO 10/24/24 12:45 Not Given ONCE ONE Sodium Chloride 1,000 mls @ 999 mls/hr 10/24/24 10:30 10/24/24 11:33 Ns IV 10/24/24 11:30 999 mls/hr .Q1H1M HOME Administration Iohexol 100 ml 10/24/24 11:54 10/24/24 11:54 Iohexol 350 Mg/Ml 100 Ml Infus..Btl IV 10/24/24 11:55 85 ml ONCE ONE Administration Ketorolac Tromethamine 15 mg 10/24/24 10:25 10/24/24 11:30 Ketorolac Tromethamine 15 Mg/Ml Vial IVPUSH 10/24/24 10:26 15 mg ONCE ONE Administration Ondansetron HCl 4 mg 10/24/24 10:25 10/24/24 11:30 Ondansetron Hcl 4 Mg/2 Ml Vial IVPUSH 10/24/24 10:26 4 mg ONCE ONE Administration Discharge Plan Discharge Clinical Impression: Abdominal pain Patient Disposition: Home, Self-Care Instructions: Abdominal Pain (ED) Additional Instructions: your blood work, urine, and CAT scan are reassuring please have close follow-up with your primary care doctor as well as Gastroenterology, please call to make an appointment If your symptoms persist or worsen, pain is unbearable, you persistent nausea, vomiting, diarrhea or fever return to the ED immediately Prescriptions: No Action (DME) lancets [FreeStyle Lancets] 28 gauge misc See Rx Instructions .ROUTE .MEDSUPPLY Qty: 50 6RF Rx Instructions: Once a day levothyroxine 125 mcg tablet 125 mcg PO DAILY 30 Days Qty: 30 3RF hydrochlorothiazide 12.5 mg tablet 12.5 mg PO DAILY Qty: 90 3RF Trelegy Ellipta 200-62.5-25 mcg blister with device 1 inh inhalation DAILY 30 Days Qty: 60 12RF albuterol sulfate 2.5 mg /3 mL (0.083 %) solution for nebulization 2.5 mg continuous nebulization QID PRN (Reason: for wheezing) Qty: 180 0RF isosorbide mononitrate 30 mg tablet extended release 24 hr 30 mg PO DAILY Qty: 60 5RF oxycodone 5 mg tablet 5 mg PO Q6H PRN (Reason: pain) Qty: 20 0RF Rx Instructions: Partial Fill upon patient request. ibuprofen 800 mg tablet 800 mg PO Q8H PRN (Reason: Pain) acetaminophen [Tylenol Extra Strength] 500 mg tablet 500 mg PO Q6H PRN (Reason: fever or pain) Qty: 14 0RF naloxone [Narcan] 4 mg/actuation spray,non-aerosol 4 mg intranasal Q2M PRN (Reason: opioid overdose) Qty: 2 1RF Rx Instructions: spray 1 dose into ONE nostril; alternate nostrils w each dose until help arrives amitriptyline 75 mg tablet 75 mg PO BEDTIME omeprazole 20 mg capsule,delayed release(DR/EC) 20 mg PO BID ropinirole 3 mg tablet 3 mg PO BEDTIME aripiprazole 2 mg tablet 2 mg PO DAILY duloxetine 60 mg capsule,delayed release(DR/EC) 60 mg PO DAILY (DME) nebulizers Misc See Rx Instructions .Route Rx Instructions: As directed (DME) CPAP Machine/Device Device See Rx Instructions .Route Rx Instructions: As directed (DME) nebulizers [facility] See Rx Instructions .Route Rx Instructions: As directed Ozempic 0.25 mg or 0.5 mg (2 mg/3 mL) pen injector 0.5 mg subcut QWEEK atorvastatin 40 mg tablet 40 mg PO DAILY Qty: 60 3RF albuterol sulfate 90 mcg/actuation HFA aerosol inhaler 2 puff PO Q6H PRN (Reason: for wheezing) 30 Days Qty: 8.5 11RF Referrals: [facility] [Provider Group] - 1 week Virginie Monet MD [Primary Care Provider] - 3 days Print Language: Arabic
--- NOTE | 2024-10-24 10:45 | PC.NURSE ---
another nurse will attempt with an ultra sound for the IV
[2024-10-24] MEDS: ondansetron HCL 4 MG/2 ML VIAL IVPUSH (11:30)
[2024-10-24] MEDS: Ketorolac Tromethamine 15 MG/ML VIAL IVPUSH (11:30)
[2024-10-24] MEDS: 0.9 % Sodium Chloride 1,000 ML 999 ML IV (11:33)
--- NOTE | 2024-10-24 11:45 | PC.NURSE ---
pt's ultra sound iv infiltrated in ct, pt's arm wrapped with a warm compress, provider aware
[2024-10-24] MEDS: iohexoL 350 MG/ML 100 ML INFUS..BTL IV (11:54)
[2024-10-24 12:18] VITALS: BP 126/61; PULSE 93; RESP 18; TEMP 36.3; O2SAT 98
--- NOTE | 2024-10-24 13:10 | PC.NURSE ---
pt reports needing to leave, does not want her medications and continuos on walking out of the ed
[2024-10-24 13:27] VITALS: BP 126/61; PULSE 93; RESP 18; TEMP 36.3; O2SAT 98
== END 2024-10-24 13:28 | disposition home or self-care (01) ==
PROVIDERS: Emergency Provider Emergency Medicine Emergency Medical Services; PCP Internal Medicine
DX: R10.2 Pelvic and perineal pain (principal); R10.11 Right upper quadrant pain; I25.10 Atherosclerotic heart disease of native coronary artery without angina pectoris; I10 Essential (primary) hypertension; F17.210 Nicotine dependence, cigarettes, uncomplicated; Z79.899 Other long term (current) drug therapy
CPT/HCPCS: 36415; 74177; 80053; 81001; 82248; 83690; 83735; 85025; 96374; 96375; 99284; J1885; J2405; Q9967

== ENCOUNTER → 2024-10-24 10:25 | Outpatient (BNV) | payer OTHER, SELFPAY | PROVIDERS: Emergency Provider Emergency Medicine Emergency Medical Services; PCP Internal Medicine; Visit Provider Radiology Diagnostic Radiology | DX: R10.32 Left lower quadrant pain (principal); R10.11 Right upper quadrant pain; R11.2 Nausea with vomiting, unspecified; R19.7 Diarrhea, unspecified | CPT/HCPCS: 74177 ==

== ENCOUNTER 2024-10-30 10:46 | Outpatient (AMB) | payer OTHER, SELFPAY ==
[2024-10-30 10:54] VITALS: BMI 33.9
--- NOTE | 2024-10-30 10:54 | MHC.OFFVIS ---
Vital Signs 10/30/24 10:54 Height 5 ft 8 in Weight 223 lb BMI 33.9 Intake Visit Reasons: Right knee pain and giving way Intake Note: Virginie is a 59 year old female who presents with complaints of progressively worsening right knee pain and giving way. She did undergo left knee arthroscopic surgery on 09/22/2024. She reports mild intermittent weakness in her left knee. She denies any fevers or chills. She states that her right knee symptoms have gotten worse over the last year in spite of continued non operative treatments. She has failed the last 6 weeks of conservative treatment which have included a home exercise program, physical therapy exercises, Tylenol and anti-inflammatory medicines. She states that her right knee will give out several times per day. Allergies adhesive tape Allergy (Severe, Verified 10/30/24 10:55) BLISTERS Tetanus Vaccines and Toxoid [TETANUS VACCINES & TOXOID] Allergy (Intermediate, Verified 10/30/24 10:55) SWELLING, REDNESS surgical tape Allergy (Severe, Uncoded 10/30/24 10:55) hives/boils Medication List - Last Reconciled 10/30/24 by Pete Varela MD acetaminophen (Tylenol Extra Strength) 500 mg PO Q6H PRN albuterol sulfate 90 mcg/actuation 2 puffs PO Q6H PRN 30 days albuterol sulfate 2.5 mg (3 mL) continuous nebulization QID PRN amitriptyline 75 mg PO BEDTIME aripiprazole 2 mg PO DAILY atorvastatin 40 mg PO DAILY CPAP (CPAP Machine/Device) As directed duloxetine 60 mg PO DAILY zxokdytiept-pgatzcqsb-qsridevu 200-62.5-25 mcg (Trelegy Ellipta) 1 inh inhalation DAILY 30 days hydrochlorothiazide 12.5 mg PO DAILY ibuprofen 800 mg PO Q8H PRN isosorbide mononitrate ER 30 mg PO DAILY lancets (FreeStyle Lancets) Once a day levothyroxine 125 mcg PO DAILY 30 days naloxone 4 mg/actuation (Narcan) 4 mg intranasal Q2M PRN nebulizers As directed nebulizers As directed omeprazole 20 mg PO BID oxycodone 5 mg PO Q6H PRN ropinirole 3 mg PO BEDTIME semaglutide (Ozempic) 0.5 mg subcut QWEEK PFSH Medical History Coronary artery disease Nicotine dependence, cigarettes, uncomplicated Pulmonary hypertension Dyspnea Vitamin D deficiency Mixed irritable bowel syndrome Michael's thyroiditis Fibromyalgia Type 2 diabetes mellitus Obesity (BMI 30-39.9) Hypothyroidism BOY (obstructive sleep apnea) Hypertension Pulmonary nodules Asthma-COPD overlap syndrome Surgical History History of colon resection History of cholecystectomy History of colonoscopy History of esophagogastroduodenoscopy (EGD) History of lithotripsy History of surgery on right wrist History of excision of mass (09/28/21) History of elbow surgery Status post tendon repair Status post trigger finger release H/O hand surgery H/O excision of ganglion cyst H/O arthroscopy of right knee Family History Father Myocardial infarction Hypertension Diabetes CVD (cardiovascular disease) Mother Restless leg syndrome Diabetes Paternal Aunt Breast cancer Uterine cancer Social History Are you a primary healthcare administrator to a significant other at home: No Do you presently have visiting nurse or other home services: Yes ([employer]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, 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 or older and lives alone: No Alcohol intake: former Patient Tobacco Use Status: Current everyday Tobacco user Tobacco use type: Cigarette Cigarettes Per Day: 6 Years Smoked: 30 Physical Exam Vital Signs: BMI result Body Mass Index 33.9 Const Other: Well-nourished well-developed very friendly female awake alert and oriented x3 in no acute distress Extrem Other: Right knee examination shows a minimal effusion, mild crepitus with range of motion, tenderness along her medial joint line, positive Pasquale's test, no instability Results Reviewed Results Reviewed: MRI of the patient's right knee shows mild diffuse degenerative changes as well as a tear of the medial meniscus, no acute bony abnormalities Assessment & Plan Assessment & Plan (1) Tear of medial meniscus of right knee: Code(s): S83.241A - Other tear of medial meniscus, current injury, right knee, initial encounter Category: Medical Plan Ms. Martins presents with progressively worsening right knee pain and mechanical symptoms due to a medial meniscus tear. She also has intermittent weakness in her left leg after undergoing left knee arthroscopic surgery on 09/22/2024. Thus, I did have her fitted with a left knee brace. I do feel that the braces a medical necessity because of her weakness to help prevent future falls. At this point the patient appears to be failing continued non operative treatments of her right knee. The risks and benefits of right knee arthroscopic surgery were discussed at length with the patient. The patient wishes to proceed with surgery. Surgery will most likely involve right knee arthroscopic partial medial meniscectomy. The patient will be scheduled for next available date. She will follow-up as instructed. Feel free to call me at any time should questions regarding her orthopedic management arise. I spent 21 minutes in reviewing the patient's records and imaging studies, seeing the patient and documenting in the medical record. Coding Level of Care Code Est Pt Level 3 (55503) Complex EM visit Add On G2211 Diagnoses Tear of medial meniscus of right knee S83.241A
--- OUTSIDE RECORDS SUMMARY | 2024-10-30 13:04 | XMS_ITS | Data Portability ---
Author Organization [employer] Address [address] [place] [id number] Care Team Providers Care Hand Salter Name Role Phone HIM CCA OTHER SHANKAR SON Primary Care Provider [phone] Assessment No assessment recorded. Plan of Treatment [...] Not Available Not Available No t Available [employer] 360ToIDInteract Ultra Test strips USE DIRECTED TWICE DAILY [...] active Not Available Not Available Not Available [employer] COVID-19 Rapid At-Home kit TEST DIRECTED TODAY [...] SNOMED-CT Code Diagnosis ICD10 Code Diagnosis Note [id number] Bryce Rivera MD Main - [facility] [address] [place] [phone] 03/04/2024 20:21:06 03/04/2024 22:03:09 Headache [id number] R51.9 Reports a history of migraines, but [...] Wills Member ID Guarantor Name 03/04/2024 1 [facility] - DOS ON OR AFTER 2022 - DUAL ELIGIBLE - SHELTER OPTIONS AND ONE CARE (MEDICARE REPLACEMENT/ADV ANTAGE - HMO) Shankar Martins [id number] Shankar Martins Notes Date Note Type Note Provider Name and Address Organization Details Recorded Time 03/04/2024 text/html [facility] Nurse Triage Notes (Racheal Pabon): Reason For Request: Pt reporting severe headache for 3 weeks>suffers from migraines and has taken medication with no improvements>162/90 BP Chief Complaints: Headache PMH: Hypertension, Other Allergies: No Known Pain Assessment: Level 10 out of 10 Comments: Hospice Case Manager verified the member's name//address and phone number. [...] ................... ................... ................... ................... ................... ................... ........ Building Maintenance Custodian Note From Ho Joe: Dispatched to the [...] agreed to go by ambulance. 911 contacted [facility] on scene and [facility] took patient care. all times are approx.report completed by sarah joe ................... ................... ................... ................... ................... ................... ................... ........ Disposition: Fulfilled Bryce Rivera MD [address] [place] [address],[address], [place], [phone], [facility] [employer] 03/04/2024 21:30:34 OBGyn Episode No OBEpisode recorded.
--- OUTSIDE RECORDS SUMMARY | 2024-10-30 13:04 | XMS_ITS | Clinical Summary ---
Author Organization [facility] Address [address] [place] [address] Care Team Providers Care Green Building Architect Name Role Phone Unavailable Primary Care Provider [...]
== END 2024-10-30 11:11 | disposition home or self-care (01) ==
LOC: HO.HOS 10:46
PROVIDERS: PCP Internal Medicine; Visit Provider Orthopaedic Surgery
DX: S83.241A Other tear of medial meniscus, current injury, right knee, initial encounter (principal)
CPT/HCPCS: 99213; G2211

== ENCOUNTER → 2024-10-30 10:46 | Outpatient (BNVA) | payer OTHER, SELFPAY | PROVIDERS: PCP Internal Medicine; Visit Provider Orthopaedic Surgery | DX: S83.241A Other tear of medial meniscus, current injury, right knee, initial encounter (principal); X58.XXXA Exposure to other specified factors, initial encounter; Y93.9 Activity, unspecified; Y92.9 Unspecified place or not applicable; Y99.9 Unspecified external cause status | CPT/HCPCS: 99212 ==

== ENCOUNTER 2024-11-14 09:27 | Outpatient (AMB) | payer OTHER, SELFPAY ==
--- NOTE | 2024-11-14 07:49 | A.OFFVIS_ITS ---
Intake Visit Reasons: Current Smoker Allergies adhesive tape Allergy (Severe, Verified 10/30/24 10:55) BLISTERS Tetanus Vaccines and Toxoid [TETANUS VACCINES & TOXOID] Allergy (Intermediate, Verified 10/30/24 10:55) SWELLING, REDNESS surgical tape Allergy (Severe, Uncoded 10/30/24 10:55) hives/boils HPI HPI Current Smoker: Details: Initial visit for this 59yo smoker with a 30PYH. Patient started smoking at age 18 for 41 years at 1/2-1ppd. Currently down to 6 cig/day. . Denies marijuana use. Denies second hand smoke exposure. Denies exposure to chemicals or substances like asbestos. . Denies known family history of lung cancer. Denies personal history of cancers. Denies chest CT in last year. 09/07/[address] noted bilateral nodules - largest was 9mm RLL - stable. . Denies recent travel outside the [place]. Denies recent respiratory illness or recent hospitalization for respiratory issues. Reports history testing positive for COVID. Admits receiving COVID Vaccine. . Denies fever, chills, new/worsening cough, hemoptysis, hoarseness or dysphagia. Denies significant chest pain, significant dyspnea or unintentional weight loss. Patient Lung Cancer Screening Questionnaire reviewed with patient by provider. . Shared Decision Making Completed. Patient meets criteria. Discussed in detail with patient, the risk vs benefit of LDCT screening. Patient consents to proceed with scan. Discussed smoking cessation. [facility] Medical History (Updated 11/14/24 @ 09:44 by Kait Beckwith PA-C) Coronary artery disease Nicotine dependence, cigarettes, uncomplicated Pulmonary hypertension Dyspnea Vitamin D deficiency Mixed irritable bowel syndrome Michael's thyroiditis Fibromyalgia Type 2 diabetes mellitus Obesity (BMI 30-39.9) Hypothyroidism BOY (obstructive sleep apnea) Hypertension Pulmonary nodules Asthma-COPD overlap syndrome Surgical History (Updated 11/14/24 @ 09:40 by Kait Beckwith PA-C) History of colon resection History of cholecystectomy History of colonoscopy History of esophagogastroduodenoscopy (EGD) History of lithotripsy History of surgery on right wrist History of excision of mass (09/28/21) History of elbow surgery Status post tendon repair Status post trigger finger release H/O hand surgery H/O excision of ganglion cyst H/O arthroscopy of right knee Family History Father Myocardial infarction Hypertension Diabetes CVD (cardiovascular disease) Mother Restless leg syndrome Diabetes Paternal Aunt Breast cancer Uterine cancer Social History (Updated 11/14/24 @ 09:44 by Kait Beckwith PA-C) Are you a primary child daycare worker to a significant other at home: No Do you presently have visiting nurse or other home services: Yes ([employer] 3 x week, 2 hours) Alcohol intake: former Patient Tobacco Use Status: Current everyday Tobacco user Tobacco use type: Cigarette Cigarettes Per Day: 6 Years Smoked: (onset 18yo, 1/2-1ppd x 41yrs, now 1/4ppd - 30pyh) Assessment & Plan Assessment & Plan (1) Nicotine dependence, cigarettes, uncomplicated: Comment: (onset 18yo, 1/2-1ppd x 41yrs, now 1/4ppd - 30pyh) Code(s): F17.210 - Nicotine dependence, cigarettes, uncomplicated Category: Medical Plan: - SDM visit completed today in office. - Patient meets criteria for LDCT for lung cancer screening purposes and is asymptomatic. - Smoking cessation counseling offered. Patients can always call [phone]. - Will arrange for a LDCT scan of the chest for screening purposes at [facility]. - Risks, benefits, and alternatives were discussed in detail and the patient agrees to proceed. - Risks discussed include but are not limited to: radiation exposure, anxiety during testing and while awaiting results, false negatives, false positives and possibility of additional intervention such as further imaging or surgical procedures for benign disease. - Benefits are obviously detection of lung cancer at an early stage which can lead to improved outcomes. - Discussed the importance of screening program compliance with adherence to yearly LDCT scan as scheduled - or sooner interval scans for personalized screening regimen. - Discussed follow up plan. Our office will send a letter discussing results and if needed set up phone call and office visit based on CT findings. - Patient educated on results categorization and the management decisions for suspicious findings potentially found on the screening LDCT scan. Any patient with a Lung RADS score of 3 or 4 will be reviewed by a multidisciplinary team at [facility] to form a plan of action in regards to scan findings. - If further work up is warranted for a suspicious lung finding this will be followed by the Lung Cancer Screening program in conjunction with the Thoracic Surgery Department at [facility]. - A copy of the office note and LDCT will be sent to the patient's PCP - as well as documentation on any associated further plans of care. - Incidental findings on LDCT are the PCP's responsibility. These findings are indicated with an S finding on the LDCT Assessment. A note discussing the findings will be sent to the PCP who is then responsible for further management. - All questions answered.? Coding Level of Care Code Lung Cancer Screening G0296 Diagnoses Nicotine dependence, cigarettes, uncomplicated F17.210
--- OUTSIDE RECORDS SUMMARY | 2024-11-14 10:13 | XMS_ITS | Encounter Summary ---
Author Organization [employer] Address [address] [facility] 7t [place] [address] Care Team Providers Care Broth Mixer Name Role Phone Virginie Monet MD Primary Care Provide r Reason for Visit * Reason Onset Date Comments Med Refill 06/04/2024 Encounter Details Date Type Department Care Team ([facility] Contact Info) Description 06/04/2024 Telephone [facility] 230 [place], [place] [phone] Virginie Monet MD 230 [place] [address] Med Refill Social History Tobacco Use Types [...] immediate release tablet To be sent to: [id number] - [place], [place] - [address] [facility] documented in this encounter Plan of Treatment Upcoming Encounters Date Type Department Care Team (Late st Contact Info) Description 11/20/2024 10:15 AM EDT Office Visit [facility] [address] [place] [address] Virginie Monet MD [address] [place] [address] 12/09/2024 9:45 AM EDT Office Visit [address] [address] 12/18/2024 9:00 AM EDT Office Visit [facility] [address] [place] [address] [place] [address] Virginie Monet MD [address] [place] [address] documented as of this encounter Visit Diagnoses Not on filedocumented in this encounter Additional Health Concerns Assessment Noted Time PHQ-9 Depression Total Score: 15 024 11:32 AM EDT documented as of this encounter Care Teams Broth Mixer Relationship Specialty Start Date End Date Virginie Monet MD [address] [place] [address] PCP - General Family Medicine 07/30/20 documented as of this encounter
--- OUTSIDE RECORDS SUMMARY | 2024-11-14 10:13 | XMS_ITS | Encounter Summary ---
Author Organization [employer] Address [address] [facility] [address] 7t [place] [address] Care Team Providers Care Credit Assistant Name Role Phone Virginie Monet MD Primary Care Provide r Encounter Details Date Type Department Care Team ([facility] Contact Info) Description 10/31/2023 Telephone [facility] 230 [place], [place] [phone] Virginie Monet MD 230 [place] [address] Social History Tobacco Use Types Packs/Day Years [...] 10/31/2023 11:32 AM EDT Faxed referral for SWEAT[employer] PERFORATOR services for Ry today, per patient request. documented in this encounter Plan of Treatment Upcoming Encounters Date Type Department Care Team (Late st Contact Info) Description 11/20/2024 10:15 AM EDT Office Visit [facility] [address] [place] [phone] Virginie Monet MD [address] [place] [address] 12/09/2024 9:45 AM EDT Office Visit [address] [address] 12/18/2024 9:00 AM EDT Office Visit [address] [address] Virginie Monet MD [address] [place] [phone] documented as of this encounter Visit Diagnoses Not on filedocumented in this encounter Additional Health Concerns Assessment Noted Time PHQ-9 Depression Total Score: 0 05/29/20 23 2:13 PM EST documented as of this encounter Care Teams Credit Assistant Relationship Specialty Start Date End Date Virginie Monet MD [address] [place] [address] PCP - General Family Medicine 07/30/20 documented as of this encounter
--- OUTSIDE RECORDS SUMMARY | 2024-11-14 10:13 | XMS_ITS | Encounter Summary ---
Author Organization [employer] Address [address] [facility] [address]t [place] [address] Care Team Providers Care Cooker Syrup Name Role Phone Virginie Monet MD Primary Care Provide r Encounter Details Date Type Department Care Team ([facility] Contact Info) Description 10/12/2023 Orders Only [facility] 230 [place], [place] [phone] Virginie Monet MD 230 [place] [address] Social History Tobacco Use Types Packs/Day Years [...] Description 11/20/2024 10:15 AM EDT Office Visit [address] [address] Virginie Monet MD [address] [place] [address] 12/09/2024 9:45 AM EDT Office Visit [address] [address] 12/18/2024 9:00 AM EDT Office Visit [address] [address] Virginie Monet MD [address] [place] [address] documented as of this encounter Visit Diagnoses Not on filedocumented in this encounter Additional Health Concerns Assessment Noted Time PHQ-9 Depression Total Score: 0 05/29/20 23 2:13 PM EST documented as of this encounter Care Teams Cooker Syrup Relationship Specialty Start Date End Date Virginie Monet MD [address] [place] [address] PCP - General Family Medicine 07/30/20 documented as of this encounter
--- OUTSIDE RECORDS SUMMARY | 2024-11-14 10:13 | XMS_ITS | Encounter Summary ---
Author Organization [employer] Address [address] [facility] 7t [place] [address] Care Team Providers Care Cadence Specialists Name Role Phone Virginie Monet MD Primary Care Provide r Reason for Visit * Reason Onset Date Comments Med Refill 02/05/2023 Encounter Details Date Type Department Care Team ([facility] st Contact Info) Description 02/05/2023 Telephone [facility] 230 [place], [place] [phone] Virginie Monet MD 230 [place] [address] Med Refill Social History Tobacco Use Types [...] Description 11/20/2024 10:15 AM EDT Office Visit [address] [address] Virginie Monet MD [address] [place] [address] 12/09/2024 9:45 AM EDT Office Visit [address] [phone] 12/18/2024 9:00 AM EDT Office Visit [address] [address] Virginie Monet MD [address] [place] [address] documented as of this encounter Visit Diagnoses Not on filedocumented in this encounter Additional Health Concerns Assessment Noted Time PHQ-9 Depression Total Score: 0 11/15/19 23 9:09 AM EDT documented as of this encounter Care Teams Cadence Specialists Relationship Specialty Start Date End Date Virginie Monet MD [address] [place] [address] PCP - General Family Medicine 07/30/20 documented as of this encounter
--- OUTSIDE RECORDS SUMMARY | 2024-11-14 10:13 | XMS_ITS | Clinical Summary ---
Author Organization [employer] Address [address] [place] [address] Care Team Providers Care Executive Relations Specialist Name Role Phone Virginie Monet MD [...] spray into affected nostril(s) See administration instructions. [place] 1 spray by intranasal route once; if [...] complication, without long-term current use of insulin ([facility]) Use 1 sensor every 14 days per package directions 2 each 2022 Active Continuous Blood Gluc Director Of Rehabilitative Services (FreeStyle Shane 2 Normanna) deviceIndication s:Type 2 diabetes mellitus without complication, without long-term current use of insulin ([facility]) Use reader for CGM per package [...] AND AT BEDTIME DIRECTED 2023 Active Lancets (Query HunterTouch Delica Plus [id number]) miscIndications: Type 2 diabetes mellitus with hyperglycemia, without long-term current use of insulin ([facility]) USE DIRECTED TWICE DAILY 100 each 11 2023 Active OneTouch Ultra Test test stripIndications :Type 2 diabetes mellitus with hyperglycemia, without long-term current use of insulin ([facility]) USE DIRECTED TWICE DAILY 100 strip [...] hyperglycemia, without long-term current use of insulin ([facility]) Check blood sugar before 1 meal [...] EVENING MEAL 180 tablet 1 2024 Active semaglutide (Ozempic) 2 MG/1.5ML solution pen-injectorIndi cations:Type 2 diabetes mellitus with hyperglycemia, with long-term current use of insulin (CMS/HCC) Inject 1 mg under the skin 1 (one) time per week. 2 each 3 2024 Active Continuous Glucose Director Of Rehabilitative Services (FreeStyle Shane 3 Normanna) deviceIndication s:Type 2 diabetes mellitus with hyperglycemia, [...] hyperglycemia, without long-term current use of insulin ([facility]) ADMINISTER PER SLIDING SCALE WITH 1 MEAL [...] IN THE MORNING 90 capsule 2024 Active ARIPiprazole (Abilify) 2 MG tabletIndication s:Depression, unspecified depression type TAKE 1 TABLET(2 MG) BY MOUTH IN THE MORNING 30 tablet 1 2024 Active DULoxetine (Cymbalta) [address] capsuleIndicatio ns:Depression, unspecified depression type TAKE 1 CAPSULE(60 MG) BY MOUTH IN THE MORNING 90 capsule 10/28 Discontinued losartan-hydroCH LOROthiazide (Hyzaar) 50-12.5 MG tabletIndication s:Essential hypertension TAKE 1 TABLET BY MOUTH DAILY 30 tablet 2 10/20 Discontinued ARIPiprazole (Abilify) 2 MG tabletIndication s:Depression, unspecified depression type TAKE 1 TABLET(2 MG) BY MOUTH IN THE MORNING 30 tablet 1 11/13 Discontinued oxyCODONE (Roxicodone) 5 MG immediate release [...] oxycodone 5mg Q8H PRN Indication: fibromyalgia Last ENGINEERING DESIGN MANAGER Agreement: 01/09/24 Tier II (ENGINEERING DESIGN MANAGER visits every 3 months) - last eval [...] AM EDT): Dr Radha Schulz (psychiatrist) phone [phone], is now taking over of her mental health and will take over her medications for mental health Diverticular disease 09/11/2023 Epigastric hernia 09/11/2023 Incisional hernia 09/11/2023 Osteoarthritis 09/11/2023 Assessment & Plan (10/11/2023 11:50 AM EDT): C/w PRN meds Patient will go to medical records for guidance for new [employer]INE services Pain in both hands 08/27/2023 Assessment & Plan (10/11/2023 11:51 AM EDT): As above Class 2 severe obesity due t o excess calories with serious comorbidity in adult 05/29/2023 Assessment & Plan (05/16/2024 10:23 AM EDT): Discussed re weight reduction options including exercise, life style modifications, diet and referral to cessation systems outreach specialist. Recommended to decrease soda and sugary [...] Assessment & Plan (10/11/2023 11:52 AM EDT): [employer]ACHINE services will be requested Assessment & Plan [...] Assessment & Plan (11/14/2022 10:20 AM EDT): odell yeast infection, patient on jardiance and with [...] pill count as expected Pt prefers individual ENGINEERING DESIGN MANAGER appointments, will schedule with Benita Mahmood RN [...] Type Department Care Team Description 11/12/2024 Refill [facility] [address] [place] [address] Virginie Monet MD Depression, unspecified depression type 11/04/2024 9:45 AM EDT Clinical Support [facility] [address] [place] [address] Krupa Gonzalez RN Chronic pain of left knee 11/04/2024 Travel 10/31/2024 Telephone [facility] [address] [place] [address] Virginie Monet MD Pre-op Exam 10/27/2024 Refill [facility] [address] [place] [address] Virginie Monet MD Depression, unspecified depression type 10/24/2024 Refill [facility] [address] [place] [address] Virginie Monet MD Chronic bilateral low back pain without sciatica 10/24/2024 Orders Only GENERIC EXTERNAL DATA DEPARTMENT Provider, Generic External Data 10/23/2024 Telephone [facility] [address] [place] [address] Nemo Tapia RN ER Follow-up 10/22/2024 Orders Only GENERIC EXTERNAL DATA DEPARTMENT Provider, Generic External Data 10/19/2024 Refill [facility] [address] [place] [address] Virginie Monet MD Essential hypertension 10/14/2024 Refill [facility] [address] [place] [address] Virginie Monet MD Type 2 diabetes mellitus with hyperglycemia, without long-term current use of insulin (CMS/HCC) 10/14/2024 Travel 10/13/2024 Telephone [facility] [address] [place] [address] Siria English, KELSEY Results 10/13/2024 Travel 09/26/2024 Refill [facility] [address] [place] [address] Virginie Monet MD Chronic bilateral low back pain without sciatica 09/22/2024 Orders Only GENERIC EXTERNAL DATA DEPARTMENT Provider, Generic External Data 09/17/2024 Telephone [facility] [address] [place] [address] Virginie Monet MD [employer]ACHINE 09/16/2024 10:45 AM EST Office Visit [facility] [address] [place] [address] Virginie Monet MD Essential hypertension (Primary Dx); Type 2 diabetes mellitus without complication, without long-term current use of insulin ([facility]); Type 2 diabetes mellitus with hyperglycemia, with long-term current use of insulin ([facility]); Tear of meniscus of left knee as current injury, unspecified meniscus, unspecified tear type, initial encounter 09/16/2024 Refill [facility] [address] [place] [address] Virginie Monet MD Type 2 diabetes mellitus with hyperglycemia, with long-term current use of insulin (CMS/HCC) 09/16/2024 Travel 09/09/2024 9:45 AM EST Office Visit [facility] [address] [place] [address] Racheal Flynn FNP Fibromyalgia (Primary Dx); Long-term current use of opiate analgesic; Acute meniscal tear of left knee, subsequent encounter 09/09/2024 Telephone [facility] [address] [place], [place] [phone] Racheal Flynn FNP ENGINEERING DESIGN MANAGER Tier 09/09/2024 Travel 08/29/2024 Refill [facility] [address] [place], [place] [phone] Virginie Monet MD Depression, unspecified depression type 08/27/2024 Refill [facility] [address] [place] [address] Virginie Monet MD Chronic bilateral low back pain without sciatica 08/26/2024 Refill [facility] [address] [place] [address] Virginie Monet MD Prediabetes from Last 3 [...] 11/20/2024 10:15 AM EDT Office Visit [facility] [address] [place] [phone] Virginie Monet MD [address] [place] [phone] 12/09/2024 9:45 AM EDT Office Visit [address] [address] 12/18/2024 9:00 AM EDT Office Visit [facility] [address] [place] [address] Virginie Monet MD [address] [place] [address] Health Maintenance Due Date Last Done Comments [...] Screening 08/21/2024 08/21/2023 Diabetes: Hemoglobin A1C 12/17/2024 03 025, 04/08/2024, 12/31/2023, Additional history exists Mammogram [...] Unknown 11/04/2024 10:29 AM EDT Narrative Krupa Gonzalez RN - 11/04/2024 10:29 AM EDT .Lot# [id number] Exp: 05-15-26 us Nanci Dwyer PhD POINT OF CARE TEST ENTER/EDIT O RDERABLES Final Result * CT Abdomen Pelvis w/ Contrast (10/24/2024 11:35 AM EDT) Anatomical Region Laterality Modality Body, Pelvis, Abdomen Computed T omography 10/24/2024 11:3 5 AM EDT Narrative 10/24/2024 12:23 PM EDT ? [facility] ?[address] ?[place] [address] ? CT Scan Report ? Signed ? Patient: Martins,Anastasia ?MR#: [id number] ?? 07 ? : 1965 ?Acct:[id number] ? Age/Sex: 59 / F ?ADM Date: 10/24/24 ? Loc: HO.ED ? Attending Dr: ? Ordering Physician: Nisreen Sunshine ?? Date of Service: 10/24/24 ?? Procedure(s): CT abdomen pelvis w IV con ?? Accession Number(s): [id number] ? cc: Virginie Monet MD; Nisreen Sunshine ? Report Number: ?? [id number]: Total DLP = ??903.00 mGy-cm ?? EXAMINATION: [...] ??10/24/2024 12:20 PM EDT RP ?? Workstation: [id number] ? Dictated By: ?George Main MD ? Signed By: ?<Electronically signed by George Main MD in OV> ?10/24/24 1220 ? DD/ 1135 ? TD/TT: 10/24/24 1157 ? Application Packaging Specialist: ? Procedure Note Mauricio Ribeiro - 10/24/[address] [address] [place] Scan Report Signed Patient: Virginie Martins AMR#: [id number] 07 : 1965Acct:[id number] Age/Sex: 59 / FADM Date: 10/24/24 Loc: HO.ED Attending Dr: Ordering Physician: Nisreen Sunshine Date of Service: 10/24/24 Procedure(s): CT abdomen pelvis w IV con Accession Number(s): [id number] cc: Virginie Monet MD; Nisreen Sunshine Report Number: [id number]: Total DLP = 903.00 mGy-cm EXAMINATION: CT [...] George Main MD 10/24/2024 12:20 PM EDT Dictated By: George Main MD Signed By: <Electronically signed by George Main MD in OV> 10/24/24 1220 DD/ 1135 TD/TT: 10/24/24 1157 Application Packaging Specialist: [facility] External Provider IMG CT PROCEDURES Final Result * (ABNORMAL) Urinalysis, Complete, with Reflex to Culture (10/24/2024 7:52 AM EDT) Color Urine Yellow [facility] Appearance Urine Cloudy [facility] PH 6.0 5.0 - 9.0 [facility] Glucose Urine UA Negative Negative mg/dL [facility] Urine Blood Negative Negative [facility] Specific [place] - Urine 1.025 1.005 - 1.025 [facility] Urine Protein Trace Neg-Trace mg/dL [facility] Urine Ketones Trace Negative mg/dL [facility] Nitrite Urine Negative Negative [facility] Leukocyte Esterase Urine Trace(A) Negative [facility] RBC Urine 0-2 0 - 2 /HPF [facility] Urine WBC 0-5 0 - 5 /HPF [facility] Urine Squamous Epithelial Cell >20 0 - 2 /HPF [facility] Urine Bacteria 4+ None Seen [facility] Hyaline Casts, Urine 0-2 0 - 2 /LPF [facility] 10/24/2024 7:52 AM EDT 10/24/2024 7:54 AM EDT Narrative [facility] - 10/24/2024 8:06 AM EDT [id number], Clean Catch Generic External Data Provider LAB URINE ORDERAB LES Final Result [facility] [address] [place] [phone] [phone] * (ABNORMAL) CBC auto differential (10/24/2024 7:48 AM EDT) Only the most recent of2 resultswithin the time period is included. White Blood Count 5.9 4.8 - 10.8 X10*3/uL [facility] Red Blood Count 5.37 4.20 - 5.50 X10*6/uL [facility] Hemoglobin 14.5 12.0 - 16.0 g/dl [facility] Hematocrit 42.9 37.0 - 47.0 % [facility] Mean Corpuscular Volume 79.9(L) 80.0 - 98.0 fL [facility] Mean Corpuscular Hemoglobin 27.0 27.0 - 33.0 pg [facility] Mean Corpuscular HGB Conc 33.8 31.0 - 35.0 g/dl [facility] Red Cell Distribution Width 14.0 11.0 - 16.0 % [facility] Platelet Count 317 160 - 400 X10*3/uL [facility] Mean Platelet Volume 9.2(L) 9.4 - 12.3 fL [facility] Neutrophils Percent Auto 61.6 45 - 73 % [facility] Imm Gran Pct Auto 0.2 0.0 - 0.4 % [facility] Lymphocytes Percent Auto 29.3 20 - 40 % [facility] Monocytes Percent Auto 6.6 2 - 11 % [facility] Eosinophils Percent Auto 2.0 0 - 4 % [facility] Basophils Percent Auto 0.3 0 - 2 % [facility] NRBC Pct Auto 0.0 0.0 - 0.2 /100WBC [facility] Neutrophils Absolute Auto 3.6 2.0 - 8.3 x10*3/uL [facility] Imm Gran Abs Auto 0.01 0.00 - 0.03 X10*3/uL [facility] Lymphocytes Absolute Auto 1.7 1.2 - 4.9 X10*3/uL [facility] Monocytes Absolute Auto 0.4 0.1 - 1.2 X10*3/uL [facility] Eosinophils Absolute Auto 0.1 0.0 - 0.4 X10*3/uL [facility] Basophils Absolute Auto 0.0 0.0 - 0.2 X10*3/uL [facility] NRBC Abs Auto 0.000 0.0 - 0.012 X10*3/uL [facility] 10/24/2024 7:48 AM EDT 10/24/2024 7:51 AM EDT Generic External Data Provider LAB BLOOD ORDERAB LES Final Result Performing Organization Address [facility]/ZIP Co de Phone Number [facility] [address] [place] [phone] * Magnesium (10/24/2024 7:48 AM EDT) Magnesium 1.8 1.6 - 2.6 mg/dL [facility] 10/24/2024 7:48 AM EDT 10/24/2024 7:51 AM EDT Generic External Data Provider LAB BLOOD ORDERAB LES Final Result Performing Organization Address [facility] Co ar Phone Number [facility] [address] [place] [phone] * Lipase (10/24/2024 7:48 AM EDT) Only the most recent of2 resultswithin the time period is included. Lipase 46 8 - 78 U/L [facility] 10/24/2024 7:48 AM EDT 10/24/2024 7:51 AM EDT Generic External Data Provider LAB BLOOD ORDERAB LES Final Result Performing Organization Address [facility] Co de Phone Number [facility] [address] [place] [phone] * Hepatic Function Panel (10/24/2024 7:48 AM EDT) Bilirubin, Direct 0.2 0.0 - 0.5 mg/dL [facility] 10/24/2024 7:48 AM EDT 10/24/2024 7:51 AM EDT us Generic External Data Provider LAB BLOOD ORDERAB LES Final Result [facility] [address] [place] [phone] * (ABNORMAL) Comprehensive Metabolic Panel (10/24/2024 7:48 AM EDT) Only the most recent of2 resultswithin the time period is included. Pathologist [facility] Sodium 139 135 - 145 mmol/L [facility] Potassium 3.6 3.3 - 5.1 mmol/L [facility] Chloride 105 96 - 108 mmol/L [facility] Carbon Dioxide 23 22 - 29 mmol/L [facility] Anion Gap 15 12 - 20 [facility] Urea Nitrogen (BUN) 11 9 - 16 mg/dL [facility] Creatinine, Serum 0.66 0.5 - 1.4 mg/dL [facility] Creatinine Clr Calc Pharmacy 114.3 [facility] Comment:Provided height and weight: 172.72 cm,101.5 kg.eGFR (calculated from the MDRD study equation) and eCrCl(calculated from the Cockcroft-Gault equation) are based ondifferent parameters and may not yield comparable results.If eCrCl result is absurd, please check patient'sheight/weight. Estimated Glomerular Filt Rate >60 [facility] Comment:Chronic Kidney Disea se: Estimated GFR < 60 mL/min/1.33z3Cjaxxa Kidney Disease: Estimated GFR < 15 mL/min/1.73m2 Glucose 235(H) 60 - 115 mg/dL [facility] Calcium 9.7 8.4 - 10.2 mg/dL [facility] Bilirubin, Total 0.3 0.0 - 1.0 mg/dL [facility] Aspartate Amino Transferase 17 5 - 31 U/L [facility] Alanine Aminotransferase 42(H) 0 - 31 U/L [facility] Total Protein 7.2 6.5 - 8.0 g/dL [facility] Albumin Level 3.9 3.5 - 5.0 g/dL [facility] Alkaline Phosphatase 111 39 - 117 U/L [facility] 10/24/2024 7:48 AM EDT 10/24/2024 7:51 AM EDT us Generic External Data Provider LAB BLOOD ORDERAB LES Final Result [facility] [address] [place] [phone] * MR Knee w/o Contrast Right (10/23/2024 7:15 AM EDT) Anatomical Region Laterality Modality Magnetic Resonan ce 10/23/2024 7:15 AM EDT Narrative 10/23/2024 8:20 AM EDT ? [facility] ?[address] ?[place] [address] ? Magnetic Resonance Report ? Signed ? Patient: EliezerVirginie Akbar ?MR#: [id number] ?? 07 ? : 1965 ?Acct:[id number] ? Age/Sex: 59 / F ?ADM Date: 10/23/24 ? Loc: HO.MRI ? Attending Dr: Pete Varela MD ? Ordering Physician: Pete Varela MD ?? Date of Service: 10/23/24 ?? Procedure(s): MR knee RT wo con ?? Accession Number(s): [id number] ? cc: Virginie Monet MD; Pete Varela [...] signed by George Main MD in OV> ?10/23/24817 ? DD/ 4 ? TD/TT: 10/23/24 0750 ? Application Packaging Specialist: ? Procedure Note Donottlinterpreter, Image - 10/23/[address] [address] Magnetic Resonance Report Signed Patient: Virginie Martins AMR#: [id number] 07 : 1965Acct:[id number] Age/Sex: 59 / FADM Date: 10/23/24 Loc: HO.MRI Attending Dr: Pete Varela MD Ordering Physician: Pete Varela MD Date of Service: 10/23/24 Procedure(s): MR knee RT wo con Accession Number(s): [id number] cc: Virginie Monet MD; Pete Varela MD [...] 10/23/24 0818 DD/ 0715 TD/TT: 10/23/24 0750 Application Packaging Specialist: [facility] External Provider IMG MRI PROCEDURES Final Result * SARS-CoV-2 RNA, Influenza A/B, and RSV RNA, Ql NAAT (10/22/2024 6:35 PM EDT) Influenza A PCR NEGATIVE Negative [facility] Influenza B PCR NEGATIVE Negative [facility] Resp Syncy Virus RNA Qual PCR NEGATIVE Negative [facility] SARS COV2 PCR NEGATIVE Negative [facility] Comment:All test results mus t be [...] use by authorized laboratories.Testing performed on the [employer] GeneXpert utilizingreal-time RT-PCR.All SARS CoV2 and positive influenza A/B results arereported to [facility]. 10/22/2024 6:35 PM EDT 10/22/2024 6:39 PM EDT Generic External Data Provider LAB MICROBIOLOGY - GENERAL ORDERABLES Final Result Performing Organization Address [facility] de Phone Number [facility] [address] [place] [phone] * Lactic Acid (10/22/2024 6:35 PM EDT) Lactic Acid 1.9 0.5 - 2.0 mmol/L [facility] 10/22/2024 6:35 PM EDT 10/22/2024 6:39 PM EDT Generic External Data Provider LAB BLOOD ORDERAB LES Final Result Performing Organization Address [facility] de Phone Number [facility] [address] [place] [phone] * Blood Culture (First) (10/22/2024 6:34 PM EDT) Blood Venous blood specimen / Unknown 10/22/2024 6:34 PM EDT 10/22/2024 6:39 PM EDT Comment:Blood Narrative [facility] - 10/27/2024 8:39 PM EDT Blood Culture (First) No growth after 5 days. Specimen Source: Blood Generic External Data Provider LAB MICROBIOLOGY - GENERAL ORDERABLES Final Result Performing Organization Address [facility] Co de Phone Number [facility] [address] [place] [phone] * Blood Culture (Second) (10/22/2024 5:03 PM EDT) Blood Venous blood specimen / Unknown 10/22/2024 5:03 PM EDT 10/23/2024 10:16 AM EDT Comment:Blood Narrative [facility] - 10/23/2024 10:16 AM EDT Blood Culture (Second) Test not performed NO SPECIMEN RECEIVED; DIFFICULT DRAW Specimen Source: Blood Generic External Data Provider LAB MICROBIOLOGY - GENERAL ORDERABLES Final Result Performing Organization Address [facility]/ZIP Co de Phone Number [facility] [address] [place] [phone] * (ABNORMAL) Glucose, Whole Blood (09/22/2024 7:09 AM EDT) Glucose, Whole Blood 204(H) 60 - 115 mg/dL [facility] Comment:METER #: [id number] 09/22/2024 7:09 AM EDT 09/22/2024 7:14 AM EDT Generic External Data Provider LAB BLOOD ORDERAB LES Final Result Performing Organization Address [facility] Co de Phone Number [facility] [address] [place] [phone] * (ABNORMAL) POCT HGB A1C (09/16/2024 [...] Media Lot # [id number] Lot# Expiration Date [id number] Blood Capillary blood specimen / Unknown 09/16/2024 10:52 AM EST Virginie Lopez MD POINT OF CARE TEST EN TER/EDIT ORDERABLES Final Result * Lipid Panel with Reflex to Direct LDL (04/22/2024 9:30 AM EDT) Triglycerides 149 <150 mg/dL [facility] Comment:Desirable Triglyceri de: less than 150 mg/dLBorderline High Triglyceride 150-199 mg/dLHigh Triglyceride: 200-499 mg/dLVery High Triglyceride: greater than or equal to 5OO mg/dL Cholesterol 154 <200 mg/dL [facility] Comment:Desirable Cholestero l: less than 200 mg/dLBorderline High Cholesterol: 200-239 mg/dLHigh Cholesterol: greater than 239 mg/dL LDL Cholesterol Calculated 79 <100 mg/dL [facility] Comment:Desirable LDL: less than 100 mg/dLNear Optimal/Above Optimal LDL: 110- 129 mg/dLBorderline High LDL: 130-159 mg/dLHigh LDL: 160-189 mg/dLVery High LDL: greater than or equal to 190 mg/dL HDL Cholesterol 46 >40 mg/dL [facility] Comment:Desirable HDL: great er than 40 mg/dL Note: This HDL assay may give artificially low results in patients with liver disease. Blood 04/22/2024 9:30 AM EDT 04/22/2024 11:35 AM EDT us Virginie Lopez MD LAB BLOOD ORDERABLES Final Result [facility] [address] [place] [phone] * Hepatitis C Viral RNA, Quantitative, Real-Time PCR (04/22/2024 9:30 AM EDT) Hepatitis C Viral Load <15 NOT DETECTED NOT DETECTED IU/mL [facility] HCV Log PCR <1.18 NOT DETECTED NOT DETECTED Log IU/mL [facility] Comment:For additional infor екатерина, please refer [email or web address]/faq/GQI32v9(This link is being provided for informational/educational purposes only.)THIS TEST WAS PERFORMED AT:[employer] [place] [phone] PERRY MD Blood 04/22/2024 9:30 AM EDT 04/22/2024 11:35 AM EDT us Virginie Lopez MD LAB BLOOD ORDERABLES Final Result Performing Organization Address [facility] Co de Phone Number [facility] [address] [place] [phone] * Albumin, Random Urine W/Creatinine (04/22/2024 9:30 AM EDT) Creatinine, Urine 193.55 mg/dL [facility] Microalbumin Urine 16.0 mg/L [facility] Microalbum Creatinine Ratio Ur 8.2 <30 ug/mg cr [facility] Comment:Albumin/Creatinine R atio Reference Ranges: Normal: < 30 ug/mg creatinine Microalbuminuria: 30 - 300 ug/mg creatinineClinical Albuminuria: > 300 ug/mg creatinine Urine (Urine, Random) 04/22/2024 9:30 AM EDT 04/22/2024 11:23 AM EDT us Virginie Lopez MD LAB URINE ORDERABLES Final Result Performing Organization Address [facility]/ZIP Co de Phone Number [facility] [address] [place] [phone] * HIV-1/2 Antigen and Antibodies, Fourth Generation, with Reflexes (04/22/2024 9:30 AM EDT) HIV AB/AG Nonreactive Nonreactive [facility] Comment:HIV-1 p24 Ag and/or HIV-1/HIV-2 Ab not detected.A test result that is nonreactive does not exclude thepossibility of exposure to or infection with HIV-1 and/orHIV-2. Nonreactive results in this assay for individualswith prior exposure to HIV-1 and/or HIV-2 may be due toantigen and antibody levels that are below the limit ofdetection of this assay.The [employer] HIV Ag/Ab Combo assay result andsupplemental assay results should be interpreted inconjunction with the patient's clinical presentation,history and other laboratory results. If the results areinconsistent with clinical evidence, additional testing issuggested to confirm the result. Blood Venous blood specimen / Unknown 04/22/2024 9:30 AM EDT 04/22/2024 11:35 AM EDT us Virginie Lopez MD LAB BLOOD ORDERABLES Final Result [facility] [address] [place] [address] [phone] * BI Mammogram Screening Tomosynthesis Bilateral (01/01/2024 8:00 AM EDT) Anatomical Region Laterality Modality Breast Bilateral Mammography 01/01/2024 8:00 AM EDT Narrative 01/29/2024 3:53 PM EDT ? [facility] ? [address] [facility] ?[place] [address] ? Mammography Report ? Signed ? Patient: Martins,Anastasia ?MR#: [id number] ?? 07 ? : 1965 ?Acct:[id number] ? Age/Sex: 58 / F ?ADM Date: 06/18/24 ? Loc: HO.MAMMO ? Attending Dr: Virginie Lopez MD ? Ordering Physician: Virginie Monet MD ?Results: ?? 1Negative ? Date of Service: 01/01/24 ?Follow Up: 1 Year From Orig ?? inal Mammogram ? Procedure(s): MM tomosynthesis screening BI ?? Accession Number(s): [id number] ? cc: Virginie Monet MD ? EXAMINATION: [...] 1549 ? DD/ 0800 ? TD/TT: ? Application Packaging Specialist: ? Procedure Note Donottlinterpreter, Image - 01/29/2024 [facility] [address] [place], [place] [address] Mammography Report Signed Patient: Virginie Martins AMR#: [id number] [birth year] : 1965Acct:[id number] Age/Sex: 58 / FADM Date: 01/01/24 Loc: HO.MAMMO Attending Dr: Virginie Lopez MD Ordering Physician: Virginie Monet MDResults: 1Negative Date of Service: 01/01/24Follow Up: 1 Year From Orig inal Mammogram Procedure(s): MM tomosynthesis screening BI Accession Number(s): [id number] cc: Virginie Monet MD EXAMINATION: MM SCREENING [...] in OV> 01/29/24 1549 DD/ 0800 TD/TT: Application Packaging Specialist: us Virginie Lopez MD IMG BI PROCEDURES Fin al Result * HPV mRNA E6/E7 (02/27/2018 3:34 PM EDT) HPV mRNA E6/E7 Not Detected NOT DETECTED [facility] Comment: This test was performed using the APTIMA(R) HPV Assay ([employer] This assay detects E6/E7 viral messenger RNA (mRNA) from 14 high-risk HPV types (16,18,31,33,35,39,45,51, 52,56,58,59,66,68). For additional information please refer to: http://education.Color Promos/faq/LXB330i2 (This link is being provided for informational/ educational purposes only.) The analytical performance characteristics of this assay have been determined by [facility] [place], [place]. The modifications have not been cleared or approved by the FDA. This assay has been validated pursuant to the CLIA regulations and is used for clinical purposes. Test Performed by [facility], [email or web address] [facility], [address] [place] [address] Adriel Barclay M.D., Ph.D., Director of Laboratories , CLIA [id number] Please note: ??Effective 03/27/2016, HPV testing will be performed using [employer]'s APTIMA test which targets mRNA. Detecting mRNA instead of DNA, as in older methods, offers significant improvements in specificity. 02/27/2018 3:34 PM EDT Ela Kern CNM HISTORICAL/NON ORDERABLE LABS Final Result [facility] [address] * Pap Smear (02/27/2018 12:00 AM EDT) Swab Ela Kern CNM LAB CYTOLOGY ORDERABLES F inal Result [facility] [address] [place] [address] [phone] * Colonoscopy (01/31/2017) Colonoscopy Normal Normal Narrative Ashley Recio - 01/31/2017 Repeat colonoscopy in 10 years . Results are in [facility] 01/31/2017 us Historical Provider HEALTH MAINTENANCE Final Result from Last 3 Months or Most Recently Relevant to Health Maintenance Insurance [facility] ST[facility] ONE CARE < 65 CCA ONE CARE < 65 Care Teams Executive Relations Specialist Relationship Specialty Start Date End Date Virginie Monet MD [address] [place] [address] PCP - General Family Medicine 07/30/20
--- OUTSIDE RECORDS SUMMARY | 2024-11-14 10:13 | XMS_ITS | Encounter Summary ---
Author Organization [employer] Address [address] [facility] 7t [place] [address] Care Team Providers Care Php Mysql Developer Name Role Phone Virginie Monet MD Primary Care Provide r Reason for Visit * Reason Onset Date Comments Appointment Request 02/05/2024 Encounter Details Date Type Department Care Team ([facility] Contact Info[facility] Description 02/05/2024 Telephone [facility] [address] [place], [place] [phone] Virginie Monet MD [address] [place] [address] Appointment Request Social History Tobacco Use Types [...] 11/20/2024 10:15 AM EDT Office Visit [facility] [address] [place] [address] Virginie Monet MD [address] [place] [address] 12/09/2024 9:45 AM EDT Office Visit [address] [address] 12/18/2024 9:00 AM EDT Office Visit [address] [address] Virginie Monet MD [address] [place] [address] documented as of this encounter Visit Diagnoses Not on filedocumented in this encounter Additional Health Concerns Assessment Noted Time PHQ-9 Depression Total Score: 15 024 11:32 AM EDT documented as of this encounter Care Teams Php Mysql Developer Relationship Specialty Start Date End Date Virginie Monet MD [address] [place] [address] PCP - General Family Medicine 07/30/20 documented as of this encounter
--- OUTSIDE RECORDS SUMMARY | 2024-11-14 10:13 | XMS_ITS | Encounter Summary ---
Author Organization [employer] Address [address] [facility] [address] 7t [place] [address] Care Team Providers Care Checker Stocker Name Role Phone Virginie Monet MD Primary Care Provide r Reason for Visit * Reason Onset Date Comments Nurse Triage 12/14/2023 Encounter Details Date Type Department Care Team ([facility] st Contact Info) Description 12/14/2023 Telephone [facility] [address] [place], [place] [phone] Virginie Monet MD [address] [place] [address] Nurse Triage Social History Tobacco Use Types [...] immediate release tablet To be sent to: [facility] documented in this encounter Plan of Treatment Upcoming Encounters Date Type Department Care Team (Late st Contact Info) Description 11/20/2024 10:15 AM EDT Office Visit [facility] [address] [place] [address] Virginie Monet MD [address] [place] [address] 12/09/2024 9:45 AM EDT Office Visit [address] [address] 12/18/2024 9:00 AM EDT Office Visit [address] [address] Virginie Monet MD [address] [place] [address] documented as of this encounter Visit Diagnoses Diagnosis Chronic bilateral low back pain without sciatica documented in this encounter Additional Health Concerns Assessment Noted Time PHQ-9 Depression Total Score: 0 05/29/20 23 2:13 PM EST documented as of this encounter Care Teams Checker Stocker Relationship Specialty Start Date End Date Virginie Monet MD [address] [place] [address] PCP - General Family Medicine 07/30/20 documented as of this encounter
--- OUTSIDE RECORDS SUMMARY | 2024-11-14 10:13 | XMS_ITS | Data Portability ---
Author Organization [employer] Address [address] [place] [phone] Care Team Providers Care Certified Medicine Aide Name Role Phone HIM CCA OTHER SHANKAR [...] Not Available Not Available No t Available [employer] Simplicity Ultra Test strips USE DIRECTED TWICE DAILY [...] active Not Available Not Available Not Available [employer] COVID-19 Rapid At-Home kit TEST DIRECTED TODAY [...] SNOMED-CT Code Diagnosis ICD10 Code Diagnosis Note 00516 Bryce Rivera MD Main - instED [address] [place] [phone] 03/04/2024 20:21:06 03/04/2024 22:03:09 Headache [id number] R51.9 Reports a history of migraines, but [...] (MEDICARE REPLACEMENT/ADV ANTAGE - HMO) Shankar Martins [id number] Shankar Martins Notes Date Note Type Note Provider Name and Address Organization Details Recorded Time 03/04/2024 text/html [facility] Nurse Triage Notes (Racheal Pabon): Reason For Request: Pt reporting severe headache for 3 weeks>suffers from migraines and has taken medication with no improvements>162/90 BP Chief Complaints: Headache PMH: Hypertension, Other Allergies: No Known Pain Assessment: Level 10 out of 10 Comments: Instructional Consultant verified the member's name//address and phone number. [...] ................... ................... ................... ................... ................... ................... ........ Care Transitions Nurse Note From Ho Joe: Dispatched to the [...] agreed to go by ambulance. 911 contacted [facility] on scene and [facility] took patient care. all times are approx.report completed by sarah joe ................... ................... ................... ................... ................... ................... ................... ........ Disposition: Fulfilled Bryce Rivera MD [address] [place] [address],[address], [place], [phone], [employer] 03/04/2024 21:30:34 OBGyn Episode No OBEpisode recorded.
--- OUTSIDE RECORDS SUMMARY | 2024-11-14 10:13 | XMS_ITS | Encounter Summary ---
Author Organization [employer] Address [address] [facility] [address] 7t [place] [address] Care Team Providers Care Protein Purification Scientist Name Role Phone Virginie Monet MD Primary Care Provide r Reason for Visit * Reason Comments Med Refill Encounter Details Date Type Department Care Team ([facility] st Contact Info) Description 11/12/2024 Refill [facility] [address] [place], [place] [phone] Virginie Monet MD [address] [place], [place] [phone] Depression, unspecified depression type Social History Tobacco [...] Description 11/20/2024 10:15 AM EDT Office Visit [facility] [address] [place] [address] Virginie Monet MD [address] [place] [address] 12/09/2024 9:45 AM EDT Office Visit [address] [address] 12/18/2024 9:00 AM EDT Office Visit [facility] [address] [place] [address] Virginie Monet MD [address] [place] [address] documented as of this encounter Visit Diagnoses Diagnosis Depression, unspecified depression type documented in this encounter Additional Health Concerns Assessment Noted Time PHQ-9 Depression Total Score: 0 09/17/19 25 10:52 AM EST documented as of this encounter Care Teams Protein Purification Scientist Relationship Specialty Start Date End Date Virginie Monet MD [address] [place] [address] PCP - General Family Medicine 07/30/20 documented as of this encounter
--- OUTSIDE RECORDS SUMMARY | 2024-11-14 10:13 | XMS_ITS | Encounter Summary ---
Author Organization [employer] Address [address] [facility] [address] 7t [place] [address] Care Team Providers Care Vinyl Dipper Name Role Phone Virginie Monet MD Primary Care Provide r Reason for Visit * Reason Comments Med Refill Encounter Details Date Type Department Care Team ([facility] st Contact Info) Description 01/22/2024 Refill [facility] [address] [place], [place] [phone] Virginie Monet MD [address] [place], [place] [phone] Anxiety Social History Tobacco Use Types Packs/Day [...] Description 11/20/2024 10:15 AM EDT Office Visit [address] [address] Virginie Monet MD [address] [place] [address] 12/09/2024 9:45 AM EDT Office Visit [address] [address] 12/18/2024 9:00 AM EDT Office Visit [address] [address] Virginie Monet MD [address] [place] [address] documented as of this encounter Visit Diagnoses Diagnosis Anxiety Anxiety state, unspecified documented in this encounter Additional Health Concerns Assessment Noted Time PHQ-9 Depression Total Score: 15 024 11:32 AM EDT documented as of this encounter Care Teams Vinyl Dipper Relationship Specialty Start Date End Date Virginie Monet MD [address] [place] [address], [place] [address] PCP - General Family Medicine 07/30/20 documented as of this encounter
--- OUTSIDE RECORDS SUMMARY | 2024-11-14 10:13 | XMS_ITS | Encounter Summary ---
Author Organization [employer] Address [address] [facility] [address] 7t [place] [address] Care Team Providers Care Hood Fitter Name Role Phone Virginie Monet MD Primary Care Provide r Encounter Details Date Type Department Care Team ([facility] Contact Info) Description 05/19/2024 Orders Only [facility] [address] [place], [place] [phone] Virginie Monet MD [address] [place], [place] [phone] Social History Tobacco Use Types Packs/Day Years [...] Description 11/20/2024 10:15 AM EDT Office Visit [facility] [address] [place] [address] Virginie Monet MD [address] [place] [address] 12/09/2024 9:45 AM EDT Office Visit [address] [address] 12/18/2024 9:00 AM EDT Office Visit [address] [address] Virginie Monet MD [address] [place] [address] documented as of this encounter Visit Diagnoses Not on filedocumented in this encounter Additional Health Concerns Assessment Noted Time PHQ-9 Depression Total Score: 15 024 11:32 AM EDT documented as of this encounter Care Teams Hood Fitter Relationship Specialty Start Date End Date Virginie Monet MD [address] [place] [address] PCP - General Family Medicine 07/30/20 documented as of this encounter
--- OUTSIDE RECORDS SUMMARY | 2024-11-14 10:13 | XMS_ITS | Encounter Summary ---
Author Organization [employer] Address [address] [facility] [address] 7t [place] [address] Care Team Providers Care Mmi Teacher Name Role Phone Virginie Monet MD Primary Care Provide r Reason for Visit * Reason Comments Med Refill Encounter Details Date Type Department Care Team ([facility] st Contact Info) Description 01/03/2024 Refill [facility] [address] [place], [place] [phone] Virginie Monet MD [address] [place], [place] [phone] Anxiety Social History Tobacco Use Types Packs/Day [...] Description 11/20/2024 10:15 AM EDT Office Visit [address] [address] Virginie Monet MD [address] [place] [address] 12/09/2024 9:45 AM EDT Office Visit [address] [address] 12/18/2024 9:00 AM EDT Office Visit [address] [address] Virginie Monet MD [address] [place] [address] documented as of this encounter Visit Diagnoses Diagnosis Anxiety Anxiety state, unspecified documented in this encounter Additional Health Concerns Assessment Noted Time PHQ-9 Depression Total Score: 0 05/29/20 23 2:13 PM EST documented as of this encounter Care Teams Mmi Teacher Relationship Specialty Start Date End Date Virginie Monet MD [address] [place] [address] [place] [address] PCP - General Family Medicine 07/30/20 documented as of this encounter
--- OUTSIDE RECORDS SUMMARY | 2024-11-14 10:13 | XMS_ITS | Encounter Summary ---
Author Organization [employer] Address 75 [facility] 7t [place] [address] Care Team Providers Care Flooring Machine Feeder Name Role Phone Virginie Monet MD Primary Care Provide r Encounter Details Date Type Department Care Team (Late Contact Info) Description 08/23/2022 Orders Only [facility] [address] [place] [phone] Yolanda Rose DO [address] [place], [place] [phone] Social History Tobacco Use Types Packs/Day Years [...] Description 11/20/2024 10:15 AM EDT Office Visit [facility] [address] [place] [address] [phone] Virginie Monet MD [address] [place] [address] [phone] 12/09/2024 9:45 AM EDT Office Visit [address] [phone] 12/18/2024 9:00 AM EDT Office Visit [address] [address] Virginie Monet MD [address] [place], [place] [phone] documented as of this encounter Visit Diagnoses Not on filedocumented in this encounter Care Teams Flooring Machine Feeder Relationship Specialty Start Date End Date Virginie Monet MD [address] [place] [address] PCP - General Family Medicine 07/30/20 documented as of this encounter
--- OUTSIDE RECORDS SUMMARY | 2024-11-14 10:13 | XMS_ITS | Encounter Summary ---
Author Organization [employer] Address [address] [facility] [address] 7t [place] [address] Care Team Providers Care Collar Cutter Name Role Phone Virginie Monet MD Primary Care Provide r Reason for Visit * Reason Onset Date Comments Appointment Request 06/25/2023 Encounter Details Date Type Department Care Team ([facility] Contact Info) Description 06/25/2023 Telephone [facility] [address] [place], [place] [phone] Virginie Monet MD [address] [place] [address] Appointment Request Social History Tobacco Use Types [...] call back to r/s appt on 06/25 race and sports book writer did cancel appt per patient request documented in this encounter Plan of Treatment Upcoming Encounters Date Type Department Care Team (Late st Contact Info) Description 11/20/2024 10:15 AM EDT Office Visit [facility] [address] [place] [phone] Virginie Monet MD [address] [place] [address] 12/09/2024 9:45 AM EDT Office Visit [address] [address] 12/18/2024 9:00 AM EDT Office Visit [facility] [address] [place] [address] Virginie Monet MD [address] [place] [address] documented as of this encounter Visit Diagnoses Not on filedocumented in this encounter Additional Health Concerns Assessment Noted Time PHQ-9 Depression Total Score: 0 05/29/20 23 2:13 PM EST documented as of this encounter Care Teams Collar Cutter Relationship Specialty Start Date End Date Virginie Monet MD [address] [place] [address] PCP - General Family Medicine 07/30/20 documented as of this encounter
--- OUTSIDE RECORDS SUMMARY | 2024-11-14 10:13 | XMS_ITS | Encounter Summary ---
Author Organization [employer] Address 75 [facility] 7t [place] [address] Care Team Providers Care Centerless Grinder Operator Name Role Phone Virginie Monet MD Primary Care Provide r Reason for Visit * Reason Onset Date Comments Referral 10/02/2022 Encounter Details Date Type Department Care Team ([facility] Contact Info) Description 10/02/2022 Telephone [facility] [address] [place], [place] [phone] Virginie Monet MD [address] [place] [address] Referral Social History Tobacco Use Types Packs/Day [...] EDT Tc from Andreea Waller critical care unit nurse requesting a referral for occupational therapy evaluation for pt to be able to get a shower chair and electric lift chair . Please call to clarify at phone # [phone]. documented in this encounter Plan of Treatment Upcoming Encounters Date Type Department Care Team (Late st Contact Info) Description 11/20/2024 10:15 AM EDT Office Visit [facility] [address] [place] [address] Virginie Monet MD [address] [place] [address] 12/09/2024 9:45 AM EDT Office Visit [address] [address] 12/18/2024 9:00 AM EDT Office Visit [address] [address] Virginie Monet MD [address] [place] [address] documented as of this encounter Visit Diagnoses Not on filedocumented in this encounter Care Teams Centerless Grinder Operator Relationship Specialty Start Date End Date Virginie Monet MD [address] [place] [address] PCP - General Family Medicine 07/30/20 documented as of this encounter
--- OUTSIDE RECORDS SUMMARY | 2024-11-14 10:14 | XMS_ITS | Encounter Summary ---
Author Organization [employer] Address 75 [facility] 7t [place] [address] Care Team Providers Care Electrical Test Engineer Name Role Phone Virginie Monet MD Primary Care Provide r Reason for Visit * Reason Onset Date Comments AESTHETICIAN 09/17/2024 Encounter Details Date Type Department Care Team ([facility] Contact Info) Description 09/17/2024 Telephone [facility] [address] [place], [place] [phone] Virginie Monet MD [address] [place] [address] AESTHETICIAN Social History Tobacco Use Types Packs/Day Years [...] she filled out paper work for more AESTHETICIAN 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 Contact pt at [phone] documented in this encounter Plan of Treatment Upcoming Encounters Date Type Department Care Team ([facility] st Contact Info) Description 11/20/2024 10:15 AM EDT Office Visit [facility] [address] [place] [address] Virginie Monet MD [address] [place] [address] 12/09/2024 9:45 AM EDT Office Visit [address] [address] 12/18/2024 9:00 AM EDT Office Visit [address] [address] Virginie Monet MD [address] [place] [address] documented as of this encounter Visit Diagnoses Not on filedocumented in this encounter Additional Health Concerns Assessment Noted Time PHQ-9 Depression Total Score: 0 09/17/19 25 10:52 AM EST documented as of this encounter Care Teams Electrical Test Engineer Relationship Specialty Start Date End Date Virginie Monet MD [address] [place] [address] PCP - General Family Medicine 07/30/20 documented as of this encounter
--- OUTSIDE RECORDS SUMMARY | 2024-11-14 10:14 | XMS_ITS | Clinical Summary ---
Author Organization [facility] Address [address] [place] [address] Care Team Providers Care Banana Room Cutter Name Role Phone Unavailable Primary Care Provider [...]
== END 2024-11-14 09:46 | disposition home or self-care (01) ==
LOC: HO.HPS 09:27
PROVIDERS: PCP Internal Medicine; Referring Provider Internal Medicine; Visit Provider Physician Assistant Medical
DX: F17.210 Nicotine dependence, cigarettes, uncomplicated (principal)
CPT/HCPCS: G0296

== ENCOUNTER 2024-11-14 09:43 | Outpatient (REF) | payer OTHER, SELFPAY ==
--- NOTE | ~2024-11-14 | CT_ITS ---
CLINICAL HISTORY: F17.210 - Nicotine dependence, cigarettes, uncomplicated CT lung cancer screening (LDCT) Comparison: 09/07/2023 Technique: Axial CT images of the chest using low-dose technique. Referring provider counseled the patient on shared decision-making for LDCT screening. Additional counseling was provided on smoking cessation. Effective radiation dose total: DLP 44.3 mGycm, CTDIvol 1.4 mGy. Findings: Lun.4 mm apical segment right upper lobe pulmonary lesion, unchanged. 0.7 cm lesion along the right major fissure, unchanged Coronary artery calcifications: Moderate Limited upper abdomen: Unremarkable Other: None Impression: Category 2: Benign appearance or behavior, continue annual screening Category 1: Normal; continue annual screening Category 2: Benign appearance or behavior, continue annual screening Category 3: Probably benign, [address] recommended Category 4A: Suspicious, [address] recommended; may consider PET/CT Category 4B: Suspicious, Additional diagnostics and/or tissue sampling recommended Category 4X: Suspicious, Additional diagnostics and/or tissue sampling recommended Category 0: Recalls (incomplete screen due to Incomplete coverage, Noise, Respiratory motion, Expiration, Obscured by acute abnormality) This document has been electronically signed by: Landon Steele MD on 11/15/2024 08:19:30
== END 2024-11-14 09:44 | disposition home or self-care (01) ==
LOC: HO.CT 09:43
PROVIDERS: PCP Internal Medicine; Visit Provider Physician Assistant Medical
DX: Z12.2 Encounter for screening for malignant neoplasm of respiratory organs (principal); F17.210 Nicotine dependence, cigarettes, uncomplicated
CPT/HCPCS: 71271; G0296

== ENCOUNTER → 2024-11-14 09:44 | Outpatient (BNV) | payer OTHER, SELFPAY | PROVIDERS: PCP Internal Medicine; Visit Provider Specialist | DX: F17.210 Nicotine dependence, cigarettes, uncomplicated (principal) | CPT/HCPCS: 71271 ==

== ENCOUNTER 2024-12-19 08:29 | Outpatient (AMB) | payer OTHER, SELFPAY ==
--- OUTSIDE RECORDS SUMMARY | 2024-12-19 08:38 | XMS_ITS | Encounter Summary ---
Author Organization [employer] Address [address] [place] [address] Care Team Providers Care Ash Pit Worker Name Role Phone Virginie Monet MD Primary Care Provide r Encounter Details Date Type Department Care Team ([facility] st Contact Info) Description 10/12/2023 Orders Only [facility] [address] [place], [place] [phone] Virginie Monet MD [address] [place], [place] [phone] Social History Tobacco Use Types Packs/Day Years [...] Care Team (Late st Contact Info) Description 01/06/2025 9:45 AM EDT Office Visit [facility] [address] [place] [address] documented as of this encounter Visit Diagnoses Not on filedocumented in this encounter Additional Health Concerns Assessment Noted Time PHQ-9 Depression Total Score: 0 05/29/20 23 2:13 PM EST documented as of this encounter Care Teams Ash Pit Worker Relationship Specialty Start Date End Date Virginie Monet MD [address] [place] [address] PCP - General Family Medicine 07/30/20 documented as of this encounter
[2024-12-19 08:52] VITALS: BP 126/50; PULSE 97; O2SAT 96; BMI 33.9
--- NOTE | 2024-12-19 08:52 | MHC.OFFVIS ---
Vital Signs 12/19/24 08:52 Height 5 ft 8 in Weight 222 lb 10.67 oz BMI 33.9 BP 126/50 L Blood Pressure Location Lt brachial Position Sitting Pulse 97 Pulse Source Pulse Oximeter Pulse Oximetry (%) 96 Oxygen Delivery Method Room Air Intake Visit Reasons: copd Machine Guide Base Winder Required: No Accompanied by: Self / Same As Patient Allergies adhesive tape Allergy (Severe, Verified 12/19/24 08:55) BLISTERS Tetanus Vaccines and Toxoid [TETANUS VACCINES & TOXOID] Allergy (Intermediate, Verified 12/19/24 08:55) SWELLING, REDNESS surgical tape Allergy (Severe, Uncoded 10/30/24 10:55) hives/boils HPI Comments Details: The patient is a 59-year-old woman with a known history of asthma in addition to tobacco dependency. She states that she has had asthma most of her life as a child and was based on the fact that she was a premature baby. The patient continued to smoke throughout her life. More recently she started developing worsening shortness of breath and cough. She did have a rescue inhaler that she could use as needed. Back in early March the patient started developing worsening shortness of breath in addition to cough and chest discomfort. She was evaluated in the ED and her D-dimer was elevated. She did have a CT scan of the chest PE protocol the ruled out any evidence of pulmonary emboli. However, she did have pulmonary nodules noted some calcified and some noncalcified. It appears that the right-sided nodule has grown slightly from 0.5 cm to 0.[address] last [address] scan. The patient also had evidence of chronic bronchitis and also mild degree of emphysema in the upper lung zones. Currently she is feeling better. She stop smoking about a week ago and she used using the Nicotrol inhaler as needed. Patient also had a DNA swab which was normal for the alpha-1 genotype,MM. 02/02/2023 the patient is here for pulmonary follow-up visit. The patient did have a sleep study. The patient had a very mild degree of sleep apnea. Her Phoenix score was 5.4. in addition to this the patient did have also some hypoxia for about 5 minutes. The the patient can consider positional therapy versus restarting her CPAP. In addition to that she continues with current respiratory therapy that is beer appears to be affecting beneficial. she continues to have sleep dyspnea on exertion. Mild in severity. Does improve with her current respiratory regimen. She would also benefit from pulmonary rehabilitation. The patient is also participating in the lung cancer screening program. Her next CT scans can be arcus of 2022. 08/10/2023 the patient is here for a pulmonary follow-up visit. She is complaining of significant dyspnea on exertion. In with minimal activity she is getting very winded. She has a hard time going up a flight of stairs. She does need to go up a flight of stairs to get to her home. She usually leads to stopping between. Denies any chest pressures. Sometimes she does have palpitations any increased heart rate even at rest. She has been using Anoro that has been effective for. She does feel some chest tightness and wheezing. Mild in severity. We did look at her CT scan of the chest she had back in 2021. She does have pulmonary nodules that had not changed from 2020. Still the patient has had risk and does require to have a CT scan at this time. If the nodules are stable in her next CT scan no additional imaging studies may be warranted. In the meantime we did go for walking oximetry. The patient did become significantly dyspneic with a dyspnea score of 8/10. Heart rate was initially not increasing staying about 100 to throughout the ambulation. However, then when she has had down the heart rate quickly jumped to 130 beats per minute. Seems to be narrow complex and regular. We did look at her coronary artery CT scan. Appeared that she had a mild single-vessel disease of the obtuse marginal branch. I am concerned with the potential cardiac component so therefore I will go ahead and order a stress echo. In the meantime will also follow-up with PFTs and CT scan to follow-up pulmonary nodules. Will optimize respiratory regimen by switching her from the Anoro to Trelegy. If the patient has any worsening symptoms or increased palpitations then she should quickly be evaluated. 10/12/2023 the patient is here for a pulmonary follow-up visit. The patient overall has been complaining of increasing dyspnea on exertion. Aaiw-ro-ouqiqquu severity. He feels like he has been getting worse the Trelegy inhaler has been helpful. She does have a rescue inhaler she does not typically use. The patient will benefit from pulmonary rehabilitation at this time. She unfortunately continues to smoke although she is cut down significantly down to about 2-3 cigarettes a day. We talked about smoking cessation whenever she is ready completely she should come up with a quit date. We did look at her last CT scan of the chest. Her pulmonary nodules appear to be stable. The patient also underwent pulmonary function studies demonstrating moderate COPD although it appears that is improved when compared to a few years back suggesting that the medications are helping. The patient also had a abnormal stress test. She will be following up with a [facility] assisted living soon. If Cardiology feels that she is doing okay she should start to pulmonary rehabilitation. 03/21/2024 the patient is here for pulmonary follow-up visit. Overall she is doing well. She did have a full cardiac workup which was reassuring. She does have some underlying CAD but is currently being treated medically. Therefore, we did review her PFTs and the patient is a great candidate for pulmonary rehabilitation. Will go ahead and submit a referral. The patient will continue with current respiratory therapy. She is having some headaches in the morning. Will go ahead and check an overnight oximetry to make sure the oxygen levels are stable while sleeping. Will continue to monitor her lung cancer screening program. The patient has been working on quitting smoking which is reassuring. Will follow-up in 6-8 months. The patient has any issues prior to that she will call for an earlier assessment. 12/19/2024 the patient is here for pulmonary follow-up visit. The patient is overall doing well. He weeks ago she has had developed worsening respiratory symptoms. She had to use her nebulizer. That she did feel better after few days. Likely a viral syndrome. She did not required any prednisone or antibiotics. She continues on the [employer] and she also continues on the Viditir. She is starting to walk more. Unfortunately she is still smoking cigarettes. Doing about 6 cigarettes a day. She needs to quit. She does have condition that she needs to quit. She is part of the lung cancer screening program. Her last CT scan was November 2024 which we personally reviewed in the office. She does have pulmonary nodules that appear to be stable. She does have some emphysema. Otherwise her CAT scans consider rods 2. She will have another CAT scan in 1 year. The patient is doing well on the current therapy will continue therapy follow-up in a year if he has any issues prior to that she will call for an earlier assessment. [facility] Medical History (Updated 11/14/24 @ 09:44 by Kait Beckwith PA-C) Coronary artery disease Nicotine dependence, cigarettes, uncomplicated Pulmonary hypertension Dyspnea Vitamin D deficiency Mixed irritable bowel syndrome Michael's thyroiditis Fibromyalgia Type 2 diabetes mellitus Obesity (BMI 30-39.9) Hypothyroidism BOY (obstructive sleep apnea) Hypertension Pulmonary nodules Asthma-COPD overlap syndrome Surgical History (Updated 11/14/24 @ 09:40 by Kait Beckwith PA-C) History of colon resection History of cholecystectomy History of colonoscopy History of esophagogastroduodenoscopy (EGD) History of lithotripsy History of surgery on right wrist History of excision of mass (09/28/21) History of elbow surgery Status post tendon repair Status post trigger finger release H/O hand surgery H/O excision of ganglion cyst H/O arthroscopy of right knee Family History Father Myocardial infarction Hypertension Diabetes CVD (cardiovascular disease) Mother Restless leg syndrome Diabetes Paternal Aunt Breast cancer Uterine cancer Social History Are you a primary care asst to a significant other at home: No Do you presently have visiting nurse or other home services: Yes (OVER[employer] CLE[employer] 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 3 x week, 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 or older and lives alone: No Alcohol intake: former Patient Tobacco Use Status: Current everyday Tobacco user Tobacco use type: Cigarette Cigarettes Per Day: 6 Years Smoked: (onset 18yo, 1/2-1ppd x 41yrs, now 1/4ppd - 30pyh) Review of Systems Const Denies chills, Denies fatigue, Denies fever(s), Reports weight gain and Denies weight loss ENT Denies dizziness, Denies lip swelling and Denies tongue swelling Card Denies chest pain, Denies leg edema, Denies lightheadedness, Denies palpitations, Denies dyspnea on exertion, Denies orthopnea and Denies other Resp Reports cough, Denies dyspnea on exertion and Reports wheezing GI Denies hematochezia and Denies change in stool character Musc Denies abnormal gait, Denies muscle weakness, Denies numbness, Denies radiating pain into limb and Denies tingling Neuro Denies abnormal gait, Denies dizziness, Denies numbness and Denies tingling Psych Denies no additional complaints Endo Denies fatigue and Denies palpitations Gerson/Lymph Denies easy bleeding and Denies lymphadenopathy Aller/Immun Denies lip swelling, Denies tongue swelling and Reports wheezing Physical Exam Vital Signs: Last Vital Signs Pulse 97 12/19/24 08:52 BP 126/50 L 12/19/24 08:52 Pulse Ox 96 12/19/24 08:52 Oxygen Delivery Method Room Air 12/19/24 08:52 BMI result Body Mass Index 33.9 Const General: alert HEENT Head: Yes atraumatic Neck Neck: Yes normal visual inspection, Yes full ROM and Yes no lymphadenopathy Chest Chest palpation & inspection: normal inspection of the chest Resp Effort & Inspection: normal respiratory effort Auscultation: diminished lung sounds Cardio Rate: regular rate and tachycardic (sinus tach after exercise 130) Rhythm: regular rhythm Heart sounds: S1 normal heart sound present and S2 normal heart sound present GI Palpation (GI): Soft to palpation and nontender Auscultation: normal bowel sounds Skin General skin exam: rashes and/or lesions noted Assessment & Plan Assessment & Plan (1) Pulmonary hypertension: Code(s): I27.20 - Pulmonary hypertension, unspecified Category: Medical (2) Dyspnea: Code(s): R06.00 - Dyspnea, unspecified Category: Medical Qualifiers: Dyspnea type: dyspnea on exertion Qualified Code(s): R06.09 - Other forms of dyspnea (3) Asthma-COPD overlap syndrome: Code(s): J44.9 - Chronic obstructive pulmonary disease, unspecified Category: Medical (4) BOY (obstructive sleep apnea): Comment: very mild Code(s): G47.33 - Obstructive sleep apnea (adult) (pediatric) Category: Medical (5) Tobacco dependence: Code(s): F17.200 - Nicotine dependence, unspecified, uncomplicated Category: Medical (6) Pulmonary nodules: Comment: largest nodule 7mm nodule 11/2019, 05/04 was unchanged Code(s): R91.8 - Other nonspecific abnormal finding of lung field Category: Medical Plan continue Trelegy 200 short-acting beta agonist as needed singulair Tobacco cessation LDCT Follow-up in 8-12 months Coding Level of Care Code Est Pt Level 4 (92332) Diagnoses Pulmonary hypertension I27.20 Dyspnea on exertion R06.09 Dyspnea type: dyspnea on exertion Asthma-COPD overlap syndrome J44.9 BOY (obstructive sleep apnea) G47.33 Tobacco dependence F17.200 Pulmonary nodules R91.8 Time Spent (min) 17
== END 2024-12-19 09:08 | disposition home or self-care (01) ==
LOC: HO.HPS 08:29
PROVIDERS: PCP Internal Medicine; Visit Provider Hospitalist
DX: I27.20 Pulmonary hypertension, unspecified (principal); R06.09 Other forms of dyspnea; J44.9 Chronic obstructive pulmonary disease, unspecified; G47.33 Obstructive sleep apnea (adult) (pediatric); F17.200 Nicotine dependence, unspecified, uncomplicated; R91.8 Other nonspecific abnormal finding of lung field
CPT/HCPCS: 99214

== ENCOUNTER 2025-01-02 07:32 | Outpatient (REF) | payer OTHER, SELFPAY ==
--- NOTE | ~2025-01-02 | MM_ITS ---
EXAMINATION: MM SCREENING DIGITAL BREAST TOMOSYNTHESIS, BILATERAL CLINICAL INFORMATION: Screening. Asymptomatic. COMPARISON: Mammography: Comparison is made with available priors TECHNIQUE: Digital breast mammography with tomosynthesis is performed in both the craniocaudal and mediolateral oblique views along with computer-aided detection (CAD). FINDINGS: The breasts are heterogeneously dense, which may obscure small masses (ACR BI-RADS breast composition Category c). There are no significant masses, abnormal calcifications, or other abnormalities. MM/MM tomosynthesis screening BI IMPRESSION: No mammographic evidence of malignancy. ASSESSMENT: BI-RADS BI-RADS 1 - Negative RECOMMENDATION: Routine annual mammography screening. 1 year F/U This examination should not preclude the clinical evaluation of a suspicious palpable abnormality. This patient's information was entered into a reminder system with a target due date for their next mammogram. Electronically signed by: Nyla Yu DO 01/07/2025 03:07 PM EDT
== END 2025-01-02 07:33 | disposition home or self-care (01) ==
LOC: HO.MAMMO 07:32
PROVIDERS: PCP Internal Medicine; Visit Provider Internal Medicine
DX: Z12.31 Encounter for screening mammogram for malignant neoplasm of breast (principal)
CPT/HCPCS: 77063; 77067

== ENCOUNTER → 2025-01-02 07:45 | Outpatient (BNV) | payer OTHER, SELFPAY | PROVIDERS: PCP Internal Medicine; Visit Provider Internal Medicine | DX: Z12.31 Encounter for screening mammogram for malignant neoplasm of breast (principal) | CPT/HCPCS: 77063; 77067 ==

== ENCOUNTER 2025-01-13 08:47 | Outpatient (REF) | payer OTHER, SELFPAY ==
--- OUTSIDE RECORDS SUMMARY | 2024-11-13 06:55 | XMS_ITS | Encounter Summary ---
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 Contact pt at [phone] documented in this encounter Plan of Treatment Upcoming Encounters Date Type Department Care Team ([facility] st Contact Info) Description 11/20/2024 10:15 AM EDT Office Visit [facility] [address] [place] [phone] Virginie Monet MD [address] [place] [phone] 12/09/2024 9:45 AM EDT Office Visit [address] [phone] 12/18/2024 9:00 AM EDT Office Visit [address] [address] Virginie Monet MD [address] [place] [address] documented as of this encounter Visit Diagnoses Not on filedocumented in this encounter Additional Health Concerns Assessment Noted Time PHQ-9 Depression Total Score: 0 09/17/19 25 10:52 AM EST documented as of this encounter Care Teams Carbonating Stone Cleaner Relationship Specialty Start Date End Date Virginie Monet MD [address] [place] [address] PCP - General Family Medicine 07/30/20 documented as of this encounter
--- OUTSIDE RECORDS SUMMARY | 2024-11-13 06:55 | XMS_ITS | Encounter Summary ---
Author Organization [facility] Address [address] [facility] [address] [place] [address] Care Team Providers Care Supervisor Plate Pasting Name Role Phone Virginie Monet MD Primary Care Provide r Reason for Visit * Reason Onset Date Comments Med Refill 02/05/2023 Encounter Details Date Type Department Care Team ([facility] st Contact Info) Description 02/05/[address] [facility]INE [address] [place], [place] [phone] Virginie Monet MD [address] [place] [address] Med Refill Social History Tobacco Use Types [...] Care Team (Late st Contact Info) Description 11/20/2024 10:15 AM EDT Office Visit [address] [address] Virginie Monet MD [address] [place] [phone] 12/09/2024 9:45 AM EDT Office Visit [address] [phone] 12/18/2024 9:00 AM EDT Office Visit [address] [address] Virginie Monet MD [address] [place] [phone] documented as of this encounter Visit Diagnoses Not on filedocumented in this encounter Additional Health Concerns Assessment Noted Time PHQ-9 Depression Total Score: 0 11/15/19 23 9:09 AM EDT documented as of this encounter Care Teams Supervisor Plate Pasting Relationship Specialty Start Date End Date Virginie Monet MD [address] [place] [phone] PCP - General Family Medicine 07/30/20 documented as of this encounter
--- OUTSIDE RECORDS SUMMARY | 2024-11-13 06:55 | XMS_ITS | Clinical Summary ---
Author Organization [employer] Address [address] [place] [address] Care Team Providers Care Follow Up Manager Name Role Phone Virginie Monet MD [...] spray into affected nostril(s) See administration instructions. [place] 1 spray by intranasal route once; if [...] complication, without long-term current use of insulin ([facility]) Use 1 sensor every 14 days per package directions 2 each 2022 Active Continuous Blood Gluc [employer] (FreeStyle Shane 2 [place]) deviceIndication s:Type 2 diabetes mellitus without complication, without long-term current use of insulin ([facility]) Use reader for CGM per [...] AND AT BEDTIME DIRECTED 2023 Active Lancets (KonbiniTouch Delica Plus Ugmkic33I) miscIndications: Type 2 diabetes mellitus with hyperglycemia, without long-term current use of insulin ([facility]) USE DIRECTED TWICE DAILY 100 each 11 2023 Active OneTouch Ultra Test test stripIndications :Type 2 diabetes mellitus with hyperglycemia, without long-term current use of insulin ([facility]) USE DIRECTED TWICE DAILY 100 [...] hyperglycemia, without long-term current use of insulin ([facility]) Check blood sugar before 1 [...] AT BEDTIME 180 capsule 1 2023 Active levothyroxine (Synthroid, Levoxyl) 125 MCG tabletIndication [...] hyperglycemia, with long-term current use of insulin (CMS/[facility]) Inject 1 mg under the skin 1 (one) time per week. 2 each 3 2024 Active Continuous Glucose [employer] (FreeStyle Shane 3 [place]) deviceIndication s:Type 2 diabetes mellitus with hyperglycemia, [...] with long-term current use of insulin (CMS/HCC) Use to test blood sugar 2 times daily in case of CGM failure or extremes of BG 100 each 11 09/30 Active insulin lispro (HumaLOG) 100 UNIT/ML injectionIndicat ions:Type 2 diabetes mellitus with hyperglycemia, without long-term current use of insulin (CMS/[facility]) ADMINISTER PER SLIDING SCALE WITH 1 MEAL ONCE A DAY: 250-299=3U,300-3 49=6U,>400=9U AND CALL CLINIC 3 mL 1 2024 Active losartan-hydroCH LOROthiazide (Hyzaar) 50-12.5 MG tabletIndication s:Essential hypertension TAKE 1 TABLET BY MOUTH DAILY 30 tablet 2 2024 Active oxyCODONE (Roxicodone) 5 MG immediate release tabletIndication s:Chronic bilateral low back pain without sciatica Take 1 tablet (5 mg) by mouth every 8 (eight) hours if needed for severe pain for up to 28 days. 84 tablet 11/24 Active DULoxetine (Cymbalta) [address] capsuleIndicatio ns:Depression, unspecified depression type TAKE 1 CAPSULE(60 MG) BY MOUTH IN THE MORNING 90 capsule 2024 Active insulin lispro (HumaLOG KWIKPEN) 100 UNIT/ML injectionIndicat ions:Type 2 diabetes mellitus with hyperglycemia, without long-term current use of insulin (CMS/[facility]) ADMINISTER ONCE A DAY WITH 1 MEAL, 3U FOR BLOOD SUGAR BETWEEN 250-299, 6U FOR BLOOD SUGAR 300-349,FOR BLOOD SUGAR>400 INJECT 9U AND CALL CLINIC 3 mL 1 10/15 Discontinued DULoxetine (Cymbalta) [address] capsuleIndicatio ns:Depression, unspecified depression type TAKE 1 CAPSULE(60 MG) BY MOUTH IN THE MORNING 90 capsule 10/28 Discontinued losartan-hydroCH LOROthiazide (Hyzaar) 50-12.5 MG tabletIndication s:Essential hypertension TAKE 1 TABLET BY MOUTH DAILY 30 tablet 2 10/20 Discontinued oxyCODONE (Roxicodone) 5 MG immediate release tabletIndication s:Chronic bilateral low back pain without sciatica Take 1 tablet (5 mg) by mouth every 8 (eight) hours if needed for severe pain for up to 28 days. 84 tablet 10/27 Discontinued( Reorder (will not trigger notification to [...] oxycodone 5mg Q8H PRN Indication: fibromyalgia Last HANDKERCHIEF SAMPLE CLERK Agreement: 01/09/24 Tier II (HANDKERCHIEF SAMPLE CLERK visits every 3 months) - last [...] AM EDT): Dr Radha Schulz (psychiatrist) phone [phone], is now taking over of her mental health and will take over her medications for mental health Diverticular disease 09/11/2023 Epigastric hernia 09/11/2023 Incisional hernia 09/11/2023 Osteoarthritis 09/11/2023 Assessment & Plan (10/11/2023 11:50 AM EDT): C/w PRN meds Patient will go to medical records for guidance for new TIRE WORKER services Pain in both hands 08/27/2023 Assessment & Plan (10/11/2023 11:51 AM EDT): As above Class 2 severe obesity due t o excess calories with serious comorbidity in adult 05/29/2023 Assessment & Plan (05/16/2024 10:23 AM EDT): Discussed re weight reduction options including exercise, life style modifications, diet and referral to erp specialist. Recommended to decrease soda and sugary [...] Assessment & Plan (10/11/2023 11:52 AM EDT): TIRE WORKER services will be requested Assessment & [...] pill count as expected Pt prefers individual HANDKERCHIEF SAMPLE CLERK appointments, will schedule with Benita Mahmood [...] Encounters Date Type Department Care Team Description 11/12/2024 Refill [facility] [address] [place] [address] Virginie Monet MD Depression, unspecified depression type 11/04/2024 9:45 AM EDT Clinical Support [facility] [address] [place] [address] Krupa Gonzalez RN Chronic pain of left knee 11/04/2024 Travel 10/31/2024 Telephone [facility] [address] [place] [address] Virginie Monet MD Pre-op Exam 10/27/2024 Refill [facility] [address] [place] [address] Virginie Monet MD Depression, unspecified depression type 10/24/2024 Refill [facility] [address] [place] [address] Virginie Monet MD Chronic bilateral low back pain without sciatica 10/24/2024 Orders Only GENERIC EXTERNAL DATA DEPARTMENT Provider, Generic External Data 10/23/2024 Telephone [facility] [address] [place] [address] Nemo Tapia RN ER Follow-up 10/22/2024 Orders Only GENERIC EXTERNAL DATA DEPARTMENT Provider, Generic External Data 10/19/2024 Refill [facility] [address] [place] [address] Virginie Monet MD Essential hypertension 10/14/2024 Refill [facility] [address] [place] [address] Virginie Monet MD Type 2 diabetes mellitus with hyperglycemia, without long-term current use of insulin (CMS/[facility]) 10/14/2024 Travel 10/13/2024 Telephone [facility] [address] [place] [address] Siria English, RN Results 10/13/2024 Travel 09/26/2024 Refill [facility] [address] [place] [address] Virginie Monet MD Chronic bilateral low back pain without sciatica 09/22/2024 Orders Only GENERIC EXTERNAL DATA DEPARTMENT Provider, Generic External Data 09/17/2024 Telephone [facility] [address] [place] [address] Virginie Monet MD TIRE WORKER 09/16/2024 10:45 AM EST Office Visit [facility] [address] [place] [address] Virginie Monet MD Essential hypertension (Primary Dx); Type 2 diabetes mellitus without complication, without long-term current use of insulin (CMS/[facility]); Type 2 diabetes mellitus with hyperglycemia, with long-term current use of insulin (CMS/[facility]); Tear of meniscus of left knee as current injury, unspecified meniscus, unspecified tear type, initial encounter 09/16/2024 Refill [facility] [address] [place] [address] Virginie Monet MD Type 2 diabetes mellitus with hyperglycemia, with long-term current use of insulin (CMS/HCC) 09/16/2024 Travel 09/09/2024 9:45 AM EST Office Visit [facility] [address] [place] [address] Racheal Flynn FNP Fibromyalgia (Primary Dx); Long-term current use of opiate analgesic; Acute meniscal tear of left knee, subsequent encounter 09/09/2024 Telephone [facility] [address] [place], [place] [phone] Racheal Flynn FNP HANDKERCHIEF SAMPLE CLERK Tier 09/09/2024 Travel 08/29/2024 Refill [facility] [address] [place] [address] Virginie Monet MD Depression, unspecified depression type 08/27/2024 Refill [facility] [address] [place] [address] Virginie Monet MD Chronic bilateral low back pain without sciatica 08/26/2024 Refill [facility] [address] [place], [place] [phone] Virginie Monet MD Prediabetes from Last 3 Months Immunizations Name Administration [...] Description 11/20/2024 10:15 AM EDT Office Visit [facility] [address] [place] [address] Virginie Monet MD [address] [place] [address] 12/09/2024 9:45 AM EDT Office Visit [facility] [address] [place] [address] 12/18/2024 9:00 AM EDT Office Visit [facility] [address] [place] [address] Virginie Monet MD [address] [place] [address] Health Maintenance Due Date Last Done Comments [...] Comments POCT AIMEE-14 URINE DRUG SCREEN Routine 11/04/2024 10:29 AM EDT Chronic pain of left knee CT ABDOMEN PELVIS W CONTRAST Routine 10/24/2024 11:35 AM EDT URINALYSIS, COMPLETE, WITH REFLEX TO CULTURE Routine 10/24/2024 7:52 AM EDT LIPASE Routine 10/24/2024 7:48 AM EDT MAGNESIUM Routine 10/24/2024 7:48 AM EDT HEPATIC FUNCTION PANEL Routine 7:48 AM EDT COMPREHENSIVE METABOLIC PANEL Routine 10/24/2024 7:48 AM EDT CBC WITH AUTO DIFFERENTIAL Routine [...] complication, without long-term current use of insulin ([facility]/HCC) Type 2 diabetes mellitus with hyperglycemia, with long-term current use of insulin (CMS/HCC) POCT GLUCOSE Routine 09/16/2024 10:52 AM EST Type 2 diabetes mellitus without complication, without long-term current use of insulin (CMS/HCC) Type 2 diabetes mellitus with hyperglycemia, with long-term current use of insulin (CMS/HCC) POCT AIMEE-14 URINE DRUG SCREEN Routine 09/09/2024 1:39 PM EST Long-term current use of opiate analgesic HEPATITIS C VIRAL RNA, QUANTITATIVE, REAL-TIME PCR [...] Results * POCT AIMEE-14 Urine Drug Screen (11/04/2024 10:29 AM EDT) Only the most recent of2 resultswithin the time period is included. THC Positive TCA, Urine Positive Oxycodone Screen, Urine Positive Urine Urine specimen obtained by clean catch procedure / Unknown 11/04/2024 10:29 AM EDT Narrative Krupa Gonzalez, KELSEY - 11/04/2024 10:29 AM EDT .Lot# [id number] Exp: 05-15-26 us Nanci Dwyer PhD POINT OF CARE TEST ENTER/EDIT O RDERABLES Final Result * CT Abdomen Pelvis w/ Contrast (10/24/2024 11:35 AM EDT) Anatomical Region Laterality Modality Body, Pelvis, Abdomen Computed T omography 10/24/2024 11:3 5 AM EDT Narrative 10/24/2024 12:23 PM EDT ? [facility] ?[address] ?[place] [address] ? CT Scan Report ? Signed ? Patient: Martins,Anastasia ?MR#: [id number] ?? 07 ? : 1965 ?Acct:[id number] ? Age/Sex: 59 / F ?ADM Date: 10/24/24 ? Loc: HO.ED ? Attending Dr: ? Ordering Physician: Nisreen Sunshine ?? Date of Service: 10/24/24 ?? Procedure(s): CT abdomen pelvis w IV con ?? Accession Number(s): [id number] ? cc: Virginie Monet MD; Nisreen Sunshine ? Report Number: ?? [id number]: Total DLP = ??903.00 mGy-cm ?? EXAMINATION: ?? CT ABDOMEN AND PELVIS WITH CONTRAST ? CLINICAL INFORMATION: ?? Left lower quadrant, epigastric, and right upper quadrant pain. Nausea, ?? vomiting, and diarrhea. ? COMPARISON: ?? None available. ? TECHNIQUE: ?? Multidetector volumetric images were obtained from the superior aspect ?? of the liver through the pubic symphysis following administration 85 mL ?? of Omnipaque 350 intravenous contrast. Sagittal and coronal reformatted ?? images were obtained on the technologist's workstation. ? Oral contrast: No ? This CT examination was performed using dose optimization techniques as ?? appropriate, variously including the following: ?? *Automated exposure control ?? *Adjustment of mA and/or kV according to patient size (this includes ?? techniques or standardized protocols for targeted exams where dose is ?? matched to indication/reason for exam; i.e. extremities or head) ?? *Use of iterative reconstruction technique ? FINDINGS: ?? Unfortunately, the IV infiltrated during contrast injection. The ?? examination was scanned noncontrast. ? LUNG BASES: ?? Lung bases are clear. No effusions, heart size normal. Normal GE ?? junction. ? LIVER, GALLBLADDER, AND BILIARY TREE: The unenhanced liver is normal in ?? size, shape, and attenuation. No focal hepatic lesion or biliary ductal ?? dilatation is present. Gallbladder is surgically absent. ? PANCREAS: Unremarkable. ? SPLEEN: Unremarkable. ? ADRENAL GLANDS: Unremarkable. ? KIDNEYS AND URETERS: The kidneys are normal in size, shape, and ?? attenuation. No hydronephrosis, hydroureter, or calculi seen. No ?? perinephric stranding. ? BLADDER: Unremarkable. ? GASTROINTESTINAL TRACT: ?? There is an anastomosis at the rectosigmoid junction, with unremarkable ?? appearance. ?? Remainder of the colon is normal in course, caliber, and appearance ?? with only minimal diverticulosis of the sigmoid area. ?? The stomach is normal in appearance. The duodenum is normal. ?? The small bowel is normal in course and caliber without inflammatory ?? abnormality. ?? A normal appendix is visualized. ?? No rectal abnormality. ? ABDOMINAL WALL: ?? There is a tiny left inguinal fat-containing hernia. ? LYMPH NODES: Normal. ? VASCULAR: Mild to moderate atheromatous calcification of the aorta and ?? iliac vessels. No aneurysm. ? PELVIC VISCERA: The uterus and adnexa are unremarkable. ? OSSEOUS STRUCTURES: No suspicious lytic or blastic bone lesions. Normal ?? imaging appearance. ? CT/CT abdomen pelvis w IV con ?? IMPRESSION: ?? No acute findings in the abdomen or pelvis. ? Electronically signed by: ??George Main MD ??10/24/2024 12:20 PM EDT RP ?? Workstation: [id number] ? Dictated By: ?George Main MD ? Signed By: ?<Electronically signed by George Main MD in OV> ?10/24/24 1220 ? DD/ 1135 ? TD/TT: 10/24/24 1157 ? Animal Technician: ? Procedure Note Mauricio Ribeiro - 10/24/[address] [address] [address] Scan Report Signed Patient: Virginie Martins AMR#: [id number] 07 : 1965Acct:[id number] Age/Sex: 59 / FADM Date: 10/24/24 Loc: HO.ED Attending Dr: Ordering Physician: Nisreen Sunshine Date of Service: 10/24/24 Procedure(s): CT abdomen pelvis w IV con Accession Number(s): [id number] cc: Virginie Monet MD; Nisreen Sunshine Report Number: [id number]: Total DLP = 903.00 mGy-cm EXAMINATION: CT ABDOMEN AND PELVIS WITH CONTRAST CLINICAL INFORMATION: Left lower quadrant, epigastric, and right upper quadrant pain. Nausea, vomiting, and diarrhea. COMPARISON: None available. TECHNIQUE: Multidetector volumetric images were obtained from the superior aspect of the liver through the pubic symphysis following administration 85 mL of Omnipaque 350 intravenous contrast. Sagittal and coronal reformatted images were obtained on the technologist's workstation. Oral contrast: No This CT examination was performed using dose optimization techniques as appropriate, variously including the following: *Automated exposure control *Adjustment of mA and/or kV according to patient size (this includes techniques or standardized protocols for targeted exams where dose is matched to indication/reason for exam; i.e. extremities or head) *Use of iterative reconstruction technique FINDINGS: Unfortunately, the IV infiltrated during contrast injection. The examination was scanned noncontrast. LUNG BASES: Lung bases are clear. No effusions, heart size normal. Normal GE junction. LIVER, GALLBLADDER, AND BILIARY TREE: The unenhanced liver is normal in size, shape, and attenuation. No focal hepatic lesion or biliary ductal dilatation is present. Gallbladder is surgically absent. PANCREAS: Unremarkable. SPLEEN: Unremarkable. ADRENAL GLANDS: Unremarkable. KIDNEYS AND URETERS: The kidneys are normal in size, shape, and attenuation. No hydronephrosis, hydroureter, or calculi seen. No perinephric stranding. BLADDER: Unremarkable. GASTROINTESTINAL TRACT: There is an anastomosis at the rectosigmoid junction, with unremarkable appearance. Remainder of the colon is normal in course, caliber, and appearance with only minimal diverticulosis of the sigmoid area. The stomach is normal in appearance. The duodenum is normal. The small bowel is normal in course and caliber without inflammatory abnormality. A normal appendix is visualized. No rectal abnormality. ABDOMINAL WALL: There is a tiny left inguinal fat-containing hernia. LYMPH NODES: Normal. VASCULAR: Mild to moderate atheromatous calcification of the aorta and iliac vessels. No aneurysm. PELVIC VISCERA: The uterus and adnexa are unremarkable. OSSEOUS STRUCTURES: No suspicious lytic or blastic bone lesions. Normal imaging appearance. CT/CT abdomen pelvis w IV con IMPRESSION: No acute findings in the abdomen or pelvis. Electronically signed by: George Main MD 10/24/2024 12:20 PM EDT RP Dictated By: George Main MD Signed By: <Electronically signed by George Main MD in OV> 10/24/24 1220 DD/ 1135 TD/TT: 10/24/24 1157 Animal Technician: [facility] External Provider IMG CT PROCEDURES Final Result * (ABNORMAL) Urinalysis, Complete, with Reflex to Culture (10/24/2024 7:52 AM EDT) Color Urine Yellow [facility] Appearance Urine Cloudy [facility] PH 6.0 5.0 - 9.0 [facility] Glucose Urine UA Negative Negative mg/dL [facility] Urine Blood Negative Negative [facility] Specific Gregory - Urine 1.025 1.005 - 1.025 [facility] Urine Protein Trace Neg-Trace mg/dL [facility] Urine Ketones Trace Negative mg/dL [facility] Nitrite Urine Negative Negative [facility] Leukocyte Esterase Urine Trace(A) Negative [facility] RBC Urine 0-2 0 - 2 /HPF [facility] Urine WBC 0-5 0 - 5 /HPF [facility] Urine Squamous Epithelial Cell >20 0 - 2 /HPF [facility] Urine Bacteria 4+ None Seen [facility] Hyaline Casts, Urine 0-2 0 - 2 /LPF [facility] 10/24/2024 7:52 AM EDT 10/24/2024 7:54 AM EDT Narrative [facility] - 10/24/2024 8:06 AM EDT [id number], Clean Catch us Generic External Data Provider LAB URINE ORDERAB LES Final Result [facility] [address] [place], [place] [phone] * (ABNORMAL) CBC auto differential (10/24/2024 7:48 AM EDT) Only the most recent of2 resultswithin the time period is included. White Blood Count 5.9 4.8 - 10.8 X10*3/uL [facility] Red Blood Count 5.37 4.20 - 5.50 X10*6/uL [facility] Hemoglobin 14.5 12.0 - 16.0 g/dl [facility] Hematocrit 42.9 37.0 - 47.0 % [facility] Mean Corpuscular Volume 79.9(L) 80.0 - 98.0 fL [facility] Mean Corpuscular Hemoglobin 27.0 27.0 - 33.0 pg [facility] Mean Corpuscular HGB Conc 33.8 31.0 - 35.0 g/dl [facility] Red Cell Distribution Width 14.0 11.0 - 16.0 % [facility] Platelet Count 317 160 - 400 X10*3/uL [facility] Mean Platelet Volume 9.2(L) 9.4 - 12.3 fL [facility] Neutrophils Percent Auto 61.6 45 - 73 % [facility] Imm Gran Pct Auto 0.2 0.0 - 0.4 % [facility] Lymphocytes Percent Auto 29.3 20 - 40 % [facility] Monocytes Percent Auto 6.6 2 - 11 % [facility] Eosinophils Percent Auto 2.0 0 - 4 % [facility] Basophils Percent Auto 0.3 0 - 2 % [facility] NRBC Pct Auto 0.0 0.0 - 0.2 /100WBC [facility] Neutrophils Absolute Auto 3.6 2.0 - 8.3 x10*3/uL [facility] Imm Gran Abs Auto 0.01 0.00 - 0.03 X10*3/uL [facility] Lymphocytes Absolute Auto 1.7 1.2 - 4.9 X10*3/uL [facility] Monocytes Absolute Auto 0.4 0.1 - 1.2 X10*3/uL [facility] Eosinophils Absolute Auto 0.1 0.0 - 0.4 X10*3/uL [facility] Basophils Absolute Auto 0.0 0.0 - 0.2 X10*3/uL [facility] NRBC Abs Auto 0.000 0.0 - 0.012 X10*3/uL [facility] 10/24/2024 7:48 AM EDT 10/24/2024 7:51 AM EDT us Generic External Data Provider LAB BLOOD ORDERAB LES Final Result Performing Organization Address [place]/[facility] Co de Phone Number [facility] [address] [place] [phone] * Magnesium (10/24/2024 7:48 AM EDT) Magnesium 1.8 1.6 - 2.6 mg/dL [facility] 10/24/2024 7:48 AM EDT 10/24/2024 7:51 AM EDT Generic External Data Provider LAB BLOOD ORDERAB LES Final Result Performing Organization Address [facility] de Phone Number [facility] [address] [place] [phone] * Lipase (10/24/2024 7:48 AM EDT) Only the most recent of2 resultswithin the time period is included. Lipase 46 8 - 78 U/L [facility] 10/24/2024 7:48 AM EDT 10/24/2024 7:51 AM EDT us Generic External Data Provider LAB BLOOD ORDERAB LES Final Result Performing Organization Address City/[facility]/ZIP Co de Phone Number [facility] [address] [place] [address] [phone] * Hepatic Function Panel (10/24/2024 7:48 AM EDT) Bilirubin, Direct 0.2 0.0 - 0.5 mg/dL [facility] 10/24/2024 7:48 AM EDT 10/24/2024 7:51 AM EDT us Generic External Data Provider LAB BLOOD ORDERAB LES Final Result [facility] [address] [place] [phone] * (ABNORMAL) Comprehensive Metabolic Panel (10/24/2024 7:48 AM EDT) Only the most recent of2 resultswithin the time period is included. Pathologist [facility] Sodium 139 135 - 145 mmol/L [facility] Potassium 3.6 3.3 - 5.1 mmol/L [facility] Chloride 105 96 - 108 mmol/L [facility] Carbon Dioxide 23 22 - 29 mmol/L [facility] Anion Gap 15 12 - 20 [facility] Urea Nitrogen (BUN) 11 9 - 16 mg/dL [facility] Creatinine, Serum 0.66 0.5 - 1.4 mg/dL [facility] Creatinine Clr Calc Pharmacy 114.3 [facility] Comment:Provided height and weight: 172.72 cm,101.5 kg.eGFR (calculated from the MDRD study equation) and eCrCl(calculated from the Cockcroft-Gault equation) are based ondifferent parameters and may not yield comparable results.If eCrCl result is absurd, please check patient'sheight/weight. Estimated Glomerular Filt Rate >60 [facility] Comment:Chronic Kidney Disea se: Estimated GFR < 60 mL/min/1.19s8Svpebm Kidney Disease: Estimated GFR < 15 mL/min/1.73m2 Glucose 235(H) 60 - 115 mg/dL [facility] Calcium 9.7 8.4 - 10.2 mg/dL [facility] Bilirubin, Total 0.3 0.0 - 1.0 mg/dL [facility] Aspartate Amino Transferase 17 5 - 31 U/L [facility] Alanine Aminotransferase 42(H) 0 - 31 U/L [facility] Total Protein 7.2 6.5 - 8.0 g/dL [facility] Albumin Level 3.9 3.5 - 5.0 g/dL [facility] Alkaline Phosphatase 111 39 - 117 U/L [facility] 10/24/2024 7:48 AM EDT 10/24/2024 7:51 AM EDT us Generic External Data Provider LAB BLOOD ORDERAB LES Final Result Performing Organization Address City/State/[facility] Co de Phone Number [facility] [address] [place] [phone] * MR Knee w/o Contrast Right (10/23/2024 7:15 AM EDT) Anatomical Region Laterality Modality Magnetic Resonan ce 10/23/2024 7:15 AM EDT Narrative 10/23/2024 8:20 AM EDT ? [facility] ?[address] ?[place] [address] ? Magnetic Resonance Report ? Signed ? Patient: Virginie Martins ?MR#: [id number] ?? 07 ? : 1965 ?Acct:[id number] ? Age/Sex: 59 / F ?ADM Date: 10/23/24 ? Loc: HO.MRI ? Attending Dr: Pete Varela MD ? Ordering Physician: Pete Varela MD ?? Date of Service: 10/23/24 ?? Procedure(s): MR knee RT wo con ?? Accession Number(s): [id number] ? cc: Virginie Monet MD; Pete Varela [...] signed by George Main MD in OV> ?10/23/2418 ? DD/ 0715 ? TD/TT: 10/23/24 0750 ? Animal Technician: ? Procedure Note Donpamter, Image - 10/23/2024 [place] [address] Magnetic Resonance Report Signed Patient: Virginie Martins AMR#: [id number] 07 : 1965Acct:[id number] Age/Sex: 59 / FADM Date: 10/23/24 Loc: HO.MRI Attending Dr: Pete Varela MD Ordering Physician: Pete Varela MD Date of Service: 10/23/24 Procedure(s): MR knee RT wo con Accession Number(s): [id number] cc: Virginie Monet MD; Pete Varela MD [...] 10/23/24 0818 DD/ 0715 TD/TT: 10/23/24 0750 Animal Technician: [facility] External Provider IMG MRI PROCEDURES Final Result * SARS-CoV-2 RNA, Influenza A/B, and RSV RNA, Ql NAAT (10/22/2024 6:35 PM EDT) Influenza A PCR NEGATIVE Negative [facility] Influenza B PCR NEGATIVE Negative [facility] Resp Syncy Virus RNA Qual PCR NEGATIVE Negative [facility] SARS COV2 PCR NEGATIVE Negative [facility] Comment:All test results mus t be [...] use by authorized laboratories.Testing performed on the [employer] GeneXpert utilizingreal-time RT-PCR.All SARS CoV2 and positive influenza A/B results arereported to [facility]. 10/22/2024 6:35 PM EDT 10/22/2024 6:39 PM EDT Generic External Data Provider LAB MICROBIOLOGY - GENERAL ORDERABLES Final Result Performing Organization Address [place]/[facility]/ZIP Co de Phone Number [facility] [address] [place] [phone] * Lactic Acid (10/22/2024 6:35 PM EDT) Lactic Acid 1.9 0.5 - 2.0 mmol/L [facility] 10/22/2024 6:35 PM EDT 10/22/2024 6:39 PM EDT Generic External Data Provider LAB BLOOD ORDERAB LES Final Result Performing Organization Address [place]/[facility]/ZIP Co de Phone Number [facility] [address] [place] [phone] * Blood Culture (First) (10/22/2024 6:34 PM EDT) Blood Venous blood specimen / Unknown 10/22/2024 6:34 PM EDT 10/22/2024 6:39 PM EDT Comment:Blood Narrative [facility] - 10/27/2024 8:39 PM EDT Blood Culture (First) No growth after 5 days. Specimen Source: Blood Generic External Data Provider LAB MICROBIOLOGY - GENERAL ORDERABLES Final Result Performing Organization Address [place]/[facility] Co de Phone Number [facility] [address] [place] [phone] * Blood Culture (Second) (10/22/2024 5:03 PM EDT) Blood Venous blood specimen / Unknown 10/22/2024 5:03 PM EDT 10/23/2024 10:16 AM EDT Comment:Blood Narrative [facility] - 10/23/2024 10:16 AM EDT Blood Culture (Second) Test not performed NO SPECIMEN RECEIVED; DIFFICULT DRAW Specimen Source: Blood Generic External Data Provider LAB MICROBIOLOGY - GENERAL ORDERABLES Final Result Performing Organization Address [place]/[facility] Co de Phone Number [facility] [address] [place] [phone] * (ABNORMAL) Glucose, Whole Blood (09/22/2024 7:09 AM EDT) Glucose, Whole Blood 204(H) 60 - 115 mg/dL [facility] Comment:METER #: [id number] 09/22/2024 7:09 AM EDT 09/22/2024 7:14 AM EDT Generic External Data Provider LAB BLOOD ORDERAB LES Final Result Performing Organization Address [facility] de Phone Number [facility] [address] [place] [phone] * (ABNORMAL) POCT HGB A1C (09/16/2024 [...] Media Lot # [id number] Lot# Expiration Date [id number] Blood Capillary blood specimen / Unknown 09/16/2024 10:52 AM EST Virginie Lopez MD POINT OF CARE TEST EN TER/EDIT ORDERABLES Final Result * Lipid Panel with Reflex to Direct LDL (04/22/2024 9:30 AM EDT) Triglycerides 149 <150 mg/dL [facility] Comment:Desirable Triglyceri de: less than 150 mg/dLBorderline High Triglyceride 150-199 mg/dLHigh Triglyceride: 200-499 mg/dLVery High Triglyceride: greater than or equal to 5OO mg/dL Cholesterol 154 <200 mg/dL [facility] Comment:Desirable Cholestero l: less than 200 mg/dLBorderline High Cholesterol: 200-239 mg/dLHigh Cholesterol: greater than 239 mg/dL LDL Cholesterol Calculated 79 <100 mg/dL [facility] Comment:Desirable LDL: less than 100 mg/dLNear Optimal/Above Optimal LDL: 110- 129 mg/dLBorderline High LDL: 130-159 mg/dLHigh LDL: 160-189 mg/dLVery High LDL: greater than or equal to 190 mg/dL HDL Cholesterol 46 >40 mg/dL [facility] Comment:Desirable HDL: great er than 40 mg/dL Note: This HDL assay may give artificially low results in patients with liver disease. Blood 04/22/2024 9:30 AM EDT 04/22/2024 11:35 AM EDT us Virginie Lopez MD LAB BLOOD ORDERABLES Final Result [facility] [address] [place] [phone] * Hepatitis C Viral RNA, Quantitative, Real-Time PCR (04/22/2024 9:30 AM EDT) Hepatitis C Viral Load <15 NOT DETECTED NOT DETECTED IU/mL [facility] HCV Log PCR <1.18 NOT DETECTED NOT DETECTED Log IU/mL [facility] Comment:For additional infor екатерина, please refer tohttp://education.[employer]/faq/FZK74i6(This link is being provided for informational/educational purposes only.)THIS TEST WAS PERFORMED AT:[employer] [place] [phone] PERRY MD Blood 04/22/2024 9:30 AM EDT 04/22/2024 11:35 AM EDT us Virginie Lopez MD LAB BLOOD ORDERABLES Final Result Performing Organization Address [place]/[facility] de Phone Number [facility] [address] [place] [phone] * Albumin, Random Urine W/Creatinine (04/22/2024 9:30 AM EDT) Creatinine, Urine 193.55 mg/dL [facility] Microalbumin Urine 16.0 mg/L [facility] Microalbum Creatinine Ratio Ur 8.2 <30 ug/mg cr [facility] Comment:Albumin/Creatinine R atio Reference Ranges: Normal: < 30 ug/mg creatinine Microalbuminuria: 30 - 300 ug/mg creatinineClinical Albuminuria: > 300 ug/mg creatinine Urine (Urine, Random) 04/22/2024 9:30 AM EDT 04/22/2024 11:23 AM EDT us Virginie Lopez MD LAB URINE ORDERABLES Final Result Performing Organization Address [place]/[facility] de Phone Number [facility] [address] [place] [phone] * HIV-1/2 Antigen and Antibodies, Fourth Generation, with Reflexes (04/22/2024 9:30 AM EDT) [facility] HIV AB/AG Nonreactive Nonreactive [facility] Comment:HIV-1 p24 Ag and/or HIV-1/HIV-2 Ab not detected.A test result that is nonreactive does not exclude thepossibility of exposure to or infection with HIV-1 and/orHIV-2. Nonreactive results in this assay for individualswith prior exposure to HIV-1 and/or HIV-2 may be due toantigen and antibody levels that are below the limit ofdetection of this assay.The [employer] HIV Ag/Ab Combo assay result andsupplemental assay results should be interpreted inconjunction with the patient's clinical presentation,history and other laboratory results. If the results areinconsistent with clinical evidence, additional testing issuggested to confirm the result. Blood Venous blood specimen / Unknown 04/22/2024 9:30 AM EDT 04/22/2024 11:35 AM EDT us Virginie Lopez MD LAB BLOOD ORDERABLES Final Result [facility] [address] [place] [phone] * BI Mammogram Screening Tomosynthesis Bilateral (01/01/2024 8:00 AM EDT) Anatomical Region Laterality Modality Breast Bilateral Mammography 01/01/2024 8:00 AM EDT Narrative 01/29/2024 3:53 PM EDT ? [facility] ? [address] ?[place] [address] ? Mammography Report ? Signed ? Patient: Martins,Anastasia ?MR#: [id number] ?? 07 ? : 1965 ?Acct:[id number] ? Age/Sex: 58 / F ?ADM Date: 06/18/24 ? Loc: HO.MAMMO ? Attending Dr: Virginie Lopez MD ? Ordering Physician: Virginie Monet MD ?Results: ?? 1Negative ? Date of Service: 01/01/24 ?Follow Up: 1 Year From Orig ?? inal Mammogram ? Procedure(s): MM tomosynthesis screening BI ?? Accession Number(s): [id number] ? cc: Virginie Monet MD ? EXAMINATION: [...] 1549 ? DD/ 0800 ? TD/TT: ? Animal Technician: ? Procedure Note Donotuseinterpreter, Image - 01/29/2024 [facility] [address] [place] [address] Mammography Report Signed Patient: Virginie Martins AMR#: [id number] 07 : 1965Acct:[id number] Age/Sex: 58 / FADM Date: 01/01/24 Loc: HO.MAMMO Attending Dr: Virginie Lopez MD Ordering Physician: Virginie Monet MDResults: 1Negative Date of Service: 01/01/24Follow Up: 1 Year From Orig inal Mammogram Procedure(s): MM tomosynthesis screening BI Accession Number(s): [id number] cc: Virginie Monet MD EXAMINATION: MM SCREENING [...] in OV> 01/29/24 1549 DD/ 0800 TD/TT: Animal Technician: Virginie Lopez MD [facility] al Result * HPV mRNA E6/E7 (02/27/2018 3:34 PM EDT) HPV mRNA E6/E7 Not Detected NOT DETECTED [facility] Comment: This test was performed using the APTIMA(R) HPV Assay ([employer] This assay detects E6/E7 viral messenger RNA (mRNA) from 14 high-risk HPV types (16,18,31,33,35,39,45,51, 52,56,58,59,66,68). For additional information please refer to: http://education.[employer]/faq/MGI916h7 (This link is being provided for informational/ educational purposes only.) The analytical performance characteristics of this assay have been determined by [facility] [place], [place]. The modifications have not been cleared or approved by the FDA. This assay has been validated pursuant to the CLIA regulations and is used for clinical purposes. Test Performed by [facility], [place] [facility], [address] [place] [address] Adriel Barclay M.D., Ph.D., Director of Laboratories , CLIA [id number] Please note: ??Effective 03/27/2016, HPV testing will be performed using [employer]'s APTIMA test which targets mRNA. Detecting mRNA instead of DNA, as in older methods, offers significant improvements in specificity. 02/27/2018 3:34 PM EDT Ela Kern CNM HISTORICAL/NON ORDERABLE LABS Final Result [facility] [address] * Pap Smear (02/27/2018 12:00 AM EDT) Swab Ela Kern CNM LAB CYTOLOGY ORDERABLES F inal Result [facility] [address] [place] [phone] * Colonoscopy (01/31/2017) Colonoscopy Normal Normal Narrative Ashley Recio - 01/31/2017 Repeat colonoscopy in 10 years . Results are in [facility] 01/31/2017 us Historical Provider MD HEALTH MAINTENANCE Final Result from Last 3 Months or Most Recently Relevant to Health Maintenance Insurance [facility] STANDARD [facility] ONE CARE < 65 CCA ONE CARE < 65 Care Teams Follow Up Manager Relationship Specialty Start Date End Date Virginie Monet MD [address] [place] [phone] PCP - General Family Medicine 07/30/20
--- OUTSIDE RECORDS SUMMARY | 2024-11-13 06:55 | XMS_ITS | Data Portability ---
Author Organization [employer] Address [address] [place] [phone] Care Team Providers Care Occupational Nurse Name Role Phone HIM CCA OTHER SHANKAR [...] Not Available Not Available No t Available [employer] Ultra Test strips USE DIRECTED TWICE DAILY [...] active Not Available Not Available Not Available [employer] COVID-19 Rapid At-Home kit TEST DIRECTED TODAY [...] SNOMED-CT Code Diagnosis ICD10 Code Diagnosis Note [id number] Bryce Rivera MD Main - instED [address] [place] [phone] 03/04/2024 20:21:06 03/04/2024 22:03:09 Headache [id number] R51.9 Reports a history of migraines, but [...] Wills Member ID Guarantor Name 03/04/2024 1 [facility] - DOS ON OR AFTER 2022 - DUAL ELIGIBLE - LONG-TERM OPTIONS AND ONE CARE (MEDICARE REPLACEMENT/ADV ANTAGE - HMO) Shankar Martins [id number] Shankar Martins Notes Date Note Type Note Provider Name and Address Organization Details Recorded Time 03/04/2024 text/html CRC Nurse Triage Notes (Racheal Pabon): Reason For Request: Pt reporting severe headache for 3 weeks>suffers from migraines and has taken medication with no improvements>162/90 BP Chief Complaints: Headache PMH: Hypertension, Other Allergies: No Known Pain Assessment: Level 10 out of 10 Comments: Medication Aide verified the member's name//address and phone number. [...] ................... ................... ................... ................... ................... ................... ........ Business Banking Relationship Manager Note From Ho Joe: Dispatched to the [...] agreed to go by ambulance. 911 contacted [facility] on scene and [facility] took patient care. all times are approx.report completed by sarah joe ................... ................... ................... ................... ................... ................... ................... ........ Disposition: Fulfilled Bryce Rivera MD [address] [place] [address],[address], [place], [phone], [employer] 03/04/2024 21:30:34 OBGyn Episode No OBEpisode recorded.
--- OUTSIDE RECORDS SUMMARY | 2024-11-13 06:55 | XMS_ITS | Encounter Summary ---
Author Organization [employer] Address [address] [facility] [place] [address] Care Team Providers Care Missileman Name Role Phone Virginie Monet MD Primary Care Provide r Encounter Details Date Type Department Care Team ([facility] Contact Info) Description 10/31/2023 Telephone [facility] [address] [place], [place] [phone] Virginie Monet MD [address] [place] [address] Social History Tobacco Use Types Packs/Day Years [...] 10/31/2023 11:32 AM EDT Faxed referral for OPS ANALYST services for Ry today, per patient request. documented in this encounter Plan of Treatment Upcoming Encounters Date Type Department Care Team (Late st Contact Info) Description 11/20/2024 10:15 AM EDT Office Visit [facility] [address] [place] [phone] Virginie Monet MD [address] [place] [phone] 12/09/2024 9:45 AM EDT Office Visit [address] [address] 12/18/2024 9:00 AM EDT Office Visit [address] [address] Virginie Monet MD [address] [place] [phone] documented as of this encounter Visit Diagnoses Not on filedocumented in this encounter Additional Health Concerns Assessment Noted Time PHQ-9 Depression Total Score: 0 05/29/20 23 2:13 PM EST documented as of this encounter Care Teams Missileman Relationship Specialty Start Date End Date Virginie Monet MD [address] [place] [address] PCP - General Family Medicine 07/30/20 documented as of this encounter
--- OUTSIDE RECORDS SUMMARY | 2024-11-13 06:55 | XMS_ITS | Encounter Summary ---
Author Organization [employer] Address [address] [facility] [address] [place] [address] Care Team Providers Care Corporate Compliance Manager Name Role Phone Virginie Monet MD Primary Care Provide r Reason for Visit * Reason Onset Date Comments Med Refill 06/04/2024 Encounter Details Date Type Department Care Team ([facility] Contact Info) Description 06/04/2024 Telephone [facility] [address] [place], [place] [phone] Virginie Monet MD [address] [place] [address] Med Refill Social History Tobacco Use Types [...] release tablet To be sent to: [id number] - [place], [place] - [address] [facility] documented in this encounter Plan of Treatment Upcoming Encounters Date Type Department Care Team (Late st Contact Info) Description 11/20/2024 10:15 AM EDT Office Visit [facility] [address] [place] [phone] Virginie Monet MD [address] [place] [address] 12/09/2024 9:45 AM EDT Office Visit [address] [address] 12/18/2024 9:00 AM EDT Office Visit [facility] [address] [place] [address] [place] [phone] Virginie Monet MD [address] [place] [address] documented as of this encounter Visit Diagnoses Not on filedocumented in this encounter Additional Health Concerns Assessment Noted Time PHQ-9 Depression Total Score: 15 024 11:32 AM EDT documented as of this encounter Care Teams Corporate Compliance Manager Relationship Specialty Start Date End Date Virginie Monet MD [address] [place] [address] PCP - General Family Medicine 07/30/20 documented as of this encounter
--- OUTSIDE RECORDS SUMMARY | 2024-11-13 06:55 | XMS_ITS | Encounter Summary ---
Author Organization [email or web address] Address [address] [facility] 7t [place] [address] Care Team Providers Care Yacht Hand Name Role Phone Virginie Monet MD Primary Care Provide r Reason for Visit * Reason Onset Date Comments Appointment Request 02/05/2024 Encounter Details Date Type Department Care Team ([facility] Contact Info) Description 02/05/2024 Telephone [facility] [address] [place], [place] [phone] Virginie Monet MD [address] [place] [address] Appointment Request Social History Tobacco Use Types [...] Description 11/20/2024 10:15 AM EDT Office Visit [facility] [address] [place] [phone] Virginie Monet MD [address] [place] [address] 12/09/2024 9:45 AM EDT Office Visit [address] [address] 12/18/2024 9:00 AM EDT Office Visit [address] [address] Virginie Monet MD [address] [place] [address] documented as of this encounter Visit Diagnoses Not on filedocumented in this encounter Additional Health Concerns Assessment Noted Time PHQ-9 Depression Total Score: 15 024 11:32 AM EDT documented as of this encounter Care Teams Yacht Hand Relationship Specialty Start Date End Date Virginie Monet MD [address] [place] [address] PCP - General Family Medicine 07/30/20 documented as of this encounter
--- OUTSIDE RECORDS SUMMARY | 2024-11-13 06:55 | XMS_ITS | Encounter Summary ---
Author Organization [employer] Address [address] [facility] [address] [place] [address] Care Team Providers Care Cardiologist Name Role Phone Virginie Monet MD Primary Care Provide r Reason for Visit * Reason Onset Date Comments Nurse Triage 12/14/2023 Encounter Details Date Type Department Care Team ([facility] st Contact Info) Description 12/14/2023 Telephone [facility] [address] [place], [place] [phone] Virginie Monet MD [address] [place] [address] Nurse Triage Social History Tobacco Use Types [...] immediate release tablet To be sent to: [facility] documented in this encounter Plan of Treatment Upcoming Encounters Date Type Department Care Team (Late st Contact Info) Description 11/20/2024 10:15 AM EDT Office Visit [facility] [address] [place] [phone] Virginie Monet MD [address] [place] [address] 12/09/2024 9:45 AM EDT Office Visit [address] [address] 12/18/2024 9:00 AM EDT Office Visit [address] [address] Virginie Monet MD [address] [place] [address] documented as of this encounter Visit Diagnoses Diagnosis Chronic bilateral low back pain without sciatica documented in this encounter Additional Health Concerns Assessment Noted Time PHQ-9 Depression Total Score: 0 05/29/20 23 2:13 PM EST documented as of this encounter Care Teams Cardiologist Relationship Specialty Start Date End Date Virginie Monet MD [address] [place] [address] PCP - General Family Medicine 07/30/20 documented as of this encounter
--- OUTSIDE RECORDS SUMMARY | 2024-11-13 06:55 | XMS_ITS | Encounter Summary ---
Author Organization [employer] Address [address] [facility] [address] [place] [address] Care Team Providers Care Lavatory Attendant Name Role Phone Virginie Monet MD Primary Care Provide r Reason for Visit * Reason Onset Date Comments Appointment Request 06/25/2023 Encounter Details Date Type Department Care Team ([facility] Contact Info) Description 06/25/2023 Telephone [facility] [address] [place], [place] [phone] Virginie Monet MD [address] [place] [address] Appointment Request Social History Tobacco Use Types [...] call back to r/s appt on 06/25 song writer did cancel appt per patient request documented in this encounter Plan of Treatment Upcoming Encounters Date Type Department Care Team (Late st Contact Info) Description 11/20/2024 10:15 AM EDT Office Visit [facility] [address] [place] [phone] Virginie Monet MD [address] [place] [address] 12/09/2024 9:45 AM EDT Office Visit [address] [address] 12/18/2024 9:00 AM EDT Office Visit [facility] [address] [place] [phone] Virginie Monet MD [address] [place] [address] documented as of this encounter Visit Diagnoses Not on filedocumented in this encounter Additional Health Concerns Assessment Noted Time PHQ-9 Depression Total Score: 0 05/29/20 23 2:13 PM EST documented as of this encounter Care Teams Lavatory Attendant Relationship Specialty Start Date End Date Virginie Monet MD [address] [place] [address] PCP - General Family Medicine 07/30/20 documented as of this encounter
--- OUTSIDE RECORDS SUMMARY | 2024-11-13 06:55 | XMS_ITS | Encounter Summary ---
Author Organization [employer] Address [address] [facility] [address]t [place] [address] Care Team Providers Care Agricultural Produce Packer Name Role Phone Virginie Monet MD Primary Care Provide r Reason for Visit * Reason Onset Date Comments Referral 10/02/2022 Encounter Details Date Type Department Care Team ([facility] Contact Info) Description 10/02/2022 Telephone [facility] 230 [place], [place] [phone] Virginie Monet MD [address] [place] [address] Referral Social History Tobacco Use Types Packs/Day [...] lift chairs. * Telephone Encounter - Elsa Rachel - 10/02/2022 2:04 PM EDT Tc from Andreea Waller patient care provider requesting a referral for occupational therapy evaluation for pt to be able to get a shower chair and electric lift chair . Please call to clarify at phone # [phone]. documented in this encounter Plan of Treatment Upcoming Encounters Date Type Department Care Team (Late st Contact Info) Description 11/20/2024 10:15 AM EDT Office Visit [facility] [address] [place] [phone] Virginie Monet MD [address] [place] [address] 12/09/2024 9:45 AM EDT Office Visit [address] [address] 12/18/2024 9:00 AM EDT Office Visit [address] [address] Virginie Monet MD [address] [place] [address] documented as of this encounter Visit Diagnoses Not on filedocumented in this encounter Care Teams Agricultural Produce Packer Relationship Specialty Start Date End Date Virginie Monet MD [address] [place] [address] PCP - General Family Medicine 07/30/20 documented as of this encounter
--- OUTSIDE RECORDS SUMMARY | 2024-11-13 06:55 | XMS_ITS | Encounter Summary ---
Author Organization [employer] Address [facility] [address] [address] [place] [address] Care Team Providers Care Litigation Attorney Name Role Phone Virginie Monet MD Primary Care Provide r Reason for Visit * Reason Comments Med Refill Encounter Details Date Type Department Care Team ([facility] st Contact Info) Description 11/12/2024 Refill [facility] [address] [place], [place] [phone] Virginie Monet MD [address] [place], [place] [phone] Depression, unspecified depression type Social History Tobacco [...] Description 11/20/2024 10:15 AM EDT Office Visit [facility] [address] [place] [address] Virginie Monet MD [address] [place] [address] 12/09/2024 9:45 AM EDT Office Visit [address] [address] 12/18/2024 9:00 AM EDT Office Visit [facility] [address] [place] [address] Virginie Monet MD [address] [place] [address] documented as of this encounter Visit Diagnoses Diagnosis Depression, unspecified depression type documented in this encounter Additional Health Concerns Assessment Noted Time PHQ-9 Depression Total Score: 0 09/17/19 25 10:52 AM EST documented as of this encounter Care Teams Litigation Attorney Relationship Specialty Start Date End Date Virginie Monet MD [address] [place] [address] PCP - General Family Medicine 07/30/20 documented as of this encounter
--- OUTSIDE RECORDS SUMMARY | 2024-11-13 06:55 | XMS_ITS | Clinical Summary ---
Author Organization [facility] Address [address] [place] [address] Care Team Providers Care Plug Machine Operator Name Role Phone Unavailable Primary Care Provider [...]
--- OUTSIDE RECORDS SUMMARY | 2024-11-13 06:55 | XMS_ITS | Encounter Summary ---
Author Organization [employer] Address [address] [facility] [address] [place] [address] Care Team Providers Care Carpet Mechanic Name Role Phone Virginie Monet MD Primary Care Provide r Reason for Visit * Reason Comments Med Refill Encounter Details Date Type Department Care Team ([facility] st Contact Info) Description 01/22/2024 Refill [facility] 230 [place], [place] [phone] Virginie Monet MD 230 [place], [place] [phone] Anxiety Social History Tobacco Use Types Packs/Day [...] Description 11/20/2024 10:15 AM EDT Office Visit [address] [address] Virginie Monet MD [address] [place] [address] 12/09/2024 9:45 AM EDT Office Visit [address] [address] 12/18/2024 9:00 AM EDT Office Visit [address] [address] Vriginie Monet MD [address] [place] [address] documented as of this encounter Visit Diagnoses Diagnosis Anxiety Anxiety state, unspecified documented in this encounter Additional Health Concerns Assessment Noted Time PHQ-9 Depression Total Score: 15 024 11:32 AM EDT documented as of this encounter Care Teams Carpet Mechanic Relationship Specialty Start Date End Date Virginie Monet MD [address] [place] [address], [place] [address] PCP - General Family Medicine 07/30/20 documented as of this encounter
--- OUTSIDE RECORDS SUMMARY | 2024-11-13 06:55 | XMS_ITS | Encounter Summary ---
Author Organization [employer] Address [address] [facility] 7t [place] [address] Care Team Providers Care Check Writer Name Role Phone Virginie Monet MD Primary Care Provide r Encounter Details Date Type Department Care Team (Late Contact Info) Description 08/23/2022 Orders Only [facility] [address] [place] [address] [phone] Yolanda Rose DO 230 [place], [place] [phone] Social History Tobacco Use Types Packs/Day Years [...] Department Care Team (Late Contact Info) Description 11/20/2024 10:15 AM EDT Office Visit [facility] [address] [place] [address] [phone] Virginie Monet MD [address] [place] [address] [phone] 12/09/2024 9:45 AM EDT Office Visit [address] [phone] 12/18/2024 9:00 AM EDT Office Visit [address] [address] Virginie Monet MD [address] [place], [place] [phone] documented as of this encounter Visit Diagnoses Not on filedocumented in this encounter Care Teams Check Writer Relationship Specialty Start Date End Date Virginie Monet MD [address] [place] [address] PCP - General Family Medicine 07/30/20 documented as of this encounter
--- OUTSIDE RECORDS SUMMARY | 2024-11-13 06:55 | XMS_ITS | Encounter Summary ---
Author Organization [employer] Address [address] [facility] [address] 7[address] [place] [address] Care Team Providers Care Optical Scientist Name Role Phone Virginie Monet MD Primary Care Provide r Reason for Visit * Reason Comments Med Refill Encounter Details Date Type Department Care Team ([facility] st Contact Info) Description 01/03/2024 Refill [facility] 230 [place], [place] [phone] Virginie Monet MD 230 [place], [place] [phone] Anxiety Social History Tobacco Use Types Packs/Day [...] Description 11/20/2024 10:15 AM EDT Office Visit [address] [address] Virginie Monet MD [address] [place] [address] 12/09/2024 9:45 AM EDT Office Visit [address] [address] 12/18/2024 9:00 AM EDT Office Visit [address] [address] Virginie Monet MD [address] [place] [address] documented as of this encounter Visit Diagnoses Diagnosis Anxiety Anxiety state, unspecified documented in this encounter Additional Health Concerns Assessment Noted Time PHQ-9 Depression Total Score: 0 05/29/20 23 2:13 PM EST documented as of this encounter Care Teams Optical Scientist Relationship Specialty Start Date End Date Virginie Monet MD [address] [place] [address] [place] [address] PCP - General Family Medicine 07/30/20 documented as of this encounter
--- OUTSIDE RECORDS SUMMARY | 2024-11-13 06:55 | XMS_ITS | Encounter Summary ---
Author Organization [employer] Address [address] [facility] [address] 7[address] [place] [address] Care Team Providers Care Fur Dry Cleaner Name Role Phone Virginie Monet MD Primary Care Provide r Encounter Details Date Type Department Care Team ([facility] Contact Info) Description 05/19/2024 Orders Only [facility] 230 [place], [place] [phone] Virginie Monet MD 230 [place], [place] [phone] Social History Tobacco Use Types Packs/Day Years [...] Description 11/20/2024 10:15 AM EDT Office Visit [facility] [address] [place] [address] Virginie Monet MD [address] [place] [address] 12/09/2024 9:45 AM EDT Office Visit [address] [address] 12/18/2024 9:00 AM EDT Office Visit [address] [address] Virginie Monet MD [address] [place] [address] documented as of this encounter Visit Diagnoses Not on filedocumented in this encounter Additional Health Concerns Assessment Noted Time PHQ-9 Depression Total Score: 15 024 11:32 AM EDT documented as of this encounter Care Teams Fur Dry Cleaner Relationship Specialty Start Date End Date Virginie Monet MD [address] [place] [address] PCP - General Family Medicine 07/30/20 documented as of this encounter
--- OUTSIDE RECORDS SUMMARY | 2025-01-13 09:00 | XMS_ITS | Data Portability ---
Author Organization [facility], [place] [employer] [facility] Address [address] [place] [address] Care Team Providers Care Continuum Of Care Manager Name Role Phone HIM CCA OTHER SHANKAR SON Primary Care Provider [phone] Assessment No assessment recorded. Plan of Treatment [...] Not Available Not Available No t Available [employer] Ultra Test strips USE DIRECTED TWICE DAILY [...] active Not Available Not Available Not Available [employer] Opinion COVID-19 Rapid At-Home kit TEST DIRECTED TODAY [...] SNOMED-CT Code Diagnosis ICD10 Code Diagnosis Note [id number] Bryce Rivera MD Main - [facility] [address] [place] [phone] 03/04/2024 20:21:06 03/04/2024 22:03:09 Headache [id number] R51.9 Reports a history of migraines, but [...] Recorded Advance Directives Directive None Recorded Payers Insurance Date Sequence Insurance Name Policy Number Policy Wills Covered Member ID Wills Member ID Guarantor Name 03/04/2024 1 [facility] - DOS ON OR AFTER 2022 - DUAL ELIGIBLE - [facility] OPTIONS AND ONE CARE (MEDICARE REPLACEMENT/ADV ANTAGE - HMO) Shankar Martins [id number] Shankar Martins Notes Date Note Type Note Provider Name and Address Organization Details Recorded Time 03/04/2024 text/html [facility] Nurse Triage Notes (Racheal Pabon): Reason For Request: Pt reporting severe headache for 3 weeks>suffers from migraines and has taken medication with no improvements>162/90 BP Chief Complaints: Headache PMH: Hypertension, Other Allergies: No Known Pain Assessment: Level 10 out of 10 Comments: [employer] verified the member's name//address and phone number. [...] ................... ................... ................... ................... ................... ........ Care Trainer Note From Ho Joe: Dispatched to the [...] in all extremities -dcapbtls -stroke scale findings. [facility] contacted and noted the patient should be evaluated at the emergency room due to symptoms and the headache being different than her normal migraines. Pt. agreed to transport and agreed to go by ambulance. 911 contacted [facility] on scene and [facility] took patient care. all times are approx.report completed by sarah joe ................... ................... ................... ................... ................... ................... ................... ........ Disposition: Fulfilled Bryce Rivera MD [address] [place] [address],[address], [place], [address], [employer] [facility] 03/04/2024 21:30:34 OBGyn Episode No OBEpisode recorded.
--- OUTSIDE RECORDS SUMMARY | 2025-01-13 09:00 | XMS_ITS | Encounter Summary ---
Author Organization [employer] Address [address] [place] [address] Care Team Providers Care Edge Inker Uppers Name Role Phone Virginie Monet MD Primary Care Provide r Encounter Details Date Type Department Care Team ([facility] st Contact Info) Description 10/12/2023 Orders Only [facility] [address] [place], [place] [phone] Virginie Monet MD [address] [place] [address] Social History Tobacco Use Types Packs/Day Years [...] Care Team (Late st Contact Info) Description 02/03/2025 9:45 AM EDT Office Visit [facility] [address] [place] [id number] 03/26/2025 9:00 AM EDT Office Visit [address] [address] Virginie Monet MD [address] [place] [phone] documented as of this encounter Visit Diagnoses Not on filedocumented in this encounter Additional Health Concerns Assessment Noted Time PHQ-9 Depression Total Score: 0 05/29/20 23 2:13 PM EST documented as of this encounter Care Teams Edge Inker Uppers Relationship Specialty Start Date End Date Virginie Monet MD [address] [place] [id number] PCP - General Family Medicine 07/30/20 documented as of this encounter
--- OUTSIDE RECORDS SUMMARY | 2025-01-13 09:01 | XMS_ITS | Clinical Summary ---
Author Organization [facility] Address [address] [place] [address] Care Team Providers Care Herbicide Sprayer Name Role Phone Unavailable Primary Care Provider [...]
== END 2025-01-13 08:48 | disposition home or self-care (01) ==
LOC: CF 08:47
PROVIDERS: PCP Internal Medicine; Visit Provider Hospitalist
DX: G47.33 Obstructive sleep apnea (adult) (pediatric) (principal); I27.20 Pulmonary hypertension, unspecified; J44.9 Chronic obstructive pulmonary disease, unspecified; F17.200 Nicotine dependence, unspecified, uncomplicated; R91.8 Other nonspecific abnormal finding of lung field; R06.09 Other forms of dyspnea
CPT/HCPCS: 99212

== ENCOUNTER 2025-04-09 08:44 | Outpatient (AMB) | payer OTHER, SELFPAY ==
--- OUTSIDE RECORDS SUMMARY | 2025-04-07 09:45 | XMS_ITS | Encounter Summary ---
Author Organization [employer] Address [address] [place] [address] Care Team Providers Care Flat Surfacer Jewel Name Role Phone Virginie Monet MD Primary Care Provide r Encounter Details Date Type Department Care Team ([facility] st Contact Info) Description 04/07/2025 9:45 AM EDT Office Visit [facility] [address] [place] [address] Racheal Flynn FNP [address] [place] [address] Fibromyalgia (Primary Dx); Long-term current use of [...] Answer Date Recorded Patient Health Questionnaire-9 Score 11 03/26/2025 Patient Health Questionnaire-9 Score 11 03/26/2025 Last PHQ-9: Questionnaire Data Not on file 0 03/26/2025 Housing Stability Answer Date Recorded What is your housing situation today? I have kamini eason 03/17/[address] you li ve. Do you have problems with any of the following? None of the above 03/17/2025 Food Insecurity Answer Date Recorded Within the past 12 months, y ou worried that your food would run out before you got money to buy more: Never True 03/17/2025 Within the past 12 months,th e food you bought just didn't last and you didn't have enough money to get more: Never True 08/2024 Transportation Answer Date Recorded In the past 12 months, has l ack of transportation kept you from medical appts, meetings, work or from getting things needed for daily living? No 03/17/2025 Utilities Answer Date Recorded In the past 12 months, has t he [email or web address], gas, oil or water company threatened to shut off services in your home? No 03/17/2025 Depression Answer Date Recorded Patient Health Questionnaire-2 Score 4 03/26/2025 Internet Access Answer Date Recorded Internet Access Q1 Yes 03/17/2025 Internet Access Q2 Not on file 03/17/2025 Comments No Sex and Gender Information Value Date Recorded Sex Assigned at Female 05/15/2022 10:18 AM EDT Legal Sex Female 10:18 AM EDT Gender Identity Female 05/15/2022 10:18 AM EDT Sexual Orientation Choose not to disclose 2021 10:18 AM EDT documented as of this encounter Progress Notes * Racheal Flynn, WELCOME HOSTESS - 04/07/2025 9:45 AM EDT Subjective: Virginie Martins is a 59 y.o. female w/ PMH hypothyroidism, anxiety asthma, depression, HTN, fibromyalgia, chronic low back pain, DM2, GERD, IBS who presents to the office for - Chronic Pain Clinic Group visits. Initial Group visit: 09/11/23 Group Topic: Movement Presenter: Rebecca Napoles RN - Today, Virginie reports that two of her nieces are staying with her. She has lost 40-50 lbs over thepast year now that she has been using the ozempic for her diabetes. She continues with adequate calorie and protein intake. Has been experiencing less joint pains and knee pains with the weight loss. Chronic Pain History: Associated Diagnosis: Fibromyalgia, OA Current pharm tx: oxycodone 5mg [id number] Medication: States taking medication as prescribed. Related Specialists: Ortho Functional Goals: improvement of left knee pain and mobility Imaging: MRI left knee Jul 2024 IMPRESSION: Posterior horn medial meniscal tear with joint effusion. MRI Right knee October 2024: IMPRESSION: 1. There is a 6 x 4 mm focus of full-thickness cartilage loss with underlying subchondral bone plate edema in the inferolateral aspect of the femoral trochlea. 2. There is increased signal in the suprapatellar fat pad suggestive of fat pad impingement syndrome. 3. The menisci and major ligamentous structures are intact. 4. Minimal medial and lateral compartment osteoarthritis. Review of Systems Constitutional: Negative. Respiratory: Negative. Cardiovascular: Negative. Musculoskeletal: Positive for arthralgias Skin: Negative. Physical Exam Constitutional: Appearance: Normal appearance. Pulmonary: Effort: Pulmonary effort is normal. Neurological: Mental Status: She is alert and oriented to person, place, and time. Psychiatric: Mood and Affect: Mood normal. Behavior: Behavior normal. Problem List Items Addressed This Visit Mental Health Long-term current use of opiate analgesic Overview Medication: oxycodone 5mg Q8H PRN Indication: fibromyalgia Last FURNITURE DESIGNER Agreement: 12/09/24 Tier II (FURNITURE DESIGNER visits every 3 months) - last eval 09/16/24 by PCP Current Assessment & Plan Timeline: - 09/09/24: Group visit, utox/pill count as expected - 12/09/24: Group visit, utox/pill count as expected - 02/03/25: Group visit, utox/pill count as expected - 04/07/25: Group visit, utox/pill count as expected Relevant Orders POCT AIMEE-14 Urine Drug Screen (Completed) Musculoskeletal and Injuries Fibromyalgia - Primary Current Assessment & Plan - Pt attended and participated in group model of care - urine tox and pill count as expected - continue to explore and use non-pharmacological modalities for chronic pain treatment Follow up: 1-3 months for Group Chronic Pain Clinic. Follow up as scheduled with PCP, sooner as needed * Benita Mahmood RN - 04/07/2025 9:45 AM EDT FURNITURE DESIGNER outsoles channel opener: PDMP reviewed today. Last fill date: 03/20/2025 Oxycodone 5mg count was 36, anticipated 29 to be remaining. UTOX completed. Positive for OXY & TCA, Negative for AMP, BAR, BUP, BZO, CLARI, FTY, MDMA, MET, MOP, MTD, PCP, THC. UTOX as expected. documented in this encounter Miscellaneous Notes * Assessment & Plan Note - DESTINY Banegas - 04/07/2025 1:27 PM EDTAssociated Problem(s): Long-term current use of opiate analgesic Timeline: - 09/09/24: Group visit, utox/pill count as expected - 12/09/24: Group visit, utox/pill count as expected - 02/03/25: Group visit, utox/pill count as expected - 04/07/25: Group visit, utox/pill count as expected * Assessment & Plan Note - DESTINY Banegas - 04/07/2025 1:27 PM EDTAssociated Problem(s): Fibromyalgia - Pt attended and participated in group model of care - urine tox and pill count as expected - continue to explore and use non-pharmacological modalities for chronic pain treatment documented in this encounter Plan of Treatment Upcoming Encounters Date Type Department Care Team (Late st Contact Info) Description 06/09/2025 9:45 AM EST Office Visit [address] [id number] documented as of this encounter Procedures Procedure Name Priority Date/Time Associated Diagnosis Comments POCT AIMEE-14 URINE DRUG SCREEN Routine 04/07/2025 9:59 AM EDT Long-term current use of opiate analgesic documented in this encounter Results * POCT AIMEE-14 Urine Drug Screen (04/07/2025 9:59 AM EDT) THC Negative Negative Cocaine Screen, Urine Negative Negative Opiate Screen, Urine Negative Negative Methamphetamine Screen Urine Negative Negative Amphetamine Screen, Urine Negative Negative Benzodiazepines Screen, Urine Negative Negative Barbiturate Screen, Urine Negative Negative Methadone Screen, Urine Negative Negative Buprenophine Screen, Urine Negative Negative TCA, Urine Positive Negative MDMA Urine Negative Negative ng/mL Oxycodone Screen, Urine Positive Negative Phencyclidine (PCP), Urine Negative Negative Propoxyphene, Urine Negative Negative Fentanyl, Urine Negative Negative Urine Urine specimen obtained by clean catch procedure / Unknown 04/07/2025 9:59 AM EDT Benita Wakefield RN - 04/07/2025 9:59 AM EDT UTOX cup Lot#[id number] Exp. 04/21/26 Internal Pass Control Racheal Flynn WELCOME HOSTESS POINT OF CARE TEST ENTER/EDIT ORDERABLES Final Result documented in this encounter Visit Diagnoses Diagnosis Fibromyalgia- Primary Unspecified myalgia and myositis Long-term current use of opiate analgesic Encounter for long-term (current) use of other medications documented in this encounter Additional Health Concerns Assessment Noted Time PHQ-9 Depression Total Score: 11 025 9:05 AM EDT documented as of this encounter Care Teams Flat Surfacer Jewel Relationship Specialty Start Date End Date Virginie Monet MD [address] [place] [address] PCP - General Family Medicine 07/30/20 documented as of this encounter
[2025-04-09 09:08] VITALS: BP 134/78; PULSE 99; RESP 16; O2SAT 97; BMI 31.0
--- NOTE | 2025-04-09 09:08 | MHC.OFFVIS ---
Vital Signs 04/09/25 09:08 Height 5 ft 7 in Weight 198 lb BMI 31.0 BP 134/78 Blood Pressure Location Rt brachial Position Sitting Respiration 16 Pulse 99 Pulse Oximetry (%) 97 Intake Visit Reasons: F/U 6m RLS Allergies adhesive tape Allergy (Severe, Verified 04/09/25 09:08) BLISTERS Tetanus Vaccines and Toxoid (TETANUS VACCINES & TOXOID) Allergy (Intermediate, Verified 04/09/25 09:08) SWELLING, REDNESS surgical tape Allergy (Severe, Uncoded 04/09/25 09:08) hives/boils HPI Comments Details: Virginie is a 59-year-old female patient with a past medical history of bipolar disorder, kidney stone x1, asthma, PUD, BOY on CPAP, COPD, alcohol use being seen in the Neurology Clinic for tremor, RLS, and migraine. She was last seen on 10/09/2024 by Claudia DAVID. She was well-maintained on ropinirole 3 mg once daily for restless leg, sumatriptan 20 mg nasal solution for migraine abortive therapy, and primidone 50 mg twice daily for tremor. She is here today for a follow-up visit. She tells me that her tremors began over a year ago and have been progressively worsening. There is a family history of tremors, as the patient's mother also experienced them, primarily in her hands. The tremors have started to affect the patient's daily activities, including eating, drinking, and grooming, and have spread to her stomach and legs. The patient was prescribed Primidone, but she discontinued it due to lethargy and lack of efficacy in controlling the tremors. The patient reports worsening restless leg syndrome, which significantly affects her sleep, allowing only four to five hours of rest when the symptoms are not active. She has not yet tried magnesium, which was suggested as a potential remedy. She is taking her ropinerole 3mg daily as prescribed which has been beneficial on most days. The patient's migraines have decreased in frequency recently, with no episodes in the past couple of months. Previously, she experienced four to five migraines per month. Sumatriptan is effective in alleviating her migraine symptoms, which include light and sound sensitivity, nausea, and dizziness within one hour of use. Migraines can last several days if she does not treat with the sumatriptan. The patient has a history of bipolar disorder and is currently on Abilify, which she reports has been effective in stabilizing her mood. She has not seen a particular increase in her tremor after starting the Abilify. Prior medication trials: Primidone 50mg BID- Somnolence/lethargy. She is no longer taking this Propranolol- Believes that she has tried in the past but with history of asthma and COPD would not be good choice. [facility] Medical History (Updated 04/09/25 @ 09:35 by Andreea Anaya CNP) Migraine without aura BOY on CPAP RLS (restless legs syndrome) Coronary artery disease Nicotine dependence, cigarettes, uncomplicated Pulmonary hypertension Dyspnea Vitamin D deficiency Mixed irritable bowel syndrome Michael's thyroiditis Fibromyalgia Type 2 diabetes mellitus Obesity (BMI 30-39.9) Hypothyroidism BOY (obstructive sleep apnea) Hypertension Pulmonary nodules Asthma-COPD overlap syndrome Surgical History (Updated 11/14/24 @ 09:40 by Kait Beckwith PA-C) History of colon resection History of cholecystectomy History of colonoscopy History of esophagogastroduodenoscopy (EGD) History of lithotripsy History of surgery on right wrist History of excision of mass (09/28/21) History of elbow surgery Status post tendon repair Status post trigger finger release H/O hand surgery H/O excision of ganglion cyst H/O arthroscopy of right knee Family History Father Myocardial infarction Hypertension Diabetes CVD (cardiovascular disease) Mother Restless leg syndrome Diabetes Paternal Aunt Breast cancer Uterine cancer Social History Are you a primary resident care director to a significant other at home: No Do you presently have visiting nurse or other home services: Yes (HABILITATIVE INTERVENTIONIST 3 x week, 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 or older and lives alone: No Alcohol intake: former Patient Tobacco Use Status: Current everyday Tobacco user Tobacco use type: Cigarette Cigarettes Per Day: 6 Years Smoked: (onset 18yo, 1/2-1ppd x 41yrs, now 1/4ppd - 30pyh) Review of Systems Const All systems reviewed & are unremarkable except as noted in HPI and below Physical Exam Vital Signs: Last Vital Signs Pulse 99 04/09/25 09:08 Resp 16 04/09/25 09:08 BP 134/78 04/09/25 09:08 Pulse Ox 97 04/09/25 09:08 BMI result Body Mass Index 31.0 Const General: cooperative, healthy appearing, comfortable and no acute distress Nutritional Appearance: well nourished Orientation/consciousness: patient oriented x3 Limitations: no limitations HEENT Head: Yes normal to inspection and Yes normocephalic Eyes General: appearance normal, both eyes and all related structures Visual Dorantes: normal visual dorantes by confrontation Alignment and Position: alignment normal Periorbital: periorbital findings normal Eyelids: Yes eyelids normal Conjunctivae: conjunctivae normal Sclerae: sclerae normal Neuro General: patient oriented x3, tone normal and deep tendon reflexes 2+ bilaterally Cranial nerves: Yes CN's II-XII intact bilaterally and Yes Facial sensation intact/muscles of mastication intact Cognition (Neuro): normal cognition Gait exam (Neuro): Normal gait present Motor exam (neuro): 5/5 motor strength present throughout and Tremors during motor activity present (Present with both activity and rest but improves/resolves w distraction) bilateral upper extremity Sensory Exam: double simultaneous stimulation for sensation normal Romberg Test: Negative Pupils: Normal pupillary reactivity/response: bilateral Psych Appearance: grossly normal Mental Status: mental status grossly normal Speech and movement: Normal speech and movement present and Clear speech present Affect: normal affect Attitude: cooperative Thought process: Normal thought process present Thought content: Normal thought content present Insight: Good insight present (Psych) Judgement: Good judgement present (Psych) Assessment & Plan Assessment & Plan (1) Tremor of both hands: Code(s): R25.1 - Tremor, unspecified Category: Medical Plan: . (2) Migraine without aura and without status migrainosus, not intractable: Code(s): G43.009 - Migraine without aura, not intractable, without status migrainosus Category: Medical Plan: . Plan Virginie is a 59-year-old female presenting with tremor, restless leg syndrome, and migraine. Overall, her RLS symptoms have improved with ropinirole though some days can be worse than others. Migraines have been improving over the course of the last several months. She has good response with her sumatriptan. Her tremor however has gotten slightly worse with difficulty now performing day-to-day tasks. Her exam however was noteworthy for a tremor to her bilateral upper extremities that was present both with rest and activity. The tremor did reduced significantly/resolve with distraction. She does however report a family history of tremor. Tremor possibly ET, vs. Physiologic or functional. She also is on Abilify which can sometimes produce this side effect. She does however feel that the primidone was causing significant somnolence and she would like to try a new option. I will start her on low-dose topiramate 25 mg twice daily (starting with the nighttime dose for a couple of weeks) as he how she does with this. I did significant education in that topiramate can increase her risk for further kidney stones. She has only had 1 in the past. She does note she maintains good hydration and she was encouraged to continue this practice. There is also a chance topiramate can affect her moods. I also did ask her to notify me immediately should she have any mood changes on the topiramate. -start low-dose topiramate (25 mg at bedtime for a couple of weeks and then increase to 25 mg twice daily) -start magnesium supplementation 400 mg at bedtime for RLS adjunctive therapy -maintain good hydration -continue sumatriptan as needed for abortive migraine therapy -follow-up in 2 months or sooner if needed Coding Level of Care Code Est Pt Level 4 (21002) Diagnoses Tremor of both hands R25.1 Migraine without aura and without status migrainosus, not intractable G43.009
--- OUTSIDE RECORDS SUMMARY | 2025-04-09 09:19 | XMS_ITS | Encounter Summary ---
Author Organization [employer] Address [address] [place] [address] Care Team Providers Care Senior Salesforce Developer Name Role Phone Virginie Monet MD Primary Care Provide r Reason for Visit * Reason Onset Date Comments Med Refill 06/04/2024 Encounter Details Date Type Department Care Team ([facility] Contact Info) Description 06/04/2024 Telephone [facility] [address] [place], [place] [phone] Virginie Monet MD [address] [place] [address] Med Refill Social History Tobacco Use Types [...] immediate release tablet To be sent to: [id number] - [place], [place] - [address] [facility] documented in this encounter Plan of Treatment Upcoming Encounters Date Type Department Care Team (Late st Contact Info) Description 06/09/2025 9:45 AM EST Office Visit [facility] [address] [place] [address] documented as of this encounter Visit Diagnoses Not on filedocumented in this encounter Additional Health Concerns Assessment Noted Time PHQ-9 Depression Total Score: 15 024 11:32 AM EDT documented as of this encounter Care Teams Senior Salesforce Developer Relationship Specialty Start Date End Date Virginie Monet MD [address] [place] [address] PCP - General Family Medicine 07/30/20 documented as of this encounter
--- OUTSIDE RECORDS SUMMARY | 2025-04-09 09:19 | XMS_ITS | Encounter Summary ---
Author Organization [employer] Address [address] [facility] [address] [place] [address] Care Team Providers Care Manager Environmental Health And Safety Name Role Phone Virginie Monet MD Primary Care Provide r Reason for Visit * Reason Onset Date Comments Nurse Triage 12/14/2023 Encounter Details Date Type Department Care Team ([facility] Contact Info) Description 12/14/2023 Telephone [facility] [address] [place], [place] [phone] Virginie Monet MD [address] [place] [address] Nurse Triage Social History Tobacco Use Types [...] immediate release tablet To be sent to: [facility] documented in this encounter Plan of Treatment Upcoming Encounters Date Type Department Care Team (Late st Contact Info) Description 06/09/2025 9:45 AM EST Office Visit [facility] [address] [place] [address] documented as of this encounter Visit Diagnoses Diagnosis Chronic bilateral low back pain without sciatica documented in this encounter Additional Health Concerns Assessment Noted Time PHQ-9 Depression Total Score: 0 05/29/20 23 2:13 PM EST documented as of this encounter Care Teams Manager Environmental Health And Safety Relationship Specialty Start Date End Date Virginie Monet MD [address] [place] [address] PCP - General Family Medicine 07/30/20 documented as of this encounter
--- OUTSIDE RECORDS SUMMARY | 2025-04-09 09:19 | XMS_ITS | Encounter Summary ---
Author Organization [employer] Address [address] [facility] [address] [place] [address] Care Team Providers Care Jar Capper Name Role Phone Virginie Monet MD Primary Care Provide r Reason for Visit * Reason Onset Date Comments Referral 10/02/2022 Encounter Details Date Type Department Care Team ([facility] st Contact Info) Description 10/02/2022 Telephone [facility] [address] [place], [place] [phone] Virginie Monet MD [address] [place] [address] Referral Social History Tobacco Use Types Packs/Day [...] 2:04 PM EDT Tc from Andreea Waller health care specialist requesting a referral for occupational therapy evaluation for pt to be able to get a shower chair and electric lift chair . Please call to clarify at phone # [phone]. documented in this encounter Plan of Treatment Upcoming Encounters Date Type Department Care Team (Late st Contact Info) Description 06/09/2025 9:45 AM EST Office Visit [facility] [address] [place] [address] documented as of this encounter Visit Diagnoses Not on filedocumented in this encounter Care Teams Jar Capper Relationship Specialty Start Date End Date Virginie Monet MD [address] [place] [address] PCP - General Family Medicine 07/30/20 documented as of this encounter
--- OUTSIDE RECORDS SUMMARY | 2025-04-09 09:19 | XMS_ITS | Encounter Summary ---
Author Organization [employer] Address [address] [facility] [address] [place] [address] Care Team Providers Care Clinical Statistics Manager Name Role Phone Virginie Monet MD Primary Care Provide r Reason for Visit * Reason Onset Date Comments Med Refill 02/05/2023 Encounter Details Date Type Department Care Team ([facility] Contact Info) Description 02/05/2023 Telephone [facility] [address] [place], [place] [phone] Virginie Monet MD [address] [place] [address] Med Refill Social History Tobacco Use Types [...] Description 06/09/2025 9:45 AM EST Office Visit [facility] [address] [place] [address] documented as of this encounter Visit Diagnoses Not on filedocumented in this encounter Additional Health Concerns Assessment Noted Time PHQ-9 Depression Total Score: 0 11/15/19 23 9:09 AM EDT documented as of this encounter Care Teams Clinical Statistics Manager Relationship Specialty Start Date End Date Virginie Monet MD [address] [place] [address] PCP - General Family Medicine 07/30/20 documented as of this encounter
--- OUTSIDE RECORDS SUMMARY | 2025-04-09 09:19 | XMS_ITS | Encounter Summary ---
Author Organization [employer] Address [address] [facility] [address] [place] [address] Care Team Providers Care Grain Shoveler Name Role Phone Virginie Monet MD Primary Care Provide r Encounter Details Date Type Department Care Team (Late Contact Info) Description 08/23/2022 Orders Only [facility] [address] [place] [phone] Yolanda Rose DO [address] [place] [address] [phone] Social History Tobacco Use Types Packs/Day Years [...] Description 06/09/2025 9:45 AM EST Office Visit [facility] [address] [place] [phone] documented as of this encounter Visit Diagnoses Not on filedocumented in this encounter Care Teams Grain Shoveler Relationship Specialty Start Date End Date Virginie Monet MD [address] [place] [address] [phone] PCP - General Family Medicine 07/30/20 documented as of this encounter
--- OUTSIDE RECORDS SUMMARY | 2025-04-09 09:19 | XMS_ITS | Clinical Summary ---
Author Organization [employer] Address [address] [facility] [address] [place] [address] Care Team Providers Care Biofuels Technology Development Manager Name Role Phone Virginie Monet MD Primary Care Provide r Allergies Active Allergy Reactions Criticality Noted Date Comments Avocado Other 12/29/2022 Increased acid production/sensation in stomach to throat. Same with red grapes and red onion Banana 11/14/2022 Tetanus Immune Globulin Swelling 09/16/2020 Tetanus Toxoid-Containing Vaccines High 05/12/2024 Other Reaction(s): SWELLING, REDNESS Wound [...] spray into affected nostril(s) See administration instructions. [place] 1 spray by intranasal route once; if headache returns, dose may be repeated once and after 2 hours, do not exceed 40 mg per day. Active Umeclidinium-Cole anterol (Anoro Ellipta) 62.5-25 MCG/ACT aerosol powder Inhale 1 puff in the morning. Inhale 1 puff by inhalation route every day at the same time each day. Active Continuous Blood Gluc Sensor (FreeStyle Shane 2 Sensor) miscIndications: Type 2 diabetes mellitus without complication, without long-term current use of insulin ([facility]) Use 1 sensor every 14 days per package directions 2 each 2022 Active Continuous Blood Gluc Land Measurer (FreeStyle Shane 2 Lucas) deviceIndication s:Type 2 diabetes mellitus without complication, without long-term current use of insulin ([facility]) Use reader for CGM per package [...] 2 2022 Active Continuous Blood Gluc Sensor (Goods Platformcom G7 Sensor) miscIndications: Type 2 diabetes mellitus [...] AND AT BEDTIME DIRECTED 2023 Active Lancets (OneTouch Delica Plus [id number]) miscIndications: Type 2 diabetes mellitus with hyperglycemia, without long-term current use of insulin ([facility]) USE DIRECTED TWICE DAILY 100 each 11 2023 Active OneTouch Ultra Test test stripIndications :Type 2 diabetes mellitus with hyperglycemia, without long-term current use of insulin (CMS/[facility]) USE DIRECTED TWICE DAILY 100 strip 11 2023 Active amitriptyline (Elavil) 75 MG tabletIndication s:Fibromyalgia TAKE 1 TABLET(75 MG) BY MOUTH AT BEDTIME 90 tablet 2023 Active polyethylene glycol, PEG, 3350 (Glycolax) [...] without long-term current use of insulin ([facility]) Check blood sugar before 1 meal ( breakfast or lunch) if sugar >250-299 administer 3 units, if 300-349, administer 6 units, if >350 administer 9 units and call office. 1 each 2023 Active pen needle 31G x 5 mm miscIndications: Type 2 diabetes mellitus with hyperglycemia, without long-term current use of insulin (CMS/[facility]) Use as instructed 100 each 12 05/16 Active metFORMIN (Glucophage) 500 MG tabletIndication s:Prediabetes TAKE 1 TABLET BY MOUTH TWICE DAILY WITH THE MORNING AND EVENING MEAL 180 tablet 1 2024 Active Continuous Glucose Land Measurer (FreeStyle Shane 3 Lucas) deviceIndication s:Type 2 diabetes mellitus with hyperglycemia, [...] CALL CLINIC 3 mL 1 2024 Active ibuprofen 800 MG tabletIndication s:Chronic bilateral low back pain without sciatica Take 1 tablet (800 mg) by mouth every 8 (eight) hours if needed for mild pain. 30 tablet 1 2024 Active omeprazole (PriLOSEC) [address] capsule TAKE 1 CAPSULE BY MOUTH IN THE MORNING AND AT BEDTIME 180 capsule 1 2024 Active ARIPiprazole (Abilify) 2 MG [...] BEFORE BREAKFAST 30 tablet 3 2024 Active semaglutide (Ozempic, 1 MG/DOSE,) 4 MG/3ML solution pen-injectorIndi cations:Type 2 diabetes mellitus with hyperglycemia, without long-term current use of insulin ([facility]) Inject 1 mg under the skin 1 (one) time per week. 1 each 2024 Active losartan-hydroCH LOROthiazide (Hyzaar) 50-12.5 MG tabletIndication s:Essential hypertension TAKE 1 TABLET BY MOUTH DAILY 90 tablet 1 2024 Active oxyCODONE (Roxicodone) 5 MG immediate release tabletIndication s:Chronic bilateral low back pain without sciatica Take 1 tablet (5 mg) by mouth every 8 (eight) hours if needed for severe pain for up to 28 days. 84 tablet 04/17 Active cyclobenzaprine (Flexeril) 10 MG tabletIndication s:Neck pain,Muscle spasm Take 1 tablet (10 mg) by mouth 3 times daily for 10 days. 30 tablet 2024 Active tiZANidine (Zanaflex) 6 MG capsule Take 1 capsule by mouth every 6 (six) hours. Take 1 capsule by oral route every 6-8 hours as needed not to exceed 3 doses in 24 hours. 03/26 Discontinued losartan-hydroCH LOROthiazide (Hyzaar) 50-12.5 MG tabletIndication s:Essential hypertension TAKE 1 TABLET BY MOUTH DAILY 30 tablet 2 03/17 Discontinued oxyCODONE (Roxicodone) 5 MG immediate release tabletIndication s:Chronic bilateral low back pain without sciatica Take 1 tablet (5 mg) by mouth every 8 (eight) hours if needed for severe pain for up to 28 days. Do not start before February 20, 2025. 84 tablet 03/20 Discontinued( Reorder (will not trigger notification to Pharmacy)) carbamide peroxide (Debrox) 6.5 % otic solutionIndicati ons:Bilateral impacted cerumen Administer 5-10 drops into affected ear(s) 2 times daily for 4 days. 30 mL 03/30 Active Problems Problem Noted Date Diagnosed Date Neck pain 03/26/2025 Assessment & Plan (03/26/2025 12:36 PM EDT): Apply heat on affected area She may take acetaminophen as needed I prescribed for her Flexeril 10 mg every 8 hours she is aware of side effects somnolence and that she cannot drive while taking this medication, also she cannot mix it with other medications like opioids or benzos Muscle spasm 03/26/2025 Assessment & Plan (03/26/2025 12:36 PM EDT): Apply heat on affected area She may take acetaminophen as needed I prescribed for her Flexeril 10 mg every 8 hours she is aware of side effects somnolence and that she cannot drive while taking this medication, also she cannot mix it with other medications like opioids or benzos Bilateral impacted cerumen 03/26/2025 Assessment & Plan (03/26/2025 12:35 PM EDT): I prescribed for patient Debrox and she may return in 5 days for ear lavage with nurse Tear of meniscus of left knee as current injury 09/16/2024 Assessment & Plan (09/16/2024 11:07 AM EST): Patient schedule for surgery on 09/22/24 Abnormal stress ECG with treadmill 05/27/2024 Acute hyperglycemia 05/27/2024 Bilateral foot pain 05/27/2024 Coronary artery disease 05/27/2024 RIVER (dyspnea on exertion) 05/27/2024 Long-term current use of opiate analgesic 2023 Overview (12/09/2024): Medication: oxycodone 5mg Q8H PRN Indication: fibromyalgia Last WAREHOUSE SHIFT SUPERVISOR Agreement: 12/09/24 Tier II (WAREHOUSE SHIFT SUPERVISOR visits every 3 months) - last eval 09/16/24 by PCP Assessment & Plan (04/07/2025 1:27 PM EDT): Timeline: - 09/09/24: Group visit, utox/pill count as expected - 12/09/24: Group visit, utox/pill count as expected - 02/03/25: Group visit, utox/pill count as expected - 04/07/25: Group visit, utox/pill count as expected Assessment & Plan (02/03/2025 1:21 PM EDT): Timeline: - 09/09/24: Group visit, utox/pill count as expected - 12/09/24: Group visit, utox/pill count as expected - 02/03/25: Group visit, utox/pill count as expected Assessment & Plan (12/09/2024 1:47 PM EDT): Timeline: - 09/09/24: Group visit, utox/pill count wnl - 12/09/24: Group visit, utox/pill count wnl Assessment & Plan (09/09/2024 2:42 PM EST): [...] up: 3 months Vitamin D deficiency 05/27/2024 Bursitis of left knee 05/16/2024 Assessment & [...] prn. Diet is high in sugar 05/16/2024 Anxiety 01/14/2024 Assessment & Plan (04/08/2024 10:43 AM EDT): Dr Radha Schulz (psychiatrist) phone [phone], is now taking over of her mental health and will take over her medications for mental health Diverticular disease 09/11/2023 Epigastric hernia 09/11/2023 Osteoarthritis 09/11/2023 Assessment & Plan (10/11/2023 11:50 AM EDT): C/w PRN meds Patient will go to medical records for guidance for new CLIENT EXPERIENCE SPECIALIST services Pain in both hands 08/27/2023 Assessment & Plan (10/11/2023 11:51 AM EDT): As above Class 2 severe obesity due t o excess calories with serious comorbidity in adult 05/29/2023 Assessment & Plan (05/16/2024 10:23 AM EDT): Discussed re weight reduction options including exercise, life style modifications, diet and referral to floor specialist. Recommended to decrease soda and sugary [...] Assessment & Plan (10/11/2023 11:52 AM EDT): CLIENT EXPERIENCE SPECIALIST services will be requested Assessment & Plan (11/14/2022 10:15 AM EDT): Please refer to HPI, I will re-start patient on oxycodone 5mg Q 8hrs I extensibly explain to her she will be under strict contract for this and I will not either increase dose or continue prescribing this medication under any circumstance if contract is broken Polycythemia 09/29/2022 Assessment & Plan (11/14/2022 10:12 AM EDT): CBC will be check for monitoring Assessment & Plan (09/29/2022 12:47 PM EDT): Most likely related to smoking Pt is quitting smoking Check CBC in 6 weeks Type 2 diabetes mellitus wit h hyperglycemia, without long-term current use of insulin 09/25/2022 Assessment & Plan (03/26/2025 12:37 PM EDT): Diabetes is: controlled - Lab Results Component Value Date HGBA1C 6.2 (A) 03/26/2025 HGBA1C 7.0 (A) 12/18/2024 HGBA1C 7.7 (A) 09/16/2024 - Lab Results Component Value Date MICROALBUR 16.0 04/22/2024 CREATININE 0.66 10/24/2024 -Changes: None - Diabetic eye exam: Up-to-date - Diabetic foot exam: Referral today - Continue lifestyle modifications - Continue current medications - Follow up: 3 months Assessment & Plan (12/18/2024 1:01 PM EDT): Diabetes is: not controlled but improved - Lab Results Component Value Date HGBA1C 7.0 (A) 12/18/2024 HGBA1C 7.7 (A) 09/16/2024 HGBA1C 7.4 (A) 04/08/2024 - Lab Results Component Value Date MICROALBUR 16.0 04/22/2024 CREATININE 0.66 10/24/2024 -Changes: I went up on ozempic to 2mg weekly, c/w rest of medications - Diabetic eye exam:up to date - Diabetic foot exam:pending - Continue lifestyle modifications - Follow up: 3 months Assessment & Plan (05/16/2024 5:12 PM EDT): [...] 06/17/2022 Essential hypertension 06/17/2022 Assessment & Plan (12/18/2024 12:59 PM EDT): I advised: - Aerobic exercise to reduce [...] consulting health care provider Assessment & Plan (09/16/2024 12:28 PM EST): [...] is taking medications as prescribed call back Gastroesophageal reflux disease 06/17/2022 Assessment & Plan [...] REUBEN (antinuclear antibody) 06/17/2022 Restless legs 06/17/2022 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 Assessment & Plan [...] A 07/02/2019 Fibromyalgia 05/02/2019 Assessment & Plan (04/07/2025 1:27 PM EDT): - Pt attended and participated in group model of care - urine tox and pill count as expected - continue to explore and use non-pharmacological modalities for chronic pain treatment Assessment & Plan (02/03/2025 1:21 PM EDT): - Pt attended and participated in group model of care - urine tox and pill count as expected - continue to explore and use non-pharmacological modalities for chronic pain treatment - Referral to massage therapy sent 12/09/24 Assessment & Plan (12/09/2024 1:46 PM EDT): - Pt attended and participated in group model of care - urine tox and pill count as expected - continue to explore and use non-pharmacological modalities for chronic pain treatment - Referral to massage therapy sent 12/09/24 Assessment & Plan (09/09/2024 2:40 PM EST): [...] pill count as expected Pt prefers individual WAREHOUSE SHIFT SUPERVISOR appointments, will schedule with Benita Mahmood RN [...] 12/26/2017 Mild intermittent asthma 12/26/2017 Obesity 12/26/2017 Assessment & Plan (03/26/2025 12:35 PM EDT): Patient is congratulated about weight loss extensive counseling about healthy diet and exercising today Peptic ulcer 12/26/2017 Resolved Problems Problem Noted Date Diagnosed Date Resolved Date Lymphedema 05/27/2024 12/18/2024 Mass of left lower extremity 05/27/2024 12/18/2024 Acute pain of left knee 05/16/2024 06/0 11/2024 Dizzy 05/16/2024 12/18/2024 Incisional hernia 09/11/2023 12/18/2024 Vaginal itching 11/14/2022 12/18/2024 Assessment & Plan (11/14/2022 10:20 AM EDT): odell yeast infection, patient on jardiance and with uncontrolled DM, I will prescribe trail of clotrimazole vaginal cream Foot pain 06/17/2022 12/18/2024 Sebaceous cyst 06/17/2022 12/18/2024 Skin tag 06/17/2022 12/18/2024 Prediabetes 01/04/2018 04/22/2024 Encounters * This document contains information received from the source organization and may not represent a complete record from that organization. Date Type Department Care Team Description 04/07/2025 9:45 AM EDT Office Visit [facility] [address] [place] [phone] Racheal Flynn FNP Fibromyalgia (Primary Dx); Long-term current use of opiate analgesic 04/07/2025 Travel 04/01/2025 9:30 AM EDT Clinical Support [facility] [address] [place] [address] Ximena Greenwood RN Bilateral impacted cerumen [H61.23] 04/01/2025 Travel 03/26/2025 9:00 AM EDT Office Visit [facility] [address] [place] [address] Virginie Monet MD Type 2 diabetes mellitus with hyperglycemia, without long-term current use of insulin ([facility]) (Primary Dx); Type 2 diabetes mellitus without complication, without long-term current use of insulin ([facility]); Neck pain; Muscle spasm; Bilateral impacted cerumen; Dietary counseling; Exercise counseling; Class 2 severe obesity due to excess calories with serious comorbidity and body mass index (BMI) of 36.0 to 36.9 in adult ([facility]) 03/26/2025 Travel 03/25/[address] [facility] [address] [place] [address] Virginie Monet MD Chart Prep 03/20/[address] [facility] [address] [place] [address] Virginie Monet MD Chronic bilateral low back pain without sciatica 03/17/2025 Patient Outreach [facility] [address] [place] [phone] Virginie Monet MD Pre-visit Planning (SDOH screening negative and tobacco screening negative) 03/15/[address] [facility] [address] [place], [place] [phone] Virginie Monet MD Essential hypertension 02/19/[address] [facility] [address] [place] [address] Virginie Monet MD Chronic bilateral low back pain without sciatica 02/19/[address] [facility] [address] [place] [address] Virginie Monet MD Depression, unspecified depression type 02/13/[address] [facility] [address] [place], [place] [phone] Virginie Monet MD Nurse Triage 02/11/2025 Orders Only [facility] [address] [place] [address] Virginie Monet MD Type 2 diabetes mellitus with hyperglycemia, without long-term current use of insulin ([facility]) (Primary Dx) 02/11/[address] [facility] [address] [place] [address] Virginie Monet MD Nurse Triage 02/07/[address] [facility] [address] [place] [address] Virginie Monet MD Michael's thyroiditis; Depression, unspecified depression type 02/03/2025 9:45 AM EDT Office Visit [facility] [address] [place] [address] Racheal Flynn FNP Fibromyalgia (Primary Dx); Long-term current use of opiate analgesic 02/03/2025 Travel 02/02/[address] [facility] [address] [place] [address] Virginie Monet MD Depression, unspecified depression type 01/21/[address] [facility] [address] [place] [address] Virginie Monet MD Chronic bilateral low back pain without sciatica 01/19/[address] [facility] [address] [place] [address] Dahiana Foreman MD Essential hypertension 01/16/[address] [facility] [address] [place] [address] Virginie Monet MD Depression, unspecified depression type from Last 3 Months Immunizations Immunization Administration Dates Next Due Influenza, IIV3, injectable [...] Sign Reading Time Taken Comments Blood Pressure 134/72 03/26/2025 9:03 AM EDT Pulse 80 03/26/2025 9:03 AM EDT Temperature 36.7 C (98 F) 03/26/2025 9:03 AM EDT Respiratory Rate 20 03/26/2025 9:03 AM EDT Oxygen Saturation 98% 09/16/2024 10:51 AM EST Inhaled Oxygen Concentration - - Weight 90.4 kg (199 lb 3.2 oz) 03/26/2025 9:03 A M EDT Height 170.2 cm (5' 7 ) 03/26/2025 9:03 AM EDT Body Mass Index 31.2 03/26/2025 9:03 AM EDT Plan of Treatment Upcoming Encounters Date Type Department Care Team (Late st Contact Info) Description 06/09/2025 9:45 AM EST Office Visit [facility] [address] [place] [phone] Health Maintenance Due Date Last Done Comments CT Colonography 1965 FIT DNA/Cologuard 1965 FIT 1965 FOBT 1965 Sigmoidoscopy 1965 Disability Screening 1965 Diabetes: Foot Exam 10/07/1975 Eye Exam 10/07/1975 DTaP/Tdap/Td Vaccines (1 - Tdap) 1984 Hepatitis A Vaccines (1 of 2 - Risk 2-dose series) 1984 Hepatitis B Vaccines (1 of 3 - 19+ 3-dose series) 1984 Zoster Vaccines (1 of 2) 10/07/2015 Pap Smear 02/27/2021 02/27/2018 Cervical Cancer Screening 02/27/2023 HPV/Cotest 02/27/2023 02/27/2018 COVID-19 Vaccine ( season) 2025 06/19/2022, 08/09/2021, 08/09/2021, Additional history exists Influenza Vaccine (#1) 2025 5, 03/06/2014, 04/09/2013, Additional history exists Diabetes: Urine Protein Screening 04/22/2025 04/22/2024, 12/28/2023, 08/27/2023, Additional history exists Lipid Panel 04/22/2025 04/22/2024, 02/02/2023 Depression Monitoring 09/23/2025 03/26/2025, 025 Diabetes: Hemoglobin A1C 09/23/2025 025, 12/18/2024, 09/16/2024, Additional history exists Tobacco Screening 12/18/2025 12/18/2024 Mammogram 01/02/2026 01/02/2025, 12/14, 01/01/2023, Additional history exists SDOH Screening 03/17/2026 03/17/2025 Alcohol/Substance Use Screening 03/26/2026 03/26/2025 Colonoscopy 01/31/2027 01/31/2017 Colorectal Cancer Screening 01/31/2027 [...] EDT Long-term current use of opiate analgesic NV REMOVAL IMPACTED CERUMEN IRRIGATION/LVG UNILAT Routine 04/01/2025 10:03 AM EDT Bilateral impacted cerumen [H61.23] POCT GLYCATED HEMOGLOBIN, TOTAL Routine 03/26/2025 9:08 AM EDT Type 2 diabetes mellitus without complication, without long-term current use of insulin (CMS/HCC) POCT GLUCOSE Routine 03/26/2025 9:04 AM EDT Type 2 diabetes mellitus without complication, without long-term current use of insulin (CMS/HCC) POCT AIMEE-14 URINE DRUG SCREEN Routine 02/03/2025 10:08 AM EDT Long-term current use of opiate analgesic BI MAMMOGRAM SCREENING TOMOSYNTHESIS BILATERAL Routine 01/02/2025 7:35 AM EDT HEPATITIS C VIRAL RNA, QUANTITATIVE, REAL-TIME [...] without long-term current use of insulin (CMS/HCC) ZZZ HISTORICAL HPV MRNA E6/E7 Routine 02/27/2018 3:34 PM EDT PAP SMEAR Routine 02/27/2018 12:00 AM EDT HM COLONOSCOPY Routine 01/31/2017 from Last 3 Months or Most Recently Relevant to Health Maintenance Results * POCT AIMEE-14 Urine Drug Screen (04/07/2025 9:59 AM EDT) Only the most recent of2 resultswithin the time period is included. THC Negative Negative Cocaine Screen, Urine Negative [...] - 04/07/2025 9:59 AM EDT UTOX cup Lot#[id number] Exp. 04/21/26 Internal Pass Control us Racheal Flynn SUPERVISOR [employer] POINT OF CARE TEST ENTER/EDIT ORDERABLES Final Result * NV REMOVAL IMPACTED CERUMEN IRRIGATION/LVG UNILAT (04/01/2025 10:03 AM EDT) Ximena Ureña RN - 04/01/2025 10:03 AM EDT Ximena Greenwood RN 04/02/2025 8:45 AM Ear Cerumen Removal Date/Time: 04/01/2025 10:03 AM Performed by: Ximena Greenwood RN Authorized by: Reuben Agarwal MD Consent: Consent obtained: Verbal Consent given by: Patient Risks, benefits, and alternatives were discussed: yes Risks discussed: Bleeding, infection, dizziness and TM perforation Alternatives discussed: Delayed treatment [place] protocol: Procedure explained and questions answered to patient or proxy's satisfaction: yes Relevant documents present and verified: no Test results available: no Imaging studies available: no Required blood products, implants, devices, and special equipment available: no Site/side marked: no Immediately prior to procedure, a time out was called: yes Patient identity confirmed: Verbally with patient Procedure details: Location: L ear and R ear Procedure type: irrigation Procedure outcomes: cerumen removed Post-procedure details: Inspection: Ear canal clear Hearing quality: Improved Procedure completion: Tolerated us Reuben Agarwal MD IN CLINIC/BEDSIDE ORDERA BLES Final Result * (ABNORMAL) POCT Hgb A1c (03/26/2025 9:08 AM EDT) Hemoglobin A1C 6.2(A) 4.0 - 5.7 % QC Media Lot # [id number] Lot# Expiration Date 42 Blood 03/26/2025 9:08 AM EDT Virginie Lopez MD POINT OF CARE TEST EN TER/EDIT ORDERABLES Final Result * POCT Glucose (03/26/2025 9:04 AM EDT) Glucose Blood, POC 160 60 - 200 mg/dL QC Media Lot # [id number] Lot# Expiration Date 72 Blood Capillary blood specimen / Unknown 03/26/2025 9:04 AM EDT Virginie Lopez MD POINT OF CARE TEST EN TER/EDIT ORDERABLES Final Result * BI Mammogram Screening Tomosynthesis Bilateral (01/02/2025 7:35 AM EDT) Anatomical Region Laterality Modality Breast Bilateral Mammography 01/02/2025 7:35 AM EDT Narrative 01/07/2025 3:10 PM EDT [facility] [address] [place] [address] Mammography Report Signed Patient: Virginie Martins MR#: [id number] [birth year] : 1965 Acct:[id number] Age/Sex: 59 / F ADM Date: 01/02/25 Loc: MAMMO Attending Dr: Virginie Lopez MD Ordering Physician: Virginie Monet MD Results: 1Negative Date of Service: 01/02/25 Follow Up: 1 Year From Orig inal Mammogram Procedure(s): MM tomosynthesis screening BI Accession Number(s): [id number] cc: Virginie Monet MD EXAMINATION: MM SCREENING DIGITAL BREAST TOMOSYNTHESIS, BILATERAL CLINICAL INFORMATION: Screening. Asymptomatic. COMPARISON: Mammography: Comparison is made with available priors TECHNIQUE: Digital breast mammography with tomosynthesis is performed in both the craniocaudal and mediolateral oblique views along with computer-aided detection (CAD). FINDINGS: The breasts are heterogeneously dense, which [...] target due date for their next mammogram. Electronically signed by: Nyla Yu DO 01/07/2025 03:07 PM EDT Dictated By: Nyla uY DO Signed By: <Electronically signed by Nyla Yu DO in OV> 01/07/25 1507 DD/ 0735 TD/TT: 01/02/25 0756 Mechanical Service Representative: Procedure Note Donotuseinterpreter, Image - [facility] [address] [place] [address] Mammography Report Signed Patient: Virginie Martins AMR#: [id number] 07 : 1965Acct:[id number] Age/Sex: 59 / FADM Date: 01/02/25 Loc: HO.MAMMO Attending Dr: Virginie Lopez MD Ordering Physician: Virginie Monet MDResults: 1Negative Date of Service: 01/02/25Follow Up: 1 Year From Orig inal Mammogram Procedure(s): MM tomosynthesis screening BI Accession Number(s): [id number] cc: Virginie Monet MD EXAMINATION: MM SCREENING DIGITAL BREAST TOMOSYNTHESIS, BILATERAL CLINICAL INFORMATION: Screening. Asymptomatic. COMPARISON: Mammography: Comparison is made with available priors TECHNIQUE: Digital breast mammography with tomosynthesis is performed in both the craniocaudal and mediolateral oblique views along with computer-aided detection (CAD). FINDINGS: The breasts are heterogeneously dense, which [...] target due date for their next mammogram. Electronically signed by: Nyla Yu DO 01/07/2025 03:07 PM EDT RP Dictated By: Nyla Yu DO Signed By: <Electronically signed by Nyla Yu DO in OV> 01/07/25 1507 DD/ 0735 TD/TT: 01/02/25 0756 Mechanical Service Representative: us Virginie Lopez MD IMG BI PROCEDURES Fin al Result * Lipid Panel with Reflex to Direct LDL (04/22/2024 9:30 AM EDT) Triglycerides 149 <150 mg/dL [facility] LABS Comment:Desirable Triglyceri de: less than 150 mg/dLBorderline High Triglyceride 150-199 mg/dLHigh Triglyceride: 200-499 mg/dLVery High Triglyceride: greater than or equal to 5OO mg/dL Cholesterol 154 <200 mg/dL [facility] Comment:Desirable Cholestero l: less than 200 mg/dLBorderline High Cholesterol: 200-239 mg/dLHigh Cholesterol: greater than 239 mg/dL LDL Cholesterol Calculated 79 <100 mg/dL [facility] Comment:Desirable LDL: less than 100 mg/dLNear Optimal/Above Optimal LDL: 110- 129 mg/dLBorderline High LDL: 130-159 mg/dLHigh LDL: 160-189 mg/dLVery High LDL: greater than or equal to 190 mg/dL HDL Cholesterol 46 >40 mg/dL [facility] Comment:Desirable HDL: great er than 40 mg/dL Note: This HDL assay may give artificially low results in patients with liver disease. Blood 04/22/2024 9:30 AM EDT 04/22/2024 11:35 AM EDT Virginie Lopez MD LAB BLOOD ORDERABLES Final Result Performing Organization Address [facility] [place] Phone Number [facility] [address] [place] [phone] * Hepatitis C Viral RNA, Quantitative, Real-Time PCR (04/22/2024 9:30 AM EDT) [facility] Hepatitis C Viral Load <15 NOT DETECTED NOT DETECTED IU/mL [facility] HCV Log PCR <1.18 NOT DETECTED NOT DETECTED Log IU/mL [facility] Comment:For additional infor matamanda, please refer tohttp://education.[employer]/faq/JON37p3(This link is being provided for informational/educational purposes only.)THIS TEST WAS PERFORMED AT:[employer] ([employer])[address] [place] [id number] PERRY MD Blood 04/22/2024 9:30 AM EDT 04/22/2024 11:35 AM EDT Virginie Lopez MD LAB BLOOD ORDERABLES Final Result Performing Organization Address [facility] [place] de Phone Number [facility] [address] [place] [phone] * Albumin, Random Urine W/Creatinine (04/22/2024 9:30 AM EDT) Pathologist [facility] Creatinine, Urine 193.55 mg/dL [facility] Microalbumin Urine 16.0 mg/L [facility] Microalbum Creatinine Ratio Ur 8.2 <30 ug/mg cr [facility] Comment:Albumin/Creatinine R atio Reference Ranges: Normal: < 30 ug/mg creatinine Microalbuminuria: 30 - 300 ug/mg creatinineClinical Albuminuria: > 300 ug/mg creatinine Urine (Urine, Random) 04/22/2024 9:30 AM EDT 04/22/2024 11:23 AM EDT Virginie Lopez MD LAB URINE ORDERABLES Final Result Performing Organization Address [place] Co de Phone Number [facility] [address] [place] [phone] * HIV-1/2 Antigen and Antibodies, Fourth Generation, with Reflexes (04/22/2024 9:30 AM EDT) Pathologist [facility] HIV AB/AG Nonreactive Nonreactive [facility] Comment:HIV-1 p24 Ag and/or HIV-1/HIV-2 Ab not detected.A test result that is nonreactive does not exclude thepossibility of exposure to or infection with HIV-1 and/orHIV-2. Nonreactive results in this assay for individualswith prior exposure to HIV-1 and/or HIV-2 may be due toantigen and antibody levels that are below the limit ofdetection of this assay.The [employer] Pinpoint HIV Ag/Ab Combo assay result andsupplemental assay results should be interpreted inconjunction with the patient's clinical presentation,history and other laboratory results. If the results areinconsistent with clinical evidence, additional testing issuggested to confirm the result. Blood Venous blood specimen / Unknown 04/22/2024 9:30 AM EDT 04/22/2024 11:35 AM EDT us Virginie Lopez MD LAB BLOOD ORDERABLES Final Result Performing Organization Address [place] Co de Phone Number [facility] [address] [place] [phone] * HPV mRNA E6/E7 (02/27/2018 3:34 PM EDT) Pathologist [facility] HPV mRNA E6/E7 Not Detected NOT DETECTED [facility] Comment: This test was performed using the APTIMA(R) HPV Assay ([employer] This assay detects E6/E7 viral messenger RNA (mRNA) from 14 high-risk HPV types (16,18,31,33,35,39,45,51, 52,56,58,59,66,68). For additional information please refer to: http://inSparq.Root Metrics/faq/JRA588b5 (This link is being provided for informational/ educational purposes only.) The analytical performance characteristics of this assay have been determined by [employer] [place], [place]. The modifications have not been cleared or approved by the FDA. This assay has been validated pursuant to the CLIA regulations and is used for clinical purposes. Test Performed by [facility], [employer] [place], [address] [place] [address] Adriel Barclay M.D., Ph.D., Director of Laboratories , CLIA [id number] Please note: Effective 03/27/2016, HPV testing will be performed using [employer]'s APTIMA test which targets mRNA. Detecting mRNA instead of DNA, as in older methods, offers significant improvements in specificity. 02/27/2018 3:34 PM EDT Ela Kern CNM HISTORICAL/NON ORDERABLE LABS Final Result [facility] [address] * Pap Smear (02/27/2018 12:00 AM EDT) Swab Ela Kern CNM LAB CYTOLOGY ORDERABLES F inal Result [facility] [address] [place] [phone] * Hm Colonoscopy (01/31/2017) Colonoscopy Normal Normal Narrative Ashley Recio - 01/31/2017 Repeat colonoscopy in 10 years . Results are in [facility] 01/31/2017 us Historical Provider HEALTH MAINTENANCE Final Result from Last 3 Months or Most Recently Relevant to Health Maintenance Insurance [facility] < 65 Care Teams Biofuels Technology Development Manager Relationship Specialty Start Date End Date Virginie Monet MD [address] [place] [phone] PCP - General Family Medicine 07/30/20
--- OUTSIDE RECORDS SUMMARY | 2025-04-09 09:19 | XMS_ITS | Encounter Summary ---
Author Organization [employer] Address [address] [facility] 7t [place] [address] Care Team Providers Care Business Analytics Faculty Member Name Role Phone Virginie Monet MD Primary Care Provide r Encounter Details Date Type Department Care Team (Latest Contact Info) Description 04/07/2025 Travel Social History Tobacco Use Types Packs/Day [...] Description 06/09/2025 9:45 AM EST Office Visit [facility] [address] [place] [address] documented as of this encounter Visit Diagnoses Not on filedocumented in this encounter Additional Health Concerns Assessment Noted Time PHQ-9 Depression Total Score: 11 025 9:05 AM EDT documented as of this encounter Care Teams Business Analytics Faculty Member Relationship Specialty Start Date End Date Virginie Monet MD [address] [place] [address] PCP - General Family Medicine 07/30/20 documented as of this encounter
--- OUTSIDE RECORDS SUMMARY | 2025-04-09 09:19 | XMS_ITS | Encounter Summary ---
Author Organization [employer] Address [address] [facility] 7t [place] [address] Care Team Providers Care Clay Roaster Name Role Phone Virginie Monet MD Primary Care Provide r Reason for Visit * Reason Comments Med Refill Encounter Details Date Type Department Care Team ([facility] st Contact Info) Description 01/22/2024 Refill [facility] [address] [place], [place] [phone] Virginie Monet MD [address] [place] [address] Anxiety Social History Tobacco Use Types Packs/Day [...] Description 06/09/2025 9:45 AM EST Office Visit [facility] [address] [place] [address] documented as of this encounter Visit Diagnoses Diagnosis Anxiety Anxiety state, unspecified documented in this encounter Additional Health Concerns Assessment Noted Time PHQ-9 Depression Total Score: 15 024 11:32 AM EDT documented as of this encounter Care Teams Clay Roaster Relationship Specialty Start Date End Date Virginie Monet MD [address] [place] [address] PCP - General Family Medicine 07/30/20 documented as of this encounter
--- OUTSIDE RECORDS SUMMARY | 2025-04-09 09:19 | XMS_ITS | Encounter Summary ---
Author Organization [facility] Address [address] [place] [address] Encounters * CPT with Medical [facility] at [employer] on 2025-02-13 Patient with persistent nausea no vomiting. On Ozempic. { reasonForRequest : nausea , patientReports : , clari es :[], chiefComplaints : Nausea / Vomiting , pmh : Hypertension, Anxiety Disorder, Asthma, Depression, Diabetes Mellitus Type 2, Gastroesophageal Reflux Disease (GERD) , allergies : Tetanus Vaccines And Toxoid, Banana, Adhesive tape , otherAllergies : , painAssessment : , visitOutcome&q uot;: , additionalComments : PMH reviewed } Sent to a call for a pt complaining of nausea. [facility] arrives on scene, pt is alert and oriented, airway is patent. Pt allergies verified: Tetanus, Banana, Adhesive Tape; Pt states she has been taking Ozempic for one year, and approx 1 month ago pt's PCP increased Ozempic dose from 1mg to 2mg. Pt takes Ozempic each Sunday. Pt complains of nausea x 2 weeks, headache x 1.5 wks, and dizziness briefly each morning x 2 weeks. Pt states nausea has gotten progressively worse. Pt denies vision changes, cp, vomiting, diarrhea, abd pain, fever, or loc. Pt states she contacted PCP this week who adjusted Ozempic dose back to 1 mg. Pt will take first adjusted dose this coming Sunday. Pt states she has beeneating little, but has been staying hydrated. Pt is requesting medication to help with nausea. Pt states she has had Zofran ODT in the past with good effect. (sitting) BP:157/81, P:76, RR:18, SpO2:97% RA, T:98.0; (standing) BP:168/82, P:86; Head: unremarkable; Lung sounds: clear bilaterally; Abdomen: soft, non-tender, no distention; Back: unremarkable; Extremities: unremarkable; Skin: pink, warm,dry; [facility] consulted and orders Zofran ODT 4mg. [facility] sends script to pt's pharmacy. 5 med rights verified; Zofran ODT 4mg administered. Pt advised to follow up with [facility] if needed. Red flags discussed. Pt has no further questions. EKG, POC_BLOODWORK, URINE_DIPSTICK [facility]25[facility]13
--- OUTSIDE RECORDS SUMMARY | 2025-04-09 09:19 | XMS_ITS | Clinical Summary ---
Author Organization [facility] Address [address] [place] [phone] Phone Care Team Providers Care Loader Name Role Phone Gurpreet Tsai MD Primary Care Provider + Allergies No known active allergies Medications ALPRAZOLAM (XANAX ORAL) Take by mouth. Active escitalopram oxalate (LEXAPRO) 20 MG tablet Take 20 mg by mouth daily. Active OMEPRAZOLE ORAL Take by mouth. Active ROPINIROLE HCL (ROPINIROLE ORAL) Take by mouth. Active Active Problems No known active problems Social History Tobacco Use Types Packs/Day Years Used Date Smoking Tobacco: Never Assessed Education Answer Date Recorded Are you interested in more education? Not on jamilah e 11/14/2022 Are you concerned about learning? Not on file 11/14/2022 No 11/14/2022 No 11/14/2022 Digital Access Answer Date Recorded No 12/10/2022 No 12/10/2022 Reliable internet access at home? Not on file 12/10/2022 Device with a working camera? Not on file Comments Unknown Sex and Gender Information Value Date Recorded Sex Assigned at Not on file Legal Sex Female 5:59 PM EST Gender Identity Not on file Sexual Orientation Not on file Last Filed Vital Signs Vital Sign Reading Time Taken Comments Blood Pressure - - Pulse - - Temperature 36.5 C (97.7 F) 09/19/2016 1:54 PM EST Respiratory Rate - - Oxygen Saturation - - Inhaled Oxygen Concentration - - Weight 96.2 kg (212 lb) 09/19/2016 1:54 PM EST Height 172.7 cm (5' 8 ) 09/19/2016 1:54 PM EST Body Mass Index 32.23 09/19/2016 1:54 PM EST Plan of Treatment Health Maintenance Due Date Last Done Comments Adult Td,Tdap Booster 1965 LIPID PANEL 1965 DEPRESSION SCREENING 1977 SMOKING Hx and SMOKELESS TOBACCO SCREENING 1978 HEPATITIS C SCREENING 10/07/1983 HIV ONE-TIME SCREENING (18-6 5 YEARS) 10/07/1983 PAP SMEAR 1986 MAMMOGRAM 2005 COLOGUARD 2010 COLONOSCOPY 2010 COLORECTAL CANCER SCREENING 2010 FIT TEST 2010 FOBT 2010 SIGMOIDOSCOPY 2010 VIRTUAL COLONOSCOPY 2010 ZOSTER VACCINES (1 of 2) 10/07/2015 PNEUMOCOCCAL VACCINES (50+ years) (2 of 2 - PCV) 11/16/2017 11/16/2016 INFLUENZA VACCINE (#1) 2025 04/09/2013 COVID-19 VACCINE (3 - 2024-2 6 season) 2025 01/26/2021, 01/05/2021 HEPATITIS A VACCINES Aged Out No long er eligible based on patient's age to complete this topic HIB VACCINES Aged Out No longer eligi ble based on patient's age to complete this topic MENINGOCOCCAL VACCINES (ACWY) Aged Out No longer eligible based on patient's age to complete this topic MENINGOCOCCAL VACCINES (B) Aged Out N o longer eligible based on patient's age to complete this topic Medical Devices Not on file Insurance [employer] MEDICARE PART A & [facility] & B [facility] & [place] A & B Care Teams Loader Relationship Specialty Start Date End Date Gurpreet Tsai MD [address] [place] [phone] PCP - General Internal Medicine 08/18/16 Additional Source Comments The information contained in this document represents components of the legal health record. It is not the complete legal health record.[facility]
--- OUTSIDE RECORDS SUMMARY | 2025-04-09 09:19 | XMS_ITS | Encounter Summary ---
Author Organization [employer] Address [address] [place] [address] Care Team Providers Care Livestock Buyer Name Role Phone Virginie Monet MD Primary Care Provide r Encounter Details Date Type Department Care Team ([facility] Contact Info) Description 05/19/2024 Orders Only [facility] [address] [place] [address] Virginie Monet MD [address] [place] [address] Social History Tobacco Use Types Packs/Day Years [...] Description 06/09/2025 9:45 AM EST Office Visit [facility] [address] [place] [address] documented as of this encounter Visit Diagnoses Not on filedocumented in this encounter Additional Health Concerns Assessment Noted Time PHQ-9 Depression Total Score: 15 024 11:32 AM EDT documented as of this encounter Care Teams Livestock Buyer Relationship Specialty Start Date End Date Virginie Monet MD [address] [place] [address] PCP - General Family Medicine 07/30/20 documented as of this encounter
--- OUTSIDE RECORDS SUMMARY | 2025-04-09 09:19 | XMS_ITS | Encounter Summary ---
Author Organization [employer] Address [address] [facility] 7t [place] [address] Care Team Providers Care Doctor Podiatric Medicine Name Role Phone Virginie Monet MD Primary Care Provide r Reason for Visit * Reason Comments Med Refill Encounter Details Date Type Department Care Team ([facility] st Contact Info) Description 02/19/2025 Refill [facility] [address] [place], [place] [phone] Virginie Monet MD [address] [place] [address] Depression, unspecified depression type Social History Tobacco [...] Visit [facility] [address] [place] [address] documented as of this encounter Visit Diagnoses Diagnosis Depression, unspecified depression type documented in this encounter Additional Health Concerns Assessment Noted Time PHQ-9 Depression Total Score: 0 09/17/19 25 10:52 AM EST documented as of this encounter Care Teams Doctor Podiatric Medicine Relationship Specialty Start Date End Date Virginie Monet MD [address] [place] [address] PCP - General Family Medicine 07/30/20 documented as of this encounter
--- OUTSIDE RECORDS SUMMARY | 2025-04-09 09:19 | XMS_ITS | Encounter Summary ---
Author Organization [employer] Address [address] [place] [address] Care Team Providers Care Digital Performance Analyst Name Role Phone Virginie Monet MD Primary Care Provide r Encounter Details Date Type Department Care Team ([facility] st Contact Info) Description 10/12/2023 Orders Only [facility] [address] [place], [place] [phone] Virginie Monet MD [address] [place], [place] [phone] Social History Tobacco Use Types Packs/Day Years [...] 9:45 AM EST Office Visit [facility] [address] [place] [address] documented as of this encounter Visit Diagnoses Not on filedocumented in this encounter Additional Health Concerns Assessment Noted Time PHQ-9 Depression Total Score: 0 05/29/20 23 2:13 PM EST documented as of this encounter Care Teams Digital Performance Analyst Relationship Specialty Start Date End Date Virginie Monet MD [address] [place] [address] PCP - General Family Medicine 07/30/20 documented as of this encounter
--- OUTSIDE RECORDS SUMMARY | 2025-04-09 09:19 | XMS_ITS | Encounter Summary ---
Author Organization [employer] Address [address] [facility] 7t [place] [address] Care Team Providers Care Vice President Commercial Bank Name Role Phone Virginie Monet MD Primary Care Provide r Reason for Visit * Reason Onset Date Comments Appointment Request 02/05/2024 Encounter Details Date Type Department Care Team ([facility] Contact Info) Description 02/05/2024 Telephone [facility] [address] [place], [place] [phone] Virginie Monet MD [address] [place] [address] Appointment Request Social History Tobacco Use Types [...] Description 06/09/2025 9:45 AM EST Office Visit [facility] [address] [place] [address] documented as of this encounter Visit Diagnoses Not on filedocumented in this encounter Additional Health Concerns Assessment Noted Time PHQ-9 Depression Total Score: 15 024 11:32 AM EDT documented as of this encounter Care Teams Vice President Commercial Bank Relationship Specialty Start Date End Date Virginie Monet MD [address] [place] [address] PCP - General Family Medicine 07/30/20 documented as of this encounter
--- OUTSIDE RECORDS SUMMARY | 2025-04-09 09:19 | XMS_ITS | Clinical Summary ---
Author Organization [facility] ity Address [address] [place] [address] Care Team Providers Care Senior Sql Server Database Developer Name Role Phone Unavailable Primary Care Provider [...] 01/09/20 18, 06/14/2017, 12/13/2016, Additional history exists Depression Screening 07/16/2024 COVID-19 Vaccine ( season) 2025 Influenza Vaccine (#1) 2025 04/09/2013 RSV Immunization Adult Patients (1 - 1-dose 75+ series) 2040 HIB Vaccines Aged Out No longer eligi [...]
--- OUTSIDE RECORDS SUMMARY | 2025-04-09 09:19 | XMS_ITS | Encounter Summary ---
Author Organization [employer] Address [address] [facility] [address] [place] [address] Care Team Providers Care Careers Adviser Name Role Phone Virginie Monet MD Primary Care Provide r Reason for Visit * Reason Comments Med Refill Encounter Details Date Type Department Care Team ([facility] st Contact Info) Description 01/03/2024 Refill [facility] [address] [place], [place] [phone] Virginie Monet MD [address] [place] [address] Anxiety Social History Tobacco Use Types Packs/Day [...] 9:45 AM EST Office Visit [facility] [address] [place] [address] documented as of this encounter Visit Diagnoses Diagnosis Anxiety Anxiety state, unspecified documented in this encounter Additional Health Concerns Assessment Noted Time PHQ-9 Depression Total Score: 0 05/29/20 23 2:13 PM EST documented as of this encounter Care Teams Careers Adviser Relationship Specialty Start Date End Date Virginie Monet MD [address] [place] [address] PCP - General Family Medicine 07/30/20 documented as of this encounter
--- OUTSIDE RECORDS SUMMARY | 2025-04-09 09:19 | XMS_ITS | Continuity of Care Document ---
Author Name [facility] Address [address] [place] [address] Organization Unknown Address [address] [place], [place] [phone] Medications No known medications Problems No known problems
--- OUTSIDE RECORDS SUMMARY | 2025-04-09 09:19 | XMS_ITS | Encounter Summary ---
Author Organization [employer] Address [address] [facility] 7t [place] [address] Care Team Providers Care Stove Installer Name Role Phone Virginie Monet MD Primary Care Provide r Reason for Visit * Reason Onset Date Comments SUPPORT DIRECTOR 09/17/2024 Encounter Details Date Type Department Care Team ([facility] Contact Info) Description 09/17/2024 Telephone [facility] [address] [place], [place] [phone] Virginie Monet MD [address] [place] [address] SUPPORT DIRECTOR Social History Tobacco Use Types Packs/Day Years [...] she filled out paper work for more SUPPORT DIRECTOR 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 Contact pt at [phone] documented in this encounter Plan of Treatment Upcoming Encounters Date Type Department Care Team (Late st Contact Info) Description 06/09/2025 9:45 AM EST Office Visit [facility] [address] [place] [address] documented as of this encounter Visit Diagnoses Not on filedocumented in this encounter Additional Health Concerns Assessment Noted Time PHQ-9 Depression Total Score: 0 09/17/19 10:52 AM EST documented as of this encounter Care Teams Stove Installer Relationship Specialty Start Date End Date Virginie Monet MD [address] [place] [address] PCP - General Family Medicine 07/30/20 documented as of this encounter
--- OUTSIDE RECORDS SUMMARY | 2025-04-09 09:19 | XMS_ITS | Encounter Summary ---
Author Organization [employer] Address [address] [facility] [address] [place] [address] Care Team Providers Care Formstone Fitter Name Role Phone Virginie Monet MD Primary Care Provide r Reason for Visit * Reason Onset Date Comments Appointment Request 06/25/2023 Encounter Details Date Type Department Care Team ([facility] Contact Info) Description 06/25/2023 Telephone [facility] MEDICINE [address], [place] [phone] Virginie Monet MD [address] [place] [address] Appointment Request Social History Tobacco Use Types [...] AM EDT documented as of this encounter Functional Status * Over the last 2 weeks, how often have you been bothered by any of the following problems? Question Answer Date of Assessment Author Feeling nervous, anxious, or on edge 2 06/15 9:28 AM Benita Abbott RN Not being able to stop or co ntrol worrying 1 06/27/2023 9:28 AM Benita Abbott RN Worrying too much about diff erent things 1 06/27/2023 9:28 AM Benita Abbott RN Trouble relaxing 2 06/27/2023 9:28 AM Benita DELCID ae, RN Being so restless that it is hard to sit still 2 06/27/2023 9:28 AM Benita Abbott RN Becoming easily annoyed or irritable 1 06/15 9:28 AM Benita Abbott RN Feeling afraid as if somethi ng awful might happen 0 06/27/2023 9:28 AM Benita Abbott RN CHADWICK-7 Total Score 9 06/27/2023 9:28 AM Benita Abbott RN documented as of this encounter Miscellaneous Notes * Telephone Encounter - Chicho Raman - 06/25/2023 9:57 AM EST Tc from patient requesting a call back to r/s appt on 06/25 financial writer did cancel appt per patient request documented in this encounter Plan of Treatment Upcoming Encounters Date Type Department Care Team (Late st Contact Info) Description 06/09/2025 9:45 AM EST Office Visit [facility] MEDICINE [address] [place] [address] documented as of this encounter Visit Diagnoses Not on filedocumented in this encounter Additional Health Concerns Assessment Noted Time PHQ-9 Depression Total Score: 0 05/29/20 23 2:13 PM EST documented as of this encounter Care Teams Formstone Fitter Relationship Specialty Start Date End Date Virginie Monet MD [address] [place] [address] PCP - General Family Medicine 07/30/20 documented as of this encounter
== END 2025-04-09 09:27 | disposition home or self-care (01) ==
LOC: HO.HSM 08:45
PROVIDERS: PCP Internal Medicine; Visit Provider Registered Nurse
DX: R25.1 Tremor, unspecified (principal); G43.009 Migraine without aura, not intractable, without status migrainosus
CPT/HCPCS: 99214

== ENCOUNTER → 2025-04-09 08:44 | Outpatient (BNVA) | payer OTHER, SELFPAY | PROVIDERS: PCP Internal Medicine; Visit Provider Registered Nurse | DX: G43.009 Migraine without aura, not intractable, without status migrainosus (principal); R25.1 Tremor, unspecified | CPT/HCPCS: 99212 ==

== ENCOUNTER 2025-05-11 09:03 | Observation (INO) | payer OTHER, SELFPAY ==
[2025-05-11] VITALS (9 sets, daily range): BP systolic 105–152; BP diastolic 41–65; PULSE 83–94; RESP 16–22; TEMP 36.2–36.9; O2SAT 95–97; BMI 26.9
--- NOTE | 2025-05-11 | CA_ITS ---
Acquisition Time: 2025-05-12 10:53:14 Total Exercise Time: 00:02:00 Test Indications: CP,Dyspnea Medications: SEE EMAR Protocol: LEXISCAN Max HR: 134 BPM 83% of Pred: 161 BPM Max BP: 118/48 mmHG Max Work Load: 1.0 METS Pharmacological stress test with Lexiscan while pt marches in chair, with reports of 4/10 left sided chest pressure, SOB and headache, without any arrythmias, with normotenisve repsonse to injection. With T wave inversion inferiorly and in leads V4- V6, suggestive of ischemia. In recpvery, pt treated with IVP Aminophylline 75 mg to reverse Lexiscan after which pt feeling back to baseline. Nuclear images pending. Test reviewed with Dr. Sparks. Referred By: Aníbal Sparks Electronically Signed By: Maurilio Olsen
--- NOTE | ~2025-05-11 | XR_ITS ---
EXAMINATION: XR CHEST CLINICAL INFORMATION: chest pain COMPARISON: X-ray 03/27/2021 CT chest 11/14/2024 TECHNIQUE: Frontal view of the chest was obtained. FINDINGS: The cardiomediastinal silhouette is within normal limits. The lungs are well expanded. There is no focal consolidation, edema, or effusion. Pulmonary nodules seen on the prior CT chest is not clearly evident on the x-ray. No pneumothorax. No acute osseous abnormality. XR/XR chest 1V IMPRESSION: No evidence of acute findings. Electronically signed by: Charles Charlton MD 05/11/2025 09:44 AM EDT
--- NOTE | ~2025-05-11 | NM_ITS ---
Lexiscan Myocardial perfusion study Indication: Chest pain Technique: The patient was brought in for a Lexiscan perfusion study on 05/12/2025 and was injected 0.4 mg of Lexiscan intravenously. Within a minute of this injection 33 mCi of sestamibi was given intravenously. Images were obtained using the SPECT gamma camera interlaced with the gating device. Images were obtained in supine position. Resting perfusion study was performed on 05/12/2025. Patient was administered 11 mCi of sestamibi intravenously at rest. Images were then obtained in supine position. Total DLP 76 mGy-cm. Images were processed with the software and compared side to side in short axis, horizontal long axis and vertical long axis views. Findings: Raw aquisition reviewed. The stress perfusion study showed decreased tracer uptake the in the apex and adjacent part of anterior wall. There is no significant change with CT attenuation correction. The gated study shows normal LV systolic function with calculated LVEF of 68%. LV cavity is normal in size. The gated study shows normal wall thickening and contraction of segments. Resting study shows reduced tracer uptake at the apex, basal inferoseptal wall. No major changes with CT attenuation correction. Gating at rest reveals normal wall motion with ejection fraction at 57%. The findings are consistent with reversible apical defect, but with normal contractility. NM/NM ese perf SPECT rest & str Impression: 1. Myocardial perfusion imaging study shows possible apical ischemia. 2. Gated LVEF is 68% during stress and 57% during rest. 3. Transient ischemic dilatation not present. EKG component of the test reported separately. Electronically signed by: Aníbal Sparks MD 05/12/2025 02:47 PM EDT
--- NOTE | ~2025-05-11 | CT_ITS ---
EXAMINATION: CT CHEST ANGIOGRAPHY WITH IV CONTRAST INDICATION: L sided chest pain with radiation to the back, COMPARISON: Comparison is made with the prior examination dated 11/14/2024. TECHNIQUE: Helical CT scan of the chest was performed following administration of intravenous contrast (65 mL Omnipaque 350). The contrast bolus was timed to optimally opacify the pulmonary arteries. Thin sections were obtained through the pulmonary arteries. Coronal and sagittal reformatted images were generated. 3D/MIP reconstructed images are also obtained and reviewed. This CT exam was performed with one or more of the following dose reduction techniques: automated exposure control, adjustment of the mA and/or kV according to patient size, use of iterative reconstruction technique. DLP: 828. mGy-cm CHEST: THYROID: The thyroid gland is unremarkable. PULMONARY ARTERIES: The examination is limited by patient motion. No definite intraluminal filling defects are identified within the pulmonary arteries to suggest pulmonary emboli. LUNGS: Again seen are scattered 3-4 mm nodules in the right upper lobe (series 6, images 19 and 25), in the right middle lobe (series 6, images 57, 61, 66, and 67), and in the left upper lobe (series 6, image 42). There are no focal airspace opacities. MEDIASTINUM: There are enlarged AP window lymph nodes measuring up to 1.4 cm in size. Subcarinal lymph nodes measure up to 1.8 cm. GIOVANA: There are bilateral hilar lymph nodes measuring up to 10 mm. CARDIOVASCULATURE: The heart is enlarged. There is no pericardial effusion. The thoracic aorta is normal in caliber. DEGREE OF CORONARY CALCIFICATION: not evaluable, due to dense contrast in the coronary arteries. PLEURA: There is no pleural effusion. No pneumothorax. MAIN AIRWAYS: The mainstem bronchi and proximal branches are patent. AXILLA: There is no axillary lymphadenopathy. UPPER ABDOMEN: The visualized portions of the liver, spleen, and adrenals are unremarkable. BONES AND SOFT TISSUES: Unremarkable. CT/CT angio chest PE protocol IMPRESSION: 1. Limited examination due to patient motion. No definite evidence of pulmonary emboli. 2. Scattered subcentimeter bilateral pulmonary nodules without significant change. 3. Borderline mediastinal and hilar lymph nodes as described. Continued follow-up is recommended. Electronically signed by: Rodney Prajapati MD 05/11/2025 11:34 AM EDT
--- NOTE | 2025-05-11 09:06 | ECG_ITS ---
Test Reason : diff.asad Blood Pressure : */* mmHG Vent. Rate : 98 BPM Atrial Rate : 98 BPM P-R Int : 126 ms QRS Dur : 84 ms QT Int : 314 ms P-R-T Axes : 55 36 107 degrees QTcB Int : 400 ms AGE AND GENDER SPECIFIC ECG ANALYSIS Normal sinus rhythm Possible Left atrial enlargement ST elevation consider inferior injury or acute infarct ACUTE UT / STEMI Consider right ventricular involvement in acute inferior infarct Abnormal ECG When compared with ECG of 27-Mar-2021 00:38, Vent. rate has increased by 33 bpm Non-specific change in ST segment in Inferior leads Nonspecific T wave abnormality, worse in Inferior leads T wave inversion now evident in Lateral leads Referred By: Generic ED Physician Electronically Signed By:
--- NOTE | 2025-05-11 09:24 | ED.CHESTPAIN ---
HPI - Chest Pain General Chief Complaint: Chest Pain Stated Complaint: CP, diff breathing Time Seen by Provider: 05/11/25 09:15 Source: patient, EMS and old records reviewed Mode of arrival: EMS Limitations: no limitations History of Present Illness ED Provider: YARI HPI narrative: 59 yo female with PMH of COPD and current smoker, hypothyroidism, HTN, T2DM, pos family hx of CAD and SC in father in his 60s and younger brother with 3 stents in his 40s - has known CAD from chest CT she has follow up with cardiology in May. She presents today with c/o 3 days of chest pain that is constant and radiates to the back. No recent travel, procedures, leg swelling. She notes she has RIVER with simple daily tasks like dished and showering. 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 She feels exertion makes it worse. She has a cough with brown sputum but no bleeding and no fevers. She feels the pain is always there and sometimes stabs to the back. MD complaint: chest pain Pertinent past history: coronary artery disease Onset (ago): day(s) (3) Timing of current episode: constant Prior episodes: Yes Onset: during rest and during exertion Pain location: left chest Pain radiation: back Severity: moderate Quality: aching, heaviness and sharp Relieving factors: nothing Exacerbating factors: exertion Context: other Associated symptoms: dyspnea Treatment prior to arrival: aspirin Related Data Home Medications ?Medication ?Instructions ?Recorded ?Confirmed duloxetine 60 mg capsule,delayed 60 mg PO DAILY 08/18/21 04/09/25 release ropinirole 3 mg tablet 3 mg PO BEDTIME 10/06/21 04/09/25 amitriptyline 75 mg tablet 75 mg PO BEDTIME 11/28/21 04/09/25 omeprazole 20 mg capsule,delayed 20 mg PO BID 11/28/21 04/09/25 release aripiprazole 2 mg tablet 2 mg PO DAILY 02/16/22 04/09/25 nebulizers 10/27/22 04/09/25 nebulizers 10/12/23 04/09/25 semaglutide 0.25 mg or 0.5 mg (2 2 mg subcut QWEEK 12/19/24 04/09/25 mg/3 mL) subcutaneous pen injector (Ozempic) Previous Rx's ?Medication ?Instructions ?Recorded lancets 28 gauge (FreeStyle #50 ea 11/16/20 Lancets) naloxone 4 mg/actuation nasal 4 mg intranasal Q2M PRN opioid 09/01/21 spray (Narcan) overdose #2 ea levothyroxine 125 mcg tablet 125 mcg PO DAILY 30 days #30 tabs 01/23/22 atorvastatin 40 mg tablet 40 mg PO DAILY #60 tabs 06/20/23 hydrochlorothiazide 12.5 mg tablet 12.5 mg PO DAILY #90 tabs 06/20/23 fluticasone fur. 200 mcg-umeclid 1 inh inhalation DAILY 30 days #60 08/26/24 62.5 mcg-vilant 25 mcg ea inhalat.powder (Trelegy Ellipta) albuterol sulfate 2.5 mg/3 mL 2.5 mg (3 mL) continuous 08/29/24 (0.083 %) solution for nebulization nebulization QID PRN for wheezing #180 mL isosorbide mononitrate 30 mg 30 mg PO DAILY #60 tabs 09/03/24 tablet,extended release 24 hr oxycodone 5 mg tablet 5 mg PO Q6H PRN pain #20 tabs 09/22/24 albuterol sulfate 90 mcg/actuation 2 puff PO Q6H PRN for wheezing 30 12/16/24 aerosol inhaler days #8.5 grams montelukast 10 mg tablet 10 mg PO BEDTIME 30 days #30 tabs 04/07/25 (Singulair) magnesium oxide 400 mg PO BEDTIME 90 days #90 tabs 04/09/25 topiramate 25 mg tablet 25 mg PO BID 30 days #60 tabs 04/09/25 Allergies Allergy/AdvReac Type Severity Reaction Status Date / Time adhesive tape Allergy Severe BLISTERS Verified 05/11/25 09:22 Tetanus Vaccines and Toxoid Allergy Intermediate SWELLING, Verified 05/11/25 09:22 (TETANUS VACCINES & TOXOID) REDNESS surgical tape Allergy Severe hives/boils Uncoded 04/09/25 09:08 Review of Systems Review of Systems: Constitutional : No Fever, No Chills ENT/Mouth : No sore throat, No Rhinorrhea, No Swallowing Difficulty Eyes: No Eye Pain, No Swelling, No Redness Cardiovascular : pos Chest Pain, positive SOB, No Orthopnea, no Edema Respiratory : pos Cough, pos Sputum, No Wheezing, positive dyspnea Gastrointestinal : No Nausea, No Vomiting, No Diarrhea, No abdominal Pain, No Hematochezia, No Melena Genitourinary : No Dysuria, No Urinary Frequency, No Hematuria Musculoskeletal : No joint pain, No Myalgias Skin : No Skin Lesions, No rash Neuro : No Weakness, No Numbness, No Dizziness, No Headache All other systems reviewed and are negative [facility] Past Medical History Attestation statement: The following information was validated with the patient. Source: old records reviewed Medical History Migraine without aura BOY on CPAP RLS (restless legs syndrome) Coronary artery disease Nicotine dependence, cigarettes, uncomplicated Pulmonary hypertension Dyspnea Vitamin D deficiency Mixed irritable bowel syndrome Michael's thyroiditis Fibromyalgia Type 2 diabetes mellitus Obesity (BMI 30-39.9) Hypothyroidism BOY (obstructive sleep apnea) Hypertension Pulmonary nodules Asthma-COPD overlap syndrome Surgical History History of colon resection History of cholecystectomy History of colonoscopy History of esophagogastroduodenoscopy (EGD) History of lithotripsy History of surgery on right wrist History of excision of mass (09/28/21) History of elbow surgery Status post tendon repair Status post trigger finger release H/O hand surgery H/O excision of ganglion cyst H/O arthroscopy of right knee Family History Family History Father Myocardial infarction Hypertension Diabetes CVD (cardiovascular disease) Mother Restless leg syndrome Diabetes Paternal Aunt Breast cancer Uterine cancer Social History Social History Are you a primary care coordinator to a significant other at home: No Do you presently have visiting nurse or other home services: Yes ([employer] FAMILY [employer] 3 x week, 2 hours) Alcohol intake: former Patient Tobacco Use Status: Current everyday Tobacco user Tobacco use type: Cigarette Cigarettes Per Day: 6 Years Smoked: (onset 18yo, 1/2-1ppd x 41yrs, now 1/4ppd - 30pyh) Smoked in Last 30 Days: Yes Use of substances other than those prescribed or required for medical reasons: No Advance Directives: No Advance Directives Information Provided: Yes Do you have a plan to hurt others: No Plan Physical Exam Vital Signs: Vital Signs: Last Vital Signs Temp 98.1 F 05/11/25 12:02 Pulse 83 05/11/25 12:43 Resp 18 05/11/25 12:43 BP 125/65 05/11/25 12:43 Pulse Ox 96 05/11/25 12:43 O2 Del Method Room Air 05/11/25 12:43 BMI result Body Mass Index 26.9 Appearance: Alert. Oriented X3. No acute distress. Eyes: Pupils equal, round and reactive to light. ENT: Pharynx normal. Neck: Normal inspection. Neck supple. CVS: Normal heart rate and rhythm. Pulses normal. Respiratory: No respiratory distress. Breath sounds diminished Abdomen: Soft and nontender. Skin: Skin warm and dry. Normal skin color. Extremities: No lower extremity edema. Neuro: Oriented X 3. No motor deficit. No sensory deficit. Medications Administered Discontinued Medications Generic Name Dose Route Start Last Admin Trade Name Freq PRN Reason Stop Dose Admin Iohexol 100 ml 05/11/25 11:12 05/11/25 11:12 Iohexol 350 Mg/Ml 100 Ml Infus..Btl IV 05/11/25 11:13 65 ml ONCE ONE Administration Morphine Sulfate 4 mg 05/11/25 09:22 05/11/25 09:41 Morphine Sulfate 4 Mg/Ml Cartridge IVPUSH 05/11/25 09:23 4 mg ONCE ONE Administration Protocol Nitroglycerin 0.4 mg 05/11/25 12:01 05/11/25 12:08 Nitroglycerin 0.4 Mg Tab.Subl SUBLINGUAL 05/11/25 12:02 0.4 mg ONCE ONE Administration Ondansetron HCl 4 mg 05/11/25 09:22 05/11/25 09:42 Ondansetron Hcl 4 Mg/2 Ml Vial IVPUSH 05/11/25 09:23 4 mg ONCE ONE Administration Medical Decision Making Medical Decision Making MDM Narrative: 59 yo female with PMH of COPD and current smoker, hypothyroidism, HTN, T2DM, pos family hx of CAD now here with c/o chest pain, RIVER and some radiation of the pain to the back. At this time will need trop, EKG, CXR, ddimer - IV pain medications. I am going to likely repeat a troponin and possibly discuss admission for ECHO. 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 05/11/25 09:36 05/11/25 09:36 Labs: Lab Results 05/11/25 05/11/25 05/11/25 Range/Units 09:36 09:39 09:40 WBC 6.5 (4.8-10.8) X10*3/uL RBC 4.97 (4.20-5.50) X10*6/uL Hgb 13.1 (12.0-16.0) g/dl Hct 39.8 (37.0-47.0) % MCV 80.1 (80.0-98.0) fL MCH 26.4 L (27.0-33.0) pg MCHC 32.9 (31.0-35.0) g/dl RDW 14.2 (11.0-16.0) % Plt Count 315 (160-400) X10*3/uL MPV 9.2 L (9.4-12.3) fL Immature Gran % (Auto) 0.3 (0.0-0.4) % Neut % (Auto) 58.0 (45-73) % Lymph % (Auto) 31.5 (20-40) % Finney % (Auto) 7.7 (2-11) % Eos % (Auto) 2.2 (0-4) % Baso % (Auto) 0.3 (0-2) % Lymph # (Auto) 2.0 (1.2-4.9) X10*3/uL Finney # (Auto) 0.5 (0.1-1.2) X10*3/uL Eos # (Auto) 0.1 (0.0-0.4) X10*3/uL Baso # (Auto) 0.0 (0.0-0.2) X10*3/uL Abs Immat Gran (auto) 0.02 (0.00-0.03) X10*3/uL Absolute Neuts (auto) 3.8 (2.0-8.3) x10*3/uL Absolute Nucleated RBC 0.000 (0.0-0.012) X10*3/uL Nucleated RBC % (auto) 0.0 (0.0-0.2) /100WBC D-Dimer High Sensitivty 365 NG/ML VBG pH 7.38 (7.32-7.43) VBG pCO2 51 mmHg VBG pO2 42 mmHg VBG HCO3 30 H (22-26) mmol/L VBG O2 Saturation 70.0 % VBG Base Excess 4.6 mmol/L Sodium 141 (135-145) mmol/L Potassium 3.8 (3.3-5.1) mmol/L Chloride 108 (96-108) mmol/L Carbon Dioxide 25 (22-29) mmol/L Anion Gap 12 (12-20) BUN 12 (9-16) mg/dL Creatinine 0.62 (0.5-1.4) mg/dL Estim Creat Clear Calc 105.1 Estimated GFR > 60 Random Glucose 147 H (60-115) mg/dL Calcium 10.0 (8.4-10.2) mg/dL Magnesium 1.8 (1.6-2.6) mg/dL Total Bilirubin 0.4 (0.0-1.0) mg/dL Direct Bilirubin 0.2 (0.0-0.5) mg/dL AST 21 (5-31) U/L ALT 25 (0-31) U/L Alkaline Phosphatase 102 (39-117) U/L Total Creatine Kinase 25 L (26-140) U/L Troponin I High Sens < 2.7 (<3.5-17.0) ng/L C-Reactive Protein 1.97 H (< or = 0.50) mg/dL NT-Pro-B Natriuret Pep 138.1 (<300) pg/mL Total Protein 7.4 (6.5-8.0) g/dL Albumin 4.1 (3.5-5.0) g/dL COVID-19 (SHAHAB) Negative (Negative) COVID-19 Clin Com See Note 05/11/25 Range/Units 12:00 WBC (4.8-10.8) X10*3/uL RBC (4.20-5.50) X10*6/uL Hgb (12.0-16.0) g/dl Hct (37.0-47.0) % MCV (80.0-98.0) fL MCH (27.0-33.0) pg MCHC (31.0-35.0) g/dl RDW (11.0-16.0) % Plt Count (160-400) X10*3/uL MPV (9.4-12.3) fL Immature Gran % (Auto) (0.0-0.4) % Neut % (Auto) (45-73) % Lymph % (Auto) (20-40) % Finney % (Auto) (2-11) % Eos % (Auto) (0-4) % Baso % (Auto) (0-2) % Lymph # (Auto) (1.2-4.9) X10*3/uL Finney # (Auto) (0.1-1.2) X10*3/uL Eos # (Auto) (0.0-0.4) X10*3/uL Baso # (Auto) (0.0-0.2) X10*3/uL Abs Immat Gran (auto) (0.00-0.03) X10*3/uL Absolute Neuts (auto) (2.0-8.3) x10*3/uL Absolute Nucleated RBC (0.0-0.012) X10*3/uL Nucleated RBC % (auto) (0.0-0.2) /100WBC D-Dimer High Sensitivty NG/ML VBG pH (7.32-7.43) VBG pCO2 mmHg VBG pO2 mmHg VBG HCO3 (22-26) mmol/L VBG O2 Saturation % VBG Base Excess mmol/L Sodium (135-145) mmol/L Potassium (3.3-5.1) mmol/L Chloride (96-108) mmol/L Carbon Dioxide (22-29) mmol/L Anion Gap (12-20) BUN (9-16) mg/dL Creatinine (0.5-1.4) mg/dL Estim Creat Clear Calc Estimated GFR Random Glucose (60-115) mg/dL Calcium (8.4-10.2) mg/dL Magnesium (1.6-2.6) mg/dL Total Bilirubin (0.0-1.0) mg/dL Direct Bilirubin (0.0-0.5) mg/dL AST (5-31) U/L ALT (0-31) U/L Alkaline Phosphatase (39-117) U/L Total Creatine Kinase (26-140) U/L Troponin I High Sens < 2.7 (<3.5-17.0) ng/L C-Reactive Protein (< or = 0.50) mg/dL NT-Pro-B Natriuret Pep (<300) pg/mL Total Protein (6.5-8.0) g/dL Albumin (3.5-5.0) g/dL COVID-19 ([facility]AB) (Negative) COVID-19 Clin Com Independent Interpretation I performed an independent interpretation of an: EKG, Plain X-Ray (normal ) and CT Scan (no PE) Interpretation: Rate: 94 Rhythm: NSR [place]: normal Normal P waves. Normal ARCELIA. Normal QRS complex. ST T wave : flat t waves lat leads, no ESTRELLA, there is artifact, nonspecific ST T wave changes lateral leads qTC: 420 prior studies: no STEMI The study has been interpreted contemporaneously by me. . Radiology Impression Discussion of test interpretation with radiology: I have reviewed the radiologist's reading. Discharge Plan Discharge Clinical Impression: Chest pain Qualifiers: Chest pain type: precordial pain Qualified Code(s): R07.2 - Precordial pain Patient Disposition: Admitted As Inpatient Print Language: Slovak
[2025-05-11 09:42] LABS: MANUAL DIFF FLAG NO
[2025-05-11 09:43] LABS: Venous Blood Gas Refer to POC result
[2025-05-11 09:43] LABS: Hematocrit 39.8 % (37.0-47.0); Hemoglobin 13.1 g/dl (12.0-16.0); Imm Gran Abs Auto 0.02 X10*3/uL (0.00-0.03); Imm Gran Pct Auto 0.3 % (0.0-0.4); Lymphocytes Absolute Auto 2.0 X10*3/uL (1.2-4.9); Mean Corpuscular HGB Conc 32.9 g/dl (31.0-35.0); Mean Corpuscular Hemoglobin 26.4 pg (27.0-33.0); Mean Corpuscular Volume 80.1 fL (80.0-98.0); NRBC Abs Auto 0.000 X10*3/uL (0.0-0.012); NRBC Pct Auto 0.0 /100WBC (0.0-0.2); Platelet Count 315 X10*3/uL (160-400); Red Blood Count 4.97 X10*6/uL (4.20-5.50); White Blood Count 6.5 X10*3/uL (4.8-10.8)
[2025-05-11 09:44] LABS: VBG HCO3 30 mmol/L (22-26); VBG O2 % Saturation 70.0 %
[2025-05-11 09:52] LABS: D Dimer High Sensitivity 365 NG/ML
--- NOTE | 2025-05-11 09:55 | PC.NURSE ---
pt is alert and oriented, skin pwd, respirations even and unlabored, ls clear, pt reports left sided chest pain that radiates to the left back area and sob with exertion and a productive cough, and pt also reports general weakness, no peading edema, ns on the monitor and vs stable
[2025-05-11 09:59] LABS: COVID-19 Test Negative (Negative); IDNOW Serial# 58CA691E
[2025-05-11 10:01] LABS: Albumin Level 4.1 g/dL (3.5-5.0); Alkaline Phosphatase 102 U/L (39-117); Anion Gap 12 (12-20); Aspartate Amino Transferase 21 U/L (5-31); Blood Urea Nitrogen 12 mg/dL (9-16); Calcium 10.0 mg/dL (8.4-10.2); Carbon Dioxide 25 mmol/L (22-29); Chloride 108 mmol/L (96-108); Creatinine Clr Calc Pharmacy 105.1; Estimated Glomerular Filt Rate > 60; Magnesium 1.8 mg/dL (1.6-2.6); Potassium 3.8 mmol/L (3.3-5.1); Sodium 141 mmol/L (135-145); Total Protein 7.4 g/dL (6.5-8.0)
[2025-05-11 10:08] LABS: Troponin-I High Sensitivity < 2.7 ng/L (<3.5-17.0)
[2025-05-11 10:12] LABS: NT Pro B Type Natriuretic Pept 138.1 pg/mL (<300)
[2025-05-11 10:39] LABS: Alanine Aminotransferase 25 U/L (0-31)
[2025-05-11] MEDS: iohexoL 350 MG/ML 100 ML INFUS..BTL IV (11:12)
--- OUTSIDE RECORDS SUMMARY | 2025-05-11 11:28 | XMS_ITS | Encounter Summary ---
Author Organization [employer] Address [address] [facility] [address] [place] [address] Care Team Providers Care Lean [employer] Sigma Black Belt Name Role Phone Virginie Monet MD Primary Care Provide r Reason for Visit * Reason Comments Med Refill Encounter Details Date Type Department Care Team ([facility] st Contact Info) Description 04/11/2025 Refill [facility]EDS [address] [place], [place] [phone] Virginie Monet MD [address] [place] [address] Prediabetes Social History Tobacco Use Types Packs/Day [...] Care Team (Late st Contact Info) Description 05/12/2025 9:45 AM EDT Office Visit [facility] MEDICINE [address] [place] [phone] 06/30/2025 9:00 AM EST Office Visit [address] [phone] Virginie Monet MD [address] [place] [phone] documented as of this encounter Visit Diagnoses Diagnosis Prediabetes Other abnormal glucose documented in this encounter Additional Health Concerns Assessment Noted Time PHQ-9 Depression Total Score: 11 025 9:05 AM EDT documented as of this encounter Care Teams Lean [employer] Black Belt Relationship Specialty Start Date End Date Virginie Monet MD [address] [place] [id number] PCP - General Family Medicine 07/30/20 documented as of this encounter
--- OUTSIDE RECORDS SUMMARY | 2025-05-11 11:28 | XMS_ITS | Encounter Summary ---
Author Organization [employer] Address [address] [facility] 7t [place] [address] Care Team Providers Care Product Developer Name Role Phone Virginie Monet MD Primary Care Provide r Encounter Details Date Type Department Care Team ([facility] Contact Info) Description 05/11/2025 Orders Only GENERIC EXTERNAL DATA DEPARTMENT Provider, [...] Upcoming Encounters Date Type Department Care Team ([facility] st Contact Info) Description 05/12/2025 9:45 AM EDT Office Visit [facility] [address] [place] [phone] 06/30/2025 9:00 AM EST Office Visit [facility] [address] [place] [phone] Virginie Monet MD [address] [place] [phone] documented as of this encounter Procedures Procedure Name Priority Date/Time Associated Diagnosis Comments VENOUS BLOOD GAS Routine 05/11/2025 9:40 AM EDT COVID-19 ID NOW (BRITO) Routine 05/11/2025 9:39 AM EDT D DIMER HIGH SENSITIVITY Routine 05/11/2025 9:36 AM EDT HIGH SENSITIVITY TROPONIN I Routine 05/11/2025 9:36 AM EDT NT-PROBNP Routine 05/11/2025 9:36 AM EDT CBC WITH AUTO DIFFERENTIAL Routine 05/11/2025 9:36 AM EDT C-REACTIVE PROTEIN Routine 05/11/2025 9: 36 AM EDT MAGNESIUM Routine 05/11/2025 9:36 AM EDT CREATINE KINASE, TOTAL Routine 05/11/2025 9:36 AM EDT HEPATIC FUNCTION PANEL Routine 05/11/2025 9:36 AM EDT BASIC METABOLIC PANEL Routine 05/11/2025 9:36 AM EDT XR CHEST 1 VIEW Routine 05/11/2025 9:30 AM EDT documented in this encounter Results * (ABNORMAL) VENOUS BLOOD GAS (05/11/2025 9:40 AM EDT) VBG pH 7.38 7.32 - 7.43 [facility] Comment:METER #: [id number] additional_comment: Cb bailea VBG PCO2 51 mmHg [facility] Comment:METER #: [id number] additional_comment: Cb bailea VBG PO2 42 mmHg [facility] Comment:METER #: [id number] additional_comment: Cb bailea VBG Base Excess 4.6 mmol/L [facility] Comment:METER #: [id number] additional_comment: Cb bailea VBG HCO3 30(H) 22 - 26 mmol/L [facility] Comment:METER #: [id number] additional_comment: Cb bailea O2 Sat, Kamaljit 70.0 % [facility] Comment:METER #: [id number] additional_comment: Cb bailea 05/11/2025 9:40 AM EDT 05/11/2025 9:43 AM EDT us Generic External Data Provider LAB BLOOD ORDERAB LES Final Result [facility] [address] [place] [phone] * COVID-19 ID NOW (BRITO) (05/11/2025 9:39 AM EDT) IDNOW SERIAL# [id number] [facility] COVID-19 TEST Negative Negative [facility] COVID-19 NOTE See Note [facility] Comment: Results are for the identification of SARS-CoV2 RNA. TheSARS-CoV2 RNA is generally detectable in respiratory samplesduring the acute phase of infection. Positive results areindicative of the presence of SARS-CoV-2 RNA; clinicalcorrelation with patient history and other diagnosticinformation is necessary to determine patient infectionstatus. Positive results do not rule out bacterial infectionor co- infection with other viruses.Testing facilities within the [facility] and [facility] are required to report all positive results tothe appropriate public health authorities.Negative results should be treated as presumptive and, ifinconsistent with clinical signs and symptoms or necessaryfor patient management, should be tested with differentauthorized or cleared molecular tests. Negative results donot preclude SARS-CoV2 RNA infection and should not be usedas the sole basis for patient management decisions. Negativeresults should be considered in the context of a patient'srecent exposures, history and the presence of clinical signsand symptoms consistent with COVID-19.This test has been authorized by the FDA under an EmergencyUse Authorization (EUA) for use by authorized laboratories.Testing performed on the Brito ID NOW utilizing NAAT. 05/11/2025 9:39 AM EDT 05/11/2025 9:43 AM EDT us Generic External Data Provider LAB MOLECULAR EVELIN GNOSTICS ORDERABLES Final Result [facility] [address] [place] [phone] * NT-proBNP (05/11/2025 9:36 AM EDT) NT-proBNP 138.1 <300 pg/mL [facility] Comment:Reference Range:Age Group (years) NT-proBNP (pg/ml) InterpretationAll <300 Negative: HF unlikelyFor patients presenting to the ED with clinical suspicion ofnew onset or worsening HF, see below:18 to <50 >299.9 to <450.0 Grayzone: [id number] to 75 >299.9 to <900.0 other causes of>75 >299.9 to <1800.0 NT-proBNP [id number] to <50 >449.9 Positive: HF [id number] >899.9>75 >1799.9Note: Elevated NT-proBNP levels should be interpreted inthe context of other clinical information. 05/11/2025 9:36 AM EDT 05/11/2025 9:41 AM EDT Generic External Data Provider LAB BLOOD ORDERAB LES Final Result Performing Organization Address [facility] Co de Phone Number [facility] [address] [place] [phone] * High Sensitivity Troponin I (05/11/2025 9:36 AM EDT) Pathologist [facility] TROPONIN I HIGH SENSITIVITY <2.7 <3.5 - 17.0 ng/L [facility] Comment:The Brito high sens itivity Troponin-I results should beused in conjunction with other diagnostic information suchas ECG, clinical observations and information, and patientsymptoms to aid in the diagnosis of [place]. 05/11/2025 9:36 AM EDT 05/11/2025 9:41 AM EDT Generic External Data Provider LAB BLOOD ORDERAB LES Final Result Performing Organization Address [facility] Co de Phone Number [facility] [address] [place] [phone] * (ABNORMAL) C-reactive Protein (05/11/2025 9:36 AM EDT) C Reactive Protein 1.97(H) < or = 0.50 mg/dL [facility] 05/11/2025 9:36 AM EDT 05/11/2025 9:41 AM EDT us Generic External Data Provider LAB BLOOD ORDERAB LES Final Result Performing Organization Address [facility] de Phone Number [facility] [address] [place] [phone] * (ABNORMAL) Creatine Kinase, Total (05/11/2025 9:36 AM EDT) Pathologist [facility] Creatine Kinase Total 25(L) 26 - 140 U/L [facility] 05/11/2025 9:36 AM EDT 05/11/2025 9:41 AM EDT us Generic External Data Provider LAB BLOOD ORDERAB LES Final Result Performing Organization Address [facility] Phone Number [facility] [address] [place] [phone] * Magnesium (05/11/2025 9:36 AM EDT) Pathologist [facility] Magnesium 1.8 1.6 - 2.6 mg/dL [facility] 05/11/2025 9:36 AM EDT 05/11/2025 9:41 AM EDT Generic External Data Provider LAB BLOOD ORDERAB LES Final Result Performing Organization Address [facility] de Phone Number [facility] [address] [place] [phone] * (ABNORMAL) Basic Metabolic Panel (05/11/2025 9:36 AM EDT) Pathologist [facility] Sodium 141 135 - 145 mmol/L [facility] Potassium 3.8 3.3 - 5.1 mmol/L [facility] Chloride 108 96 - 108 mmol/L [facility] Carbon Dioxide 25 22 - 29 mmol/L [facility] Anion Gap 12 12 - 20 [facility] Urea Nitrogen (BUN) 12 9 - 16 mg/dL [facility] Creatinine, Serum 0.62 0.5 - 1.4 mg/dL [facility] Creatinine Clr Calc Pharmacy 105.1 [facility] Comment:Provided height and weight: 170.18 cm,77.9 kg.eGFR (calculated from the MDRD study equation) and eCrCl(calculated from the Cockcroft-Gault equation) are based ondifferent parameters and may not yield comparable results.If eCrCl result is absurd, please check patient'sheight/weight. Estimated Glomerular Filt Rate >60 [facility] Comment:Chronic Kidney Disea se: Estimated GFR < 60 mL/min/1.07d1Smnstn Kidney Disease: Estimated GFR < 15 mL/min/1.73m2 Glucose 147(H) 60 - 115 mg/dL [facility] Calcium 10.0 8.4 - 10.2 mg/dL [facility] 05/11/2025 9:36 AM EDT 05/11/2025 9:41 AM EDT us Generic External Data Provider LAB BLOOD ORDERAB LES Final Result [facility] [address] [place] [address] [phone] * Hepatic Function Panel (05/11/2025 9:36 AM EDT) Bilirubin, Total 0.4 0.0 - 1.0 mg/dL [facility] Bilirubin, Direct 0.2 0.0 - 0.5 mg/dL [facility] Aspartate Amino Transferase 21 5 - 31 U/L [facility] Alanine Aminotransferase 25 0 - 31 U/L [facility] Total Protein 7.4 6.5 - 8.0 g/dL [facility] Albumin Level 4.1 3.5 - 5.0 g/dL [facility] Alkaline Phosphatase 102 39 - 117 U/L [facility] 05/11/2025 9:36 AM EDT 05/11/2025 9:41 AM EDT Generic External Data Provider LAB BLOOD ORDERAB LES Final Result Performing Organization Address [facility] Co de Phone Number [facility] [address] [place] [phone] * D Dimer High Sensitivity (05/11/2025 9:36 AM EDT) [facility] D Dimer High Sensitivity 365 NG/ML [facility] Comment:D-DIMER HS REFERENCE RANGENote: Our assay reports D-Dimer Units (D- DU).The cut-off value for venous thromboembolic (VTE) disease is230 ng/mL. This value has a very high negative predictivevalue when the patient has a low to moderate clinicalprobability of VTE.The upper limit of normal is 243 ng/mL. 05/11/2025 9:36 AM EDT 05/11/2025 9:41 AM EDT Generic External Data Provider LAB BLOOD ORDERAB LES Final Result Performing Organization Address [facility] Co de Phone Number [facility] [address] [place] [phone] * (ABNORMAL) CBC auto differential (05/11/2025 9:36 AM EDT) [facility] White Blood Count 6.5 4.8 - 10.8 X10*3/uL [facility] Red Blood Count 4.97 4.20 - 5.50 X10*6/uL [facility] Hemoglobin 13.1 12.0 - 16.0 g/dl [facility] Hematocrit 39.8 37.0 - 47.0 % [facility] Mean Corpuscular Volume 80.1 80.0 - 98.0 fL [facility] Mean Corpuscular Hemoglobin 26.4(L) 27.0 - 33.0 pg [facility] Mean Corpuscular HGB Conc 32.9 31.0 - 35.0 g/dl [facility] Red Cell Distribution Width 14.2 11.0 - 16.0 % [facility] Platelet Count 315 160 - 400 X10*3/uL [facility] Mean Platelet Volume 9.2(L) 9.4 - 12.3 fL [facility] Neutrophils Percent Auto 58.0 45 - 73 % [facility] Imm Gran Pct Auto 0.3 0.0 - 0.4 % [facility] Lymphocytes Percent Auto 31.5 20 - 40 % [facility] Monocytes Percent Auto 7.7 2 - 11 % [facility] Eosinophils Percent Auto 2.2 0 - 4 % [facility] Basophils Percent Auto 0.3 0 - 2 % [facility] NRBC Pct Auto 0.0 0.0 - 0.2 /100WBC [facility] Neutrophils Absolute Auto 3.8 2.0 - 8.3 x10*3/uL [facility] Imm Gran Abs Auto 0.02 0.00 - 0.03 X10*3/uL [facility] Lymphocytes Absolute Auto 2.0 1.2 - 4.9 X10*3/uL [facility] Monocytes Absolute Auto 0.5 0.1 - 1.2 X10*3/uL [facility] Eosinophils Absolute Auto 0.1 0.0 - 0.4 X10*3/uL [facility] Basophils Absolute Auto 0.0 0.0 - 0.2 X10*3/uL [facility] NRBC Abs Auto 0.000 0.0 - 0.012 X10*3/uL [facility] 05/11/2025 9:36 AM EDT 05/11/2025 9:41 AM EDT us Generic External Data Provider LAB BLOOD ORDERAB LES Final Result [facility] [address] [place] [phone] * XR Chest 1 View (05/11/2025 9:30 AM EDT) Anatomical Region Laterality Modality Chest Radiographic Zora ging 05/11/2025 9:30 AM EDT Narrative 05/11/2025 9:47 AM EDT [address] [address] XRay Report Signed Patient: Virginie Martins MR#: [id number] [birth year] : 1965 Acct:[id number] Age/Sex: 59 / F ADM Date: 05/11/25 Loc: .ED Attending Dr: Ordering Physician: Elaina Hull DO Date of Service: 05/11/25 Procedure(s): XR chest 1V Accession Number(s): [id number] cc: Virginie Monet MD; Elaina Hull DO Reason for Exam: chest pain EXAMINATION: XR CHEST CLINICAL INFORMATION: chest pain COMPARISON: X-ray 03/27/2021 CT chest 11/14/2024 TECHNIQUE: Frontal view of the chest was obtained. FINDINGS: The cardiomediastinal silhouette is within normal limits. The lungs are well expanded. There is no focal consolidation, edema, or effusion. Pulmonary nodules seen on the prior CT chest is not clearly evident on the x-ray. No pneumothorax. No acute osseous abnormality. XR/XR chest 1V IMPRESSION: No evidence of acute findings. Electronically signed by: Charles Charlton MD 05/11/2025 09:44 AM EDT Dictated By: Charles Charlton MD Signed By: <Electronically signed by Charles Charlton MD in OV> 05/11/25943 DD/ 9 TD/TT: 05/11/25933 Family Living Educator: Procedure Note Donotuseinterpreter, Image - 05/11/[address] [address] XRay Report Signed Patient: Virginie Martins AMR#: [id number] [birth year] : 1965Acct:[id number] Age/Sex: 59 / FADM Date: 05/11/25 Loc: .ED Attending Dr: Ordering Physician: Elaina Hull DO Date of Service: 05/11/25 Procedure(s): XR chest 1V Accession Number(s): [id number] cc: Virginie Monet MD; Elaina Hull DO Reason for Exam: chest pain EXAMINATION: XR CHEST CLINICAL INFORMATION: chest pain COMPARISON: X-ray 03/27/2021 CT chest 11/14/2024 TECHNIQUE: Frontal view of the chest was obtained. FINDINGS: The cardiomediastinal silhouette is within normal limits. The lungs are well expanded. There is no focal consolidation, edema, or effusion. Pulmonary nodules seen on the prior CT chest is not clearly evident on the x-ray. No pneumothorax. No acute osseous abnormality. XR/XR chest 1V IMPRESSION: No evidence of acute findings. Electronically signed by: Charles Charlton MD 05/11/2025 09:44 AM EDT RP Dictated By: Charles Charlton MD Signed By: <Electronically signed by Charles Charlton MD in OV> 05/11/25943 DD/ 9 TD/TT: 05/11/25933 Family Living Educator: AN[facility]IO [facility] External Provider IMG XR PROCEDURES Edited Result - Final documented in this encounter Visit Diagnoses Not on filedocumented in this encounter Additional Health Concerns Assessment Noted Time PHQ-9 Depression Total Score: 11 025 9:05 AM EDT documented as of this encounter Care Teams Product Developer Relationship Specialty Start Date End Date Virginie Monet MD [address] [place] [phone] PCP - General Family Medicine 07/30/20 documented as of this encounter
--- OUTSIDE RECORDS SUMMARY | 2025-05-11 11:28 | XMS_ITS | Encounter Summary ---
Author Organization [employer] Address [address] [facility] 7t [place] [address] Care Team Providers Care Adult Basic Education Teacher Name Role Phone Virginie Monet MD Primary Care Provide r Reason for Visit * Reason Onset Date Comments Nurse Triage 12/14/2023 Encounter Details Date Type Department Care Team ([facility] Contact Info) Description 12/14/2023 Telephone [facility] [address] [place], [place] [phone] Virginie Monet MD [address] [place] [address] Nurse Triage Social History Tobacco Use Types [...] immediate release tablet To be sent to: [facility] documented in this encounter Plan of Treatment Upcoming Encounters Date Type Department Care Team (Late st Contact Info) Description 05/12/2025 9:45 AM EDT Office Visit [facility] [address] [place] [phone] 06/30/2025 9:00 AM EST Office Visit [facility] [address] [place] [phone] Virginie Monet MD [address] [place] [address] documented as of this encounter Visit Diagnoses Diagnosis Chronic bilateral low back pain without sciatica documented in this encounter Additional Health Concerns Assessment Noted Time PHQ-9 Depression Total Score: 0 05/29/20 23 2:13 PM EST documented as of this encounter Care Teams Adult Basic Education Teacher Relationship Specialty Start Date End Date Virginie Monet MD [address] [place] [address] PCP - General Family Medicine 07/30/20 documented as of this encounter
--- OUTSIDE RECORDS SUMMARY | 2025-05-11 11:28 | XMS_ITS | Encounter Summary ---
Author Organization [employer] Address [address] [facility] 7t [place] [address] Care Team Providers Care Bean Dumper Name Role Phone Virginie Monet MD Primary Care Provide r Reason for Visit * Reason Onset Date Comments Appointment Request 02/05/2024 Encounter Details Date Type Department Care Team ([facility] Contact Info) Description 02/05/2024 Telephone [facility] [address] [place], [place] [phone] Virginie Monet MD [address] [place] [phone] Appointment Request Social History Tobacco Use Types [...] Description 05/12/2025 9:45 AM EDT Office Visit [facility] [address] [place] [phone] 06/30/2025 9:00 AM EST Office Visit [facility] [address] [place] [phone] Virginie Monet MD [address] [place] [phone] documented as of this encounter Visit Diagnoses Not on filedocumented in this encounter Additional Health Concerns Assessment Noted Time PHQ-9 Depression Total Score: 15 024 11:32 AM EDT documented as of this encounter Care Teams Bean Dumper Relationship Specialty Start Date End Date Virginie Monet MD [address] [place] [address] PCP - General Family Medicine 07/30/20 documented as of this encounter
--- OUTSIDE RECORDS SUMMARY | 2025-05-11 11:28 | XMS_ITS | Encounter Summary ---
Author Organization [employer] Address [address] [facility] 7t [place] [address] Care Team Providers Care Forest Management Professor Name Role Phone Virginie Monet MD Primary Care Provide r Reason for Visit * Reason Comments Med Refill Encounter Details Date Type Department Care Team ([facility] st Contact Info) Description 01/03/[address] [facility] MED[facility]INE [address] [place], [place] [phone] Virginie Monet MD [address] [place] [address] Anxiety Social History Tobacco Use Types Packs/Day [...] Description 05/12/2025 9:45 AM EDT Office Visit [facility] MED[facility]INE [address] [place] [phone] 06/30/2025 9:00 AM EST Office Visit [address] [address] Virginie Monet MD [address] [place] [phone] documented as of this encounter Visit Diagnoses Diagnosis Anxiety Anxiety state, unspecified documented in this encounter Additional Health Concerns Assessment Noted Time PHQ-9 Depression Total Score: 0 05/29/20 23 2:13 PM EST documented as of this encounter Care Teams Forest Management Professor Relationship Specialty Start Date End Date Virginie Monet MD [address] [place] [phone] PCP - General Family Medicine 07/30/20 documented as of this encounter
--- OUTSIDE RECORDS SUMMARY | 2025-05-11 11:28 | XMS_ITS | Encounter Summary ---
Author Organization [employer] Address 75 [facility] 7t [place] [address] Care Team Providers Care Video Game Tester Name Role Phone Virginie Monet MD Primary Care Provide r Reason for Visit * Reason Onset Date Comments Referral 10/02/2022 Encounter Details Date Type Department Care Team ([facility] st Contact Info) Description 10/02/2022 Telephone [facility] MEDICINE [address] [place], [place] [phone] Virginie Monet MD [address] [place] [address] Referral Social History Tobacco Use Types Packs/Day [...] 2:04 PM EDT Tc from Andree[facility] Waller urgent care physician assistant requesting a referral for occupational therapy evaluation for pt to be able to get a shower chair and electric lift chair . Please call to clarify at phone # [phone]. documented in this encounter Plan of Treatment Upcoming Encounters Date Type Department Care Team (Late st Contact Info) Description 05/12/2025 9:45 AM EDT Office Visit [address] [address] 06/30/2025 9:00 AM EST Office Visit [address] [address] Virginie Monet MD [address] [place] [phone] documented as of this encounter Visit Diagnoses Not on filedocumented in this encounter Care Teams Video Game Tester Relationship Specialty Start Date End Date Virginie Monet MD [address] [place] [phone] PCP - General Family Medicine 07/30/20 documented as of this encounter
--- OUTSIDE RECORDS SUMMARY | 2025-05-11 11:28 | XMS_ITS | Encounter Summary ---
Author Organization [employer] Address [address] [facility] [address] 7[address] [place] [address] Care Team Providers Care Fire Warden Name Role Phone Virginie Monet MD Primary Care Provide r Encounter Details Date Type Department Care Team ([facility] st Contact Info) Description 10/12/2023 Orders Only [facility] [address] [place], [place] [phone] Virginie Monet MD [address] [place], [place] [phone] Social History Tobacco Use Types Packs/Day Years [...] Description 05/12/2025 9:45 AM EDT Office Visit [facility] [address] [place] [phone] 06/30/2025 9:00 AM EST Office Visit [address] [address] Virginie Monet MD [address] [place] [address] documented as of this encounter Visit Diagnoses Not on filedocumented in this encounter Additional Health Concerns Assessment Noted Time PHQ-9 Depression Total Score: 0 05/29/20 23 2:13 PM EST documented as of this encounter Care Teams Fire Warden Relationship Specialty Start Date End Date Virginie Monet MD [address] [place] [phone] PCP - General Family Medicine 07/30/20 documented as of this encounter
--- OUTSIDE RECORDS SUMMARY | 2025-05-11 11:28 | XMS_ITS | Encounter Summary ---
Author Organization [employer] Address [address] [facility] 7t [place] [address] Care Team Providers Care Bowling Ball Finisher Name Role Phone Virginie Monet MD Primary Care Provide r Encounter Details Date Type Department Care Team ([facility] Contact Info) Description 08/23/2022 Orders Only [facility] MEDICINE [address] [place] [address] [phone] Yolanda Rose DO [address] [place] [phone] Social History Tobacco Use Types Packs/Day Years [...] Department Care Team (Late Contact Info) Description 05/12/2025 9:45 AM EDT Office Visit [facility] [address] [place] [address] [phone] 06/30/2025 9:00 AM EST Office Visit [address] [phone] Virginie Monet MD [address] [place] [address] [phone] documented as of this encounter Visit Diagnoses Not on filedocumented in this encounter Care Teams Bowling Ball Finisher Relationship Specialty Start Date End Date Virginie Monet MD [address] [place] [address] PCP - General Family Medicine 07/30/20 documented as of this encounter
--- OUTSIDE RECORDS SUMMARY | 2025-05-11 11:28 | XMS_ITS | Clinical Summary ---
Author Organization [facility] Address [address] [facility] [address] [place] [phone] Phone Care Team Providers Care Gynecologist Name Role Phone Gurpreet Tsai MD Primary [...] - 2024-2 6 season) 2025 01/26/2021, 01/05/2021 RSV VACCINE (1 - 1-dose 75+ series) 2040 HEPATITIS A VACCINES Aged Out No long [...] topic Medical Devices Not on file Insurance redIT MEDICARE PART A & B [employer] MED[employer] PART A & B [place] PART [place] & [place] [employer] MED[employer] PART A & B [employer] PART A & B [employer] PART A & [place] PART A & [employer] MED[employer]ARE PART A & B [employer] MEDICARE PART A & B Care Teams Gynecologist Relationship Specialty Start Date End Date Gurpreet Tsai MD [address] [place] [phone] PCP - General Internal Medicine 08/18/16 Additional Source Comments The information contained in this document represents components of the legal health record. It is not the complete legal health record.[facility]
--- OUTSIDE RECORDS SUMMARY | 2025-05-11 11:28 | XMS_ITS | Encounter Summary ---
Author Organization [employer] Address [address] [facility] 7[address] [place] [address] Care Team Providers Care Certified Flight Instructor Name Role Phone Virginie Monet MD Primary Care Provide r Reason for Visit * Reason Comments Med Refill Encounter Details Date Type Department Care Team ([facility] st Contact Info) Description 01/22/2024 Refill [facility] [address] [place], [place] [phone] Virginie Monet MD [address] [place] [address] Anxiety Social History Tobacco Use Types Packs/Day [...] Description 05/12/2025 9:45 AM EDT Office Visit [facility] [address] [place] [phone] 06/30/2025 9:00 AM EST Office Visit [address] [address] Virginie Moent MD [address] [place] [phone] documented as of this encounter Visit Diagnoses Diagnosis Anxiety Anxiety state, unspecified documented in this encounter Additional Health Concerns Assessment Noted Time PHQ-9 Depression Total Score: 15 024 11:32 AM EDT documented as of this encounter Care Teams Certified Flight Instructor Relationship Specialty Start Date End Date Virginie Monet MD [address] [place] [phone] PCP - General Family Medicine 07/30/20 documented as of this encounter
--- OUTSIDE RECORDS SUMMARY | 2025-05-11 11:29 | XMS_ITS | Encounter Summary ---
Author Organization [employer] Address [address] [facility] [address] [place] [address] Care Team Providers Care School Librarian Name Role Phone Virginie Monet MD Primary Care Provide r Reason for Visit * Reason Onset Date Comments Med Refill 02/05/2023 Encounter Details Date Type Department Care Team ([facility] Contact Info) Description 02/05/2023 Telephone [facility] MED[facility]INE [address] [place], [place] [phone] Virginie Monet MD [address] [place] [address] Med Refill Social History Tobacco Use Types [...] 9:45 AM EDT Office Visit [facility] [address] [place] [phone] 06/30/2025 9:00 AM EST Office Visit [address] [address] Virginie Monet MD [address] [place] [phone] documented as of this encounter Visit Diagnoses Not on filedocumented in this encounter Additional Health Concerns Assessment Noted Time PHQ-9 Depression Total Score: 0 11/15/19 23 9:09 AM EDT documented as of this encounter Care Teams School Librarian Relationship Specialty Start Date End Date Virginie Monet MD [address] [place] [phone] PCP - General Family Medicine 07/30/20 documented as of this encounter
--- OUTSIDE RECORDS SUMMARY | 2025-05-11 11:29 | XMS_ITS | Encounter Summary ---
Author Organization [employer] Address [address] [facility] 7t [place] [address] Care Team Providers Care Production Scheduler Name Role Phone Virginie Monet MD Primary Care Provide r Reason for Visit * Reason Onset Date Comments Med Refill 06/04/2024 Encounter Details Date Type Department Care Team ([facility] Contact Info) Description 06/04/2024 Telephone [facility] [address] [place], [place] [phone] Virginie Monet MD [address] [place] [address] Med Refill Social History Tobacco Use Types [...] immediate release tablet To be sent to: [id number] - [place], [place] - [address] [facility] documented in this encounter Plan of Treatment Upcoming Encounters Date Type Department Care Team (Late st Contact Info) Description 05/12/2025 9:45 AM EDT Office Visit [facility] [address] [place] [phone] 06/30/2025 9:00 AM EST Office Visit [facility] [address] [place] [phone] Virginie Monet MD [address] [place] [address] documented as of this encounter Visit Diagnoses Not on filedocumented in this encounter Additional Health Concerns Assessment Noted Time PHQ-9 Depression Total Score: 15 024 11:32 AM EDT documented as of this encounter Care Teams Production Scheduler Relationship Specialty Start Date End Date Virginie Monet MD [address] [place] [address] PCP - General Family Medicine 07/30/20 documented as of this encounter
--- OUTSIDE RECORDS SUMMARY | 2025-05-11 11:29 | XMS_ITS | Clinical Summary ---
Author Organization [employer] Address [address] [facility] [address] [place] [address] Care Team Providers Care Relay Repairer Name Role Phone Virginie Monet MD [...] spray into affected nostril(s) See administration instructions. Colt 1 spray by intranasal route once; if [...] complication, without long-term current use of insulin ([facility]) Use 1 sensor every 14 days per package directions 2 each 2022 Active Continuous Blood Gluc Microgrinder Operator (FreeStyle Shane 2 [place]) deviceIndication s:Type 2 diabetes mellitus without complication, without long-term current use of insulin ([facility]) Use reader for CGM per [...] 2 2022 Active Continuous Blood Gluc Sensor (Curious Hat G7 Sensor) miscIndications: Type 2 diabetes mellitus with hyperglycemia, without long-term current use of insulin (HCC) 1 each 3 times daily. 1 each 2022 Active nicotine (Nicotrol) 10 MG inhalerIndicatio ns:Smoker Inhale 1 puff in the morning. Inhale (1 UNITS) by inhalation route 6 times every day as needed for smoking cravings. 168 each 1 2022 Active Blood Glucose Monitoring Suppl (ONE TOUCH ULTRA 2) w/Device kitIndications:T ype 2 diabetes mellitus with hyperglycemia, without long-term current use of insulin (HCC) Use to monitor blood glucose twice daily [...] DIRECTED 2023 Active Lancets (OneTouch Delica Plus [id number]) miscIndications: Type 2 diabetes mellitus with hyperglycemia, without long-term current use of insulin ([facility]) USE DIRECTED TWICE DAILY 100 each 11 2023 Active OneTouch Ultra Test test stripIndications :Type 2 diabetes mellitus with hyperglycemia, without long-term current use of insulin ([facility]) USE DIRECTED TWICE DAILY 100 [...] hyperglycemia, without long-term current use of insulin (HCC) Check blood sugar before 1 meal ( breakfast or lunch) if sugar >250-299 administer 3 units, if 300-349, administer 6 units, if >350 administer 9 units and call office. 1 each 2023 Active pen needle 31G x 5 mm miscIndications: Type 2 diabetes mellitus with hyperglycemia, without long-term current use of insulin (HCC) Use as instructed 100 each 12 05/16 Active metFORMIN (Glucophage) 500 MG tabletIndication s:Prediabetes TAKE 1 TABLET BY MOUTH TWICE DAILY WITH THE MORNING AND EVENING MEAL 180 tablet 1 2024 Active Continuous Glucose Microgrinder Operator (FreeStyle Shane 3 [place]) deviceIndication s:Type 2 diabetes mellitus with hyperglycemia, with long-term current use of insulin ([facility]) 1 each Once per day. Use as directed for CGM 1 each 2024 Active Continuous Glucose Sensor (FreeStyle Shane 3 Plus Sensor) miscIndications: Type 2 diabetes mellitus with hyperglycemia, with long-term current use of insulin ([facility]) 1 each every 15 days. Apply 1 every 15 days as directed for CGM 2 each 2024 Active glucose blood (FreeStyle Precision Arvin Test) test stripIndications :Type 2 diabetes mellitus with hyperglycemia, with long-term current use of insulin ([facility]) Use to test blood sugar 2 times daily in case of CGM failure or extremes of BG 100 each 09/30 Active insulin lispro (HumaLOG) 100 UNIT/ML injectionIndicat ions:Type 2 diabetes mellitus with hyperglycemia, without long-term current use of insulin ([facility]) ADMINISTER PER SLIDING SCALE WITH [...] hyperglycemia, without long-term current use of insulin (HCC) Inject 1 mg under the skin 1 (one) time per week. 1 each 2024 Active losartan-hydroCH LOROthiazide (Hyzaar) 50-12.5 MG tabletIndication s:Essential hypertension TAKE 1 TABLET BY MOUTH DAILY 90 tablet 1 2024 Active cyclobenzaprine (Flexeril) 10 MG tabletIndication s:Neck pain,Muscle spasm Take 1 tablet (10 mg) by mouth 3 times daily for 10 days. 30 tablet 2024 Active oxyCODONE (Roxicodone) 5 MG immediate release tabletIndication s:Chronic bilateral low back pain without sciatica Take 1 tablet (5 mg) by mouth every 8 (eight) hours if needed for severe pain for up to 28 days. 84 tablet 05/15 Active oxyCODONE (Roxicodone) 5 MG immediate release tabletIndication s:Chronic bilateral low back pain without sciatica Take 1 tablet (5 mg) by mouth every 8 (eight) hours if needed for severe pain for up to 28 days. 84 tablet 04/17 Discontinued( Reorder (will not trigger notification to [...] oxycodone 5mg Q8H PRN Indication: fibromyalgia Last QUALITY REP Agreement: 12/09/24 Tier II (QUALITY REP visits every 3 months) - last eval [...] 05/27/2024 Overview (05/27/2024): very mild Pulmonary hypertension (CMS/HCC) 05/27/2024 Right shoulder pain 05/27/2024 Spondylosis of [...] AM EDT): Dr Radha Schulz (psychiatrist) phone [phone], is now taking over of her mental health and will take over her medications for mental health Diverticular disease 09/11/2023 Epigastric hernia 09/11/2023 Osteoarthritis 09/11/2023 Assessment & Plan (10/11/2023 11:50 AM EDT): C/w PRN meds Patient will go to medical records for guidance for new COMFORT FILLER services Pain in both hands 08/27/2023 Assessment & Plan (10/11/2023 11:51 AM EDT): As above Class 2 severe obesity due t o excess calories with serious comorbidity in adult 05/29/2023 Assessment & Plan (05/16/2024 10:23 AM EDT): Discussed re weight reduction options including exercise, life style modifications, diet and referral to dispute resolution specialist. Recommended to decrease soda and sugary [...] Assessment & Plan (10/11/2023 11:52 AM EDT): COMFORT FILLER services will be requested Assessment & Plan [...] Asthma-chronic obstructive p ulmonary disease overlap syndrome (CMS/HCC) 06/16/2020 Assessment & Plan (08/27/2023 10:18 AM [...] pill count as expected Pt prefers individual QUALITY REP appointments, will schedule with Benita Mahmood RN [...] organization. Date Type Department Care Team Description 05/11/2025 Orders Only GENERIC EXTERNAL DATA DEPARTMENT Provider, Generic External Data 04/21/2025 Telephone [facility] [address] [place] [address] Virginie Monet MD Call Back Request 04/20/2025 Telephone [facility] [address] [place] [address] Virginie Monet MD Dec recall 04/17/2025 Refill [facility] [address] [place] [address] Virginie Monet MD Chronic bilateral low back pain without sciatica 04/11/2025 Refill [facility] [address] [place] [address] Virginie Monet MD Prediabetes 04/07/2025 9:45 AM EDT Office Visit [facility] [address] [place] [address] Racheal Flynn FNP Fibromyalgia (Primary Dx); Long-term current use of opiate analgesic 04/07/2025 Travel 04/01/2025 9:30 AM EDT Clinical Support [facility] [address] [place] [address] Ximena Greenwood RN Bilateral impacted cerumen [H61.23] 04/01/2025 Travel 03/26/2025 9:00 AM EDT Office Visit [facility] [address] [place] [address] Virginie Monet MD Type 2 diabetes mellitus with hyperglycemia, without long-term current use of insulin ([facility]) (Primary Dx); Type 2 diabetes mellitus without complication, without long-term current use of insulin ([facility]); Neck pain; Muscle spasm; Bilateral impacted cerumen; Dietary counseling; Exercise counseling; Class 2 severe obesity due to excess calories with serious comorbidity and body mass index (BMI) of 36.0 to 36.9 in adult ([facility]) 03/26/2025 Travel 03/25/2025 Telephone [facility] [address] [place] [address] Virginie Monet MD Chart Prep 03/20/2025 Refill [facility] [address] [place] [address] Virginie Monet MD Chronic bilateral low back pain without sciatica 03/17/2025 Patient Outreach [facility] [address] [place] [phone] Virginie Monet MD Pre-visit Planning (SDOH screening negative and tobacco screening negative) 03/15/2025 Refill [facility] [address] [place], [place] [phone] Virginie Monet MD Essential hypertension 02/19/2025 Refill [facility] [address] [place] [address] Virginie Monet MD Chronic bilateral low back pain without sciatica 02/19/2025 Refill [facility] [address] [place] [address] Virginie Monet MD Depression, unspecified depression type 02/13/2025 Telephone [facility] [address] [place], [place] [phone] Virginie Monet MD Nurse Triage 02/11/2025 Orders Only [facility] [address] [place] [address] Virginie Monet MD Type 2 diabetes mellitus with hyperglycemia, without long-term current use of insulin ([facility]) (Primary Dx) 02/11/2025 Telephone [facility] [address] [place] [address] Virginie Monet MD Nurse Triage from Last 3 Months Immunizations Immunization Administration [...] 05/12/2025 9:45 AM EDT Office Visit [facility] [address] [place] [phone] 06/30/2025 9:00 AM EST Office Visit [facility] [address] [place] [phone] Virginie Monet MD [address] [place] [address] Health Maintenance Due Date Last Done Comments [...] NOW (BRITO) Routine 05/11/2025 9:39 AM EDT NT-PROBNP Routine 05/11/2025 9:36 AM EDT HIGH SENSITIVITY TROPONIN I Routine 05/11/2025 9:36 AM EDT C-REACTIVE PROTEIN Routine 05/11/2025 9: 36 AM EDT CREATINE KINASE, TOTAL Routine 9:36 AM EDT MAGNESIUM Routine 05/11/2025 9:36 AM EDT BASIC METABOLIC PANEL Routine 05/11/2025 9:36 AM EDT HEPATIC FUNCTION PANEL Routine 9:36 AM EDT D DIMER HIGH SENSITIVITY Routine 05/11/2025 9:36 AM EDT CBC WITH AUTO DIFFERENTIAL Routine 05/11/2025 9:36 AM EDT XR CHEST 1 VIEW Routine 05/11/2025 9:30 AM EDT POCT AIMEE-14 URINE DRUG SCREEN Routine 04/07/2025 9:59 AM EDT Long-term current use of opiate analgesic MI REMOVAL IMPACTED CERUMEN IRRIGATION/LVG UNILAT Routine 04/01/2025 10:03 AM EDT Bilateral impacted cerumen [H61.23] POCT GLYCATED HEMOGLOBIN, TOTAL Routine 03/26/2025 9:08 AM EDT Type 2 diabetes mellitus without complication, without long-term current use of insulin (CMS/HCC) POCT GLUCOSE Routine 03/26/2025 9:04 AM EDT Type 2 diabetes mellitus without complication, without long-term current use of insulin (CMS/HCC) BI MAMMOGRAM SCREENING TOMOSYNTHESIS BILATERAL Routine 01/02/2025 [...] Relevant to Health Maintenance Results * (ABNORMAL) VENOUS BLOOD GAS (05/11/2025 9:40 AM EDT) VBG pH 7.38 7.32 - 7.43 [facility] Comment:METER #: [id number] additional_comment: Cb bailea VBG PCO2 51 mmHg [facility] Comment:METER #: [id number] additional_comment: Cb bailea VBG PO2 42 mmHg [facility] Comment:METER #: [id number] additional_comment: Cb bailea VBG Base Excess 4.6 mmol/L [facility] Comment:METER #: [id number] additional_comment: Cb bailea VBG HCO3 30(H) 22 - 26 mmol/L [facility] Comment:METER #: [id number] additional_comment: Cb bailea O2 Sat, Kamaljit 70.0 % [facility] Comment:METER #: [id number] additional_comment: Cb bailea 05/11/2025 9:40 AM EDT 05/11/2025 9:43 AM EDT us Generic External Data Provider LAB BLOOD ORDERAB LES Final Result [facility] [address] [place] [phone] * COVID-19 ID NOW (BRITO) (05/11/2025 9:39 AM EDT) IDNOW SERIAL# [id number] [facility] COVID-19 TEST Negative Negative [facility] COVID-19 NOTE See Note [facility] Comment: Results are for the identification of SARS-CoV2 RNA. TheSARS-CoV2 RNA is generally detectable in respiratory samplesduring the acute phase of infection. Positive results areindicative of the presence of SARS-CoV-2 RNA; clinicalcorrelation with patient history and other diagnosticinformation is necessary to determine patient infectionstatus. Positive results do not rule out bacterial infectionor co- infection with other viruses.Testing facilities within the [facility] and [facility] are required to report all positive results [...] use by authorized laboratories.Testing performed on the Edv[employer] NOW utilizing NAAT. 05/11/2025 9:39 AM EDT 05/11/2025 9:43 AM EDT vivit External Data Provider LAB MOLECULAR EVELIN GNOSTICS ORDERABLES Final Result [facility] [address] [place] [address] [phone] * D Dimer High Sensitivity (05/11/2025 9:36 AM EDT) D Dimer High Sensitivity 365 NG/ML [facility] Comment:D-DIMER HS REFERENCE RANGENote: Our assay [...] ORDERAB LES Final Result Performing Organization Address [facility] de Phone Number [facility] [address] [place] [phone] * High Sensitivity Troponin I (05/11/2025 9:36 AM EDT) TROPONIN I HIGH SENSITIVITY <2.7 <3.5 - 17.0 ng/L [facility] Comment:The Brito high sens itivity Troponin-I results should beused in conjunction with other diagnostic information suchas ECG, clinical observations and information, and patientsymptoms to aid in the diagnosis of MD. 05/11/2025 9:36 AM EDT 05/11/2025 9:41 AM EDT us vivit External Data Provider LAB BLOOD ORDERAB LES Final Result Performing Organization Address [facility] Number [facility] [address] [place] [phone] * NT-proBNP (05/11/2025 9:36 AM EDT) NT-proBNP 138.1 <300 pg/mL [facility] Comment:Reference Range:Age Group (years) NT-proBNP (pg/ml) InterpretationAll <300 Negative: HF unlikelyFor patients presenting to the ED with clinical suspicion ofnew onset or worsening HF, see below:18 to <50 >299.9 to <450.0 Grayzone: [id number] to 75 >299.9 to <900.0 other causes of>75 >299.9 to <1800.0 NT-proBNP [id number] to <50 >449.9 Positive: HF [id number] >899.9>75 >1799.9Note: Elevated NT-proBNP levels should be interpreted inthe context of other clinical information. 05/11/2025 9:36 AM EDT 05/11/2025 9:41 AM EDT us Generic External Data Provider LAB BLOOD ORDERAB LES Final Result [facility] [address] [place] [phone] [phone] * (ABNORMAL) CBC auto differential (05/11/2025 9:36 AM EDT) White Blood Count 6.5 4.8 - 10.8 X10*3/uL [facility] Red Blood Count 4.97 4.20 - 5.50 X10*6/uL [facility] Hemoglobin 13.1 12.0 - 16.0 g/dl [facility] Hematocrit 39.8 37.0 - 47.0 % [facility] Mean Corpuscular Volume 80.1 80.0 - 98.0 fL [facility] Mean Corpuscular Hemoglobin 26.4(L) 27.0 - 33.0 pg [facility] Mean Corpuscular HGB Conc 32.9 31.0 - 35.0 g/dl [facility] Red Cell Distribution Width 14.2 11.0 - 16.0 % [facility] Platelet Count 315 160 - 400 X10*3/uL [facility] Mean Platelet Volume 9.2(L) 9.4 - 12.3 fL [facility] Neutrophils Percent Auto 58.0 45 - 73 % [facility] Imm Gran Pct Auto 0.3 0.0 - 0.4 % [facility] Lymphocytes Percent Auto 31.5 20 - 40 % [facility] Monocytes Percent Auto 7.7 2 - 11 % [facility] Eosinophils Percent Auto 2.2 0 - 4 % [facility] Basophils Percent Auto 0.3 0 - 2 % [facility] NRBC Pct Auto 0.0 0.0 - 0.2 /100WBC [facility] Neutrophils Absolute Auto 3.8 2.0 - 8.3 x10*3/uL [facility] Imm Gran Abs Auto 0.02 0.00 - 0.03 X10*3/uL [facility] Lymphocytes Absolute Auto 2.0 1.2 - 4.9 X10*3/uL [facility] Monocytes Absolute Auto 0.5 0.1 - 1.2 X10*3/uL [facility] Eosinophils Absolute Auto 0.1 0.0 - 0.4 X10*3/uL [facility] Basophils Absolute Auto 0.0 0.0 - 0.2 X10*3/uL [facility] NRBC Abs Auto 0.000 0.0 - 0.012 X10*3/uL [facility] 05/11/2025 9:36 AM EDT 05/11/2025 9:41 AM EDT us Generic External Data Provider LAB BLOOD ORDERAB LES Final Result Performing Organization Address [facility] Co de Phone Number [facility] [address] [place] [phone] * (ABNORMAL) C-reactive Protein (05/11/2025 9:36 AM EDT) C Reactive Protein 1.97(H) < or = 0.50 mg/dL [facility] 05/11/2025 9:36 AM EDT 05/11/2025 9:41 AM EDT Generic External Data Provider LAB BLOOD ORDERAB LES Final Result Performing Organization Address [facility] Co de Phone Number [facility] [address] [place] [phone] * Magnesium (05/11/2025 9:36 AM EDT) Magnesium 1.8 1.6 - 2.6 mg/dL [facility] 05/11/2025 9:36 AM EDT 05/11/2025 9:41 AM EDT us Generic External Data Provider LAB BLOOD ORDERAB LES Final Result Performing Organization Address [facility] Co de Phone Number [facility] [address] [place] [phone] * (ABNORMAL) Creatine Kinase, Total (05/11/2025 9:36 AM EDT) Pathologist [facility] Creatine Kinase Total 25(L) 26 - 140 U/L [facility] 05/11/2025 9:36 AM EDT 05/11/2025 9:41 AM EDT Generic External Data Provider LAB BLOOD ORDERAB LES Final Result Performing Organization Address [facility] de Phone Number [facility] [address] [place] [phone] * Hepatic Function Panel (05/11/2025 9:36 AM EDT) [facility] Bilirubin, Total 0.4 0.0 - 1.0 mg/dL [facility] Bilirubin, Direct 0.2 0.0 - 0.5 mg/dL [facility] Aspartate Amino Transferase 21 5 - 31 U/L [facility] Alanine Aminotransferase 25 0 - 31 U/L [facility] Total Protein 7.4 6.5 - 8.0 g/dL [facility] Albumin Level 4.1 3.5 - 5.0 g/dL [facility] Alkaline Phosphatase 102 39 - 117 U/L [facility] 05/11/2025 9:36 AM EDT 05/11/2025 9:41 AM EDT vivit External Data Provider LAB BLOOD ORDERAB LES Final Result Performing Organization Address [facility] de Phone Number [facility] [address] [place] [phone] * (ABNORMAL) Basic Metabolic Panel (05/11/2025 9:36 AM EDT) [facility] Sodium 141 135 - 145 mmol/L [facility] Potassium 3.8 3.3 - 5.1 mmol/L [facility] Chloride 108 96 - 108 mmol/L [facility] Carbon Dioxide 25 22 - 29 mmol/L [facility] Anion Gap 12 12 - 20 [facility] Urea Nitrogen (BUN) 12 9 - 16 mg/dL [facility] Creatinine, Serum 0.62 0.5 - 1.4 mg/dL [facility] Creatinine Clr Calc Pharmacy 105.1 [facility] Comment:Provided height and weight: 170.18 cm,77.9 kg.eGFR (calculated from the MDRD study equation) and eCrCl(calculated from the Cockcroft-Gault equation) are based ondifferent parameters and may not yield comparable results.If eCrCl result is absurd, please check patient'sheight/weight. Estimated Glomerular Filt Rate >60 [facility] Comment:Chronic Kidney Disea se: Estimated GFR < 60 mL/min/1.21s8Pbhwmq Kidney Disease: Estimated GFR < 15 mL/min/1.73m2 Glucose 147(H) 60 - 115 mg/dL [facility] Calcium 10.0 8.4 - 10.2 mg/dL [facility] 05/11/2025 9:36 AM EDT 05/11/2025 9:41 AM EDT us Generic External Data Provider LAB BLOOD ORDERAB LES Final Result Performing Organization Address City/State/[facility] Co de Phone Number [facility] [address] [place] [phone] * XR Chest 1 View (05/11/2025 9:30 AM EDT) Anatomical Region Laterality Modality Chest Radiographic Zora ging 05/11/2025 9:30 AM EDT Narrative 05/11/2025 9:47 AM EDT [address] [address] XRay Report Signed Patient: Virginie Martins MR#: [id number] [birth year] : 1965 Acct:[id number] Age/Sex: 59 / F ADM Date: 05/11/25 Loc: HO.ED Attending Dr: Ordering Physician: Elaina Hull DO Date of Service: 05/11/25 Procedure(s): XR chest 1V Accession Number(s): [id number] cc: Virginie Monet MD; Elaina Hull DO [...] signed by Charles Charlton MD in OV> 05/11/2544 DD/ 9 TD/TT: 05/11/25933 [employer] Technician: ANTONIO Procedure Note Donotuseinterpreter, Image - 05/11/2025 [place] [address] XRay Report Signed Patient: Virginie Martins AMR#: [id number] 07 : 1965Acct:[id number] Age/Sex: 59 / FADM Date: 05/11/25 Loc: HO.ED Attending Dr: Ordering Physician: Elaina Hull DO Date of Service: 05/11/25 Procedure(s): XR chest 1V Accession Number(s): [id number] cc: Virginie Monet MD; Elaina Hull DO [...] in OV> 05/11/25943 DD/ 9 TD/TT: 05/11/25933 [employer]quis[employer] Technician: ANTONIO [facility] External Provider IMG XR PROCEDURES Edited Result - Final * POCT AIMEE-14 Urine Drug Screen (04/07/2025 [...] - 04/07/2025 9:59 AM EDT UTOX cup Lot#[id number] Exp. 04/21/26 Internal Pass Control Rachealsadiq Flynn SUPERINTENDENT CONSTRUCTION POINT OF CARE TEST ENTER/EDIT ORDERABLES Final Result * MI REMOVAL IMPACTED CERUMEN IRRIGATION/LVG UNILAT (04/01/2025 10:03 [...] and TM perforation Alternatives discussed: Delayed treatment [place] protocol: Procedure explained and questions answered to [...] clear Hearing quality: Improved Procedure completion: Tolerated Reuben Agarwal MD IN CLINIC/BEDSIDE ORDERA BLES Final Result * (ABNORMAL) POCT Hgb A1c (03/26/2025 9:08 AM EDT) Hemoglobin A1C 6.2(A) 4.0 - 5.7 % QC Media Lot # [id number] Lot# Expiration Date Blood 03/26/2025 9:08 AM EDT Virginie Lopez [...] AM EDT Narrative 01/07/2025 3:10 PM EDT [address] [place] [address] Mammography Report Signed Patient: Virginie Martins MR#: [id number] 07 : 1965 Acct:[id number] Age/Sex: 59 / F ADM Date: 01/02/25 Loc: HO.MAMMO Attending Dr: Virginie Lopez MD Ordering Physician: Virginie Monet MD Results: 1Negative Date of Service: 01/02/25 Follow Up: 1 Year From Orig inal Mammogram Procedure(s): MM tomosynthesis screening BI Accession Number(s): [id number] cc: Virginie Monet MD EXAMINATION: MM SCREENING [...] 01/07/2025 03:07 PM EDT Dictated By: Nyla Yu DO Signed By: <Electronically signed by Nyla Yu DO in OV> 01/07/25 1507 DD/ 0735 TD/TT: 01/02/25 0756 [employer] Technician: Procedure Note Donotuseinterpreter, Image - 01/07/[address] [place] [address] Mammography Report Signed Patient: Virginie Martins AMR#: [id number] 07 : 1965Acct:[id number] Age/Sex: 59 / FADM Date: 01/02/25 Loc: HO.MAMMO Attending Dr: Virginie Lopez MD Ordering Physician: Virginie Monet MDResults: 1Negative Date of Service: 01/02/25Follow Up: 1 Year From Orig ina Mammogram Procedure(s): MM tomosynthesis screening BI Accession Number(s): [id number] cc: Virginie Monet MD EXAMINATION: MM SCREENING [...] 01/07/2025 03:07 PM EDT Dictated By: Nyla Yu DO Signed By: <Electronically signed by Nyla Yu DO in OV> 01/07/25 1507 DD/ 0735 TD/TT: 01/02/25 0756 [employer] Technician: us Virginie Lopez MD IMG BI PROCEDURES Fin al Result * Lipid Panel with Reflex to Direct LDL (04/22/2024 9:30 AM EDT) Triglycerides 149 <150 mg/dL [facility] Comment:Desirable Triglyceri de: less than 150 mg/dLBorderline High Triglyceride 150-199 mg/dLHigh Triglyceride: 200-499 mg/dLVery High Triglyceride: greater than or equal to 5OO mg/dL Cholesterol 154 <200 mg/dL [facility] Comment:Desirable Cholestero l: less than 200 mg/dLBorderline High Cholesterol: 200-239 mg/dLHigh Cholesterol: greater than 239 mg/dL LDL Cholesterol Calculated 79 <100 mg/dL [facility] Comment:Desirable LDL: less than 100 mg/dLNear Optimal/Above Optimal LDL: 110- 129 mg/dLBorderline High LDL: 130-159 mg/dLHigh LDL: 160-189 mg/dLVery High LDL: greater than or equal to 190 mg/dL HDL Cholesterol 46 >40 mg/dL [facility] Comment:Desirable HDL: great er than 40 mg/dL Note: This HDL assay may give artificially low results in patients with liver disease. Blood 04/22/2024 9:30 AM EDT 04/22/2024 11:35 AM EDT us Virginie Lopez MD LAB BLOOD ORDERABLES Final Result [facility] [address] [place] [address] [phone] * Hepatitis C Viral RNA, Quantitative, Real-Time PCR (04/22/2024 9:30 AM EDT) Hepatitis C Viral Load <15 NOT DETECTED NOT DETECTED IU/mL [facility] HCV Log PCR <1.18 NOT DETECTED NOT DETECTED Log IU/mL [facility] Comment:For additional infor mation, please refer tohttp://education.Allegiance/faq/UXM73l9(This link is being provided for informational/educational purposes only.)THIS TEST WAS PERFORMED AT:[facility] [place] [phone] PERRY MD Blood 04/22/2024 9:30 AM EDT 04/22/2024 11:35 AM EDT us Virginie Lopez MD LAB BLOOD ORDERABLES Final Result Performing Organization Address [facility] Co de Phone Number [facility] [address] [place] [phone] * Albumin, Random Urine W/Creatinine (04/22/2024 9:30 AM EDT) Creatinine, Urine 193.55 mg/dL [facility] Microalbumin Urine 16.0 mg/L [facility] Microalbum Creatinine Ratio Ur 8.2 <30 ug/mg cr [facility] Comment:Albumin/Creatinine R atio Reference Ranges: Normal: < 30 ug/mg creatinine Microalbuminuria: 30 - 300 ug/mg creatinineClinical Albuminuria: > 300 ug/mg creatinine Urine (Urine, Random) 04/22/2024 9:30 AM EDT 04/22/2024 11:23 AM EDT us Virginie Lopez MD LAB URINE ORDERABLES Final Result Performing Organization Address [facility] de Phone Number [facility] [address] [place] [phone] * HIV-1/2 Antigen and Antibodies, Fourth Generation, with Reflexes (04/22/2024 9:30 AM EDT) HIV AB/AG Nonreactive Nonreactive [facility] Comment:HIV-1 p24 Ag and/or HIV-1/HIV-2 Ab not detected.A test result that is nonreactive does not exclude thepossibility of exposure to or infection with HIV-1 and/orHIV-2. Nonreactive results in this assay for individualswith prior exposure to HIV-1 and/or HIV-2 may be due toantigen and antibody levels that are below the limit ofdetection of this assay.The [employer] HIV Ag/Ab Combo assay result andsupplemental assay [...] Performing Organization Address [facility] Co de Phone Number [facility] [address] [place] [phone] * HPV mRNA E6/E7 (02/27/2018 3:34 PM EDT) HPV mRNA E6/E7 Not Detected NOT DETECTED [facility] Comment: This test was performed using the APTIMA(R) HPV Assay ([employer] This assay detects E6/E7 viral messenger RNA (mRNA) from 14 high-risk HPV types (16,18,31,33,35,39,45,51, 52,56,58,59,66,68). For additional information please refer to: http://education.Allegiance/faq/UEN074c1 (This link is being provided for informational/ educational purposes only.) The analytical performance characteristics of this assay have been determined by [employer] [place], [place]. The modifications have not been cleared or approved by the FDA. This assay has been validated pursuant to the CLIA regulations and is used for clinical purposes. Test Performed by [facility], [employer] [facility], [address] [place] [address] Adriel Barclay M.D., Ph.D., Director of Laboratories , CLIA [id number] Please note: Effective 03/27/2016, HPV testing will be performed using [employer]'s APTIMA test which targets mRNA. Detecting mRNA instead of DNA, as in older methods, offers significant improvements in specificity. 02/27/2018 3:34 PM EDT us Ela Kern CNM HISTORICAL/NON ORDERABLE LABS Final Result [facility] [address] * Pap Smear (02/27/2018 12:00 AM EDT) Swab Ela Kern CNM LAB CYTOLOGY ORDERABLES F inal Result [facility] [address] [place] [phone] * Colonoscopy (01/31/2017) Colonoscopy Normal Normal Narrative Ashley Recio - 01/31/2017 Repeat colonoscopy in 10 years . Results are in [facility] 01/31/2017 Historical Provider MD HEALTH MAINTENANCE Final Result from Last 3 Months or Most Recently Relevant to Health Maintenance Insurance [facility] STANDARD [facility] ONE CARE < 65 Care Teams Relay Repairer Relationship Specialty Start Date End Date Virginie Monet MD [address] [place] [phone] PCP - General Family Medicine 07/30/20
--- OUTSIDE RECORDS SUMMARY | 2025-05-11 11:29 | XMS_ITS | Encounter Summary ---
Author Organization [employer] Address [address] [facility] 7t [place] [address] Care Team Providers Care Robotics Software Engineer Name Role Phone Virginie Monet MD Primary Care Provide r Reason for Visit * Reason Onset Date Comments Appointment Request 06/25/2023 Encounter Details Date Type Department Care Team ([facility] Contact Info) Description 06/25/2023 Telephone [facility] MEDICINE [address] [place], [place] [phone] Virginie Monet MD [address] [place] [phone] Appointment Request Social History Tobacco Use Types [...] annoyed or irritable 1 06/15 9:28 AM Bneita Abbott RN Feeling afraid as if somethi ng awful might happen 0 06/27/2023 9:28 AM Benita Abbott RN CHADWICK-7 Total Score 9 06/27/2023 9:28 AM Benita Abbott RN documented as of this encounter Miscellaneous Notes * Telephone Encounter - Chicho Raman - 06/25/2023 9:57 AM EST Tc from patient requesting a call back to r/s appt on 06/25 scientific writer did cancel appt per patient request documented in this encounter Plan of Treatment Upcoming Encounters Date Type Department Care Team (Late st Contact Info) Description 05/12/2025 9:45 AM EDT Office Visit [facility] MEDICINE [address] [place] [phone] 06/30/2025 9:00 AM EST Office Visit [address] [phone] Virgniie Monet MD [address] [place] [phone] documented as of this encounter Visit Diagnoses Not on filedocumented in this encounter Additional Health Concerns Assessment Noted Time PHQ-9 Depression Total Score: 0 05/29/20 23 2:13 PM EST documented as of this encounter Care Teams Robotics Software Engineer Relationship Specialty Start Date End Date Virginie Monet MD [address] [place] [phone] PCP - General Family Medicine 07/30/20 documented as of this encounter
--- OUTSIDE RECORDS SUMMARY | 2025-05-11 11:29 | XMS_ITS | Encounter Summary ---
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 Contact pt at [phone] documented in this encounter Plan of Treatment Upcoming Encounters Date Type Department Care Team (Late st Contact Info) Description 05/12/2025 9:45 AM EDT Office Visit [facility] MEDICINE [address] [place] [phone] 06/30/2025 9:00 AM EST Office Visit [facility] MEDICINE [address] [place] [phone] Virginie Monet MD [address] [place] [address] documented as of this encounter Visit Diagnoses Not on filedocumented in this encounter Additional Health Concerns Assessment Noted Time PHQ-9 Depression Total Score: 0 09/17/19 10:52 AM EST documented as of this encounter Care Teams Account Specialist Relationship Specialty Start Date End Date Virginie Monet MD [address] [place] [phone] PCP - General Family Medicine 07/30/20 documented as of this encounter
--- OUTSIDE RECORDS SUMMARY | 2025-05-11 11:29 | XMS_ITS | Encounter Summary ---
Author Organization [employer] Address [address] [facility] 7t [place] [address] Care Team Providers Care Data Consultant Name Role Phone Virginie Monet MD Primary Care Provide r Reason for Visit * Reason Comments Med Refill Encounter Details Date Type Department Care Team ([facility] st Contact Info) Description 02/19/2025 Refill [facility] MEDICINE [address] [place], [place] [phone] Virginie Monet MD [address] [place] [phone] Depression, unspecified depression type Social History Tobacco [...] Description 05/12/2025 9:45 AM EDT Office Visit [facility] MEDICINE [address] [place] [phone] 06/30/2025 9:00 AM EST Office Visit [facility] MED[facility] [address] [place] [phone] Virginie Monet MD [address] [place] [phone] documented as of this encounter Visit Diagnoses Diagnosis Depression, unspecified depression type documented in this encounter Additional Health Concerns Assessment Noted Time PHQ-9 Depression Total Score: 0 09/17/19 25 10:52 AM EST documented as of this encounter Care Teams Data Consultant Relationship Specialty Start Date End Date Virginie Monet MD [address] [place] [phone] PCP - General Family Medicine 07/30/20 documented as of this encounter
--- OUTSIDE RECORDS SUMMARY | 2025-05-11 11:29 | XMS_ITS | Encounter Summary ---
Author Organization [employer] Address [address] 7t [place] [address] Care Team Providers Care Camera Prototyping Engineer Name Role Phone Virginie Monet MD Primary Care Provide r Encounter Details Date Type Department Care Team ([facility] Contact Info) Description 05/19/2024 Orders Only [facility] [address] [place] [address] Virginie Monet MD [address] [place] [address] Social History Tobacco Use Types Packs/Day Years [...] 05/12/2025 9:45 AM EDT Office Visit [facility] [address] [place] [phone] 06/30/2025 9:00 AM EST Office Visit [address] [phone] Virginie Monet MD [address] [place] [phone] documented as of this encounter Visit Diagnoses Not on filedocumented in this encounter Additional Health Concerns Assessment Noted Time PHQ-9 Depression Total Score: 15 024 11:32 AM EDT documented as of this encounter Care Teams Camera Prototyping Engineer Relationship Specialty Start Date End Date Virginie Monet MD [address] [place] [phone] PCP - General Family Medicine 07/30/20 documented as of this encounter
--- OUTSIDE RECORDS SUMMARY | 2025-05-11 11:29 | XMS_ITS | Clinical Summary ---
Author Organization [facility] ity Address [address] [place] [address] Care Team Providers Care Glue Spreading Machine Operator Name Role Phone Unavailable Primary [...]
[2025-05-11 12:28] LABS: Troponin-I High Sensitivity < 2.7 ng/L (<3.5-17.0)
--- NOTE | 2025-05-11 14:57 | PM.IMHP ---
History of Present Illness Date of Service: 05/11/25 Chief Complaint: chest pain 59F PMH bipolar, hypothyroid, hypertension, DM, family history of CAD, presented wiht chest pain. Chest pain began 3 days prior to presentation. Is constant, 8/10, midsternal radiates to upper left shoulder. Somewhat positional. Associated with shortness of breath worse on exertion. Relieved minimally by nitroglycerin. Denies diaphoresis, nausea, vomiting, fever, chills. She has had a cough with some brown sputum. In ED EKG negative for ischemia, troponin negative. Review of Systems Review of Systems: Yes all other systems are reviewed and are negative [facility] Medical History Migraine without aura BOY on CPAP RLS (restless legs syndrome) Coronary artery disease Nicotine dependence, cigarettes, uncomplicated Pulmonary hypertension Dyspnea Vitamin D deficiency Mixed irritable bowel syndrome Michael's thyroiditis Fibromyalgia Type 2 diabetes mellitus Obesity (BMI 30-39.9) Hypothyroidism BOY (obstructive sleep apnea) Hypertension Pulmonary nodules Asthma-COPD overlap syndrome Family History Father Myocardial infarction Hypertension Diabetes CVD (cardiovascular disease) Mother Restless leg syndrome Diabetes Paternal Aunt Breast cancer Uterine cancer Surgical History History of colon resection History of cholecystectomy History of colonoscopy History of esophagogastroduodenoscopy (EGD) History of lithotripsy History of surgery on right wrist History of excision of mass (09/28/21) History of elbow surgery Status post tendon repair Status post trigger finger release H/O hand surgery H/O excision of ganglion cyst H/O arthroscopy of right knee Social History Are you a primary geriatric care manager to a significant other at home: No Do you presently have visiting nurse or other home services: Yes ([employer] 3 x week, 2 hours) Alcohol intake: former Patient Tobacco Use Status: Current everyday Tobacco user Tobacco use type: Cigarette Cigarettes Per Day: 6 Years Smoked: (onset 18yo, 1/2-1ppd x 41yrs, now 1/4ppd - 30pyh) Smoked in Last 30 Days: Yes Use of substances other than those prescribed or required for medical reasons: No Advance Directives: No Advance Directives Information Provided: Yes Do you have a plan to hurt others: No Plan Meds Allergies Allergy/AdvReac Type Severity Reaction Status Date / Time adhesive tape Allergy Severe BLISTERS Verified 05/11/25 09:22 Tetanus Vaccines and Toxoid Allergy Intermediate SWELLING, Verified 05/11/25 09:22 (TETANUS VACCINES & TOXOID) REDNESS surgical tape Allergy Severe hives/boils Uncoded 04/09/25 09:08 Active Medications: Current Medications Acetaminophen (Acetaminophen 325 Mg Tablet) 650 mg PO Q6H PRN PRN Reason: Pain, Mild 1-3,fever,headache Calcium Carbonate (Calcium Carbonate 750 Mg Tab.Chew) 750 mg PO Q4H PRN PRN Reason: Heartburn Magnesium Hydroxide (Milk Of Magnesia 30 Ml Oral.Susp) 30 ml PO DAILY PRN PRN Reason: Constipation Melatonin (Melatonin 3 Mg Tablet) 6 mg PO BEDTIME PRN PRN Reason: Insomnia Sodium Chloride (0.9 % Sodium Chloride Flush 3 Ml Syringe) 3 ml IVFLUSH [facility] Medications ?Medication ?Instructions ?Recorded ?Confirmed ?Last Taken ?Type duloxetine 60 mg capsule,delayed 60 mg PO DAILY 08/18/21 04/09/25 09/21/24 History release ropinirole 3 mg tablet 3 mg PO BEDTIME 10/06/21 04/09/25 09/21/24 History amitriptyline 75 mg tablet 75 mg PO BEDTIME 11/28/21 04/09/25 09/21/24 History omeprazole 20 mg capsule,delayed 20 mg PO BID 11/28/21 04/09/25 09/21/24 History release aripiprazole 2 mg tablet 2 mg PO DAILY 02/16/22 04/09/25 09/21/24 History nebulizers 10/27/22 04/09/25 09/21/24 History nebulizers 10/12/23 04/09/25 09/21/24 History fluticasone fur. 200 mcg-umeclid 1 ea inhalation DAILY 05/11/25 05/11/25 Unknown History 62.5 mcg-vilant 25 mcg inhalat.powder (Trelegy Ellipta) hydroxyzine HCl 25 mg tablet 25 mg PO TID PRN Anxiety 05/11/25 Unknown History insulin lispro 100 unit/mL subcut 05/11/25 Unknown History subcutaneous pen levothyroxine 125 mcg tablet 125 mcg PO DAILY@0600 05/11/25 Unknown History losartan 50 mg-hydrochlorothiazide 1 tab PO DAILY 05/11/25 Unknown History 12.5 mg tablet metformin 500 mg tablet 500 mg PO BIDWM 05/11/25 Unknown History semaglutide 1 mg/dose (4 mg/3 mL) 1 mg subcut QWEEK 05/11/25 Unknown History subcutaneous pen injector (Ozempic) Physical Exam Vital Signs and Narrative: Vital Signs: Last Vital Signs Temp 98.2 F 05/11/25 14:32 Pulse 88 05/11/25 14:32 Resp 20 05/11/25 14:32 BP 115/41 L 05/11/25 14:32 Pulse Ox 95 05/11/25 14:32 O2 Del Method Room Air 05/11/25 14:32 BMI result Body Mass Index 26.9 General: AO X 3, no acute distress Resp: CTA bilateral, no accessory muscles used CVS: S1,S2,RRR GI: soft, non tender, non distended Neuro: motor grossly intact, alert Psych: appropriate affect, appropriate insight Results Labs 05/11/25 09:36 05/11/25 09:36 Labs: Laboratory Results - last 24 hr 05/11/25 05/11/25 05/11/25 09:36 09:39 09:40 MCV 80.1 MCH 26.4 L MCHC 32.9 RDW 14.2 Plt Count 315 MPV 9.2 L Immature Gran % (Auto) 0.3 Neut % (Auto) 58.0 Lymph % (Auto) 31.5 [place] % (Auto) 7.7 Eos % (Auto) 2.2 Baso % (Auto) 0.3 Lymph # (Auto) 2.0 [place] # (Auto) 0.5 Eos # (Auto) 0.1 Baso # (Auto) 0.0 Abs Immat Gran (auto) 0.02 Absolute Neuts (auto) 3.8 Absolute Nucleated RBC 0.000 Nucleated RBC % (auto) 0.0 D-Dimer High Sensitivty 365 VBG pH 7.38 VBG pCO2 51 VBG pO2 42 VBG HCO3 30 H VBG O2 Saturation 70.0 VBG Base Excess 4.6 Anion Gap 12 Estim Creat Clear Calc 105.1 Estimated GFR > 60 Random Glucose 147 H Calcium 10.0 Magnesium 1.8 Total Bilirubin 0.4 Direct Bilirubin 0.2 AST 21 ALT 25 Alkaline Phosphatase 102 Total Creatine Kinase 25 L Troponin I High Sens < 2.7 C-Reactive Protein 1.97 H NT-Pro-B Natriuret Pep 138.1 Total Protein 7.4 Albumin 4.1 COVID-19 (SHAHAB) Negative COVID-19 Clin Com See Note 05/11/25 12:00 MCV MCH MCHC RDW Plt Count MPV Immature Gran % (Auto) Neut % (Auto) Lymph % (Auto) [place] % (Auto) Eos % (Auto) Baso % (Auto) Lymph # (Auto) [place] # (Auto) Eos # (Auto) Baso # (Auto) Abs Immat Gran (auto) Absolute Neuts (auto) Absolute Nucleated RBC Nucleated RBC % (auto) D-Dimer High Sensitivty VBG pH VBG pCO2 VBG pO2 VBG HCO3 VBG O2 Saturation VBG Base Excess Anion Gap Estim Creat Clear Calc Estimated GFR Random Glucose Calcium Magnesium Total Bilirubin Direct Bilirubin AST ALT Alkaline Phosphatase Total Creatine Kinase Troponin I High Sens < 2.7 C-Reactive Protein NT-Pro-B Natriuret Pep Total Protein Albumin COVID-19 ([facility]AHAB) COVID-19 Clin Com Imaging Radiologist's Impressions: Impressions Chest X-Ray 05/11/25 09:30 IMPRESSION: No evidence of acute findings. Electronically signed by: Charles Charlton MD 05/11/2025 09:44 AM EDT Chest CTA 05/11/25 11:03 IMPRESSION: 1. Limited examination due to patient motion. No definite evidence of pulmonary emboli. 2. Scattered subcentimeter bilateral pulmonary nodules without significant change. 3. Borderline mediastinal and hilar lymph nodes as described. Continued follow-up is recommended. Electronically signed by: Rodney Prajapati MD 05/11/2025 11:34 AM EDT RP Assessment and Plan (1) Chest pain: Qualifiers: Chest pain type: precordial pain Qualified Code(s): R07.2 - Precordial pain Status: Acute Plan 59F PMH bipolar, hypothyroid, hypertension, DM, family history of CAD, presented wiht chest pain Chest pain Rule out coronary artery disease Cardio eval, echo, monitor troponin Bipolar Continue mood stabilizer Hypothyroid Levothyroxine Diabetes Insulin sliding scale DVT prophylaxis with Lovenox Full code Quality Stroke Does the patient have a stroke diagnosis?: No VTE Prior VTE?: No VTE Risk Level:: Medical - moderate - high VTE Device Contraindication: Treatment Not Indicated VTE Drug Contraindication: N/A - Med Ordered
--- NOTE | 2025-05-11 15:00 | CA_ITS ---
Transthoracic Echocardiogram Patient (Last, First, Middle): Virginie Martins A Gender: Female Date of : 1965 Age: 59 Procedure Date: 05/11/2025 Procedure Type: Transthoracic Echocardiogram Location: ER Height: 170.18 cm Weight: 77.57 kg BSA: 1.89 m2 Heart Rate: 92 bpm BP: 115 / 41 mmHg Pmp Certified Project Manager: LIZETH Referring MD: Chico Bledsoe MD Symptoms: chest pain Study Quality: Adequate ECG Rhythm: Sinus Conclusions: - The left ventricular systolic function is normal. The calculated ejection fraction is 63% by biplane method. - No obvious valvular pathology seen on this study. Findings Left Ventricle Normal left ventricular cavity size. There is normal left ventricular wall thickness. The left ventricular systolic function is normal. The calculated ejection fraction is 63% by biplane method. There is no evidence of regional wall motion abnormalities. Diastolic function is normal for age. Right Ventricle Normal right ventricular cavity size and systolic function. Atria The left atrium is mildly dilated. The right atrium is normal in size. Aortic Valve There is a normal trileaflet aortic valve. There is no aortic valve stenosis. There is no aortic valve regurgitation. Mitral Valve The mitral valve appears normal. There is trace mitral valve regurgitation. There is no mitral valve stenosis. Pulmonic Valve The pulmonic valve is likely normal. Tricuspid Valve There is trace tricuspid valve regurgitation. There is no evidence of pulmonary hypertension. Great Vessels The asc aorta and aortic arch are normal in size. Venous The inferior vena cava is normal in size and collapses greater than 50% with inspiration. Pericardium/Pleural There is no evidence of pericardial effusion. Prior Study Comparison No significant change compared to prior study dated: 06/04/2020. Recommendations, Care & Conclusions No obvious valvular pathology seen on this study. Measurements 2D Linear Measurements IVSd: 0.91 0.6-0.9/0.6-1.0 cm LVIDd: 4.76 3.9-5.3/4.2-5.9 cm LVIDd Index: 2.52 2.4-3.2/2.2-3.1 cm/m2 LVIDs: 3.06 2.0-3.6 cm LVPWd: 1.07 0.7-1.1 cm LA Diam: 3.20 2.7-3.8/3.0-4.0 cm LAIDs Index: 1.69 1.5-2.3 cm/m2 LV Mass: 205.84 67-162/88-224 g LV Mass Index: 108.91 43-95/49-115 g/m2 LVOT Diam: 1.90 3.0+(-)1.3 cm 2D Systolic Function EF 4C: 61.30 >55% EF 2C: 65.60 >55% EF BiP: 62.50 >55% Mitral Valve MV Pk E: 1.19 MV PK A: 1.24 MV Decel Time: 276.00 E/A: 1.00 E'Lateral: 12.80 E'Medial: 11.60 E/E' Med: 10.30 E/E' Lat: 9.30 PHT: 81.00 MVA PHT: 2.72 Decel Karnes: 4.30 Aortic Valve AoV Pk Benito: 2.26 AoV Mn Benito: 1.39 AoV VTI: 0.37 AoV Pk Grad: 20.00 Aov Mn Grad: 9.00 LYNSEY Cont.VTI: 2.28 LVOT LVOT Pk Benito: 1.74 LVOT Mn Benito: 1.09 LVOT VTI: 0.29 LVOT Pk Grad: 12.00 LVOT Mn Grad: 6.00 LVOT Diam: 1.90 LVOT Area: 2.84 Diastolic Function MV Pk E: 1.19 MV Pk A: 1.24 E/A: 1.00 E'Medial: 11.60 E/E' Med: 10.30 E' Laterial: 12.80 E/E' Lat: 9.30 Right Ventricle TAPSE (mm): 31.30 TVS' Benito: 14.30 Tricuspid Valve RA Press: 3.00 Great Vessels Aorta Sinus of Valsalva: 3.00 2.0-3.5 cm Ao Asc: 2.90 2.1-3.4 cm Ao Arch: 2.70 Pulmonary Valve PV Pk Benito: 1.52 Peak PV Grad: 9.00 Updated in Other Vendor System with Status of Final Aníbal Sparks MD electronically signed on 05/12/2025 12:07:18 PM with status of Final
--- NOTE | 2025-05-11 18:17 | PHA.MEDREC ---
Addendum entered by Adriano Crowder PharmD 05/11/25 18:23: reviewed Original Note: Pharmacy Consult ? Medication Reconciliation Pharmacy has completed the medication reconciliation. Patient was able to confirm all of her medications. patient confirmed Insulin Lispro is per sliding scale TID, Ozempic 1 mg every Sunday, last dose 05/03/25. Patient states she is still taking Atorvastatin 40 mg , however there is no claim history. Aripiprazole 2 mg was last filled 02/16/25 for 30 days and Amitriptyline 75 mg , last fill date was 12/26/24 for 60 days. Patient states she had all her morning medications today.
[2025-05-11 18:36] LABS: Glucose, Whole Blood 129 mg/dL (60-115)
[2025-05-11 20:10] LABS: Glucose, Whole Blood 161 mg/dL (60-115)
[2025-05-11] MEDS: Milk of Magnesia 30 ML ORAL.SUSP PO (21:05)
[2025-05-11] MEDS: oxyCODONE HCl Immed Release 5 MG TABLET PO (21:09)
[2025-05-11] MEDS: Nicotine 7 MG PATCH.TD24 TRANSDERMA (21:16)
[2025-05-11] MEDS: 0.9 % Sodium Chloride Flush 3 ML SYRINGE IVFLUSH (21:20)
[2025-05-12 04:00] VITALS: BP 115/53; PULSE 83; RESP 16; TEMP 36.9; O2SAT 97
[2025-05-12 07:52] LABS: Glucose, Whole Blood 138 mg/dL (60-115)
[2025-05-12 08:00] VITALS: BP 120/58; PULSE 87; RESP 20; TEMP 36.2; O2SAT 96
[2025-05-12 08:33] LABS: Hematocrit 36.1 % (37.0-47.0); Hemoglobin 12.1 g/dl (12.0-16.0); Mean Corpuscular HGB Conc 33.5 g/dl (31.0-35.0); Mean Corpuscular Hemoglobin 26.6 pg (27.0-33.0); Mean Corpuscular Volume 79.3 fL (80.0-98.0); NRBC Abs Auto 0.000 X10*3/uL (0.0-0.012); NRBC Pct Auto 0.0 /100WBC (0.0-0.2); Platelet Count 286 X10*3/uL (160-400); Red Blood Count 4.55 X10*6/uL (4.20-5.50); White Blood Count 5.8 X10*3/uL (4.8-10.8)
[2025-05-12] MEDS: Nicotine 7 MG PATCH.TD24 TRANSDERMA (08:39)
[2025-05-12] MEDS: 0.9 % Sodium Chloride Flush 3 ML SYRINGE IVFLUSH (08:40)
[2025-05-12 08:45] LABS: Anion Gap 12 (12-20); Blood Urea Nitrogen 12 mg/dL (9-16); Calcium 9.4 mg/dL (8.4-10.2); Carbon Dioxide 25 mmol/L (22-29); Chloride 106 mmol/L (96-108); Creatinine Clr Calc Pharmacy 110.3; Estimated Glomerular Filt Rate > 60; Potassium 3.3 mmol/L (3.3-5.1); Sodium 140 mmol/L (135-145)
[2025-05-12 08:53] LABS: Troponin-I High Sensitivity < 2.7 ng/L (<3.5-17.0)
--- NOTE | 2025-05-12 10:39 | PM.CNCAR ---
History of Present Illness History of Present Illness Date of Service: 05/12/25 Chief complaint: Chest Pain Narrative: This is a cardiology consultation regarding chest pain. Patient is generally followed by . She has got nonobstructive CAD based on cardiac CTA from couple of years ago. It seems that she has COPD. Last time she smoked was about a week ago. Current admission is because of chest pain. She states that for 3 days or so she was having fairly constant chest pain. She felt it across the front of the chest and then it was radiating to the shoulder blades. There was no clear exertional patterns and in fact it was present fairly constantly. Whenever she was breathing, it was apparently worse and also with coughing. Overall, sounds pleuritic. However, when she was initially evaluated in the ER it was felt to be concerning from cardiac and hence she was admitted. Currently, she actually states she is feeling better. She is not having any active symptoms at this time. She has chronic shortness of breath related to her COPD. Review of Systems Review of Systems: Yes all other systems are reviewed and are negative Constitutional: Constitutional: Reports as per HPI and Reports no additional constitutional complaints Eyes: Eyes: Reports as per HPI and Denies no additional eye complaints ENT: Denies system reviewed and no additional complaints, except as documented and Reports as per HPI Cardiovascular: Cardiovascular: Reports as per HPI, Reports no additional cardiovascular complaints, Denies acrocyanosis, Denies cool extremities, Denies chest pain, Denies leg edema, Denies lightheadedness, Denies palpitations and Denies dyspnea Respiratory: Respiratory: Reports as per HPI, Denies no additional respiratory complaints and Denies dyspnea Gastrointestinal: Gastrointestinal: Reports as per HPI and Denies no additional gastrointestinal complaints Genitourinary: Genitourinary: Reports as per HPI Musculoskeletal: Musculoskeletal: Reports no additional musculoskeletal complaints and Reports as per HPI Integumentary/Breasts: Skin/Breast: Reports system reviewed and no additional complaints, except as docu Neurologic: Reports system reviewed and no additional complaints, except as documented and Reports as per HPI Psychiatric: Psychiatric: Reports no additional psychiatric complaints and Reports as per HPI Endocrine: Endocrine: Reports no additional endocrine complaints, Reports as per HPI and Denies palpitations Hematologic/Lymphatic: Hematologic/Lymphatic: Reports no additional hematologic/lymphatic complaints and Reports as per HPI Allergic/Immunologic: Allergic/Immunologic: Reports no additional allergic/immunologic complaints and Reports as per HPI [facility] Past Medical History Medical History Migraine without aura BOY on CPAP RLS (restless legs syndrome) Coronary artery disease Nicotine dependence, cigarettes, uncomplicated Pulmonary hypertension Dyspnea Vitamin D deficiency Mixed irritable bowel syndrome Michael's thyroiditis Fibromyalgia Type 2 diabetes mellitus Obesity (BMI 30-39.9) Hypothyroidism BOY (obstructive sleep apnea) Hypertension Pulmonary nodules Asthma-COPD overlap syndrome Family History Family History Father Myocardial infarction Hypertension Diabetes CVD (cardiovascular disease) Mother Restless leg syndrome Diabetes Paternal Aunt Breast cancer Uterine cancer Surgical History Surgical History History of colon resection History of cholecystectomy History of colonoscopy History of esophagogastroduodenoscopy (EGD) History of lithotripsy History of surgery on right wrist History of excision of mass (09/28/21) History of elbow surgery Status post tendon repair Status post trigger finger release H/O hand surgery H/O excision of ganglion cyst H/O arthroscopy of right knee Social History Social History Housing: Apartment Are you a primary critical care transport nurse to a significant other at home: No Do you presently have visiting nurse or other home services: Yes ([facility] once a year) Alcohol intake: former Patient Tobacco Use Status: Never used Tobacco Tobacco use type: Cigarette Cigarettes Per Day: 6 Years Smoked: (onset 18yo, 1/2-1ppd x 41yrs, now 1/4ppd - 30pyh) Smoked in Last 30 Days: No e-Cigarette/Vaping Use: Never Used Patient Interested in Nicotine Replacement: Yes (Patch) Patient Given Instructions on How to Stop Smoking: Yes Date Education Initiated: 05/11/25 Second Hand Smoke Exposure: No Use of substances other than those prescribed or required for medical reasons: No Currently Displaying Signs/Symptoms of Drug Intoxication Withdrawal: No Have you been hit, kicked, punched, or otherwise hurt by someone within the past year? If so, by whom?: No Do you feel safe in your current relationship?: No Current Relationship Is there a partner from a previous relationship who is making you feel unsafe now?: No Are you made to feel afraid or neglected: No Zoroastrianism Healthcare Practices: hindu Advance Directives: No Advance Directives Information Provided: Yes Do you have a plan to hurt others: No Plan Recently lost weight without trying: Yes How much weight loss: 34pounds or more Eating poorly because of decreased appetite: No Nutrition screen score: 6 Nutrition Risks: Poor intake 0-25% >4 days Patient : No : No Poor oral hygiene: No Meds Allergies Allergy/AdvReac Type Severity Reaction Status Date / Time adhesive tape Allergy Severe BLISTERS Verified 05/11/25 09:22 Tetanus Vaccines and Toxoid Allergy Intermediate SWELLING, Verified 05/11/25 09:22 (TETANUS VACCINES & TOXOID) REDNESS surgical tape Allergy Severe hives/boils Uncoded 04/09/25 09:08 Active Medications: Current Medications Acetaminophen (Acetaminophen 325 Mg Tablet) 650 mg PO Q6H PRN PRN Reason: Pain, Mild 1-3,fever,headache Amitriptyline HCl (Amitriptyline Hcl 25 Mg Tablet) 75 mg PO BEDTIME [facility] Last Admin: 05/11/25 21:08 Dose: 75 mg Aripiprazole (Aripiprazole 2 Mg Tablet) 2 mg PO DAILY [facility] Last Admin: 05/12/25 08:40 Dose: 2 mg Atorvastatin Calcium (Atorvastatin Calcium 40 Mg Tablet) 40 mg PO DAILY [facility] Last Admin: 05/12/25 08:40 Dose: 40 mg Calcium Carbonate (Calcium Carbonate 750 Mg Tab.Chew) 750 mg PO Q4H PRN PRN Reason: Heartburn Dextrose (Dextrose 50 % 25 Gm/50 Ml Syringe) 25 gm IVPUSH Q15M PRN; Protocol PRN Reason: per Hypoglycemia Standing Ord. Duloxetine HCl (Duloxetine Hcl 60 Mg Capsule.Dr) 60 mg PO DAILY [facility] Last Admin: 05/12/25 08:39 Dose: 60 mg Enoxaparin Sodium (Enoxaparin Sodium 40 Mg/0.4 Ml Syringe) 40 mg SUBCUT Q24H [facility] Last Admin: 05/12/25 08:45 Dose: Not Given Glucose (Glucose Gel 15 Gm Gel..Gram.) 15 gm PO Q15M PRN; Protocol PRN Reason: per Hypoglycemia Standing Ord. Hydrochlorothiazide (Hydrochlorothiazide 12.5 Mg Tablet) 12.5 mg PO DAILY [facility] Last Admin: 05/12/25 08:40 Dose: 12.5 mg Hydroxyzine HCl (Hydroxyzine Hcl 25 Mg Tablet) 25 mg PO TID PRN PRN Reason: Anxiety Last Admin: 05/11/25 21:09 Dose: 25 mg Insulin Human Lispro (Insulin Lispro 100 Unit/Ml 3 Ml Vial) 0 unit SUBCUT QIDACHS [facility]; Protocol Last Admin: 05/12/25 08:22 Dose: Not Given Isosorbide Mononitrate (Isosorbide Mononitrate 30 Mg Tab.Er.24h) 30 mg PO DAILY [facility]; Protocol Last Admin: 05/12/25 08:40 Dose: 30 mg Levothyroxine Sodium (Levothyroxine Sodium 125 Mcg Tablet) 125 mcg PO DAILY@0600 [facility] Last Admin: 05/12/25 06:11 Dose: 125 mcg Losartan Potassium (Losartan Potassium 50 Mg Tablet) 50 mg PO DAILY [facility] Last Admin: 05/12/25 08:40 Dose: 50 mg Magnesium Hydroxide (Milk Of Magnesia 30 Ml Oral.Susp) 30 ml PO DAILY PRN PRN Reason: Constipation Last Admin: 05/11/25 21:05 Dose: 30 ml Magnesium Oxide (Magnesium Oxide 400 Mg Tablet) 400 mg PO BEDTIME [facility] Last Admin: 05/11/25 21:07 Dose: 400 mg Melatonin (Melatonin 3 Mg Tablet) 6 mg PO BEDTIME PRN PRN Reason: Insomnia Last Admin: 05/11/25 21:07 Dose: 6 mg Montelukast Sodium (Montelukast Sodium 10 Mg Tablet) 10 mg PO BEDTIME [facility] Last Admin: 05/11/25 21:08 Dose: 10 mg Nicotine (Nicotine 7 Mg Patch.Td24) 7 mg TRANSDERMA DAILY [facility] Last Admin: 05/12/25 08:39 Dose: 7 mg Omeprazole (Omeprazole 20 Mg Capsule.Dr) 20 mg PO BID [facility] Last Admin: 05/12/25 08:40 Dose: 20 mg Oxycodone HCl (Oxycodone Hcl Immed Release 5 Mg Tablet) 5 mg PO Q6H PRN PRN Reason: Pain, Severe (Pain Scale 7-10) Last Admin: 05/11/25 21:09 Dose: 5 mg Ropinirole HCl (Ropinirole Hcl 1 Mg Tablet) 3 mg PO BEDTIME [facility] Last Admin: 05/11/25 21:05 Dose: 3 mg Sodium Chloride (0.9 % Sodium Chloride Flush 3 Ml Syringe) 3 ml IVFLUSH QSHIFT [facility] Last Admin: 05/12/25 08:40 Dose: 3 ml Topiramate (Topiramate 25 Mg Tablet) 25 mg PO BID [facility] Last Admin: 05/12/25 08:40 Dose: 25 mg Home Medications ?Medication ?Instructions ?Recorded ?Confirmed ?Last Taken ?Type duloxetine 60 mg capsule,delayed 60 mg PO DAILY 08/18/21 05/11/25 05/11/25 History release ropinirole 3 mg tablet 3 mg PO BEDTIME 10/06/21 05/11/25 05/10/25 History amitriptyline 75 mg tablet 75 mg PO BEDTIME 11/28/21 05/11/25 05/10/25 History omeprazole 20 mg capsule,delayed 20 mg PO BID 11/28/21 05/11/25 05/11/25 History release aripiprazole 2 mg tablet 2 mg PO DAILY 02/16/22 05/11/25 05/11/25 History nebulizers 10/27/22 04/09/25 09/21/24 History nebulizers 10/12/23 04/09/25 09/21/24 History fluticasone fur. 200 mcg-umeclid 1 ea inhalation DAILY 05/11/25 05/11/25 05/11/25 History 62.5 mcg-vilant 25 mcg inhalat.powder (Trelegy Ellipta) hydroxyzine HCl 25 mg tablet 25 mg PO TID PRN Anxiety 05/11/25 05/11/25 Unknown History insulin lispro 100 unit/mL See Protocol subcut TID PRN when 05/11/25 05/11/25 Unknown History subcutaneous pen sugar is above 150 levothyroxine 125 mcg tablet 125 mcg PO DAILY@0600 05/11/25 05/11/25 05/11/25 History losartan 50 mg-hydrochlorothiazide 1 tab PO DAILY 05/11/25 05/11/25 05/11/25 History 12.5 mg tablet metformin 500 mg tablet 500 mg PO BIDWM 05/11/25 05/11/25 05/11/25 History semaglutide 1 mg/dose (4 mg/3 mL) 1 mg subcut [place] 05/11/25 05/11/25 05/09/25 History subcutaneous pen injector (Ozempic) Physical Exam Vital Signs: Vital Signs: Last Vital Signs Temp 97.2 F 05/12/25 08:00 Pulse 87 05/12/25 08:00 Resp 20 05/12/25 08:00 BP 120/58 L 05/12/25 08:00 Pulse Ox 96 05/12/25 08:00 O2 Del Method Room Air 05/12/25 08:00 BMI result Body Mass Index 26.9 Const: General: comfortable and no acute distress Orientation/consciousness: patient oriented x3 HEENT: Other: Unremarkable Head: Yes normal to inspection Neck: Neck: Yes normal visual inspection Chest: Chest palpation & inspection: normal inspection of the chest Resp: Other: Few basal crackles Cardio: Palpation: normal PMI Heart sounds: S1 normal heart sound present, S2 normal heart sound present, no gallops, no murmurs and no rubs GI: Palpation (GI): Soft to palpation Back/Spine/Pelvis: Other: unremarkable Skin: General skin exam: no rashes or lesions noted Neuro: General: patient oriented x3 Extrem: General: Yes normal to inspection Psych: Mental Status: mental status grossly normal Objective Labs and Meds 05/12/25 08:25 05/12/25 08:25 Lab results: Laboratory Results - last 24 hr 05/11/25 05/11/25 05/11/25 09:36 12:00 18:29 WBC RBC Hgb Hct MCV MCH MCHC RDW Plt Count MPV Absolute Nucleated RBC Nucleated RBC % (auto) Sodium Potassium Chloride Carbon Dioxide Anion Gap BUN Creatinine Estim Creat Clear Calc Estimated GFR POC Glucose 129 H Random Glucose Calcium ALT 25 Troponin I High Sens < 2.7 05/11/25 05/12/25 05/12/25 20:07 07:48 08:25 WBC 5.8 RBC 4.55 Hgb 12.1 Hct 36.1 L MCV 79.3 L MCH 26.6 L MCHC 33.5 RDW 14.2 Plt Count 286 MPV 9.0 L Absolute Nucleated RBC 0.000 Nucleated RBC % (auto) 0.0 Sodium 140 Potassium 3.3 Chloride 106 Carbon Dioxide 25 Anion Gap 12 BUN 12 Creatinine 0.59 Estim Creat Clear Calc 110.3 Estimated GFR > 60 POC Glucose 161 H 138 H Random Glucose 128 H Calcium 9.4 ALT Troponin I High Sens < 2.7 ECG Interpretation: EKG with sinus rhythm at 94/Min with sinus arrhythmias; possible left atrial enlargement; nonspecific ST-T changes. In the office EKG from September, again some nonspecific changes. Imaging Radiologist's impression: Impressions Chest CTA 05/11/25 11:03 IMPRESSION: 1. Limited examination due to patient motion. No definite evidence of pulmonary emboli. 2. Scattered subcentimeter bilateral pulmonary nodules without significant change. 3. Borderline mediastinal and hilar lymph nodes as described. Continued follow-up is recommended. Electronically signed by: Rodney Prajapati MD 05/11/2025 11:34 AM EDT RP Assessment and Plan (1) Chest pain: Qualifiers: Chest pain type: precordial pain Qualified Code(s): R07.2 - Precordial pain Status: Acute (2) Coronary artery disease: Status: Acute Plan So far, no evidence of ACS. Troponins are negative. In the stress echo, she was able to exercise for 4.6 METS on Santana protocol and reached target heart rate. Had shortness of breath. Some ST-depression noted. No ischemic findings on the echocardiographic component. There was some post exercise pulmonary hypertension. Coronary CTA 2021-scattered mild calcification in the proximal to mid LAD with < 50% stenosis. OM1 with mild, < 50% proximal stenosis. Overall, atypical sounding chest pain with negative biomarkers. We will review the echocardiogram/stress test. Based on the findings, we will plan further care. At the time of this visit, she seems comfortable and without any obvious pain. Procedures Date of Service Date of Service: 05/12/25
--- NOTE | 2025-05-12 10:48 | P.PNIM_ITS ---
Subjective Subjective Date of Service: 05/12/25 Interval History: chest pain better Physical Exam 2 Exam: Exam: General: AO X 3, no acute distress Resp: CTA bilateral, no accessory muscles used CVS: S1,S2,RRR GI: soft, non tender, non distended Neuro: motor grossly intact, alert Psych: appropriate affect, appropriate insight Vital Signs: Vital Signs: Last Vital Signs Temp 97.2 F 05/12/25 08:00 Pulse 87 05/12/25 08:00 Resp 20 05/12/25 08:00 BP 120/58 L 05/12/25 08:00 Pulse Ox 96 05/12/25 08:00 O2 Del Method Room Air 05/12/25 08:00 BMI result Body Mass Index 26.9 Objective Data Active Medications Acetaminophen (Acetaminophen 325 Mg Tablet) 650 mg PO Q6H PRN PRN Reason: Pain, Mild 1-3,fever,headache Amitriptyline HCl (Amitriptyline Hcl 25 Mg Tablet) 75 mg PO BEDTIME [facility] Last Admin: 05/11/25 21:08 Dose: 75 mg Documented By: BARBARA Aripiprazole (Aripiprazole 2 Mg Tablet) 2 mg PO DAILY [facility] Last Admin: 05/12/25 08:40 Dose: 2 mg Documented By: PHUC Atorvastatin Calcium (Atorvastatin Calcium 40 Mg Tablet) 40 mg PO DAILY [facility] Last Admin: 05/12/25 08:40 Dose: 40 mg Documented By: PHUC Calcium Carbonate (Calcium Carbonate 750 Mg Tab.Chew) 750 mg PO Q4H PRN PRN Reason: Heartburn Dextrose (Dextrose 50 % 25 Gm/50 Ml Syringe) 25 gm IVPUSH Q15M PRN; Protocol PRN Reason: per Hypoglycemia Standing Ord. Duloxetine HCl (Duloxetine Hcl 60 Mg Capsule.Dr) 60 mg PO DAILY [facility] Last Admin: 05/12/25 08:39 Dose: 60 mg Documented By: PHUC Enoxaparin Sodium (Enoxaparin Sodium 40 Mg/0.4 Ml Syringe) 40 mg SUBCUT Q24H [facility] Last Admin: 05/12/25 08:45 Dose: Not Given Documented By: PHUC Non-Admin Reason: Patient Refused Glucose (Glucose Gel 15 Gm Gel..Gram.) 15 gm PO Q15M PRN; Protocol PRN Reason: per Hypoglycemia Standing Ord. Hydrochlorothiazide (Hydrochlorothiazide 12.5 Mg Tablet) 12.5 mg PO DAILY [facility] Last Admin: 05/12/25 08:40 Dose: 12.5 mg Documented By: PHUC Hydroxyzine HCl (Hydroxyzine Hcl 25 Mg Tablet) 25 mg PO TID PRN PRN Reason: Anxiety Last Admin: 05/11/25 21:09 Dose: 25 mg Documented By: BARBARA Insulin Human Lispro (Insulin Lispro 100 Unit/Ml 3 Ml Vial) 0 unit SUBCUT QIDACHS [facility]; Protocol Last Admin: 05/12/25 08:22 Dose: Not Given Documented By: PHUC Non-Admin Reason: No Insulin Coverage Isosorbide Mononitrate (Isosorbide Mononitrate 30 Mg Tab.Er.24h) 30 mg PO DAILY [facility]; Protocol Last Admin: 05/12/25 08:40 Dose: 30 mg Documented By: PHUC Levothyroxine Sodium (Levothyroxine Sodium 125 Mcg Tablet) 125 mcg PO DAILY@0600 [facility] Last Admin: 05/12/25 06:11 Dose: 125 mcg Documented By: BARBARA Losartan Potassium (Losartan Potassium 50 Mg Tablet) 50 mg PO DAILY [facility] Last Admin: 05/12/25 08:40 Dose: 50 mg Documented By: PHUC Magnesium Hydroxide (Milk Of Magnesia 30 Ml Oral.Susp) 30 ml PO DAILY PRN PRN Reason: Constipation Last Admin: 05/11/25 21:05 Dose: 30 ml Documented By: BARBARA Magnesium Oxide (Magnesium Oxide 400 Mg Tablet) 400 mg PO BEDTIME [facility] Last Admin: 05/11/25 21:07 Dose: 400 mg Documented By: BARBARA Melatonin (Melatonin 3 Mg Tablet) 6 mg PO BEDTIME PRN PRN Reason: Insomnia Last Admin: 05/11/25 21:07 Dose: 6 mg Documented By: BARBARA Montelukast Sodium (Montelukast Sodium 10 Mg Tablet) 10 mg PO BEDTIME [facility] Last Admin: 05/11/25 21:08 Dose: 10 mg Documented By: BARBARA Nicotine (Nicotine 7 Mg Patch.Td24) 7 mg TRANSDERMA DAILY [facility] Last Admin: 05/12/25 08:39 Dose: 7 mg Documented By: PHUC Omeprazole (Omeprazole 20 Mg Capsule.Dr) 20 mg PO BID [facility] Last Admin: 05/12/25 08:40 Dose: 20 mg Documented By: PHUC Oxycodone HCl (Oxycodone Hcl Immed Release 5 Mg Tablet) 5 mg PO Q6H PRN PRN Reason: Pain, Severe (Pain Scale 7-10) Last Admin: 05/11/25 21:09 Dose: 5 mg Documented By: BARBARA Ropinirole HCl (Ropinirole Hcl 1 Mg Tablet) 3 mg PO BEDTIME [facility] Last Admin: 05/11/25 21:05 Dose: 3 mg Documented By: BARBARA Sodium Chloride (0.9 % Sodium Chloride Flush 3 Ml Syringe) 3 ml IVFLUSH QSHIFT [facility] Last Admin: 05/12/25 08:40 Dose: 3 ml Documented By: PHUC Topiramate (Topiramate 25 Mg Tablet) 25 mg PO BID [facility] Last Admin: 05/12/25 08:40 Dose: 25 mg Documented By: PHUC Labs 05/12/25 08:25 05/12/25 08:25 Labs: Laboratory Results - last 24 hr 05/11/25 05/11/25 05/11/25 12:00 18:29 20:07 MCV MCH MCHC RDW Plt Count MPV Absolute Nucleated RBC Nucleated RBC % (auto) Anion Gap Estim Creat Clear Calc Estimated GFR POC Glucose 129 H 161 H Random Glucose Calcium Troponin I High Sens < 2.7 05/12/25 05/12/25 07:48 08:25 MCV 79.3 L MCH 26.6 L MCHC 33.5 RDW 14.2 Plt Count 286 MPV 9.0 L Absolute Nucleated RBC 0.000 Nucleated RBC % (auto) 0.0 Anion Gap 12 Estim Creat Clear Calc 110.3 Estimated GFR > 60 POC Glucose 138 H Random Glucose 128 H Calcium 9.4 Troponin I High Sens < 2.7 Assessment and Plan (1) Chest pain: Status: Acute Plan 59F PMH bipolar, hypothyroid, hypertension, DM, family history of CAD, presented wiht chest pain Chest pain no ACS Rule out coronary artery disease follow up echo stress test Bipolar Continue Cymbalta, Abilify, amitriptyline htn continue Imdur, losartan, hydrochlorothiazide Hypothyroid Levothyroxine Diabetes Insulin sliding scale DVT prophylaxis with Lovenox Full code reason for continued hospitalization:stress test and echo pending Quality Stroke Does the patient have a stroke diagnosis?: No VTE Prior VTE?: No VTE Risk Level:: Medical - moderate - high VTE Device Contraindication: Treatment Not Indicated VTE Drug Contraindication: N/A - Med Ordered
--- NOTE | 2025-05-12 10:52 | P.DS_ITS ---
DS: Providers Provider Date of Service: 05/12/25 Date of admission: 05/11/25 14:55 Date of discharge: 05/12/25 Primary care physician: Virginie Lopez MD Consults: 05/11/25 14:57 Consult to Cardiology Routine Consulting Provider: [facility] Reason for consultation: chest pain Has provider been notified: Yes DS: Diagnosis Discharge Diagnosis (1) Chest pain: Status: Acute DS: Summary Hospital Course Hospital Course: from initial hpi: 59F PMH bipolar, hypothyroid, hypertension, DM, family history of CAD, presented wiht chest pain. Chest pain began 3 days prior to presentation. Is constant, 8/10, midsternal radiates to upper left shoulder. Somewhat positional. Associated with shortness of breath worse on exertion. Relieved minimally by nitroglycerin. Denies diaphoresis, nausea, vomiting, fever, chills. She has had a cough with some brown sputum. In ED EKG negative for ischemia, troponin negative. hospital course: Patient was admitted for chest pain. Troponin negative, EKG negative. Was seen by Cardiology recommended echo and stress test which was done and showed apical ischemia, recommendations were to start baby aspirin, increase Imdur, start beta-ras and discharge with plan for short-term follow up for cardiac catheterization. For bipolar disorder was continued on Abilify, Cymbalta, Elavil. For hypertension was continued on losartan, hydrochlorothiazide, Imdur. For hypothyroid was continued on levothyroxine. For diabetes continued on insulin sliding scale. Time Attestation Discharge Coordination Time (in mins): 34 Quality: Safe Use of Opioids Does Pt have an Active Cancer Diagnosis on the Problem List?: No Quality: Stroke Does the patient have a stroke diagnosis?: No Physical Exam Exam: Exam: General: AO X 3, no acute distress Resp: CTA bilateral, no accessory muscles used CVS: S1,S2,RRR GI: soft, non tender, non distended Neuro: motor grossly intact, alert Psych: appropriate affect, appropriate insight Vital Signs: Vital Signs: Last Vital Signs Temp 97.2 F 05/12/25 08:00 Pulse 87 05/12/25 08:00 Resp 20 05/12/25 08:00 BP 120/58 L 05/12/25 08:00 Pulse Ox 96 05/12/25 08:00 O2 Del Method Room Air 05/12/25 08:00 BMI result Body Mass Index 26.9 DS: Data Data Completed and Pending Labs on day of discharge: Laboratory Results - last 24 hr 05/11/25 05/11/25 05/11/25 12:00 18:29 20:07 WBC RBC Hgb Hct MCV MCH MCHC RDW Plt Count MPV Absolute Nucleated RBC Nucleated RBC % (auto) Sodium Potassium Chloride Carbon Dioxide Anion Gap BUN Creatinine Estim Creat Clear Calc Estimated GFR POC Glucose 129 H 161 H Random Glucose Calcium Troponin I High Sens < 2.7 05/12/25 05/12/25 07:48 08:25 WBC 5.8 RBC 4.55 Hgb 12.1 Hct 36.1 L MCV 79.3 L MCH 26.6 L MCHC 33.5 RDW 14.2 Plt Count 286 MPV 9.0 L Absolute Nucleated RBC 0.000 Nucleated RBC % (auto) 0.0 Sodium 140 Potassium 3.3 Chloride 106 Carbon Dioxide 25 Anion Gap 12 BUN 12 Creatinine 0.59 Estim Creat Clear Calc 110.3 Estimated GFR > 60 POC Glucose 138 H Random Glucose 128 H Calcium 9.4 Troponin I High Sens < 2.7 Discharge Plan Discharge Anticipated Discharge Date/Time: 05/12/25 10:50 Patient Disposition: Home, Self-Care Discharge Diagnosis: Chest pain Referrals: Virginie Monet MD [Primary Care Provider, Internal Medicine] - 1 Week Discharge Medications: New aspirin 81 mg tablet 81 mg PO DAILY Qty: 90 0RF metoprolol succinate [Toprol XL] 25 mg tablet extended release 24 hr 25 mg PO DAILY Qty: 90 0RF Continued (DME) lancets [FreeStyle Lancets] 28 gauge misc See Rx Instructions .ROUTE .MEDSUPPLY Qty: 50 6RF Rx Instructions: Once a day albuterol sulfate 2.5 mg /3 mL (0.083 %) solution for nebulization 2.5 mg continuous nebulization QID PRN (Reason: for wheezing) Qty: 180 0RF oxycodone 5 mg tablet 5 mg PO Q6H PRN (Reason: pain) Qty: 20 0RF Rx Instructions: Partial Fill upon patient request. albuterol sulfate 90 mcg/actuation HFA aerosol inhaler 2 puff PO Q6H PRN (Reason: for wheezing) 30 Days Qty: 8.5 11RF montelukast [Singulair] 10 mg tablet 10 mg PO BEDTIME 30 Days Qty: 30 11RF metformin 500 mg tablet 500 mg PO BIDWM hydroxyzine HCl 25 mg tablet 25 mg PO TID PRN (Reason: Anxiety) losartan-hydrochlorothiazide 50-12.5 mg tablet 1 tab PO DAILY insulin lispro 100 unit/mL insulin pen See Protocol subcut TID PRN (Reason: when sugar is above 150) Protocol: Insulin Correction Scale Less than or equal to 110 ---- Give (units): 0 111 to 150 Give (units): 0 151 to 200 Give (units): 2 201 to 250 Give (units): 4 251 to 300 Give (units): 6 301 to 350 Give (units): 8 Greater than 350 Give (units): 10 Call MD if Blood Glucose > : 350 Ozempic 1 mg/dose (4 mg/3 mL) pen injector 1 mg subcut [place] levothyroxine 125 mcg tablet 125 mcg PO DAILY@0600 Trelegy Ellipta 200-62.5-25 mcg blister with device 1 ea inhalation DAILY amitriptyline 75 mg tablet 75 mg PO BEDTIME omeprazole 20 mg capsule,delayed release(DR/EC) 20 mg PO BID ropinirole 3 mg tablet 3 mg PO BEDTIME aripiprazole 2 mg tablet 2 mg PO DAILY duloxetine 60 mg capsule,delayed release(DR/EC) 60 mg PO DAILY (DME) nebulizers Misc See Rx Instructions .Route Rx Instructions: As directed (DME) nebulizers Misc See Rx Instructions .Route Rx Instructions: As directed atorvastatin 40 mg tablet 40 mg PO DAILY Qty: 60 3RF magnesium oxide 400 mg magnesium tablet 400 mg PO BEDTIME 90 Days Qty: 90 3RF topiramate 25 mg tablet 25 mg PO BID 30 Days Qty: 60 3RF Rx Instructions: Take 1 tablet by mouth at bedtime for 2 weeks and then increase to 1 tablet by mouth twice daily. Changed isosorbide mononitrate 30 mg tablet extended release 24 hr 60 mg PO DAILY Qty: 60 5RF Discharge Orders: Discharge Order (Routine); Ordered 05/12/25 Ordered By: Chico Bledsoe Diet: Advance to usual diet Activity on Discharge: As tolerated Stand Alone Forms: Patient Portal Discharge page Print Language: Azerbaijani Care Plan Goals: Recovery Health Concerns: Chest pain, CAD Plan of Treatment: Started baby aspirin, increased Imdur, started Toprol, follow up with Cardiology for cardiac catheterization Assessment: See above
[2025-05-12 11:51] LABS: Glucose, Whole Blood 154 mg/dL (60-115)
[2025-05-12 12:00] VITALS: BP 128/58; PULSE 94; RESP 20; TEMP 36.8; O2SAT 95
--- NOTE | 2025-05-12 13:29 | MHC.CM.PN ---
Desiree 05/12/25, Pt. lives alone, she has 6.5 PATIENT OFFICE REP hrs. per week, she has a periodic visit from [facility] nurse, she does not use DME. PCP confirmed: Virginie Shah. Pt. will need assistance with transport home at [place], DCP: home, resume PATIENT OFFICE REP care. CM will follow for DC needs.
[2025-05-12] MEDS: oxyCODONE HCl Immed Release 5 MG TABLET PO (14:25)
--- NOTE | 2025-05-12 15:34 | MHC.CM.PN ---
Pt. has been medically cleared to [place], she will go home via family transport, plan is self care.
[2025-05-12 15:54] VITALS: BP 124/60; PULSE 96; RESP 20; TEMP 36.2; O2SAT 96
== END 2025-05-12 16:42 | disposition home or self-care (01) ==
LOC: HO.ED 13:08 → HO.EDOVER 15:02 → HO.IMC 15:58
PROVIDERS: Admitting Provider Internal Medicine; Emergency Provider Emergency Medicine; PCP Internal Medicine; Visit Provider Internal Medicine
DX: R07.2 Precordial pain (principal); I25.10 Atherosclerotic heart disease of native coronary artery without angina pectoris; I10 Essential (primary) hypertension; R07.9 Chest pain, unspecified; R05.9 Cough, unspecified; E11.9 Type 2 diabetes mellitus without complications; E03.9 Hypothyroidism, unspecified; I25.9 Chronic ischemic heart disease, unspecified; Z79.899 Other long term (current) drug therapy; Z03.818 Encounter for observation for suspected exposure to other biological agents ruled out
CPT/HCPCS: 36415; 71045; 71275; 78452; 80048; 80076; 82550; 82803; 82947; 83735; 83880; 84484; 85025; 85027; 85379; 86140; 87635; 93005; 93017; 93306; 96374; 96375; 99222; 99285; A9500; J0280; J1650; J2270; J2405; J2785; Q9967

== ENCOUNTER → 2025-05-11 09:22 | Outpatient (BNV) | payer OTHER, SELFPAY | PROVIDERS: Emergency Provider Emergency Medicine; PCP Internal Medicine; Visit Provider Radiology Diagnostic Ultrasound | DX: R91.1 Solitary pulmonary nodule (principal); R07.9 Chest pain, unspecified | CPT/HCPCS: 71045; 71275 ==

== ENCOUNTER → 2025-05-11 09:53 | Outpatient (BNV) | payer OTHER, SELFPAY | PROVIDERS: Emergency Provider Emergency Medicine; PCP Internal Medicine; Visit Provider Internal Medicine | DX: R07.2 Precordial pain (principal) | CPT/HCPCS: 99239; 99499 ==

== ENCOUNTER 2025-05-11 14:55 | Outpatient (BNV) | payer OTHER, SELFPAY | END 2025-05-12 15:00 | PROVIDERS: Admitting Provider Internal Medicine; Emergency Provider Emergency Medicine; PCP Internal Medicine; Visit Provider Internal Medicine | DX: R07.9 Chest pain, unspecified (principal); I25.5 Ischemic cardiomyopathy | CPT/HCPCS: 78451 ==

== ENCOUNTER → 2025-05-11 14:55 | Outpatient (BNV) | payer OTHER, SELFPAY | PROVIDERS: Admitting Provider Internal Medicine; Emergency Provider Emergency Medicine; PCP Internal Medicine; Visit Provider Internal Medicine | DX: R07.2 Precordial pain (principal); I25.10 Atherosclerotic heart disease of native coronary artery without angina pectoris | CPT/HCPCS: 93016; 93018; 93306; 99222 ==

== ENCOUNTER → 2025-05-27 23:59 | Outpatient (BNV) | payer OTHER, SELFPAY | PROVIDERS: PCP Internal Medicine; Visit Provider Internal Medicine Cardiovascular Disease | DX: I25.118 Atherosclerotic heart disease of native coronary artery with other forms of angina pectoris (principal) | CPT/HCPCS: 93458; 99152 ==

== ENCOUNTER 2025-06-01 08:54 | Outpatient (AMB) | payer OTHER, SELFPAY ==
[2025-06-01 09:04] VITALS: BP 140/64; PULSE 89; BMI 28.0
--- NOTE | 2025-06-01 09:04 | MHC.OFFVIS ---
Vital Signs 06/01/25 09:04 Height 5 ft 7 in Weight 179 lb 0.246 oz BMI 28.0 BP 140/64 H Blood Pressure Location Lt brachial Position Sitting Pulse 89 Pulse Source Monitor Intake Visit Reasons: f/u pt request r/s 01-26-25 Intake Note: f/up- pt request Brick Tester Required: No Accompanied by: Self / Same As Patient Allergies adhesive tape Allergy (Severe, Verified 05/11/25 09:22) BLISTERS Tetanus Vaccines and Toxoid (TETANUS VACCINES & TOXOID) Allergy (Intermediate, Verified 05/11/25 09:22) SWELLING, REDNESS surgical tape Allergy (Severe, Uncoded 04/09/25 09:08) hives/boils Medication List - Last Reconciled 06/01/25 by Vikas Bañuelos MD albuterol sulfate 2.5 mg (3 mL) continuous nebulization QID PRN albuterol sulfate 90 mcg/actuation 2 puffs PO Q6H PRN 30 days amitriptyline 75 mg PO BEDTIME aripiprazole 2 mg PO DAILY aspirin 81 mg PO DAILY atorvastatin 40 mg PO DAILY duloxetine 60 mg PO DAILY afwovebpdbk-sajyrrncq-hibcllrz 200-62.5-25 mcg (Trelegy Ellipta) 1 ea inhalation DAILY hydroxyzine HCl 25 mg PO TID PRN insulin lispro See Protocol sliding scale doses subcut TID PRN isosorbide mononitrate ER 60 mg (2 x 30 mg) PO DAILY lancets (FreeStyle Lancets) Once a day levothyroxine 125 mcg PO DAILY@0600 losartan-hydrochlorothiazide 50-12.5 mg 1 tab PO DAILY magnesium oxide 400 mg PO BEDTIME 90 days metformin 500 mg PO BIDWM metoprolol succinate ER (Toprol XL) 25 mg PO DAILY montelukast (Singulair) 10 mg PO BEDTIME 30 days nebulizers As directed nebulizers As directed omeprazole 20 mg PO BID oxycodone 5 mg PO Q6H PRN ropinirole 3 mg PO BEDTIME semaglutide (Ozempic) 1 mg subcut [place] topiramate 25 mg PO BID 30 days HPI Comments Details: 59-year-old female who is here for follow-up. She was recently in the hospital with chest pain and underwent nuclear stress test which showed LAD territory perfusion defect. She subsequently underwent cardiac catheterization as outpatient which did not show any significant coronary disease and had minimal irregularities in the coronary arteries. She continues to have some chest pressure on the left side of the chest. She does not have a COPD exacerbation although she has an active smoker at this point. She has a history of hiatal hernia and has been using omeprazole 40 mg once a day. [facility] Medical History Migraine without aura BOY on CPAP RLS (restless legs syndrome) Coronary artery disease Nicotine dependence, cigarettes, uncomplicated Pulmonary hypertension Dyspnea Vitamin D deficiency Mixed irritable bowel syndrome Michael's thyroiditis Fibromyalgia Type 2 diabetes mellitus Obesity (BMI 30-39.9) Hypothyroidism BOY (obstructive sleep apnea) Hypertension Pulmonary nodules Asthma-COPD overlap syndrome Surgical History History of colon resection History of cholecystectomy History of colonoscopy History of esophagogastroduodenoscopy (EGD) History of lithotripsy History of surgery on right wrist History of excision of mass (09/28/21) History of elbow surgery Status post tendon repair Status post trigger finger release H/O hand surgery H/O excision of ganglion cyst H/O arthroscopy of right knee Family History Father Myocardial infarction Hypertension Diabetes CVD (cardiovascular disease) Mother Restless leg syndrome Diabetes Paternal Aunt Breast cancer Uterine cancer Social History Housing: Apartment Are you a primary physician assistant primary care to a significant other at home: No Do you presently have visiting nurse or other home services: Yes ([facility] once a year) 75 years or older and lives alone: No Alcohol intake: former Patient Tobacco Use Status: Never used Tobacco Tobacco use type: Cigarette Cigarettes Per Day: 6 Years Smoked: (onset 18yo, 1/2-1ppd x 41yrs, now 1/4ppd - 30pyh) e-Cigarette/Vaping Use: Never Used Second Hand Smoke Exposure: No service: No Review of Systems Const Denies chills, Denies fatigue, Denies fever(s), Denies frequent falls, Denies weakness, Denies weight gain and Denies weight loss ENT Denies dizziness Card Denies chest pain, Denies leg edema, Denies lightheadedness, Denies palpitations, Denies dyspnea and Denies dyspnea on exertion Resp Denies cough, Denies dyspnea and Denies dyspnea on exertion GI Denies hematochezia Musc Denies abnormal gait, Denies muscle weakness, Denies numbness, Denies radiating pain into limb and Denies tingling Neuro Denies abnormal gait, Denies dizziness, Denies frequent falls, Denies numbness, Denies tingling and Denies weakness Endo Denies fatigue and Denies palpitations Physical Exam Vital Signs: Last Vital Signs Pulse 89 06/01/25 09:04 BP 140/64 H 06/01/25 09:04 BMI result Body Mass Index 28.0 GENERAL APPEARANCE: in no acute distress, pleasant. NECK: no carotid bruit, no jugular venous distention. SKIN: no suspicious lesions, warm and dry. HEART: no murmurs, regular rate and rhythm. LUNGS: clear to auscultation bilaterally. ABDOMEN: soft, nontender. EXTREMITIES: no edema. Tremors in hands. Right radial cardiac catheterization access site stable. PERIPHERAL PULSES: equal. NEUROLOGIC: No gross deficits, AAO X 3 Office Procedures EKG Details: 0s rhythm 89 beats per minute, nonspecific T-wave changes, QTC 438 milliseconds. [id number], Complete Assessment & Plan Assessment & Plan (1) Hypertension: Code(s): I10 - Essential (primary) hypertension Category: Medical (2) Chest pain: Code(s): R07.9 - Chest pain, unspecified Category: Medical Qualifiers: Chest pain type: precordial pain Qualified Code(s): R07.2 - Precordial pain Plan Pleasant 59-year-old lady presenting for follow-up. She underwent cardiac catheterization last week which did not show any significant coronary disease. She was getting chest pressure and continues to get these symptoms. I think these are related to hiatal hernia and potentially esophageal spasm. I have advised her to stop the isosorbide mononitrate and start taking amlodipine 5 mg daily. I am providing her with a nicotine patches. I have also advised her to double the omeprazole for now. She will take it twice a day. She will be following with pulmonology. She should follow up with GI. Follow up with us in 4 months. Thank you for allowing me to participate in the care of your patient. Please feel free to contact me if you have any questions. Medications: New amlodipine 5 mg PO DAILY 90 tabs 3RF I10 - Essential (primary) hypertension nicotine 1 patch transdermal DAILY 28 ea 0RF F17.210 - Nicotine dependence, cigarettes, uncomplicated Discontinued isosorbide mononitrate ER Discontinued Reason: Doctor's Order 60 mg (2 x 30 mg) PO DAILY 60 tabs 5RF I10 - Essential (primary) hypertension Coding Level of Care Code Est Pt Level 4 (50256) Diagnoses Hypertension I10 Chest pain R07.2 Chest pain type: precordial pain CPT Codes EKG - CPT: 64264-[id number], Complete ([id number])
== END 2025-06-01 09:36 | disposition home or self-care (01) ==
LOC: HO.HCS 08:55
PROVIDERS: PCP Internal Medicine; Visit Provider Internal Medicine Cardiovascular Disease
DX: I10 Essential (primary) hypertension (principal); R07.2 Precordial pain
CPT/HCPCS: 93010; 99214

== ENCOUNTER → 2025-06-01 08:54 | Outpatient (BNVA) | payer OTHER, SELFPAY | PROVIDERS: PCP Internal Medicine; Visit Provider Internal Medicine Cardiovascular Disease | DX: I10 Essential (primary) hypertension (principal); R07.2 Precordial pain | CPT/HCPCS: 93005; 99212 ==

== ENCOUNTER 2025-07-09 00:07 | Inpatient (IN) | payer OTHER, SELFPAY ==
[2025-07-09] VITALS (28 sets, daily range): BP systolic 111–166; BP diastolic 46–79; PULSE 91–160; RESP 15–36; TEMP 36.5–39.7; O2SAT 94–100; BMI 27.6
--- NOTE | ~2025-07-09 | XR_ITS ---
CLINICAL HISTORY: cough, fever 1 view chest x-ray Comparison: Chest x-ray from 05/11/2025. Findings: Mild bibasilar atelectasis/pneumonitis with mild elevation of the left hemidiaphragm. No definite pneumothorax or pleural effusion. Imaged mediastinum and imaged osseous structures appear unchanged. IMPRESSION: Mild bibasilar atelectasis/pneumonitis This document has been electronically signed by: Yoseph Morton MD on 07/09/2025 02:13:35
--- NOTE | 2025-07-09 00:18 | ECG_ITS ---
Test Reason : TACHY Blood Pressure : */* mmHG Vent. Rate : 166 BPM Atrial Rate : * BPM P-R Int : * ms QRS Dur : 72 ms QT Int : 254 ms P-R-T Axes : * 37 192 degrees QTcB Int : 422 ms Atrial fibrillation with rapid ventricular response with premature ventricular or aberrantly conducted complexes Marked ST abnormality, possible lateral subendocardial injury Abnormal ECG When compared with ECG of 11-May-2025 09:11, Atrial fibrillation has replaced Sinus rhythm Vent. rate has increased by [address] now depressed in Lateral leads Inverted T waves have replaced nonspecific T wave abnormality in Inferior leads T wave inversion less evident in Lateral leads Referred By: Clifton Barry Electronically Signed By: ANTONI TOMLINSON MD
--- NOTE | 2025-07-09 00:29 | ED.GENADULT ---
HPI - General Adult General Chief complaint: Chest Pain Stated complaint: FLU LIKE SX,SOB X2D,H/O COPD/ASTHMA PER EMS Time Seen by Provider: 07/09/25 00:08 Source: patient, RN notes reviewed and old records reviewed Mode of arrival: EMS Limitations: no limitations History of Present Illness ED Provider: Asha HPI narrative: 59-year-old female with a past medical history significant for COPD not oxygen dependent, pulmonary hypertension, coronary artery disease, hypothyroidism, presenting for evaluation of flu-like symptoms. Patient reports that she has been sick for the last 2 days. She reports fevers and chills, coughing, shortness of breath. She reports generalized body aches with nausea and vomiting pain Denies any sick contacts. She reports some chest tightness pain No abdominal pain. Denies any recent travel. She was admitted at the end of [place] of the [facility] [place] ago for chest pain. She was seen by Cardiology she ultimately had an echocardiogram that showed a normal ejection fraction of 63%. She ended up having an outpatient cardiac catheterization in the middle of May that did not show any evidence of significant coronary artery disease She denies any history of atrial fibrillation or abnormal heart rhythms Related Data Home Medications ?Medication ?Instructions ?Recorded ?Confirmed duloxetine 60 mg capsule,delayed 60 mg PO DAILY 08/18/21 06/01/25 release amitriptyline 75 mg tablet 75 mg PO BEDTIME 11/28/21 06/01/25 omeprazole 20 mg capsule,delayed 20 mg PO BID 11/28/21 06/01/25 release aripiprazole 2 mg tablet 2 mg PO DAILY 02/16/22 06/01/25 nebulizers 10/27/22 06/01/25 nebulizers 10/12/23 06/01/25 fluticasone fur. 200 mcg-umeclid 1 ea inhalation DAILY 05/11/25 06/01/25 62.5 mcg-vilant 25 mcg inhalat.powder (Trelegy Ellipta) hydroxyzine HCl 25 mg tablet 25 mg PO TID PRN Anxiety 05/11/25 06/01/25 insulin lispro 100 unit/mL See Protocol subcut TID PRN when 05/11/25 06/01/25 subcutaneous pen sugar is above 150 levothyroxine 125 mcg tablet 125 mcg PO DAILY@0600 05/11/25 06/01/25 losartan 50 mg-hydrochlorothiazide 1 tab PO DAILY 05/11/25 06/01/25 12.5 mg tablet metformin 500 mg tablet 500 mg PO BIDWM 05/11/25 06/01/25 semaglutide 1 mg/dose (4 mg/3 mL) 1 mg subcut [place] 05/11/25 06/01/25 subcutaneous pen injector (Ozempic) Previous Rx's ?Medication ?Instructions ?Recorded lancets 28 gauge (FreeStyle #50 ea 11/16/20 Lancets) atorvastatin 40 mg tablet 40 mg PO DAILY #60 tabs 06/20/23 albuterol sulfate 2.5 mg/3 mL 2.5 mg (3 mL) continuous 08/29/24 (0.083 %) solution for nebulization nebulization QID PRN for wheezing #180 mL oxycodone 5 mg tablet 5 mg PO Q6H PRN pain #20 tabs 09/22/24 albuterol sulfate 90 mcg/actuation 2 puff PO Q6H PRN for wheezing 30 12/16/24 aerosol inhaler days #8.5 grams montelukast 10 mg tablet 10 mg PO BEDTIME 30 days #30 tabs 04/07/25 (Singulair) magnesium oxide 400 mg PO BEDTIME 90 days #90 tabs 04/09/25 topiramate 25 mg tablet 25 mg PO BID 30 days #60 tabs 04/09/25 aspirin 81 mg tablet 81 mg PO DAILY #90 tabs 05/12/25 metoprolol succinate 25 mg 25 mg PO DAILY #90 tabs 05/12/25 tablet,extended release 24 hr (Toprol XL) amlodipine 5 mg tablet 5 mg PO DAILY #90 tabs 06/01/25 nicotine 14 mg/24 hr daily 1 patch transdermal DAILY #28 ea 06/01/25 transdermal patch ropinirole 3 mg tablet 3 mg PO BEDTIME 90 days #90 tabs 06/08/25 Allergies Allergy/AdvReac Type Severity Reaction Status Date / Time adhesive tape Allergy Severe BLISTERS Verified 07/09/25 00:30 Tetanus Vaccines and Toxoid Allergy Intermediate SWELLING, Verified 07/09/25 00:30 (TETANUS VACCINES & TOXOID) REDNESS surgical tape Allergy Severe hives/boils Uncoded 04/09/25 09:08 Review of Systems Constitutional: Constitutional: Reports body ache(s), Reports chills, Reports fever(s), Reports headache(s) and Reports malaise Eyes: Eyes: Denies blurry vision ENT: Denies vertigo, Denies dizziness and Reports headache(s) Cardiovascular: Cardiovascular: Reports chest pain at rest, Reports dyspnea and Reports dyspnea on exertion Respiratory: Respiratory: Reports chest congestion, Reports cough, Reports pain with cough, Reports dyspnea and Reports dyspnea on exertion Gastrointestinal: Gastrointestinal: Denies abdominal pain, Reports nausea and Reports vomiting Musculoskeletal: Musculoskeletal: Denies back pain Integumentary/Breasts: Skin/Breast: Denies rash Neurologic: Denies confusion, Denies vertigo, Denies dizziness and Reports headache(s) Psychiatric: Psychiatric: Denies anxiety and Denies confusion [facility] Past Medical History Medical History Migraine without aura OBY on CPAP RLS (restless legs syndrome) Coronary artery disease Nicotine dependence, cigarettes, uncomplicated Pulmonary hypertension Dyspnea Vitamin D deficiency Mixed irritable bowel syndrome Michael's thyroiditis Fibromyalgia Type 2 diabetes mellitus Obesity (BMI 30-39.9) Hypothyroidism BOY (obstructive sleep apnea) Hypertension Pulmonary nodules Asthma-COPD overlap syndrome Surgical History History of colon resection History of cholecystectomy History of colonoscopy History of esophagogastroduodenoscopy (EGD) History of lithotripsy History of surgery on right wrist History of excision of mass (09/28/21) History of elbow surgery Status post tendon repair Status post trigger finger release H/O hand surgery H/O excision of ganglion cyst H/O arthroscopy of right knee Family History Family History Father Myocardial infarction Hypertension Diabetes CVD (cardiovascular disease) Mother Restless leg syndrome Diabetes Paternal Aunt Breast cancer Uterine cancer Social History Social History Housing: Apartment Are you a primary pet care assistant to a significant other at home: No Do you presently have visiting nurse or other home services: Yes ([facility] once a year) Alcohol intake: former Patient Tobacco Use Status: Never used Tobacco Tobacco use type: Cigarette Cigarettes Per Day: 6 Years Smoked: (onset 18yo, 1/2-1ppd x 41yrs, now 1/4ppd - 30pyh) Smoked in Last 30 Days: Yes e-Cigarette/Vaping Use: Never Used Second Hand Smoke Exposure: No Advance Directives: No Advance Directives Information Provided: Yes service: No Physical Exam ED Vital Signs: Vital Signs - 24 hr 07/09/25 00:15 07/09/25 00:48 07/09/25 01:32 Temperature 103.1 F H 103.4 F H 100.1 F Pulse Rate 160 H 128 H 122 H Respiratory Rate 25 H 15 Blood Pressure 133/72 166/50 H Pulse Oximetry 97 98 Oxygen Delivery Method Room Air Nasal Cannula Oxygen Flow Rate 1 07/09/25 01:45 07/09/25 01:50 07/09/25 02:18 Temperature Pulse Rate 124 H 152 H 128 H Respiratory Rate 22 H 24 H Blood Pressure 136/52 L 142/79 H Pulse Oximetry 97 97 Oxygen Delivery Method Nasal Cannula Nasal Cannula Oxygen Flow Rate 1 2 07/09/25 02:38 07/09/25 03:53 07/09/25 04:09 Temperature 99.1 F Pulse Rate 111 H 107 H 109 H Respiratory Rate 20 17 17 Blood Pressure 144/48 H 111/59 L Pulse Oximetry 97 98 Oxygen Delivery Method Nasal Cannula Aerosol Mask Oxygen Flow Rate 2 BMI result Body Mass Index 27.6 Const Other: Ill-appearing General: alert, awake, diaphoretic and ill appearing; No healthy appearing, comfortable, confusion, intoxicated appearing, lethargic or patient obtunded Nutritional Appearance: well nourished Orientation/consciousness: patient oriented x3, No confusion, No patient obtunded and No lethargic HENIA Head: Yes normocephalic and Yes atraumatic Eyes Eyelids: Yes eyelids normal Conjunctivae: conjunctivae normal Sclerae: sclerae normal Corneas: corneas normal Pupils: Equal, round and reactive pupils present EOM: EOMs intact bilaterally Neck Neck: Yes full ROM Resp Effort & Inspection: normal respiratory effort, able to speak in complete sentences, no audible wheezes and not labored Auscultation: clear to auscultation bilaterally Cardio Rate: tachycardic Rhythm: abnormal rhythm irregularly irregular GI Inspection: No distended Palpation (GI): Soft to palpation, not firm, nontender, no guarding and not rigid Skin General skin exam: elasticity normal Neuro General: patient oriented x3, No confusion and No patient obtunded Cranial nerves: Yes Equal, round and reactive pupils present and Yes Bilaterally intact EOM present Cognition (Neuro): normal cognition Extrem Other: Moving all extremities well without any obvious deformities Course Reevaluation(s) Reevaluation #1: the patient quite tachycardic similar between 140 and 170, appears to be atrial fibrillation with rapid ventricular response and occasional PACs. she is febrile with temp a 103.1?, blood cultures were ordered, her clinical picture is most consistent with influenza with cough, congestion fevers and body aches. A one-view chest will be obtained. We are treating her security at by the dressing your fever with IV Tylenol IV fluids. given the grossly abnormal vital signs including a fever of 103.1 and significant tachycardia a sepsis alert was called. I do suspect this is likely a viral in origin but the patient may have a superimposed COPD exacerbation which would also trigger a sepsis. She was given IV fluids and so far does not meet criteria for severe sepsis. sepsis focused exam performed Time: 00:47 Reevaluation #2: patient's heart rate was gradually improving with IV fluids and antipyretics, however she was still spiking into the 140s and a decided to give her a push dose of antiarrhythmic with Cardizem 15 mg IV. She did not fact test positive for influenza. Time: 02:01 Reevaluation #3: the patient had a slight improvement with Cardizem but rebounded back up his high as 150. We will start her on a Cardizem drip, that she would have some improvement. We will start the patient Eliquis. Anticipate admission once the patient's heart rate is better controlled Time: 02:17 Additional Reevaluation(s): I Catherine William PA-C have accepted care of the patient and signed out pending admission. I reach back out to the hospitalist, they would like to obtain TSH and T4, their concern is that the patient maybe amidst thyroid storm/thyroiditis. Patient is also struggling, she has expiratory wheezes posterior gould, adding an updraft, 2 g of magnesium, 2 mg of morphine, and 60 mg of Solu-Medrol. Labs back, T4 elevated at 5, TSH low at less than 0.01, it has been persistently low since last year, however the bump in T4 is new, T3 pending. 444 am patient much improved after the breathing treatment, she is comfortable in appearance, her heart rate is hovering between 109 and 117, I reached back out to the hospitalist, Medications Administered Generic Name Dose Route Start Last Admin Trade Name Freq PRN Reason Stop Dose Admin Lactated Ringer's 1,000 mls @ 125 mls/hr 07/09/25 02:30 07/09/25 02:36 Lr IVCONT 125 mls/hr .Q8H HOME Administration Discontinued Medications Generic Name Dose Route Start Last Admin Trade Name Freq PRN Reason Stop Dose Admin Apixaban 10 mg 07/09/25 02:11 07/09/25 02:37 Apixaban 5 Mg Tablet PO 07/09/25 02:12 10 mg ONCE ONE Administration Levalbuterol HCl 3.75 mg/ 0 mg 07/09/25 03:43 07/09/25 03:55 Ipratropium [place] 0.5 mg INHALE 07/09/25 03:44 11.5 dose ONCE ONE Administration Diltiazem HCl 15 mg 07/09/25 01:45 07/09/25 01:50 Diltiazem Hcl 50 Mg/10 Ml Vial IVPUSH 07/09/25 01:46 15 mg STAT STA Administration Lactated Ringer's 1,000 mls @ 999 mls/hr 07/09/25 00:30 07/09/25 02:17 Lr IV 07/09/25 01:30 Infused .Q1H1M HOME Infusion Acetaminophen 1,000 mg in 100 mls @ 400 mls/hr 07/09/25 00:17 07/09/25 00:45 Ofirmev IV 07/09/25 00:31 Infused ONCE ONE Infusion Doxycycline Hyclate 100 mg/ 250 mls @ 166.67 mls/hr 07/09/25 00:41 07/09/25 02:34 Sodium Chloride IV 07/09/25 02:10 Infused ONCE ONE Infusion Lactated Ringer's 1,000 mls @ 999 mls/hr 07/09/25 00:45 07/09/25 02:17 Lr IV 07/09/25 01:45 Infused .Q1H1M HOME Infusion Magnesium Sulfate 2 gm in 50 mls @ 150 mls/hr 07/09/25 03:29 07/09/25 04:07 Magnesium Sulfate/H2o IV 07/09/25 03:48 Infused ONCE ONE Infusion Ketorolac Tromethamine 30 mg 07/09/25 01:40 07/09/25 01:44 Ketorolac Tromethamine 30 Mg/Ml Vial IVPUSH 07/09/25 01:41 30 mg ONCE ONE Administration Methylprednisolone Sodium Succinate 60 mg 07/09/25 03:29 07/09/25 03:39 Methylprednisolone Sod Succ 125 Mg/2 Ml Vial IVPUSH 07/09/25 03:30 60 mg ONCE ONE Administration Morphine Sulfate 2 mg 07/09/25 03:29 07/09/25 03:46 Morphine Sulfate 4 Mg/Ml Cartridge IVPUSH 07/09/25 03:30 2 mg ONCE ONE Administration Protocol Ondansetron HCl 4 mg 07/09/25 00:19 07/09/25 00:34 Ondansetron Hcl 4 Mg/2 Ml Vial IVPUSH 07/09/25 00:20 4 mg ONCE ONE Administration Oseltamivir Phosphate 75 mg 07/09/25 03:32 07/09/25 04:09 Oseltamivir Phosphate 75 Mg Capsule PO 07/09/25 03:33 75 mg ONCE ONE Administration Medical Decision Making Medical Decision Making MDM Narrative: 59-year-old female with past medical history as above presents for evaluation of flu-like symptoms, body aches. She is quite tachycardic on arrival with what appears to be new onset AFib. She did have a recent significant cardiac workup that included echocardiogram, myocardial perfusion scan, stress test and outpatient cardiac catheterization. She had a normal ejection fraction of 63%, no evidence of significant coronary artery disease. She has never had AFib previously per her report. Her lungs are clear to auscultation she also had a recent CT angiography 2 months ago that did not show any evidence of pulmonary embolism. I think the most likely diagnosis at this time is influenza with new onset AFib due to her fever and infectious process. Labs pending, viral swabs pending. Differential Diagnosis Differential Diagnoses: The differential diagnosis associated with the presentation includes Influenza COVID-19 Pneumonia COPD Sepsis PE less likely new onset AFib Admission/Observation Consideration of admission/observation: Escalation of care including admission/observation considered Consult Healthcare Provider Management of the patient was discussed with: Hospitalist Lab Data MDM Lab Attestation statement: I reviewed the patient's lab results. no leukocytosis or anemia. Normal platelet count. No electrolyte abnormalities warranting dimension. Troponin within normal limits. 07/09/25 00:35 07/09/25 00:35 Labs: Lab Results 07/09/25 07/09/25 07/09/25 Range/Units 00:33 00:34 00:35 WBC 5.7 (4.8-10.8) X10*3/uL RBC 4.89 (4.20-5.50) X10*6/uL Hgb 13.1 (12.0-16.0) g/dl Hct 39.5 (37.0-47.0) % MCV 80.8 (80.0-98.0) fL MCH 26.8 L (27.0-33.0) pg MCHC 33.2 (31.0-35.0) g/dl RDW 14.6 (11.0-16.0) % Plt Count 261 (160-400) X10*3/uL MPV 9.9 (9.4-12.3) fL Immature Gran % (Auto) 0.4 (0.0-0.4) % Neut % (Auto) 83.5 H (45-73) % Lymph % (Auto) 9.0 L (20-40) % [place] % (Auto) 6.9 (2-11) % Eos % (Auto) 0.0 (0-4) % Baso % (Auto) 0.2 (0-2) % Lymph # (Auto) 0.5 L (1.2-4.9) X10*3/uL [place] # (Auto) 0.4 (0.1-1.2) X10*3/uL Eos # (Auto) 0.0 (0.0-0.4) X10*3/uL Baso # (Auto) 0.0 (0.0-0.2) X10*3/uL Abs Immat Gran (auto) 0.02 (0.00-0.03) X10*3/uL Absolute Neuts (auto) 4.7 (2.0-8.3) x10*3/uL Absolute Nucleated RBC 0.000 (0.0-0.012) X10*3/uL Nucleated RBC % (auto) 0.0 (0.0-0.2) /100WBC VBG pH (7.32-7.43) VBG pCO2 mmHg VBG pO2 mmHg VBG HCO3 (22-26) mmol/L VBG O2 Saturation % VBG Base Excess mmol/L Sodium 140 (135-145) mmol/L Potassium 3.7 (3.3-5.1) mmol/L Chloride 109 H (96-108) mmol/L Carbon Dioxide 22 (22-29) mmol/L Anion Gap 13 (12-20) BUN 10 (9-16) mg/dL Creatinine 0.60 (0.5-1.4) mg/dL Estim Creat Clear Calc 109.8 Estimated GFR > 60 Random Glucose 156 H (60-115) mg/dL Lactic Acid 1.8 (0.5-2.0) mmol/L Calcium 9.6 (8.4-10.2) mg/dL Total Bilirubin 0.4 (0.0-1.0) mg/dL AST 18 (5-31) U/L ALT 21 (0-31) U/L Alkaline Phosphatase 91 (39-117) U/L Troponin I High Sens 5.3 D (<3.5-17.0) ng/L NT-Pro-B Natriuret Pep 2057.5 H (<300) pg/mL Total Protein 7.2 (6.5-8.0) g/dL Albumin 4.0 (3.5-5.0) g/dL TSH < 0.01 L (0.32-4.0) uIU/mL Free T4 > 5.00 H (0.71-1.85) ng/dL Urine Color Urine Appearance Urine pH (5.0-9.0) Ur Specific [place] (1.005-1.025) Urine Protein (Neg-Trace) mg/dL Urine Glucose (UA) (Negative) mg/dL Urine Ketones (Negative) mg/dL Urine Blood (Negative) Urine Nitrite (Negative) Ur Leukocyte Esterase (Negative) Urine RBC (0-2) /HPF Urine WBC (0-5) /HPF Ur Squamous Epith Cells (0-2) /HPF Urine Bacteria (None Seen) Hyaline Casts (0-2) /LPF Influenza Type A (PCR) POSITIVE A (Negative) Influenza Type B (PCR) NEGATIVE (Negative) RSV RNA Qual (PCR) NEGATIVE (Negative) SARS-CoV-2 RNA (RT-PCR) NEGATIVE (Negative) 07/09/25 07/09/25 Range/Units 02:08 03:49 WBC (4.8-10.8) X10*3/uL RBC (4.20-5.50) X10*6/uL Hgb (12.0-16.0) g/dl Hct (37.0-47.0) % MCV (80.0-98.0) fL MCH (27.0-33.0) pg MCHC (31.0-35.0) g/dl RDW (11.0-16.0) % Plt Count (160-400) X10*3/uL MPV (9.4-12.3) fL Immature Gran % (Auto) (0.0-0.4) % Neut % (Auto) (45-73) % Lymph % (Auto) (20-40) % [place] % (Auto) (2-11) % Eos % (Auto) (0-4) % Baso % (Auto) (0-2) % Lymph # (Auto) (1.2-4.9) X10*3/uL [place] # (Auto) (0.1-1.2) X10*3/uL Eos # (Auto) (0.0-0.4) X10*3/uL Baso # (Auto) (0.0-0.2) X10*3/uL Abs Immat Gran (auto) (0.00-0.03) X10*3/uL Absolute Neuts (auto) (2.0-8.3) x10*3/uL Absolute Nucleated RBC (0.0-0.012) X10*3/uL Nucleated RBC % (auto) (0.0-0.2) /100WBC VBG pH 7.34 (7.32-7.43) VBG pCO2 38 mmHg VBG pO2 70 mmHg VBG HCO3 21 L (22-26) mmol/L VBG O2 Saturation 91.0 % VBG Base Excess -4.2 mmol/L Sodium (135-145) mmol/L Potassium (3.3-5.1) mmol/L Chloride (96-108) mmol/L Carbon Dioxide (22-29) mmol/L Anion Gap (12-20) BUN (9-16) mg/dL Creatinine (0.5-1.4) mg/dL Estim Creat Clear Calc Estimated GFR Random Glucose (60-115) mg/dL Lactic Acid (0.5-2.0) mmol/L Calcium (8.4-10.2) mg/dL Total Bilirubin (0.0-1.0) mg/dL AST (5-31) U/L ALT (0-31) U/L Alkaline Phosphatase (39-117) U/L Troponin I High Sens (<3.5-17.0) ng/L NT-Pro-B Natriuret Pep (<300) pg/mL Total Protein (6.5-8.0) g/dL Albumin (3.5-5.0) g/dL TSH (0.32-4.0) uIU/mL Free T4 (0.71-1.85) ng/dL Urine Color Yellow Urine Appearance Clear Urine pH 6.0 (5.0-9.0) Ur Specific [place] 1.010 (1.005-1.025) Urine Protein Trace (Neg-Trace) mg/dL Urine Glucose (UA) Negative (Negative) mg/dL Urine Ketones 15 (Negative) mg/dL Urine Blood Negative (Negative) Urine Nitrite Negative (Negative) Ur Leukocyte Esterase Negative (Negative) Urine RBC 0-2 (0-2) /HPF Urine WBC 0-5 (0-5) /HPF Ur Squamous Epith Cells 3-5 (0-2) /HPF Urine Bacteria Trace (None Seen) Hyaline Casts 0-2 (0-2) /LPF Influenza Type A (PCR) (Negative) Influenza Type B (PCR) (Negative) RSV RNA Qual (PCR) (Negative) SARS-CoV-2 RNA (RT-PCR) (Negative) Independent Interpretation I performed an independent interpretation of an: EKG and Plain X-Ray ( No significant focal infiltrates, pleural effusions or pneumothorax) Interpretation: atrial fibrillation with RVR. Rate of 166 beats minute. Radiology Impression Discussion of test interpretation with radiology: I have reviewed the radiologist's reading. Radiologist Impression: Findings: Mild bibasilar atelectasis/pneumonitis with mild elevation of the left hemidiaphragm. No definite pneumothorax or pleural effusion. Imaged mediastinum and imaged osseous structures appear unchanged. IMPRESSION: Mild bibasilar atelectasis/pneumonitis This document has been electronically signed by: Yoseph Morton MD on 07/09/2025 02:13:35 Discharge Plan Discharge Clinical Impression: Influenza A, Atrial fibrillation, new onset Patient Disposition: Admitted As Inpatient Print Language: German
[2025-07-09] MEDS: Lactated Ringers 1,000 ML 999 ML IV ×2 (00:35→00:58)
[2025-07-09 00:40] LABS: MANUAL DIFF FLAG NO
[2025-07-09 00:42] LABS: Hematocrit 39.5 % (37.0-47.0); Hemoglobin 13.1 g/dl (12.0-16.0); Imm Gran Abs Auto 0.02 X10*3/uL (0.00-0.03); Imm Gran Pct Auto 0.4 % (0.0-0.4); Lymphocytes Absolute Auto 0.5 X10*3/uL (1.2-4.9); Mean Corpuscular HGB Conc 33.2 g/dl (31.0-35.0); Mean Corpuscular Hemoglobin 26.8 pg (27.0-33.0); Mean Corpuscular Volume 80.8 fL (80.0-98.0); NRBC Abs Auto 0.000 X10*3/uL (0.0-0.012); NRBC Pct Auto 0.0 /100WBC (0.0-0.2); Platelet Count 261 X10*3/uL (160-400); Red Blood Count 4.89 X10*6/uL (4.20-5.50); White Blood Count 5.7 X10*3/uL (4.8-10.8)
--- NOTE | 2025-07-09 01:02 | PC.NURSE ---
Pt biba from home, reporting flu-like symptoms x2 days, having fever, chills, cough, nausea and chest pain. Pt found to have temp of 103.1 F oral and tachycardic in the 150-170s. Pt reports having a hx of copd/asthma, current smoker. Denies feeling short of breath, breathing unlabored, stable spO2. Bilat 20g IV placed in ACs. Labs obtained. Pt given IV Tylenol and fluids. Rectal temp was obtained after tylenol was administered and found to be 103.4. Sepsis called at 0045. Pt has doxycycline infusing as ordered. Plan of care on going.
[2025-07-09 01:05] LABS: Alanine Aminotransferase 21 U/L (0-31); Albumin Level 4.0 g/dL (3.5-5.0); Alkaline Phosphatase 91 U/L (39-117); Anion Gap 13 (12-20); Aspartate Amino Transferase 18 U/L (5-31); Blood Urea Nitrogen 10 mg/dL (9-16); Calcium 9.6 mg/dL (8.4-10.2); Carbon Dioxide 22 mmol/L (22-29); Chloride 109 mmol/L (96-108); Creatinine Clr Calc Pharmacy 109.8; Estimated Glomerular Filt Rate > 60; Potassium 3.7 mmol/L (3.3-5.1); Sodium 140 mmol/L (135-145); Total Protein 7.2 g/dL (6.5-8.0)
[2025-07-09 01:11] LABS: NT Pro B Type Natriuretic Pept 2057.5 pg/mL (<300); Troponin-I High Sensitivity 5.3 ng/L (<3.5-17.0)
[2025-07-09 01:19] LABS: Resp Syncy Virus RNA Qual PCR NEGATIVE (Negative); SARS COV2 PCR INHOUSE NEGATIVE (Negative)
--- OUTSIDE RECORDS SUMMARY | 2025-07-09 01:41 | XMS_ITS | Encounter Summary ---
Author Organization [employer] Address [address] [facility] [place] [address] Care Team Providers Care Physician Ophthalmologist Name Role Phone Virginie Monet MD Primary Care Provide r Reason for Visit * Reason Onset Date Comments Referral 10/02/2022 Encounter Details Date Type Department Care Team ([facility] st Contact Info) Description 10/02/2022 Telephone [facility] [address] [place], [place] [phone] Virginie Monet MD [address] [place] [address] Referral Social History Tobacco Use Types Packs/Day [...] 2:04 PM EDT Tc from Andreea Waller specialist wound care requesting a referral for occupational therapy evaluation for pt to be able to get a shower chair and electric lift chair . Please call to clarify at phone # [phone]. documented in this encounter Plan of Treatment Upcoming Encounters Date Type Department Care Team (Late st Contact Info) Description 08/11/2025 9:45 AM EST Office Visit [facility] [address] [place] [address] documented as of this encounter Visit Diagnoses Not on filedocumented in this encounter Care Teams Physician Ophthalmologist Relationship Specialty Start Date End Date Virginie Monet MD [address] [place] [address] PCP - General Family Medicine 07/30/20 documented as of this encounter
--- OUTSIDE RECORDS SUMMARY | 2025-07-09 01:41 | XMS_ITS | Encounter Summary ---
Author Organization [employer] Address [address] [place] [address] Care Team Providers Care Roustabout Pusher Name Role Phone Virginie Monet MD Primary Care Provide r Reason for Visit * Reason Comments Med Refill Encounter Details Date Type Department Care Team ([facility] st Contact Info) Description 01/03/2024 Refill [facility] [address] [place], [place] [phone] Virginie Monet MD [address] [place] [address] Anxiety Social History Tobacco Use Types Packs/Day [...] Description 08/11/2025 9:45 AM EST Office Visit [facility] [address] [place] [address] documented as of this encounter Visit Diagnoses Diagnosis Anxiety Anxiety state, unspecified documented in this encounter Additional Health Concerns Assessment Noted Time PHQ-9 Depression Total Score: 0 05/29/20 23 2:13 PM EST documented as of this encounter Care Teams Roustabout Pusher Relationship Specialty Start Date End Date Virginie Monet MD [address] [place] [address] PCP - General Family Medicine 07/30/20 documented as of this encounter
--- OUTSIDE RECORDS SUMMARY | 2025-07-09 01:41 | XMS_ITS | Encounter Summary ---
Author Organization [employer] Address [address] [facility] [address] [place] [address] Care Team Providers Care Logging Operations Inspector Name Role Phone Virginie Monet MD Primary Care Provide r Reason for Visit * Reason Onset Date Comments Med Refill 02/05/2023 Encounter Details Date Type Department Care Team ([facility] Contact Info) Description 02/05/2023 Telephone [facility] [address] [place], [place] [phone] Virginie Monet MD [address] [place] [address] Med Refill Social History Tobacco Use Types [...] Description 08/11/2025 9:45 AM EST Office Visit [facility] [address] [place] [address] documented as of this encounter Visit Diagnoses Not on filedocumented in this encounter Additional Health Concerns Assessment Noted Time PHQ-9 Depression Total Score: 0 11/15/19 23 9:09 AM EDT documented as of this encounter Care Teams Logging Operations Inspector Relationship Specialty Start Date End Date Virginie Monet MD [address] [place] [address] PCP - General Family Medicine 07/30/20 documented as of this encounter
--- OUTSIDE RECORDS SUMMARY | 2025-07-09 01:41 | XMS_ITS | Encounter Summary ---
Author Organization [employer] Address [address] [facility] 7t [place] [address] Care Team Providers Care Production Administrative Assistant Name Role Phone Virginie Monet MD Primary Care Provide r Reason for Visit * Reason Onset Date Comments Nurse Triage 12/14/2023 Encounter Details Date Type Department Care Team ([facility] Contact Info) Description 12/14/2023 Telephone [facility] [address] [place], [place] [phone] Virginie Monet MD [address] [place] [address] Nurse Triage Social History Tobacco Use Types [...] immediate release tablet To be sent to: [facility] documented in this encounter Plan of Treatment Upcoming Encounters Date Type Department Care Team (Late st Contact Info) Description 08/11/2025 9:45 AM EST Office Visit [facility] [address] [place] [address] documented as of this encounter Visit Diagnoses Diagnosis Chronic bilateral low back pain without sciatica documented in this encounter Additional Health Concerns Assessment Noted Time PHQ-9 Depression Total Score: 0 05/29/20 23 2:13 PM EST documented as of this encounter Care Teams Production Administrative Assistant Relationship Specialty Start Date End Date Virginie oMnet MD [address] [place] [address] PCP - General Family Medicine 07/30/20 documented as of this encounter
--- OUTSIDE RECORDS SUMMARY | 2025-07-09 01:41 | XMS_ITS | Encounter Summary ---
Author Organization [employer] Address [address] [facility] 7t [place] [address] Care Team Providers Care Information Assurance Analyst Name Role Phone Virginie Monet MD Primary Care Provide r Reason for Visit * Reason Comments Med Refill Encounter Details Date Type Department Care Team ([facility] st Contact Info) Description 01/22/2024 Refill [facility] [address] [place], [place] [phone] Virginie Monet MD [address] [place] [address] Anxiety Social History Tobacco Use Types Packs/Day [...] Description 08/11/2025 9:45 AM EST Office Visit [facility] [address] [place] [address] documented as of this encounter Visit Diagnoses Diagnosis Anxiety Anxiety state, unspecified documented in this encounter Additional Health Concerns Assessment Noted Time PHQ-9 Depression Total Score: 15 024 11:32 AM EDT documented as of this encounter Care Teams Information Assurance Analyst Relationship Specialty Start Date End Date Virginie Monet MD [address] [place] [address] PCP - General Family Medicine 07/30/20 documented as of this encounter
--- OUTSIDE RECORDS SUMMARY | 2025-07-09 01:41 | XMS_ITS | Encounter Summary ---
Author Organization [employer] Address [address] [facility] [address] 7t [place] [address] Care Team Providers Care B2B Sales Executive Name Role Phone Virginie Monet MD Primary Care Provide r Reason for Visit * Reason Comments Med Refill Encounter Details Date Type Department Care Team ([facility] st Contact Info) Description 04/11/2025 Refill [facility] [address] [place], [place] [phone] Virginie Monet MD [address] [place] [address] Prediabetes Social History Tobacco Use Types Packs/Day [...] Description 08/11/2025 9:45 AM EST Office Visit [facility] [address] [place] [address] documented as of this encounter Visit Diagnoses Diagnosis Prediabetes Other abnormal glucose documented in this encounter Additional Health Concerns Assessment Noted Time PHQ-9 Depression Total Score: 11 025 9:05 AM EDT documented as of this encounter Care Teams B2B Sales Executive Relationship Specialty Start Date End Date Virginie Monet MD [address] [place] [address] PCP - General Family Medicine 07/30/20 documented as of this encounter
--- OUTSIDE RECORDS SUMMARY | 2025-07-09 01:41 | XMS_ITS | Clinical Summary ---
Author Organization [facility] Address [address] [facility] [address] [place] [phone] Phone Care Team Providers Care Lumber Stacker Name Role Phone Gurpreet Tsai MD Primary [...] topic Medical Devices Not on file Insurance [employer] MEDICARE PART A & B [facility] & B [place] MED[place] PART A & B [facility] A & B [facility] & B [facility] PART [facility] & B [place] MEDICARE PART A & B [facility] MEDIC[facility] PART A & B [facility] MEDICARE PART A & B Care Teams Lumber Stacker Relationship Specialty Start Date End Date Gurpreet Tsai MD [address] [place] [phone] PCP - General Internal Medicine 08/18/16 Additional Source Comments The information contained in this document represents components of the legal health record. It is not the complete legal health record.[facility]
--- OUTSIDE RECORDS SUMMARY | 2025-07-09 01:41 | XMS_ITS | Encounter Summary ---
Author Organization [employer] Address [address] [facility] 7t [place] [address] Care Team Providers Care Yard Hostler Name Role Phone Virginie Monet MD Primary Care Provide r Reason for Visit * Reason Onset Date Comments Med Refill 06/04/2024 Encounter Details Date Type Department Care Team ([facility] Contact Info) Description 06/04/2024 Telephone [facility] [address] [place], [place] [phone] Virginie Monet MD [address] [place] [address] Med Refill Social History Tobacco Use Types [...] immediate release tablet To be sent to: [id number] - [place], [place] - [address] [facility] documented in this encounter Plan of Treatment Upcoming Encounters Date Type Department Care Team (Late st Contact Info) Description 08/11/2025 9:45 AM EST Office Visit [facility] [address] [place] [address] documented as of this encounter Visit Diagnoses Not on filedocumented in this encounter Additional Health Concerns Assessment Noted Time PHQ-9 Depression Total Score: 15 024 11:32 AM EDT documented as of this encounter Care Teams Yard Hostler Relationship Specialty Start Date End Date Virginie Monet MD [address] [place] [address] PCP - General Family Medicine 07/30/20 documented as of this encounter
--- OUTSIDE RECORDS SUMMARY | 2025-07-09 01:41 | XMS_ITS | Encounter Summary ---
Author Organization [employer] Address [address] [facility] 7t [place] [address] Care Team Providers Care Construction Cost Estimator Name Role Phone Virginie Monet MD Primary Care Provide r Reason for Visit * Reason Onset Date Comments Appointment Request 02/05/2024 Encounter Details Date Type Department Care Team ([facility] Contact Info) Description 02/05/2024 Telephone [facility] [address] [place], [place] [phone] Virginie Monet MD [address] [place] [address] Appointment Request Social History Tobacco Use Types [...] Description 08/11/2025 9:45 AM EST Office Visit [facility] [address] [place] [address] documented as of this encounter Visit Diagnoses Not on filedocumented in this encounter Additional Health Concerns Assessment Noted Time PHQ-9 Depression Total Score: 15 024 11:32 AM EDT documented as of this encounter Care Teams Construction Cost Estimator Relationship Specialty Start Date End Date Virginie Monet MD [address] [place] [address] PCP - General Family Medicine 07/30/20 documented as of this encounter
--- OUTSIDE RECORDS SUMMARY | 2025-07-09 01:41 | XMS_ITS | Encounter Summary ---
Author Organization [employer] Address [address] [facility] 7t [place] [address] Care Team Providers Care Press Shop Supervisor Name Role Phone Virginie Monet MD Primary Care Provide r Encounter Details Date Type Department Care Team (Late Contact Info) Description 08/23/2022 Orders Only [facility] [address] [place] [address] [phone] Yolanda Rose DO [address] [place], [place] [phone] Social History Tobacco Use Types Packs/Day Years [...] Description 08/11/2025 9:45 AM EST Office Visit [facility] [address] [place] [phone] documented as of this encounter Visit Diagnoses Not on filedocumented in this encounter Care Teams Press Shop Supervisor Relationship Specialty Start Date End Date Virginie Monet MD [address] [place] [address] [phone] PCP - General Family Medicine 07/30/20 documented as of this encounter
--- OUTSIDE RECORDS SUMMARY | 2025-07-09 01:41 | XMS_ITS | Encounter Summary ---
Author Organization [employer] Address [address] [facility] [address] 7[address] [place] [address] Care Team Providers Care Cement Finisher Name Role Phone Virginie Monet MD Primary Care Provide r Encounter Details Date Type Department Care Team ([facility] Contact Info) Description 05/19/2024 Orders Only [facility] [address] [place] [address] Virginie Monet MD [address] [place] [address] Social History Tobacco Use Types Packs/Day Years [...] Description 08/11/2025 9:45 AM EST Office Visit [facility] [address] [place] [address] documented as of this encounter Visit Diagnoses Not on filedocumented in this encounter Additional Health Concerns Assessment Noted Time PHQ-9 Depression Total Score: 15 024 11:32 AM EDT documented as of this encounter Care Teams Cement Finisher Relationship Specialty Start Date End Date Virginie Monet MD [address] [place] [address] PCP - General Family Medicine 07/30/20 documented as of this encounter
--- OUTSIDE RECORDS SUMMARY | 2025-07-09 01:41 | XMS_ITS | Encounter Summary ---
Author Organization [employer] Address [address] [facility] [address] 7[address] [place] [address] Care Team Providers Care Assembler Engine Name Role Phone Virginie Monet MD Primary Care Provide r Encounter Details Date Type Department Care Team ([facility] st Contact Info) Description 10/12/2023 Orders Only [facility] [address] [place], [place] [phone] Virginie Monet MD [address] [place], [place] [phone] Social History Tobacco Use Types Packs/Day Years [...] 08/11/2025 9:45 AM EST Office Visit [facility] [address] [place] [address] documented as of this encounter Visit Diagnoses Not on filedocumented in this encounter Additional Health Concerns Assessment Noted Time PHQ-9 Depression Total Score: 0 05/29/20 23 2:13 PM EST documented as of this encounter Care Teams Assembler Engine Relationship Specialty Start Date End Date Virginie Monet MD [address] [place] [address] PCP - General Family Medicine 07/30/20 documented as of this encounter
--- OUTSIDE RECORDS SUMMARY | 2025-07-09 01:42 | XMS_ITS | Clinical Summary ---
Author Organization [facility] it[facility] Address [address] [place] [address] Care Team Providers Care Neurological Physiotherapist Name Role Phone Unavailable Primary Care Provider [...]
--- OUTSIDE RECORDS SUMMARY | 2025-07-09 01:42 | XMS_ITS | Encounter Summary ---
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 Contact pt at [phone] documented in this encounter Plan of Treatment Upcoming Encounters Date Type Department Care Team (Late st Contact Info) Description 08/11/2025 9:45 AM EST Office Visit [facility] [address] [place] [address] documented as of this encounter Visit Diagnoses Not on filedocumented in this encounter Additional Health Concerns Assessment Noted Time PHQ-9 Depression Total Score: 0 09/17/19 25 10:52 AM EST documented as of this encounter Care Teams Barrel Centerer Relationship Specialty Start Date End Date Virginie Monet MD [address] [place] [address] PCP - General Family Medicine 07/30/20 documented as of this encounter
--- OUTSIDE RECORDS SUMMARY | 2025-07-09 01:42 | XMS_ITS | Encounter Summary ---
Author Organization [employer] Address [address] [facility] [address] 7t [place] [address] Care Team Providers Care Supervisor Car Installations Name Role Phone Virginie Monet MD Primary Care Provide r Encounter Details Date Type Department Care Team ([facility] Contact Info) Description 05/26/2025 Telephone [facility] [address] [place], [place] [phone] Virginie Monet MD [address] [place] [address] Social History Tobacco Use Types Packs/Day Years [...] Description 08/11/2025 9:45 AM EST Office Visit [facility] [address] [place] [address] documented as of this encounter Visit Diagnoses Not on filedocumented in this encounter Additional Health Concerns Assessment Noted Time PHQ-9 Depression Total Score: 11 025 9:05 AM EDT documented as of this encounter Care Teams Supervisor Car Installations Relationship Specialty Start Date End Date Virginie Monet MD [address] [place] [address] PCP - General Family Medicine 07/30/20 documented as of this encounter
--- OUTSIDE RECORDS SUMMARY | 2025-07-09 01:42 | XMS_ITS | Encounter Summary ---
Author Organization [employer] Address [address] [facility] 7t [place] [address] Care Team Providers Care Civil Preparedness Coordinator Name Role Phone Virginie Monet MD Primary Care Provide r Reason for Visit * Reason Comments Med Refill Encounter Details Date Type Department Care Team ([facility] st Contact Info) Description 02/19/2025 Refill [facility] [address] [place], [place] [phone] Virginie Monet MD [address] [place] [address] Depression, unspecified depression type Social History Tobacco [...] Description 08/11/2025 9:45 AM EST Office Visit [facility] [address] [place] [address] documented as of this encounter Visit Diagnoses Diagnosis Depression, unspecified depression type documented in this encounter Additional Health Concerns Assessment Noted Time PHQ-9 Depression Total Score: 0 09/17/19 25 10:52 AM EST documented as of this encounter Care Teams Civil Preparedness Coordinator Relationship Specialty Start Date End Date Virginie Monet MD [address] [place] [address] PCP - General Family Medicine 07/30/20 documented as of this encounter
--- OUTSIDE RECORDS SUMMARY | 2025-07-09 01:42 | XMS_ITS | Clinical Summary ---
Author Organization [employer] Address [address] [facility] [address] [place] [address] Care Team Providers Care Clinical Data Analyst Name Role Phone Virginie Monet MD [...] puffs every 4 (four) hours. 2020 Active SUMAtriptan (Imitrex) 20 MG/ACT nasal spray Administer 1 spray into affected nostril(s) See administration instructions. [place] 1 spray by intranasal route once; if headache returns, dose may be repeated once and after 2 hours, do not exceed 40 mg per day. Active Aspirin Low Dose 81 MG EC tablet Take 81 mg by mouth in the morning. 2021 Active Narcan 4 MG/0.1ML nasal spray CALL 911. SPR CONTENTS OF ONE SPRAYER (0.1ML) INTO ONE NOSTRIL. REPEAT IN 2-3 MIN IF SYMPTOMS OF OPIOID EMERGENCY PERSIST, ALTERNATE NOSTRILS 2021 Active rOPINIRole (Requip) 3 MG tablet Take 3 mg by mouth in the morning. 2022 Active glycerin (Adult) 2 g suppository Insert 1 suppository (2 g) into the rectum if needed each day for constipation. 90 suppository 3 2022 Active Blood Glucose Monitoring Suppl (ONE [...] of breath. 75 mL 1 2022 Active Trelegy Ellipta 200-62.5-25 MCG/ACT aerosol powder INHALE 1 PUFF BY MOUTH DAILY 2023 Active Blood Pressure Monitoring (Blood Pressure Cuff) miscIndications: Essential hypertension 1 each Once daily. 1 each 2023 Active Lancets (College TonightTouch Delica Plus Dheity43C) miscIndications: Type 2 diabetes mellitus with hyperglycemia, without long-term current use of insulin (HCC) USE DIRECTED TWICE DAILY 100 each 11 2023 Active OneTouch Ultra Test test stripIndications :Type 2 diabetes mellitus with hyperglycemia, without long-term current use of insulin (HCC) USE DIRECTED TWICE DAILY 100 strip 11 2023 Active polyethylene glycol, PEG, 3350 (Glycolax) 17 GM/SCOOP powder MIX 17 GRAMS(1 CAPFUL) INTO 8 TO 12 OUNCES OF FLUID LIKE WATER AND DRINK BY MOUTH EVERY NIGHT AT BEDTIME NEEDED CONSTIPATION 510 g 1 2023 Active Continuous Glucose Applications System Analyst (FreeStyle Shane 3 [place]) deviceIndication s:Type 2 diabetes mellitus with hyperglycemia, with long-term current use of insulin (HCC) 1 each Once per day. Use as directed for CGM 1 each 2024 Active Continuous Glucose Sensor (FreeStyle Shane 3 Plus Sensor) miscIndications: Type 2 diabetes mellitus with hyperglycemia, with long-term current use of insulin (HCC) 1 each every 15 days. Apply 1 every 15 days as directed for CGM 2 each 2024 Active glucose blood (FreeStyle Precision Arvin Test) test stripIndications :Type 2 diabetes mellitus with hyperglycemia, with long-term current use of insulin (FORM[facility]LY [facility]) Use to test blood sugar 2 times daily in case of CGM failure or extremes of BG 100 each 09/30 Active insulin lispro (HumaLOG) 100 UNIT/ML injectionIndicat ions:Type 2 diabetes mellitus with hyperglycemia, without long-term current use of insulin ([facility]) ADMINISTER PER SLIDING SCALE WITH 1 MEAL [...] IN THE MORNING 90 capsule 2024 Active semaglutide (Ozempic, 1 MG/DOSE,) 4 MG/3ML solution pen-injectorIndi cations:Type 2 diabetes mellitus with hyperglycemia, without long-term current use of insulin ([facility]) Inject 1 mg under the skin 1 (one) time per week. 1 each 2024 Active losartan-hydroCH LOROthiazide (Hyzaar) 50-12.5 MG tabletIndication s:Essential hypertension TAKE 1 TABLET BY MOUTH DAILY 90 tablet 1 2024 Active amLODIPine (Norvasc) 5 MG tablet Take 1 tablet by mouth Once per day. 2024 Active oxyCODONE (Roxicodone) 5 MG immediate release tabletIndication s:Chronic bilateral low back pain without sciatica Take 1 tablet (5 mg) by mouth every 8 (eight) hours if needed for severe pain for up to 28 days. Do not start before June 17, 2025. 84 tablet 07/15 Active magnesium oxide (Mag-Ox) 400 (240 Mg) MG tablet Take 1 tablet by mouth at bedtime. 2024 Active metoprolol succinate XL (Toprol-XL) 25 MG 24 hr tablet Take 1 tablet by mouth Once per day. 2024 Active montelukast (Singulair) 10 MG tablet Take 1 tablet by mouth at bedtime. 2023 Active nicotine (Nicoderm, Step 2) 14 MG/24HR patch 1 patch 1 (one) time each day at the same time. 2024 Active hydrOXYzine HCl (Atarax) 25 MG tablet Take 1 tablet by mouth if needed in the morning, at noon, and at bedtime for anxiety. 2024 Active levothyroxine (Synthroid, Levoxyl) 125 MCG tabletIndication s:Michael's thyroiditis TAKE 1 TABLET(125 MCG) BY MOUTH DAILY BEFORE BREAKFAST 30 tablet 3 2024 Active atorvastatin (Lipitor) 40 MG tabletIndication s:Dyslipidemia Take 1 tablet (40 mg) by mouth at bedtime. 90 tablet 1 2024 Active metFORMIN (Glucophage) 500 MG tabletIndication s:Type 2 diabetes mellitus without complication, without long-term current use of insulin (HCC) TAKE 1 TABLET BY MOUTH TWICE DAILY WITH THE MORNING AND EVENING MEAL 180 tablet 1 2024 Active neomycin-polymyx in-pramoxine (Neosporin Plus Pain Relief MS) 1 % creamIndications :Skin infection Apply topically 2 times daily. 14 g 2024 Active B Complex Vitamins (RA B-Complex with B-12) tablet Take 1 tablet by mouth in the morning. 06/16 Discontinued( Med list cleanup (will not trigger notification to Pharmacy)) diclofenac (Voltaren) 50 MG EC tablet Take 1 tablet by mouth in the morning and at bedtime. 06/16 Discontinued( Med list cleanup (will not trigger notification to Pharmacy)) fluticasone (Flonase Allergy Relief) 50 MCG/ACT nasal spray Administer 1-2 sprays into affected nostril(s) in the morning. 06/16 Discontinued( Med list cleanup (will not trigger notification to Pharmacy)) lactulose (Chronulac) 10 GM/15ML solution Take 15 mL by mouth in the morning and 15 mL at noon and 15 mL in the evening and 15 mL before bedtime. For constipation.. 06/16 Discontinued( Med list cleanup (will not trigger notification to Pharmacy)) Lidocaine 4 % patch 1 patch by Other route if needed each day. Apply to L upper tibia daily prn daily 06/16 Discontinued( Med list cleanup (will not trigger notification to Pharmacy)) loperamide (Imodium A-D) 2 MG tablet Take 2 tablets by mouth. Take 2 tablets by oral route after 1st loose stool and 1 tablet (2mg) after each next bowel movement; do not exceed 16 mg in 24 hours 06/16 Discontinued( Med list cleanup (will not trigger notification to Pharmacy)) ondansetron (Zofran) 4 MG tablet Take 1 tablet by mouth in the morning and at bedtime. Take 2 tablet by oral route 2 times every day 06/16 Discontinued( Med list cleanup (will not trigger notification to Pharmacy)) rOPINIRole (Requip) 4 MG tablet Take 1 tablet by mouth at bedtime. 06/16 Discontinued( Med list cleanup (will not trigger notification to Pharmacy)) Umeclidinium-Cole anterol (Anoro Ellipta) 62.5-25 MCG/ACT aerosol powder Inhale 1 puff in the morning. Inhale 1 puff by inhalation route every day at the same time each day. 06/16 Discontinued( Med list cleanup (will not trigger notification to Pharmacy)) Continuous Blood Gluc Sensor (FreeStyle Shane 2 Sensor) miscIndications: Type 2 diabetes mellitus without complication, without long-term current use of insulin (HCC) Use 1 sensor every 14 days per package directions 2 each 06/16 Discontinued( Med list cleanup (will not trigger notification to Pharmacy)) Continuous Blood Gluc Applications System Analyst (FreeStyle Shane 2 [place]) deviceIndication s:Type 2 diabetes mellitus without complication, without long-term current use of insulin (HCC) Use reader for CGM per package directions 1 each 06/16 Discontinued( Med list cleanup (will not trigger notification to Pharmacy)) atorvastatin (Lipitor) 40 MG tablet Take 1 tablet by mouth at bedtime. 06/30 Discontinued( Reorder (will not trigger notification to Pharmacy)) Flovent HFA 220 MCG/ACT inhaler Inhale 1 puff 2 times daily. 06/16 Discontinued( Med list cleanup (will not trigger notification to Pharmacy)) ondansetron ODT (Zofran-ODT) 4 MG disintegrating tablet DISSOLVE 1 TABLET ON THE TONGUE EVERY 6 HOURS 06/16 Discontinued( Med list cleanup (will not trigger notification to Pharmacy)) SUMAtriptan (Tosymra) 10 MG/ACT nasal spray Inhale 10 mg. 06/16 Discontinued( Med list cleanup (will not trigger notification to Pharmacy)) mineral oil enema Insert 1 enema into the rectum if needed in the morning and at bedtime for constipation. 266 mL 2 06/16 Discontinued( Med list cleanup (will not trigger notification to Pharmacy)) Continuous Blood Gluc Sensor (Dexcom G7 Sensor) miscIndications: Type 2 diabetes mellitus with hyperglycemia, without long-term current use of insulin ([facility]) 1 each 3 times daily. 1 each 06/16 Discontinued( Med list cleanup (will not trigger notification to Pharmacy)) nicotine (Nicotrol) 10 MG inhalerIndicatio ns:Smoker Inhale 1 puff in the morning. Inhale (1 UNITS) by inhalation route 6 times every day as needed for smoking cravings. 168 each 1 06/16 Discontinued( Med list cleanup (will not trigger notification to Pharmacy)) Blood Pressure Monitor kitIndications:E ssential hypertension Use as directed 3x/week 1 kit 06/16 Discontinued( Med list cleanup (will not trigger notification to Pharmacy)) primidone (Mysoline) 50 MG tablet Take 50 mg by mouth 2 times daily. 06/16 Discontinued( Med list cleanup (will not trigger notification to Pharmacy)) meloxicam (Mobic) 15 MG tablet Take 15 mg by mouth in the morning. 06/16 Discontinued( Med list cleanup (will not trigger notification to Pharmacy)) isosorbide mononitrate ER (Imdur) 30 MG 24 hr tablet Take 30 mg by mouth Once per day. 06/13 Discontinued( Therapy completed) Sodium Fluoride 5000 Plus 1.1 % cream BRUSH TEETH EVERY MORNING AND AT BEDTIME DIRECTED 06/16 Discontinued( Med list cleanup (will not trigger notification to Pharmacy)) amitriptyline (Elavil) 75 MG tabletIndication s:Fibromyalgia TAKE 1 TABLET(75 MG) BY MOUTH AT BEDTIME 90 tablet 06/16 Discontinued( Med list cleanup (will not trigger notification to Pharmacy)) ALPRAZolam (Xanax) 0.5 MG tabletIndication s:Anxiety TAKE 1 TABLET BY MOUTH NEEDED EVERY MORNING, EVERY AFTERNOON, AND EVERY NIGHT AT BEDTIME FOR UP TO 15 DAYS 45 tablet 06/16 Discontinued( Med list cleanup (will not trigger notification to Pharmacy)) nicotine (Nicoderm CQ) 21 MG/24HR patch Place 1 patch on the skin 1 (one) time each day at the same time. 30 patch 06/16 Discontinued( Med list cleanup (will not trigger notification to Pharmacy)) insulin lispro (HumaLOG Jacob KwikPen) 100 UNIT/ML injectionIndicat ions:Type 2 diabetes mellitus with hyperglycemia, without long-term current use of insulin (HCC) Check blood sugar before 1 meal ( breakfast or lunch) if sugar >250-299 administer 3 units, if 300-349, administer 6 units, if >350 administer 9 units and call office. 1 each 06/16 Discontinued( Med list cleanup (will not trigger notification to Pharmacy)) metFORMIN (Glucophage) 500 MG tabletIndication s:Prediabetes TAKE 1 TABLET BY MOUTH TWICE DAILY WITH THE MORNING AND EVENING MEAL 180 tablet 1 06/30 Discontinued( Reorder (will not trigger notification to Pharmacy)) levothyroxine (Synthroid, Levoxyl) 125 MCG tabletIndication s:Michael's thyroiditis TAKE 1 TABLET(125 MCG) BY MOUTH DAILY BEFORE BREAKFAST 30 tablet 3 06/29 Discontinued cyclobenzaprine (Flexeril) 10 MG tabletIndication s:Neck pain,Muscle spasm Take 1 tablet (10 mg) by mouth 3 times daily for 10 days. 30 tablet 06/16 Discontinued( Med list cleanup (will not trigger notification to Pharmacy)) oxyCODONE (Roxicodone) 5 MG immediate release tabletIndication s:Chronic bilateral low back pain without sciatica Take 1 tablet (5 mg) by mouth every 8 (eight) hours if needed for severe pain for up to 28 days. 84 tablet 06/15 Discontinued( Reorder (will not trigger notification to Pharmacy)) Active Problems Problem Noted Date Diagnosed Date GERD (gastroesophageal reflux disease) Chronic pain of both shoulders 06/30/2025 Skin infection 06/30/2025 Benign essential tremor 06/30/2025 Chronic fatigue 06/30/2025 Neck pain 03/26/2025 Assessment & Plan (03/26/2025 [...] oxycodone 5mg Q8H PRN Indication: fibromyalgia Last REGISTERED RADIOLOGIC TECHNOLOGIST Agreement: 12/09/24 Tier II (REGISTERED RADIOLOGIC TECHNOLOGIST visits every 3 months) - last eval 09/16/24 by PCP Assessment & Plan (06/13/2025 3:54 PM EST): Timeline: - 09/09/24: Group visit, utox/pill count as expected - 12/09/24: Group visit, utox/pill count as expected - 02/03/25: Group visit, utox/pill count as expected - 04/07/25: Group visit, utox/pill count as expected - 06/09/25: Group visit, utox/pill count as expected (BPI) Assessment & Plan (04/07/2025 1:27 PM EDT): [...] AM EDT): Dr Radha Schulz (psychiatrist) phone [phone], is now taking over of her mental health and will take over her medications for mental health Diverticular disease 09/11/2023 Epigastric hernia 09/11/2023 Osteoarthritis 09/11/2023 Assessment & Plan (10/11/2023 11:50 AM EDT): C/w PRN meds Patient will go to medical records for guidance for new DIRECTOR OF VENDOR MANAGEMENT services Pain in both hands 08/27/2023 Assessment & Plan (10/11/2023 11:51 AM EDT): As above Class 2 severe obesity due t o excess calories with serious comorbidity in adult 05/29/2023 Assessment & Plan (05/16/2024 10:23 AM EDT): Discussed re weight reduction options including exercise, life style modifications, diet and referral to surgical specialist. Recommended to decrease soda and sugary [...] Assessment & Plan (10/11/2023 11:52 AM EDT): DIRECTOR OF VENDOR MANAGEMENT services will be requested Assessment & Plan [...] Gastroesophageal reflux disease 06/17/2022 Assessment & Plan (06/13/2025 3:54 PM EST): - Referral to GI placed 06/09/25 - Continues with omeprazole BID Assessment & Plan (12/31/2023 2:42 PM EDT): I advise patient to avoid NSAIDs, spicy and acid food, I advise to eat at the same time every day, I advise to elevate the head of the bed and take medications as prescribe Hiatal hernia 06/17/2022 Assessment & Plan (06/13/2025 3:52 PM EST): - Referral to GI placed 06/09/25 Irritable bowel syndrome 06/17/2022 Migraine without aura, [...] A 07/02/2019 Fibromyalgia 05/02/2019 Assessment & Plan (06/13/2025 3:54 PM EST): - Pt attended and participated in group model of care - urine tox and pill count as expected - continue to explore and use non-pharmacological modalities for chronic pain treatment Assessment & Plan (04/07/2025 1:27 PM EDT): [...] pill count as expected Pt prefers individual REGISTERED RADIOLOGIC TECHNOLOGIST appointments, will schedule with Benita Mahmood RN [...] organization. Date Type Department Care Team Description 07/03/2025 Telephone [facility] [address] [place] [address] Virginie Monet MD Appointment Request 06/30/2025 9:00 AM EST Office Visit [facility] [address] [place] [address] Virginie Monet MD Gastroesophageal reflux disease, unspecified whether esophagitis present (Primary Dx); Type 2 diabetes mellitus without complication, without long-term current use of insulin (HCC); Hiatal hernia; Dyslipidemia; Essential hypertension; Pulmonary hypertension (CMS/HCC) (HCC); Asthma-chronic obstructive pulmonary disease overlap syndrome (CMS/HCC) ([facility]); Neck pain; Chronic pain of both shoulders; Skin infection; Benign essential tremor; Chronic fatigue 06/30/2025 Travel 06/29/2025 Telephone [facility] [address] [place] [phone] Virginie Monet MD Chart Prep 06/27/2025 Refill [facility] [address] [place] [phone] Virginie Monet MD Michael's thyroiditis 06/19/2025 Patient Outreach [address] [address] Virginie Monet MD Pre-visit Planning (SDOH screening completed on 03/17/2025) 06/16/[address] [address] Virginie Monet MD CHARTPREP 06/16/2025 Travel 06/16/[address] [phone] Virginie Monet MD Nurse Triage 06/15/2025 Refill [facility] [address] [place] [phone] Virginie Monet MD Chronic bilateral low back pain without sciatica 06/09/2025 9:45 AM EST Office Visit [facility] [address] [place] [phone] Racheal Flynn FNP Fibromyalgia (Primary Dx); Long-term current use of opiate analgesic; Gastroesophageal reflux disease, unspecified whether esophagitis present; Hiatal hernia 06/09/[address] [address] Benita Mahmood RN BPI Scoring 05/26/2025 Telephone [facility] [address] [place] [address] Virginie Monet MD Letter for School/Work 05/26/2025 Telephone [facility] [address] [place] [address] Virginie Monet MD 05/18/2025 Refill [facility] [address] [place] [address] Virginie Monet MD Chronic bilateral low back pain without sciatica 05/14/2025 Telephone [facility] [address] [place] [phone] Virginie Monet MD Appointment Request 05/11/[address] [address] Virginie Monet MD Reschedule chronic pain group appt 05/11/2025 Orders Only GENERIC EXTERNAL DATA DEPARTMENT Provider, Generic External Data 04/21/2025 Telephone [facility] [address] [place] [phone] Virginie Monet MD Call Back Request 04/20/[address] [phone] Virginie Monet MD Dec recall 04/17/2025 Refill [facility] [address] [place] [phone] Virginie Monet MD Chronic bilateral low back pain without sciatica 04/11/2025 Refill [facility] [address] [place], [place] [phone] Virginie Monet MD Prediabetes from Last 3 Months Immunizations Immunization Administration [...] Sign Reading Time Taken Comments Blood Pressure 140/87 06/30/2025 9:00 AM EST Pulse 108 06/30/2025 9:00 AM EST Temperature 36.7 C (98 F) 03/26/2025 9:03 AM EDT Respiratory Rate 17 06/30/2025 9:00 AM EST Oxygen Saturation 94% 06/30/2025 9:00 AM EST Inhaled Oxygen Concentration - - Weight 77.7 kg (171 lb 6.4 oz) 06/30/2025 9:00 A M EST Height 170.2 cm (5' 7 ) 06/30/2025 9:00 AM EST Body Mass Index 26.85 06/30/2025 9:00 AM EST Plan of Treatment Upcoming Encounters Date Type Department Care Team (Late st Contact Info) Description 08/11/2025 9:45 AM EST Office Visit [facility] [address] [place] [phone] Health Maintenance Due Date Last Done Comments CT Colonography 1965 FIT DNA/Cologuard 1965 FIT 1965 FOBT 1965 Sigmoidoscopy 1965 Disability Screening 1965 Diabetes: Foot Exam 10/07/1975 Eye Exam 10/07/1975 DTaP/Tdap/Td Vaccines (1 - Tdap) 1984 Hepatitis A Vaccines (1 of 2 - Risk 2-dose series) 1984 Hepatitis B Vaccines (1 of 3 - 19+ 3-dose series) 1984 RSV Patients and Patients Aged 60 years or older (1 - Risk 50-74 years 1-dose series) 10/07/2015 Zoster Vaccines (1 of 2) 10/07/2015 Pap [...] 09/23/2025 025, 12/18/2024, 09/16/2024, Additional history exists Mammogram 01/02/2026 01/02/2025, 12/14, 01/01/2023, Additional history exists SDOH Screening 03/17/2026 03/17/2025 Alcohol/Substance Use Screening 03/26/2026 03/26/2025 Tobacco Screening 06/30/2026 06/30/2025 Colonoscopy 01/31/2027 01/31/2017 Colorectal Cancer Screening 01/31/2027 Pneumococcal Vaccine: 50+ Years Completed 02/02/2023, 11/16/2016 [...] on patient's age to complete this topic Goals Goal Patient Goal Type Associated Problems Recent Progress Patient-Stated? Author Help patients manage their type 2 diabetes Care Plan Help patients manage their type 2 diabetes Benita Botello, KELSEY Weekly blood pressure task Care Plan Weekly blood pressure task Benita Botello, RN Help patients manage their type 2 diabetes Care Plan Help patients manage their type 2 diabetes Benita Botello, KELSEY Patient has chronic kidney disease Care Plan Patient has chronic kidney disease No Benita Mahmood RN Weekly blood pressure task Care Plan Weekly blood pressure task No Benita Mahmood, KELSEY Patient has chronic kidney disease Care Plan Patient has chronic kidney disease No Benita Mahmood RN Weekly blood pressure task Care Plan Weekly blood pressure task No Benita Mahmood RN Weekly blood pressure task Care Plan Weekly blood pressure task No Benita Mahmood, RN Patient has chronic kidney disease Care Plan Patient has chronic kidney disease No Benita Mahmood, RN Patient has chronic kidney disease Care Plan Patient has chronic kidney disease No Benita Mahmood RN Weekly blood pressure task Care Plan Weekly blood pressure task No Naun Starkey [facility] Weekly blood pressure task Care Plan Weekly blood pressure task No Naun Starkey [facility] Patient has chronic kidney disease Care Plan Patient has chronic kidney disease No Magallonranulfo Starkey [facility] Patient has chronic kidney disease Care Plan Patient has chronic kidney disease No Naun Starkey [facility] Weekly blood pressure task Care Plan Weekly blood pressure task No Hernan Johnson Weekly blood pressure task Care Plan Weekly blood pressure task No Hernan Johnson Patient has chronic kidney disease Care Plan Patient has chronic kidney disease No Hernan Johnson Patient has chronic kidney disease Care Plan Patient has chronic kidney disease No Hernan Johnson Weekly blood pressure task Care Plan Weekly blood pressure task No Jodie Monique Weekly blood pressure task Care Plan Weekly blood pressure task No Jodie Monique Patient has chronic kidney disease Care Plan Patient has chronic kidney disease No Jodie Monique Patient has chronic kidney disease Care Plan Patient has chronic kidney disease No Jodie Monique Weekly blood pressure task Care Plan Weekly blood pressure task No Tam Giron [place] Weekly blood pressure task Care Plan Weekly blood pressure task No Tam Giron [place] Patient has chronic kidney disease Care Plan Patient has chronic kidney disease No Tam Giron [place] Patient has chronic kidney disease Care Plan Patient has chronic kidney disease No Tam Giron [place] Weekly blood pressure task Care Plan Weekly blood pressure task No Gisella Saini NP Weekly blood pressure task Care Plan Weekly blood pressure task No Gisella Saini NP Patient has chronic kidney disease Care Plan Patient has chronic kidney disease No Gisella Saini NP Patient has chronic kidney disease Care Plan Patient has chronic kidney disease No Gisella Saini NP Weekly blood pressure task Care Plan Weekly blood pressure task No Zaynab Austin PharmD Weekly blood pressure task Care Plan Weekly blood pressure task No Zaynab Austin PharmD Patient has chronic kidney disease Care Plan Patient has chronic kidney disease No Zaynab Austin PharmD Patient has chronic kidney disease Care Plan Patient has chronic kidney disease No Zaynab Austin PharmD Weekly blood pressure task Care Plan Weekly blood pressure task No Herman, Kandice Weekly blood pressure task Care Plan Weekly blood pressure task No Herman, Kandice Patient has chronic kidney disease Care Plan Patient has chronic kidney disease No Herman, Kandice Patient has chronic kidney disease Care Plan Patient has chronic kidney disease No Herman, Kandice Weekly blood pressure task Care Plan Weekly blood pressure task No Alannah Ramos Weekly blood pressure task Care Plan Weekly blood pressure task No Alannah Ramos Patient has chronic kidney disease Care Plan Patient has chronic kidney disease No Alannah Ramos Patient has chronic kidney disease Care Plan Patient has chronic kidney disease No Alannah Ramos Weekly blood pressure task Care Plan Weekly blood pressure task No Benita Mahmood RN Weekly blood pressure task Care Plan Weekly blood pressure task No Benita Mahmood, KELSEY Patient has chronic kidney disease Care Plan Patient has chronic kidney disease No Benita Mahmood, KELSEY Patient has chronic kidney disease Care Plan Patient has chronic kidney disease No Benita Mahmood, KELSEY Weekly blood pressure task Care Plan Weekly blood pressure task No Ledy English MA Weekly blood pressure task Care Plan Weekly blood pressure task No Ledy English [place] Patient has chronic kidney disease Care Plan Patient has chronic kidney disease No Ledy English MA Patient has chronic kidney disease Care Plan Patient has chronic kidney disease No Ledy English MA Weekly blood pressure task Care Plan Weekly blood pressure task No Laura Grey MA Weekly blood pressure task Care Plan Weekly blood pressure task No Laura Grey MA Patient has chronic kidney disease Care Plan Patient has chronic kidney disease No Laura Grey MA Patient has chronic kidney disease Care Plan Patient has chronic kidney disease No Laura Grey MA Weekly blood pressure task Care Plan Weekly blood pressure task No Shakira Trevino Weekly blood pressure task Care Plan Weekly blood pressure task No UrielShakira Patient has chronic kidney disease Care Plan Patient has chronic kidney disease No Ashley Trevinomin Patient has chronic kidney disease Care Plan Patient has chronic kidney disease No Ashley Trevinomin Weekly blood pressure task Care Plan Weekly blood pressure task No Dony GordillozqueJodie eduardo Weekly blood pressure task Care Plan Weekly blood pressure task No Colon MaldonadoJodie Patient has chronic kidney disease Care Plan Patient has chronic kidney disease No Dony Maldonado Jodie Patient has chronic kidney disease Care Plan Patient has chronic kidney disease No Colon Joel Jodie Procedures Procedure Name Priority Date/Time Associated Diagnosis Comments POCT GLUCOSE (CPT-53790) Routine 06/30/2025 9:02 AM EST Type 2 diabetes mellitus without complication, without long-term current use of insulin ([facility]) POCT AIMEE-14 URINE DRUG SCREEN Routine 06/09/2025 10:21 AM EST Fibromyalgia Long-term current use of opiate analgesic NM HEART PERFUSION SPECT STRESS AND REST Routine 05/12/2025 8:39 AM EDT HIGH SENSITIVITY TROPONIN I Routine 05/11/2025 12:00 PM EDT CTA CHEST PE PROTOCAL Routine 05/11/2025 11:03 AM EDT VENOUS BLOOD GAS Routine 05/11/2025 9:40 AM [...] VIEW Routine 05/11/2025 9:30 AM EDT POCT GLYCATED HEMOGLOBIN, TOTAL Routine 03/26/2025 9:08 [...] Relevant to Health Maintenance Results * POCT Glucose (06/30/2025 9:02 AM EST) Glucose Blood, POC 147 60 - 200 mg/dL QC Media Lot # [id number] Lot# Expiration Date Blood Capillary blood specimen / Unknown 06/30/2025 9:02 AM EST us Virginie Lopez MD POINT OF CARE TEST EN TER/EDIT ORDERABLES Final Result * (ABNORMAL) POCT AIMEE-14 Urine Drug Screen (06/09/2025 10:21 AM EST) THC Negative Negative Cocaine Screen, Urine Negative Negative Opiate Screen, Urine Negative Negative Methamphetamine Screen Urine Negative Negative Amphetamine Screen, Urine Negative Negative Benzodiazepines Screen, Urine Negative Negative Barbiturate Screen, Urine Negative Negative Methadone Screen, Urine Negative Negative Buprenophine Screen, Urine Negative Negative TCA, Urine Negative Negative MDMA Urine Negative Negative ng/mL Oxycodone Screen, Urine Positive(A) Negative 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 POINT OF CARE TEST ENTER/EDIT ORDERABLES Final Result * NM heart perfusion SPECT stress and rest (05/12/2025 8:39 AM EDT) Anatomical Region Laterality Modality Body Nuclear Medicine 05/12/2025 8:39 AM EDT Narrative 05/12/2025 2:50 PM EDT [place] [address] Nuclear Medicine Report Signed Patient: Virginie Martins MR#: [id number] 07 : 1965 Acct:[id number] Age/Sex: 59 / F ADM Date: 05/11/25 Loc: [facility] 486-[address]: Chico Bledsoe MD Ordering Physician: Aníbal Sparks MD Date of Service: 05/12/25 Procedure(s): NM ese perf SPECT rest str Accession Number(s): [id number] cc: Virginie Monet MD; Aníbal Sparks MD Reason for Exam: chest pain Lexiscan Myocardial perfusion study Indication: Chest pain Technique: The patient was brought in for a Lexiscan perfusion study on 05/12/2025 and was injected 0.4 mg of Lexiscan intravenously. Within a minute of this injection 33 mCi of sestamibi was given intravenously. Images were obtained using the SPECT gamma camera interlaced with the gating device. Images were obtained in supine position. Resting perfusion study was performed on 05/12/2025. Patient was administered 11 mCi of sestamibi intravenously at rest. Images were then obtained in supine position. Total DLP 76 mGy-cm. Images were processed with the software and compared side to side in short axis, horizontal long axis and vertical long axis views. Findings: Raw aquisition reviewed. The stress perfusion study showed decreased tracer uptake the in the apex and adjacent part of anterior wall. There is no significant change with CT attenuation correction. The gated study shows normal LV systolic function with calculated LVEF of 68%. LV cavity is normal in size. The gated study shows normal wall thickening and contraction of segments. Resting study shows reduced tracer uptake at the apex, basal inferoseptal wall. No major changes with CT attenuation correction. Gating at rest reveals normal wall motion with ejection fraction at 57%. The findings are consistent with reversible apical defect, but with normal contractility. NM/NM ese perf SPECT rest str Impression: 1. Myocardial perfusion imaging study shows possible apical ischemia. 2. Gated LVEF is 68% during stress and 57% during rest. 3. Transient ischemic dilatation not present. EKG component of the test reported separately. Electronically signed by: Aníbal Sparks MD 05/12/2025 02:47 PM EDT RP Dictated By: Aníbal Sparks MD Signed By: <Electronically signed by Aníbal Sparks MD in OV> 05/12/25 1447 DD/ 0839 TD/TT: 05/12/25 1140 Accounts Specialist: Procedure Note Donotuseinterpreter, Image - 05/12/[address] [address] Nuclear Medicine Report Signed Patient: Virginie Martins AMR#: [id number] 07 : 1965Acct:[id number] Age/Sex: 59 / FADM Date: 05/11/25 Loc: [facility] 486-[address]: Chico Bledsoe MD Ordering Physician: Aníbal Sparks MD Date of Service: 05/12/25 Procedure(s): NM ese perf SPECT rest str Accession Number(s): [id number] cc: Virginie Monet MD; Aníbal Sparks MD Reason for Exam: chest pain Lexiscan Myocardial perfusion study Indication: Chest pain Technique: The patient was brought in for a Lexiscan perfusion study on 05/12/2025 and was injected 0.4 mg of Lexiscan intravenously. Within a minute of this injection 33 mCi of sestamibi was given intravenously. Images were obtained using the SPECT gamma camera interlaced with the gating device. Images were obtained in supine position. Resting perfusion study was performed on 05/12/2025. Patient was administered 11 mCi of sestamibi intravenously at rest. Images were then obtained in supine position. Total DLP 76 mGy-cm. Images were processed with the software and compared side to side in short axis, horizontal long axis and vertical long axis views. Findings: Raw aquisition reviewed. The stress perfusion study showed decreased tracer uptake the in the apex and adjacent part of anterior wall. There is no significant change with CT attenuation correction. The gated study shows normal LV systolic function with calculated LVEF of 68%. LV cavity is normal in size. The gated study shows normal wall thickening and contraction of segments. Resting study shows reduced tracer uptake at the apex, basal inferoseptal wall. No major changes with CT attenuation correction. Gating at rest reveals normal wall motion with ejection fraction at 57%. The findings are consistent with reversible apical defect, but with normal contractility. NM/NM ese perf SPECT rest str Impression: 1. Myocardial perfusion imaging study shows possible apical ischemia. 2. Gated LVEF is 68% during stress and 57% during rest. 3. Transient ischemic dilatation not present. EKG component of the test reported separately. Electronically signed by: Aníbal Sparks MD 05/12/2025 02:47 PM EDT RP Workstation: [id number] Dictated By: Aníbal Sparks MD Signed By: <Electronically signed by Aníbal Sparks MD inOV> 05/12/25 1447 DD/ 0839 TD/TT: 05/12/25 1140 Accounts Specialist: [facility] External Provider IMG NM PROCEDURES Final Result * High Sensitivity Troponin I (05/11/2025 12:00 PM EDT) Only the most recent of2 resultswithin the time period is included. TROPONIN I HIGH SENSITIVITY <2.7 <3.5 - 17.0 ng/L [facility] Comment:The [place] high sens itivity Troponin-I results should beused in conjunction with other diagnostic information suchas ECG, clinical observations and information, and patientsymptoms to aid in the diagnosis of AR. 05/11/2025 12:0 0 PM EDT 05/11/2025 12:04 PM EDT Generic External Data Provider LAB BLOOD ORDERAB LES Final Result [facility] [address] [place] [phone] * CTA Chest PE Protocal (05/11/2025 11:03 AM EDT) Anatomical Region Laterality Modality Body, Chest Computed Tomogra phy 05/11/2025 11:0 3 AM EDT Narrative 05/11/2025 11:36 AM EDT [address] [address] [address] Scan Report Signed Patient: Virginie Martins MR#: [id number] 07 : 1965 Acct:[id number] Age/Sex: 59 / F ADM Date: 05/11/25 Loc: HO.ED Attending Dr: Ordering Physician: Elaina Hull DO Date of Service: 05/11/25 Procedure(s): CT angio chest PE protocol Accession Number(s): [id number] cc: Virginie Monet MD; Elaina Hull DO Report Number: [id number]: Total DLP = 0.00 mGy-cm Reason for Exam: L sided chest pain with radiation to the back, EXAMINATION: CT CHEST ANGIOGRAPHY WITH IV CONTRAST INDICATION: L sided chest pain with radiation to the back, COMPARISON: Comparison is made with the prior examination dated 11/14/2024. TECHNIQUE: Helical CT scan of the chest was performed following administration of intravenous contrast (65 mL Omnipaque 350). The contrast bolus was timed to optimally opacify the pulmonary arteries. Thin sections were obtained through the pulmonary arteries. Coronal and sagittal reformatted images were generated. 3D/MIP reconstructed images are also obtained and reviewed. This CT exam was performed with one or more of the following dose reduction techniques: automated exposure control, adjustment of the mA and/or kV according to patient size, use of iterative reconstruction technique. DLP: 828. mGy-cm CHEST: THYROID: The thyroid gland is unremarkable. PULMONARY ARTERIES: The examination is limited by patient motion. No definite intraluminal filling defects are identified within the pulmonary arteries to suggest pulmonary emboli. LUNGS: Again seen are scattered 3-4 mm nodules in the right upper lobe (series 6, images 19 and 25), in the right middle lobe (series 6, images 57, 61, 66, and 67), and in the left upper lobe (series 6, image 42). There are no focal airspace opacities. MEDIASTINUM: There are enlarged AP window lymph nodes measuring up to 1.4 cm in size. Subcarinal lymph nodes measure up to 1.8 cm. GIOVANA: There are bilateral hilar lymph nodes measuring up to 10 mm. CARDIOVASCULATURE: The heart is enlarged. There is no pericardial effusion. The thoracic aorta is normal in caliber. DEGREE OF CORONARY CALCIFICATION: not evaluable, due to dense contrast in the coronary arteries. PLEURA: There is no pleural effusion. No pneumothorax. MAIN AIRWAYS: The mainstem bronchi and proximal branches are patent. AXILLA: There is no axillary lymphadenopathy. UPPER ABDOMEN: The visualized portions of the liver, spleen, and adrenals are unremarkable. BONES AND SOFT TISSUES: Unremarkable. CT/CT angio chest PE protocol IMPRESSION: 1. Limited examination due to patient motion. No definite evidence of pulmonary emboli. 2. Scattered subcentimeter bilateral pulmonary nodules without significant change. 3. Borderline mediastinal and hilar lymph nodes as described. Continued follow-up is recommended. Electronically signed by: Rodney Prajapati MD 05/11/2025 11:34 AM EDT Dictated By: Rodney Prajapati MD Signed By: <Electronically signed by Rodney Prajapati MD in OV> 05/11/25 1134 DD/ 1103 TD/TT: 05/11/25 1122 Accounts Specialist: Procedure Note Donotuseinterpreter, Image - 05/11/[address] [place] [address] [address] Scan Report Signed Patient: Virginie Martins AMR#: [id number] 07 : 1965Acct:[id number] Age/Sex: 59 / FADM Date: 05/11/25 Loc: HO.ED Attending Dr: Ordering Physician: Elaina Hull DO Date of Service: 05/11/25 Procedure(s): CT angio chest PE protocol Accession Number(s): [id number] cc: Virginie Monet MD; Elaina Hull DO Report Number: [id number]: Total DLP = 0.00 mGy-cm Reason for Exam: L sided chest pain with radiation to the back, EXAMINATION: CT CHEST ANGIOGRAPHY WITH IV CONTRAST INDICATION: L sided chest pain with radiation to the back, COMPARISON: Comparison is made with the prior examination dated 11/14/2024. TECHNIQUE: Helical CT scan of the chest was performed following administration of intravenous contrast (65 mL Omnipaque 350). The contrast bolus was timed to optimally opacify the pulmonary arteries. Thin sections were obtained through the pulmonary arteries. Coronal and sagittal reformatted images were generated. 3D/MIP reconstructed images are also obtained and reviewed. This CT exam was performed with one or more of the following dose reduction techniques: automated exposure control, adjustment of the mA and/or kV according to patient size, use of iterative reconstruction technique. DLP: 828. mGy-cm CHEST: THYROID: The thyroid gland is unremarkable. PULMONARY ARTERIES: The examination is limited by patient motion. No definite intraluminal filling defects are identified within the pulmonary arteries to suggest pulmonary emboli. LUNGS: Again seen are scattered 3-4 mm nodules in the right upper lobe (series 6, images 19 and 25), in the right middle lobe (series 6, images 57, 61, 66, and 67), and in the left upper lobe (series 6, image 42). There are no focal airspace opacities. MEDIASTINUM: There are enlarged AP window lymph nodes measuring up to 1.4 cm in size. Subcarinal lymph nodes measure up to 1.8 cm. GIOVANA: There are bilateral hilar lymph nodes measuring up to 10 mm. CARDIOVASCULATURE: The heart is enlarged. There is no pericardial effusion. The thoracic aorta is normal in caliber. DEGREE OF CORONARY CALCIFICATION: not evaluable, due to dense contrast in the coronary arteries. PLEURA: There is no pleural effusion. No pneumothorax. MAIN AIRWAYS: The mainstem bronchi and proximal branches are patent. AXILLA: There is no axillary lymphadenopathy. UPPER ABDOMEN: The visualized portions of the liver, spleen, and adrenals are unremarkable. BONES AND SOFT TISSUES: Unremarkable. CT/CT angio chest PE protocol IMPRESSION: 1. Limited examination due to patient motion. No definite evidence of pulmonary emboli. 2. Scattered subcentimeter bilateral pulmonary nodules without significant change. 3. Borderline mediastinal and hilar lymph nodes as described. Continued follow-up is recommended. Electronically signed by: Rodney Prajapati MD 05/11/2025 11:34 AM EDT RP Dictated By: Rodney Prajapati MD Signed By: <Electronically signed by Rodney Prajapati MD in OV> 05/11/25 1134 DD/ 1103 TD/TT: 05/11/25 1122 Accounts Specialist: [facility] External Provider IMG CT PROCEDURES Edited Result - Final * (ABNORMAL) VENOUS BLOOD GAS (05/11/2025 9:40 AM EDT) [facility] VBG pH 7.38 7.32 - 7.43 [facility] Comment:METER #: [id number] additional_comment: Cb bailea VBG PCO2 51 mmHg [facility] Comment:METER #: [id number] additional_comment: Cb bailea VBG PO2 42 mmHg [facility] Comment:METER #: [id number] additional_comment: Cb bailea VBG Base Excess 4.6 mmol/L [facility] Comment:METER #: [id number] additional_comment: Cb bailea VBG HCO3 30(H) 22 - 26 mmol/L [facility] Comment:METER #: [id number] additional_comment: Cb bailea O2 Sat, Kamaljit 70.0 % [facility] Comment:METER #: [id number] additional_comment: Cb bailea 05/11/2025 9:40 AM EDT 05/11/2025 9:43 AM EDT Generic External Data Provider LAB BLOOD ORDERAB LES Final Result [facility] [address] [place] [phone] * COVID-19 ID NOW (BRITO) (05/11/2025 9:39 AM EDT) Pathologist [facility] IDNOW SERIAL# [id number] [facility] COVID-19 TEST Negative Negative [facility] COVID-19 NOTE See Note [facility] Comment: Results are for the identification of SARS-CoV2 RNA. TheSARS-CoV2 RNA is generally detectable in respiratory samplesduring the acute phase of infection. Positive results areindicative of the presence of SARS-CoV-2 RNA; clinicalcorrelation with patient history and other diagnosticinformation is necessary to determine patient infectionstatus. Positive results do not rule out bacterial infectionor co- infection with other viruses.Testing facilities within the [facility] and [facility] are required to report all positive results [...] use by authorized laboratories.Testing performed on the [facility] NOW utilizing NAAT. 05/11/2025 9:39 AM EDT 05/11/2025 9:43 AM EDT us Generic External Data Provider LAB MOLECULAR EVELIN GNOSTICS ORDERABLES Final Result [facility] [address] [place] [phone] * D Dimer High Sensitivity (05/11/2025 9:36 AM EDT) Pathologist [facility] D Dimer High Sensitivity 365 NG/ML [facility] Comment:D-DIMER HS REFERENCE RANGENote: Our [...] ORDERAB LES Final Result Performing Organization Address [facility] de Phone Number [facility] [address] [place] [phone] * NT-proBNP (05/11/2025 9:36 AM EDT) Pathologist [facility] NT-proBNP 138.1 <300 pg/mL [facility] Comment:Reference Range:Age Group (years) NT-proBNP (pg/ml) InterpretationAll <300 Negative: HF unlikelyFor patients presenting to the ED with clinical suspicion ofnew onset or worsening HF, see below:18 to <50 >299.9 to <450.0 Grayzone: [id number] to 75 >299.9 to <900.0 other causes of>75 >299.9 to <1800.0 NT-proBNP [id number] to <50 >449.9 Positive: HF -86 >899.9>75 >1799.9Note: Elevated NT-proBNP levels should be interpreted inthe context of other clinical information. 05/11/2025 9:36 AM EDT 05/11/2025 9:41 AM EDT Generic External Data Provider LAB BLOOD ORDERAB LES Final Result Performing Organization Address [facility] de Phone Number [facility] [address] [place] [phone] * (ABNORMAL) CBC auto differential (05/11/2025 9:36 AM EDT) Pathologist [facility] White Blood Count 6.5 4.8 - 10.8 X10*3/uL [facility] Red Blood Count 4.97 4.20 - 5.50 X10*6/uL [facility] Hemoglobin 13.1 12.0 - 16.0 g/dl [facility] Hematocrit 39.8 37.0 - 47.0 % [facility] Mean Corpuscular Volume 80.1 80.0 - 98.0 fL [facility] Mean Corpuscular Hemoglobin 26.4(L) 27.0 - 33.0 pg [facility] Mean Corpuscular HGB Conc 32.9 31.0 - 35.0 g/dl [facility] Red Cell Distribution Width 14.2 11.0 - 16.0 % [facility] Platelet Count 315 160 - 400 X10*3/uL [facility] Mean Platelet Volume 9.2(L) 9.4 - 12.3 fL [facility] Neutrophils Percent Auto 58.0 45 - 73 % [facility] Imm Gran Pct Auto 0.3 0.0 - 0.4 % [facility] Lymphocytes Percent Auto 31.5 20 - 40 % [facility] Monocytes Percent Auto 7.7 2 - 11 % [facility] Eosinophils Percent Auto 2.2 0 - 4 % [facility] Basophils Percent Auto 0.3 0 - 2 % [facility] NRBC Pct Auto 0.0 0.0 - 0.2 /100WBC [facility] Neutrophils Absolute Auto 3.8 2.0 - 8.3 x10*3/uL [facility] Imm Gran Abs Auto 0.02 0.00 - 0.03 X10*3/uL [facility] Lymphocytes Absolute Auto 2.0 1.2 - 4.9 X10*3/uL [facility] Monocytes Absolute Auto 0.5 0.1 - 1.2 X10*3/uL [facility] Eosinophils Absolute Auto 0.1 0.0 - 0.4 X10*3/uL [facility] Basophils Absolute Auto 0.0 0.0 - 0.2 X10*3/uL [facility] NRBC Abs Auto 0.000 0.0 - 0.012 X10*3/uL [facility] 05/11/2025 9:36 AM EDT 05/11/2025 9:41 AM EDT us Generic External Data Provider LAB BLOOD ORDERAB LES Final Result Performing Organization Address [facility] Co de Phone Number [facility] [address] [place] [address] [phone] * (ABNORMAL) C-reactive Protein (05/11/2025 9:36 AM EDT) C Reactive Protein 1.97(H) < or = 0.50 mg/dL [facility] 05/11/2025 9:36 AM EDT 05/11/2025 9:41 AM EDT us Generic External Data Provider LAB BLOOD ORDERAB LES Final Result Performing Organization Address [facility] de Phone Number [facility] [address] [place] [address] [phone] * Magnesium (05/11/2025 9:36 AM EDT) Magnesium 1.8 1.6 - 2.6 mg/dL [facility] 05/11/2025 9:36 AM EDT 05/11/2025 9:41 AM EDT us Generic External Data Provider LAB BLOOD ORDERAB LES Final Result Performing Organization Address [facility] Co de Phone Number [facility] [address] [place] [address] [phone] * (ABNORMAL) Creatine Kinase, Total (05/11/2025 9:36 AM EDT) Creatine Kinase Total 25(L) 26 - 140 U/L [facility] 05/11/2025 9:36 AM EDT 05/11/2025 9:41 AM EDT us Generic External Data Provider LAB BLOOD ORDERAB LES Final Result Performing Organization Address [facility] Co de Phone Number [facility] [address] [place] [address] [phone] * Hepatic Function Panel (05/11/2025 9:36 AM EDT) Pathologist [facility] Bilirubin, Total 0.4 0.0 - 1.0 mg/dL [facility] Bilirubin, Direct 0.2 0.0 - 0.5 mg/dL [facility] Aspartate Amino Transferase 21 5 - 31 U/L [facility] Alanine Aminotransferase 25 0 - 31 U/L [facility] Total Protein 7.4 6.5 - 8.0 g/dL [facility] Albumin Level 4.1 3.5 - 5.0 g/dL [facility] Alkaline Phosphatase 102 39 - 117 U/L [facility] 05/11/2025 9:36 AM EDT 05/11/2025 9:41 AM EDT us Generic External Data Provider LAB BLOOD ORDERAB LES Final Result [facility] [address] [place] [address] [phone] * (ABNORMAL) Basic Metabolic Panel (05/11/2025 9:36 AM EDT) [facility] Sodium 141 135 - 145 mmol/L [facility] Potassium 3.8 3.3 - 5.1 mmol/L [facility] Chloride 108 96 - 108 mmol/L [facility] Carbon Dioxide 25 22 - 29 mmol/L [facility] Anion Gap 12 12 - 20 [facility] Urea Nitrogen (BUN) 12 9 - 16 mg/dL [facility] Creatinine, Serum 0.62 0.5 - 1.4 mg/dL [facility] Creatinine Clr Calc Pharmacy 105.1 [facility] Comment:Provided height and weight: 170.18 cm,77.9 kg.eGFR (calculated from the MDRD study equation) and eCrCl(calculated from the Cockcroft-Gault equation) are based ondifferent parameters and may not yield comparable results.If eCrCl result is absurd, please check patient'sheight/weight. Estimated Glomerular Filt Rate >60 [facility] Comment:Chronic Kidney Disea se: Estimated GFR < 60 mL/min/1.56w0Iqktdc Kidney Disease: Estimated GFR < 15 mL/min/1.73m2 Glucose 147(H) 60 - 115 mg/dL [facility] Calcium 10.0 8.4 - 10.2 mg/dL [facility] 05/11/2025 9:36 AM EDT 05/11/2025 9:41 AM EDT us Generic External Data Provider LAB BLOOD ORDERAB LES Final Result Performing Organization Address City/State/[facility] Co de Phone Number [facility] [address] [place] [phone] * XR Chest 1 View (05/11/2025 9:30 AM EDT) Anatomical Region Laterality Modality Chest Radiographic Zora ging 05/11/2025 9:30 AM EDT Narrative 05/11/2025 9:47 AM EDT [address] [address] XRay Report Signed Patient: Virginie Martins MR#: [id number] [birth year] : 1965 Acct:[id number] Age/Sex: 59 / F ADM Date: 05/11/25 Loc: .ED Attending Dr: Ordering Physician: Elaina Hull DO Date of Service: 05/11/25 Procedure(s): XR chest 1V Accession Number(s): [id number] cc: Virginie Monet MD; Elaina Hull DO [...] in OV> 05/11/25943 DD/ 9 TD/TT: 05/11/25933 Accounts Specialist: ANTONIO Procedure Note Donotuseinterpreter, Image - 05/11/2025 [place] [address] XRay Report Signed Patient: Virginie Martins#: [id number] 07 : 1965Acct:[id number] Age/Sex: 59 / FADM Date: 05/11/25 Loc: .ED Attending Dr: Ordering Physician: Elaina Hull DO Date of Service: 05/11/25 Procedure(s): XR chest 1V Accession Number(s): [id number] cc: Virginie Monet MD; Elaina Hull DO [...] MD in OV> 05/11/25943 DD/ 9 TD/TT: 10/27/25 0934 Accounts Specialist: HB [facility] External Provider IMG XR PROCEDURES Edited Result - Final * (ABNORMAL) POCT Hgb A1c (03/26/2025 9:08 [...] AM EDT Narrative 01/07/2025 3:10 PM EDT [address] [place] [address] Mammography Report Signed Patient: Virginie Martins MR#: [id number] [birth year] : 1965 Acct:[id number] Age/Sex: 59 / F ADM Date: 01/02/25 Loc: HO.MAMMO Attending Dr: Virginie Lopez MD Ordering Physician: Virginie Monet MD Results: 1Negative Date of Service: 01/02/25 Follow Up: 1 Year From Orig inal Mammogram Procedure(s): MM tomosynthesis screening BI Accession Number(s): [id number] cc: Virginie Monet MD EXAMINATION: MM SCREENING [...] 01/07/25 1507 DD/ 0735 TD/TT: 01/02/25 0756 Accounts Specialist: Procedure Note Donotuseinterpreter, Image - 01/07/2025 [facility] [address] [place] [address] Mammography Report Signed Patient: Virginie Martins AMR#: [id number] 07 : 1965Acct:[id number] Age/Sex: 59 / FADM Date: 01/02/25 Loc: HO.MAMMO Attending Dr: Virginie Lopez MD Ordering Physician: Virginie Monet MDResults: 1Negative Date of Service: 01/02/25Follow Up: 1 Year From Orig community [facility] Mammogram Procedure(s): MM tomosynthesis screening BI Accession Number(s): [id number] cc: Virginie Monet MD EXAMINATION: MM SCREENING [...] Yu DO 01/07/2025 03:07 PM EDT RP Workstation: [employer] Dictated By: Nyla Yu DO Signed By: <Electronically signed by Nyla Yu DO in OV> 01/07/25 1507 DD/ 0735 TD/TT: 01/02/25 0756 Accounts Specialist: us Virginie Lopez MD IMG BI PROCEDURES Fin al Result * Lipid Panel with Reflex to Direct LDL (04/22/2024 9:30 AM EDT) Triglycerides 149 <150 mg/dL [facility] Comment:Desirable Triglyceri de: less than 150 mg/dLBorderline High Triglyceride 150-199 mg/dLHigh Triglyceride: 200-499 mg/dLVery High Triglyceride: greater than or equal to 5OO mg/dL Cholesterol 154 <200 mg/dL [facility] Comment:Desirable Cholestero l: less than 200 mg/dLBorderline High Cholesterol: 200-239 mg/dLHigh Cholesterol: greater than 239 mg/dL LDL Cholesterol Calculated 79 <100 mg/dL [facility] Comment:Desirable LDL: less than 100 mg/dLNear Optimal/Above Optimal LDL: 110- 129 mg/dLBorderline High LDL: 130-159 mg/dLHigh LDL: 160-189 mg/dLVery High LDL: greater than or equal to 190 mg/dL HDL Cholesterol 46 >40 mg/dL [facility] Comment:Desirable HDL: great er than 40 mg/dL Note: This HDL assay may give artificially low results in patients with liver disease. Blood 04/22/2024 9:30 AM EDT 04/22/2024 11:35 AM EDT us Virginie Lopez MD LAB BLOOD ORDERABLES Final Result [facility] [address] [place] [phone] * Hepatitis C Viral RNA, Quantitative, Real-Time PCR (04/22/2024 9:30 AM EDT) Pathologist [facility] Hepatitis C Viral Load <15 NOT DETECTED NOT DETECTED IU/mL [facility] HCV Log PCR <1.18 NOT DETECTED NOT DETECTED Log IU/mL [facility] Comment:For additional infor екатерина, please refer tohttp://education.[employer])/faq/YAJ79v5(This link is being provided for informational/educational purposes only.)THIS TEST WAS PERFORMED AT:[employer] [place] [phone] PERRY MD Blood 04/22/2024 9:30 AM EDT 04/22/2024 11:35 AM EDT us Virginie Lopez MD LAB BLOOD ORDERABLES Final Result Performing Organization Address City/[facility]/ZIP Co de Phone Number [facility] [address] [place] [phone] * Albumin, Random Urine W/Creatinine (04/22/2024 9:30 AM EDT) Pathologist [facility] Creatinine, Urine 193.55 mg/dL [facility] Microalbumin Urine 16.0 mg/L [facility] Microalbum Creatinine Ratio Ur 8.2 <30 ug/mg cr [facility] Comment:Albumin/Creatinine R atio Reference Ranges: Normal: < 30 ug/mg creatinine Microalbuminuria: 30 - 300 ug/mg creatinineClinical Albuminuria: > 300 ug/mg creatinine Urine (Urine, Random) 04/22/2024 9:30 AM EDT 04/22/2024 11:23 AM EDT us Virginie Lopez MD LAB URINE ORDERABLES Final Result Performing Organization Address City/[facility]/ZIP Co de Phone Number [facility] [address] [place] [phone] * HIV-1/2 Antigen and Antibodies, Fourth Generation, with Reflexes (04/22/2024 9:30 AM EDT) Pathologist [facility] HIV AB/AG Nonreactive Nonreactive [facility] Comment:HIV-1 p24 Ag and/or HIV-1/HIV-2 Ab not detected.A test result that is nonreactive does not exclude thepossibility of exposure to or infection with HIV-1 and/orHIV-2. Nonreactive results in this assay for individualswith prior exposure to HIV-1 and/or HIV-2 may be due toantigen and antibody levels that are below the limit ofdetection of this assay.The [employer] HIV Ag/Ab Combo assay result andsupplemental assay results should be interpreted inconjunction with the patient's clinical presentation,history and other laboratory results. If the results areinconsistent with clinical evidence, additional testing issuggested to confirm the result. Blood Venous blood specimen / Unknown 04/22/2024 9:30 AM EDT 04/22/2024 11:35 AM EDT Virginie Lopez MD LAB BLOOD ORDERABLES Final Result [facility] [address] [place] [phone] * HPV mRNA E6/E7 (02/27/2018 3:34 PM EDT) Pathologist [facility] HPV mRNA E6/E7 Not Detected NOT DETECTED [facility] Comment: This test was performed using the APTIMA(R) HPV Assay ([employer] This assay detects E6/E7 viral messenger RNA (mRNA) from 14 high-risk HPV types (16,18,31,33,35,39,45,51, 52,56,58,59,66,68). For additional information please refer to: http://education.[employer]/faq/WGL135n1 (This link is being provided for informational/ educational purposes only.) The analytical performance characteristics of this assay have been determined by [employer] [facility] [place], [place]. The modifications have not been cleared or approved by the FDA. This assay has been validated pursuant to the CLIA regulations and is used for clinical purposes. Test Performed by [employer], [employer] [facility] [place], [id number] [place], [place] Adriel Barclay M.D., Ph.D., Director of Laboratories , CLIA [id number] Please note: Effective 03/27/2016, HPV testing will be performed using [employer]'s APTIMA test which targets mRNA. Detecting mRNA instead of DNA, as in older methods, offers significant improvements in specificity. 02/27/2018 3:34 PM EDT Ela Kern CNM HISTORICAL/NON ORDERABLE LABS Final Result Performing Organization Address [facility]/ZIP Co de Phone Number [facility] [address] [place] [address] * Pap Smear (02/27/2018 12:00 AM EDT) Swab Ela WILLS LAB CYTOLOGY ORDERABLES F inal Result Performing Organization Address City/[facility] Co de Phone Number [facility] [address] [place] [phone] * Hm Colonoscopy (01/31/2017) Colonoscopy Normal Normal Narrative Ashley Recio - 01/31/2017 Repeat colonoscopy in 10 years . Results are in [facility] 01/31/2017 Historical Provider MD HEALTH MAINTENANCE Final Result from Last 3 Months or Most Recently Relevant to Health Maintenance Additional Health Concerns Active Problems Noted Date Diagnosed Date Help patients manage their type 2 diabetes 06/02 Weekly blood pressure task 06/02/2025 Help patients manage their type 2 diabetes 06/02 Patient has chronic kidney disease 06/02/2025 Weekly blood pressure task 06/02/2025 Patient has chronic kidney disease 06/02/2025 Weekly blood pressure task 06/09/2025 Weekly blood pressure task 06/09/2025 Patient has chronic kidney disease 06/09/2025 Patient has chronic kidney disease 06/09/2025 Weekly blood pressure task 06/10/2025 Weekly blood pressure task 06/10/2025 Patient has chronic kidney disease 06/10/2025 Patient has chronic kidney disease 06/10/2025 Weekly blood pressure task 06/15/2025 Weekly blood pressure task 06/15/2025 Patient has chronic kidney disease 06/15/2025 Patient has chronic kidney disease 06/15/2025 Weekly blood pressure task 06/16/2025 Weekly blood pressure task 06/16/2025 Patient has chronic kidney disease 06/16/2025 Patient has chronic kidney disease 06/16/2025 Weekly blood pressure task 06/16/2025 Weekly blood pressure task 06/16/2025 Patient has chronic kidney disease 06/16/2025 Patient has chronic kidney disease 06/16/2025 Weekly blood pressure task 06/16/2025 Weekly blood pressure task 06/16/2025 Patient has chronic kidney disease 06/16/2025 Patient has chronic kidney disease 06/16/2025 Weekly blood pressure task 06/16/2025 Weekly blood pressure task 06/16/2025 Patient has chronic kidney disease 06/16/2025 Patient has chronic kidney disease 06/16/2025 Weekly blood pressure task 06/18/2025 Weekly blood pressure task 06/18/2025 Patient has chronic kidney disease 06/18/2025 Patient has chronic kidney disease 06/18/2025 Weekly blood pressure task 06/19/2025 Weekly blood pressure task 06/19/2025 Patient has chronic kidney disease 06/19/2025 Patient has chronic kidney disease 06/19/2025 Weekly blood pressure task 06/24/2025 Weekly blood pressure task 06/24/2025 Patient has chronic kidney disease 06/24/2025 Patient has chronic kidney disease 06/24/2025 Weekly blood pressure task 06/29/2025 Weekly blood pressure task 06/29/2025 Patient has chronic kidney disease 06/29/2025 Patient has chronic kidney disease 06/29/2025 Weekly blood pressure task 06/30/2025 Weekly blood pressure task 06/30/2025 Patient has chronic kidney disease 06/30/2025 Patient has chronic kidney disease 06/30/2025 Weekly blood pressure task 06/30/2025 Weekly blood pressure task 06/30/2025 Patient has chronic kidney disease 06/30/2025 Patient has chronic kidney disease 06/30/2025 Weekly blood pressure task 07/03/2025 Weekly blood pressure task 07/03/2025 Patient has chronic kidney disease 07/03/2025 Patient has chronic kidney disease 07/03/2025 Insurance [facility] 65 * Guarantor: Virginie Martins Account Type Relation to Patient Date of Phone Billing Address Personal/Family Self [address] Care Teams Clinical Data Analyst Relationship Specialty Start Date End Date Virginie Monet MD [address] [place] [phone] PCP - General Family Medicine 07/30/20
--- OUTSIDE RECORDS SUMMARY | 2025-07-09 01:42 | XMS_ITS | Encounter Summary ---
Author Organization [employer] Address [address] [facility] [address] [place] [address] Care Team Providers Care Plastic Tool Maker Name Role Phone Virginie Monet MD Primary Care Provide r Reason for Visit * Reason Onset Date Comments Appointment Request 06/25/2023 Encounter Details Date Type Department Care Team ([facility] Contact Info) Description 06/25/2023 Telephone [facility] [address], [place] [phone] Virginie Monet MD [address] [place] [address] Appointment Request Social History Tobacco Use Types [...] call back to r/s appt on 06/25 sports writer did 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 appt per patient request documented in this encounter Plan of Treatment Upcoming Encounters Date Type Department Care Team (Late st Contact Info) Description 08/11/2025 9:45 AM EST Office Visit [facility] [address] [place] [phone] documented as of this encounter Visit Diagnoses Not on filedocumented in this encounter Additional Health Concerns Assessment Noted Time PHQ-9 Depression Total Score: 0 05/29/20 23 2:13 PM EST documented as of this encounter Care Teams Plastic Tool Maker Relationship Specialty Start Date End Date Virginie Monet MD [address] [place] [phone] PCP - General Family Medicine 07/30/20 documented as of this encounter
--- OUTSIDE RECORDS SUMMARY | 2025-07-09 01:42 | XMS_ITS | Data Portability ---
Author Organization [employer] [facility] Address [address] [place] [address] Care Team Providers Care Drafter Patent Name Role Phone HIM CCA OTHER NIKOLE SOUSASHANKAR BETTENCOURT Primary Care Provider Assessment Encounter Date Assessment Date Assessment LastModified by Organization Details LastModified Time 02/13/2025 02/13/2025 As noted, we were called to see this patient regarding concerns of nausea. Evaluation in the field was performed by my motor runner colleague, as noted above, I provided real-time direction and supervision for this visit. Patient has been having nausea ever since her ozempic was increased from 1 mg to 2 mg. She denies any fevers, vomiting, abdominal pain. She spoke to her PCP who is going to decrease the ozempic dose back to 1 mg starting on Sunday. Patient states she has taken ODT Zofran with good effect in the past. Patient states that she did have a bowel movement recently. She has no questions or concerns. Patient received one ODT Zofran by medic. Prescription for ODT Zofran was provided. Patient was advised to call us back with any questions or concerns. Impression: Nausea Plan: Follow-up PCP Primary care, consider Labs Disposition: We discussed the diagnostic uncertainty of home visits and the risk associated with this. In this case, the patient and I felt this to be an acceptable and reasonable amount of risk given the benefit of avoiding an ED visit. We discussed the need to seek care urgently/emerge ntly in the setting of any new or worsening serious symptoms, particularly Fever, vomiting, abdominal pain. [email or web address] Not available 02/13/2025 11:13:36 Plan of Treatment Reminders Order Date Submit Date Provider Last Modified By Organization Details Last Modified Time Details Appointments None recorded. Lab None recorded. Referral None recorded. Procedures None recorded. Surgeries None recorded. Imaging None recorded. Medication Orders ondansetron 4 mg disintegrat ing tablet 2024 025 [facility] #[id number], [address] [place], [phone], 5 05:01:14 ondansetron 4 mg disintegrat ing tablet 2024 025 [facility] #[id number], [address] [place], [phone], 5 05:01:14 Patient TargetsNo targets recorded. Patient InstructionsNo instructions recorded. Reason for Referral None Reported. Medical Equipment None Reported. Allergies Allergen ID Allergen Name Allergen Category Reaction Reaction Severity Criticality Documentation Date Start Date Code Code System Note Provider Name and Address Organization Details Recorded Time 70432 Vaccine product containin g only Clostridi um tetani antigen (medicina l product) medicatio n Not available Not available Not available 02/13/2025 69974 2003 SNOMED Not Available [facility] - production 08:57:44 68655 banana extract food,medi cation Not available Not available Not available 02/13/2025 17348 9 RxNorm Not Available [employer] 08:57:44 48956 adhesive tape environme nt,medica tion Not available Not available Not available 02/13/2025 Not Available [facility] - production 08:57:44 Medications Name Sig Start Date Stop Date Status Note LastModified by Organization Details LastModified Time atorvastati n 40 mg tablet TAKE 1 TABLET BY MOUTH DAILY active Not Available Not Available No t Available metformin 500 mg tablet TAKE 1 TABLET BY MOUTH TWICE DAILY WITH THE MORNING AND EVENING MEAL active Not Available Not Available No t Available primidone 50 mg tablet TAKE 1 TABLET BY MOUTH TWICE DAILY active Not Available Not Available No t Available albuterol sulfate 2.5 mg/3 mL (0.083 %) solution for nebulizatio n INHALE 3 MLS FOUR TIMES DAILY NEEDED FOR SHORTNESS OF BREATH OR WHEEZING active Not Available Not Available No t Available ibuprofen 800 mg tablet active Not Available Not Available Not Available amitriptyli ne 75 mg tablet active Not Available Not Available Not Available prednisone 20 mg tablet active Not Available Not Available Not Available isosorbide mononitrate ER 30 mg tablet,exte nded release 24 hr TAKE 1 TABLET BY MOUTH DAILY active Not Available Not Available No t Available ropinirole 3 mg tablet TAKE 1 TABLET BY MOUTH DAILY active Not Available Not Available No t Available acetaminoph en 500 mg tablet TAKE ONE TABLET BY MOUTH EVERY 6 HOURS NEEDED FOR FEVER active Not Available Not Available No t Available alprazolam 0.5 mg tablet TAKE 1 TABLET BY MOUTH EVERY MORNING AND EVERY AFTERNOON AND EVERY NIGHT AT BEDTIME FOR UP TO 15 DAYS NEEDED active Not Available Not Available No t Available amitriptyli ne 25 mg tablet TAKE 1 TABLET BY MOUTH EVERY NIGHT active Not Available Not Available No t Available [employer] Ultra Test strips USE DIRECTED TWICE DAILY active Not Available Not Available No t Available glipizide ER 2.5 mg tablet, extended release 24 hr active Not Available Not Available Not Available levothyroxi ne 125 mcg tablet active Not Available Not Available Not Available nicotine 21 mg/24 hr daily transdermal patch APPLY 1 PATCH TOPICALLY TO THE SKIN 1 TIME EACH DAY AT THE SAME TIME active Not Available Not Available No t Available omeprazole 20 mg capsule,del ayed release TAKE 1 CAPSULE BY MOUTH IN THE MORNING AND AT BEDTIME active Not Available Not Available No t Available montelukast 10 mg tablet TAKE 1 TABLET BY MOUTH AT BEDTIME active Not Available Not Available No t Available hydroxyzine HCl 25 mg tablet TAKE 1 TABLET BY MOUTH THREE TIMES DAILY NEEDED active Not Available Not Available No t Available zolpidem 5 mg tablet TAKE 1 TABLET BY MOUTH AT BEDTIME FOR 1 WEEK THEN TAKE 2 TABLETS BY MOUTH AT BEDTIME active Not Available Not Available No t Available furosemide 20 mg tablet TAKE 1 TABLET BY MOUTH DAILY FOR 7 DAYS active Not Available Not Available No t Available polyethylen e glycol 3350 17 gram/dose oral powder MIX 17 GRAMS INTO 8-12OZ OF LIQUID AND DRINK EVERY NIGHT AT BEDTIME NEEDED FOR CONSTIPAT ION active Not Available Not Available No t Available zolpidem 10 mg tablet TAKE 1 TABLET BY MOUTH EVERY NIGHT active Not Available Not Available No t Available albuterol sulfate HFA 90 mcg/actuati on aerosol inhaler INHALE 2 PUFFS BY MOUTH EVERY 6 HOURS NEEDED FOR WHEEZING active Not Available Not Available No t Available sumatriptan 20 mg/actuatio n nasal spray USE 1 SPRAY IN EACH NOSTRIL EVERY DAY NEEDED active Not Available Not Available No t Available losartan 50 mg-hydrochl orothiazide 12.5 mg tablet TAKE 1 TABLET BY MOUTH DAILY active Not Available Not Available No t Available ondansetron 4 mg disintegrat ing tablet Place 1 tablet 3 times a day by transling ual route as needed for 3 days, for nausea. 02/23 completed Not Available Not Available Not Available naproxen 500 mg tablet TAKE 1 TABLET BY MOUTH TWICE DAILY FOR 10 DAYS NEEDED FOR PAIN active Not Available Not Available No t Available amoxicillin 875 mg-potassiu m clavulanate 125 mg tablet TAKE 1 TABLET BY MOUTH TWICE DAILY active Not Available Not Available No t Available oxycodone 5 mg tablet active Not Available Not Available No t Available aripiprazol e 5 mg tablet TAKE 1 TABLET BY MOUTH DAILY active Not Available Not Available No t Available duloxetine 60 mg capsule,del ayed release active Not Available Not Available Not Available BD Ultra-Fine Mini Pen Needle 31 gauge x 3/16 USE TO INJECT INSULIN ONCE DAILY active Not Available Not Available No t Available Flovent HFA 220 mcg/actuati on aerosol inhaler INHALE 1 PUFF BY MOUTH TWICE DAILY active Not Available Not Available No t Available aripiprazol e 2 mg tablet TAKE 1 TABLET BY MOUTH DAILY active Not Available Not Available No t Available hydrochloro thiazide 12.5 mg tablet TAKE 1 TABLET BY MOUTH DAILY active Not Available Not Available No t Available diclofenac 1 % topical gel APPLY 1 INCH TOPICALLY TO AFFECTED AREA EVERY MORNING AND EVERY NIGHT AT BEDTIME active Not Available Not Available No t Available blood pressure test kit-large cuff USE TO CHECK BLOOD PRESSURE ONCE DAILY active Not Available Not Available No t Available Anoro Ellipta 62.5 mcg-25 mcg/actuati on powder for inhalation INHALE 1 PUFF BY MOUTH DAILY active Not Available Not Available No t Available Trulicity 1.5 mg/0.5 mL subcutaneou s pen injector INJECT ONE PEN (=1.5MG) SUBCUTANE OUSLY ONCE A WEEK DIRECTED active Not Available Not Available No t Available Trulicity 0.75 mg/0.5 mL subcutaneou s pen injector ADMINISTE R 0.75 MG UNDER THE SKIN 1 TIME EVERY WEEK active Not Available Not Available No t Available OneTouch Delica Plus Lancet 30 gauge USE DIRECTED TWICE DAILY active Not Available Not Available No t Available Sodium Fluoride 5000 Plus 1.1 % dental cream BRUSH TEETH EVERY MORNING AND AT BEDTIME DIRECTED active Not Available Not Available No t Available Caplyta 42 mg capsule TAKE 1 CAPSULE BY MOUTH EVERY NIGHT active Not Available Not Available No t Available Trulicity 3 mg/0.5 mL subcutaneou s pen injector ADMINISTE R 3 MG UNDER THE SKIN 1 TIME EVERY WEEK active Not Available Not Available No t Available Trelegy Ellipta 200 mcg-62.5 mcg-25 mcg powder for inhalation INHALE 1 PUFF BY MOUTH DAILY active Not Available Not Available No t Available Ozempic 1 mg/dose (4 mg/3 mL) subcutaneou s pen injector INJECT 1 MG UNDER THE SKIN ONCE EVERY WEEK active Not Available Not Available No t Available Ozempic 2 mg/dose (8 mg/3 mL) subcutaneou s pen injector INJECT 2 MG UNDER THE SKIN ONE DAY A WEEK active Not Available Not Available No t Available FreeStyle Shane 3 Sensor device USE DIRECTED TO TEST BLOOD SUGAR. CHANGE EVERY 14 DAYS active Not Available Not Available No t Available Node1 COVID-19 Rapid At-Home Test kit TEST DIRECTED TODAY active Not Available Not Available No t Available Ozempic 0.25 mg or 0.5 mg (2 mg/3 mL) subcutaneou s pen injector INJECT 0.5 MG UNDER THE SKIN EVERY WEEK active Not Available Not Available No t Available FreeStyle Shane 3 [place] USE DIRECTED active Not Available Not Available No t Available Vitals Date Recorded Respiratory rate Oxygen saturation Body weight Heart rate Body temperature Body height Heart rate Systolic And Diastolic Systolic And Diastolic Provider Name and Address Organization Details Last Updated DateTime 5 18 /min 97 % 06631.5 44 g 86 /min 98 [degF] 170.18 cm 76 /min 168/82 mm[Hg] 157/81 mm[Hg] Not Available [employer] [facility] [employer] 5 11:04:58 Date Recorded Respiratory rate Heart rate Body temperature Oxygen saturation Systolic And Diastolic Provider Name and Address Organization Details Last Updated DateTime 4 16 /min 88 /min 99.2 [degF] 98 % 200/110 mm[Hg] Not Available [employer] 4 20:21:08 Social History None recorded. Functional Status None recorded. Mental Status None recorded. Family History Nothing Reported. Medical History No medical history recorded. Gynecological HistoryNo gynecological history recorded. Obstetrics History GPAL:G 0 P 0 0 0 0 Past Encounters Encounter ID Performer Location Encounter Start Date Encounter Closed Date Diagnosis/Indication Diagnosis SNOMED-CT Code Diagnosis ICD10 Code Diagnosis IMO Codes Diagnosis Note [id number] Bryce Rivera MD Main - [address] [address] 03/04/2024 20:21:06 03/04/2024 22:03:09 Headache 11832313 R51.9 Reports a history of migraines, but this headache is different. Noted to be significan tly hypertensi ve. Stroke screen negative. Given change in semiology of headache associated with significan t hypertensi on, will refer to the ED for CT imaging, considerat ion of hypertensi ve emergency, etc. [id number] Connor Serna MD [facility] [address] [address] 02/13/2025 11:04:54 02/13/2025 16:08:25 Nausea [id number] R11.0 59399 Health Concerns Section Related Observation LastModified by Organization Detai ls LastModified Time None Recorded Concern Status LastModified by Organization Details LastModified Time None Recorded Advance Directives Directive None Recorded Payers Insurance Date Sequence Insurance Name Policy Number Policy Wills Covered Member ID Wills Member ID Guarantor Name 02/17/2025 1 [facility] - DOS ON OR AFTER 2022 - DUAL ELIGIBLE - CORRECTION OPTIONS AND ONE CARE (MEDICARE REPLACEMENT/ADV ANTAGE - HMO) Shankar Martins [id number] Shankar Martins Notes Date Note Type Note Provider Name and Address Organization Details Recorded Time 03/04/2024 text/html [facility] Nurse Triage Notes (Racheal Pabon): Reason For Request: Pt reporting severe headache for 3 weeks>suffers from migraines and has taken medication with no improvements>162/90 BP Chief Complaints: Headache PMH: Hypertension, Other Allergies: No Known Pain Assessment: Level 10 out of 10 Comments: [employer]ist verified the member's name//address and phone number. [...] s/s and seek emergency treatment if needed. ...................... ...................... ...................... ...................... ...................... ...................... ......... Trial Mgr Note From Ho Joe: Dispatched to the [...] in all extremities -dcapbtls -stroke scale findings. [facility] contacted and noted the patient should be evaluated at the emergency room due to symptoms and the headache being different than her normal migraines. Pt. agreed to transport and agreed to go by ambulance. 911 contacted [facility] on scene and [facility] took patient care. all times are approx.report completed by sarah joe ...................... ...................... ...................... ...................... ...................... ...................... ......... Disposition: Fulfilled Bryce Rivera MD [address] [facility],[address], [place], [address], [email or web address] 03/04/2024 21:30:34 02/13/2025 text/html ROS as noted in the HPI HPI: Patient with persistent nausea no vomiting. On Ozempic. ...................... ...................... ...................... ...................... ...................... ...................... ......... [facility] Nurse Triage Notes (Adelita Blunt): Reason For Request: nausea Chief Complaints: Nausea / Vomiting PMH: Hypertension, Anxiety Disorder, Asthma, Depression, Diabetes Mellitus Type 2, Gastroesophageal Reflux Disease (GERD) PMH Reviewed at 02/13/2025 08:57 Allergies Reviewed at 02/13/2025 - 08:57 Comments: PMH reviewed ...................... ...................... ...................... ...................... ...................... ...................... ......... Trial Mgr Note From Nisreen Baer: Sent to a call for a pt [...] this coming Sunday. Pt states she has been eating little, but has been staying hydrated. Pt is requesting medication to help with nausea. Pt states she has had Zofran ODT in the past with good effect. (sitting) BP:157/81, P:76, RR:18, SpO2:97% RA, T:98.0; (standing) BP:168/82, P:86; Head: unremarkable; Lung sounds: clear bilaterally; Abdomen: soft, non-tender, no distention; Back: unremarkable; Extremities: unremarkable; Skin: pink, warm, dry; [facility] consulted and orders Zofran ODT 4mg. [facility] sends script to pt's pharmacy. 5 med rights verified; Zofran ODT 4mg administered. Pt advised to follow up with [facility] if needed. Red flags discussed. Pt has no further questions. [facility] Medication Orders: ondansetron 4 mg disintegrating tablet: Administered ...................... ...................... ...................... ...................... ...................... ...................... ......... [facility] Consulted: Connor Serna ...................... ...................... ...................... ...................... ...................... ...................... ......... Disposition: Fulfilled Connor Serna MD [address] [place] [address],[address] [facility], [place], [address], JOE - KAVYA TSE 02/13/2025 15:07:01 OBGyn Episode No OBEpisode recorded.
[2025-07-09 02:03] LABS: Free T4 (Free Thyroxine) > 5.00 ng/dL (0.71-1.85)
[2025-07-09 02:14] LABS: Appearance Urine Clear; Glucose Urine UA Negative (Negative); PH 6.0 (5.0-9.0); Specific Gravity - Urine 1.010 (1.005-1.025)
[2025-07-09] MEDS: Lactated Ringers 1,000 ML 125 ML IVCONT ×3 (02:36→21:05)
--- NOTE | 2025-07-09 02:40 | PC.NURSE ---
Mildred ho being held per ED provider.
[2025-07-09] MEDS: Magnesium Sulfate/H2O 2 GM/50 ML PIGGYBACK IV (03:47)
[2025-07-09 03:52] LABS: Venous Blood Gas Refer to POC result
[2025-07-09 03:53] LABS: VBG HCO3 21 mmol/L (22-26); VBG O2 % Saturation 91.0 %
[2025-07-09] MEDS: levalbuterol HCL 3.75 MG, Ipratropium Bromide 0.5 MG INHALE (03:55)
--- NOTE | 2025-07-09 05:14 | PM.IMHP ---
History of Present Illness Date of Service: 07/09/25 Attending physician on admission: Marielos Forrest Chief Complaint: Shortness of breath Virginie Martins is a 59 years old woman with past medical history significant for BOY on CPAP, pulmonary hypertension, COPD not on oxygen, autoimmune thyroid disease/hypothyroidism on levothyroxine, essential hypertension, CAD and type 2 diabetes mellitus on metformin and insulin presents to the ED complaining of worsening of breath over the last 2 days associated with flu-like symptoms, including chest tightness, wheezing, fever, chills and nausea. HPI was somewhat limited to obtain as the patient was significantly short of breath for In the ED she was found to have marked tachypnea, tachycardia 106 - 107 bpm and fever of 103.4. She is currently on aerosol mask and satting at 98%. Blood workup showed no leukocytosis. Viral testing for influenza is positive. There are no electrolyte imbalances except for minimal hyperchloremia. Renal function and LFTs are normal. Pro BNP is 2057.5. TSH < 0.1 and free T4 is > 5.0. Troponin is 5.3. CXR showed mild bibasilar atelectasis/pneumonitis. ECG showed atrial fibrillation with PVCs and marked ST abnormalities, depressions. ED Tx: LR 2 L bolus, acetaminophen 1 g IV, Zofran 4 mg IV, doxycycline 100 mg IV, diltiazem 50 mg IV, Eliquis 10 mg p.o., morphine 2 mg IV, Solu-Medrol 60 mg IV Xopenex 3.75/ipratropium 0.5 mg inhaled Review of Systems Review of Systems: All 12 systems were reviewed and normal except as noted in HPI. [facility] Medical History Migraine without aura BOY on CPAP RLS (restless legs syndrome) Coronary artery disease Nicotine dependence, cigarettes, uncomplicated Pulmonary hypertension Dyspnea Vitamin D deficiency Mixed irritable bowel syndrome Michael's thyroiditis Fibromyalgia Type 2 diabetes mellitus Obesity (BMI 30-39.9) Hypothyroidism BOY (obstructive sleep apnea) Hypertension Pulmonary nodules Asthma-COPD overlap syndrome Family History Father Myocardial infarction Hypertension Diabetes CVD (cardiovascular disease) Mother Restless leg syndrome Diabetes Paternal Aunt Breast cancer Uterine cancer Surgical History History of colon resection History of cholecystectomy History of colonoscopy History of esophagogastroduodenoscopy (EGD) History of lithotripsy History of surgery on right wrist History of excision of mass (09/28/21) History of elbow surgery Status post tendon repair Status post trigger finger release H/O hand surgery H/O excision of ganglion cyst H/O arthroscopy of right knee Social History Housing: Apartment Are you a primary nursing care attendant to a significant other at home: No Do you presently have visiting nurse or other home services: Yes ([facility] once a year) Alcohol intake: former Patient Tobacco Use Status: Never used Tobacco Tobacco use type: Cigarette Cigarettes Per Day: 6 Years Smoked: (onset 18yo, 1/2-1ppd x 41yrs, now 1/4ppd - 30pyh) Smoked in Last 30 Days: Yes e-Cigarette/Vaping Use: Never Used Second Hand Smoke Exposure: No Advance Directives: No Advance Directives Information Provided: Yes service: No Meds Allergies Allergy/AdvReac Type Severity Reaction Status Date / Time adhesive tape Allergy Severe BLISTERS Verified 07/09/25 00:30 Tetanus Vaccines and Toxoid Allergy Intermediate SWELLING, Verified 07/09/25 00:30 (TETANUS VACCINES & TOXOID) REDNESS surgical tape Allergy Severe hives/boils Uncoded 04/09/25 09:08 Active Medications: Current Medications Acetaminophen (Acetaminophen 325 Mg Tablet) 975 mg PO Q6H PRN PRN Reason: Pain, Mild 1-3,fever,headache Calcium Carbonate (Calcium Carbonate 750 Mg Tab.Chew) 750 mg PO Q4H PRN PRN Reason: Heartburn Enoxaparin Sodium (Enoxaparin Sodium 40 Mg/0.4 Ml Syringe) 40 mg SUBCUT Q24H HOME Diltiazem HCl 125 mg/ Sodium (Chloride) 125 mls @ 0 mls/hr IVCONT .Q0M HOME; Protocol Lactated Ringer's (Lr) 1,000 mls @ 125 mls/hr IVCONT .Q8H HOME Last Admin: 07/09/25 02:36 Dose: 125 mls/hr Magnesium Hydroxide (Milk Of Magnesia 30 Ml Oral.Susp) 30 ml PO DAILY PRN PRN Reason: Constipation Melatonin (Melatonin 3 Mg Tablet) 6 mg PO BEDTIME PRN PRN Reason: Insomnia Oseltamivir Phosphate (Oseltamivir Phosphate 75 Mg Capsule) 75 mg PO BID HOME Stop: 07/13/25 21:01 Sodium Chloride (0.9 % Sodium Chloride Flush 3 Ml Syringe) 3 ml IVFLUSH QSHIFT [facility] Home Medications ?Medication ?Instructions ?Recorded ?Confirmed ?Last Taken ?Type duloxetine 60 mg capsule,delayed 60 mg PO DAILY 08/18/21 06/01/25 05/11/25 History release amitriptyline 75 mg tablet 75 mg PO BEDTIME 11/28/21 06/01/25 05/10/25 History omeprazole 20 mg capsule,delayed 20 mg PO BID 11/28/21 06/01/25 05/11/25 History release aripiprazole 2 mg tablet 2 mg PO DAILY 02/16/22 06/01/25 05/11/25 History nebulizers 10/27/22 06/01/25 09/21/24 History nebulizers 10/12/23 06/01/25 09/21/24 History fluticasone fur. 200 mcg-umeclid 1 ea inhalation DAILY 05/11/25 06/01/25 05/11/25 History 62.5 mcg-vilant 25 mcg inhalat.powder (Trelegy Ellipta) hydroxyzine HCl 25 mg tablet 25 mg PO TID PRN Anxiety 05/11/25 06/01/25 Unknown History insulin lispro 100 unit/mL See Protocol subcut TID PRN when 05/11/25 06/01/25 Unknown History subcutaneous pen sugar is above 150 levothyroxine 125 mcg tablet 125 mcg PO DAILY@0600 05/11/25 06/01/25 05/11/25 History losartan 50 mg-hydrochlorothiazide 1 tab PO DAILY 05/11/25 06/01/25 05/11/25 History 12.5 mg tablet metformin 500 mg tablet 500 mg PO BIDWM 05/11/25 06/01/25 05/11/25 History semaglutide 1 mg/dose (4 mg/3 mL) 1 mg subcut [place] 05/11/25 06/01/25 05/09/25 History subcutaneous pen injector (Ozempic) Physical Exam Vital Signs and Narrative: Vital Signs: Last Vital Signs Temp 99.1 F 07/09/25 04:09 Pulse 109 H 07/09/25 04:09 Resp 17 07/09/25 04:09 BP 111/59 L 07/09/25 04:09 Pulse Ox 98 07/09/25 04:09 O2 Del Method Aerosol Mask 07/09/25 04:09 O2 Flow Rate 2 07/09/25 02:38 BMI result Body Mass Index 27.6 General: Alert, oriented, in acute distress. Cooperative. Febrile. OxyMask in place. HEENT: Head normocephalic, atraumatic. PER, EOMI. Sclerae anicteric, conjunctiva clear. Oropharynx without erythema or exudate. Mucous membranes moist. Neck: Supple. Heart: Tachycardic, irregular rhythm. No. Lungs: Tachypnea. Marked end expiratory wheezes. No crackles. Abdomen: Soft, non tenderness, nondistended, normoactive bowel sounds. No hepatosplenomegaly, masses or masses. Extremities: No calf tenderness bilaterally, no swelling Musculoskeletal: Full range of motion. No joint swelling, deformity, or tenderness. Normal muscle tone and strength. Skin: Warm/Dry. No pallor. No jaundice. Neurologic: Alert & oriented x4. Moving all extremities spontaneously. Normal speech. Psychological: Normal mood and affect. Thought process coherent. Results Labs 07/09/25 00:35 07/09/25 00:35 Labs: Laboratory Results - last 24 hr 07/09/25 07/09/25 07/09/25 00:33 00:34 00:35 MCV 80.8 MCH 26.8 L MCHC 33.2 RDW 14.6 Plt Count 261 MPV 9.9 Immature Gran % (Auto) 0.4 Neut % (Auto) 83.5 H Lymph % (Auto) 9.0 L [place] % (Auto) 6.9 Eos % (Auto) 0.0 Baso % (Auto) 0.2 Lymph # (Auto) 0.5 L [place] # (Auto) 0.4 Eos # (Auto) 0.0 Baso # (Auto) 0.0 Abs Immat Gran (auto) 0.02 Absolute Neuts (auto) 4.7 Absolute Nucleated RBC 0.000 Nucleated RBC % (auto) 0.0 VBG pH VBG pCO2 VBG pO2 VBG HCO3 VBG O2 Saturation VBG Base Excess Anion Gap 13 Estim Creat Clear Calc 109.8 Estimated GFR > 60 Random Glucose 156 H Lactic Acid 1.8 Calcium 9.6 Total Bilirubin 0.4 AST 18 ALT 21 Alkaline Phosphatase 91 Troponin I High Sens 5.3 D NT-Pro-B Natriuret Pep 2057.5 H Total Protein 7.2 Albumin 4.0 TSH < 0.01 L Free T4 > 5.00 H Urine Color Urine Appearance Urine pH Ur Specific [place] Urine Protein Urine Glucose (UA) Urine Ketones Urine Blood Urine Nitrite Ur Leukocyte Esterase Urine RBC Urine WBC Ur Squamous Epith Cells Urine Bacteria Hyaline Casts Influenza Type A (PCR) POSITIVE A Influenza Type B (PCR) NEGATIVE RSV RNA Qual (PCR) NEGATIVE SARS-CoV-2 RNA (RT-PCR) NEGATIVE 07/09/25 07/09/25 02:08 03:49 MCV MCH MCHC RDW Plt Count MPV Immature Gran % (Auto) Neut % (Auto) Lymph % (Auto) [place] % (Auto) Eos % (Auto) Baso % (Auto) Lymph # (Auto) [place] # (Auto) Eos # (Auto) Baso # (Auto) Abs Immat Gran (auto) Absolute Neuts (auto) Absolute Nucleated RBC Nucleated RBC % (auto) VBG pH 7.34 VBG pCO2 38 VBG pO2 70 VBG HCO3 21 L VBG O2 Saturation 91.0 VBG Base Excess -4.2 Anion Gap Estim Creat Clear Calc Estimated GFR Random Glucose Lactic Acid Calcium Total Bilirubin AST ALT Alkaline Phosphatase Troponin I High Sens NT-Pro-B Natriuret Pep Total Protein Albumin TSH Free T4 Urine Color Yellow Urine Appearance Clear Urine pH 6.0 Ur Specific [place] 1.010 Urine Protein Trace Urine Glucose (UA) Negative Urine Ketones 15 Urine Blood Negative Urine Nitrite Negative Ur Leukocyte Esterase Negative Urine RBC 0-2 Urine WBC 0-5 Ur Squamous Epith Cells 3-5 Urine Bacteria Trace Hyaline Casts 0-2 Influenza Type A (PCR) Influenza Type B (PCR) RSV RNA Qual (PCR) SARS-CoV-2 RNA (RT-PCR) Assessment and Plan (1) Acute exacerbation of chronic obstructive pulmonary disease (COPD): Status: Acute (2) Atrial fibrillation, new onset: Status: Acute (3) Influenza A: Status: Acute Plan Virginie Martins is a 59 y/o woman with a PMHx significant for COPD and pulmonary hypertension who presents with: Acute exacerbation of COPD secondary to pneumonitis due to influenza A infection. Telemetry. Pulse oximetry. Supplemental O2 to keep O2 sats > 90%. Continue bronchodilator therapy, IV steroids and empiric IV antibiotic therapy with doxycycline. Tamiflu 75 mg p.o. for 5 days. Continue montelukast. Hyperthyroidism, likely secondary to thyroiditis due to acute viral/influenza infection. Supportive therapy. Hold levothyroxine for now. Patient has a history of hypothyroidism due to autoimmune thyroid disease. All antibodies are positive. TSI is negative (per endocrinology notes) = No Graves disease/no thyroid storm. Thyroid US (06/2020) - essentially normal. Check total T3 (this has been low in the past). Atrial fibrillation with rapid ventricular response, new onset. Secondary to above. Improving after IV fluids and fever control. Telemetry. Start metoprolol titrate 50 mg p.o. b.i.d. and Eliquis 5 mg p.o. b.i.d. Check TTE. BOY. Nocturnal CPAP. Type 2 diabetes mellitus. BG checks before meals at bedtime. Insulin sliding scale. Diabetic diet. Essential hypertension. Continue amlodipine, metoprolol and losartan. CAD. Stress test showed LAD territory perfusion defect. Cardiac catheterization did not show any significant disease. Continue aspirin, statin, isosorbide. GERD. Continue omeprazole. Bipolar disorder. Continue home meds. Tobacco dependence. Tobacco cessation education. Restless leg syndrome. Continue aripiprazole. Hx migraine headaches. Continue topiramate. Code status: Full DVT prophylaxis: Eliquis med rec pending Patient will need hospitalization for at least 2 midnights for acute exacerbation of COPD due to influenza infection treatment with supplemental oxygen, IV steroids, IV antibiotics and bronchodilator therapy. The patient will also need close cardiac monitoring. Quality Stroke Does the patient have a stroke diagnosis?: No VTE Prior VTE?: No VTE Risk Level:: Medical - moderate - high VTE Device Contraindication: Treatment Not Indicated VTE Drug Contraindication: N/A - Med Ordered
[2025-07-09 06:09] LABS: Anion Gap 14 (12-20); Blood Urea Nitrogen 8 mg/dL (9-16); Calcium 9.0 mg/dL (8.4-10.2); Carbon Dioxide 19 mmol/L (22-29); Chloride 113 mmol/L (96-108); Creatinine Clr Calc Pharmacy 117.6; Estimated Glomerular Filt Rate > 60; Magnesium 2.3 mg/dL (1.6-2.6); Potassium 3.6 mmol/L (3.3-5.1); Sodium 142 mmol/L (135-145)
[2025-07-09] MEDS: Albuterol/Iprat 2.5/0.5MG 3 ML AMPUL.NEB INHALE ×2 (07:57→11:17)
[2025-07-09 08:01] LABS: Hematocrit 35.6 % (37.0-47.0); Hemoglobin 11.7 g/dl (12.0-16.0); Imm Gran Abs Auto 0.00 X10*3/uL (0.00-0.03); Imm Gran Pct Auto 0.0 % (0.0-0.4); Lymphocytes Absolute Auto 0.4 X10*3/uL (1.2-4.9); Mean Corpuscular HGB Conc 32.9 g/dl (31.0-35.0); Mean Corpuscular Hemoglobin 27.1 pg (27.0-33.0); Mean Corpuscular Volume 82.4 fL (80.0-98.0); NRBC Abs Auto 0.000 X10*3/uL (0.0-0.012); NRBC Pct Auto 0.0 /100WBC (0.0-0.2); Platelet Count 203 X10*3/uL (160-400); Red Blood Count 4.32 X10*6/uL (4.20-5.50); White Blood Count 3.1 X10*3/uL (4.8-10.8)
[2025-07-09 08:05] LABS: Glucose, Whole Blood 157 mg/dL (60-115)
--- NOTE | 2025-07-09 08:12 | HO.PM.IMPN ---
Subjective Subjective Date of Service: 07/09/25 Interval History: Patient states this is the worst flu she has ever had Review of Systems Review of Systems: Yes all other systems are reviewed and are negative Physical Exam Exam: Exam: General: AO X 3, resp distress with accessory muscle usage Resp: CTA bilateral, no accessory muscles used CVS: S1,S2,RRR GI: soft, non tender, non distended Neuro: motor grossly intact, alert Psych: appropriate affect, appropriate insight Vital Signs: Vital Signs: Last Vital Signs Temp 98.4 F 07/09/25 06:23 Pulse 92 07/09/25 08:00 Resp 18 07/09/25 08:00 BP 118/58 L 07/09/25 06:23 Pulse Ox 98 07/09/25 06:23 O2 Del Method Nasal Cannula 07/09/25 06:23 O2 Flow Rate 2 07/09/25 06:23 BMI result Body Mass Index 27.6 Objective Data Active Medications Acetaminophen (Acetaminophen 325 Mg Tablet) 975 mg PO Q6H PRN PRN Reason: Pain, Mild 1-3,fever,headache Albuterol Sulfate (Albuterol Sulfate (0.083%) 2.5 Mg/3 Ml Vial.Neb) 2.5 mg INHALE Q2H PRN PRN Reason: Shortness of Breath/Wheezing Albuterol/Ipratropium (Albuterol/Iprat 2.5/0.5mg 3 Ml Ampul.Neb) 3 ml INHALE RQ4H WHILE AWAKE [facility] Last Admin: 07/09/25 07:57 Dose: 3 ml Documented By: YANIV Apixaban (Apixaban 5 Mg Tablet) 5 mg PO BID [facility] Calcium Carbonate (Calcium Carbonate 750 Mg Tab.Chew) 750 mg PO Q4H PRN PRN Reason: Heartburn Dextrose (Dextrose 50 % 25 Gm/50 Ml Syringe) 25 gm IVPUSH Q15M PRN; Protocol PRN Reason: per Hypoglycemia Standing Ord. Doxycycline Monohydrate (Doxycycline Monohydrate 100 Mg Capsule) 100 mg PO Q12H HOME Glucose (Glucose Gel 15 Gm Gel..Gram.) 15 gm PO Q15M PRN; Protocol PRN Reason: per Hypoglycemia Standing Ord. Diltiazem HCl 125 mg/ Sodium (Chloride) 125 mls @ 0 mls/hr IVCONT .Q0M [facility]; Protocol Lactated Ringer's (Lr) 1,000 mls @ 125 mls/hr IVCONT .Q8H [facility] Last Admin: 07/09/25 02:36 Dose: 125 mls/hr Documented By: TRACY Insulin Human Lispro (Insulin Lispro 100 Unit/Ml 3 Ml Vial) 0 unit SUBCUT QIDACHS [facility]; Protocol Magnesium Hydroxide (Milk Of Magnesia 30 Ml Oral.Susp) 30 ml PO DAILY PRN PRN Reason: Constipation Melatonin (Melatonin 3 Mg Tablet) 6 mg PO BEDTIME PRN PRN Reason: Insomnia Methylprednisolone Sodium Succinate (Methylprednisolone Sod Succ 40 Mg/Ml Vial) 40 mg IVPUSH Q12H [facility] Metoprolol Tartrate (Metoprolol Tartrate 50 Mg Tablet) 50 mg PO BID [facility]; Protocol Last Admin: 07/09/25 06:25 Dose: 50 mg Documented By: TRACY Oseltamivir Phosphate (Oseltamivir Phosphate 75 Mg Capsule) 75 mg PO BID [facility] Stop: 07/13/25 21:01 Sodium Chloride (0.9 % Sodium Chloride Flush 3 Ml Syringe) 3 ml IVFLUSH QSHIFT [facility] Labs 07/09/25 07:54 07/09/25 05:39 Labs: Laboratory Results - last 24 hr 07/09/25 07/09/25 07/09/25 00:33 00:34 00:35 MCV 80.8 MCH 26.8 L MCHC 33.2 RDW 14.6 Plt Count 261 MPV 9.9 Immature Gran % (Auto) 0.4 Neut % (Auto) 83.5 H Lymph % (Auto) 9.0 L [place] % (Auto) 6.9 Eos % (Auto) 0.0 Baso % (Auto) 0.2 Lymph # (Auto) 0.5 L [place] # (Auto) 0.4 Eos # (Auto) 0.0 Baso # (Auto) 0.0 Abs Immat Gran (auto) 0.02 Absolute Neuts (auto) 4.7 Absolute Nucleated RBC 0.000 Nucleated RBC % (auto) 0.0 VBG pH VBG pCO2 VBG pO2 VBG HCO3 VBG O2 Saturation VBG Base Excess Anion Gap 13 Estim Creat Clear Calc 109.8 Estimated GFR > 60 POC Glucose Random Glucose 156 H Lactic Acid 1.8 Calcium 9.6 Magnesium Total Bilirubin 0.4 AST 18 ALT 21 Alkaline Phosphatase 91 Troponin I High Sens 5.3 D NT-Pro-B Natriuret Pep 2057.5 H Total Protein 7.2 Albumin 4.0 TSH < 0.01 L Free T4 > 5.00 H Urine Color Urine Appearance Urine pH Ur Specific [place] Urine Protein Urine Glucose (UA) Urine Ketones Urine Blood Urine Nitrite Ur Leukocyte Esterase Urine RBC Urine WBC Ur Squamous Epith Cells Urine Bacteria Hyaline Casts Influenza Type A (PCR) POSITIVE A Influenza Type B (PCR) NEGATIVE RSV RNA Qual (PCR) NEGATIVE SARS-CoV-2 RNA (RT-PCR) NEGATIVE 07/09/25 07/09/25 07/09/25 02:08 03:49 05:39 MCV MCH MCHC RDW Plt Count MPV Immature Gran % (Auto) Neut % (Auto) Lymph % (Auto) [place] % (Auto) Eos % (Auto) Baso % (Auto) Lymph # (Auto) [place] # (Auto) Eos # (Auto) Baso # (Auto) Abs Immat Gran (auto) Absolute Neuts (auto) Absolute Nucleated RBC Nucleated RBC % (auto) VBG pH 7.34 VBG pCO2 38 VBG pO2 70 VBG HCO3 21 L VBG O2 Saturation 91.0 VBG Base Excess -4.2 Anion Gap 14 Estim Creat Clear Calc 117.6 Estimated GFR > 60 POC Glucose Random Glucose 162 H Lactic Acid Calcium 9.0 D Magnesium 2.3 Total Bilirubin AST ALT Alkaline Phosphatase Troponin I High Sens NT-Pro-B Natriuret Pep Total Protein Albumin TSH Free T4 Urine Color Yellow Urine Appearance Clear Urine pH 6.0 Ur Specific [place] 1.010 Urine Protein Trace Urine Glucose (UA) Negative Urine Ketones 15 Urine Blood Negative Urine Nitrite Negative Ur Leukocyte Esterase Negative Urine RBC 0-2 Urine WBC 0-5 Ur Squamous Epith Cells 3-5 Urine Bacteria Trace Hyaline Casts 0-2 Influenza Type A (PCR) Influenza Type B (PCR) RSV RNA Qual (PCR) SARS-CoV-2 RNA (RT-PCR) 07/09/25 07/09/25 07:54 08:01 MCV 82.4 MCH 27.1 MCHC 32.9 RDW 14.6 Plt Count 203 MPV 9.6 Immature Gran % (Auto) 0.0 Neut % (Auto) 86.3 H Lymph % (Auto) 11.8 L [place] % (Auto) 1.9 L Eos % (Auto) 0.0 Baso % (Auto) 0.0 Lymph # (Auto) 0.4 L [place] # (Auto) 0.1 Eos # (Auto) 0.0 Baso # (Auto) 0.0 Abs Immat Gran (auto) 0.00 Absolute Neuts (auto) 2.7 Absolute Nucleated RBC 0.000 Nucleated RBC % (auto) 0.0 VBG pH VBG pCO2 VBG pO2 VBG HCO3 VBG O2 Saturation VBG Base Excess Anion Gap Estim Creat Clear Calc Estimated GFR POC Glucose 157 H Random Glucose Lactic Acid Calcium Magnesium Total Bilirubin AST ALT Alkaline Phosphatase Troponin I High Sens NT-Pro-B Natriuret Pep Total Protein Albumin TSH Free T4 Urine Color Urine Appearance Urine pH Ur Specific [place] Urine Protein Urine Glucose (UA) Urine Ketones Urine Blood Urine Nitrite Ur Leukocyte Esterase Urine RBC Urine WBC Ur Squamous Epith Cells Urine Bacteria Hyaline Casts Influenza Type A (PCR) Influenza Type B (PCR) RSV RNA Qual (PCR) SARS-CoV-2 RNA (RT-PCR) Assessment and Plan (1) Chest pain: Status: Acute Plan 59 years old woman with past medical history significant for BOY on CPAP, pulmonary hypertension, COPD not on oxygen, autoimmune thyroid disease/hypothyroidism on levothyroxine, essential hypertension, CAD and type 2 diabetes mellitus on metformin and insulin presents to the ED complaining of worsening of breath over the last 2 days associated with flu-like symptoms, including chest pain and was noted to be Flu A + AHRF due to Flu A + in a pt with COPD/BOY Continue empiric IV antibiotics, we will deescalate based on response and C/S/sepsis workup Tamiflu 5 days Symptomatic treatment Continue nebulizing treatment both p.r.n. and scheduled Goal O2 80-92 Pulmonary hygiene BYO CPAP Continue CPAP per home use Chest pain- likely MSK likely her baseline + coughing no ACS TTE done on 05/11/2025: Conclusions: - The left ventricular systolic function is normal. The calculated ejection fraction is 63% by biplane method. - No obvious valvular pathology seen on this study. Continue monitoring on telemetry Replete electrolytes to goal Severe anxiety-Atarax p.r.n., Valium/Ativan p.r.n. Bipolar Continue home Cymbalta, Abilify, amitriptyline htn continue Imdur, losartan, hydrochlorothiazide Hypothyroid Levothyroxine Diabetes Insulin sliding scale DVT prophylaxis with Lovenox Full code Patient continues to be hypoxic requiring IV antibiotics, needs to have symptomatic treatment which is not available settings. If she responds, we will likely expect to be discharged in 1-2 days. Quality Stroke Does the patient have a stroke diagnosis?: No VTE Prior VTE?: No VTE Risk Level:: Medical - moderate - high VTE Device Contraindication: Treatment Not Indicated VTE Drug Contraindication: N/A - Med Ordered
[2025-07-09] MEDS: 0.9 % Sodium Chloride Flush 3 ML SYRINGE IVFLUSH (08:20)
[2025-07-09 08:22] LABS: Troponin-I High Sensitivity 12.6 ng/L (<3.5-17.0)
--- NOTE | 2025-07-09 10:21 | PHA.MEDREC ---
Pharmacy Consult ? Medication Reconciliation Pharmacy has completed the medication reconciliation. Spoke to patient to confirm medication list. Per patient, she uses the insulin lispro per sliding scale twice a day (first thing in the morning and after dinner), oxycocodone tid prn pain, ozempic 1 mg on sundays and isosorbide ER 30 mg bid. For lamotrigine, she is currently taking 12.5 mg daily and will titrate up to 25 mg daily next week. Last dose of medications was yesterday 07/08/25.
[2025-07-09 11:59] LABS: Glucose, Whole Blood 175 mg/dL (60-115)
--- NOTE | 2025-07-09 12:05 | PC.NURSE ---
upon taking over for pt at 0700 dilt gtt was held on previous shift. HR was in 90-100 during morning shift. HR jumped to 120-140 afib on tele. Pt reporting chest pain. Hospitalist notified. plan for repeat EKG, troponin, and to start dilt gtt per protocol
--- NOTE | 2025-07-09 12:07 | ECG_ITS ---
Test Reason : TACHY Blood Pressure : */* mmHG Vent. Rate : 118 BPM Atrial Rate : * BPM P-R Int : * ms QRS Dur : 78 ms QT Int : 324 ms P-R-T Axes : * 23 114 degrees QTcB Int : 454 ms Atrial fibrillation with rapid ventricular response Nonspecific T wave abnormality Abnormal ECG When compared with ECG of 09-Jul-2025 00:17, ST no longer depressed in Lateral leads Nonspecific T wave abnormality has replaced inverted T waves in Inferior leads Referred By: Gaye Prealta Electronically Signed By: ANTONI TOMLINSON MD
[2025-07-09 13:01] LABS: Troponin-I High Sensitivity 4.8 ng/L (<3.5-17.0)
[2025-07-09] MEDS: diazePAM 10 MG/2 ML CARTRIDGE 5 MG IVPUSH (14:32)
[2025-07-09] MEDS: Nicotine 14 MG PATCH.TD24 TRANSDERMA (15:31)
[2025-07-09] MEDS: Metoprolol Succinate ER 25 MG TAB.ER.24H PO (16:55)
[2025-07-09 17:05] LABS: Glucose, Whole Blood 181 mg/dL (60-115)
--- NOTE | 2025-07-09 18:12 | PC.NURSE ---
patient with HR of 120-148 on tele, no symptoms except for the breathing, hard time catching her breath but denies any CP, spoke with attending Dr Fraire who said just to monitor. Explained to provider that unsure how much Cardizem she has received as IV's have been an issue with leaking or downstream occlusions. Metoprolol PO was also given late. Patient is highly anxious. Reassurance given
[2025-07-09 20:44] LABS: Glucose, Whole Blood 223 mg/dL (60-115)
[2025-07-09] MEDS: oxyCODONE HCl Immed Release 5 MG TABLET PO (21:07)
[2025-07-09 21:08] LABS: Cannabinoid Screen Urine Not Detected (Not Detect)
[2025-07-10] VITALS (17 sets, daily range): BP systolic 114–138; BP diastolic 54–80; PULSE 72–145; RESP 14–20; TEMP 36–36.7; O2SAT 95–98
[2025-07-10] MEDS: Lactated Ringers 1,000 ML 125 ML IVCONT ×2 (05:26→12:25)
--- NOTE | 2025-07-10 07:00 | CA_ITS ---
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 Normal LV ejection fraction 65-70% with mildly increased LV wall thickness 2. Mildly dilated left atrium 3. Mild mitral regurgitation 4. Mildly elevated right ventricular systolic pressure is significantly elevated right atrial pressures 5. No gross pericardial effusion Findings Left Ventricle Normal left ventricular size and systolic function. There is mildly increased left ventricular wall thickness. The visually estimated ejection fraction is between 65-70%. Diastolic function is indeterminate on the basis of available data. Right Ventricle Mildly increased right ventricular cavity size. There is normal right ventricular systolic function. Atria The left atrium is mildly dilated. There is no evidence of interatrial shunt. The right atrium is likely dilated. Aortic Valve The aortic valve was not well visualized. There is no aortic valve stenosis. There is no aortic valve regurgitation. Mitral Valve There is mild anterior and posterior mitral leaflet thickening. There is mild mitral annular calcification. There is mild mitral valve regurgitation. There is no mitral valve stenosis. Pulmonic Valve The pulmonic valve is likely normal. There is trace pulmonic valve regurgitation. Tricuspid Valve Normal tricuspid valve structure. The right ventricular systolic pressure is 45 mmHg. Significantly elevated right atrial pressure. Mild pulmonary hypertension is present. Great Vessels All visible segments of the aorta are normal in size. The pulmonary artery was not well visualized. There is no dilatation of the ascending aorta measuring 2.90 cm. Venous The inferior vena cava is moderately dilated and collapses less than 50% with inspiration. Pericardium/Pleural There is no evidence of pericardial effusion. Prior Study Comparison Changes noted compared to prior study dated: 05/11/2025. RV systolic and right atrial pressures are increased Measurements 2D Linear Measurements IVSd: 1.23 0.6-0.9/0.6-1.0 cm LVIDd: 4.62 3.9-5.3/4.2-5.9 cm LVIDd Index: 2.41 2.4-3.2/2.2-3.1 cm/m2 LVIDs: 2.36 2.0-3.6 cm LVPWd: 1.23 0.7-1.1 cm LA Diam: 3.70 2.7-3.8/3.0-4.0 cm LAIDs Index: 1.93 1.5-2.3 cm/m2 LV Mass: 266.54 67-162/88-224 g LV Mass Index: 138.82 43-95/49-115 g/m2 LVOT Diam: 1.90 3.0+(-)1.3 cm 2D Systolic Function EF 4C: 67.10 >55% EF 2C: 63.40 >55% EF BiP: 65.10 >55% Mitral Valve MV Pk E: 1.20 MV Decel Time: 181.00 E'Lateral: 10.10 E'Medial: 9.35 E/E' Med: 12.80 E/E' Lat: 11.90 PHT: 53.00 MVA PHT: 4.15 Decel [place]: 6.72 Aortic Valve AoV Pk [place]: 1.55 AoV Mn [place]: 1.07 AoV VTI: 0.26 AoV Pk Grad: 10.00 Aov Mn Grad: 5.00 [place] Cont.VTI: 2.52 LVOT LVOT Pk [place]: 1.43 LVOT Mn [place]: 0.98 LVOT VTI: 0.23 LVOT Pk Grad: 8.00 LVOT Mn Grad: 5.00 LVOT Diam: 1.90 LVOT Area: 2.84 Diastolic Function MV Pk E: 1.20 E'Medial: 9.35 E/E' Med: 12.80 E' Laterial: 10.10 E/E' Lat: 11.90 Right Ventricle TAPSE (mm): 19.10 Tricuspid Valve TR Pk [place]: 2.76 TR Pk Grad: 30.00 RA Press: 15.00 RVSP: 45.00 Great Vessels Aorta Sinus of Valsalva: 3.20 2.0-3.5 cm Ao Asc: 2.90 2.1-3.4 cm Ao Arch: 3.00 Pulmonary Veins Pulm Vein S/D 0.90 Pulmonary Valve PV Pk [place]: 1.05 Peak PV Grad: 4.00 Updated in Other Vendor System with Status of Final Hector Fuentes MD electronically signed on 07/10/2025 4:23:13 PM with status of Final
[2025-07-10 07:30] LABS: Glucose, Whole Blood 219 mg/dL (60-115)
--- NOTE | 2025-07-10 07:34 | P.PNIM_ITS ---
Subjective Subjective Date of Service: 07/10/25 Interval History: Patient states she is feeling better than yest Review of Systems Review of Systems: Yes all other systems are reviewed and are negative Physical Exam 2 Exam: Exam: General: AO X 3, resp distress with accessory muscle usage, improved Resp: CTA bilateral, no accessory muscles used CVS: S1,S2,RRR GI: soft, non tender, non distended Neuro: motor grossly intact, alert Psych: appropriate affect, appropriate insight Vital Signs: Vital Signs: Last Vital Signs Temp 97.6 F 07/10/25 03:00 Pulse 111 H 07/10/25 05:31 Resp 16 07/10/25 05:31 BP 123/56 L 07/10/25 03:00 Pulse Ox 96 07/10/25 04:00 O2 Del Method Room Air 07/10/25 04:00 O2 Flow Rate 2 07/10/25 03:00 BMI result Body Mass Index 27.6 Objective Data Active Medications Acetaminophen (Acetaminophen 325 Mg Tablet) 975 mg PO Q6H PRN PRN Reason: Pain, Mild 1-3,fever,headache Last Admin: 07/09/25 20:56 Dose: 975 mg Documented By: PHUC Albuterol Sulfate (Albuterol Sulfate (0.083%) 2.5 Mg/3 Ml Vial.Neb) 2.5 mg INHALE Q2H PRN PRN Reason: Shortness of Breath/Wheezing Amlodipine Besylate (Amlodipine Besylate 10 Mg Tablet) 10 mg PO DAILY [facility]; Protocol Last Admin: 07/09/25 15:32 Dose: 10 mg Documented By: ISADORA Apixaban (Apixaban 5 Mg Tablet) 5 mg PO BID [facility] Last Admin: 07/09/25 20:58 Dose: 5 mg Documented By: PHUC Aripiprazole (Aripiprazole 2 Mg Tablet) 2 mg PO DAILY [facility] Last Admin: 07/09/25 16:54 Dose: 2 mg Documented By: LUPILLO Aspirin (Aspirin 81 Mg Tab.Chew) 81 mg PO DAILY [facility] Atorvastatin Calcium (Atorvastatin Calcium 40 Mg Tablet) 40 mg PO DAILY [facility] Last Admin: 07/09/25 15:31 Dose: 40 mg Documented By: ISADORA Calcium Carbonate (Calcium Carbonate 750 Mg Tab.Chew) 750 mg PO Q4H PRN PRN Reason: Heartburn Dextrose (Dextrose 50 % 25 Gm/50 Ml Syringe) 25 gm IVPUSH Q15M PRN; Protocol PRN Reason: per Hypoglycemia Standing Ord. Doxycycline Monohydrate (Doxycycline Monohydrate 100 Mg Capsule) 100 mg PO Q12H [facility] Last Admin: 07/09/25 20:55 Dose: 100 mg Documented By: PHUC Duloxetine HCl (Duloxetine Hcl 60 Mg Capsule.Dr) 60 mg PO DAILY [facility] Last Admin: 07/09/25 15:42 Dose: 60 mg Documented By: ISADORA Fluticasone/Umeclidinium/Vilanterol (Fluticasone/Umeclidinium/Vilanterol 200/62.5/25 Blst.W.Dev) 1 puff INHALE DAILY [facility] Last Admin: 07/09/25 14:39 Dose: Not Given Documented By: JAMES Non-Admin Reason: Med Not Available Glucose (Glucose Gel 15 Gm Gel..Gram.) 15 gm PO Q15M PRN; Protocol PRN Reason: per Hypoglycemia Standing Ord. Hydrochlorothiazide (Hydrochlorothiazide 12.5 Mg Tablet) 12.5 mg PO DAILY [facility] Hydroxyzine HCl (Hydroxyzine Hcl 25 Mg Tablet) 25 mg PO TID PRN PRN Reason: Anxiety Last Admin: 07/09/25 16:54 Dose: 25 mg Documented By: LUPILLO Diltiazem HCl 125 mg/ Sodium (Chloride) 125 mls @ 0 mls/hr IVCONT .Q0M [facility]; Protocol Last Titration: 07/09/25 22:58 Dose: 5 mg/hr, 5 mls/hr Documented By: PHUC Lactated Ringer's (Lr) 1,000 mls @ 125 mls/hr IVCONT .Q8H [facility] Last Admin: 07/10/25 05:26 Dose: 125 mls/hr Documented By: LILY Insulin Human Lispro (Insulin Lispro 100 Unit/Ml 3 Ml Vial) 0 unit SUBCUT QIDACHS [facility]; Protocol Last Admin: 07/09/25 20:58 Dose: 4 unit Documented By: PHUC Isosorbide Mononitrate (Isosorbide Mononitrate 30 Mg Tab.Er.24h) 30 mg PO BID [facility]; Protocol Last Admin: 07/09/25 21:06 Dose: 30 mg Documented By: PHUC Lamotrigine (Lamotrigine 25 Mg Tablet) 12.5 mg PO DAILY [facility] Last Admin: 07/09/25 15:33 Dose: 12.5 mg Documented By: ISADORA Levalbuterol HCl (Levalbuterol Hcl 1.25 Mg/3 Ml Vial.Neb) 1.25 mg INHALE Q4H [facility] Last Admin: 07/10/25 05:31 Dose: 1.25 mg Documented By: NELI Levothyroxine Sodium (Levothyroxine Sodium 125 Mcg Tablet) 125 mcg PO DAILY@0600 [facility] Last Admin: 07/10/25 05:56 Dose: Not Given Documented By: LILY Non-Admin Reason: Physician Held Med Comments: Hold per MD Ruslan Forrest Losartan Potassium (Losartan Potassium 50 Mg Tablet) 50 mg PO DAILY [facility] Magnesium Hydroxide (Milk Of Magnesia 30 Ml Oral.Susp) 30 ml PO DAILY PRN PRN Reason: Constipation Magnesium Oxide (Magnesium Oxide 400 Mg Tablet) 400 mg PO BEDTIME [facility] Last Admin: 07/09/25 20:56 Dose: 400 mg Documented By: PHUC Melatonin (Melatonin 3 Mg Tablet) 6 mg PO BEDTIME PRN PRN Reason: Insomnia Methylprednisolone Sodium Succinate (Methylprednisolone Sod Succ 40 Mg/Ml Vial) 40 mg IVPUSH Q12H [facility] Last Admin: 07/09/25 20:58 Dose: 40 mg Documented By: PHUC Metoprolol Succinate (Metoprolol Succinate Er 25 Mg Tab.Er.24h) 25 mg PO DAILY [facility]; Protocol Last Admin: 07/09/25 16:55 Dose: 25 mg Documented By: LUPILLO Metoprolol Tartrate (Metoprolol Tartrate 50 Mg Tablet) 50 mg PO BID [facility]; Protocol Last Admin: 07/09/25 20:56 Dose: 50 mg Documented By: PHUC Montelukast Sodium (Montelukast Sodium 10 Mg Tablet) 10 mg PO BEDTIME [facility] Last Admin: 07/09/25 20:56 Dose: 10 mg Documented By: PHUC Nicotine (Nicotine 14 Mg Patch.Td24) 14 mg TRANSDERMA DAILY [facility] Last Admin: 07/09/25 15:31 Dose: 14 mg Documented By: ISADORA Omeprazole (Omeprazole 20 Mg Capsule.) 20 mg PO BID@0630,1630 [facility] Last Admin: 07/10/25 05:31 Dose: 20 mg Documented By: LILY Oseltamivir Phosphate (Oseltamivir Phosphate 75 Mg Capsule) 75 mg PO BID [facility] Stop: 07/13/25 21:01 Last Admin: 07/09/25 20:57 Dose: 75 mg Documented By: PHUC Oxycodone HCl (Oxycodone Hcl Immed Release 5 Mg Tablet) 5 mg PO Q6H PRN PRN Reason: Fibromyalgia Last Admin: 07/09/25 21:07 Dose: 5 mg Documented By: PHUC Ropinirole HCl (Ropinirole Hcl 1 Mg Tablet) 3 mg PO BEDTIME [facility] Last Admin: 07/09/25 20:56 Dose: 3 mg Documented By: PHUC Sodium Chloride (0.9 % Sodium Chloride Flush 3 Ml Syringe) 3 ml IVFLUSH QSHIFT [facility] Last Admin: 07/10/25 04:28 Dose: Not Given Documented By: LILY Non-Admin Reason: Previously Administered Topiramate (Topiramate 25 Mg Tablet) 25 mg PO BID [facility] Last Admin: 07/09/25 20:57 Dose: 25 mg Documented By: PHUC Labs 07/09/25 07:54 07/09/25 05:39 Labs: Laboratory Results - last 24 hr 07/09/25 07/09/25 07/09/25 03:42 07:54 08:01 MCV 82.4 MCH 27.1 MCHC 32.9 RDW 14.6 Plt Count 203 MPV 9.6 Immature Gran % (Auto) 0.0 Neut % (Auto) 86.3 H Lymph % (Auto) 11.8 L [place] % (Auto) 1.9 L Eos % (Auto) 0.0 Baso % (Auto) 0.0 Lymph # (Auto) 0.4 L [place] # (Auto) 0.1 Eos # (Auto) 0.0 Baso # (Auto) 0.0 Abs Immat Gran (auto) 0.00 Absolute Neuts (auto) 2.7 Absolute Nucleated RBC 0.000 Nucleated RBC % (auto) 0.0 POC Glucose 157 H Troponin I High Sens 12.6 D Total T3 346 H Urine Opiates Screen Ur Buprenorphine Scrn Ur Oxycodone Screen Urine Methadone Screen Urine Fentanyl Screen Ur Barbiturates Screen Ur Phencyclidine Scrn Ur Amphetamines Screen U Benzodiazepines Scrn Urine Cocaine Screen U Marijuana (THC) Screen 07/09/25 07/09/25 07/09/25 11:53 12:35 16:47 MCV MCH MCHC RDW Plt Count MPV Immature Gran % (Auto) Neut % (Auto) Lymph % (Auto) Stephenson % (Auto) Eos % (Auto) Baso % (Auto) Lymph # (Auto) Stephenson # (Auto) Eos # (Auto) Baso # (Auto) Abs Immat Gran (auto) Absolute Neuts (auto) Absolute Nucleated RBC Nucleated RBC % (auto) POC Glucose 175 H 181 H Troponin I High Sens 4.8 D Total T3 Urine Opiates Screen Ur Buprenorphine Scrn Ur Oxycodone Screen Urine Methadone Screen Urine Fentanyl Screen Ur Barbiturates Screen Ur Phencyclidine Scrn Ur Amphetamines Screen U Benzodiazepines Scrn Urine Cocaine Screen U Marijuana (THC) Screen 07/09/25 07/09/25 07/10/25 20:27 20:47 07:25 MCV MCH MCHC RDW Plt Count MPV Immature Gran % (Auto) Neut % (Auto) Lymph % (Auto) Stephen[place] % (Auto) Eos % (Auto) Baso % (Auto) Lymph # (Auto) Stephenson # (Auto) Eos # (Auto) Baso # (Auto) Abs Immat Gran (auto) Absolute Neuts (auto) Absolute Nucleated RBC Nucleated RBC % (auto) POC Glucose 223 H 219 H Troponin I High Sens Total T3 Urine Opiates Screen POSITIVE H Ur Buprenorphine Scrn Not Detected Ur Oxycodone Screen Not Detected Urine Methadone Screen Not Detected Urine Fentanyl Screen Not Detected Ur Barbiturates Screen Not Detected Ur Phencyclidine Scrn Not Detected Ur Amphetamines Screen Not Detected U Benzodiazepines Scrn Not Detected Urine Cocaine Screen Not Detected U Marijuana (THC) Screen Not Detected Microbiology Microbiology Results: Microbiology 07/09/25 00:34 Blood Culture - Preliminary Blood - Venous No growth after 24 hours. 07/09/25 00:33 Blood Culture - Preliminary Blood - Venous No growth after 24 hours. Assessment and Plan (1) Chest pain: Status: Acute Plan 59 years old woman with past medical history significant for BOY on CPAP, pulmonary hypertension, COPD not on oxygen, autoimmune thyroid disease/hypothyroidism on levothyroxine, essential hypertension, CAD and type 2 diabetes mellitus on metformin and insulin presents to the ED complaining of worsening of breath over the last 2 days associated with flu-like symptoms, including chest pain and was noted to be Flu A + AHRF due to Flu A + in a pt with COPD/BOY Continue empiric IV antibiotics, we will deescalate based on response and C/S/sepsis workup Tamiflu 5 days- D2/5 Symptomatic treatment Continue nebulizing treatment both p.r.n. and scheduled Goal O2 80-92 Pulmonary hygiene BOY CPAP Continue CPAP per home use Chest pain- likely MSK likely her baseline + coughing no ACS TTE done on 05/11/2025: Conclusions: - The left ventricular systolic function is normal. The calculated ejection fraction is 63% by biplane method. - No obvious valvular pathology seen on this study. Continue monitoring on telemetry Replete electrolytes to goal Severe anxiety-Atarax p.r.n., Valium/Ativan p.r.n. Bipolar Continue home Cymbalta, Abilify, amitriptyline htn continue Imdur, losartan, hydrochlorothiazide Hypothyroid Levothyroxine Diabetes Insulin sliding scale DVT prophylaxis with Lovenox Full code Patient continues to be hypoxic requiring IV antibiotics, needs to have symptomatic treatment which is not available settings. If she responds, we will likely expect to be discharged in 1-2 days. Quality Stroke Does the patient have a stroke diagnosis?: No VTE Prior VTE?: No VTE Risk Level:: Medical - moderate - high VTE Device Contraindication: Treatment Not Indicated VTE Drug Contraindication: N/A - Med Ordered
[2025-07-10] MEDS: oxyCODONE HCl Immed Release 5 MG TABLET PO ×2 (08:05→20:04)
[2025-07-10] MEDS: 0.9 % Sodium Chloride Flush 3 ML SYRINGE IVFLUSH ×3 (08:08→20:07)
[2025-07-10] MEDS: Nicotine 14 MG PATCH.TD24 TRANSDERMA (08:11)
[2025-07-10] MEDS: Fluticasone/Umeclidinium/Vilanterol 200/62.5/25 BLST.W.DEV 1 PUFF INHALE (08:43)
[2025-07-10 11:38] LABS: Glucose, Whole Blood 247 mg/dL (60-115)
--- NOTE | 2025-07-10 12:54 | MHC.CM.PN ---
PT REPORTS SHE LIVES ALONE AND IS INDEPENDENT WITH SELF CARE SHE HAS A TAX MANAGER 6.5 HRS PER WEEK TO ASSIST WITH HOUSEWORK SHE USES A SHOWER CHAIR FOR DME COPY OF HCP REQUESTED, SHE REPORTS HER SISTER IS HER AGENT PCP: SHANKAR FAJARDO DELIVERED DCP: HOME, RESUME TAX MANAGER FAMILY TO TRANSPORT
[2025-07-10 15:50] LABS: Glucose, Whole Blood 237 mg/dL (60-115)
[2025-07-10 20:09] LABS: Glucose, Whole Blood 279 mg/dL (60-115)
[2025-07-11] VITALS (18 sets, daily range): BP systolic 94–132; BP diastolic 55–64; PULSE 82–117; RESP 14–22; TEMP 36.3–36.8; O2SAT 91–97
[2025-07-11 07:18] LABS: Glucose, Whole Blood 286 mg/dL (60-115)
--- NOTE | 2025-07-11 07:32 | HO.PM.IMPN ---
Subjective Subjective Date of Service: 07/11/25 Interval History: Patient reports that she just started her lamotrigine unlikely that caused her to have AFib with RVR and hence would like to stay off of it Increased her Atarax to 50 b.i.d. for severe anxiety Review of Systems Review of Systems: Yes all other systems are reviewed and are negative Physical Exam Exam: Exam: General: AO X 3, resp distress with accessory muscle usage, improved Resp: CTA bilateral, no accessory muscles used CVS: S1,S2,RRR GI: soft, non tender, non distended Neuro: motor grossly intact, alert Psych: anxious Vital Signs: Vital Signs: Last Vital Signs Temp 98.3 F 07/11/25 07:17 Pulse 106 H 07/11/25 07:17 Resp 20 07/11/25 07:17 BP 132/62 07/11/25 07:17 Pulse Ox 95 07/11/25 07:17 O2 Del Method Room Air 07/11/25 07:17 O2 Flow Rate 2 07/10/25 03:00 BMI result Body Mass Index 27.6 Objective Data Active Medications Acetaminophen (Acetaminophen 325 Mg Tablet) 975 mg PO Q6H PRN PRN Reason: Pain, Mild 1-3,fever,headache Last Admin: 07/09/25 20:56 Dose: 975 mg Documented By: PHUC Albuterol Sulfate (Albuterol Sulfate (0.083%) 2.5 Mg/3 Ml Vial.Neb) 2.5 mg INHALE Q2H PRN PRN Reason: Shortness of Breath/Wheezing Amlodipine Besylate (Amlodipine Besylate 10 Mg Tablet) 10 mg PO DAILY [facility]; Protocol Last Admin: 07/10/25 09:49 Dose: 10 mg Documented By: RADHA Apixaban (Apixaban 5 Mg Tablet) 5 mg PO BID [facility] Last Admin: 07/10/25 20:05 Dose: 5 mg Documented By: YANI Aripiprazole (Aripiprazole 2 Mg Tablet) 2 mg PO DAILY [facility] Last Admin: 07/10/25 08:08 Dose: 2 mg Documented By: RADHA Aspirin (Aspirin 81 Mg Tab.Chew) 81 mg PO DAILY [facility] Last Admin: 07/10/25 08:08 Dose: 81 mg Documented By: RADHA Atorvastatin Calcium (Atorvastatin Calcium 40 Mg Tablet) 40 mg PO DAILY [facility] Last Admin: 07/10/25 08:08 Dose: 40 mg Documented By: RADHA Calcium Carbonate (Calcium Carbonate 750 Mg Tab.Chew) 750 mg PO Q4H PRN PRN Reason: Heartburn Dextrose (Dextrose 50 % 25 Gm/50 Ml Syringe) 25 gm IVPUSH Q15M PRN; Protocol PRN Reason: per Hypoglycemia Standing Ord. Doxycycline Monohydrate (Doxycycline Monohydrate 100 Mg Capsule) 100 mg PO Q12H [facility] Last Admin: 07/10/25 20:05 Dose: 100 mg Documented By: YANI Duloxetine HCl (Duloxetine Hcl 60 Mg Capsule.Dr) 60 mg PO DAILY [facility] Last Admin: 07/10/25 08:08 Dose: 60 mg Documented By: RADHA Fluticasone/Umeclidinium/Vilanterol (Fluticasone/Umeclidinium/Vilanterol 200/62.5/25 Blst.W.Dev) 1 puff INHALE DAILY [facility] Last Admin: 07/10/25 08:43 Dose: 1 puff Documented By: YANIV Glucose (Glucose Gel 15 Gm Gel..Gram.) 15 gm PO Q15M PRN; Protocol PRN Reason: per Hypoglycemia Standing Ord. Hydrochlorothiazide (Hydrochlorothiazide 12.5 Mg Tablet) 12.5 mg PO DAILY [facility] Last Admin: 07/10/25 08:08 Dose: 12.5 mg Documented By: RADHA Hydroxyzine HCl (Hydroxyzine Hcl 25 Mg Tablet) 25 mg PO TID PRN PRN Reason: Anxiety Last Admin: 07/09/25 16:54 Dose: 25 mg Documented By: LUPILLO Diltiazem HCl 125 mg/ Sodium (Chloride) 125 mls @ 0 mls/hr IVCONT .Q0M [facility]; Protocol Last Admin: 07/11/25 00:52 Dose: 10 mg/hr, 10 mls/hr Documented By: YANI Insulin Human Lispro (Insulin Lispro 100 Unit/Ml 3 Ml Vial) 0 unit SUBCUT QIDACHS [facility]; Protocol Last Admin: 07/10/25 20:14 Dose: 6 unit Documented By: YANI Isosorbide Mononitrate (Isosorbide Mononitrate 30 Mg Tab.Er.24h) 30 mg PO BID [facility]; Protocol Last Admin: 12/26/25 20:05 Dose: 30 mg Documented By: YANI Lamotrigine (Lamotrigine 25 Mg Tablet) 12.5 mg PO DAILY [facility] Last Admin: 07/10/25 08:06 Dose: 12.5 mg Documented By: RADHA Levalbuterol HCl (Levalbuterol Hcl 1.25 Mg/3 Ml Vial.Neb) 1.25 mg INHALE Q4H [facility] Last Admin: 07/11/25 05:32 Dose: 1.25 mg Documented By: TOMAS Levothyroxine Sodium (Levothyroxine Sodium 125 Mcg Tablet) 125 mcg PO DAILY@0600 [facility] Last Admin: 07/11/25 05:34 Dose: 125 mcg Documented By: YANI Losartan Potassium (Losartan Potassium 50 Mg Tablet) 50 mg PO DAILY [facility] Last Admin: 07/10/25 09:49 Dose: 50 mg Documented By: RADHA Magnesium Hydroxide (Milk Of Magnesia 30 Ml Oral.Susp) 30 ml PO DAILY PRN PRN Reason: Constipation Magnesium Oxide (Magnesium Oxide 400 Mg Tablet) 400 mg PO BEDTIME [facility] Last Admin: 07/10/25 20:06 Dose: 400 mg Documented By: YANI Melatonin (Melatonin 3 Mg Tablet) 6 mg PO BEDTIME PRN PRN Reason: Insomnia Last Admin: 07/10/25 20:06 Dose: 6 mg Documented By: YANI Methylprednisolone Sodium Succinate (Methylprednisolone Sod Succ 40 Mg/Ml Vial) 40 mg IVPUSH Q12H [facility] Last Admin: 07/10/25 20:10 Dose: 40 mg Documented By: YANI Metoprolol Tartrate (Metoprolol Tartrate 50 Mg Tablet) 50 mg PO BID [facility]; Protocol Last Admin: 07/10/25 20:05 Dose: 50 mg Documented By: YANI Montelukast Sodium (Montelukast Sodium 10 Mg Tablet) 10 mg PO BEDTIME [facility] Last Admin: 07/10/25 20:05 Dose: 10 mg Documented By: YANI Nicotine (Nicotine 14 Mg Patch.Td24) 14 mg TRANSDERMA DAILY [facility] Last Admin: 07/10/25 08:11 Dose: 14 mg Documented By: RADHA Omeprazole (Omeprazole 20 Mg Capsule.Dr) 20 mg PO BID@0630,9090 [facility] Last Admin: 07/11/25 05:35 Dose: 20 mg Documented By: YANI Oseltamivir Phosphate (Oseltamivir Phosphate 75 Mg Capsule) 75 mg PO BID [facility] Stop: 07/13/25 21:01 Last Admin: 07/10/25 20:05 Dose: 75 mg Documented By: YANI Oxycodone HCl (Oxycodone Hcl Immed Release 5 Mg Tablet) 5 mg PO Q6H PRN PRN Reason: Fibromyalgia Last Admin: 07/10/25 20:04 Dose: 5 mg Documented By: YANI Ropinirole HCl (Ropinirole Hcl 1 Mg Tablet) 3 mg PO BEDTIME [facility] Last Admin: 07/10/25 20:06 Dose: 3 mg Documented By: YANI Sodium Chloride (0.9 % Sodium Chloride Flush 3 Ml Syringe) 3 ml IVFLUSH QSHIFT [facility] Last Admin: 07/10/25 20:07 Dose: 3 ml Documented By: YANI Topiramate (Topiramate 25 Mg Tablet) 25 mg PO BID [facility] Last Admin: 07/10/25 20:05 Dose: 25 mg Documented By: YANI Labs 07/09/25 07:54 07/09/25 05:39 Labs: Laboratory Results - last 24 hr 07/10/25 07/10/25 07/10/25 11:30 15:45 20:05 POC Glucose 247 H 237 H 279 H 07/11/25 07:07 POC Glucose 286 H Microbiology Microbiology Results: Microbiology 07/09/25 00:34 Blood Culture - Preliminary Blood - Venous No growth after 48 hours. 07/09/25 00:33 Blood Culture - Preliminary Blood - Venous No growth after 48 hours. Assessment and Plan (1) Chest pain: Status: Acute Plan 59 years old woman with past medical history significant for BOY on CPAP, pulmonary hypertension, COPD not on oxygen, autoimmune thyroid disease/hypothyroidism on levothyroxine, essential hypertension, CAD and type 2 diabetes mellitus on metformin and insulin presents to the ED complaining of worsening of breath over the last 2 days associated with flu-like symptoms, including chest pain and was noted to be Flu A + AHRF due to Flu A + in a pt with COPD/BOY Tamiflu 5 days- D3/5 doxycycline (antiinflammatory effect) no abx for viral flu Symptomatic treatment Continue nebulizing treatment both p.r.n. and scheduled Goal O2 80-92 Pulmonary hygiene BOY CPAP Continue CPAP per home use Chest pain- likely MSK likely her baseline + coughing no ACS TTE done on 05/11/2025: Conclusions: - The left ventricular systolic function is normal. The calculated ejection fraction is 63% by biplane method. - No obvious valvular pathology seen on this study. Continue monitoring on telemetry Replete electrolytes to goal Severe anxiety-Increae Atarax p.r.n., Valium/Ativan p.r.n. Pt states she just started Lamotrigene 2 weeks ago and hence odell had Afib since then and hence will stop Lamotrigene and increase atarax instead aFIB with RVR odell due to flu Stop digoxin Eliquis Start Metoprolol Tele check electrolytes and replete to goal Bipolar Continue home Cymbalta, Abilify, amitriptyline htn continue Imdur, losartan, hydrochlorothiazide Hypothyroid Levothyroxine Diabetes Insulin sliding scale DVT prophylaxis with Lovenox Full code Patient continues to be hypoxic requiring IV antibiotics, needs to have symptomatic treatment which is not available settings. If she responds, we will likely expect to be discharged in 1-2 days. Quality Stroke Does the patient have a stroke diagnosis?: No VTE Prior VTE?: No VTE Risk Level:: Medical - moderate - high VTE Device Contraindication: Treatment Not Indicated VTE Drug Contraindication: N/A - Med Ordered
[2025-07-11] MEDS: Fluticasone/Umeclidinium/Vilanterol 200/62.5/25 BLST.W.DEV 1 PUFF INHALE (07:46)
[2025-07-11] MEDS: oxyCODONE HCl Immed Release 5 MG TABLET PO ×2 (08:17→20:26)
[2025-07-11] MEDS: 0.9 % Sodium Chloride Flush 3 ML SYRINGE IVFLUSH ×2 (08:19→16:43)
[2025-07-11] MEDS: Nicotine 14 MG PATCH.TD24 TRANSDERMA (08:21)
[2025-07-11 10:58] LABS: Glucose, Whole Blood 129 mg/dL (60-115)
[2025-07-11 16:14] LABS: Glucose, Whole Blood 236 mg/dL (60-115)
[2025-07-11 20:28] LABS: Glucose, Whole Blood 262 mg/dL (60-115)
[2025-07-12] MEDS: 0.9 % Sodium Chloride Flush 3 ML SYRINGE IVFLUSH ×2 (02:00→08:04)
[2025-07-12 03:11] VITALS: BP 108/55; PULSE 117; RESP 17; TEMP 36.4; O2SAT 93
[2025-07-12 06:04] VITALS: PULSE 108; RESP 22; O2SAT 95
[2025-07-12 07:15] LABS: MANUAL DIFF FLAG NO
[2025-07-12 07:19] LABS: Hematocrit 33.7 % (37.0-47.0); Hemoglobin 11.3 g/dl (12.0-16.0); Imm Gran Abs Auto 0.03 X10*3/uL (0.00-0.03); Imm Gran Pct Auto 0.5 % (0.0-0.4); Lymphocytes Absolute Auto 0.9 X10*3/uL (1.2-4.9); Mean Corpuscular HGB Conc 33.5 g/dl (31.0-35.0); Mean Corpuscular Hemoglobin 27.3 pg (27.0-33.0); Mean Corpuscular Volume 81.4 fL (80.0-98.0); NRBC Abs Auto 0.000 X10*3/uL (0.0-0.012); NRBC Pct Auto 0.0 /100WBC (0.0-0.2); Platelet Count 240 X10*3/uL (160-400); Red Blood Count 4.14 X10*6/uL (4.20-5.50); White Blood Count 5.6 X10*3/uL (4.8-10.8)
[2025-07-12 07:31] LABS: Alanine Aminotransferase 29 U/L (0-31); Albumin Level 3.7 g/dL (3.5-5.0); Alkaline Phosphatase 65 U/L (39-117); Anion Gap 16 (12-20); Aspartate Amino Transferase 27 U/L (5-31); Blood Urea Nitrogen 24 mg/dL (9-16); Calcium 9.0 mg/dL (8.4-10.2); Carbon Dioxide 23 mmol/L (22-29); Chloride 107 mmol/L (96-108); Creatinine Clr Calc Pharmacy 104.6; Estimated Glomerular Filt Rate > 60; Magnesium 2.4 mg/dL (1.6-2.6); Potassium 3.7 mmol/L (3.3-5.1); Sodium 142 mmol/L (135-145); Total Protein 6.2 g/dL (6.5-8.0)
--- NOTE | 2025-07-12 07:32 | HO.PM.IMPN ---
Subjective Subjective Date of Service: 07/12/25 Interval History: Patient reports significant improvement in her anxiety Review of Systems Review of Systems: Yes all other systems are reviewed and are negative Physical Exam Vital Signs: Vital Signs: Last Vital Signs Temp 97.6 F 07/12/25 03:11 Pulse 108 H 07/12/25 06:04 Resp 22 H 07/12/25 06:04 BP 108/55 L 07/12/25 03:11 Pulse Ox 93 07/12/25 03:11 O2 Del Method Room Air 07/12/25 03:11 O2 Flow Rate 2 07/10/25 03:00 BMI result Body Mass Index 27.6 Objective Data Active Medications Acetaminophen (Acetaminophen 325 Mg Tablet) 975 mg PO Q6H PRN PRN Reason: Pain, Mild 1-3,fever,headache Last Admin: 07/09/25 20:56 Dose: 975 mg Documented By: PHUC Albuterol Sulfate (Albuterol Sulfate (0.083%) 2.5 Mg/3 Ml Vial.Neb) 2.5 mg INHALE Q2H PRN PRN Reason: Shortness of Breath/Wheezing Amlodipine Besylate (Amlodipine Besylate 10 Mg Tablet) 10 mg PO DAILY [facility]; Protocol Last Admin: 07/11/25 08:20 Dose: 10 mg Documented By: RADHA Apixaban (Apixaban 5 Mg Tablet) 5 mg PO BID [facility] Last Admin: 07/11/25 20:25 Dose: 5 mg Documented By: BARBARA Aripiprazole (Aripiprazole 2 Mg Tablet) 2 mg PO DAILY [facility] Last Admin: 07/11/25 08:20 Dose: 2 mg Documented By: RADHA Aspirin (Aspirin 81 Mg Tab.Chew) 81 mg PO DAILY [facility] Last Admin: 07/11/25 08:21 Dose: 81 mg Documented By: RADHA Atorvastatin Calcium (Atorvastatin Calcium 40 Mg Tablet) 40 mg PO DAILY [facility] Last Admin: 07/11/25 08:20 Dose: 40 mg Documented By: RADHA Calcium Carbonate (Calcium Carbonate 750 Mg Tab.Chew) 750 mg PO Q4H PRN PRN Reason: Heartburn Dextrose (Dextrose 50 % 25 Gm/50 Ml Syringe) 25 gm IVPUSH Q15M PRN; Protocol PRN Reason: per Hypoglycemia Standing Ord. Doxycycline Monohydrate (Doxycycline Monohydrate 100 Mg Capsule) 100 mg PO Q12H [facility] Stop: 07/14/25 08:59 Last Admin: 07/11/25 20:25 Dose: 100 mg Documented By: BARBARA Duloxetine HCl (Duloxetine Hcl 60 Mg Capsule.) 60 mg PO DAILY [facility] Last Admin: 07/11/25 08:20 Dose: 60 mg Documented By: RADHA Fluticasone/Umeclidinium/Vilanterol (Fluticasone/Umeclidinium/Vilanterol 200/62.5/25 Blst.W.Dev) 1 puff INHALE DAILY [facility] Last Admin: 07/11/25 07:46 Dose: 1 puff Documented By: JAMES Glucose (Glucose Gel 15 Gm Gel..Gram.) 15 gm PO Q15M PRN; Protocol PRN Reason: per Hypoglycemia Standing Ord. Hydrochlorothiazide (Hydrochlorothiazide 12.5 Mg Tablet) 12.5 mg PO DAILY [facility] Last Admin: 07/11/25 08:21 Dose: 12.5 mg Documented By: RADHA Hydroxyzine HCl (Hydroxyzine Hcl 50 Mg Tablet) 50 mg PO TID [facility] Last Admin: 07/11/25 20:25 Dose: 50 mg Documented By: BARBARA Insulin Human Lispro (Insulin Lispro 100 Unit/Ml 3 Ml Vial) 0 unit SUBCUT QIDACHS [facility]; Protocol Last Admin: 07/11/25 20:34 Dose: 6 unit Documented By: BARBARA Isosorbide Mononitrate (Isosorbide Mononitrate 30 Mg Tab.Er.24h) 30 mg PO BID [facility]; Protocol Last Admin: 07/11/25 20:25 Dose: 30 mg Documented By: BARBARA Levalbuterol HCl (Levalbuterol Hcl 1.25 Mg/3 Ml Vial.Neb) 1.25 mg INHALE Q4H [facility] Last Admin: 07/12/25 06:04 Dose: 1.25 mg Documented By: TOMAS Levothyroxine Sodium (Levothyroxine Sodium 125 Mcg Tablet) 125 mcg PO DAILY@0600 [facility] Last Admin: 07/12/25 06:22 Dose: 125 mcg Documented By: BARBARA Losartan Potassium (Losartan Potassium 50 Mg Tablet) 50 mg PO DAILY [facility] Last Admin: 07/11/25 08:20 Dose: 50 mg Documented By: RADHA Magnesium Hydroxide (Milk Of Magnesia 30 Ml Oral.Susp) 30 ml PO DAILY PRN PRN Reason: Constipation Magnesium Oxide (Magnesium Oxide 400 Mg Tablet) 400 mg PO BEDTIME HOME Last Admin: 07/11/25 20:25 Dose: 400 mg Documented By: BARBARA Melatonin (Melatonin 3 Mg Tablet) 6 mg PO BEDTIME PRN PRN Reason: Insomnia Last Admin: 07/10/25 20:06 Dose: 6 mg Documented By: YANI Methylprednisolone Sodium Succinate (Methylprednisolone Sod Succ 40 Mg/Ml Vial) 40 mg IVPUSH Q12H [facility] Last Admin: 07/11/25 20:41 Dose: 40 mg Documented By: BARBARA Metoprolol Tartrate (Metoprolol Tartrate 50 Mg Tablet) 50 mg PO BID [facility]; Protocol Last Admin: 07/11/25 20:26 Dose: 50 mg Documented By: BARBARA Montelukast Sodium (Montelukast Sodium 10 Mg Tablet) 10 mg PO BEDTIME [facility] Last Admin: 07/11/25 20:25 Dose: 10 mg Documented By: BARBARA Nicotine (Nicotine 14 Mg Patch.Td24) 14 mg TRANSDERMA DAILY [facility] Last Admin: 07/11/25 08:21 Dose: 14 mg Documented By: RADHA Omeprazole (Omeprazole 20 Mg Capsule.Dr) 20 mg PO BID@0630,1630 [facility] Last Admin: 07/12/25 06:22 Dose: 20 mg Documented By: BARBARA Oseltamivir Phosphate (Oseltamivir Phosphate 75 Mg Capsule) 75 mg PO BID [facility] Stop: 07/13/25 21:01 Last Admin: 07/11/25 20:25 Dose: 75 mg Documented By: BARBARA Oxycodone HCl (Oxycodone Hcl Immed Release 5 Mg Tablet) 5 mg PO Q6H PRN PRN Reason: Fibromyalgia Last Admin: 07/11/25 20:26 Dose: 5 mg Documented By: BARBARA Ropinirole HCl (Ropinirole Hcl 1 Mg Tablet) 3 mg PO BEDTIME [facility] Last Admin: 07/11/25 20:25 Dose: 3 mg Documented By: BARBARA Sodium Chloride (0.9 % Sodium Chloride Flush 3 Ml Syringe) 3 ml IVFLUSH QSHIFT [facility] Last Admin: 07/12/25 02:00 Dose: 3 ml Documented By: BARBARA Topiramate (Topiramate 25 Mg Tablet) 25 mg PO BID [facility] Last Admin: 07/11/25 20:25 Dose: 25 mg Documented By: BARBARA Labs 07/12/25 06:03 07/12/25 06:03 Labs: Laboratory Results - last 24 hr 07/11/25 07/11/25 07/11/25 10:47 16:02 20:18 MCV MCH MCHC RDW Plt Count MPV Immature Gran % (Auto) Neut % (Auto) Lymph % (Auto) Sherman % (Auto) Eos % (Auto) Baso % (Auto) Lymph # (Auto) Sherman # (Auto) Eos # (Auto) Baso # (Auto) Abs Immat Gran (auto) Absolute Neuts (auto) Absolute Nucleated RBC Nucleated RBC % (auto) Anion Gap Estim Creat Clear Calc Estimated GFR POC Glucose 129 H 236 H 262 H Random Glucose Calcium Magnesium Total Bilirubin AST ALT Alkaline Phosphatase Total Protein Albumin 07/12/25 06:03 MCV 81.4 MCH 27.3 MCHC 33.5 RDW 14.6 Plt Count 240 MPV 10.2 Immature Gran % (Auto) 0.5 H Neut % (Auto) 76.9 H Lymph % (Auto) 16.7 L Sherman % (Auto) 5.9 Eos % (Auto) 0.0 Baso % (Auto) 0.0 Lymph # (Auto) 0.9 L Sherman # (Auto) 0.3 Eos # (Auto) 0.0 Baso # (Auto) 0.0 Abs Immat Gran (auto) 0.03 Absolute Neuts (auto) 4.3 Absolute Nucleated RBC 0.000 Nucleated RBC % (auto) 0.0 Anion Gap 16 Estim Creat Clear Calc 104.6 Estimated GFR > 60 POC Glucose Random Glucose 216 H Calcium 9.0 Magnesium 2.4 Total Bilirubin 0.4 AST 27 ALT 29 Alkaline Phosphatase 65 Total Protein 6.2 L Albumin 3.7 Microbiology Microbiology Results: Microbiology 07/09/25 00:34 Blood Culture - Preliminary Blood - Venous No growth after 48 hours. 07/09/25 00:33 Blood Culture - Preliminary Blood - Venous No growth after 48 hours. Quality Stroke Does the patient have a stroke diagnosis?: No VTE Prior VTE?: No VTE Risk Level:: Medical - moderate - high VTE Device Contraindication: Treatment Not Indicated VTE Drug Contraindication: N/A - Med Ordered
[2025-07-12] MEDS: Fluticasone/Umeclidinium/Vilanterol 200/62.5/25 BLST.W.DEV 1 PUFF INHALE (07:37)
[2025-07-12 07:39] VITALS: PULSE 134; RESP 18
[2025-07-12 07:48] VITALS: BP 126/63; PULSE 119; RESP 18; TEMP 36.6; O2SAT 97
[2025-07-12 07:50] LABS: Glucose, Whole Blood 238 mg/dL (60-115)
[2025-07-12] MEDS: Nicotine 14 MG PATCH.TD24 TRANSDERMA (08:02)
--- NOTE | 2025-07-12 08:53 | PC.NURSE ---
Afib Hr 120' 140's at rest ,n o chest pain no no dizziness , Dr Peralta notified , Metoprolol changed to 4 x day
[2025-07-12 09:37] VITALS: PULSE 113; PULSE 135; O2SAT 96; O2SAT 97
[2025-07-12 11:14] VITALS: BP 103/55; PULSE 105; RESP 18; TEMP 36.6; O2SAT 97
[2025-07-12 11:21] LABS: Glucose, Whole Blood 253 mg/dL (60-115)
--- NOTE | 2025-07-12 14:12 | MHC.CM.PN ---
IMM 07/10/25 Patient is discharged to home self care today. She has arranged for a family member to provide a ride home.
--- NOTE | 2025-07-12 14:15 | PM.DS ---
DS: Providers Provider Date of admission: 07/09/25 04:54 Date of discharge: 07/12/25 Primary care physician: Virginie Lopez MD DS: Diagnosis Discharge Diagnosis (1) Chest pain: Status: Acute DS: Summary Hospital Course Hospital Course: Hospital course: Acute hypoxic respiratory failure due to flu a The patient presented with worsening shortness of breath for two days associated with flu?like symptoms and chest pain. She was found to be Influenza A positive and developed acute hypoxic respiratory failure in the setting of underlying COPD and BOY. She was treated with oseltamivir, bronchodilator therapy, pulmonary hygiene, and supplemental oxygen with improvement in respiratory status. Patient has a day and a half more of doxycycline and Tamiflu, steroid 5 day course prescribed. Home O2 eval done no oxygen requirements Chest pain Chest pain was determined to be musculoskeletal, exacerbated by coughing, with no evidence of acute coronary syndrome. A transthoracic echocardiogram performed on 05/11/2025 demonstrated normal left ventricular systolic function with an ejection fraction of 63% and no significant valvular disease. New onset AFib with RVR-unknown chronicity During hospitalization, the patient developed atrial fibrillation with rapid ventricular response, likely triggered by acute infection. Digoxin was discontinued, and rate control was achieved with metoprolol. She remained anticoagulated with apixaban and was monitored on telemetry without further complications. Echo and troponin were unremarkable. Patient continues to have intermittent exertional tachycardia for which we have increased metoprolol dose as noted below. Patient has been advised to follow up with PCP , Cardiology outpatient Worsening anxiety Anxiety was noted to be severe during admission. Lamotrigine, recently started two weeks prior, was discontinued due to patient concern regarding temporal association with arrhythmia. Hydroxyzine was increased as needed with symptomatic improvement. Hence I have instructed her to follow up with her primary psychiatrist who prescribed her lamotrigine. Chronic medical conditions BOY CPAP per home use, advised to follow up with pulmonology Bipolar Continue home Cymbalta, Abilify, amitriptyline htn continue Imdur, losartan, hydrochlorothiazide Hypothyroid Levothyroxine Diabetes Insulin sliding scale DVT prophylaxis with Lovenox The patient?s oxygen requirements improved, and she remained hemodynamically stable, tolerating medications and therapies. She was deemed medically stable for discharge. Time spent discussing smoking cessation with patient: more than 10 minutes Status at Discharge Functional status at discharge: independent ambulation Overall status at discharge: patient is back to baseline Time Attestation Discharge Coordination Time (in mins): 75 Quality: Safe Use of Opioids Does Pt have an Active Cancer Diagnosis on the Problem List?: No Quality: Stroke Does the patient have a stroke diagnosis?: No Physical Exam Exam: Exam: General: AO X 3, resp distress resolved Resp: CTA bilateral, no accessory muscles used CVS: S1,S2,RRR GI: soft, non tender, non distended Neuro: motor grossly intact, alert Psych: anxious Vital Signs: Vital Signs: Last Vital Signs Temp 97.8 F 07/12/25 11:14 Pulse 105 H 07/12/25 11:14 Resp 18 07/12/25 11:14 BP 103/55 L 07/12/25 11:14 Pulse Ox 97 07/12/25 11:14 O2 Del Method Room Air 07/12/25 11:14 O2 Flow Rate 2 07/10/25 03:00 BMI result Body Mass Index 27.6 DS: Data Data Completed and Pending Labs on day of discharge: Laboratory Results - last 24 hr 07/11/25 07/11/25 07/12/25 16:02 20:18 06:03 WBC 5.6 RBC 4.14 L Hgb 11.3 L Hct 33.7 L MCV 81.4 MCH 27.3 MCHC 33.5 RDW 14.6 Plt Count 240 MPV 10.2 Immature Gran % (Auto) 0.5 H Neut % (Auto) 76.9 H Lymph % (Auto) 16.7 L [place] % (Auto) 5.9 Eos % (Auto) 0.0 Baso % (Auto) 0.0 Lymph # (Auto) 0.9 L [place] # (Auto) 0.3 Eos # (Auto) 0.0 Baso # (Auto) 0.0 Abs Immat Gran (auto) 0.03 Absolute Neuts (auto) 4.3 Absolute Nucleated RBC 0.000 Nucleated RBC % (auto) 0.0 Sodium 142 Potassium 3.7 Chloride 107 Carbon Dioxide 23 Anion Gap 16 BUN 24 H Creatinine 0.63 Estim Creat Clear Calc 104.6 Estimated GFR > 60 POC Glucose 236 H 262 H Random Glucose 216 H Calcium 9.0 Magnesium 2.4 Total Bilirubin 0.4 AST 27 ALT 29 Alkaline Phosphatase 65 Total Protein 6.2 L Albumin 3.7 07/12/25 07/12/25 07:45 11:17 WBC RBC Hgb Hct MCV MCH MCHC RDW Plt Count MPV Immature Gran % (Auto) Neut % (Auto) Lymph % (Auto) [place] % (Auto) Eos % (Auto) Baso % (Auto) Lymph # (Auto) [place] # (Auto) Eos # (Auto) Baso # (Auto) Abs Immat Gran (auto) Absolute Neuts (auto) Absolute Nucleated RBC Nucleated RBC % (auto) Sodium Potassium Chloride Carbon Dioxide Anion Gap BUN Creatinine Estim Creat Clear Calc Estimated GFR POC Glucose 238 H 253 H Random Glucose Calcium Magnesium Total Bilirubin AST ALT Alkaline Phosphatase Total Protein Albumin Preliminary micro results at discharge 07/09/25 00:34 Blood Culture - Preliminary Blood - Venous No growth after 48 hours. 07/09/25 00:33 Blood Culture - Preliminary Blood - Venous No growth after 48 hours. Discharge Plan Discharge Anticipated Discharge Date/Time: 07/12/25 14:06 Patient Disposition: Home, Self-Care Discharge Diagnosis: Acute hypoxic respiratory distress secondary to flu a, AFib with RVR Referrals: Maude Martins MD [Physician, Neurology] - 1 Week Virginie Monet MD [Primary Care Provider, Internal Medicine] - 1 Week Vikas Bañuelos MD [Physician, Cardiology] - 1 Week Jose Johnson MD [Physician, Pulmonology] - 1 Week Discharge Medications: New doxycycline monohydrate 100 mg Capsule 100 mg PO Q12H 2 Days Qty: 4 0RF oseltamivir [Tamiflu] 75 mg Capsule 75 mg PO BID 2 Days Qty: 4 0RF acetaminophen 325 mg Tablet 975 mg PO Q6H PRN (Reason: Pain, Mild 1-3,Fever,Headache) 30 Days Qty: 60 0RF prednisone 20 mg tablet 40 mg PO DAILY 5 Days Qty: 10 0RF Eliquis 5 mg Tablet 5 mg PO BID 30 Days Qty: 60 3RF Continued (DME) lancets [FreeStyle Lancets] 28 gauge misc See Rx Instructions .ROUTE .MEDSUPPLY Qty: 50 6RF Rx Instructions: Once a day albuterol sulfate 2.5 mg /3 mL (0.083 %) solution for nebulization 2.5 mg continuous nebulization QID PRN (Reason: for wheezing) Qty: 180 0RF albuterol sulfate 90 mcg/actuation HFA aerosol inhaler 2 puff PO Q6H PRN (Reason: for wheezing) 30 Days Qty: 8.5 11RF montelukast [Singulair] 10 mg tablet 10 mg PO BEDTIME 30 Days Qty: 30 11RF ropinirole 3 mg tablet 3 mg PO BEDTIME 90 Days Qty: 90 4RF oxycodone 5 mg tablet 5 mg PO TID PRN (Reason: pain) Rx Instructions: Partial Fill upon patient request. isosorbide mononitrate 30 mg tablet extended release 24 hr 30 mg PO BID metformin 500 mg tablet 500 mg PO BIDWM losartan-hydrochlorothiazide 50-12.5 mg tablet 1 tab PO DAILY insulin lispro 100 unit/mL insulin pen See Protocol subcut BID PRN (Reason: when sugar is above 150) Protocol: Insulin Correction Scale Less than or equal to 110 ---- Give (units): 0 111 to 150 Give (units): 0 151 to 200 Give (units): 2 201 to 250 Give (units): 4 251 to 300 Give (units): 6 301 to 350 Give (units): 8 Greater than 350 Give (units): 10 Call MD if Blood Glucose > : 350 Rx Instructions: when waking up in the morning and after dinner Ozempic 1 mg/dose (4 mg/3 mL) pen injector 1 mg subcut [place] levothyroxine 125 mcg tablet 125 mcg PO DAILY@0600 Trelegy Ellipta 200-62.5-25 mcg blister with device 1 ea inhalation DAILY aspirin 81 mg tablet 81 mg PO DAILY Qty: 90 0RF omeprazole 20 mg capsule,delayed release(DR/EC) 20 mg PO BID aripiprazole 2 mg tablet 2 mg PO DAILY duloxetine 60 mg capsule,delayed release(DR/EC) 60 mg PO DAILY (DME) nebulizers [facility] See Rx Instructions .Route Rx Instructions: As directed (DME) nebulizers [facility] See Rx Instructions .Route Rx Instructions: As directed amlodipine 5 mg tablet 5 mg PO DAILY Qty: 90 3RF nicotine 14 mg/24 hr patch 24 hour 1 patch transdermal DAILY Qty: 28 0RF atorvastatin 40 mg tablet 40 mg PO DAILY Qty: 60 3RF magnesium oxide 400 mg magnesium tablet 400 mg PO BEDTIME 90 Days Qty: 90 3RF topiramate 25 mg tablet 25 mg PO BID 30 Days Qty: 60 3RF Rx Instructions: Take 1 tablet by mouth at bedtime for 2 weeks and then increase to 1 tablet by mouth twice daily. Changed hydroxyzine HCl 25 mg tablet 50 mg PO TID PRN (Reason: Anxiety) 30 Days Qty: 90 3RF metoprolol succinate [Toprol XL] 25 mg tablet extended release 24 hr 50 mg PO BID 30 Days Qty: 90 0RF Discontinued lamotrigine 25 mg tablet 12.5 mg PO DAILY Discharge Orders: Discharge Order (Routine); Ordered 07/12/25 Ordered By: Gaye Peralta Diet: Low salt diet Activity on Discharge: As tolerated Stand Alone Forms: Patient Portal Discharge page Print Language: [place] Care Plan Goals: Reason for Hospitalization You were admitted for low oxygen levels and shortness of breath caused by Influenza A infection, which worsened your underlying COPD and sleep apnea. You were also treated for an abnormal heart rhythm (atrial fibrillation) and anxiety. Medications Take all medications exactly as prescribed. - Complete the oseltamivir (Tamiflu) course - Continue apixaban (Eliquis) to prevent blood clots - Take metoprolol as prescribed for heart rate control - Use inhalers and nebulizer treatments as directed - Continue CPAP every night - Take hydroxyzine (Atarax) as needed for anxiety - Continue your home medications for blood pressure, thyroid disease, diabetes, and mood disorders - Do not restart lamotrigine Do not stop or change medications unless instructed by your physician. Activity - Resume activities as tolerated - Rest as needed and avoid overexertion - Gradually increase activity as breathing improves Diet - Resume regular diet - Follow diabetic diet recommendations - Maintain good hydration Oxygen and Breathing Care - Use oxygen only if prescribed - Perform pulmonary hygiene (deep breathing, coughing exercises) - Avoid smoking and secondhand smoke When to Seek Medical Attention Call your doctor or seek urgent care if you experience: - Worsening shortness of breath or low oxygen levels - Chest pain not relieved with rest - Rapid or irregular heartbeat - Fever, chills, or worsening cough - Dizziness, fainting, or new weakness - Bleeding or bruising while on apixaban Call 911 for severe chest pain, severe shortness of breath, or loss of consciousness. Follow Up Appointments - Follow up with your primary care physician within 1?2 weeks - Cardiology for atrial fibrillation management - Pulmonology for COPD and sleep apnea care Additional Instructions - Continue CPAP every night - Wash hands frequently and avoid sick contacts - Get adequate rest while recovering from influenza Health Concerns: See above Plan of Treatment: See above Assessment: See above
== END 2025-07-12 15:29 | disposition home or self-care (01) | DRG 193 ==
LOC: HO.ED 02:19 → HO.EDOVER 05:10 → HO.IMC 15:16
PROVIDERS: Physician Assistant; Physician Assistant Medical; Admitting Provider Internal Medicine; Emergency Provider Emergency Medicine; PCP Internal Medicine; Visit Provider Student in an Organized Health Care Education/Training Program
DX: J10.01 Influenza due to other identified influenza virus with the same other identified influenza virus pneumonia (principal); J96.01 Acute respiratory failure with hypoxia; J44.1 Chronic obstructive pulmonary disease with (acute) exacerbation; J44.0 Chronic obstructive pulmonary disease with (acute) lower respiratory infection; F17.210 Nicotine dependence, cigarettes, uncomplicated; Z71.6 Tobacco abuse counseling; I25.10 Atherosclerotic heart disease of native coronary artery without angina pectoris; I27.20 Pulmonary hypertension, unspecified; G47.33 Obstructive sleep apnea (adult) (pediatric); E06.3 Autoimmune thyroiditis; I48.91 Unspecified atrial fibrillation; E11.9 Type 2 diabetes mellitus without complications; K21.9 Gastro-esophageal reflux disease without esophagitis; F31.9 Bipolar disorder, unspecified; G25.81 Restless legs syndrome; G43.909 Migraine, unspecified, not intractable, without status migrainosus; F41.9 Anxiety disorder, unspecified; I10 Essential (primary) hypertension; Z20.822 Contact with and (suspected) exposure to COVID-19; Z79.4 Long term (current) use of insulin; Z79.84 Long term (current) use of oral hypoglycemic drugs; Z79.01 Long term (current) use of anticoagulants; Z79.82 Long term (current) use of aspirin; Z79.890 Hormone replacement therapy; Z79.899 Other long term (current) drug therapy
CPT/HCPCS: 36415; 71045; 80048; 80053; 80307; 81001; 82803; 82947; 83605; 83735; 83880; 84439; 84443; 84480; 84484; 85025; 87040; 87637; 93005; 93306; 94640; 97162; 99285; J0131; J1163; J1271; J1885; J2270; J2405; J2919; J3360; J3475; J7120

== ENCOUNTER → 2025-07-09 00:17 | Outpatient (BNV) | payer OTHER, SELFPAY | PROVIDERS: Emergency Provider Emergency Medicine; PCP Internal Medicine; Visit Provider Radiology Neuroradiology | DX: J98.11 Atelectasis (principal) | CPT/HCPCS: 71045 ==

== ENCOUNTER → 2025-07-09 00:18 | Outpatient (BNV) | payer OTHER, SELFPAY | PROVIDERS: Admitting Provider Internal Medicine; Emergency Provider Emergency Medicine; PCP Internal Medicine; Visit Provider Internal Medicine Cardiovascular Disease | DX: I48.91 Unspecified atrial fibrillation (principal) | CPT/HCPCS: 93010 ==

== ENCOUNTER 2025-07-09 04:54 | Outpatient (BNV) | payer OTHER, SELFPAY | END 2025-07-10 07:00 | PROVIDERS: Admitting Provider Internal Medicine; Emergency Provider Emergency Medicine; PCP Internal Medicine; Visit Provider Internal Medicine Cardiovascular Disease | DX: I51.7 Cardiomegaly (principal); I34.81 Nonrheumatic mitral (valve) annulus calcification | CPT/HCPCS: 93306 ==

== ENCOUNTER → 2025-07-09 04:54 | Outpatient (BNV) | payer OTHER, SELFPAY | PROVIDERS: Admitting Provider Internal Medicine; Emergency Provider Emergency Medicine; PCP Internal Medicine; Visit Provider Internal Medicine | DX: R07.2 Precordial pain (principal) | CPT/HCPCS: 99222; 99233; 99499 ==